=== PATIENT | female | born 1960 | race Caucasian/White ===

== ENCOUNTER 2016-08-09 11:20 | Inpatient (IN) | payer OTHER ==
[~2016-08-09] VITALS: Ht 167.6 cm; Wt 77.0 kg
[2016-08-09] VITALS (7 sets, daily range): BP systolic 137–169; BP diastolic 73–90; PULSE 84–103; RESP 18–20; TEMP 97.8–99.3; O2SAT 91–98
[~2016-08-09 11:20] MED LIST: ASPI1TAB69 PO; CITA40TA4 PO; GABA800T PO; HYDR-3535 PO; HYDR25TA5 PO; LISI40TA PO; MIRA33504 PO; SIMV40TA PO; TRAM50TA PO; WARF-23 PO
--- NOTE | 2016-08-09 11:30 | PD ---
HPI Chief Complaint: Altered Mental Status Time Seen by Provider: 11:30 Travel History International Travel<30 days: No Contact w/Intl Traveler<30days: No Traveled to known affect area: No History of Present Illness HPI 55-year-old female with history of some dependent diabetes and reportedly history of stroke, brought into the emergency department via EMS with change in mental status. Patient appears somewhat delirious, but does respond to questions and commands appropriately. There was some question of neurological symptoms suggestive of stroke. Patient reports several day history of burning urination, and vomiting last evening and today. Patient does not complain of pain or headache. Patient does know her name but cannot remember her date of . Patient is allergic to penicillin. PFSH Past Medical History Arthritis: Yes Asthma: Yes Autoimmune Disease: Yes (LUPUS) Blood Disorders: No Anxiety: Yes Depression: Yes Heart Rhythm Problems: No Cancer: No Cardiovascular Problems: No High Cholesterol: Yes Chest Pain: No Congestive Heart Failure: No COPD: No Cerebrovascular Accident: Yes (CVA November 2012) Diabetes: Yes Diminished Hearing: No Endocrine: Yes (DM II) Glaucoma: No Genitourinary: No Headaches: No Hepatitis: No Hiatal Hernia: Yes Hypertension: Yes Immune Disorder: Yes (LUPUS) Kidney Stones: No Musculoskeletal: Yes Neurologic: Yes (CVA November 2012) Psychiatric: Yes Reproductive: Yes (ovary removed) Respiratory: Yes (SLEEP APNEA) Migraines: No Myocardial Infarction: No Renal Failure: No Seizures: No Sickle Cell Disease: No Sleep Apnea: Yes Thyroid Disease: Yes (hypothyroidism) Ulcer: No Menopausal: Yes : 3 Para: 3 Ovarian Cysts: Yes (R) Tubal Ligation: Yes (R ) Past Surgical History Abdominal Surgery: Yes (Cholecystectomy) Appendectomy: No Cardiac Surgery: No Cholecystectomy: Yes Ear Surgery: No Endocrine Surgery: No Eye Surgery: No Genitourinary Surgery: No Gynecologic Surgery: Yes (ovary removed 15 yrs ago.) Oral Surgery: No Thoracic Surgery: No Other Surgery: Yes Social History Alcohol Use: Yes (OCCASIONALLY) Tobacco Use: No (MARIJUANA) Substance Use: Yes (MARIJUANA) Allergies-Medications (Allergen,Severity, Reaction): Coded Allergies: Penicillin (Verified Allergy, Severe, 06/28/16) Reported Meds & Prescriptions Reported Meds & Active Scripts Active Warfarin 5 Mg Tab 5 Mg PO DAILY Miralax Powder (Polyethylene Glycol 3350 Powder) 17 Gm Powd 17 Gm PO DAILY Mix and dissolve one measuring cap-ful (17 grams) in water or juice. Lisinopril 40 Mg Tab 40 Mg PO DAILY Hydrochlorothiazide 25 Mg Tab 25 Mg PO DAILY Gabapentin 800 Mg Tab 800 Mg PO TID Citalopram (Citalopram Hydrobromide) 40 Mg Tab 40 Mg PO DAILY Aspirin 81 Mg Tabdr 81 Mg PO DAILY Simvastatin 40 Mg Tab 40 Mg PO HS Lortab (Hydrocodone-Acetaminophen) 10-325 Mg Tab 1 Tab PO Q4H PRN Tramadol (Tramadol HCl) 50 Mg Tab 50 Mg PO Q4H PRN Review of Systems ROS Limitations: Clinical Condition, Altered Mental Status General / Constitutional: No: Fever Eyes: No: Visual changes HENT: No: Headaches Cardiovascular: No: Chest Pain or Discomfort Respiratory: No: Shortness of Breath Gastrointestinal: No: Abdominal Pain Genitourinary: No: Dysuria Musculoskeletal: No: Pain Skin: No Rash Neurologic: No: Weakness Psychiatric: No: Depression Endocrine: No: Polydipsia Hematologic/Lymphatic: No: Easy Bruising Physical Exam Exam Limitations: Clinical Condition, Altered Mental Status Narrative GENERAL: Patient appears somewhat delirious, but no acute distress. Patient smells of urine. SKIN: Warm and dry. Mild pallor. Mildly poor turgor. HEAD: Atraumatic. Normocephalic. EYES: Pupils equal and round. No scleral icterus. No injection or drainage. ENT: No nasal bleeding or discharge. Mucous membranes pink and somewhat dry. TMs are clear. Pharynx is normal. Airway is patent. NECK: Trachea midline. No JVD. Supple nontender. CARDIOVASCULAR: Regular rate and rhythm. No murmurs gallops or rubs. RESPIRATORY: No accessory muscle use. Clear to auscultation. Breath sounds equal bilaterally. GASTROINTESTINAL: Abdomen soft, non-tender, nondistended. Hepatic and splenic margins not palpable. No CVA tenderness. MUSCULOSKELETAL: Extremities without clubbing, cyanosis, or edema. No obvious deformities. NEUROLOGICAL: Awake and alert. No obvious cranial nerve deficits. Motor grossly within normal limits. Five out of 5 muscle strength in the arms and legs. Patient appears delirious but does respond appropriately to questions, but has memory issues regarding her date of . PSYCHIATRIC: Appropriate mood and affect; insight and judgment normal. Data Data Last Documented VS Vital Signs Date Time Temp Pulse Resp B/P Pulse Ox O2 Delivery O2 Flow Rate FiO2 08/09/16 13:52 84 18 137/84 98 Room Air 08/09/16 11:38 3 08/09/16 11:33 99.3 Orders Electrocardiogram (08/09/16 11:31) Alcohol (Ethanol) (08/09/16 11:31) Ammonia (08/09/16 11:31) Complete Blood Count With Diff (08/09/16 11:31) Comprehensive Metabolic Panel (08/09/16 11:31) Creatine Kinase (Cpk) (08/09/16 11:31) Drug Screen, Random Urine (08/09/16 11:31) Prothrombin Time / Inr (Pt) (08/09/16 11:31) Act Partial Throm Time (Ptt) (08/09/16 11:31) Thyroid Stimulating Hormone (08/09/16 11:31) Lactic Acid Sepsis Protocol (08/09/16 11:31) Urinalysis - C+S If Indicated (08/09/16 11:31) Blood Culture (08/09/16 11:31) Chest, Single Ap (08/09/16 11:31) Ct Brain W/O Iv Contrast(Rout) (08/09/16 11:31) Blood Glucose (08/09/16 11:31) Ecg Monitoring (08/09/16 11:31) Iv Access Insert/Monitor (08/09/16 11:31) Oximetry (08/09/16 11:31) Sodium Chloride 0.9% Flush (Ns Flush) (08/09/16 11:45) Sodium Chlor 0.9% 1000 Ml Inj (Ns 1000 M (08/09/16 11:31) Urinary Catheter Insert/Apply (08/09/16 11:41) Aztreonam Inj (Azactam Inj) (08/09/16 11:54) Gentamicin Inj (Gentamicin Inj) (08/09/16 11:54) Sodium Chlor 0.9% 1000 Ml Inj (Ns 1000 M (08/09/16 11:54) Sodium Chlor 0.9% 1000 Ml Inj (Ns 1000 M (08/09/16 11:54) Sodium Chlor 0.9% 1000 Ml Inj (Ns 1000 M (08/09/16 11:54) Urine Culture (08/09/16 12:01) Type And Screen (08/09/16 12:35) Ct Abd/Pel W/O Iv Contrast (08/09/16 ) Ondansetron Inj (Zofran Inj) (08/09/16 13:15) Pantoprazole Inj (Protonix Inj) (08/09/16 13:15) Phytonadione (Mephyton) (08/09/16 13:30) Admit To Inpatient (08/09/16 ) Code Status (08/09/16 13:33) Vital Signs (Adult) Q4H (08/09/16 13:33) Activity Oob With Assistance (08/09/16 13:33) Sodium Chloride 0.9% Flush (Ns Flush) (08/09/16 13:45) Sodium Chloride 0.9% Flush (Ns Flush) (08/09/16 21:00) Acetaminophen (Tylenol) (08/09/16 13:45) Ondansetron Inj (Zofran Inj) (08/09/16 13:45) Magnesium Hydroxide Liq (Milk Of Magnesi (08/09/16 13:45) Pt Request For Service (08/09/16 13:33) Scd Bilateral/Knee High JOE.BID (08/09/16 13:33) Naloxone Inj (Narcan Inj) (08/09/16 13:45) Inpatient Certification (08/09/16 ) Free Thyroxine (T4) (08/09/16 13:33) Rapid Plasma Regin (Rpr) W Ttr (08/09/16 13:33) Vitamin B12 (08/09/16 13:33) Folate, Serum (08/09/16 13:33) Phytonadione Inj (Vitamin K Inj) (08/09/16 14:00) Aspirin Ec (Ecotrin Ec) (08/10/16 09:00) Citalopram (Celexa) (08/10/16 09:00) Gabapentin (Neurontin) (08/09/16 18:00) Hydrochlorothiazide (Hydrodiuril) (08/10/16 09:00) Acetamin-Hydrocod 325-10 Mg ([place] 10-32 (08/09/16 14:00) Lisinopril (Prinivil) (08/10/16 09:00) Polyethylene Glycol (Miralax) (08/10/16 09:00) Warfarin (Coumadin) (08/10/16 09:00) (Nf) Simvastatin (08/09/16 21:00) Prothrombin Time / Inr (Pt) (08/10/16 06:00) Medium Novolog Scale (08/09/16 16:00) Diet Diabetic (08/09/16 Lunch) Nursing Bedside Swallow Assess .ONCE (08/09/16 13:52) Labs Laboratory Tests Test 08/09/16 08/09/16 08/09/16 11:40 11:46 12:01 Sodium Level 134 MEQ/L Potassium Level 4.7 MEQ/L Chloride Level 92 MEQ/L Carbon Dioxide Level 20.6 MEQ/L Anion Gap 21 MEQ/L Blood Urea Nitrogen 104 MG/DL Creatinine 8.37 MG/DL Estimat Glomerular Filtration 5 ML/MIN Rate Random Glucose 138 MG/DL Lactic Acid Level 2.1 mmol/L Calcium Level 8.4 MG/DL Total Bilirubin 0.4 MG/DL Aspartate Amino Transf 53 U/L (AST/SGOT) Alanine Aminotransferase 54 U/L (ALT/SGPT) Alkaline Phosphatase 105 U/L Ammonia 27 MCMOL/L Total Creatine Kinase 113 U/L Total Protein 7.0 GM/DL Albumin 3.6 GM/DL Thyroid Stimulating Hormone 0.192 uIU/ML 3rd Gen Ethyl Alcohol Level LESS THAN 3 MG/DL White Blood Count 21.2 TH/MM3 Red Blood Count 4.53 MIL/MM3 Hemoglobin 12.5 GM/DL Hematocrit 37.0 % Mean Corpuscular Volume 81.7 FL Mean Corpuscular Hemoglobin 27.5 PG Mean Corpuscular Hemoglobin 33.7 % Concent Red Cell Distribution Width 15.2 % Platelet Count 321 TH/MM3 Mean Platelet Volume 9.5 FL Neutrophils (%) (Auto) 84.3 % Lymphocytes (%) (Auto) 7.4 % Monocytes (%) (Auto) 7.8 % Eosinophils (%) (Auto) 0.0 % Basophils (%) (Auto) 0.5 % Neutrophils # (Auto) 17.9 TH/MM3 Lymphocytes # (Auto) 1.6 TH/MM3 Monocytes # (Auto) 1.7 TH/MM3 Eosinophils # (Auto) 0.0 TH/MM3 Basophils # (Auto) 0.1 TH/MM3 CBC Comment AUTO DIFF Differential Comment AUTO DIFF CONFIRMED Platelet Estimate NORMAL Platelet Morphology Comment NORMAL Ovalocytes 1+ Prothrombin Time 127.2 SEC Prothromb Time International 10.4 RATIO Ratio Activated Partial 50.4 SEC Thromboplast Time Urine Color YELLOW Urine Turbidity HAZY Urine pH 5.5 Urine Specific [place] 1.013 Urine Protein 30 mg/dL Urine Glucose (UA) NEG mg/dL Urine Ketones TRACE mg/dL Urine Occult Blood SMALL Urine Nitrite NEG Urine Bilirubin NEG Urine Urobilinogen LESS THAN 2.0 MG/DL Urine Leukocyte Esterase SMALL Urine RBC 4 /hpf Urine WBC 4 /hpf Urine Squamous Epithelial <1 /hpf Cells Urine Bacteria MOD /hpf Urine Hyaline Casts 4 /lpf Microscopic Urinalysis Comment CATH-CULTURE IND Urine Opiates Screen NEG Urine Barbiturates Screen NEG Urine Amphetamines Screen NEG Urine Benzodiazepines Screen NEG Urine Cocaine Screen NEG Urine Cannabinoids Screen NEG MDM Medical Decision Making Medical Screen Exam Complete: Yes Emergency Medical Condition: Yes Differential Diagnosis Altered mental status. Urosepsis. Sepsis. Dehydration. Electrolyte imbalance. Possible intracranial process. Narrative Course Patient is medically stable at time of exam. Labs ordered including CBC, CMP, creatinine kinase, drug screen, lactic acid protocol, PT PTT and INR, alcohol level, urinalysis, and TSH. Blood cultures ordered 2. EKG and chest x-ray are ordered. Head CT is ordered. IV access is obtained and urinary catheter is applied. Patient is started on normal saline bolus of 1000 mL 3. Patient is started on Aztreonam 1000 mg IV as well as gentamicin 380 mg IV. Chest x-ray is unremarkable per radiologist. Head CT is unremarkable for acute process per radiologist. EKG shows sinus rhythm with somewhat shortened AR interval otherwise unremarkable. This is reviewed with Dr. Pearson. CBC shows leukocytosis of 21.2. Lactic acid is 2.1. Urinalysis shows obvious UTI and urine culture is pending. PT is 127.2 with an INR of 10.4. Type and screen is ordered due to the patient's high INR. Rectal Guaiac is slightly positive. Patient is discussed with Dr. Pearson, and the patient is assessed by her as well. CT of the abdomen is added as the patient's urine is questionable as a source for her sepsis. Patient is given 40 mg pantoprazole IV as well as 5 mg IV vitamin K. Call was placed to the hospitalist for admission. 1355 [address] patient discussed with Dr. Orellana who is admitting the patient. CT of the abdomen is still pending. Diagnosis Primary Impression: Sepsis due to urinary tract infection Additional Impressions: Elevated INR (international normalized ratio) due to prior anticoagulant medication ingestion Renal insufficiency Admitting Information Admitting Physician Requests: Admit Condition: Stable Arpan Gill Aug 09, 2016 11:30
[2016-08-09] MEDS ORDERED: SODIUM CHLOR 0.9% 1000 ML INJ 1,000 ML IV SCH (11:31)
[2016-08-09] MEDS ORDERED: SODIUM CHLORIDE 0.9% FLUSH 5 ML FLUSH IVF PRN (11:45)
[2016-08-09] MEDS ORDERED: SODIUM CHLORIDE 0.9% IV STA (11:54)
[2016-08-09] MEDS ORDERED: SODIUM CHLOR 0.9% 1000 ML INJ 1,000 ML IV ONE ×2 (11:54)
[2016-08-09] MEDS ORDERED: SODIUM CHLOR 0.9% 1000 ML INJ 400 ML IV ONE (11:54)
[2016-08-09] MEDS ORDERED: GENTAMICIN IV STA (11:54)
[2016-08-09] MEDS ORDERED: AZTREONAM INJ 1,000 MG in SODIUM CHLORIDE 0.9% INJ 100 ML IV STA (11:54)
--- NOTE | 2016-08-09 12:03 | RADRPT ---
EXAM DATE/TIME: 08/09/2016 11:39 [facility] COMPARISON: CHEST SINGLE AP, July 13, 2014, 11:14. INDICATIONS : Fever, short of breath MEDICAL HISTORY : Diabetes mellitus type II. SURGICAL HISTORY : None. ENCOUNTER: Initial ACUITY: 1 day PAIN SCORE: Non-responsive. LOCATION: Bilateral chest FINDINGS: The cardiac silhouette is normal in transverse diameter. The lungs are hypoinflated but clear. No eff usions are identified. CONCLUSION: 1. No acute cardiopulmonary disease. Thomas López MD on August 09, 2016 at 12:01 Board Certified Radiologist. This report was verified electronically.
[2016-08-09 12:05] LABS: AUTOMATED NEUTROPHIL # 17.9 TH/MM3 (1.8-7.7); BASOPHIL # 0.1 TH/MM3 (0-0.2); BASOPHIL % 0.5 % (0.0-2.0); LYMPH % 7.4 % (9.0-44.0); LYMPHOCYTE # 1.6 TH/MM3 (1.0-4.8); MEAN CELL VOLUME 81.7 FL (80.0-100.0); MEAN CORPUSCULAR HEMOGLOBIN 27.5 PG (27.0-34.0); MEAN CORPUSCULAR HGB CONC 33.7 % (32.0-36.0); MONO % 7.8 % (0.0-8.0); NEUT % 84.3 % (16.0-70.0); PLATELET COUNT 321 TH/MM3 (150-450); RED BLOOD COUNT 4.53 MIL/MM3 (4.00-5.30); RED CELL DISTRIBUTION WIDTH 15.2 % (11.6-17.2); WHITE BLOOD COUNT 21.2 TH/MM3 (4.0-11.0)
[2016-08-09 12:07] LABS: HEMO FLAGS AUTO DIFF
[2016-08-09 12:19] LABS: ALT (GPT) 54 U/L (10-53); ANION GAP 21 MEQ/L (5-15); AST (GOT) 53 U/L (15-37); BICARBONATE 20.6 MEQ/L (21.0-32.0); BLOOD UREA NITROGEN 104 MG/DL (7-18); CHLORIDE 92 MEQ/L (98-107); GLOMERULAR FILTRATION RATE 5 ML/MIN (>89); POTASSIUM 4.7 MEQ/L (3.5-5.1); SODIUM (NA) 134 MEQ/L (136-145)
[2016-08-09 12:29] LABS: ALKALINE PHOSPHATASE 105 U/L (45-117); CREATINE KINASE 113 U/L (26-192); TOTAL BILIRUBIN ADULT 0.4 MG/DL (0.2-1.0)
--- NOTE | 2016-08-09 12:30 | RADRPT ---
EXAM DATE/TIME: 08/09/2016 12:15 [facility] COMPARISON: MRI BRAIN W & W/O CONTRAST, July 24, 2014, 16:07. CT BRAIN W/O CONTRAST, July 18, 2014, 23: 24. INDICATIONS : Altered mental status today. RADIATION DOSE: 56.35 CTDIvol (mGy) MEDICAL HISTORY : Stroke. Hypertension. diabetes SURGICAL HISTORY : None. ENCOUNTER: Initial ACUITY: 1 day PAIN SCALE: 0/10 LOCATION: Bilateral head TECHNIQUE: Multiple contiguous axial images were obtained of the head. Using automated exposure control and adj ustment of the mA and/or kV according to patient size, radiation dose was kept as low as reasonably a chievable to obtain optimal diagnostic quality images. FINDINGS: Old lacunar infarcts are evident in the left basalganglia. Ventricular size is appropriate. There i s no parenchymal hemorrhage, acute infarction or extra-axial fluid. There is an 1 cm calcification h igh on the right stable in the interval, probably associated with the skull. Posterior fossa is unre markable. CONCLUSION: Negative for an acute process. Rasheed Zhou MD FACR on August 09, 2016 at 12:26 Board Certified Radiologist. This report was verified electronically.
[2016-08-09 12:32] LABS: APTT (PATIENT) 50.4 SEC (24.3-30.1); PROTHROMBIN TIME - PATIENT 127.2 SEC (9.8-11.6)
[2016-08-09 12:32] LABS: BACTERIA, URINE MOD /hpf; BLOOD, URINE SMALL (NEG); COMMENT (UR) CATH-CULTURE IND; CULTURE IF INDICATED CATH CULTURE IND; GLUCOSE,URINE NEG (NEG); HYALINE CAST, URINE 4 /lpf (RARE); KETONE, URINE TRACE mg/dL (NEG); NITRITE,URINE NEG (NEG); PH, URINE 5.5 (5.0-8.5); SQUAMOUS EPITHELIAL CELL URINE <1 /hpf (0-5); URINE COLOR YELLOW (YELLW/STRAW)
[2016-08-09 12:35] LABS: INTERNATIONAL NORMALIZED RATIO 10.4 RATIO
[2016-08-09 12:35] LABS: AMPHETAMINE, URINE NEG (NEG); BARBITURATES, URINE NEG (NEG); COCAINE, URINE NEG (NEG)
[2016-08-09 12:39] LABS: OVALOCYTES 1+ (NORMAL); PLATELET ESTIMATE SMEAR NORMAL (NORMAL); PLATELET MORPHOLOGY NORMAL (NORMAL); SCAN/DIFF AUTO DIFF CONFIRMED
[2016-08-09] MEDS ORDERED: ONDANSETRON HCL 4 MG/2 ML VIAL IVP ONE (13:15)
[2016-08-09] MEDS ORDERED: PANTOPRAZOLE SODIUM 40 MG VIAL IVP ONE (13:15)
[2016-08-09] MEDS ORDERED: PHYTONADIONE 5 MG TAB PO ONE (13:30)
[2016-08-09] MEDS ORDERED: NALOXONE HCL 0.4 MG/ML AMP IV PRN (13:45)
[2016-08-09] MEDS ORDERED: MAGNESIUM HYDROXIDE SUSP 30 ML CUP PO PRN (13:45)
[2016-08-09] MEDS ORDERED: ACETAMINOPHEN 325 MG TAB PO PRN (13:45)
[2016-08-09] MEDS ORDERED: ONDANSETRON HCL 4 MG/2 ML VIAL IVP PRN (13:45)
[2016-08-09] MEDS ORDERED: SODIUM CHLORIDE 0.9% FLUSH 5 ML FLUSH FLUSH PRN (13:45)
[2016-08-09 13:58] LABS: LACTIC ACID GHOST NOT REPORTABLE
[2016-08-09] MEDS ORDERED: PHYTONADIONE INJ 10 MG in SODIUM CHLORIDE 0.9% INJ 50 ML IV ONE (14:00)
--- NOTE | 2016-08-09 14:23 | RADRPT ---
EXAM DATE/TIME: 08/09/2016 13:28 [facility] COMPARISON: No previous studies available for comparison. INDICATIONS : Burning urination with fever today. ORAL CONTRAST: No oral contrast ingested. RADIATION DOSE: 9.96 CTDIvol (mGy) MEDICAL HISTORY : Lupus. Hernia, hiatal. Diabetes SURGICAL HISTORY : Cholecystectomy. Tubal ligation. Right ovarian cyst ENCOUNTER: Initial ACUITY: 1 day PAIN SCALE: 0/10 LOCATION: Abdomen TECHNIQUE: Volumetric scanning of the abdomen and pelvis was performed. Using automated exposure control and ad justment of the mA and/or kV according to patient size, radiation dose was kept as low as reasonably achievable to obtain optimal diagnostic quality images. FINDINGS: Consolidative changes are seen in the right lung base. The liver is somewhat small and shrunken. Dominguez rgical clips are seen in the gallbladder fossa. Minimal calcifications are seen in the pancreas. The right adrenal is normal. There is a low density mass in the left adrenal measuring 1.4 cm, most likely an adenoma. Right and left kidneys are unremarkable. There are no renal stones identified. In the pelvis, adnexal regions are unremarkable. Bladder is decompressed by a Cardoso. Mild degenerative changes are noted. CONCLUSION: 1. Minimal consolidative changes in the right base, suspicious for an inflammatory process. 2. Left adrenal mass, probably adenoma. Rasheed Zhou MD FACR on August 09, 2016 at 13:58 Board Certified Radiologist. This report was verified electronically.
[2016-08-09 15:11] LABS: FREE T4 1.31 NG/DL (0.76-1.46)
[2016-08-09] MEDS: INSULIN ASPART SUPPLEMENTAL SCALE SQ SCH ×2 (15:57→22:18)
[2016-08-09] MEDS ORDERED: METF1000 PO (16:01)
--- NOTE | 2016-08-09 17:15 | PD ---
Data Data Last Documented VS Vital Signs Date Time Temp Pulse Resp B/P Pulse Ox O2 Delivery O2 Flow Rate FiO2 08/09/16 13:52 98.2 84 18 137/84 98 Room Air 08/09/16 11:38 3 Orders Electrocardiogram (08/09/16 11:31) Alcohol (Ethanol) (08/09/16 11:31) Ammonia (08/09/16 11:31) Complete Blood Count With Diff (08/09/16 11:31) Comprehensive Metabolic Panel (08/09/16 11:31) Creatine Kinase (Cpk) (08/09/16 11:31) Drug Screen, Random Urine (08/09/16 11:31) Prothrombin Time / Inr (Pt) (08/09/16 11:31) Act Partial Throm Time (Ptt) (08/09/16 11:31) Thyroid Stimulating Hormone (08/09/16 11:31) Lactic Acid Sepsis Protocol (08/09/16 11:31) Urinalysis - C+S If Indicated (08/09/16 11:31) Blood Culture (08/09/16 11:31) Chest, Single Ap (08/09/16 11:31) Ct Brain W/O Iv Contrast(Rout) (08/09/16 11:31) Blood Glucose (08/09/16 11:31) Ecg Monitoring (08/09/16 11:31) Iv Access Insert/Monitor (08/09/16 11:31) Oximetry (08/09/16 11:31) Sodium Chloride 0.9% Flush (Ns Flush) (08/09/16 11:45) Sodium Chlor 0.9% 1000 Ml Inj (Ns 1000 M (08/09/16 11:31) Urinary Catheter Insert/Apply (08/09/16 11:41) Aztreonam Inj (Azactam Inj) (08/09/16 11:54) Gentamicin Inj (Gentamicin Inj) (08/09/16 11:54) Sodium Chlor 0.9% 1000 Ml Inj (Ns 1000 M (08/09/16 11:54) Sodium Chlor 0.9% 1000 Ml Inj (Ns 1000 M (08/09/16 11:54) Sodium Chlor 0.9% 1000 Ml Inj (Ns 1000 M (08/09/16 11:54) Urine Culture (08/09/16 12:01) Type And Screen (08/09/16 12:35) Ct Abd/Pel W/O Iv Contrast (08/09/16 ) Ondansetron Inj (Zofran Inj) (08/09/16 13:15) Pantoprazole Inj (Protonix Inj) (08/09/16 13:15) Phytonadione (Mephyton) (08/09/16 13:30) Admit To Inpatient (08/09/16 ) Code Status (08/09/16 13:33) Vital Signs (Adult) Q4H (08/09/16 13:33) Activity Oob With Assistance (08/09/16 13:33) Sodium Chloride 0.9% Flush (Ns Flush) (08/09/16 13:45) Sodium Chloride 0.9% Flush (Ns Flush) (08/09/16 21:00) Acetaminophen (Tylenol) (08/09/16 13:45) Ondansetron Inj (Zofran Inj) (08/09/16 13:45) Magnesium Hydroxide Liq (Milk Of Magnesi (08/09/16 13:45) Pt Request For Service (08/09/16 13:33) Scd Bilateral/Knee High JOE.BID (08/09/16 13:33) Naloxone Inj (Narcan Inj) (08/09/16 13:45) Inpatient Certification (08/09/16 ) Free Thyroxine (T4) (08/09/16 13:33) Rapid Plasma Regin (Rpr) W Ttr (08/09/16 13:33) Vitamin B12 (08/09/16 13:33) Folate, Serum (08/09/16 13:33) Phytonadione Inj (Vitamin K Inj) (08/09/16 14:00) Aspirin Ec (Ecotrin Ec) (08/10/16 09:00) Citalopram (Celexa) (08/10/16 09:00) Gabapentin (Neurontin) (08/09/16 18:00) Hydrochlorothiazide (Hydrodiuril) (08/10/16 09:00) Acetamin-Hydrocod 325-10 Mg ([place] 10-32 (08/09/16 14:00) Lisinopril (Prinivil) (08/10/16 09:00) Polyethylene Glycol (Miralax) (08/10/16 09:00) Warfarin (Coumadin) (08/10/16 09:00) Pravastatin (Pravachol) (08/09/16 21:00) Prothrombin Time / Inr (Pt) (08/10/16 06:00) Insulin Aspart Supplemtl Scale (Novolog (08/09/16 16:00) Diet Diabetic (08/09/16 Lunch) Nursing Bedside Swallow Assess .ONCE (08/09/16 13:52) Admit Order (Ed Use Only) (08/09/16 13:57) Labs Laboratory Tests Test 08/09/16 08/09/16 08/09/16 08/09/16 11:40 11:46 12:01 13:21 Sodium Level 134 MEQ/L Potassium Level 4.7 MEQ/L Chloride Level 92 MEQ/L Carbon Dioxide Level 20.6 MEQ/L Anion Gap 21 MEQ/L Blood Urea Nitrogen 104 MG/DL Creatinine 8.37 MG/DL Estimat Glomerular Filtration 5 ML/MIN Rate Random Glucose 138 MG/DL Lactic Acid Level 2.1 mmol/L Calcium Level 8.4 MG/DL Total Bilirubin 0.4 MG/DL Aspartate Amino Transf 53 U/L (AST/SGOT) Alanine Aminotransferase 54 U/L (ALT/SGPT) Alkaline Phosphatase 105 U/L Ammonia 27 MCMOL/L Total Creatine Kinase 113 U/L Total Protein 7.0 GM/DL Albumin 3.6 GM/DL Vitamin B12 Level 1343 PG/ML Folate 5.0 NG/ML Free Thyroxine 1.31 NG/DL Thyroid Stimulating Hormone 0.192 uIU/ML 3rd Gen Ethyl Alcohol Level LESS THAN 3 MG/DL White Blood Count 21.2 TH/MM3 Red Blood Count 4.53 MIL/MM3 Hemoglobin 12.5 GM/DL Hematocrit 37.0 % Mean Corpuscular Volume 81.7 FL Mean Corpuscular Hemoglobin 27.5 PG Mean Corpuscular Hemoglobin 33.7 % Concent Red Cell Distribution Width 15.2 % Platelet Count 321 TH/MM3 Mean Platelet Volume 9.5 FL Neutrophils (%) (Auto) 84.3 % Lymphocytes (%) (Auto) 7.4 % Monocytes (%) (Auto) 7.8 % Eosinophils (%) (Auto) 0.0 % Basophils (%) (Auto) 0.5 % Neutrophils # (Auto) 17.9 TH/MM3 Lymphocytes # (Auto) 1.6 TH/MM3 Monocytes # (Auto) 1.7 TH/MM3 Eosinophils # (Auto) 0.0 TH/MM3 Basophils # (Auto) 0.1 TH/MM3 CBC Comment AUTO DIFF Differential Comment AUTO DIFF CONFIRMED Platelet Estimate NORMAL Platelet Morphology Comment NORMAL Ovalocytes 1+ Prothrombin Time 127.2 SEC Prothromb Time International 10.4 RATIO Ratio Activated Partial 50.4 SEC Thromboplast Time Urine Color YELLOW Urine Turbidity HAZY Urine pH 5.5 Urine Specific [place] 1.013 Urine Protein 30 mg/dL Urine Glucose (UA) NEG mg/dL Urine Ketones TRACE mg/dL Urine Occult Blood SMALL Urine Nitrite NEG Urine Bilirubin NEG Urine Urobilinogen LESS THAN 2.0 MG/DL Urine Leukocyte Esterase SMALL Urine RBC 4 /hpf Urine WBC 4 /hpf Urine Squamous Epithelial <1 /hpf Cells Urine Bacteria MOD /hpf Urine Hyaline Casts 4 /lpf Microscopic Urinalysis Comment CATH-CULTURE IND Urine Opiates Screen NEG Urine Barbiturates Screen NEG Urine Amphetamines Screen NEG Urine Benzodiazepines Screen NEG Urine Cocaine Screen NEG Urine Cannabinoids Screen NEG Blood Type A POSITIVE Antibody Screen NEGATIVE MDM Supervised Visit with [facility]: Yes Narrative Course The history, exam, and medical decision-making in the associated midlevel provider note were completed with my assistance. I reviewed and agree with the findings presented. I attest that I had a [id number] encounter with the patient on the same day, and personally performed and documented my assessment and findings in the medical record. *My assessment and Findings: This is a 55-year-old female who has a history of stroke in the past who presents to the emergency department with persistent vomiting and poor oral intake over the past week. She is very ill-appearing on exam, dry, with sunken eyes and a depressed mental status but she does awaken and per her has a baseline mental status. She was placed on a monitor and an IV was established. Labs were obtained which demonstrate a leukocytosis and acute renal failure. Her potassium is normal. Her INR is 10. She was Hemoccult positive and her BUN is quite high, concerning for possible GI bleed. I'm not certain what her source of infection is. She does may have an early pneumonia visualized on CT scan of the abdomen. She also has some whites in her urinalysis. Patient was covered with broad-spectrum antibiotics and given IV hydration. She will be admitted for continued renal and infectious disease management. Diagnosis Primary Impression: Sepsis due to urinary tract infection Additional Impressions: Elevated INR (international normalized ratio) due to prior anticoagulant medication ingestion Renal insufficiency Condition: Stable Lili,Denise Jade MD Aug 09, 2016 17:14
[2016-08-09] MEDS: GABAPENTIN 400 MG CAP PO SCH (18:23)
--- NOTE | 2016-08-09 18:28 | HHI.HP ---
HPI Service [facility] Hospitalists Primary Care Physician Shan Quick MD Admission Diagnosis Sepsis/Renal Insufficientcy/Elevated INR/Guiac Pos. Chief Complaint: AMS Travel History International Travel<30 Days: No Contact w/Intl Traveler <30 Da: No Traveled to Known Affected Are: No History of Present Illness Mrs. Velasquez is a 55 y/o WF with diabetes, reportedly history of stroke, HTN , and hyperlipidemia who was brought into the ED on 08/09/16 via EMS with change in mental status. Per the ER notes the pt appeared somewhat delirious at initial presentation, but was responding to questions and commands appropriately. There was some question of neurological symptoms suggestive of stroke. Patients reported that for the last week the pt has had vomiting 2-3 times per day and very little po intake. He states that the emesis was dark colored but no red blood. Pt had some loose stools but denies any diarrhea. In the ED pt was noted to have an elevated WBC count of 21.2 and acute renal failure with Cr 8.37. Her INR was significantly elevated at 10.4. She was given a dose of Vitamin K po and IV in the ER. Pt was given 3L of IVF in the ER at well. Pts states that while she was in the ER the pt was responding to questions although somewhat inappropriately. Since arriving to the medical floor she has stopped responding to questions and just stares blankly when you speak to her. She will turn when you say her name but does not follow commands. Pts also noted that she had been having some coughing recently but no reported fevers or chills at home. Review of Systems ROS Limitations: Altered Mental Status Gastrointestinal: COMPLAINS OF: Vomiting Past Family Social History Past Medical History Diabetes mellitus on OHA Hypothyroidism Hyperlipidemia Hypertension Osteoarthritis Restless leg syndrome Anxiety/Depression CVA X 3, felt to be secondary to patent foramen ovale is present with R to L shunting noted on KAMERON in 2013 Lupus Rotator cuff tear: Fall 2014 Past Surgical History Loop recorder implantation in 2015, MRI compatible KAMERON in 2014 Cholecystectomy, 1996 Right oophorosalpingectomy, 1996 Reported Medications Warfarin 5 Mg Tab 5 Mg PO DAILY Lisinopril 40 Mg Tab 40 Mg PO DAILY Hydrochlorothiazide 25 Mg Tab 25 Mg PO DAILY Gabapentin 800 Mg Tab 800 Mg PO TID Citalopram (Citalopram Hydrobromide) 40 Mg Tab 40 Mg PO DAILY Aspirin 81 Mg Tabdr 81 Mg PO DAILY Simvastatin 40 Mg Tab 40 Mg PO HS Lortab (Hydrocodone-Acetaminophen) 10-325 Mg Tab 1 Tab PO Q4H PRN Metformin (Metformin HCl) 1,000 Mg Tab 1,000 Mg PO BIDPC With meals Allergies: Coded Allergies: Penicillin (Verified Allergy, Severe, 08/18/16) Family History Father's at 63 of throat and tongue cancer Mother is at 55 cardiac complications One sister has cardiac disease and hypertension Social History Denies any tobacco, alcohol, or illicit drug use 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 Does not respond to questioning. HEENT: Atraumatic. Normocephalic. No temporal or scalp tenderness. No scleral icterus. Airway patent. NECK: Trachea midline, supple, nontender. CARDIO: Regular RESP: CTA bilaterally. No wheezes, rales, or rhonchi. ABD: +BS, soft, non-tender, nondistended. EXT: Extremities without clubbing, cyanosis, or edema. NEURO: Awake, does not respond to questioning, does not follow commands. Laboratory Laboratory Tests Test 08/09/16 08/09/16 08/09/16 08/09/16 11:40 11:46 12:01 13:21 Sodium Level 134 Potassium Level 4.7 Chloride Level 92 Carbon Dioxide Level 20.6 Anion Gap 21 Blood Urea Nitrogen 104 Creatinine 8.37 Estimat Glomerular Filtration 5 Rate Random Glucose 138 Lactic Acid Level 2.1 Calcium Level 8.4 Total Bilirubin 0.4 Aspartate Amino Transf 53 (AST/SGOT) Alanine Aminotransferase 54 (ALT/SGPT) Alkaline Phosphatase 105 Ammonia 27 Total Creatine Kinase 113 Total Protein 7.0 Albumin 3.6 Vitamin B12 Level 1343 Folate 5.0 Free Thyroxine 1.31 Thyroid Stimulating Hormone 0.192 3rd Gen Ethyl Alcohol Level LESS THAN 3 White Blood Count 21.2 Red Blood Count 4.53 Hemoglobin 12.5 Hematocrit 37.0 Mean Corpuscular Volume 81.7 Mean Corpuscular Hemoglobin 27.5 Mean Corpuscular Hemoglobin 33.7 Concent Red Cell Distribution Width 15.2 Platelet Count 321 Mean Platelet Volume 9.5 Neutrophils (%) (Auto) 84.3 Lymphocytes (%) (Auto) 7.4 Monocytes (%) (Auto) 7.8 Eosinophils (%) (Auto) 0.0 Basophils (%) (Auto) 0.5 Neutrophils # (Auto) 17.9 Lymphocytes # (Auto) 1.6 Monocytes # (Auto) 1.7 Eosinophils # (Auto) 0.0 Basophils # (Auto) 0.1 CBC Comment AUTO DIFF Differential Comment AUTO DIFF CONFIRMED Platelet Estimate NORMAL Platelet Morphology Comment NORMAL Ovalocytes 1+ Prothrombin Time 127.2 Prothromb Time International 10.4 Ratio Activated Partial 50.4 Thromboplast Time Urine Color YELLOW Urine Turbidity HAZY Urine pH 5.5 Urine Specific [place] 1.013 Urine Protein 30 Urine Glucose (UA) NEG Urine Ketones TRACE Urine Occult Blood SMALL Urine Nitrite NEG Urine Bilirubin NEG Urine Urobilinogen LESS THAN 2.0 Urine Leukocyte Esterase SMALL Urine RBC 4 Urine WBC 4 Urine Squamous Epithelial <1 Cells Urine Bacteria MOD Urine Hyaline Casts 4 Microscopic Urinalysis Comment CATH-CULTURE IND Urine Opiates Screen NEG Urine Barbiturates Screen NEG Urine Amphetamines Screen NEG Urine Benzodiazepines Screen NEG Urine Cocaine Screen NEG Urine Cannabinoids Screen NEG Blood Type A POSITIVE Antibody Screen NEGATIVE Test 08/09/16 15:25 Lactic Acid Level 2.1 Date/Time Procedure Status Source Growth 08/09/16 12:01 Urine Culture Received Urine Catheterized Urine Pending 08/09/16 11:46 Aerobic Blood Culture Received Blood Peripheral Pending 08/09/16 11:46 Anaerobic Blood Culture Received Blood Peripheral Pending Result Diagram: 08/09/16 1146 08/09/16 1140 Imaging Last Impressions Head CT 08/09/16 1131 Signed Impressions: Service Date/Time: Tuesday, August 09, 2016 12:15 - CONCLUSION: Negative for an acute process. Rasheed Zhou MD FACR Chest X-Ray 08/09/16 1131 Signed Impressions: Service Date/Time: Tuesday, August 09, 2016 11:39 - CONCLUSION: 1. No acute cardiopulmonary disease. Thomas López MD Abdomen/Pelvis CT 08/09/16 0000 Signed Impressions: Service Date/Time: Tuesday, August 09, 2016 13:28 - CONCLUSION: 1. Minimal consolidative changes in the right base, suspicious for an inflammatory process. 2. Left adrenal mass, probably adenoma. Rasheed Zhou MD FACR Septic Shock Reassessment Heart: Regular rate and rhythm Lungs: Clear Skin: Warm Assessment and Plan Problem List: (1) Altered mental status Status: Acute Plan: - Pt admitted with altered mental status with elevated WBC count of 21,000, acute renal failure with creatinine greater than 8, and Coumadin toxicity with INR of 10 at admission. - Head CT in the ED was negative - CT Abd/pelvis (08/09/16) --> Minimal consolidative changes in the right base, suspicious for an inflammatory process. Left adrenal mass, probably adenoma. - US was abnormal and Urine culture is pending. - Blood cultures drawn and are pending. - Pt was given 3L of IVF in the ED - She was given a doze of Azactam and Gentamicin in the ER - She was given Vitamin K po and IV in the ER - Pt had a change in mentation from the ER to the floor with becoming less responsive to questioning and not following commands - Check MRI brain STAT - Repeat INR now and in AM - Case was discussed between Dr. Orellana and Dr. Nicolas and renal US has been ordered - Cont. IVF with NS @ 100mL/hr - Consult infectious disease for Abx recommendations. - Supportive care - DVT prophylaxis (2) Acute renal failure Status: Acute Plan: - Pt has acute on chronic renal failure - See above. (3) Coumadin toxicity Status: Acute Plan: - Pt is on Coumadin for hx of embolic CVA thought to possible be secondary to PFO - INR was 10 at admission - See above. (4) Hypertension Status: Chronic Plan: - Home meds held - Clonidine PRN (5) Diabetes mellitus Status: Chronic Plan: - NovoLog SSI - Accu checks (6) Hyperlipidemia Status: Chronic Assessment and Plan Patient examined. Assessment and plan formulated with Louise BOWSER I agree with the above. Physician Certification 2 Midnight Certification Type: Admission for Inpatient Services Order for Inpatient Services The services are ordered in accordance with Medicare regulations or non- Medicare payer requirements, as applicable. In the case of services not specified as inpatient-only, they are appropriately provided as inpatient services in accordance with the 2-midnight benchmark. Estimated LOS (days): 3 3 days is the estimated time the patient will need to remain in the hospital, assuming treatment plan goals are met and no additional complications. Post-Hospital Plan: Not yet determined Problem Qualifiers (1) Hypertension: Qualified Code: I10 - Essential hypertension Louise Mccallum Aug 09, 2016 18:28 John Orellana DO Aug 19, 2016 22:35
[2016-08-09] MEDS: SODIUM CHLOR 0.9% 1000 ML INJ 1,000 ML IV SCH (19:07)
[2016-08-09 19:26] LABS: INTERNATIONAL NORMALIZED RATIO 1.7 RATIO
[2016-08-09] MEDS ORDERED: cloNIDine HCL 0.1 MG TAB PO PRN (20:00)
--- NOTE | 2016-08-09 20:24 | RADRPT ---
EXAM DATE/TIME: 08/09/2016 19:55 [facility] COMPARISON: No previous studies available for comparison. INDICATIONS : Dizziness. MEDICAL HISTORY : Hypertension. Diabetes mellitus type 2. CVA, Hyperlipidema SURGICAL HISTORY : Cholecystectomy. Rotator cuff, left. [employer] Reveal Loop Monitor, Oophorosalpingectomy ENCOUNTER: Initial ACUITY: 1 day PAIN SCORE: 2/10 LOCATION: Bilateral cranial TECHNIQUE: Multiplanar, multisequence MRI of the brain was performed without contrast. FINDINGS: CEREBRUM: The ventricles are normal for age. No evidence of midline shift, mass lesion, hemorrhage or acute in farction. No extraaxial fluid collections are seen. The pituitary gland and suprasellar cistern are normal in configuration. There is an old cortical and white matter infarct of the left frontal lobe. Old areas of hemorrhage are seen of the left greater than right basal ganglia and the right posterio r frontal lobe near the vertex. WHITE MATTER: Mild to moderate, chronic flair signal abnormality seen in the bilateral periventricular white matter . POSTERIOR FOSSA: The cerebellum and brainstem are intact. The 4th ventricle is midline. The cerebellopontine angle is unremarkable. The cerebellar tonsils are normal in position. DIFFUSION IMAGING: No focal areas of restricted diffusion are seen. No evidence of acute infarction. EXTRACRANIAL: There is mucoperiosteal thickening essentially throughout the paranasal sinuses, most severe of the e thmoid and left maxillary. CONCLUSION: 1. No acute intracranial abnormality demonstrated. 2. Old ischemic/infarct changes and evidence of old parenchymal hemorrhage. Please see above. 3. Pansinusitis. Bal Watkins MD on August 09, 2016 at 20:18 Board Certified Radiologist. This report was verified electronically.
[2016-08-09] MEDS: SODIUM CHLORIDE 0.9% FLUSH 5 ML FLUSH FLUSH SCH (21:00)
[2016-08-09] MEDS: PRAVASTATIN SOD 80 MG TAB PO SCH (22:18)
[2016-08-10] VITALS (7 sets, daily range): BP systolic 100–137; BP diastolic 59–83; PULSE 76–86; RESP 18–20; TEMP 97.9–98.7; O2SAT 92–97
--- NOTE | 2016-08-10 00:07 | RADRPT ---
EXAM DATE/TIME: 08/09/2016 23:02 [facility] COMPARISON: No previous studies available for comparison. INDICATIONS : Cerebrovascular accident. MEDICAL HISTORY : Hypothyroidism. Hypercholesterolemia. Hernia, hiatal. CVA. Hyperlipidemia. HTN. Sleep apnea. Asthma. GERD. Ovarian cysts. Restless leg syndrome. Osteoarthritis. Type II Diabetes. Fatty liver. LUPUS. Sub stance use. Depression. Anxiety. SURGICAL HISTORY : Cholecystectomy. Tubal ligation. Right oophorectomy. ENCOUNTER: Subsequent ACUITY: 1 day PAIN SCORE: 0/10 LOCATION: Bilateral neck PEAK SYSTOLIC VELOCITIES (cm/sec): ICA/CCA RATIO: Right: 1.0 Left: 0.8 ICA: Right: 64 Left: 57 CCA: Right: 67 Left: 73 ECA: Right: 69 Left: 84 VERTEBRAL: Right: 40 antegrade Left: 42 antegrade Elevated flow velocities and ICA/CCA ratios have been found to correlate with increased degrees of vessel stenosis, calculated as percentage of diameter relative to a normal segment of distal ICA/CCA FINDINGS: RIGHT CAROTID: No significant stenosis is visualized. The waveforms are within normal limits. LEFT CAROTID: Mild eccentric plaquing in the bulb. Waveforms are satisfactory. No significant spectral broadening VERTEBRAL ARTERIES: Antegrade flow is seen in both vertebral arteries. MISCELLANEOUS: None. CONCLUSION: No evidence of flow-limiting carotid stenosis. Bal Bass MD on August 10, 2016 at 0:05 Board Certified Radiologist. This report was verified electronically.
--- NOTE | 2016-08-10 00:09 | RADRPT ---
EXAM DATE/TIME: 08/09/2016 23:19 [facility] COMPARISON: CT ABDOMEN & PELVIS W/O CONTRAST, August 09, 2016, 13:28. INDICATIONS : Increased BUN/creatinine. MEDICAL HISTORY : Hypothyroidism. Hypercholesterolemia. Hernia, hiatal. CVA. Hyperlipidemia. HTN. Sleep apnea. Asthma. GERD. Ovarian cysts. Restless leg syndrome. Osteoarthritis. Type II Diabetes. Fatty liver. LUPUS. Sub stance use. Depression. Anxiety. SURGICAL HISTORY : Cholecystectomy. Tubal ligation. Right oophorectomy. ENCOUNTER: Subsequent ACUITY: 1 day PAIN SCORE: 0/10 LOCATION: Bilateral flank MEASUREMENTS: RIGHT KIDNEY: 11.9 x 4.8 x 4.7 cm LEFT KIDNEY: 11.3 x 4.5 x 5.9 cm FINDINGS: RIGHT KIDNEY: Renal cortex is normal in thickness and echotexture. No hydronephrosis, stone, or mass. LEFT KIDNEY: Renal cortex is normal in thickness and echotexture. No hydronephrosis, stone, or mass. BLADDER: Decompressed with Cardoso catheter CONCLUSION: Normal examination. Bal Bass MD on August 10, 2016 at 0:06 Board Certified Radiologist. This report was verified electronically.
[2016-08-10] MEDS: SODIUM CHLOR 0.9% 1000 ML INJ 1,000 ML IV SCH ×2 (05:00→15:00)
[2016-08-10] MEDS: INSULIN ASPART SUPPLEMENTAL SCALE SQ SCH ×4 (05:27→20:19)
[2016-08-10 06:14] LABS: AUTOMATED NEUTROPHIL # 9.8 TH/MM3 (1.8-7.7); BASOPHIL % 0.2 % (0.0-2.0); HEMATOCRIT 34.1 % (35.0-46.0); HEMO FLAGS DIFF FINAL; LYMPH % 7.8 % (9.0-44.0); LYMPHOCYTE # 0.9 TH/MM3 (1.0-4.8); MEAN CELL VOLUME 83.5 FL (80.0-100.0); MEAN CORPUSCULAR HEMOGLOBIN 27.6 PG (27.0-34.0); MEAN CORPUSCULAR HGB CONC 33.1 % (32.0-36.0); MONO % 9.2 % (0.0-8.0); NEUT % 82.8 % (16.0-70.0); PLATELET COUNT 199 TH/MM3 (150-450); RED BLOOD COUNT 4.08 MIL/MM3 (4.00-5.30); RED CELL DISTRIBUTION WIDTH 15.1 % (11.6-17.2); WHITE BLOOD COUNT 11.9 TH/MM3 (4.0-11.0)
[2016-08-10 06:21] LABS: INTERNATIONAL NORMALIZED RATIO 1.1 RATIO; PROTHROMBIN TIME - PATIENT 12.5 SEC (9.8-11.6)
[2016-08-10 06:38] LABS: BICARBONATE 23.3 MEQ/L (21.0-32.0); MAGNESIUM 1.4 MG/DL (1.5-2.5); POTASSIUM 3.8 MEQ/L (3.5-5.1)
[2016-08-10 07:10] LABS: CALCIUM-PROTEIN CORRECTED 7.9 MG/DL (8.5-10.1)
[2016-08-10] MEDS ORDERED: HYDROCHLOROTHIAZIDE 25 MG TAB PO SCH (09:00)
[2016-08-10] MEDS: SODIUM CHLORIDE 0.9% FLUSH 5 ML FLUSH FLUSH SCH ×2 (09:00→20:19)
[2016-08-10] MEDS ORDERED: LISINOPRIL 20 MG TAB PO SCH (09:00)
[2016-08-10] MEDS ORDERED: WARFARIN SOD 5 MG TAB PO SCH (09:00)
[2016-08-10] MEDS ORDERED: CITALOPRAM HYDROBROMIDE 40 MG TAB PO SCH (09:00)
[2016-08-10] MEDS: GABAPENTIN 400 MG CAP PO SCH ×3 (09:00→18:00)
[2016-08-10] MEDS: ASPIRIN EC 81 MG TABEC PO SCH (09:00)
[2016-08-10] MEDS: POLYETHYLENE GLYCOL 17 GM PKG PO SCH (09:00)
[2016-08-10] MEDS ORDERED: MAGNESIUM SULFATE 1 GM PREMIX 100 ML IV ONE (09:45)
--- NOTE | 2016-08-10 10:18 | EKG ---
Date Performed: 08/09/2016 Time Performed: 11:54:07 PTAGE: 55 years EKG: Sinus rhythm WITH SHORT UT INTERVAL BORDERLINE LEFT AXIS DEVIATION BORDERLINE ECG Nonspecific ST-T wave changes C ompared to prior tracing no significant change PREVIOUS TRACING : 07/14/2014 04.55 DOCTOR: Carlin Becerra Interpretating Date/Time 08/10/2016 10:18:22
[2016-08-10 10:35] LABS: RAPID PLASMA REAGIN SCREEN NON-REACTIVE (NON-REACTVE)
--- NOTE | 2016-08-10 13:19 | MB ---
cc: PRATEEK WILSON MD DATE OF CONSULTATION 08/10/2016 REASON FOR CONSULTATION Elevated BUN and creatinine for evaluation. HISTORY OF PRESENT ILLNESS This is a 55-year-old female with a past medical history of hypertension, history of diabetes mellitus, hyperlipidemia, history of a stroke, who came to the emergency department yesterday because of altered mental status. I was called to see the patient because of a very high BUN and creatinine. She has a BUN of 104 yesterday and creatinine of 8.37. The patient has possible underlying chronic kidney disease. Her creatinine was 1.9 in February of last year, but she has never seen a calculating machine operator. The is there to give more history. The patient is more awake now as compared to when she was yesterday. She has been vomiting for the last three to four days at home before she came to the hospital, but since she came in here, her vomiting has stopped. Her confusion is better. The patient denies any abdominal pain. There is no history of diarrhea. No dysuria or hematuria, but she did have decreased urine output for the last two to three days. The patient has not been eating well at home and she started eating some now. She was also found to have a very high INR. She denies any history of fevers. PAST MEDICAL HISTORY 1. Hypertension 2. Diabetes mellitus 3. Hyperlipidemia 4. Hypothyroidism 5. Chronic kidney disease 5. Osteoarthritis 6. Restless leg syndrome 7. Anxiety depression 8. History of cerebrovascular accident. 9. History of lupus. PAST SURGICAL HISTORY 1. Loop recorder implantation 2. KAMERON 3. Cholecystectomy 4. Right oophorosalpingectomy 1996. REVIEW OF SYSTEMS The patient denies weakness, feeling tired. She has no history of fever. She is feeling weak and tired. She has nausea and vomiting which started three to four days ago associated with decreased appetite and also has decreased urine output. There is no history of dysuria or hematuria. She has been taking tramadol and Lortab at home and occasionally she takes Ibuprofen, but she has not taken it over the last three to four days according to the . She was also not taking warfarin in the last three days before coming to the hospital. SOCIAL HISTORY The patient is . There is no history of smoking or alcoholism. FAMILY HISTORY Father at 63 because of throat cancer. Mother at 55 because of cardiac complications. One sister had heart disease and hypertension. ALLERGIES She is allergic to PENICILLIN. MEDICATIONS Currently she is on the following medications: 1. IV fluid normal saline 100 an hour 2. Celexa 40 mg once a day 3. Aspirin 81 mg daily 4. MiraLax 17 grams daily 5. Pravachol 80 mg q.h.s. 6. Insulin aspart sliding scale 7. Gabapentin 800 mg t.i.d. 8. Zofran as needed 9. Narcan as needed 10. Clonidine as needed EXAMINATION On examination, the patient is awake and alert. She is not in acute distress. She is oriented to time, place and person. VITAL SIGNS: Her last blood pressure is 123/74, temperature 98.4. There is no documented hypotension. HEAD, EYES, EARS, NOSE, AND THROAT: Pupils equally reacting to light. Nonicteric sclera, conjunctiva pale. NECK: Supple. JVD is not elevated. LUNGS: The patient has bilateral decreased air entry with occasional wheezing. HEART: S1, S2 regular rhythm. ABDOMEN: Soft lax. There is no tenderness. Bowel sounds positive. EXTREMITIES: She has mild edema in the legs. INVESTIGATIONS WBC count is 11.9, hemoglobin 11.3, platelet count 199, neutrophils 82.8%, eosinophil 0%. Sodium 138, potassium 3.8, chloride 101, bicarb 23.3, BUN 88, creatinine 5.6, glucose 129, calcium 7.3, phosphorus is not done. Magnesium is 1.4, total protein is 5.9, lactic acid is 2.1, AST 53, ALT 54, alkaline phosphatase 105, total protein is 7.0, INR now is 1.1, it was 10.4 yesterday. Urinalysis showing protein of 30, leukocyte esterase small. Toxicology screen was negative. Urinalysis showing that she has protein of 30. IMAGING STUDIES The patient has CT scan of the brain done which shows that she has no acute process. Abdominal and pelvis CT was done yesterday which shows minimal consolidative changes in the right base suspicious of inflammatory process, left adrenal mass, probably adenoma. Both kidneys mentioned as unremarkable. Chest x-ray was done which shows no acute lung lesion. Ultrasound of the kidney was done which shows right kidney 11.9 and left is 11.3, decompressed bladder with Cardoso catheter. MRI of the brain was done. The results showing that there is no acute intracranial abnormality, old ischemic infarct changes and pansinusitis. ASSESSMENT 1. Acute kidney injury 2. Dehydration 3. Vomiting 4. Coumadin toxicity 5. Diabetes mellitus 6. Confusion and encephalopathy The patient has significant improvement in the creatinine. Her baseline creatinine seems to be at 1.9 and this was in February, so she possibly has some underlying chronic kidney disease possibly because of her diabetic or hypertensive renal disease and now there is an acute worsening most likely this is dehydration. I agree with continuing IV fluid and there is a significant improvement in the creatinine. There is no urgent need for dialysis. Once her creatinine is stable, she can start back on NICOLE inhibitor and I told the to avoid any nonsteroidal anti-inflammatory drugs. I will replace magnesium and check the phosphorus level. Thank you for the consultation. MD HARRISON Banda/DOROTHY /9:32 AM /1:05 PM
[2016-08-10] MEDS: LINEZOLID 600 MG PREMIX 300 ML IV SCH (13:30)
--- NOTE | 2016-08-10 13:46 | HHI.PR ---
Subjective Remarks Pt much more alert and oriented today and conversive. Pt has been afebrile BP is stable, home BP meds are on hold Renal function is improving with IVF. Objective Vitals Vital Signs Date Time Temp Pulse Resp B/P Pulse Ox O2 Delivery O2 Flow Rate FiO2 08/10/16 12:00 98.4 76 18 100/64 96 08/10/16 08:00 98.4 81 18 123/74 94 08/10/16 04:00 98.3 84 18 133/81 92 08/10/16 00:40 93 Nasal Cannula 2.00 08/10/16 00:00 98.2 86 18 130/80 92 08/09/16 20:00 97.8 92 18 152/73 93 08/09/16 20:00 88 08/09/16 18:22 99.1 85 20 169/90 96 08/09/16 16:00 98.3 90 18 148/79 98 Nasal Cannula 2 08/09/16 13:52 98.2 84 18 137/84 98 Room Air 08/09/16 08/09/16 08/10/16 15:00 23:00 07:00 Intake Total 240 ml 1023 ml Output Total 450 ml 650 ml Balance -210 ml 373 ml Intake Oral 240 ml 120 ml IV Total 903 ml Output Urine Total 450 ml 650 ml # Bowel Movements 0 0 Result Diagram: 08/10/16 0542 08/10/16 0542 Other Results Laboratory Tests Test 08/09/16 08/09/16 08/09/16 08/09/16 11:40 11:46 12:01 13:21 Sodium Level 134 MEQ/L Potassium Level 4.7 MEQ/L Chloride Level 92 MEQ/L Carbon Dioxide Level 20.6 MEQ/L Anion Gap 21 MEQ/L Blood Urea Nitrogen 104 MG/DL Creatinine 8.37 MG/DL Estimat Glomerular Filtration 5 ML/MIN Rate Random Glucose 138 MG/DL Lactic Acid Level 2.1 mmol/L Calcium Level 8.4 MG/DL Total Bilirubin 0.4 MG/DL Aspartate Amino Transf 53 U/L (AST/SGOT) Alanine Aminotransferase 54 U/L (ALT/SGPT) Alkaline Phosphatase 105 U/L Ammonia 27 MCMOL/L Total Creatine Kinase 113 U/L Total Protein 7.0 GM/DL Albumin 3.6 GM/DL Vitamin B12 Level 1343 PG/ML Folate 5.0 NG/ML Free Thyroxine 1.31 NG/DL Thyroid Stimulating Hormone 0.192 uIU/ML 3rd Gen Ethyl Alcohol Level LESS THAN 3 MG/DL White Blood Count 21.2 TH/MM3 Red Blood Count 4.53 MIL/MM3 Hemoglobin 12.5 GM/DL Hematocrit 37.0 % Mean Corpuscular Volume 81.7 FL Mean Corpuscular Hemoglobin 27.5 PG Mean Corpuscular Hemoglobin 33.7 % Concent Red Cell Distribution Width 15.2 % Platelet Count 321 TH/MM3 Mean Platelet Volume 9.5 FL Neutrophils (%) (Auto) 84.3 % Lymphocytes (%) (Auto) 7.4 % Monocytes (%) (Auto) 7.8 % Eosinophils (%) (Auto) 0.0 % Basophils (%) (Auto) 0.5 % Neutrophils # (Auto) 17.9 TH/MM3 Lymphocytes # (Auto) 1.6 TH/MM3 Monocytes # (Auto) 1.7 TH/MM3 Eosinophils # (Auto) 0.0 TH/MM3 Basophils # (Auto) 0.1 TH/MM3 CBC Comment AUTO DIFF Differential Comment AUTO DIFF CONFIRMED Platelet Estimate NORMAL Platelet Morphology Comment NORMAL Ovalocytes 1+ Prothrombin Time 127.2 SEC Prothromb Time International 10.4 RATIO Ratio Activated Partial 50.4 SEC Thromboplast Time Urine Color YELLOW Urine Turbidity HAZY Urine pH 5.5 Urine Specific Lapel 1.013 Urine Protein 30 mg/dL Urine Glucose (UA) NEG mg/dL Urine Ketones TRACE mg/dL Urine Occult Blood SMALL Urine Nitrite NEG Urine Bilirubin NEG Urine Urobilinogen LESS THAN 2.0 MG/DL Urine Leukocyte Esterase SMALL Urine RBC 4 /hpf Urine WBC 4 /hpf Urine Squamous Epithelial <1 /hpf Cells Urine Bacteria MOD /hpf Urine Hyaline Casts 4 /lpf Microscopic Urinalysis Comment CATH-CULTURE IND Urine Opiates Screen NEG Urine Barbiturates Screen NEG Urine Amphetamines Screen NEG Urine Benzodiazepines Screen NEG Urine Cocaine Screen NEG Urine Cannabinoids Screen NEG Blood Type A POSITIVE Antibody Screen NEGATIVE Test 08/09/16 08/09/16 08/10/16 15:25 18:47 05:42 Lactic Acid Level 2.1 mmol/L Prothrombin Time 19.0 SEC 12.5 SEC Prothromb Time International 1.7 RATIO 1.1 RATIO Ratio Lipase 49 U/L Rapid Plasma Reagin NON-REACTIVE White Blood Count 11.9 TH/MM3 Red Blood Count 4.08 MIL/MM3 Hemoglobin 11.3 GM/DL Hematocrit 34.1 % Mean Corpuscular Volume 83.5 FL Mean Corpuscular Hemoglobin 27.6 PG Mean Corpuscular Hemoglobin 33.1 % Concent Red Cell Distribution Width 15.1 % Platelet Count 199 TH/MM3 Mean Platelet Volume 8.5 FL Neutrophils (%) (Auto) 82.8 % Lymphocytes (%) (Auto) 7.8 % Monocytes (%) (Auto) 9.2 % Eosinophils (%) (Auto) 0.0 % Basophils (%) (Auto) 0.2 % Neutrophils # (Auto) 9.8 TH/MM3 Lymphocytes # (Auto) 0.9 TH/MM3 Monocytes # (Auto) 1.1 TH/MM3 Eosinophils # (Auto) 0.0 TH/MM3 Basophils # (Auto) 0.0 TH/MM3 CBC Comment DIFF FINAL Differential Comment Sodium Level 138 MEQ/L Potassium Level 3.8 MEQ/L Chloride Level 101 MEQ/L Carbon Dioxide Level 23.3 MEQ/L Anion Gap 14 MEQ/L Blood Urea Nitrogen 88 MG/DL Creatinine 5.62 MG/DL Estimat Glomerular Filtration 8 ML/MIN Rate Random Glucose 129 MG/DL Calcium Level 7.3 MG/DL Protein Corrected Calcium 7.9 MG/DL Magnesium Level 1.4 MG/DL Total Protein 5.9 GM/DL Imaging Last Impressions Head CT 08/09/16 1131 Signed Impressions: Service Date/Time: Tuesday, August 09, 2016 12:15 - CONCLUSION: Negative for an acute process. Rasheed Zhou MD FACR Chest X-Ray 08/09/16 1131 Signed Impressions: Service Date/Time: Tuesday, August 09, 2016 11:39 - CONCLUSION: 1. No acute cardiopulmonary disease. Thomsa López MD Renal Ultrasound 08/09/16 0000 Signed Impressions: Service Date/Time: Tuesday, August 09, 2016 23:19 - CONCLUSION: Normal examination. Bal Bass MD Carotid Artery Ultrasound 08/09/16 0000 Signed Impressions: Service Date/Time: Tuesday, August 09, 2016 23:02 - CONCLUSION: No evidence of flow-limiting carotid stenosis. Bal Bass MD Brain MRI 08/09/16 0000 Signed Impressions: Service Date/Time: Tuesday, August 09, 2016 19:55 - CONCLUSION: 1. No acute intracranial abnormality demonstrated. 2. Old ischemic/infarct changes and evidence of old parenchymal hemorrhage. Please see above. 3. Pansinusitis. Bal Watkins MD Abdomen/Pelvis CT 08/09/16 0000 Signed Impressions: Service Date/Time: Tuesday, August 09, 2016 13:28 - CONCLUSION: 1. Minimal consolidative changes in the right base, suspicious for an inflammatory process. 2. Left adrenal mass, probably adenoma. Rasheed Zhou MD FACR Objective Remarks General: NAD, AAOx3 Chest: CTA bilaterally Cardiac: Regular Abd: +BS, soft ND/NT : Cardoso cath in place Ext: No edema A/P Problem List: (1) Altered mental status Status: Acute Plan: - Pt admitted with altered mental status with elevated WBC count of 21,000, acute renal failure with creatinine greater than 8, and Coumadin toxicity with INR of 10 at admission. - Her AMS is likely secondary to acute renal failure. - Head CT in the ED was negative - CT Abd/pelvis (08/09/16) --> Minimal consolidative changes in the right base, suspicious for an inflammatory process. Left adrenal mass, probably adenoma. - Pt was given 3L of IVF in the ED - She was given a doze of Azactam and Gentamicin in the ER - She was given Vitamin K po and IV in the ER - MRI brain negative for any acute changes - UA was abnormal and Urine culture is pending. - Blood cultures drawn (08/09) with one out of four growing gram positive cocci. - Renal US was normal - Pt is on IVF with NS @ 100mL/hr - Her renal function has improved from Cr 8.37 --> 5.62 and the pts mentation has improved significantly. - Nephrology is following, no need for HD at this time. - Cont. IVF, encourage oral intake. - Pt has been started on Zyvox by ID and will follow her pending cultures. - Supportive care - DVT prophylaxis (2) Acute renal failure Status: Acute Plan: - Pt has acute on chronic renal failure, improving with IVF - See above. 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 - Monitor INR (4) Hypertension Status: Chronic Plan: - Home meds held - Clonidine PRN (5) Diabetes mellitus Status: Chronic Plan: - NovoLog SSI - Accu checks (6) Hyperlipidemia Status: Chronic Assessment and Plan Patient examined. Assessment and plan formulated with Louise Mccallum PA-C. I agree with the above. Problem Qualifiers (1) Hypertension: Qualified Code: I10 - Essential hypertension Louise Mccallum Aug 10, 2016 13:46 John Orellana DO Aug 19, 2016 22:36
[2016-08-10] MEDS: WARFARIN SOD 5 MG TAB PO SCH (16:15)
--- NOTE | 2016-08-10 16:17 | MB ---
cc: OLIVER CHAIREZ MD DATE OF CONSULTATION: 08/10/[address] Orellana. REASON FOR CONSULTATION: 1. Sepsis 2. UTI. 3. Pneumonia 4. Acute renal failure. HISTORY OF PRESENT ILLNESS This is a 55-year-old white female who has history of CVA and other multiple medical problems. The patient was brought to the hospital by noted that she was unresponsive at home. The patients reports that she was sick for about a week and had decreased p.o. intake for 3 days before admission, and she developed projectile vomiting 2 days prior to admission with pink to brown secretions but no blood. The patient was evaluated emergency department and was noted to be responding to questions inappropriately. She then was reportedly stopped responding to questions and stared blankly when attempts were made to get to verbally respond. Currently the patient is sitting up in the chair and the is at the bedside, she states that she feels tired. She is very forgetful and unable to remember details and I cannot really get much in the way of chronological information from her regarding this illness. The states that she would get around with a walker and then when she would travel long distances, he would put her in a wheelchair to get her around. He states that she did not appear to have any chills and she felt warm but is not noted to have fever. Since admission the patient has been afebrile. Her white blood cell count was elevated at 22.1 and she was noted to have acute renal failure with creatinine of 8.37. Blood cultures were taken on admission and one bottle has gram-positive cocci out of four. The urinalysis was significant for 4 white cells and small amount of leukocyte esterase. Urine culture is pending. The patient underwent CT scanning of the head which was negative. No acute process. CT scan of the abdomen and pelvis reveals minimal consolidative changes at the right base suspicious for inflammatory process. Left renal mass was noted. Chest x-ray Shows no acute cardiopulmonary disease. MRI of the brain revealed landon sinusitis. The patient notes some soreness in her throat. She was able to drink liquids today. She is very awake and alert. The patient's denies any recent treatment for infection lately. PAST MEDICAL HISTORY 1. Diabetes mellitus. 2. Hypothyroidism 3. Hypertension 4. Hyperlipidemia 5. Restless leg syndrome. 6. Osteoarthritis. 7. Anxiety/Depression. 8. Cerebrovascular accident secondary to patent foramen ovale. 9. Lupus. 10. Rotator cuff tear. 11. Cholecystectomy 12. Right oophorosalpingectomy 13. Loop recorder implantation. ALLERGIES PENICILLIN MEDICATIONS 1. Aspirin. 2. Celexa. 3. MiraLax. 4. Neurontin. 5. Zofran. 6. The patient received Gentamicin one dose on 08/09/2016. 7. The patient received one dose of aztreonam on 08/09/2016. SOCIAL HISTORY The patient is . No tobacco use. Occasional alcohol. Positive marijuana. FAMILY HISTORY Noncontributory. The patient's father of the throat and tongue cancer. The patient mother of cardiac complications. REVIEW OF SYSTEMS Pertinent mentioned in history of present illness. PHYSICAL EXAMINATION IN GENERAL: This is a slender female who is in no acute distress. She is awake and she appears alert. VITAL SIGNS: Temperature 98.4, Blood pressure 100/64, respirations 18, heart rate 76. HEAD, EYES, EARS, NOSE, AND THROAT: Head atraumatic. Extraocular movements grossly intact. Pupils reactive to light without icterus. Oropharynx no thrush. Dry mucosa. NECK: Supple without adenopathy or swelling. LUNGS: Clear breath sounds bilateral. HEART: Regular S1-S2. I did not hear any murmur. ABDOMEN: Bowel sounds present, soft, no tenderness. No masses palpable. RECTUM: Not performed. EXTREMITIES: No clubbing or cyanosis or edema. SKIN: No rash. NEUROLOGIC: The patient is awake and alert. PSYCHIATRIC: The patient is calm and cooperative. The patient has a Cardoso catheter in place with white sediment. LABORATORY DATA WBC 11.9, platelets 199, 82% neutrophils, 7% lymphocytes, hemoglobin 11.3, creatinine 5.62, BUN 88, sodium 138, AST 53, ALT 54, alk phos 105. IMPRESSION 1. Sepsis in patient with leukocytosis and acute renal failure and altered mental status on presentation. 2. Altered mental status improved. 3. Urinary tract infection suggested by urinalysis. 4. Acute renal failure 5. Pansinusitis on MRI review. RECOMMENDATIONS 1. Begin Zyvox 2. Monitor blood cultures 3. Monitor urine culture 4. Avoid nephrotoxic medication. 5. Monitor clinical status and adjust antibiotics depending on results of urine and blood cultures and continued clinical status. The patient clearly appears to have improved and hopefully she will continue on that course with improvement of her renal function which may also have contributed to her significant decline. Thank you this consultation. I will follow her progress with you and make further recommendations if necessary. Oliver Chairez MD FD/di /12:29 PM /3:59 PM JANE
[2016-08-10] MEDS: PRAVASTATIN SOD 80 MG TAB PO SCH (20:18)
[2016-08-11] VITALS (9 sets, daily range): BP systolic 118–140; BP diastolic 63–85; PULSE 74–84; RESP 18–20; TEMP 76–98.4; O2SAT 91–94
[2016-08-11] MEDS: SODIUM CHLOR 0.9% 1000 ML INJ 1,000 ML IV SCH ×2 (01:00→08:22)
[2016-08-11] MEDS: LINEZOLID 600 MG PREMIX 300 ML IV SCH ×2 (01:34→12:24)
[2016-08-11] MEDS: INSULIN ASPART SUPPLEMENTAL SCALE SQ SCH ×4 (05:52→21:00)
[2016-08-11] MEDS: ASPIRIN EC 81 MG TABEC PO SCH (08:19)
[2016-08-11] MEDS: GABAPENTIN 400 MG CAP PO SCH ×2 (08:19→12:23)
[2016-08-11] MEDS: SODIUM CHLORIDE 0.9% FLUSH 5 ML FLUSH FLUSH SCH ×2 (08:19→21:02)
[2016-08-11] MEDS: POLYETHYLENE GLYCOL 17 GM PKG PO SCH (08:19)
--- NOTE | 2016-08-11 08:54 | HHI.NPPN ---
Subjective History of Present Illness 55-year-old female with a past medical history of hypertension, history of diabetes mellitus, hyperlipidemia, history of a stroke, who came to the emergency department yesterday because of altered mental status. I was called to see the patient because of a very high BUN and creatinine. She has a BUN of 104 yesterday and creatinine of 8.37. The patient has possible underlying chronic kidney disease. Her creatinine was 1.9 in February of last year, but she has never seen a business system manager. Additional Remarks Patient is alert, her mental status is much better, not in distress. Review of Systems General Constitutional: Fatigue Cardiovascular Cardiac: MOLINA Objective Data Data 08/10/16 08/11/16 19:00 07:00 Intake Total 480 ml 480 ml Output Total 1800 ml 1425 ml Balance -1320 ml -945 ml Intake Oral 480 ml 480 ml Output Urine Total 1800 ml 1425 ml # Bowel Movements 0 0 Vital Signs Date Time Temp Pulse Resp B/P Pulse Ox O2 Delivery O2 Flow Rate FiO2 08/11/16 04:00 76.0 76 18 125/71 93 08/11/16 00:00 98.2 74 20 118/63 93 08/10/16 20:00 85 08/10/16 20:00 98.7 80 20 118/59 92 08/10/16 16:00 97.9 76 18 137/83 97 08/10/16 12:00 98.4 76 18 100/64 96 -: 08/10/16 0542 08/10/16 0542 Physical Exam General Appearance: No Acute Distress, Comfortable Eyes Eye Exam: Pupils Equal Throat Throat Exam: Oral Mucosa [place] & Moist Neck Neck Exam: Neck Supple Pulmonary Resp Exam: Breath Sounds Equal, No Distress, Decreased Bases, Diminished Breath Sounds Cardiology CV Exam: Regular, Normal Sinus Rhythm Gastrointestinal/Abdomen GI Exam: Soft, Non-Tender Genitourinary Exam: Clear Urine Extremeties Extremities Exam: No Edema Neurologic Neuro Exam: Alert, Awake, Oriented Psychiatric Psych Exam: Appropriate Responses Assessment/Plan Assessment Summary: JAMAL/Acute Renal Failure, Hypertension, CKD Stage III Electrolyte Assessment: Hypokalemia Problem List: (1) Anemia (2) Elevated INR (international normalized ratio) due to prior anticoagulant medication ingestion (3) Altered mental status (4) Hyperlipidemia (5) Diabetes mellitus (6) Hypertension (7) Coumadin toxicity (8) Acute renal failure Plan Patient has chronic kidney disease and develop JAMAL. Now Creatinine gradually improving. Has an element of JAMAL due to pre renal azotemia. Develop SOB, given one dose of Lasix. K was low and replaced. Her mental status improved. Continue same. If better possible D/C in AM. Edu Nicolas MD Aug 11, 2016 08:54
[2016-08-11 08:55] LABS: AUTOMATED NEUTROPHIL # 8.6 TH/MM3 (1.8-7.7); BASOPHIL % 0.1 % (0.0-2.0); EOSINOPHIL % 0.2 % (0.0-4.0); HEMATOCRIT 29.9 % (35.0-46.0); HEMO FLAGS DIFF FINAL; LYMPH % 11.9 % (9.0-44.0); LYMPHOCYTE # 1.3 TH/MM3 (1.0-4.8); MEAN CELL VOLUME 82.1 FL (80.0-100.0); MEAN CORPUSCULAR HEMOGLOBIN 27.8 PG (27.0-34.0); MEAN CORPUSCULAR HGB CONC 33.9 % (32.0-36.0); MONO % 6.3 % (0.0-8.0); NEUT % 81.5 % (16.0-70.0); PLATELET COUNT 162 TH/MM3 (150-450); RED BLOOD COUNT 3.64 MIL/MM3 (4.00-5.30); RED CELL DISTRIBUTION WIDTH 14.5 % (11.6-17.2); WHITE BLOOD COUNT 10.5 TH/MM3 (4.0-11.0)
[2016-08-11 09:02] LABS: PROTHROMBIN TIME - PATIENT 10.8 SEC (9.8-11.6)
[2016-08-11 09:28] LABS: BICARBONATE 25.3 MEQ/L (21.0-32.0); MAGNESIUM 1.4 MG/DL (1.5-2.5)
[2016-08-11] MEDS ORDERED: POTASSIUM CHLORIDE 20 MEQ CONTROLLED RELEASE TAB PO ONE (10:15)
[2016-08-11] MEDS ORDERED: RESP: ALBUTEROL 2.5 MG/IPRATROPIUM 0.5 MG NEB (PRN) NEB (10:45)
--- NOTE | 2016-08-11 10:57 | RADRPT ---
EXAM DATE/TIME: 08/11/2016 10:40 [facility] COMPARISON: CHEST SINGLE AP, August 09, 2016, 11:39. INDICATIONS : Congestion. MEDICAL HISTORY : Hypothyroidism. Hypercholesterolemia. Hernia, hiatal. CVA. Hyperlipidemia. HTN. Sleep apnea. Asthma. GERD. Ovarian cysts. Restless leg syndrome. Osteoarthritis. Type II Diabetes. Fatty liver. LUPUS. Sub stance use. Depression. Anxiety. SURGICAL HISTORY : Cholecystectomy. Tubal ligation. Right oophorectomy. ENCOUNTER: Subsequent ACUITY: 2 days PAIN SCORE: 2/10 LOCATION: Bilateral chest FINDINGS: Minimal bibasilar parenchymal changes are noted, increased in the interval. This is probably underae ration. The heart remains enlarged with normal primary vascularity. Cardiac event monitor is noted. CONCLUSION: Interval increase in bibasilar parenchymal changes. Rasheed Zhou MD FACR on August 11, 2016 at 10:54 Board Certified Radiologist. This report was verified electronically.
[2016-08-11] MEDS: MAGNESIUM SULFATE 1 GM PREMIX 100 ML IV SCH ×2 (12:00→12:24)
--- NOTE | 2016-08-11 13:50 | HHI.PR ---
Subjective Remarks Pt complains of increased cough last night and today Afebrile Pts reports that the pt got upset around 0300AM this morning and pulled out her IV and wanted to go home. Pt is anxious to go home. Objective Vitals Vital Signs Date Time Temp Pulse Resp B/P Pulse Ox O2 Delivery O2 Flow Rate FiO2 08/11/16 12:08 94 Nasal Cannula 2.00 08/11/16 08:00 97.9 84 20 134/85 91 08/11/16 04:00 76.0 76 18 125/71 93 08/11/16 00:00 98.2 74 20 118/63 93 08/10/16 20:00 85 08/10/16 20:00 98.7 80 20 118/59 92 08/10/16 16:00 97.9 76 18 137/83 97 08/10/16 08/10/16 08/11/16 15:00 23:00 07:00 Intake Total 480 ml 240 ml 240 ml Output Total 1800 ml 425 ml 1000 ml Balance -1320 ml -185 ml -760 ml Intake Oral 480 ml 240 ml 240 ml Output Urine Total 1800 ml 425 ml 1000 ml # Bowel Movements 0 0 0 Result Diagram: 08/11/16 0745 08/11/16 0745 Other Results Laboratory Tests Test 08/09/16 08/09/16 08/10/16 08/11/16 15:25 18:47 05:42 07:45 Lactic Acid Level 2.1 mmol/L Prothrombin Time 19.0 SEC 12.5 SEC 10.8 SEC Prothromb Time International 1.7 RATIO 1.1 RATIO 1.0 RATIO Ratio Lipase 49 U/L Rapid Plasma Reagin NON-REACTIVE White Blood Count 11.9 TH/MM3 10.5 TH/MM3 Red Blood Count 4.08 MIL/MM3 3.64 MIL/MM3 Hemoglobin 11.3 GM/DL 10.1 GM/DL Hematocrit 34.1 % 29.9 % Mean Corpuscular Volume 83.5 FL 82.1 FL Mean Corpuscular Hemoglobin 27.6 PG 27.8 PG Mean Corpuscular Hemoglobin 33.1 % 33.9 % Concent Red Cell Distribution Width 15.1 % 14.5 % Platelet Count 199 TH/MM3 162 TH/MM3 Mean Platelet Volume 8.5 FL 8.6 FL Neutrophils (%) (Auto) 82.8 % 81.5 % Lymphocytes (%) (Auto) 7.8 % 11.9 % Monocytes (%) (Auto) 9.2 % 6.3 % Eosinophils (%) (Auto) 0.0 % 0.2 % Basophils (%) (Auto) 0.2 % 0.1 % Neutrophils # (Auto) 9.8 TH/MM3 8.6 TH/MM3 Lymphocytes # (Auto) 0.9 TH/MM3 1.3 TH/MM3 Monocytes # (Auto) 1.1 TH/MM3 0.7 TH/MM3 Eosinophils # (Auto) 0.0 TH/MM3 0.0 TH/MM3 Basophils # (Auto) 0.0 TH/MM3 0.0 TH/MM3 CBC Comment DIFF FINAL DIFF FINAL Differential Comment Sodium Level 138 MEQ/L 135 MEQ/L Potassium Level 3.8 MEQ/L 3.0 MEQ/L Chloride Level 101 MEQ/L 100 MEQ/L Carbon Dioxide Level 23.3 MEQ/L 25.3 MEQ/L Anion Gap 14 MEQ/L 10 MEQ/L Blood Urea Nitrogen 88 MG/DL 55 MG/DL Creatinine 5.62 MG/DL 2.93 MG/DL Estimat Glomerular Filtration 8 ML/MIN 17 ML/MIN Rate Random Glucose 129 MG/DL 149 MG/DL Calcium Level 7.3 MG/DL 7.5 MG/DL Protein Corrected Calcium 7.9 MG/DL Magnesium Level 1.4 MG/DL 1.4 MG/DL Total Protein 5.9 GM/DL Phosphorus Level 1.8 MG/DL Imaging Last Impressions Chest X-Ray 08/11/16 0000 Signed Impressions: Service Date/Time: Thursday, August 11, 2016 10:40 - CONCLUSION: Interval increase in bibasilar parenchymal changes. Rasheed Zhou MD FACR Head CT 08/09/16 1131 Signed Impressions: Service Date/Time: Tuesday, August 09, 2016 12:15 - CONCLUSION: Negative for an acute process. Rasheed Zhou MD FACR Renal Ultrasound 08/09/16 0000 Signed Impressions: Service Date/Time: Tuesday, August 09, 2016 23:19 - CONCLUSION: Normal examination. Bal Bass MD Carotid Artery Ultrasound 08/09/16 0000 Signed Impressions: Service Date/Time: Tuesday, August 09, 2016 23:02 - CONCLUSION: No evidence of flow-limiting carotid stenosis. Bal Bass MD Brain MRI 08/09/16 0000 Signed Impressions: Service Date/Time: Tuesday, August 09, 2016 19:55 - CONCLUSION: 1. No acute intracranial abnormality demonstrated. 2. Old ischemic/infarct changes and evidence of old parenchymal hemorrhage. Please see above. 3. Pansinusitis. Bal Watkins MD Abdomen/Pelvis CT 08/09/16 0000 Signed Impressions: Service Date/Time: Tuesday, August 09, 2016 13:28 - CONCLUSION: 1. Minimal consolidative changes in the right base, suspicious for an inflammatory process. 2. Left adrenal mass, probably adenoma. Rasheed Zhou MD FACR Objective Remarks General: NAD, AAOx3 Chest: Coarse breath sounds bilaterally Cardiac: Regular Abd: +BS, soft ND/NT : Cardoso cath in place Ext: No edema A/P Problem List: (1) Altered mental status Status: Acute Plan: - Pt admitted with altered mental status with elevated WBC count of 21,000, acute renal failure with creatinine greater than 8, and Coumadin toxicity with INR of 10 at admission. - Her AMS is likely secondary to acute renal failure. - Head CT in the ED was negative - CT Abd/pelvis (08/09/16) --> Minimal consolidative changes in the right base, suspicious for an inflammatory process. Left adrenal mass, probably adenoma. - Pt was given 3L of IVF in the ED - She was given a doze of Azactam and Gentamicin in the ER - She was given Vitamin K po and IV in the ER - MRI brain negative for any acute changes - UA was abnormal and Urine culture is growing E. coli - Blood cultures drawn (08/09) with one out of four growing Staph aureus, sensitivities to follow - Renal US was normal - Pt had been on IVF with NS @ 100mL/hr - Her renal function has improved from Cr 8.37 (08/09) --> 5.62 (08/10) --> 2.93 ( 08/11) and the pts mentation has improved significantly. - Nephrology is following, no need for HD at this time. - Pt with increased cough and congestion today and CXR with findings of some possible volume overload. - Stop IVF, encourage oral intake - Case discussed with Nephrology and ok for one time dose of IV Lasix and repeat labs and CXR in AM. - Replace electrolytes - Pt has been started on Zyvox by ID and will follow her cultures. - Supportive care - DVT prophylaxis (2) Acute renal failure Status: Acute Plan: - Pt has acute on chronic renal failure, improving with IVF - See above. 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 Coumadin. - Monitor INR (4) Hypertension Status: Chronic Plan: - Home meds held - Clonidine PRN (5) Diabetes mellitus Status: Chronic Plan: - NovoLog SSI - Accu checks (6) Hyperlipidemia Status: Chronic Assessment and Plan Patient examined. Assessment and plan formulated with Louise Mccallum PA-C. I agree with the above. Problem Qualifiers (1) Hypertension: Qualified Code: I10 - Essential hypertension Louise Mccallum Aug 11, 2016 13:50 John Orellana DO Aug 19, 2016 22:36
[2016-08-11] MEDS ORDERED: FUROSEMIDE 40 MG/4 ML VIAL IV PUSH ONE (14:30)
[2016-08-11] MEDS: WARFARIN SOD 5 MG TAB PO SCH (16:00)
[2016-08-11] MEDS: LEVOFLOXACIN 250 MG TAB PO SCH (17:00)
--- NOTE | 2016-08-11 17:05 | HHI.IDPN ---
Note Infectious Disease Note Patient having coughing spells. Sounds congested but is not bringing up sputum. No distress. Awake and alert. Denies chest pain. Afebrile. Blood culture has Staph aureus. Urine culture has E. coli. The patient was brought to the hospital by who noted that she was unresponsive at home. PAST MEDICAL HISTORY 1. Diabetes mellitus. 2. Hypothyroidism 3. Hypertension 4. Hyperlipidemia 5. Restless leg syndrome. 6. Osteoarthritis. 7. Anxiety/Depression. 8. Cerebrovascular accident secondary to patent foramen ovale. 9. Lupus. 10. Rotator cuff tear. 11. Cholecystectomy 12. Right oophorosalpingectomy 13. Loop recorder implantation. ALLERGIES PENICILLIN MEDICATIONS Current Medications Medications (Trade) Dose Ordered Sig/Anabela Route PRN Reason Start Time Stop Time Status Last Admin Dose Admin IV Flush (NS Flush) 2 ml UNSCH PRN FLUSH FLUSH AFTER USING IV ACCESS 08/09/16 13:45 IV Flush (NS Flush) 2 ml BID FLUSH 08/09/16 21:00 08/11/16 08:19 Acetaminophen (Tylenol) 650 mg Q4H PRN PO TEMP > 100.4 08/09/16 13:45 Ondansetron HCl (Zofran Inj) 4 mg Q6H PRN IVP NAUSEA OR VOMITING 08/09/16 13:45 Magnesium Hydroxide (Milk Of Magnisai Liq) 30 ml Q12H PRN PO CONSTIPATION 08/09/16 13:45 Naloxone HCl (Narcan Inj) 0.4 mg UNSCH PRN IV SEE LABEL COMMENTS 08/09/16 13:45 Aspirin (Ecotrin Ec) 81 mg DAILY PO 08/10/16 09:00 08/11/16 08:19 Acetaminophen/ Hydrocodone Bitart ([place] 10-325 Mg) 1 tab Q4H PRN PO PAIN 1-10 08/09/16 14:00 Polyethylene Glycol (Miralax) 17 gm DAILY PO 08/10/16 09:00 08/11/16 08:19 Pravastatin Sodium (Pravachol) 80 mg HS PO 08/09/16 21:00 08/10/16 20:18 Clonidine 0.1 mg 0.1 mg Q6H PRN PO SBP> OR = 180, DBP> OR = 100 08/09/16 20:00 Linezolid (Zyvox 600 Mg Premix) 300 ml @ 300 mls/hr Q12H IV 08/10/16 13:30 08/11/16 12:24 Warfarin Sodium (Coumadin) 5 mg DAILY@1600 PO 08/10/16 16:15 08/10/16 16:15 Gabapentin (Neurontin) 600 mg DAILY PO 08/12/16 09:00 SOCIAL HISTORY The patient is . No tobacco use. Occasional alcohol. Positive marijuana. FAMILY HISTORY Noncontributory. The patient's father of the throat and tongue cancer. The patient mother of cardiac complications. OBJECTIVE: Vital Signs Date Time Temp Pulse Resp B/P Pulse Ox O2 Delivery O2 Flow Rate FiO2 08/11/16 16:20 94 Nasal Cannula 2.00 08/11/16 12:08 94 Nasal Cannula 2.00 08/11/16 08:00 97.9 84 20 134/85 91 08/11/16 04:00 76.0 76 18 125/71 93 08/11/16 00:00 98.2 74 20 118/63 93 08/10/16 20:00 85 08/10/16 20:00 98.7 80 20 118/59 92 08/10/16 08/10/16 08/11/16 15:00 23:00 07:00 Intake Total 480 ml 240 ml 240 ml Output Total 1800 ml 425 ml 1000 ml Balance -1320 ml -185 ml -760 ml Intake Oral 480 ml 240 ml 240 ml Output Urine Total 1800 ml 425 ml 1000 ml # Bowel Movements 0 0 0 Laboratory Tests Test 08/10/16 08/11/16 05:42 07:45 White Blood Count 11.9 TH/MM3 10.5 TH/MM3 Red Blood Count 4.08 MIL/MM3 3.64 MIL/MM3 Hemoglobin 11.3 GM/DL 10.1 GM/DL Hematocrit 34.1 % 29.9 % Mean Corpuscular Volume 83.5 FL 82.1 FL Mean Corpuscular Hemoglobin 27.6 PG 27.8 PG Mean Corpuscular Hemoglobin 33.1 % 33.9 % Concent Red Cell Distribution Width 15.1 % 14.5 % Platelet Count 199 TH/MM3 162 TH/MM3 Mean Platelet Volume 8.5 FL 8.6 FL Neutrophils (%) (Auto) 82.8 % 81.5 % Lymphocytes (%) (Auto) 7.8 % 11.9 % Monocytes (%) (Auto) 9.2 % 6.3 % Eosinophils (%) (Auto) 0.0 % 0.2 % Basophils (%) (Auto) 0.2 % 0.1 % Neutrophils # (Auto) 9.8 TH/MM3 8.6 TH/MM3 Lymphocytes # (Auto) 0.9 TH/MM3 1.3 TH/MM3 Monocytes # (Auto) 1.1 TH/MM3 0.7 TH/MM3 Eosinophils # (Auto) 0.0 TH/MM3 0.0 TH/MM3 Basophils # (Auto) 0.0 TH/MM3 0.0 TH/MM3 CBC Comment DIFF FINAL DIFF FINAL Differential Comment Laboratory Tests Test 08/09/16 08/10/16 08/11/16 18:47 05:42 07:45 Lipase 49 U/L Sodium Level 138 MEQ/L 135 MEQ/L Potassium Level 3.8 MEQ/L 3.0 MEQ/L Chloride Level 101 MEQ/L 100 MEQ/L Carbon Dioxide Level 23.3 MEQ/L 25.3 MEQ/L Anion Gap 14 MEQ/L 10 MEQ/L Blood Urea Nitrogen 88 MG/DL 55 MG/DL Creatinine 5.62 MG/DL 2.93 MG/DL Estimat Glomerular Filtration 8 ML/MIN 17 ML/MIN Rate Random Glucose 129 MG/DL 149 MG/DL Calcium Level 7.3 MG/DL 7.5 MG/DL Protein Corrected Calcium 7.9 MG/DL Magnesium Level 1.4 MG/DL 1.4 MG/DL Total Protein 5.9 GM/DL Phosphorus Level 1.8 MG/DL Microbiology Date/Time Procedure Status Source Growth 08/09/16 11:41 Aerobic Blood Culture - Preliminary Resulted Blood Peripheral NO GROWTH IN 2 DAYS 08/09/16 11:41 Anaerobic Blood Culture - Preliminary Resulted Blood Peripheral NO GROWTH IN 2 DAYS 08/09/16 11:46 Aerobic Blood Culture - Preliminary Resulted Blood Peripheral NO GROWTH IN 2 DAYS 08/09/16 11:46 Anaerobic Blood Culture - Preliminary Resulted Staphylococcus Aureus 08/09/16 12:01 Urine Culture - Final Complete Urine Catheterized Urine Escherichia Coli IMAGING: Chest X-Ray 08/11/16 0000 Signed Impressions: Service Date/Time: Thursday, August 11, 2016 10:40 - CONCLUSION: Interval increase in bibasilar parenchymal changes. Rasheed Zhou MD FACR Head CT 08/09/16 1131 Signed Impressions: Service Date/Time: Tuesday, August 09, 2016 12:15 - CONCLUSION: Negative for an acute process. Rasheed Zhou MD FACR Renal Ultrasound 08/09/16 0000 Signed Impressions: Service Date/Time: Tuesday, August 09, 2016 23:19 - CONCLUSION: Normal examination. Bal Bass MD Carotid Artery Ultrasound 08/09/16 0000 Signed Impressions: Service Date/Time: Tuesday, August 09, 2016 23:02 - CONCLUSION: No evidence of flow-limiting carotid stenosis. Bal Bass MD Brain MRI 08/09/16 0000 Signed Impressions: Service Date/Time: Tuesday, August 09, 2016 19:55 - CONCLUSION: 1. No acute intracranial abnormality demonstrated. 2. Old ischemic/infarct changes and evidence of old parenchymal hemorrhage. Please see above. 3. Pansinusitis. Bal Watkins MD Abdomen/Pelvis CT 08/09/16 0000 Signed Impressions: Service Date/Time: Tuesday, August 09, 2016 13:28 - CONCLUSION: 1. Minimal consolidative changes in the right base, suspicious for an inflammatory process. 2. Left adrenal mass, probably adenoma. Rasheed Zhou MD FACR PHYSICAL EXAMINATION GENERAL: No acute distress. She is awake and she appears alert. Coughing. HEAD, EYES, EARS, NOSE, AND THROAT: Head atraumatic. Extraocular movements grossly intact. Pupils reactive to light without icterus. Oropharynx no thrush. Dry mucosa. NECK: Supple without adenopathy or swelling. LUNGS: Basilar rhonchi. HEART: Regular S1-S2. No audible murmur. ABDOMEN: Bowel sounds present, soft, no tenderness. No masses palpable. EXTREMITIES: No clubbing or cyanosis or edema. SKIN: No rash. NEUROLOGIC: The patient is awake and alert. PSYCHIATRIC: The patient is calm and cooperative. The patient has a Cardoso catheter in place with white sediment. IMPRESSION 1. Sepsis in patient with leukocytosis and acute renal failure and altered mental status on presentation. MSSA. 2. Altered mental status improved. 3. Urinary tract infection. E. coli. 4. Acute renal failure improving. 5. Pansinusitis on MRI review. 6. Cough and congestion. ? early CHF vs PNA. RECOMMENDATIONS 1. Continue Zyvox 2. Add Levaquin for UTI. 3. Repeat Blood culture. 4. Avoid nephrotoxic medication. 5. Monitor clinical status. Graeme Vega MD Aug 11, 2016 17:05
[2016-08-11] MEDS: ACETAMINOPHEN/HYDROcodone 325 MG/10 MG TAB PO PRN (18:35)
[2016-08-11] MEDS: PRAVASTATIN SOD 80 MG TAB PO SCH (21:02)
[2016-08-12] VITALS (10 sets, daily range): BP systolic 115–148; BP diastolic 60–87; PULSE 75–85; RESP 17–20; TEMP 97.8–98.2; O2SAT 90–98
[2016-08-12] MEDS: LINEZOLID 600 MG PREMIX 300 ML IV SCH ×2 (02:10→13:33)
[2016-08-12] MEDS: INSULIN ASPART SUPPLEMENTAL SCALE SQ SCH ×4 (05:40→20:28)
[2016-08-12 06:16] LABS: AUTOMATED NEUTROPHIL # 9.8 TH/MM3 (1.8-7.7); BASOPHIL % 0.1 % (0.0-2.0); EOSINOPHIL # 0.1 TH/MM3 (0-0.4); EOSINOPHIL % 0.9 % (0.0-4.0); HEMATOCRIT 30.8 % (35.0-46.0); HEMO FLAGS DIFF FINAL; LYMPH % 14.3 % (9.0-44.0); LYMPHOCYTE # 1.8 TH/MM3 (1.0-4.8); MEAN CELL VOLUME 82.7 FL (80.0-100.0); MEAN CORPUSCULAR HEMOGLOBIN 27.6 PG (27.0-34.0); MEAN CORPUSCULAR HGB CONC 33.4 % (32.0-36.0); MONO % 6.1 % (0.0-8.0); NEUT % 78.6 % (16.0-70.0); PLATELET COUNT 184 TH/MM3 (150-450); RED BLOOD COUNT 3.72 MIL/MM3 (4.00-5.30); RED CELL DISTRIBUTION WIDTH 14.5 % (11.6-17.2); WHITE BLOOD COUNT 12.5 TH/MM3 (4.0-11.0)
[2016-08-12 06:48] LABS: BICARBONATE 28.1 MEQ/L (21.0-32.0); MAGNESIUM 1.6 MG/DL (1.5-2.5); POTASSIUM 3.2 MEQ/L (3.5-5.1)
--- NOTE | 2016-08-12 08:42 | RADRPT ---
EXAM DATE/TIME: 08/12/2016 08:18 [facility] COMPARISON: CHEST SINGLE AP, August 09, 2016, 11:39. CHEST SINGLE AP, August 11, 2016, 10:40. INDICATIONS : CHF. MEDICAL HISTORY : Hypothyroidism. Hypercholesterolemia. Hernia, hiatal. CVA. Hyperlipidemia. HTN. Sleep apnea. Asthma. GERD. Ovarian cysts. Restless leg syndrome. Osteoarthritis. Type II Diabetes. Fatty liver. LUPUS. Sub stance use. Depression. Anxiety. SURGICAL HISTORY : Cholecystectomy. Tubal ligation. Right oophorectomy. ENCOUNTER: Subsequent ACUITY: 4 - 6 days PAIN SCORE: 0/10 LOCATION: chest FINDINGS: PA and lateral views of the chest demonstrate bibasilar infiltrates, right greater than left. The inf iltrates are stable compared to the prior exam. No new infiltrates are seen. The heart size is stable . No pleural effusions. The bony structures are stable. CONCLUSION: Bibasilar infiltrates, right greater than left. No significant change. Julius Garcia MD on August 12, 2016 at 8:37 Board Certified Radiologist. This report was verified electronically.
[2016-08-12] MEDS: GABAPENTIN 300 MG CAP PO SCH (08:43)
[2016-08-12] MEDS: POLYETHYLENE GLYCOL 17 GM PKG PO SCH (08:43)
[2016-08-12] MEDS: ASPIRIN EC 81 MG TABEC PO SCH (08:43)
[2016-08-12] MEDS: SODIUM CHLORIDE 0.9% FLUSH 5 ML FLUSH FLUSH SCH ×2 (08:43→20:29)
[2016-08-12] MEDS: ACETAMINOPHEN/HYDROcodone 325 MG/10 MG TAB PO PRN (11:40)
[2016-08-12] MEDS ORDERED: POTASSIUM CHLORIDE 20 MEQ CONTROLLED RELEASE TAB PO ONE (12:00)
[2016-08-12] MEDS ORDERED: RESP: ALBUTEROL 2.5 MG/IPRATROPIUM 0.5 MG NEB (PRN) NEB (12:15)
[2016-08-12] MEDS ORDERED: POTASSIUM CHLORIDE 10 MEQ CONTROLLED RELEASE TAB PO ONE (12:15)
--- NOTE | 2016-08-12 12:29 | HHI.PR ---
Subjective Remarks Pt complains of continued cough and congestion which kept her up last night. Afebrile Pt had good UOP last night. Pt has Cardoso cath in place. Objective Vitals Vital Signs Date Time Temp Pulse Resp B/P Pulse Ox O2 Delivery O2 Flow Rate FiO2 08/12/16 10:11 98 21 08/12/16 10:11 93 21 08/12/16 08:00 98.2 83 20 148/87 90 08/12/16 04:00 98.0 82 17 134/86 92 08/12/16 00:09 75 08/12/16 00:00 98.1 77 18 115/60 92 08/11/16 20:00 97.5 80 18 133/84 94 08/11/16 16:20 94 Nasal Cannula 2.00 08/11/16 16:00 98.4 80 20 133/75 93 08/11/16 08/11/16 08/12/16 15:00 23:00 07:00 Intake Total 600 ml 480 ml 240 ml Output Total 1300 ml 900 ml 1400 ml Balance -700 ml -420 ml -1160 ml Intake Oral 600 ml 480 ml 240 ml Output Urine Total 1300 ml 900 ml 1400 ml # Voids 2 # Bowel Movements 0 0 0 Result Diagram: 08/12/16 0520 08/12/16 0520 Other Results Laboratory Tests Test 08/11/16 08/12/16 07:45 05:20 White Blood Count 10.5 TH/MM3 12.5 TH/MM3 Red Blood Count 3.64 MIL/MM3 3.72 MIL/MM3 Hemoglobin 10.1 GM/DL 10.3 GM/DL Hematocrit 29.9 % 30.8 % Mean Corpuscular Volume 82.1 FL 82.7 FL Mean Corpuscular Hemoglobin 27.8 PG 27.6 PG Mean Corpuscular Hemoglobin 33.9 % 33.4 % Concent Red Cell Distribution Width 14.5 % 14.5 % Platelet Count 162 TH/MM3 184 TH/MM3 Mean Platelet Volume 8.6 FL 8.4 FL Neutrophils (%) (Auto) 81.5 % 78.6 % Lymphocytes (%) (Auto) 11.9 % 14.3 % Monocytes (%) (Auto) 6.3 % 6.1 % Eosinophils (%) (Auto) 0.2 % 0.9 % Basophils (%) (Auto) 0.1 % 0.1 % Neutrophils # (Auto) 8.6 TH/MM3 9.8 TH/MM3 Lymphocytes # (Auto) 1.3 TH/MM3 1.8 TH/MM3 Monocytes # (Auto) 0.7 TH/MM3 0.8 TH/MM3 Eosinophils # (Auto) 0.0 TH/MM3 0.1 TH/MM3 Basophils # (Auto) 0.0 TH/MM3 0.0 TH/MM3 CBC Comment DIFF FINAL DIFF FINAL Differential Comment Prothrombin Time 10.8 SEC 11.0 SEC Prothromb Time International 1.0 RATIO 1.0 RATIO Ratio Sodium Level 135 MEQ/L 132 MEQ/L Potassium Level 3.0 MEQ/L 3.2 MEQ/L Chloride Level 100 MEQ/L 94 MEQ/L Carbon Dioxide Level 25.3 MEQ/L 28.1 MEQ/L Anion Gap 10 MEQ/L 10 MEQ/L Blood Urea Nitrogen 55 MG/DL 40 MG/DL Creatinine 2.93 MG/DL 2.09 MG/DL Estimat Glomerular Filtration 17 ML/MIN 24 ML/MIN Rate Random Glucose 149 MG/DL 91 MG/DL Calcium Level 7.5 MG/DL 8.0 MG/DL Phosphorus Level 1.8 MG/DL Magnesium Level 1.4 MG/DL 1.6 MG/DL Imaging Last Impressions Chest X-Ray 08/12/16 0800 Signed Impressions: Service Date/Time: July 08:18 - CONCLUSION: Bibasilar infiltrates, right greater than left. No significant change. Julius Garcia MD Head CT 08/09/16 1131 Signed Impressions: Service Date/Time: Tuesday, August 09, 2016 12:15 - CONCLUSION: Negative for an acute process. Rasheed Zhou MD FACR Renal Ultrasound 08/09/16 0000 Signed Impressions: Service Date/Time: Tuesday, August 09, 2016 23:19 - CONCLUSION: Normal examination. Bal Bass MD Carotid Artery Ultrasound 08/09/16 0000 Signed Impressions: Service Date/Time: Tuesday, August 09, 2016 23:02 - CONCLUSION: No evidence of flow-limiting carotid stenosis. Bal Bass MD Brain MRI 08/09/16 0000 Signed Impressions: Service Date/Time: Tuesday, August 09, 2016 19:55 - CONCLUSION: 1. No acute intracranial abnormality demonstrated. 2. Old ischemic/infarct changes and evidence of old parenchymal hemorrhage. Please see above. 3. Pansinusitis. Bal Watkins MD Abdomen/Pelvis CT 08/09/16 0000 Signed Impressions: Service Date/Time: Tuesday, August 09, 2016 13:28 - CONCLUSION: 1. Minimal consolidative changes in the right base, suspicious for an inflammatory process. 2. Left adrenal mass, probably adenoma. Rasheed Zhou MD FACR Last Impressions Chest X-Ray 08/11/16 0000 Signed Impressions: Service Date/Time: Thursday, August 11, 2016 10:40 - CONCLUSION: Interval increase in bibasilar parenchymal changes. Rasheed Zhou MD FACR Head CT 08/09/16 1131 Signed Impressions: Service Date/Time: Tuesday, August 09, 2016 12:15 - CONCLUSION: Negative for an acute process. Rasheed Zhou MD FACR Renal Ultrasound 08/09/16 0000 Signed Impressions: Service Date/Time: Tuesday, August 09, 2016 23:19 - CONCLUSION: Normal examination. Bal Bass MD Carotid Artery Ultrasound 08/09/16 0000 Signed Impressions: Service Date/Time: Tuesday, August 09, 2016 23:02 - CONCLUSION: No evidence of flow-limiting carotid stenosis. Bal Bass MD Brain MRI 08/09/16 0000 Signed Impressions: Service Date/Time: Tuesday, August 09, 2016 19:55 - CONCLUSION: 1. No acute intracranial abnormality demonstrated. 2. Old ischemic/infarct changes and evidence of old parenchymal hemorrhage. Please see above. 3. Pansinusitis. Bal Watkins MD Abdomen/Pelvis CT 08/09/16 0000 Signed Impressions: Service Date/Time: Tuesday, August 09, 2016 13:28 - CONCLUSION: 1. Minimal consolidative changes in the right base, suspicious for an inflammatory process. 2. Left adrenal mass, probably adenoma. Rasheed Zhou MD FACR Objective Remarks General: NAD, AAOx3 Chest: Coarse breath sounds bilaterally Cardiac: Regular Abd: +BS, soft ND/NT : Cardoso cath in place Ext: No edema A/P Problem List: (1) Altered mental status Status: Acute Plan: - Pt admitted with altered mental status with elevated WBC count of 21,000, acute renal failure with creatinine greater than 8, and Coumadin toxicity with INR of 10 at admission. - Her AMS is likely secondary to acute renal failure. - Head CT in the ED was negative - CT Abd/pelvis (08/09/16) --> Minimal consolidative changes in the right base, suspicious for an inflammatory process. Left adrenal mass, probably adenoma. - Pt was given 3L of IVF in the ED - She was given a doze of Azactam and Gentamicin in the ER - She was given Vitamin K po and IV in the ER - MRI brain negative for any acute changes - UA was abnormal and Urine culture is growing E. coli - Blood cultures drawn (08/09) with one out of four growing MSSA - Pt is on Zyvox by ID (started 08/10) and Levaquin (started 08/11). - Renal US was normal - Pt had been on IVF with NS @ 100mL/hr - Her renal function has improved from Cr 8.37 (08/09) --> 5.62 (08/10) --> 2.93 ( 08/11) --> 2.09 (08/12) and the pts mentation has improved significantly. - Nephrology is following, no need for HD at this time. - Pt with increased cough and congestion on 08/11 and CXR with findings of some possible volume overload. - IVF stopped on 08/11 encourage oral intake - Pt given one time dose of Lasix 40mg IV with good UOP and is off supplemental O2 but still with a significant cough and congestion. Pt with similar symptoms. - CXR (08/12) --> Bibasilar infiltrates, right greater than left. No significant change. - Start Duonebs/Mucinex/Robitussin - Replace electrolytes - Supportive care - DVT prophylaxis (2) Acute renal failure Status: Acute Plan: - Pt has acute on chronic renal failure, improving, almost to baseline - See above. 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 Coumadin. - Monitor INR (4) Hypertension Status: Chronic Plan: - Home meds held - Clonidine PRN (5) Diabetes mellitus Status: Chronic Plan: - NovoLog SSI - Accu checks - Pts wants her to be changed back to her home dose of Metformin but renal function/GRF is still too impaired to resume this per pharmacy. (6) Hyperlipidemia Status: Chronic Assessment and Plan Patient examined. Assessment and plan formulated with Louise Mccallum PA-C. I agree with the above. Problem Qualifiers (1) Hypertension: Qualified Code: I10 - Essential hypertension Louise Mccallum Aug 12, 2016 12:29 John Orellana DO Aug 19, 2016 22:37
--- NOTE | 2016-08-12 12:47 | HHI.NPPN ---
Subjective History of Present Illness 55-year-old female with a past medical history of hypertension, history of diabetes mellitus, hyperlipidemia, history of a stroke, who came to the emergency department yesterday because of altered mental status. I was called to see the patient because of a very high BUN and creatinine. She has a BUN of 104 yesterday and creatinine of 8.37. The patient has possible underlying chronic kidney disease. Her creatinine was 1.9 in February of last year, but she has never seen a tearoom hostess. Additional Remarks Patient is alert, now eating better, has mild abd. discomfort, no nausea. Review of Systems General Constitutional: Fatigue Cardiovascular Cardiac: MOLINA Objective Data Data 08/11/16 08/12/16 19:00 07:00 Intake Total 600 ml 720 ml Output Total 1300 ml 2300 ml Balance -700 ml -1580 ml Intake Oral 600 ml 720 ml Output Urine Total 1300 ml 2300 ml # Voids 2 # Bowel Movements 0 0 Vital Signs Date Time Temp Pulse Resp B/P Pulse Ox O2 Delivery O2 Flow Rate FiO2 08/12/16 10:11 98 21 08/12/16 10:11 93 21 08/12/16 08:00 98.2 83 20 148/87 90 08/12/16 04:00 98.0 82 17 134/86 92 08/12/16 00:09 75 08/12/16 00:00 98.1 77 18 115/60 92 08/11/16 20:00 97.5 80 18 133/84 94 08/11/16 16:20 94 Nasal Cannula 2.00 08/11/16 16:00 98.4 80 20 133/75 93 -: 08/12/16 0520 08/12/16 0520 Microbiology 08/11/16 Aerobic Blood Culture - Preliminary, Resulted NO GROWTH IN 1 DAY 08/11/16 Anaerobic Blood Culture - Preliminary, Resulted NO GROWTH IN 1 DAY 08/11/16 Aerobic Blood Culture - Preliminary, Resulted NO GROWTH IN 1 DAY 08/11/16 Anaerobic Blood Culture - Preliminary, Resulted NO GROWTH IN 1 DAY Physical Exam General Appearance: No Acute Distress, Comfortable Eyes Eye Exam: Pupils Equal Throat Throat Exam: Oral Mucosa [place] & Moist Neck Neck Exam: Neck Supple Pulmonary Resp Exam: Breath Sounds Equal, No Distress, Decreased Bases, Diminished Breath Sounds Cardiology CV Exam: Regular, Normal Sinus Rhythm Gastrointestinal/Abdomen GI Exam: Soft, Non-Tender Genitourinary Exam: Clear Urine Extremeties Extremities Exam: No Edema Neurologic Neuro Exam: Alert, Awake, Oriented Psychiatric Psych Exam: Appropriate Responses Assessment/Plan Assessment Summary: JAMAL/Acute Renal Failure, Hypertension, CKD Stage III Electrolyte Assessment: Hypokalemia Problem List: (1) Anemia (2) Elevated INR (international normalized ratio) due to prior anticoagulant medication ingestion (3) Altered mental status (4) Hyperlipidemia (5) Diabetes mellitus (6) Hypertension (7) Coumadin toxicity (8) Acute renal failure Plan Patient has chronic kidney disease and develop JAMAL. Now Creatinine gradually improving. Has an element of JAMAL due to pre renal azotemia. Develop SOB, given one dose of Lasix. K was low and replaced. Creatinine is getting close to her baseline. Encourage oral intake. Breathing is better. Problem Qualifiers (1) Hypertension: Qualified Code: I10 - Essential hypertension Edu Nicolas MD Aug 12, 2016 12:47
[2016-08-12] MEDS ORDERED: guaiFENesin SOLUTION 200 MG/10 ML CUP PO PRN (13:00)
[2016-08-12] MEDS: guaiFENesin E.R. 600 MG TAB PO SCH ×2 (13:33→20:28)
--- NOTE | 2016-08-12 13:33 | HHI.FF ---
Face to Face Verification Diagnosis: (1) Altered mental status (2) Acute renal failure (3) Elevated INR (international normalized ratio) due to prior anticoagulant medication ingestion (4) Hypertension (5) Diabetes mellitus (6) Hyperlipidemia (7) Hypothyroid (8) Anxiety Physical Therapy Order: Evaluate and Treat, Strength and gait training Home Health Nursing Order: Medical education Nursing assessment with vital signs Instructions: Pt to received lovenox 30mg SubQ daily until INR is above 2 Pt to have daily INR & fax results to pt's PCP, Dr. Leonardo Lee. Stop daily INR once pt has completed 5 day course of antibiotics I have seen patient Jennie Velasquez on 08/12/16. My clinical findings support the need for the requested home health care services because: Ltd mobility - disease progression Deconditioned w/ increased weakness Med compliance is questionable Need for psychosocial assistance I certify that my clinical findings support that this patient is homebound because: Impaired cognitive ability/safety Unsafe to leave home unassisted Need for psychosocial assistance Unable to use public transportation Louise Mccallum Aug 12, 2016 13:33 John Orellana DO Aug 14, 2016 21:28
[2016-08-12] MEDS: RESP: ALBUTEROL 2.5 MG/IPRATROPIUM 0.5 MG NEB (SCH) NEB ×2 (15:33→20:54)
[2016-08-12] MEDS: WARFARIN SOD 5 MG TAB PO SCH (16:03)
--- NOTE | 2016-08-12 16:50 | HHI.IDPN ---
Note Infectious Disease Note Patient feels better. No complaints. No distress. Awake and alert. Denies chest pain. Afebrile. Repeat blood culture pending. Urine culture has E. coli. The patient was brought to the hospital by who noted that she was unresponsive at home. PAST MEDICAL HISTORY 1. Diabetes mellitus. 2. Hypothyroidism 3. Hypertension 4. Hyperlipidemia 5. Restless leg syndrome. 6. Osteoarthritis. 7. Anxiety/Depression. 8. Cerebrovascular accident secondary to patent foramen ovale. 9. Lupus. 10. Rotator cuff tear. 11. Cholecystectomy 12. Right oophorosalpingectomy 13. Loop recorder implantation. ALLERGIES PENICILLIN MEDICATIONS Current Medications Medications (Trade) Dose Ordered Sig/Anabela Route PRN Reason Start Time Stop Time Status Last Admin Dose Admin IV Flush (NS Flush) 2 ml UNSCH PRN FLUSH FLUSH AFTER USING IV ACCESS 08/09/16 13:45 IV Flush (NS Flush) 2 ml BID FLUSH 08/09/16 21:00 08/12/16 08:43 Acetaminophen (Tylenol) 650 mg Q4H PRN PO TEMP > 100.4 08/09/16 13:45 Ondansetron HCl (Zofran Inj) 4 mg Q6H PRN IVP NAUSEA OR VOMITING 08/09/16 13:45 Magnesium Hydroxide (Milk Of Magnesia Liq) 30 ml Q12H PRN PO CONSTIPATION 08/09/16 13:45 Naloxone HCl (Narcan Inj) 0.4 mg UNSCH PRN IV SEE LABEL COMMENTS 08/09/16 13:45 Aspirin (Ecotrin Ec) 81 mg DAILY PO 08/10/16 09:00 08/12/16 08:43 Acetaminophen/ Hydrocodone Bitart ([place] 10-325 Mg) 1 tab Q4H PRN PO PAIN 1-10 08/09/16 14:00 08/12/16 11:40 Polyethylene Glycol (Miralax) 17 gm DAILY PO 08/10/16 09:00 08/12/16 08:43 Pravastatin Sodium (Pravachol) 80 mg HS PO 08/09/16 21:00 08/11/16 21:02 Clonidine 0.1 mg 0.1 mg Q6H PRN PO SBP> OR = 180, DBP> OR = 100 08/09/16 20:00 Linezolid (Zyvox 600 Mg Premix) 300 ml @ 300 mls/hr Q12H IV 08/10/16 13:30 08/12/16 13:33 Warfarin Sodium (Coumadin) 5 mg DAILY@1600 PO 08/10/16 16:15 08/12/16 16:03 Gabapentin (Neurontin) 600 mg DAILY PO 08/12/16 09:00 08/12/16 08:43 Levofloxacin (Levaquin) 250 mg Q48H PO 08/11/16 17:00 08/11/16 17:00 Guaifenesin (Mucinex Er) 600 mg BID PO 08/12/16 13:00 08/12/16 13:33 Guaifenesin (Robitussin Liq) 200 mg Q4H PRN PO cough 08/12/16 13:00 SOCIAL HISTORY The patient is . No tobacco use. Occasional alcohol. Positive marijuana. FAMILY HISTORY Noncontributory. The patient's father of the throat and tongue cancer. The patient mother of cardiac complications. OBJECTIVE: Vital Signs Date Time Temp Pulse Resp B/P Pulse Ox O2 Delivery O2 Flow Rate FiO2 08/12/16 10:11 98 21 08/12/16 10:11 93 21 08/12/16 08:00 98.2 83 20 148/87 90 08/12/16 04:00 98.0 82 17 134/86 92 08/12/16 00:09 75 08/12/16 00:00 98.1 77 18 115/60 92 08/11/16 20:00 97.5 80 18 133/84 94 08/11/16 08/11/16 08/12/16 15:00 23:00 07:00 Intake Total 600 ml 480 ml 240 ml Output Total 1300 ml 900 ml 1400 ml Balance -700 ml -420 ml -1160 ml Intake Oral 600 ml 480 ml 240 ml Output Urine Total 1300 ml 900 ml 1400 ml # Voids 2 # Bowel Movements 0 0 0 Laboratory Tests Test 08/11/16 08/12/16 07:45 05:20 White Blood Count 10.5 TH/MM3 12.5 TH/MM3 Red Blood Count 3.64 MIL/MM3 3.72 MIL/MM3 Hemoglobin 10.1 GM/DL 10.3 GM/DL Hematocrit 29.9 % 30.8 % Mean Corpuscular Volume 82.1 FL 82.7 FL Mean Corpuscular Hemoglobin 27.8 PG 27.6 PG Mean Corpuscular Hemoglobin 33.9 % 33.4 % Concent Red Cell Distribution Width 14.5 % 14.5 % Platelet Count 162 TH/MM3 184 TH/MM3 Mean Platelet Volume 8.6 FL 8.4 FL Neutrophils (%) (Auto) 81.5 % 78.6 % Lymphocytes (%) (Auto) 11.9 % 14.3 % Monocytes (%) (Auto) 6.3 % 6.1 % Eosinophils (%) (Auto) 0.2 % 0.9 % Basophils (%) (Auto) 0.1 % 0.1 % Neutrophils # (Auto) 8.6 TH/MM3 9.8 TH/MM3 Lymphocytes # (Auto) 1.3 TH/MM3 1.8 TH/MM3 Monocytes # (Auto) 0.7 TH/MM3 0.8 TH/MM3 Eosinophils # (Auto) 0.0 TH/MM3 0.1 TH/MM3 Basophils # (Auto) 0.0 TH/MM3 0.0 TH/MM3 CBC Comment DIFF FINAL DIFF FINAL Differential Comment Laboratory Tests Test 08/11/16 08/12/16 07:45 05:20 Sodium Level 135 MEQ/L 132 MEQ/L Potassium Level 3.0 MEQ/L 3.2 MEQ/L Chloride Level 100 MEQ/L 94 MEQ/L Carbon Dioxide Level 25.3 MEQ/L 28.1 MEQ/L Anion Gap 10 MEQ/L 10 MEQ/L Blood Urea Nitrogen 55 MG/DL 40 MG/DL Creatinine 2.93 MG/DL 2.09 MG/DL Estimat Glomerular Filtration 17 ML/MIN 24 ML/MIN Rate Random Glucose 149 MG/DL 91 MG/DL Calcium Level 7.5 MG/DL 8.0 MG/DL Phosphorus Level 1.8 MG/DL Magnesium Level 1.4 MG/DL 1.6 MG/DL Microbiology Date/Time Procedure Status Source Growth 08/11/16 19:18 Aerobic Blood Culture - Preliminary Resulted Blood Peripheral NO GROWTH IN 1 DAY 08/11/16 19:18 Anaerobic Blood Culture - Preliminary Resulted Blood Peripheral NO GROWTH IN 1 DAY 08/11/16 19:25 Aerobic Blood Culture - Preliminary Resulted Blood Peripheral NO GROWTH IN 1 DAY 08/11/16 19:25 Anaerobic Blood Culture - Preliminary Resulted Blood Peripheral NO GROWTH IN 1 DAY Microbiology Date/Time Procedure Status Source Growth 08/09/16 11:41 Aerobic Blood Culture - Preliminary Resulted Blood Peripheral NO GROWTH IN 2 DAYS 08/09/16 11:41 Anaerobic Blood Culture - Preliminary Resulted Blood Peripheral NO GROWTH IN 2 DAYS 08/09/16 11:46 Aerobic Blood Culture - Preliminary Resulted Blood Peripheral NO GROWTH IN 2 DAYS 08/09/16 11:46 Anaerobic Blood Culture - Preliminary Resulted Staphylococcus Aureus 08/09/16 12:01 Urine Culture - Final Complete Urine Catheterized Urine Escherichia Coli IMAGING: Chest X-Ray 08/12/16 0800 Signed Impressions: Service Date/Time: July 08:18 - CONCLUSION: Bibasilar infiltrates, right greater than left. No significant change. Julius Garcia MD Chest X-Ray 08/11/16 0000 Signed Impressions: Service Date/Time: Thursday, August 11, 2016 10:40 - CONCLUSION: Interval increase in bibasilar parenchymal changes. Rasheed Zhou MD FACR Chest X-Ray 08/11/16 0000 Signed Impressions: Service Date/Time: Thursday, August 11, 2016 10:40 - CONCLUSION: Interval increase in bibasilar parenchymal changes. Rasheed Zhou MD FACR Head CT 08/09/16 1131 Signed Impressions: Service Date/Time: Tuesday, August 09, 2016 12:15 - CONCLUSION: Negative for an acute process. Rasheed Zhou MD FACR Renal Ultrasound 08/09/16 0000 Signed Impressions: Service Date/Time: Tuesday, August 09, 2016 23:19 - CONCLUSION: Normal examination. Bal Bass MD Carotid Artery Ultrasound 08/09/16 0000 Signed Impressions: Service Date/Time: Tuesday, August 09, 2016 23:02 - CONCLUSION: No evidence of flow-limiting carotid stenosis. Bal Bass MD Brain MRI 08/09/16 0000 Signed Impressions: Service Date/Time: Tuesday, August 09, 2016 19:55 - CONCLUSION: 1. No acute intracranial abnormality demonstrated. 2. Old ischemic/infarct changes and evidence of old parenchymal hemorrhage. Please see above. 3. Pansinusitis. Bal Watkins MD Abdomen/Pelvis CT 08/09/16 0000 Signed Impressions: Service Date/Time: Tuesday, August 09, 2016 13:28 - CONCLUSION: 1. Minimal consolidative changes in the right base, suspicious for an inflammatory process. 2. Left adrenal mass, probably adenoma. Rasheed Zhou MD FACR PHYSICAL EXAMINATION GENERAL: No acute distress. She is awake and alert. HEAD, EYES, EARS, NOSE, AND THROAT: Head atraumatic. Extraocular movements grossly intact. Pupils reactive to light without icterus. Oropharynx no thrush. Dry mucosa. NECK: Supple without adenopathy or swelling. LUNGS: Basilar rhonchi. HEART: Regular S1-S2. No audible murmur. ABDOMEN: Bowel sounds present, soft, no tenderness. No masses palpable. EXTREMITIES: No clubbing or cyanosis or edema. SKIN: No rash. NEUROLOGIC: The patient is awake and alert. PSYCHIATRIC: Calm and cooperative. The patient has a Cardoso catheter in place with white sediment. IMPRESSION 1. Sepsis in patient with leukocytosis and acute renal failure and altered mental status on presentation. MSSA. 2. Altered mental status improved. 3. Urinary tract infection. E. coli. 4. Acute renal failure improving. 5. Pansinusitis on MRI review. 6. Cough and congestion. ? early CHF vs PNA. RECOMMENDATIONS 1. Continue Zyvox 2. Continue Levaquin for UTI. 3. Monitor repeat Blood culture. 4. Avoid nephrotoxic medication. 5. Monitor clinical status. I explained to her in the presence of her that she needs to stay in the hospital until the blood culture is back in 2 days on Tuesday. She is agreeable. If the blood culture is negative the zyvox can be switched to PO for another 5 days. The Levaquin can be continued also for 5 days also since she has lung infiltrates in addition to UTI and sinusitis on MRI. Can give lactinex while on these antibiotics if there is concern for development of c. diff. Graeme Vega MD Aug 12, 2016 16:50
[2016-08-12] MEDS ORDERED: metFORMIN HCL 500 MG TAB PO SCH (18:00)
[2016-08-12] MEDS: PRAVASTATIN SOD 80 MG TAB PO SCH (20:28)
[2016-08-12] MEDS ORDERED: LORazepam 2 MG/ML VIAL IV SCH (22:30)
[2016-08-13] VITALS (7 sets, daily range): BP systolic 130–149; BP diastolic 75–87; PULSE 84–94; RESP 17–20; TEMP 98.3–98.6; O2SAT 91–97
[2016-08-13] MEDS: LINEZOLID 600 MG PREMIX 300 ML IV SCH ×2 (01:30→12:47)
[2016-08-13] MEDS: INSULIN ASPART SUPPLEMENTAL SCALE SQ SCH ×4 (06:43→21:00)
[2016-08-13 06:56] LABS: PROTHROMBIN TIME - PATIENT 11.6 SEC (9.8-11.6)
[2016-08-13 07:03] LABS: AUTOMATED NEUTROPHIL # 9.6 TH/MM3 (1.8-7.7); BASOPHIL % 0.1 % (0.0-2.0); EOSINOPHIL # 0.2 TH/MM3 (0-0.4); EOSINOPHIL % 1.4 % (0.0-4.0); HEMATOCRIT 30.3 % (35.0-46.0); HEMO FLAGS DIFF FINAL; LYMPH % 16.5 % (9.0-44.0); LYMPHOCYTE # 2.1 TH/MM3 (1.0-4.8); MEAN CELL VOLUME 82.9 FL (80.0-100.0); MEAN CORPUSCULAR HEMOGLOBIN 27.9 PG (27.0-34.0); MEAN CORPUSCULAR HGB CONC 33.6 % (32.0-36.0); MONO % 7.5 % (0.0-8.0); NEUT % 74.5 % (16.0-70.0); PLATELET COUNT 193 TH/MM3 (150-450); RED BLOOD COUNT 3.66 MIL/MM3 (4.00-5.30); RED CELL DISTRIBUTION WIDTH 14.4 % (11.6-17.2); WHITE BLOOD COUNT 12.9 TH/MM3 (4.0-11.0)
[2016-08-13 07:16] LABS: BICARBONATE 27.3 MEQ/L (21.0-32.0); MAGNESIUM 1.5 MG/DL (1.5-2.5); POTASSIUM 4.1 MEQ/L (3.5-5.1)
[2016-08-13] MEDS: RESP: ALBUTEROL 2.5 MG/IPRATROPIUM 0.5 MG NEB (SCH) NEB ×4 (07:56→20:00)
[2016-08-13] MEDS: POLYETHYLENE GLYCOL 17 GM PKG PO SCH (08:50)
[2016-08-13] MEDS: GABAPENTIN 300 MG CAP PO SCH (08:51)
[2016-08-13] MEDS: guaiFENesin E.R. 600 MG TAB PO SCH ×2 (08:51→20:21)
[2016-08-13] MEDS: ASPIRIN EC 81 MG TABEC PO SCH (08:52)
[2016-08-13] MEDS: SODIUM CHLORIDE 0.9% FLUSH 5 ML FLUSH FLUSH SCH ×2 (08:52→20:26)
[2016-08-13] MEDS: ACETAMINOPHEN/HYDROcodone 325 MG/10 MG TAB PO PRN ×2 (08:52→20:24)
--- NOTE | 2016-08-13 12:41 | HHI.NPPN ---
Subjective History of Present Illness 55-year-old female with a past medical history of hypertension, history of diabetes mellitus, hyperlipidemia, history of a stroke, who came to the emergency department yesterday because of altered mental status. I was called to see the patient because of a very high BUN and creatinine. She has a BUN of 104 yesterday and creatinine of 8.37. The patient has possible underlying chronic kidney disease. Her creatinine was 1.9 in February of last year, but she has never seen a sand cutter. Additional Remarks Patient is alert, now eating better, no SOB, no abd. pain. Review of Systems General Constitutional: Fatigue Cardiovascular Cardiac: MOLINA Objective Data Data 08/12/16 08/13/16 19:00 07:00 Intake Total 360 ml 340 ml Output Total 900 ml 600 ml Balance -540 ml -260 ml Intake Oral 360 ml 340 ml Output Urine Total 900 ml 600 ml # Bowel Movements 0 0 Vital Signs Date Time Temp Pulse Resp B/P Pulse Ox O2 Delivery O2 Flow Rate FiO2 08/13/16 12:00 98.4 94 18 136/75 93 08/13/16 08:19 98.5 85 18 149/87 91 08/13/16 04:00 98.3 84 18 144/86 91 08/12/16 20:55 94 21 08/12/16 20:10 Nasal Cannula 2.00 08/12/16 20:00 97.8 85 17 123/71 93 08/12/16 20:00 79 08/12/16 16:00 97.9 81 20 136/85 92 -: 08/13/16 0604 08/13/16 0604 Physical Exam General Appearance: No Acute Distress, Comfortable Eyes Eye Exam: Pupils Equal Throat Throat Exam: Oral Mucosa Lemay & Moist Neck Neck Exam: Neck Supple Pulmonary Resp Exam: Breath Sounds Equal, No Distress, Decreased Bases, Diminished Breath Sounds Cardiology CV Exam: Regular, Normal Sinus Rhythm Gastrointestinal/Abdomen GI Exam: Soft, Non-Tender Genitourinary Exam: Clear Urine Extremeties Extremities Exam: No Edema Neurologic Neuro Exam: Alert, Awake, Oriented Psychiatric Psych Exam: Appropriate Responses Assessment/Plan Assessment Summary: JAMAL/Acute Renal Failure, Hypertension, CKD Stage III Electrolyte Assessment: Hypokalemia Problem List: (1) Anemia (2) Elevated INR (international normalized ratio) due to prior anticoagulant medication ingestion (3) Altered mental status (4) Hyperlipidemia (5) Diabetes mellitus (6) Hypertension (7) Coumadin toxicity (8) Acute renal failure Plan Patient has chronic kidney disease and develop JAMAL. Now Creatinine gradually improving. Has an element of JAMAL due to pre renal azotemia. Develop SOB, given one dose of Lasix. K was low and replaced. Creatinine is now 1.8. Can be discharged from Nephrology. Follow up with me in 4 weeks. Problem Qualifiers (1) Hypertension: Qualified Code: I10 - Essential hypertension Edu Nicoals MD Aug 13, 2016 12:41
[2016-08-13] MEDS: LEVOFLOXACIN 250 MG TAB PO SCH (15:42)
[2016-08-13] MEDS: WARFARIN SOD 5 MG TAB PO SCH (15:42)
--- NOTE | 2016-08-13 19:01 | HHI.PR ---
Subjective Remarks No new complaints. Objective Vitals Vital Signs Date Time Temp Pulse Resp B/P Pulse Ox O2 Delivery O2 Flow Rate FiO2 08/13/16 16:02 98.5 85 17 130/77 94 08/13/16 12:00 98.4 94 18 136/75 93 08/13/16 08:29 91 08/13/16 08:19 98.5 85 18 149/87 91 08/13/16 04:00 98.3 84 18 144/86 91 08/12/16 20:55 94 21 08/12/16 20:10 Nasal Cannula 2.00 08/12/16 20:00 97.8 85 17 123/71 93 08/12/16 20:00 79 08/12/16 08/12/16 08/13/16 15:00 23:00 07:00 Intake Total 360 ml 240 ml 100 ml Output Total 900 ml 0 ml 600 ml Balance -540 ml 240 ml -500 ml Intake Oral 360 ml 240 ml 100 ml Output Urine Total 900 ml 0 ml 600 ml # Bowel Movements 0 0 0 Result Diagram: 08/13/16 0604 08/13/16 0604 Other Results Laboratory Tests Test 08/12/16 08/13/16 05:20 06:04 White Blood Count 12.5 TH/MM3 12.9 TH/MM3 Red Blood Count 3.72 MIL/MM3 3.66 MIL/MM3 Hemoglobin 10.3 GM/DL 10.2 GM/DL Hematocrit 30.8 % 30.3 % Mean Corpuscular Volume 82.7 FL 82.9 FL Mean Corpuscular Hemoglobin 27.6 PG 27.9 PG Mean Corpuscular Hemoglobin 33.4 % 33.6 % Concent Red Cell Distribution Width 14.5 % 14.4 % Platelet Count 184 TH/MM3 193 TH/MM3 Mean Platelet Volume 8.4 FL 8.5 FL Neutrophils (%) (Auto) 78.6 % 74.5 % Lymphocytes (%) (Auto) 14.3 % 16.5 % Monocytes (%) (Auto) 6.1 % 7.5 % Eosinophils (%) (Auto) 0.9 % 1.4 % Basophils (%) (Auto) 0.1 % 0.1 % Neutrophils # (Auto) 9.8 TH/MM3 9.6 TH/MM3 Lymphocytes # (Auto) 1.8 TH/MM3 2.1 TH/MM3 Monocytes # (Auto) 0.8 TH/MM3 1.0 TH/MM3 Eosinophils # (Auto) 0.1 TH/MM3 0.2 TH/MM3 Basophils # (Auto) 0.0 TH/MM3 0.0 TH/MM3 CBC Comment DIFF FINAL DIFF FINAL Differential Comment Prothrombin Time 11.0 SEC 11.6 SEC Prothromb Time International 1.0 RATIO 1.0 RATIO Ratio Sodium Level 132 MEQ/L 134 MEQ/L Potassium Level 3.2 MEQ/L 4.1 MEQ/L Chloride Level 94 MEQ/L 99 MEQ/L Carbon Dioxide Level 28.1 MEQ/L 27.3 MEQ/L Anion Gap 10 MEQ/L 8 MEQ/L Blood Urea Nitrogen 40 MG/DL 32 MG/DL Creatinine 2.09 MG/DL 1.80 MG/DL Estimat Glomerular Filtration 24 ML/MIN 29 ML/MIN Rate Random Glucose 91 MG/DL 78 MG/DL Calcium Level 8.0 MG/DL 8.0 MG/DL Magnesium Level 1.6 MG/DL 1.5 MG/DL Imaging Last Impressions Chest X-Ray 08/12/16 0800 Signed Impressions: Service Date/Time: July 08:18 - CONCLUSION: Bibasilar infiltrates, right greater than left. No significant change. Julius Garcia MD Head CT 08/09/16 1131 Signed Impressions: Service Date/Time: Tuesday, August 09, 2016 12:15 - CONCLUSION: Negative for an acute process. Rasheed Zhou MD FACR Renal Ultrasound 08/09/16 0000 Signed Impressions: Service Date/Time: Tuesday, August 09, 2016 23:19 - CONCLUSION: Normal examination. Bal Bass MD Carotid Artery Ultrasound 08/09/16 0000 Signed Impressions: Service Date/Time: Tuesday, August 09, 2016 23:02 - CONCLUSION: No evidence of flow-limiting carotid stenosis. Bal Bass MD Brain MRI 08/09/16 0000 Signed Impressions: Service Date/Time: Tuesday, August 09, 2016 19:55 - CONCLUSION: 1. No acute intracranial abnormality demonstrated. 2. Old ischemic/infarct changes and evidence of old parenchymal hemorrhage. Please see above. 3. Pansinusitis. Bal Watkins MD Abdomen/Pelvis CT 08/09/16 0000 Signed Impressions: Service Date/Time: Tuesday, August 09, 2016 13:28 - CONCLUSION: 1. Minimal consolidative changes in the right base, suspicious for an inflammatory process. 2. Left adrenal mass, probably adenoma. Rasheed Zhou MD FACR Last Impressions Chest X-Ray 08/11/16 0000 Signed Impressions: Service Date/Time: Thursday, August 11, 2016 10:40 - CONCLUSION: Interval increase in bibasilar parenchymal changes. Rasheed Zhou MD FACR Head CT 08/09/16 1131 Signed Impressions: Service Date/Time: Tuesday, August 09, 2016 12:15 - CONCLUSION: Negative for an acute process. Rasheed Zhou MD FACR Renal Ultrasound 08/09/16 0000 Signed Impressions: Service Date/Time: Tuesday, August 09, 2016 23:19 - CONCLUSION: Normal examination. Bal Bass MD Carotid Artery Ultrasound 08/09/16 0000 Signed Impressions: Service Date/Time: Tuesday, August 09, 2016 23:02 - CONCLUSION: No evidence of flow-limiting carotid stenosis. Bal Bass MD Brain MRI 08/09/16 0000 Signed Impressions: Service Date/Time: Tuesday, August 09, 2016 19:55 - CONCLUSION: 1. No acute intracranial abnormality demonstrated. 2. Old ischemic/infarct changes and evidence of old parenchymal hemorrhage. Please see above. 3. Pansinusitis. Bal Watkins MD Abdomen/Pelvis CT 08/09/16 0000 Signed Impressions: Service Date/Time: Tuesday, August 09, 2016 13:28 - CONCLUSION: 1. Minimal consolidative changes in the right base, suspicious for an inflammatory process. 2. Left adrenal mass, probably adenoma. Rasheed Zhou MD FACR Objective Remarks General: NAD, AAOx3 Chest: Coarse breath sounds bilaterally Cardiac: Regular Abd: +BS, soft ND/NT : Cardoso cath in place Ext: No edema A/P Problem List: (1) Altered mental status Status: Acute Plan: - Pt admitted with altered mental status with elevated WBC count of 21,000, acute renal failure with creatinine greater than 8, and Coumadin toxicity with INR of 10 at admission. - Her AMS is likely secondary to acute renal failure. - Head CT in the ED was negative - CT Abd/pelvis (08/09/16) --> Minimal consolidative changes in the right base, suspicious for an inflammatory process. Left adrenal mass, probably adenoma. - Pt was given 3L of IVF in the ED - She was given a doze of Azactam and Gentamicin in the ER - She was given Vitamin K po and IV in the ER - MRI brain negative for any acute changes - UA was abnormal and Urine culture is growing E. coli - Blood cultures drawn (08/09) with one out of four growing MSSA - Pt is on Zyvox by ID (started 08/10) and Levaquin (started 08/11). - Renal US was normal - Pt had been on IVF with NS @ 100mL/hr - Her renal function has improved from Cr 8.37 (08/09) --> 5.62 (08/10) --> 2.93 ( 08/11) --> 2.09 (08/12) --> 1.80 (08/13) and the pts mentation has improved significantly. - Nephrology is following, no need for HD at this time. - Pt with increased cough and congestion on 08/11 and CXR with findings of some possible volume overload. - IVF stopped on 08/11 encourage oral intake - Pt given one time dose of Lasix 40mg IV with good UOP and is off supplemental O2 but still with a significant cough and congestion. Pt with similar symptoms. - CXR (08/12) --> Bibasilar infiltrates, right greater than left. No significant change. - Duonebs/Mucinex/Robitussin started on 08/13 - ID has recommended that the pt stay in the hospital until the blood culture is back in 2 days on Tuesday. She is agreeable. - If the blood culture is negative ID recommending the Zyvox can be switched to PO for another 5 days. - The Levaquin can be continued also for 5 days also since she has lung infiltrates in addition to UTI and sinusitis on MRI. - Supportive care - DVT prophylaxis (2) Acute renal failure Status: Acute Plan: - Pt has acute on chronic renal failure, improving, almost to baseline - See above. (3) Coumadin toxicity Status: Acute Plan: - Pt is on Coumadin for hx of embolic CVA thought to possible be secondary to PFO - INR was 10 at admission - Pt was given po and IV Vitamin K and INR still subtherapeutic at 1.0 today - Cont. Coumadin. - Lovenox 30mg daily - Monitor INR (4) Hypertension Status: Chronic Plan: - Home meds held - Clonidine PRN (5) Diabetes mellitus Status: Chronic Plan: - NovoLog SSI - Accu checks - Resume Metformin in AM (6) Hyperlipidemia Status: Chronic Assessment and Plan Patient examined. Assessment and plan formulated with Louise Mccallum PA-C. I agree with the above. Problem Qualifiers (1) Hypertension: Qualified Code: I10 - Essential hypertension Louise Mccallum Aug 13, 2016 19:01 John Orellana DO Aug 19, 2016 22:37
[2016-08-13] MEDS: PRAVASTATIN SOD 80 MG TAB PO SCH (20:21)
[2016-08-13] MEDS: ENOXAPARIN SODIUM 30 MG/0.3 ML SYRINGE SQ SCH (20:24)
[2016-08-14] VITALS (7 sets, daily range): BP systolic 102–190; BP diastolic 66–92; PULSE 75–93; RESP 12–18; TEMP 98.2–98.7; O2SAT 93–99
[2016-08-14] MEDS: LINEZOLID 600 MG PREMIX 300 ML IV SCH ×2 (01:30→13:38)
[2016-08-14] MEDS: INSULIN ASPART SUPPLEMENTAL SCALE SQ SCH ×4 (05:52→20:24)
[2016-08-14 07:25] LABS: AUTOMATED NEUTROPHIL # 6.1 TH/MM3 (1.8-7.7); BASOPHIL % 0.2 % (0.0-2.0); EOSINOPHIL # 0.3 TH/MM3 (0-0.4); EOSINOPHIL % 2.8 % (0.0-4.0); HEMATOCRIT 27.8 % (35.0-46.0); HEMO FLAGS DIFF FINAL; LYMPH % 22.6 % (9.0-44.0); LYMPHOCYTE # 2.1 TH/MM3 (1.0-4.8); MEAN CELL VOLUME 83.1 FL (80.0-100.0); MEAN CORPUSCULAR HEMOGLOBIN 28.3 PG (27.0-34.0); MEAN CORPUSCULAR HGB CONC 34.1 % (32.0-36.0); MONO % 9.7 % (0.0-8.0); NEUT % 64.7 % (16.0-70.0); PLATELET COUNT 208 TH/MM3 (150-450); RED BLOOD COUNT 3.35 MIL/MM3 (4.00-5.30); RED CELL DISTRIBUTION WIDTH 14.3 % (11.6-17.2); WHITE BLOOD COUNT 9.4 TH/MM3 (4.0-11.0)
[2016-08-14 07:28] LABS: INTERNATIONAL NORMALIZED RATIO 1.2 RATIO; PROTHROMBIN TIME - PATIENT 13.5 SEC (9.8-11.6)
[2016-08-14 07:47] LABS: BICARBONATE 28.8 MEQ/L (21.0-32.0); MAGNESIUM 1.5 MG/DL (1.5-2.5); POTASSIUM 4.4 MEQ/L (3.5-5.1)
[2016-08-14] MEDS: ASPIRIN EC 81 MG TABEC PO SCH (08:14)
[2016-08-14] MEDS: GABAPENTIN 300 MG CAP PO SCH (08:14)
[2016-08-14] MEDS: guaiFENesin E.R. 600 MG TAB PO SCH ×2 (08:15→20:22)
[2016-08-14] MEDS: POLYETHYLENE GLYCOL 17 GM PKG PO SCH (08:16)
[2016-08-14] MEDS: SODIUM CHLORIDE 0.9% FLUSH 5 ML FLUSH FLUSH SCH ×2 (08:17→20:23)
[2016-08-14] MEDS ORDERED: metFORMIN HCL 500 MG TAB PO SCH (09:00)
[2016-08-14] MEDS: RESP: ALBUTEROL 2.5 MG/IPRATROPIUM 0.5 MG NEB (SCH) NEB ×4 (09:14→19:57)
[2016-08-14] MEDS: WARFARIN SOD 5 MG TAB PO SCH (15:54)
[2016-08-14] MEDS: ENOXAPARIN SODIUM 30 MG/0.3 ML SYRINGE SQ SCH (20:22)
[2016-08-14] MEDS: PRAVASTATIN SOD 80 MG TAB PO SCH (20:24)
[2016-08-14] MEDS: ACETAMINOPHEN/HYDROcodone 325 MG/10 MG TAB PO PRN (20:34)
[2016-08-14] MEDS ORDERED: CITA40TA4 PO (21:08)
[2016-08-14] MEDS ORDERED: ALBU0.08 NEB (21:08)
[2016-08-14] MEDS ORDERED: ZYVO600T PO (21:08)
[2016-08-14] MEDS ORDERED: ENOX30P SQ (21:08)
[2016-08-14] MEDS ORDERED: LEVA250T PO (21:08)
[2016-08-14] MEDS ORDERED: IPRA0.02 NEB (21:08)
--- NOTE | 2016-08-14 21:10 | HHI.DCPOC ---
Discharge Care Plan Diagnosis: (1) Sepsis due to urinary tract infection (2) Acute renal failure (3) DM type 2 (diabetes mellitus, type 2) (4) Depression (5) History of CVA (cerebrovascular accident) Goals to Promote Your Health * To prevent worsening of your condition and complications * To maintain your health at the optimal level Directions to Meet Your Goals Take your medications as prescribed Follow your dietary instruction Follow activity as directed Keep your appointments as scheduled Take your immunizations and boosters as scheduled If your symptoms worsen call your PCP, if no PCP go to Urgent Care Center or Emergency Room Smoking is Dangerous to Your Health. Avoid second hand smoke Call the 24-hour hour crisis hotline for domestic abuse at John Orellana DO Aug 14, 2016 21:10
--- NOTE | 2016-08-14 21:27 | HHI.DS ---
Discharge Summary Admission Date Aug 09, 2016 at 13:59 Discharge Date: Aug 15, 2016 Admitting Diagnosis Sepsis/Renal Insufficientcy/Elevated INR/Guiac Pos. (1) Altered mental status Diagnosis: Principal (2) Acute renal failure Diagnosis: Principal (3) Coumadin toxicity Diagnosis: Principal (4) Hypertension Diagnosis: Secondary (5) Diabetes mellitus Diagnosis: Secondary (6) Hyperlipidemia Diagnosis: Secondary Consultants Dr. Americo Nicolas, Nephrology Dr. Rene Zheng, Infectious Disease Brief History Mrs. Velasquez is a 55 y/o WF with diabetes, reportedly history of stroke, HTN , and hyperlipidemia who was brought into the ED on 08/09/16 via EMS with change in mental status. Per the ER notes the pt appeared somewhat delirious at initial presentation, but was responding to questions and commands appropriately. There was some question of neurological symptoms suggestive of stroke. Patients reported that for the last week the pt has had vomiting 2-3 times per day and very little po intake. He states that the emesis was dark colored but no red blood. Pt had some loose stools but denies any diarrhea. In the ED pt was noted to have an elevated WBC count of 21.2 and acute renal failure with Cr 8.37. Her INR was significantly elevated at 10.4. She was given a dose of Vitamin K po and IV in the ER. Pt was given 3L of IVF in the ER at well. Pts states that while she was in the ER the pt was responding to questions although somewhat inappropriately. Since arriving to the medical floor she has stopped responding to questions and just stares blankly when you speak to her. She will turn when you say her name but does not follow commands. Pts also noted that she had been having some coughing recently but no reported fevers or chills at home. CBC/BMP: 08/14/16 0611 08/14/16 0611 Significant Findings Laboratory Tests Test 08/12/16 08/13/16 08/14/16 05:20 06:04 06:11 White Blood Count 12.5 TH/MM3 12.9 TH/MM3 (4.0-11.0) (4.0-11.0) Red Blood Count 3.72 MIL/MM3 3.66 MIL/MM3 3.35 MIL/MM3 (4.00-5.30) (4.00-5.30) (4.00-5.30) Hemoglobin 10.3 GM/DL 10.2 GM/DL 9.5 GM/DL (11.6-15.3) (11.6-15.3) (11.6-15.3) Hematocrit 30.8 % 30.3 % 27.8 % (35.0-46.0) (35.0-46.0) (35.0-46.0) Neutrophils (%) (Auto) 78.6 % 74.5 % (16.0-70.0) (16.0-70.0) Neutrophils # (Auto) 9.8 TH/MM3 9.6 TH/MM3 (1.8-7.7) (1.8-7.7) Sodium Level 132 MEQ/L 134 MEQ/L (136-145) (136-145) Potassium Level 3.2 MEQ/L (3.5-5.1) Chloride Level 94 MEQ/L (98-107) Blood Urea Nitrogen 40 MG/DL (7-18) 32 MG/DL (7-18) 26 MG/DL (7-18) Creatinine 2.09 MG/DL 1.80 MG/DL 1.63 MG/DL (0.50-1.00) (0.50-1.00) (0.50-1.00) Estimat Glomerular Filtration 24 ML/MIN (>89) 29 ML/MIN (>89) 33 ML/MIN (>89) Rate Calcium Level 8.0 MG/DL 8.0 MG/DL 8.4 MG/DL (8.5-10.1) (8.5-10.1) (8.5-10.1) Monocytes # (Auto) 1.0 TH/MM3 (0-0.9) Monocytes (%) (Auto) 9.7 % (0.0-8.0) Prothrombin Time 13.5 SEC (9.8-11.6) PE at Discharge General: NAD, AAOx3 Chest: Coarse breath sounds bilaterally Cardiac: Regular Abd: +BS, soft ND/NT : Cardoso cath in place Ext: No edema Hospital Course (1) Altered mental status Status: Acute Plan: - Pt admitted with altered mental status with elevated WBC count of 21,000, acute renal failure with creatinine greater than 8, and Coumadin toxicity with INR of 10 at admission. - Her AMS is likely secondary to acute renal failure. - Head CT in the ED was negative - CT Abd/pelvis (08/09/16) --> Minimal consolidative changes in the right base, suspicious for an inflammatory process. Left adrenal mass, probably adenoma. - Pt was given 3L of IVF in the ED - She was given a doze of Azactam and Gentamicin in the ER - She was given Vitamin K po and IV in the ER - MRI brain negative for any acute changes - UA was abnormal and Urine culture is growing E. coli - Blood cultures drawn (08/09) with one out of four growing MSSA - Pt is on Zyvox by ID (started 08/10) and Levaquin (started 08/11). - Renal US was normal - Pt had been on IVF with NS @ 100mL/hr - Her renal function has improved from Cr 8.37 (08/09) --> 5.62 (08/10) --> 2.93 ( 08/11) --> 2.09 (08/12) --> 1.80 (08/13) --> 1.63 (08/14) and the pts mentation has improved significantly. - Pt with increased cough and congestion on 08/11 and CXR with findings of some possible volume overload. - IVF stopped on 08/11 encourage oral intake - Pt given one time dose of Lasix 40mg IV with good UOP and is off supplemental O2 but still with a significant cough and congestion. Pt with similar symptoms. - CXR (08/12) --> Bibasilar infiltrates, right greater than left. No significant change. - Duonebs/Mucinex/Robitussin started on 08/13 - ID has recommended that the pt stay in the hospital until the blood culture is back in 2 days on Tuesday. She is agreeable. - If the blood culture is negative ID recommending the Zyvox can be switched to PO for another 5 days. - The Levaquin can be continued also for 5 days also since she has lung infiltrates in addition to UTI and sinusitis on MRI. 08/14/16 - blood cx negative at 3d - pt clinically stable - will discharge to home in PM after PM dose of zyvox - orders for discharge placed in [facility] - see discharge orders - pt to f/u with PCP, Dr. Lee in 3-5 days (2) Acute renal failure Status: Acute Plan: - Pt has acute on chronic renal failure, improving, almost to baseline - See above. (3) Coumadin toxicity Status: Acute Plan: - Pt is on Coumadin for hx of embolic CVA thought to possible be secondary to PFO - INR was 10 at admission - Pt was given po and IV Vitamin K and INR still subtherapeutic - Cont. Coumadin. - Lovenox 30mg daily - Monitor INR - will arrange [facility] - pt have daily INR, stop lovenox when coumadin again above 2 (4) Hypertension Status: Chronic Plan: - Home meds held - Clonidine PRN (5) Diabetes mellitus Status: Chronic Plan: - NovoLog SSI - Accu checks - Metformin (6) Hyperlipidemia Status: Chronic Pt Condition on Discharge: Stable Discharge Disposition: Disch w/ Home Health Serv Discharge Instructions DIET: Follow Instructions for: Heart Healthy Diet, Diabetic Diet Activities you can perform: Weight Bearing as Lakshmi Follow up Referrals: PCP Follow-up - 3-[address] Leonardo Lee New Medications: Albuterol Neb (Albuterol Neb) 2.5 Mg/3 Ml Neb 2.5 MG NEB QID NEB give together with atrovent PRN SOB/WHEEZING #60 Ref 0 NEBULE Ipratropium Neb (Ipratropium Neb) 0.5 Mg/2.5 Ml Amp 0.5 MG NEB Q6HR NEB give together with albuterol neb PRN SOB/WHEEZING #60 Ref 0 NEBULE Linezolid (Zyvox) 600 Mg Tab 600 MG PO Q12H Infection #10 Ref 0 TAB Enoxaparin Inj (Lovenox Inj) 30 Mg/0.3 Ml Syr 30 MG SQ Q24H stop when INR is above 2 pfo #7 Ref 0 INJECTION Levofloxacin (Levaquin) 250 Mg Tab 250 MG PO DAILY uti #5 Ref 0 TAB Changed Medications: Citalopram (Citalopram) 40 Mg Tab 40 MG PO DAILY hold this medication until course of antibiotics has been completed Control Depression #90 Ref 0 TAB (Medication details modified) Continued Medications: Aspirin (Aspirin) 81 Mg Tabdr 81 MG PO DAILY #90 TAB Gabapentin (Gabapentin) 800 Mg Tab 800 MG PO TID #270 Ref 0 TAB Hydrochlorothiazide (Hydrochlorothiazide) 25 Mg Tab 25 MG PO DAILY #90 Ref 0 TAB Hydrocodone-Acetaminophen (Lortab) 10-325 Mg Tab 1 TAB PO Q4H PRN PAIN #100 Ref 0 TAB Metformin (Metformin) 1,000 Mg Tab 1000 MG PO BIDPC With meals Blood Sugar Management #60 Ref 0 TAB Simvastatin (Simvastatin) 40 Mg Tab 40 MG PO HS Cholesterol Management #90 Ref 0 TAB Warfarin (Warfarin) 5 Mg Tab 5 MG PO DAILY Blood Clot Prevention #90 Ref 0 TAB Discontinued Medications: Lisinopril (Lisinopril) 40 Mg Tab 40 MG PO DAILY Blood Pressure Management #90 Ref 0 TAB John Orellana DO Aug 14, 2016 21:27
[2016-08-15] MEDS: LINEZOLID 600 MG PREMIX 300 ML IV SCH ×2 (01:16→12:26)
[2016-08-15] MEDS: INSULIN ASPART SUPPLEMENTAL SCALE SQ SCH ×2 (06:03→11:17)
[2016-08-15 08:00] VITALS: BP 124/82; PULSE 80; RESP 16; TEMP 98.3; O2SAT 94
[2016-08-15] MEDS: SODIUM CHLORIDE 0.9% FLUSH 5 ML FLUSH FLUSH SCH (09:35)
[2016-08-15] MEDS: ASPIRIN EC 81 MG TABEC PO SCH (09:35)
[2016-08-15] MEDS: GABAPENTIN 300 MG CAP PO SCH (09:35)
[2016-08-15] MEDS: guaiFENesin E.R. 600 MG TAB PO SCH (09:35)
[2016-08-15] MEDS: POLYETHYLENE GLYCOL 17 GM PKG PO SCH (09:36)
[2016-08-15] MEDS: RESP: ALBUTEROL 2.5 MG/IPRATROPIUM 0.5 MG NEB (SCH) NEB ×2 (09:41→13:18)
[2016-08-15 09:42] VITALS: O2SAT 95
[2016-08-15 12:00] VITALS: BP 107/61; PULSE 88; RESP 16; TEMP 97.7; O2SAT 93
[2016-08-18] MEDS ORDERED: LINE1TAB PO (16:01)
[2016-08-18] MEDS ORDERED: TRAM50TA PO (16:22)
[2016-08-18] MEDS ORDERED: HYDR-3535 PO (16:22)
[2016-09-15] MEDS ORDERED: TRAM50TA PO (15:30)
[2016-09-15] MEDS ORDERED: HYDR-2374 PO (15:30)
[2016-09-20] MEDS ORDERED: HYDR-3583 PO ×2 (15:15→15:17)
--- NOTE | 2016-10-04 09:10 | PQ ---
Physician Query Response Document PATIENT: BRITTANY TILLEY : 1960 ADMIT DATE: 08/09/2016 1:59 PM DISCH DATE: 08/15/2016 2:09 PM RESPONDING PROVIDER #: Eschwarselena QUERY TEXT: Clinical Validity Additional clinical indicators are required to support your documented diagnosis of Please respond and also state in your next progress note whether: -- Condition exists and also please provide clinical indicators to support the diagnosis -- Condition does not exist and also please provide amended documentation in the medical record to cl claritza -- Unable to provide additional clarity regarding the diagnosis -- Other, please specify The patient's Clinical Indicators include: Infectious Disease Progress Note 08/11/[address] Vega IMPRESSION 1. Sepsis in patient with leukocytosis and acute renal failure and altered mental status on presentation. MSSA. 2. Altered mental status improved. 3. Urinary tract infection. E. coli. Query created by: Mireille Brooke on 08/30/2016 2:45 PM RESPONSE TEXT: I agree pt's Altered Mental Status could have been attributable to sepsis in view of pt's presentatio n with Leukocytosis, acute renal failure, UTI. Electronically signed by: John Orellana DO 10/04/2016 9:05 AM
[2016-10-13] MEDS ORDERED: LISI40TA PO (09:31)
[2016-10-13] MEDS ORDERED: SIMV40TA PO (09:31)
[2016-10-13] MEDS ORDERED: METF1000 PO (09:31)
[2016-10-13] MEDS ORDERED: SYNT25TA PO (09:32)
[2016-10-13] MEDS ORDERED: FLUD.1 PO (09:32)
[2016-10-14] MEDS ORDERED: LEVO100T5 PO (14:32)
[2016-10-19] MEDS ORDERED: HYDR-3583 PO (13:51)
[2016-10-20] MEDS ORDERED: TRAM50TA PO (13:38)
[2016-11-18] MEDS ORDERED: COUM3TAB PO (12:26)
[2016-12-23] MEDS ORDERED: TRAM50TA PO (09:38)
[2016-12-23] MEDS ORDERED: HYDR-3583 PO (09:38)
[2016-12-24] MEDS ORDERED: WARF-20 PO (10:36)
[2016-12-29] MEDS ORDERED: LEVO88TA2 PO (19:31)
[2017-01-18] MEDS ORDERED: COUM4TAB PO (17:55)
== END 2016-08-15 14:09 | disposition home health service (06) | DRG 872 ==
LOC: NEPE 11:20 → NEDA 13:59 → N04B 17:38
PROVIDERS: ADMIT Hospitalist; ATTEND Hospitalist
DX: A41.9 Sepsis, unspecified organism (principal); E11.22 Type 2 diabetes mellitus with diabetic chronic kidney disease; M32.9 Systemic lupus erythematosus, unspecified; N17.9 Acute kidney failure, unspecified; N18.3 Chronic kidney disease, stage 3 (moderate); Q21.1 Atrial septal defect; N39.0 Urinary tract infection, site not specified; E86.0 Dehydration; B96.20 Unspecified Escherichia coli [E. coli] as the cause of diseases classified elsewhere; T45.511A Poisoning by anticoagulants, accidental (unintentional), initial encounter; D35.02 Benign neoplasm of left adrenal gland; I12.9 Hypertensive chronic kidney disease with stage 1 through stage 4 chronic kidney disease, or unspecified chronic kidney disease; Z79.01 Long term (current) use of anticoagulants; Z86.73 Personal history of transient ischemic attack (TIA), and cerebral infarction without residual deficits; J32.4 Chronic pansinusitis; G47.30 Sleep apnea, unspecified; E87.6 Hypokalemia; D64.9 Anemia, unspecified; E03.9 Hypothyroidism, unspecified; J45.909 Unspecified asthma, uncomplicated; E78.5 Hyperlipidemia, unspecified; E78.00 Pure hypercholesterolemia, unspecified; G25.81 Restless legs syndrome; M19.90 Unspecified osteoarthritis, unspecified site; J32.9 Chronic sinusitis, unspecified
CPT/HCPCS: 51702; 70450; 70551; 71010; 71020; 74176; 76775; 80048; 80053; 80307; 80320; 81001; 82140; 82550; 82607; 82746; 82948; 83605; 83690; 83735; 84100; 84155; 84439; 84443; 85025; 85610; 85730; 86592; 86850; 86900; 86901; 87040; 87077; 87086; 87186; 87205; 93005; 93880; 94150; 94640; 94664; 96374; C9113; J1580; J1650; J1815; J1940; J2020; J2060; J2405; J3430; J3475; J7030

== ENCOUNTER 2016-08-20 08:58 | Inpatient (IN) | payer OTHER ==
[~2016-08-20] VITALS: Ht 170.2 cm; Wt 88.7 kg
[2016-08-20] VITALS (9 sets, daily range): BP systolic 150–170; BP diastolic 81–91; PULSE 69–82; RESP 16–18; TEMP 97.7–98; O2SAT 96–98
[~2016-08-20 08:58] MED LIST changes: +ALBU0.08 NEB; +ENOX30P SQ; +IPRA0.02 NEB; +LEVA250T PO; +LINE1TAB PO; -LISI40TA PO; +METF1000 PO; -MIRA33504 PO; +ZYVO600T PO
[2016-08-20] MEDS ORDERED: SODIUM CHLOR 0.9% 1000 ML INJ 1,000 ML IV SCH (09:02)
[2016-08-20] MEDS ORDERED: ONDANSETRON HCL 4 MG/2 ML VIAL IVP ONE (09:15)
[2016-08-20] MEDS ORDERED: LISI40TA PO (09:28)
[2016-08-20] MEDS ORDERED: RISP2TAB37 PO (09:29)
--- NOTE | 2016-08-20 09:43 | PD ---
HPI Chief Complaint: GI Complaint Time Seen by Provider: 09:35 Travel History International Travel<30 days: No Contact w/Intl Traveler<30days: No Traveled to known affect area: No History of Present Illness HPI 55-year-old female with history of previous stroke, diabetes, seen in the hospital last week for altered mental status and sepsis, was found to be in renal failure, presents back to the ER today because patient's states that for the past 2 days she has been complaining of nausea, vomiting several times, diffuse abdominal pains, and feeling warm. She apparently had some similar episodes last time as well. They deny any diarrhea, chest pains, shortness of breath, or other issues. Modifying Factors: None Associated Signs & Symptoms: Nausea, vomiting, abdominal discomfort Risk Factors: None PFSH Past Medical History Hx Anticoagulant Therapy: Yes Arthritis: Yes Asthma: Yes Autoimmune Disease: Yes (LUPUS) Blood Disorders: No Anxiety: Yes Depression: Yes Heart Rhythm Problems: No Cancer: No Cardiovascular Problems: Yes High Cholesterol: Yes Chest Pain: No Congestive Heart Failure: No COPD: No Cerebrovascular Accident: Yes (CVA November 2012) Diabetes: Yes Patient Takes Glucophage: Yes (METFORMIN 1,000 MG PO 08/20/16 0800AM LAST DOSE) Diminished Hearing: No Endocrine: Yes (DM II) Gastrointestinal Disorders: Yes Glaucoma: No Genitourinary: No Headaches: Yes Hepatitis: No Hiatal Hernia: Yes Heparin Induced Thrombocytopen: No Hypertension: Yes Immune Disorder: Yes (LUPUS) Implanted Vascular Access Dvce: No Kidney Stones: No Musculoskeletal: Yes Neurologic: Yes (CVA November 2012) Psychiatric: Yes Reproductive: Yes (ovary removed) Respiratory: Yes (SLEEP APNEA) Migraines: No Myocardial Infarction: No Renal Failure: No Seizures: No Sickle Cell Disease: No Sleep Apnea: Yes Thyroid Disease: Yes (hypothyroidism) Ulcer: No Tetanus Vaccination: < 5 Years Influenza Vaccination: Yes ?: Not Menopausal: Yes : 3 Para: 3 Ovarian Cysts: Yes (R) Tubal Ligation: Yes (R ) Past Surgical History Abdominal Surgery: Yes (Cholecystectomy) Appendectomy: No Cardiac Surgery: No Cholecystectomy: Yes Ear Surgery: No Endocrine Surgery: No Eye Surgery: No Genitourinary Surgery: No Gynecologic Surgery: Yes (ovary removed) Neurologic Surgery: No Oral Surgery: No Thoracic Surgery: No Other Surgery: Yes Social History Alcohol Use: Yes (OCCASIONALLY) Tobacco Use: No Substance Use: Yes (MARIJUANA) Allergies-Medications (Allergen,Severity, Reaction): Coded Allergies: Penicillin (Verified Allergy, Severe, Rash, 08/20/16) Reported Meds & Prescriptions Reported Meds & Active Scripts Active Tramadol (Tramadol HCl) 50 Mg Tab 50 Mg PO Q8H PRN Lortab (Hydrocodone-Acetaminophen) 10-325 Mg Tab 1 Tab PO Q4H PRN Zyvox (Linezolid) 600 Mg Tab 600 Mg PO Q12H Levaquin (Levofloxacin) 250 Mg Tab 250 Mg PO DAILY Citalopram (Citalopram Hydrobromide) 40 Mg Tab 40 Mg PO DAILY hold this medication until course of antibiotics has been completed Warfarin 5 Mg Tab 5 Mg PO DAILY Gabapentin 800 Mg Tab 800 Mg PO TID Aspirin 81 Mg Tabdr 81 Mg PO DAILY Simvastatin 40 Mg Tab 40 Mg PO HS Reported Risperdal (Risperidone) 2 Mg Tab 2 Mg PO DAILY Lisinopril 40 Mg Tab 40 Mg PO DAILY Metformin (Metformin HCl) 1,000 Mg Tab 1,000 Mg PO BIDPC With meals Review of Systems Except as stated in HPI: all other systems reviewed are Neg (answers mostly from ) Physical Exam Narrative GENERAL: Well-nourished, well-developed middle age white female patient in no acute distress, awake, alert, does most of question answering for her. SKIN: Warm and dry. HEAD: Normocephalic. EYES: No scleral icterus. No injection or drainage. NECK: Supple, trachea midline. CARDIOVASCULAR: Regular rate and rhythm without murmurs, gallops, or rubs. RESPIRATORY: Breath sounds equal bilaterally. No accessory muscle use. GASTROINTESTINAL: Abdomen soft, non-tender, nondistended. MUSCULOSKELETAL: No cyanosis, or edema. BACK: Nontender without obvious deformity. No CVA tenderness. Data Data Last Documented VS Vital Signs Date Time Temp Pulse Resp B/P Pulse Ox O2 Delivery O2 Flow Rate FiO2 08/20/16 12:50 98.0 69 17 153/85 98 Room Air Orders Complete Blood Count With Diff (08/20/16 09:02) Comprehensive Metabolic Panel (08/20/16 09:02) Lipase (08/20/16 09:02) Urinalysis - C+S If Indicated (08/20/16 09:02) Iv Access Insert/Monitor (08/20/16 09:02) Ecg Monitoring (08/20/16 09:02) Oximetry (08/20/16 09:02) Ondansetron Inj (Zofran Inj) (08/20/16 09:15) Sodium Chlor 0.9% 1000 Ml Inj (Ns 1000 M (08/20/16 09:02) Sodium Chloride 0.9% Flush (Ns Flush) (08/20/16 09:15) Prothrombin Time / Inr (Pt) (08/20/16 09:36) Act Partial Throm Time (Ptt) (08/20/16 09:36) Ct Abd/Pel W/O Iv Contrast (08/20/16 10:49) Lactic Acid Sepsis Protocol (08/20/16 12:44) Blood Culture (08/20/16 12:44) Chest, Single Ap (08/20/16 12:44) Cefepime Inj (Maxipime Inj) (08/20/16 12:44) Azithromycin Inj (Zithromax Inj) (08/20/16 12:44) Labs Laboratory Tests Test 08/20/16 08/20/16 08/20/16 09:05 09:21 10:15 White Blood Count 12.1 TH/MM3 Red Blood Count 3.60 MIL/MM3 Hemoglobin 10.3 GM/DL Hematocrit 30.1 % Mean Corpuscular Volume 83.8 FL Mean Corpuscular Hemoglobin 28.5 PG Mean Corpuscular Hemoglobin 34.1 % Concent Red Cell Distribution Width 14.2 % Platelet Count 297 TH/MM3 Mean Platelet Volume 7.6 FL Neutrophils (%) (Auto) 69.4 % Lymphocytes (%) (Auto) 23.6 % Monocytes (%) (Auto) 4.7 % Eosinophils (%) (Auto) 1.5 % Basophils (%) (Auto) 0.8 % Neutrophils # (Auto) 8.4 TH/MM3 Lymphocytes # (Auto) 2.9 TH/MM3 Monocytes # (Auto) 0.6 TH/MM3 Eosinophils # (Auto) 0.2 TH/MM3 Basophils # (Auto) 0.1 TH/MM3 CBC Comment DIFF FINAL Differential Comment Sodium Level 136 MEQ/L Potassium Level 5.1 MEQ/L Chloride Level 103 MEQ/L Carbon Dioxide Level 25.9 MEQ/L Anion Gap 7 MEQ/L Blood Urea Nitrogen 28 MG/DL Creatinine 2.22 MG/DL Estimat Glomerular Filtration 23 ML/MIN Rate Random Glucose 63 MG/DL Calcium Level 8.9 MG/DL Total Bilirubin 0.2 MG/DL Aspartate Amino Transf 21 U/L (AST/SGOT) Alanine Aminotransferase 22 U/L (ALT/SGPT) Alkaline Phosphatase 111 U/L Total Protein 7.1 GM/DL Albumin 2.9 GM/DL Lipase 105 U/L Prothrombin Time 49.8 SEC Prothromb Time International 4.2 RATIO Ratio Activated Partial 44.9 SEC Thromboplast Time Urine Color YELLOW Urine Turbidity CLEAR Urine pH 5.5 Urine Specific [place] 1.019 Urine Protein TRACE mg/dL Urine Glucose (UA) NEG mg/dL Urine Ketones NEG mg/dL Urine Occult Blood NEG Urine Nitrite NEG Urine Bilirubin NEG Urine Urobilinogen LESS THAN 2.0 MG/DL Urine Leukocyte Esterase NEG Urine RBC LESS THAN 1 /hpf Urine WBC 1 /hpf Urine Squamous Epithelial 1 /hpf Cells Urine Hyaline Casts 8 /lpf Urine Mucus FEW /lpf Microscopic Urinalysis Comment CULT NOT INDICATED MDM Medical Decision Making Medical Screen Exam Complete: Yes Emergency Medical Condition: Yes Medical Record Reviewed: Yes Interpretation(s) Laboratory Tests Test 08/20/16 08/20/16 08/20/16 09:05 09:21 10:15 White Blood Count 12.1 TH/MM3 (4.0-11.0) Red Blood Count 3.60 MIL/MM3 (4.00-5.30) Hemoglobin 10.3 GM/DL (11.6-15.3) Hematocrit 30.1 % (35.0-46.0) Neutrophils # (Auto) 8.4 TH/MM3 (1.8-7.7) Blood Urea Nitrogen 28 MG/DL (7-18) Creatinine 2.22 MG/DL (0.50-1.00) Estimat Glomerular Filtration 23 ML/MIN (>89) Rate Random Glucose 63 MG/DL (74-106) Albumin 2.9 GM/DL (3.4-5.0) Prothrombin Time 49.8 SEC (9.8-11.6) Activated Partial 44.9 SEC Thromboplast Time (24.3-30.1) Urine Mucus FEW /lpf (OCC) Last 24 hours Impressions Abdomen/Pelvis CT 08/20/16 1049 Signed Impressions: Service Date/Time: Saturday, August 20, 2016 11:28 - CONCLUSION: Essentially stable scan of the abdomen and pelvis other than apparent removal of a Cardoso catheter with a small amount residual air anteriorly in the urinary bladder. No acute intra-abdominal or pelvic process. The right lower lobe parenchymal infiltrate has progressed to a more rounded appearance and cicatrization Long Garber MD Differential Diagnosis Nausea, vomiting, diffuse abdominal painsdehydration versus metabolic issues versus acute on chronic renal failure versus gastroenteritis versus acute intra- abdominal processes Narrative Course Lab work shows elevated white blood cell count. CT of the abdomen did not reveal any signs of acute intra-abdominal processes but there is a notable right lower lobe infiltrate questionable for underlying pneumonia. IV antibiotics were initiated in the ER. IV fluids given especially considering that her renal functions are worsening. I have talked to the patient initially regarding the findings and patient wanted to go home and consideration was made to release the patient, however after extensively talking to them, she is agreeable to staying. Case was discussed with PA for Dr. Akers for admission. Sepsis Criteria SIRS Criteria (2 or more): WBC > 78921, < 4000 or > 10% bands Sepsis Criteria (SIRS+source): Infect source susp/known Severe Sepsis (+one): Acute Oliguria/Renal Failure Diagnosis Primary Impression: Elevated INR (international normalized ratio) due to prior anticoagulant medication ingestion Additional Impression: UNSPECIFIED BACTERIAL PNEUMONIA Admitting Information Admitting Physician Requests: Admit Candie Blackburn MD Aug 20, 2016 09:43
[2016-08-20 09:51] LABS: AUTOMATED NEUTROPHIL # 8.4 TH/MM3 (1.8-7.7); BASOPHIL # 0.1 TH/MM3 (0-0.2); BASOPHIL % 0.8 % (0.0-2.0); EOSINOPHIL # 0.2 TH/MM3 (0-0.4); EOSINOPHIL % 1.5 % (0.0-4.0); HEMATOCRIT 30.1 % (35.0-46.0); HEMO FLAGS DIFF FINAL; LYMPH % 23.6 % (9.0-44.0); LYMPHOCYTE # 2.9 TH/MM3 (1.0-4.8); MEAN CELL VOLUME 83.8 FL (80.0-100.0); MEAN CORPUSCULAR HEMOGLOBIN 28.5 PG (27.0-34.0); MEAN CORPUSCULAR HGB CONC 34.1 % (32.0-36.0); MONO % 4.7 % (0.0-8.0); NEUT % 69.4 % (16.0-70.0); PLATELET COUNT 297 TH/MM3 (150-450); RED CELL DISTRIBUTION WIDTH 14.2 % (11.6-17.2); WHITE BLOOD COUNT 12.1 TH/MM3 (4.0-11.0)
[2016-08-20 10:13] LABS: ANION GAP 7 MEQ/L (5-15); AST (GOT) 21 U/L (15-37); BICARBONATE 25.9 MEQ/L (21.0-32.0); BLOOD UREA NITROGEN 28 MG/DL (7-18); CHLORIDE 103 MEQ/L (98-107); GLOMERULAR FILTRATION RATE 23 ML/MIN (>89); POTASSIUM 5.1 MEQ/L (3.5-5.1); SODIUM (NA) 136 MEQ/L (136-145)
[2016-08-20] MEDS: SODIUM CHLORIDE 0.9% FLUSH 5 ML FLUSH IVF PRN ×2 (10:14→14:02)
[2016-08-20 10:18] LABS: ALKALINE PHOSPHATASE 111 U/L (45-117); ALT (GPT) 22 U/L (10-53); TOTAL BILIRUBIN ADULT 0.2 MG/DL (0.2-1.0)
[2016-08-20 10:34] LABS: BLOOD, URINE NEG (NEG); COMMENT (UR) CULT NOT INDICATED; CULTURE IF INDICATED CULT NOT INDICATED; GLUCOSE,URINE NEG (NEG); HYALINE CAST, URINE 8 /lpf (RARE); KETONE, URINE NEG (NEG); MUCUS URINE FEW /lpf (OCC); NITRITE,URINE NEG (NEG); PH, URINE 5.5 (5.0-8.5); SQUAMOUS EPITHELIAL CELL URINE 1 /hpf (0-5); URINE COLOR YELLOW (YELLW/STRAW)
[2016-08-20 10:53] LABS: APTT (PATIENT) 44.9 SEC (24.3-30.1); INTERNATIONAL NORMALIZED RATIO 4.2 RATIO; PROTHROMBIN TIME - PATIENT 49.8 SEC (9.8-11.6)
--- NOTE | 2016-08-20 12:15 | RADRPT ---
EXAM DATE/TIME: 08/20/2016 11:28 [facility] COMPARISON: CT ABDOMEN & PELVIS W/O CONTRAST, August 09, 2016, 13:28. INDICATIONS : Vomiting, nausea, and diffuse abdominal pain for two days. ORAL CONTRAST: No oral contrast ingested. RADIATION DOSE: 10.14 CTDIvol (mGy) MEDICAL HISTORY : Hypertension. Hernia, hiatal. Diabetes mellitus type 2.Lupus. SURGICAL HISTORY : Cholecystectomy. Right oopharectomy. ENCOUNTER: Initial ACUITY: 1 day PAIN SCALE: 6/10 LOCATION: Bilateral abdomen TECHNIQUE: Volumetric scanning of the abdomen and pelvis was performed. Using automated exposure control and ad justment of the mA and/or kV according to patient size, radiation dose was kept as low as reasonably achievable to obtain optimal diagnostic quality images. FINDINGS: The infiltrative changes in the right lower lobe posterior basilar segment reveal persistent microgra ms and a rounded appearance consistent with pseudotumor cicatrizing infiltrate. Bony structures demonstrate degenerative c hanges of the lumbar spine and there is a 2.3 cm persistent adenoma of the left adrenal gland. Surgic al clips are in place prior cholecystectomy with some retraction of the margin of the right lobe live r which is stable. No evidence of dilated ducts with normal aqueous kidneys and spleen as well as daniel ar mesentery. Bowel distribution is benign no evidence of reproductive abnormality , Cardoso catheter i s absent however there is small amount of air residual in the anterior aspect of the urinary bladder CONCLUSION: Essentially stable scan of the abdomen and pelvis other than apparent removal of a Cardoso catheter wit h a small amount residual air anteriorly in the urinary bladder. No acute intra-abdominal or pelvic p rocess. The right lower lobe parenchymal infiltrate has progressed to a more rounded appearance and c icatrization Long Garber MD on August 20, 2016 at 12:08 Board Certified Radiologist. This report was verified electronically.
[2016-08-20] MEDS ORDERED: CEFEPIME INJ 2,000 MG in SODIUM CHLORIDE 0.9% INJ 100 ML IV STA (12:44)
[2016-08-20] MEDS ORDERED: AZITHROMYCIN INJ 500 MG in SODIUM CHLOR 0.9% 250 ML INJ 250 ML IV STA (12:44)
--- NOTE | 2016-08-20 13:38 | HHI.HP ---
[facility] Service Family Medicine Primary Care Physician Shan Quick MD Admission Diagnosis right lower lobe pneumonia/elevated INR Diagnoses: International Travel<30 Days: No Contact w/Intl Traveler<30days: No Known Affected Area: No History of Present Illness 55-year-old female with history of previous stroke, diabetes, seen in the hospital last week for altered mental status and sepsis, was found to be in renal failure, presents back to the ER today because patient's states that for the past 2 days she has been complaining of nausea, vomiting several times, diffuse abdominal pains, and feeling warm. She apparently had some similar episodes last time as well. They deny any diarrhea, chest pains, shortness of breath, or other issues. Lab work shows elevated white blood cell count. CT of the abdomen did not reveal any signs of acute intra-abdominal processes but there is a notable right lower lobe infiltrate questionable for underlying pneumonia. IV antibiotics were initiated in the ER. IV fluids given especially considering that her renal functions are worsening. I have talked to the patient initially regarding the findings and patient wanted to go home and consideration was made to release the patient, however after extensively talking to them, she is agreeable to staying. Case was discussed with PA for Dr. Akers for admission. 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 Powell: neurologist Past Surgical History Cholecystectomy 1996 Right oophero salpingectomy 1996 Reported Medications Reported Meds & Active Scripts Active Tramadol (Tramadol HCl) 50 Mg Tab 50 Mg PO Q8H PRN Lortab (Hydrocodone-Acetaminophen) 10-325 Mg Tab 1 Tab PO Q4H PRN Citalopram (Citalopram Hydrobromide) 40 Mg Tab 40 Mg PO DAILY hold this medication until course of antibiotics has been completed Warfarin 5 Mg Tab 5 Mg PO DAILY Gabapentin 800 Mg Tab 800 Mg PO TID Aspirin 81 Mg Tabdr 81 Mg PO DAILY Simvastatin 40 Mg Tab 40 Mg PO HS Reported Risperdal (Risperidone) 2 Mg Tab 2 Mg PO DAILY Lisinopril 40 Mg Tab 40 Mg PO DAILY Metformin (Metformin HCl) 1,000 Mg Tab 1,000 Mg PO BIDPC With meals Allergies: Coded Allergies: Penicillin (Verified Allergy, Severe, Rash, 08/20/16) Family History Father's at 63 of throat and tongue cancer Mother is at 55 cardiac complications One sister has cardiac disease and hypertension Social History Tobacco: Denies Alcohol: Denies Drugs: Denies 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 Preventative: Cervical cancer screening: Jun 2016, normal Mammogram: 2012, need to repeat, ordered 05/19/16 but not done yet Immunizations: Influenza: Received for Zoster: Age 59 Pneumovax: believes she had it in 2013 Colonoscopy 2012: Polyps Physical Exam Vital Signs Vital Signs Date Time Temp Pulse Resp B/P Pulse Ox O2 Delivery O2 Flow Rate FiO2 08/20/16 12:50 98.0 69 17 153/85 98 Room Air 08/20/16 10:35 97.8 78 17 150/84 98 Room Air 08/20/16 09:10 17 08/20/16 09:05 18 98 Room Air 08/20/16 09:00 97.7 82 16 165/82 96 Physical Exam GENERAL: This is a well-nourished, well-developed patient, in no apparent distress. SKIN: No rashes, ecchymoses or lesions. Cool and dry. HEAD: Atraumatic. Normocephalic. No temporal or scalp tenderness. EYES: Pupils equal round and reactive. Extraocular motions intact. No scleral icterus. No injection or drainage. ENT: Nose without bleeding, purulent drainage or septal hematoma. Throat without erythema, tonsillar hypertrophy or exudate. Uvula midline. Airway patent. NECK: Trachea midline. No JVD or lymphadenopathy. Supple, nontender, no meningeal signs. CARDIOVASCULAR: Regular rate and rhythm without murmurs, gallops, or rubs. RESPIRATORY: Clear to auscultation. Breath sounds equal bilaterally. No wheezes , rales, or rhonchi. GASTROINTESTINAL: Abdomen soft, non-tender, nondistended. No hepato-splenomegaly , or palpable masses. No guarding. MUSCULOSKELETAL: Extremities without clubbing, cyanosis, or edema. No joint tenderness, effusion, or edema noted. No calf tenderness. Negative Homans sign bilaterally. NEUROLOGICAL: Awake and alert. Cranial nerves II through XII intact. Motor and sensory grossly within normal limits. Five out of 5 muscle strength in all muscle groups. Normal speech. Laboratory Laboratory Tests Test 08/20/16 08/20/16 08/20/16 08/20/16 09:05 09:21 10:15 12:50 White Blood Count 12.1 Red Blood Count 3.60 Hemoglobin 10.3 Hematocrit 30.1 Mean Corpuscular Volume 83.8 Mean Corpuscular Hemoglobin 28.5 Mean Corpuscular Hemoglobin 34.1 Concent Red Cell Distribution Width 14.2 Platelet Count 297 Mean Platelet Volume 7.6 Neutrophils (%) (Auto) 69.4 Lymphocytes (%) (Auto) 23.6 Monocytes (%) (Auto) 4.7 Eosinophils (%) (Auto) 1.5 Basophils (%) (Auto) 0.8 Neutrophils # (Auto) 8.4 Lymphocytes # (Auto) 2.9 Monocytes # (Auto) 0.6 Eosinophils # (Auto) 0.2 Basophils # (Auto) 0.1 CBC Comment DIFF FINAL Differential Comment Sodium Level 136 Potassium Level 5.1 Chloride Level 103 Carbon Dioxide Level 25.9 Anion Gap 7 Blood Urea Nitrogen 28 Creatinine 2.22 Estimat Glomerular Filtration 23 Rate Random Glucose 63 Calcium Level 8.9 Total Bilirubin 0.2 Aspartate Amino Transf 21 (AST/SGOT) Alanine Aminotransferase 22 (ALT/SGPT) Alkaline Phosphatase 111 Total Protein 7.1 Albumin 2.9 Lipase 105 Prothrombin Time 49.8 Prothromb Time International 4.2 Ratio Activated Partial 44.9 Thromboplast Time Urine Color YELLOW Urine Turbidity CLEAR Urine pH 5.5 Urine Specific [place] 1.019 Urine Protein TRACE Urine Glucose (UA) NEG Urine Ketones NEG Urine Occult Blood NEG Urine Nitrite NEG Urine Bilirubin NEG Urine Urobilinogen LESS THAN 2.0 Urine Leukocyte Esterase NEG Urine RBC LESS THAN 1 Urine WBC 1 Urine Squamous Epithelial 1 Cells Urine Hyaline Casts 8 Urine Mucus FEW Microscopic Urinalysis Comment CULT NOT INDICATED Lactic Acid Level 0.6 Date/Time Procedure Status Source Growth 08/20/16 12:50 Aerobic Blood Culture Received Blood Peripheral Pending 08/20/16 12:50 Anaerobic Blood Culture Received Blood Peripheral Pending Result Diagram: 08/20/1690408/20/16 09 Physician Certification Order for Inpatient Services The services are ordered in accordance with Medicare regulations or non- Medicare payer requirements, as applicable. In the case of services not specified as inpatient-only, they are appropriately provided as inpatient services in accordance with the 2-midnight benchmark. days is the estimated time the patient will need to remain in the hospital, assuming treatment plan goals are met and no additional complications. Peter Ng MD R3 Aug 20, 2016 13:38
--- NOTE | 2016-08-20 13:50 | RADRPT ---
EXAM DATE/TIME: 08/20/2016 12:56 [facility] COMPARISON: CHEST PA & LAT, August 12, 2016, 8:18. CHEST SINGLE AP, August 11, 2016, 10:40. INDICATIONS : Nausea with vomiting x 3 weeks. MEDICAL HISTORY : None. SURGICAL HISTORY : None. ENCOUNTER: Initial ACUITY: 1 month PAIN SCORE: 0/10 LOCATION: Abdomen FINDINGS: A single portable frontal view of the chest shows improvement in the right basilar consolidation rela tively prior study. Linear atelectasis versus scarring is seen within the medial left lung base. Janine ining lungs are clear. No effusions. Heart is normal in size. Bony structures are unremarkable. Elect ronic device overlies the left anterior chest. CONCLUSION: Improvement in the right lower lobe infiltrate. Residual scar/atelectasis within the left lung base. Jordan Borges Jr., MD on August 20, 2016 at 13:47 Board Certified Radiologist. This report was verified electronically.
[2016-08-20] MEDS ORDERED: SODIUM CHLORIDE 0.9% FLUSH 5 ML FLUSH FLUSH PRN (14:00)
[2016-08-20] MEDS ORDERED: NALOXONE HCL 0.4 MG/ML AMP IV PRN (14:00)
--- NOTE | 2016-08-20 14:21 | HHI.HP ---
[facility] Service Family Medicine Primary Care Physician Shan Quick MD Admission Diagnosis right lower lobe pneumonia/elevated INR Diagnoses: International Travel<30 Days: No Contact w/Intl Traveler<30days: No Known Affected Area: No History of Present Illness 55-year old female with history of CVA and DM here with complaint of worsening nausea and vomiting. In summary, patient seen in ED 08/09 for AMS. Discovered to have ARF. Initial blood culture was positive for MSSA in 07/28 tubes and urine culture grew E. coli. ID was consulted and recommended Zyvox for positive blood culture. Was also started on levaquin for UTI. Patient was discharged home on 5 day course of zyvox and levaquin on 08/14 after repeat blood cultures negative x2 days. Patient now c/o worsening nausea and vomiting since discharge. Has been afraid to eat since discharge. Nausea does not appear to be related to meals. No reports of bloating. No blood in emesis. No diarrhea. No blood in stool. Has not used anything for nausea. Denies any chest pain or SOB. No new numbness/weakness in extremities or changes in speech. On admission to the ER today, CT ab showed no acute process. CT did show persistent RLL infiltrate, which was unchanged from CT ab 08/09. CXR confirmed RLL infiltrate, which appeared improved compared to CXR 08/12. Patient was started on Cefepime and Azithromycin. Given Zofran for nausea. Also given 1 L bolus for JAMAL. Review of Systems Constitutional: DENIES: Fever, Chills Endocrine: DENIES: Polydipsia, Polyuria Eyes: DENIES: Blurred vision, Diplopia Ears, nose, mouth, throat: DENIES: Throat pain, Ear Pain, Epistaxis Respiratory: DENIES: Apneas, Cough, Snoring, Wheezing, Sputum production, Shortness of breath Cardiovascular: DENIES: Chest pain, Palpitations Gastrointestinal: COMPLAINS OF: Nausea, Vomiting, Anorexia, DENIES: Abdominal pain, Black stools, Bloody stools, Constipation, Diarrhea, Difficulty Swallowing Genitourinary: DENIES: Abnormal vaginal bleeding, Dysmenorrhea, Dyspareunia, Urgency Musculoskeletal: COMPLAINS OF: Back pain, DENIES: Joint pain, Muscle aches, Stiffness, Joint Swelling, Neck pain Integumentary: DENIES: Abnormal pigmentation, Pruritus, Rash, Nail changes, Breast masses Hematologic/lymphatic: COMPLAINS OF: Bruising, DENIES: Lymphadenopathy Immunologic/allergic: DENIES: Urticaria Neurologic: COMPLAINS OF: Localized weakness (Right-sided, chronic), DENIES: Abnormal gait, Headache, Paresthesias, Seizures, Speech Problems, Tremor, Poor Balance Psychiatric: DENIES: Anxiety, Confusion, Mood changes, Depression Past Family Social History Past Medical History CVA X3 lupus diabetes mellitus II, on metformin hypothyroidism, hypertension, arthritis, hyperlipidemia, depression/anxiety, restless leg syndrome, 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 Appears older than stated age. In NAD. SKIN: No rashes, ecchymoses or lesions. Cool and dry. HEAD: Atraumatic. Normocephalic. No temporal or scalp tenderness. EYES: Pupils equal round and reactive. Extraocular motions intact. No scleral icterus. No injection or drainage. ENT: Nose without bleeding, purulent drainage or septal hematoma. Throat without erythema, tonsillar hypertrophy or exudate. Uvula midline. Airway patent. Mucus membranes are dry. NECK: Trachea midline. No JVD or lymphadenopathy. Supple, nontender, no meningeal signs. CARDIOVASCULAR: Regular rate and rhythm without murmurs, gallops, or rubs. +2 peripheral pulses. 2-3s cap refill. RESPIRATORY: Non-labored. Faint rales at the bases. No other adventitious sounds. GASTROINTESTINAL: Abdomen soft, non-tender, nondistended. No hepato-splenomegaly , or palpable masses. No guarding. MUSCULOSKELETAL: Extremities without clubbing, cyanosis, or edema. No joint tenderness, effusion, or edema noted. No calf tenderness. Negative Homans sign bilaterally. NEUROLOGICAL: Awake and alert. Cranial nerves II through XII intact. 4/5 strength in right upper and lower extremities, otherwise sensation and motor grossly WNL. Intact JENNY and FNF. Negative Rhomberg. Negative Baninski. Normal speech. Laboratory Laboratory Tests Test 08/20/16 08/20/16 08/20/16 08/20/16 09:05 09:21 10:15 12:50 White Blood Count 12.1 Red Blood Count 3.60 Hemoglobin 10.3 Hematocrit 30.1 Mean Corpuscular Volume 83.8 Mean Corpuscular Hemoglobin 28.5 Mean Corpuscular Hemoglobin 34.1 Concent Red Cell Distribution Width 14.2 Platelet Count 297 Mean Platelet Volume 7.6 Neutrophils (%) (Auto) 69.4 Lymphocytes (%) (Auto) 23.6 Monocytes (%) (Auto) 4.7 Eosinophils (%) (Auto) 1.5 Basophils (%) (Auto) 0.8 Neutrophils # (Auto) 8.4 Lymphocytes # (Auto) 2.9 Monocytes # (Auto) 0.6 Eosinophils # (Auto) 0.2 Basophils # (Auto) 0.1 CBC Comment DIFF FINAL Differential Comment Sodium Level 136 Potassium Level 5.1 Chloride Level 103 Carbon Dioxide Level 25.9 Anion Gap 7 Blood Urea Nitrogen 28 Creatinine 2.22 Estimat Glomerular Filtration 23 Rate Random Glucose 63 Calcium Level 8.9 Total Bilirubin 0.2 Aspartate Amino Transf 21 (AST/SGOT) Alanine Aminotransferase 22 (ALT/SGPT) Alkaline Phosphatase 111 Total Protein 7.1 Albumin 2.9 Lipase 105 Prothrombin Time 49.8 Prothromb Time International 4.2 Ratio Activated Partial 44.9 Thromboplast Time Urine Color YELLOW Urine Turbidity CLEAR Urine pH 5.5 Urine Specific [place] 1.019 Urine Protein TRACE Urine Glucose (UA) NEG Urine Ketones NEG Urine Occult Blood NEG Urine Nitrite NEG Urine Bilirubin NEG Urine Urobilinogen LESS THAN 2.0 Urine Leukocyte Esterase NEG Urine RBC LESS THAN 1 Urine WBC 1 Urine Squamous Epithelial 1 Cells Urine Hyaline Casts 8 Urine Mucus FEW Microscopic Urinalysis Comment CULT NOT INDICATED Lactic Acid Level 0.6 Date/Time Procedure Status Source Growth 08/20/16 12:50 Aerobic Blood Culture Received Blood Peripheral Pending 08/20/16 12:50 Anaerobic Blood Culture Received Blood Peripheral Pending Result Diagram: 08/20/1690408/20/16904 Septic Shock Reassessment Heart: Regular rate and rhythm Lungs: Crackles Skin: Warm Capillary Refill: >2 seconds Assessment and Plan Assessment and Plan 55 year old female present with complaint of worsening nausea/vomiting. Code Status Full Code Discussed Condition With Will discuss with Dr. Hemphill Problem List: (1) Nausea & vomiting Status: Acute Plan: Appears to be a chronic issue. Per patient, has not responded well to zofran. -admit to inpatient -monitor vitals, per protocol -will keep on tele overnight, given concern for sepsis with ?RLL PNA and recent positive blood culture -monitor intake and output -will give decadron 8mg IV x1 today, then move to 4mg PO daily. -PO reglan with meals -IV zofran PRN -check repeat blood cx -interestingly her HbA1c was 5 this year on metformin monotherapy, but was as high as 13 in 2013 and she has h/o diabetic neuropathy. I will check gastric emptying study to see if sxs related to gastroparesis. -CT ab shows no acute process. Has adrenal mass that should be worked up as an outpatient. -We will plan to consult GI if patient does not respond to above therapy (2) JAMAL (acute kidney injury) Status: Acute Plan: Likely related to above. Uncertain baseline Cr. Lowest level this year was 1.6. WNL in 2014. ?h/o CKD related to DM. -s/p 1 L bolus in the ED -start on NS at 125 mls/hr -Encourage PO intake -Check chemistry in the morning -UA looks clear, cx pending (3) Right pulmonary infiltrate on CXR Status: Acute Plan: Likely atelectasis v resolving PNA. Doubt acute infection. -s/p cefepime and azithromycin x1 in the ED -hold off on further antibiotic therapy at this time as patient adequately treated for recent ?PNA and UTI. Restart cefepime and azithromycin if clinical deterioration. (4) Anemia Status: Acute Plan: Uncertain cause. Hb was 12.5 as early as 08/09. Hemoccult negative in the ED. -check occult blood with next stool -check iron studies -trend daily CBC -needs GI consult if reports of hematemesis, diarrhea, or uncontrolled N/V (5) Diabetes Status: Acute Plan: Recent A1c of 5. On metformin monotherapy. -hold metformin in hospital -ss insulin -cont home gabapentin (6) HTN (hypertension) Status: Acute Plan: On lisinopril at home. SBP up to the 160s in the ED. -hold lisinopril given JAMAL -PRN clonidine and hydralazine (7) Hyperlipidemia Status: Chronic Plan: Cont home statin (8) Hypothyroid Status: Acute Plan: History of hypothyroidism. Most recent TSH low at 0.08. Not currently on thyroid medication at home. -check TSH (9) Depression with anxiety Status: Acute Plan: cont home citalopram. Will add PRN ativan. (10) History of CVA (cerebrovascular accident) Status: Resolved Plan: On warfarin therapy. 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 INR 4.2 today, likely from recent antibiotics. -hold warfarin today. May consider restarting at lower dose tomorrow if within therapeutic range, to account for recent abx. (11) DEN (obstructive sleep apnea) Status: Acute Plan: Has home CPAP. Will provide PRN Bipap if unable to bring this. (12) Dietary counseling and surveillance Status: Acute Plan: Diet: NPO for gastric emptying study, then 1800 cons carb. Glucerna supp for low protein. Fluids: as above DVT ppx: on warfarin AM labs: CBC, CMP, iron studies GI ppx: zantac Physician Certification 2 Midnight Certification Type: Admission for Inpatient Services Order for Inpatient Services The services are ordered in accordance with Medicare regulations or non- Medicare payer requirements, as applicable. In the case of services not specified as inpatient-only, they are appropriately provided as inpatient services in accordance with the 2-midnight benchmark. Estimated LOS (days): 2 days is the estimated time the patient will need to remain in the hospital, assuming treatment plan goals are met and no additional complications. Post-Hospital Plan: Not yet determined Problem Qualifiers (1) Nausea & vomiting: Qualified Code: R11.2 - Intractable vomiting with nausea, unspecified vomiting type (2) Anemia: Qualified Code: D64.89 - Anemia due to other cause, not classified (3) Diabetes: Qualified Code: E11.42 - Type 2 diabetes mellitus with diabetic polyneuropathy , without long-term current use of insulin Peter Ng MD R3 Aug 20, 2016 14:21
[2016-08-20] MEDS ORDERED: cloNIDine HCL 0.1 MG TAB PO PRN (14:45)
[2016-08-20] MEDS ORDERED: ZOLPIDEM TARTRATE 5 MG TAB PO PRN (15:00)
[2016-08-20] MEDS: SODIUM CHLOR 0.9% 1000 ML INJ 1,000 ML IV SCH ×2 (15:00→21:50)
[2016-08-20] MEDS ORDERED: ONDANSETRON HCL 4 MG/2 ML VIAL IVP PRN (15:00)
[2016-08-20] MEDS ORDERED: ACETAMINOPHEN 325 MG TAB PO PRN (15:15)
[2016-08-20] MEDS ORDERED: DOCUSATE SODIUM 50 MG/SENNA 8.6 MG TAB PO PRN (15:15)
[2016-08-20] MEDS ORDERED: ACETAMINOPHEN/HYDROcodone 325 MG/5 MG TAB PO PRN (15:15)
[2016-08-20] MEDS: METOCLOPRAMIDE HCL 10 MG TAB PO SCH (15:28)
[2016-08-20] MEDS ORDERED: DEXTROSE 50% IN WATER 50 ML SYRINGE ONE (15:36)
[2016-08-20] MEDS: INSULIN ASPART SUPPLEMENTAL SCALE SQ SCH ×2 (15:40→21:00)
[2016-08-20] MEDS ORDERED: DEXAMETHASONE SOD PHOS 4 MG/ML VIAL IV PUSH ONE (16:00)
[2016-08-20] MEDS ORDERED: METOCLOPRAMIDE HCL 10 MG/2 ML VIAL ONE (16:50)
[2016-08-20] MEDS ORDERED: GABAPENTIN 400 MG CAP PO SCH (18:00)
--- NOTE | 2016-08-20 18:35 | RADRPT ---
EXAM DATE/TIME: 08/20/2016 15:55 [facility] COMPARISON: No previous studies available for comparison. INDICATIONS : Abdominal pain, nausea and vomiting for 2 days. DOSE: 1.1 mCi Tc99m Sulfur Colloid Labeled Whole egg PO MEDICATONS: 1.) 5 mg Reglan IV at minutes IMAGIN hrs MEDICAL HISTORY : Hypothyroidism. Lupus. SURGICAL HISTORY : Inguinal hernia repair. Tubal ligation. Cholecystectomy. Right ovary removed. ENCOUNTER: Initial ACUITY: 2 days PAIN SCALE: 3/10 LOCATION: Bilateral Abdomen. TECHNIQUE: Following the oral ingestion of radiotracer-labeled meal, dynamic sequential images in the CHARO projec tion were acquired with simultaneous computer acquisition. The data set was decay-corrected. FINDINGS: LAG PHASE: There is 45 minutes before onset of gastric emptying. EMPTYING: Gastric emptying kinetics are linear. The decay-corrected, back-extrapolated half-time of emptying i s 60 minutes. (Normal for this lab is 45- 90 minutes.) INTERVENTION: There is no change a post Reglan. CONCLUSION: Unremarkable study. Tiesha Quinteros MD on August 20, 2016 at 18:33 Board Certified Radiologist. This report was verified electronically.
[2016-08-20] MEDS: SODIUM CHLORIDE 0.9% FLUSH 5 ML FLUSH FLUSH SCH (21:00)
[2016-08-20] MEDS: GABAPENTIN 400 MG CAP PO SCH (21:37)
[2016-08-20] MEDS: GABAPENTIN 300 MG CAP PO SCH (21:37)
[2016-08-20] MEDS: PRAVASTATIN SOD 80 MG TAB PO SCH (21:37)
[2016-08-21] VITALS (10 sets, daily range): BP systolic 80–189; BP diastolic 50–98; PULSE 60–84; RESP 14–20; TEMP 97.3–97.9; O2SAT 95–99
[2016-08-21] MEDS: SODIUM CHLOR 0.9% 1000 ML INJ 1,000 ML IV SCH (05:27)
[2016-08-21] MEDS: INSULIN ASPART SUPPLEMENTAL SCALE SQ SCH ×3 (05:27→17:40)
[2016-08-21] MEDS: hydrALAZINE HCL 10 MG TAB PO PRN (05:34)
[2016-08-21 07:25] LABS: AUTOMATED NEUTROPHIL # 6.4 TH/MM3 (1.8-7.7); BASOPHIL % 0.2 % (0.0-2.0); HEMATOCRIT 30.3 % (35.0-46.0); HEMO FLAGS DIFF FINAL; LYMPH % 20.1 % (9.0-44.0); LYMPHOCYTE # 1.7 TH/MM3 (1.0-4.8); MEAN CELL VOLUME 83.1 FL (80.0-100.0); MEAN CORPUSCULAR HEMOGLOBIN 28.8 PG (27.0-34.0); MEAN CORPUSCULAR HGB CONC 34.7 % (32.0-36.0); MONO % 3.4 % (0.0-8.0); NEUT % 76.3 % (16.0-70.0); PLATELET COUNT 279 TH/MM3 (150-450); RED BLOOD COUNT 3.65 MIL/MM3 (4.00-5.30); RED CELL DISTRIBUTION WIDTH 14.5 % (11.6-17.2); WHITE BLOOD COUNT 8.4 TH/MM3 (4.0-11.0)
[2016-08-21 07:34] LABS: ALKALINE PHOSPHATASE 103 U/L (45-117); ALT (GPT) 19 U/L (10-53); ANION GAP 8 MEQ/L (5-15); AST (GOT) 15 U/L (15-37); BICARBONATE 25.2 MEQ/L (21.0-32.0); BLOOD UREA NITROGEN 22 MG/DL (7-18); CHLORIDE 104 MEQ/L (98-107); GLOMERULAR FILTRATION RATE 33 ML/MIN (>89); POTASSIUM 4.7 MEQ/L (3.5-5.1); SODIUM (NA) 137 MEQ/L (136-145); TOTAL BILIRUBIN ADULT 0.3 MG/DL (0.2-1.0)
[2016-08-21] MEDS: GABAPENTIN 300 MG CAP PO SCH ×2 (08:02→21:00)
[2016-08-21] MEDS: GABAPENTIN 400 MG CAP PO SCH ×2 (08:03→21:00)
[2016-08-21] MEDS: METOCLOPRAMIDE HCL 10 MG TAB PO SCH ×3 (08:04→17:39)
[2016-08-21] MEDS: ASPIRIN EC 81 MG TABEC PO SCH (08:04)
[2016-08-21] MEDS: risperiDONE 1 MG TAB PO SCH (08:05)
[2016-08-21] MEDS: SODIUM CHLORIDE 0.9% FLUSH 5 ML FLUSH FLUSH SCH ×2 (08:06→21:34)
[2016-08-21] MEDS ORDERED: DEXAMETHASONE 4 MG TAB PO SCH (09:00)
[2016-08-21] MEDS ORDERED: CITALOPRAM HYDROBROMIDE 40 MG TAB PO SCH (09:00)
[2016-08-21] MEDS ORDERED: WARFARIN SOD 5 MG TAB PO SCH (09:00)
[2016-08-21 10:34] LABS: PROTHROMBIN TIME - PATIENT 46.8 SEC (9.8-11.6)
--- NOTE | 2016-08-21 12:28 | PD.CONS ---
HPI History of Present Illness This is a 55 year old female with history of CVA and DM here with complaint of worsening nausea and vomiting that started yesterday. Patient had recent admission to the facility on 08/09- 08/14 for AMS, and was found to have ARF, Initial blood culture was positive for MSSA and urine culture grew E. coli. Patient was discharged home on 5 day course of Zyvox and Levaquin after repeat blood cultures negative x2 days. Patient is very bad historian, not able to answer any questions, hardly was able to keep eyes open during the exam. Daughter in the room who states her hasn't been eating much, no reported hematemesis, diarrhea, abdominal pain or blood in stools. CT of abd/plevis, no acute findings, GE negative. According to medical reports, she had colonoscopy in 2013 and that showed polyps. (Nery Forman) PFSH Past Medical History CVA X3 lupus diabetes mellitus II, on metformin hypothyroidism, hypertension, arthritis, hyperlipidemia, depression/anxiety, restless leg syndrome, DEN Rotator cuff tear: Fall 2014 Past Surgical History Cholecystectomy 1996 Right oophero salpingectomy 1996 (Nery Forman) Coded Allergies: Penicillin (Verified Allergy, Severe, Rash, 08/20/16) Medications Current Medications Medications (Trade) Dose Ordered Sig/Anabela Route Start Time Stop Time Status Last Admin (NS Flush) 2 ml UNSCH PRN FLUSH 08/20/16 14:00 (NS Flush) 2 ml BID FLUSH 08/20/16 21:00 (Zofran Inj) 4 mg Q6H PRN IVP 08/20/16 15:00 (Ambien) 5 mg HS PRN PO 08/20/16 15:00 (Narcan Inj) 0.4 mg UNSCH PRN IV 08/20/16 14:00 Metoclopramide HCl 10 mg 10 mg TIDAC PO 08/20/16 17:00 08/21/16 11:17 (NS 1000 ml Inj) 1,000 ml @ 125 mls/hr Q8H IV 08/20/16 15:00 08/21/16 05:27 (Ecotrin Ec) 81 mg DAILY PO 08/21/16 09:00 08/21/16 08:04 (CeleXA) 40 mg DAILY PO 08/21/16 09:00 08/21/16 08:04 (risperDAL) 2 mg DAILY PO 08/21/16 09:00 08/21/16 08:05 (Coumadin) 5 mg DAILY PO 08/21/16 09:00 UNV (Pravachol) 80 mg HS PO 08/20/16 21:00 08/20/16 21:37 (Catapres) 0.1 mg Q6H PRN PO 08/20/16 14:45 (Apresoline) 10 mg Q6HR PRN PO 08/20/16 14:45 08/21/16 05:34 (Ativan) 1 mg Q8H PRN PO 08/20/16 15:00 (Neurontin) 300 mg BID PO 08/20/16 21:00 08/21/16 08:02 (Neurontin) 400 mg BID PO 08/20/16 21:00 08/21/16 08:03 (Skye-Colace) 1 tab DAILY PRN PO 08/20/16 15:15 (Tylenol) 325 mg Q4H PRN PO 08/20/16 15:15 (Neodesha 5-325 Mg) 1 tab Q4H PRN PO 08/20/16 15:15 (Neodesha 5-325 Mg) 2 tab Q4H PRN PO 08/20/16 15:15 Family History Non contributory Social History Tobacco: Denies Alcohol: Denies Drugs: Denies (Nery Forman) Review of Systems Constitutional: DENIES: Fever, Chills Endocrine: DENIES: Polyuria Eyes: DENIES: Double Vision Ears, nose, mouth, throat: DENIES: Hoarseness Respiratory: DENIES: Shortness of breath Cardiovascular: DENIES: Lower Extremity Edema Gastrointestinal: COMPLAINS OF: Nausea, Vomiting, DENIES: Abdominal pain, Black stools, Bloody stools, Constipation, Diarrhea, Difficulty Swallowing, Anorexia, Odynophagia, Swelling of Abdomen, Heartburn, Hematemesis Genitourinary: DENIES: Hematuria Musculoskeletal: DENIES: Neck pain Integumentary: DENIES: Jaundice Hematologic/lymphatic: DENIES: Bruising Immunologic/allergic: DENIES: Eczema Neurologic: DENIES: Abnormal gait Psychiatric: DENIES: Anxiety (Nery Forman) GI Exam Vitals I&O Vital Signs Date Time Temp Pulse Resp B/P Pulse Ox O2 Delivery O2 Flow Rate FiO2 08/21/16 08:05 97.8 84 18 162/98 97 08/21/16 08:01 81 08/21/16 04:00 97.9 78 18 189/73 98 08/20/16 22:25 98 08/20/16 21:43 79 08/20/16 20:30 97.7 72 18 170/91 96 08/20/16 18:25 97.8 92 18 167/84 99 08/20/16 15:30 98.0 76 17 150/81 98 Room Air 08/20/16 12:50 98.0 69 17 153/85 98 Room Air I/O 08/20/16 08/20/16 08/20/16 08/21/16 08/21/16 08/21/16 07:00 15:00 23:00 07:00 15:00 23:00 Intake Total 1160 ml 1178 ml Balance 1160 ml 1178 ml Intake Oral 240 ml 180 ml IV Total 920 ml 998 ml # Voids 1 1 Imaging Last Impressions Chest X-Ray 08/20/16 1244 Signed Impressions: Service Date/Time: Saturday, August 20, 2016 12:56 - CONCLUSION: Improvement in the right lower lobe infiltrate. Residual scar/atelectasis within the left lung base. Jordan Borges Jr., MD Abdomen/Pelvis CT 08/20/16 1049 Signed Impressions: Service Date/Time: Saturday, August 20, 2016 11:28 - CONCLUSION: Essentially stable scan of the abdomen and pelvis other than apparent removal of a Cardoso catheter with a small amount residual air anteriorly in the urinary bladder. No acute intra-abdominal or pelvic process. The right lower lobe parenchymal infiltrate has progressed to a more rounded appearance and cicatrization Long Garber MD Gastric Emptying Nuclear Medicine 08/20/16 0000 Signed Impressions: Service Date/Time: Saturday, August 20, 2016 15:55 - CONCLUSION: Unremarkable study. Tiesha Quinteros MD Laboratory Test 08/20/16 08/21/16 08/21/16 12:50 06:19 09:30 Lactic Acid Level 0.6 mmol/L White Blood Count 8.4 TH/MM3 Red Blood Count 3.65 MIL/MM3 Hemoglobin 10.5 GM/DL Hematocrit 30.3 % Mean Corpuscular Volume 83.1 FL Mean Corpuscular Hemoglobin 28.8 PG Mean Corpuscular Hemoglobin 34.7 % Concent Red Cell Distribution Width 14.5 % Platelet Count 279 TH/MM3 Mean Platelet Volume 7.1 FL Neutrophils (%) (Auto) 76.3 % Lymphocytes (%) (Auto) 20.1 % Monocytes (%) (Auto) 3.4 % Eosinophils (%) (Auto) 0.0 % Basophils (%) (Auto) 0.2 % Neutrophils # (Auto) 6.4 TH/MM3 Lymphocytes # (Auto) 1.7 TH/MM3 Monocytes # (Auto) 0.3 TH/MM3 Eosinophils # (Auto) 0.0 TH/MM3 Basophils # (Auto) 0.0 TH/MM3 CBC Comment DIFF FINAL Differential Comment Sodium Level 137 MEQ/L Potassium Level 4.7 MEQ/L Chloride Level 104 MEQ/L Carbon Dioxide Level 25.2 MEQ/L Anion Gap 8 MEQ/L Blood Urea Nitrogen 22 MG/DL Creatinine 1.61 MG/DL Estimat Glomerular Filtration 33 ML/MIN Rate Random Glucose 69 MG/DL Calcium Level 8.4 MG/DL Total Bilirubin 0.3 MG/DL Aspartate Amino Transf 15 U/L (AST/SGOT) Alanine Aminotransferase 19 U/L (ALT/SGPT) Alkaline Phosphatase 103 U/L Total Protein 6.8 GM/DL Albumin 2.8 GM/DL Prothrombin Time 46.8 SEC Prothromb Time International 4.0 RATIO Ratio Date/Time Procedure Status Source Growth 08/21/16 10:00 Stool Occult Blood (JANAE) Received Stool Stool Pending 08/20/16 12:50 Aerobic Blood Culture - Preliminary Resulted Blood Peripheral NO GROWTH IN 1 DAY 08/20/16 12:50 Anaerobic Blood Culture - Preliminary Resulted Blood Peripheral NO GROWTH IN 1 DAY Physical Examination HEENT: normocephalic; atraumatic; no jaundice. Throat is clear. NECK: Neck is supple, no JVD, no lymphadenopathy. CHEST: Rale at the bases CARDIAC: Regular rate and rhythm with no murmur gallop or rubs. ABDOMEN: Soft, nondistended, nontender; no hepatosplenomegaly; bowel sounds are present in all four quadrants. EXTREMITIES: No clubbing, cyanosis, or edema. SKIN: Normal; no rash; no jaundice. MICROWAVE SUPERVISOR: Lethargic, hard to arouse (Amawi,Khawla DEHYDRATOR TENDER) Assessment and Plan Plan - recurrent N/V- Patient had recent admission to the facility on 08/09- 08/14 for AMS, and was found to have ARF, Initial blood culture was positive for MSSA and urine culture grew E. coli. Patient was discharged home on 5 day course of Zyvox and Levaquin after repeat blood cultures negative x2 days. Patient is very bad historian, not able to answer any questions, hardly was able to keep eyes open during the exam. Daughter in the room who states her hasn't been eating much, no reported hematemesis, diarrhea, abdominal pain or blood in stools. CT of abd/plevis, no acute findings, GE negative. According to medical reports, she had colonoscopy in 2013 and that showed polyps. Lipase, LFTs normal - Anemia- no active bleeding reported, hgb is 10.5 was 12.5 at previous admission, stools Hemoccult (-) - ARF- could be secondary to above - Right pulmonary infiltrate on CXR- with hx of recent PNA, this is improving - DM, HTN, hx of CVA ( on Coumadin), per attending Plan: - Heart healthy diet - Will need EGD/colonoscopy evaluation, however, will need Coumadin to be on hold - Cont. supportive care - Monitor hh - cont. Reglan - Patient seen and examined by Dr. Connell and myself and this note is written on her behalf. (Nery Forman) Physician Comments seen, examined at this time being transferred to ICU for decreased level of conciseness, apparently gave her a pain pill -unclear at this time, she was able to answer my questions no melena, hematemesis , vomiting at this point abnormal ekg as per medical team we will recheck hb insert ngt if further n,v (Lynette Connell MD) Nery Forman Aug 21, 2016 12:28 Lynette Connell MD Aug 21, 2016 14:09
--- NOTE | 2016-08-21 13:28 | HHI.HP ---
[facility] Service Family Medicine Primary Care Physician Shan Quick MD Admission Diagnosis right lower lobe pneumonia/elevated INR Diagnoses: (1) Nausea & vomiting Diagnosis: Principal (2) JAMAL (acute kidney injury) Diagnosis: Principal (3) Right pulmonary infiltrate on CXR Diagnosis: Principal (4) Anemia Diagnosis: Principal (5) Diabetes Diagnosis: Principal (6) HTN (hypertension) Diagnosis: Principal (7) Hyperlipidemia Diagnosis: Principal (8) Hypothyroid Diagnosis: Principal (9) Depression with anxiety Diagnosis: Principal (10) History of CVA (cerebrovascular accident) Diagnosis: Principal (11) DEN (obstructive sleep apnea) Diagnosis: Principal (12) Dietary counseling and surveillance Diagnosis: Principal International Travel<30 Days: No Contact w/Intl Traveler<30days: No Known Affected Area: No History of Present Illness Ms Velasquez is a 55-year old female with a history of CVA and DM who presented with complaint of worsening nausea and vomiting. In summary, patient seen in ED 08/09 for AMS. Discovered to have ARF. Initial blood culture was positive for MSSA in 07/28 tubes and urine culture grew E. coli. ID was consulted and recommended Zyvox for positive blood culture. Was also started on levaquin for UTI. Patient was discharged home on 5 day course of zyvox and levaquin on after repeat blood cultures negative x2 days. Patient now c/o worsening nausea and vomiting since discharge. Has been afraid to eat since discharge. Nausea does not appear to be related to meals. No reports of bloating. No blood in emesis. No diarrhea. No blood in stool. Has not used anything for nausea. Denies any chest pain or SOB. No new numbness/weakness in extremities or changes in speech. On admission to the ER, CT ab showed no acute process. CT did show persistent RLL infiltrate, which was unchanged from CT ab 08/09. CXR confirmed RLL infiltrate, which appeared improved compared to CXR 08/12. Patient was started on Cefepime and Azithromycin. Given Zofran for nausea. Also given 1 L bolus for JAMAL. Unfortunately, Ms Velasquez is a very poor historian with an impaired memory ever since she had her CVA about 2 years ago. According to her daughter, who was in the room with her, she has had problems with her eating for years. She has lost a significant amount of weight. She has nausea and vomiting that is difficult to predict or know what causes it as the pt cannot explain well what is happening secondary to her poor memory and cognitive function. Her family is able to give the only history. It is unclear if she has some diarrhea as her daughter states she believes her stools are always loose. There also was a complaint by her daughter that she vomited up "dark brown stuff that looked like it could be old blood" however it was never heme tested. Evidently, she is very weak and gets around mainly with a wheelchair but sometimes with a walker. According to her daughter, rehab is not the choice of her family or the pt as Ms Velasquez is afraid and prefers to be at home. This am, pt denies any recent vomiting, pain or diarrhea. Review of Systems ROS Limitations: Poor Historian, Other (CVA) Constitutional: COMPLAINS OF: Weight loss, Change in appetite Endocrine: DENIES: Polydipsia, Polyphagia Eyes: DENIES: Vision loss Ears, nose, mouth, throat: DENIES: Throat pain, Sinus Pain Respiratory: DENIES: Cough, Hemoptysis, Sputum production Cardiovascular: DENIES: Chest pain, Lower Extremity Edema Gastrointestinal: COMPLAINS OF: Diarrhea, Nausea, Vomiting, Anorexia, DENIES: Abdominal pain, Black stools, Bloody stools, Difficulty Swallowing Musculoskeletal: DENIES: Joint pain Hematologic/lymphatic: DENIES: Bruising Neurologic: COMPLAINS OF: Abnormal gait, Localized weakness, Poor Balance Psychiatric: DENIES: Delusions Other Constitutional: DENIES: Fever, Chills Endocrine: DENIES: Polydipsia, Polyuria Eyes: DENIES: Blurred vision, Diplopia Ears, nose, mouth, throat: DENIES: Throat pain, Ear Pain, Epistaxis Respiratory: DENIES: Apneas, Cough, Snoring, Wheezing, Sputum production, Shortness of breath Cardiovascular: DENIES: Chest pain, Palpitations Gastrointestinal: COMPLAINS OF: Nausea, Vomiting, Anorexia, DENIES: Abdominal pain, Black stools, Bloody stools, Constipation, Diarrhea, Difficulty Swallowing Genitourinary: DENIES: Abnormal vaginal bleeding, Dysmenorrhea, Dyspareunia, Urgency Musculoskeletal: COMPLAINS OF: Back pain, DENIES: Joint pain, Muscle aches, Stiffness, Joint Swelling, Neck pain Integumentary: DENIES: Abnormal pigmentation, Pruritus, Rash, Nail changes, Breast masses Hematologic/lymphatic: COMPLAINS OF: Bruising, DENIES: Lymphadenopathy Immunologic/allergic: DENIES: Urticaria Neurologic: COMPLAINS OF: Localized weakness (Right-sided, chronic), DENIES: Abnormal gait, Headache, Paresthesias, Seizures, Speech Problems, Tremor, Poor Balance Psychiatric: DENIES: Anxiety, Confusion, Mood changes, Depression Past Family Social History Past Medical History CVA X3 lupus diabetes mellitus II, on metformin hypothyroidism, hypertension, arthritis, hyperlipidemia, depression/anxiety, restless leg syndrome, DEN Rotator cuff tear: Fall 2014 biometrics head: 3 pregnancies 1.) term delivery, no complications 2.) term, no complications 3.) term, no complications All vaginal deliveries Menopause age 51 No history of breast cancer Does not feel breast lumps No family history of breast, ovarian, uterine cancer No vaginal discharge or bleeding currently Dr. 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 Preventative: Cervical cancer screening: Jun 2016, normal Mammogram: 2012, need to repeat, ordered 05/19/16 but not done yet Immunizations: Influenza: Received for Zoster: Age 59 Pneumovax: believes she had it in 2013 Colonoscopy 2013: Polyps Physical Exam Vital Signs Vital Signs Date Time Temp Pulse Resp B/P Pulse Ox O2 Delivery O2 Flow Rate FiO2 08/21/16 12:05 97.6 76 18 97/58 95 08/21/16 10:20 98 21 08/21/16 08:05 97.8 84 18 162/98 97 08/21/16 08:01 81 08/21/16 04:00 97.9 78 18 189/73 98 08/20/16 22:25 98 08/20/16 21:43 79 08/20/16 20:30 97.7 72 18 170/91 96 08/20/16 18:25 97.8 92 18 167/84 99 08/20/16 15:30 98.0 76 17 150/81 98 Room Air Physical Exam GENERAL: pale, Ill-appearing, middle aged female. Appears older than stated age. In NAD. SKIN: No rashes, ecchymoses or lesions. Cool and dry. HEAD: Atraumatic. Normocephalic. EYES: Pupils equal round and reactive. Extraocular motions intact. No scleral icterus. No injection or drainage. reports no change in vision ENT: Nose without bleeding, purulent drainage or septal hematoma. Throat without erythema, tonsillar hypertrophy or exudate. Uvula midline. Airway patent. Mucus membranes are dry. NECK: Trachea midline. No JVD or lymphadenopathy. Supple, nontender, no meningeal signs. CARDIOVASCULAR: Regular rate and rhythm without murmurs, gallops, or rubs. +2 peripheral pulses. 2-3s cap refill. RESPIRATORY: Non-labored. Faint rales at the bases. No other adventitious sounds. moving air well GASTROINTESTINAL: Abdomen soft, non-tender, nondistended. No hepato-splenomegaly , or palpable masses. No guarding. MUSCULOSKELETAL: Extremities without clubbing, cyanosis, or edema. No joint tenderness, effusion, or edema noted. No calf tenderness. Negative Homans sign bilaterally. NEUROLOGICAL: Awake and alert. Cranial nerves II through XII intact. 4/5 strength in right upper and lower extremities, otherwise sensation and motor grossly WNL. Intact JENNY and FNF. Negative Rhomberg. Negative Baninski. Normal speech. follows commands Laboratory Laboratory Tests Test 08/21/16 08/21/16 06:19 09:30 White Blood Count 8.4 Red Blood Count 3.65 Hemoglobin 10.5 Hematocrit 30.3 Mean Corpuscular Volume 83.1 Mean Corpuscular Hemoglobin 28.8 Mean Corpuscular Hemoglobin 34.7 Concent Red Cell Distribution Width 14.5 Platelet Count 279 Mean Platelet Volume 7.1 Neutrophils (%) (Auto) 76.3 Lymphocytes (%) (Auto) 20.1 Monocytes (%) (Auto) 3.4 Eosinophils (%) (Auto) 0.0 Basophils (%) (Auto) 0.2 Neutrophils # (Auto) 6.4 Lymphocytes # (Auto) 1.7 Monocytes # (Auto) 0.3 Eosinophils # (Auto) 0.0 Basophils # (Auto) 0.0 CBC Comment DIFF FINAL Differential Comment Sodium Level 137 Potassium Level 4.7 Chloride Level 104 Carbon Dioxide Level 25.2 Anion Gap 8 Blood Urea Nitrogen 22 Creatinine 1.61 Estimat Glomerular Filtration 33 Rate Random Glucose 69 Calcium Level 8.4 Total Bilirubin 0.3 Aspartate Amino Transf 15 (AST/SGOT) Alanine Aminotransferase 19 (ALT/SGPT) Alkaline Phosphatase 103 Total Protein 6.8 Albumin 2.8 Prothrombin Time 46.8 Prothromb Time International 4.0 Ratio Date/Time Procedure Status Source Growth 08/21/16 10:00 Stool Occult Blood (JANAE) Received Stool Stool Pending 08/20/16 12:50 Aerobic Blood Culture - Preliminary Resulted Blood Peripheral NO GROWTH IN 1 DAY 08/20/16 12:50 Anaerobic Blood Culture - Preliminary Resulted Blood Peripheral NO GROWTH IN 1 DAY Result Diagram: 08/21/1661808/21/16618 Assessment and Plan Assessment and Plan 55 year old female present with complaint of worsening nausea/vomiting. Problem List: (1) Nausea & vomiting Status: Acute Plan: Appears to be a chronic issue. Per patient, has not responded well to zofran. -admitted to inpatient -monitor vitals, per protocol -will keep on tele , given concern for sepsis with ?RLL PNA and recent positive blood culture -monitor intake and output -will give decadron 8mg IV x1 today, then move to 4mg PO daily. -PO reglan with meals -IV zofran PRN -check repeat blood cx -interestingly her HbA1c was 5 this year on metformin monotherapy, but was as high as 13 in 2013 and she has h/o diabetic neuropathy. I will check gastric emptying study to see if sxs related to gastroparesis. she3 is not eating very well per her daughter and has lost weight so that probably helped her DM -CT ab shows no acute process. Has adrenal mass that should be worked up as an outpatient. -consulted GI as patient has been back to the hospital twice for similar issues and has poor po intake and dehydration from this. Her INR is high and her coumadin is being held. GI wants her INR to be lower prior to any endoscopy. Can clarify with them at what level they will scope. Do not want to give Vitamin K unless it's an emergency. (2) JAMAL (acute kidney injury) Status: Acute Plan: Likely related to above. Uncertain baseline Cr. Lowest level this year was 1.6. WNL in 2014. ?h/o CKD related to DM. -s/p 1 L bolus in the ED -start on NS at 125 mls/hr -Encourage PO intake -Check chemistry in the morning -UA looks clear, cx pending -concerned that she has poor po intake per her daughter (3) Right pulmonary infiltrate on CXR Status: Acute Plan: Likely atelectasis v resolving PNA. Doubt acute infection. -s/p cefepime and azithromycin x1 in the ED -hold off on further antibiotic therapy at this time as patient adequately treated for recent ?PNA and UTI. Restart cefepime and azithromycin if clinical deterioration. (4) Anemia Status: Acute Plan: Uncertain cause. Hb was 12.5 as early as 08/09. Hemoccult negative in the ED. -check occult blood with next stool -check iron studies -trend daily CBC (5) Diabetes Status: Acute Plan: Recent A1c of 5. On metformin monotherapy. -hold metformin in hospital -ss insulin -cont home gabapentin (6) HTN (hypertension) Status: Acute Plan: On lisinopril at home. SBP up to the 160s in the ED. -hold lisinopril given JAMAL -PRN clonidine and hydralazine (7) Hyperlipidemia Status: Chronic Plan: Cont home statin (8) Hypothyroid Status: Acute Plan: History of hypothyroidism. Most recent TSH low at 0.08. Not currently on thyroid medication at home. -check TSH (9) Depression with anxiety Status: Acute Plan: cont home citalopram. Will add PRN ativan. (10) History of CVA (cerebrovascular accident) Status: Resolved Plan: On warfarin therapy. 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 INR 4.2 today, likely from recent antibiotics. -hold warfarin today.was held yesterday as well. can hold for now as she needs a lower level to get endoscopy can consider bridging with lovenox for procedure as she is higher risk for clots with her prior history of CVAs. Bridging is not needed for the average pt with a fib but may be warranted in her case (11) DEN (obstructive sleep apnea) Status: Acute Plan: Has home CPAP. Will provide PRN Bipap if unable to bring this. (12) Dietary counseling and surveillance Status: Acute Plan: Diet: NPO for gastric emptying study, then 1800 cons carb. Glucerna supp for low protein. Fluids: as above DVT ppx: on warfarin AM labs: CBC, CMP, iron studies GI ppx: zantac Physician Certification 2 Midnight Certification Type: Admission for Inpatient Services Order for Inpatient Services The services are ordered in accordance with Medicare regulations or non- Medicare payer requirements, as applicable. In the case of services not specified as inpatient-only, they are appropriately provided as inpatient services in accordance with the 2-midnight benchmark. Estimated LOS (days): 3 3 days is the estimated time the patient will need to remain in the hospital, assuming treatment plan goals are met and no additional complications. Post-Hospital Plan: Not yet determined Problem Qualifiers (1) Nausea & vomiting: Qualified Code: R11.2 - Intractable vomiting with nausea, unspecified vomiting type (2) Anemia: Qualified Code: D64.89 - Anemia due to other cause, not classified (3) Diabetes: Qualified Code: E11.42 - Type 2 diabetes mellitus with diabetic polyneuropathy , without long-term current use of insulin (4) HTN (hypertension): Qualified Code: I10 - Essential hypertension Pauly Hemphill MD Aug 21, 2016 13:28
[2016-08-21] MEDS ORDERED: FLUMAZENIL 0.5 MG/5 ML VIAL ONE (13:52)
[2016-08-21 13:58] LABS: BLOOD GAS BASE EXCESS -0.9 mmol/L (-2-2); BLOOD GAS HCO3 24 mmol/L (22-26); BLOOD GAS METHEMOGLOBIN 1.1 % (0-2); BLOOD GAS O2 HGB SATURATION 94 % (90-100); BLOOD GAS OXYGEN CONTENT 10.8 Vol % (12.0-20.0); BLOOD GAS PCO2 40 mmHg (38-42); BLOOD GAS PO2 82 mmHg (61-120); BLOOD GAS TOTAL HGB 8.1 G/DL (12.0-16.0); CRITICAL VALUE NO; DRAW SITE LT RADIAL; FIO2 21 %; NUMBER OF ARTERIAL PUNCTURES 1; STAT YES; TEMP CORR TO 98.6; ULNAR PULSE PRESENT
--- NOTE | 2016-08-21 14:30 | HHI.PR ---
Addendum to Inpatient Note Addendum Reason: Additional Documentation Additional Information Subjective: Received call from nurse as patient was hypotensive and had altered mental status. Halicat was called at the time of onset. Nurse reports that patient was asymptomatic and was ordering lunch and when she came back to check on her she was nonresponsive except to sternal rub. There is concern for possible medication given by the but denies this claim. Initial bedside glucose at that time was 101. There was also reported 14 beats of V. tach on cardiac telemetry. Once I arrived at bedside, patient's BP was 80s/50s and she was in sinus rhythm. Patient continued to be altered. Objective: VS: BP 80/50s. Rate 70s. Sinus rhythm. Quick review of bedside EKG showed prolonged QT but no episodes of V. tach. Gen.: Patient appears pale and altered. Is able to follow commands intermittently. Responsive to firm sternal rub. Respiratory: Anterior lung pandya clear to auscultation Cardiac: Regular rate and rhythm without obvious murmurs, rubs. Assessment and plan 55-year-old female with a PMH significant for CVA and DM. Admitted for nausea & vomiting. Prior to this hospitalization, patient was recently treated for pneumonia. Etiology unclear but suspected to be due to stroke. Pt is already subtherapeutic on Coumadin -Bolus 1 L -CBC, CMP, ammonia, magnesium, blood cultures -CXR unremarkable did show some atelectasis -ABG unremarkable with a pH of 7.39/CO2 40/O2 82 -Critical care consulted who recommended the following * Head CT * Cardiology consult with echo * Neurology consult * Troponin, CPK, phosphorus, uds dw Dr. Beltre, Dr. Ng, and Alexandra Mendoza MD R2 Aug 21, 2016 14:30
--- NOTE | 2016-08-21 14:50 | RADRPT ---
EXAM DATE/TIME: 08/21/2016 14:28 [facility] COMPARISON: CHEST SINGLE AP, August 20, 2016, 12:56. INDICATIONS : Respiratory failure. Post halicat. MEDICAL HISTORY : Hypertension. Diabetes mellitus type II. Hypothyroidism. Lupus. SURGICAL HISTORY : Cholecystectomy. Loop recorder. ENCOUNTER: Subsequent ACUITY: 3 days PAIN SCORE: Non-responsive. LOCATION: Bilateral chest FINDINGS: A single view of the chest demonstrates the lungs to be symmetrically aerated without evidence of mas s, infiltrate or effusion. There is mild right lower lung atelectasis. The cardiomediastinal contours are unremarkable. Osseous structures are intact. CONCLUSION: Mild right lower lung atelectasis. Otherwise lungs are grossly clear. Julius Garcia MD on August 21, 2016 at 14:48 Board Certified Radiologist. This report was verified electronically.
[2016-08-21] MEDS ORDERED: RESP: ALBUTEROL 2.5 MG/IPRATROPIUM 0.5 MG NEB (PRN) NEB (15:30)
[2016-08-21] MEDS ORDERED: SODIUM CHLOR 0.9% 1000 ML INJ 1,000 ML IV ONE (15:30)
--- NOTE | 2016-08-21 15:58 | MB ---
cc: ANIBAL FARMER M.D. DATE OF CONSULTATION: 08/21/2016. HISTORY OF PRESENT ILLNESS: The patient is a 55-year-old female with past medical history of CVA x3, PFO with [id number]-jk-mizy shunt on anticoagulation, history of hypertension, hypothyroidism, diabetes mellitus, hyperlipidemia and arthritis. She was admitted to [facility] on August 20 with intractable nausea and vomiting. On arrival to the emergency department, the patient was in renal failure with a BUN of 28 and creatinine 2.2. In addition, she had mild leukocytosis with a WBC of 12.1. She was recently discharged from [facility] after she was admitted back on August 09 for altered mental status and was found to have renal failure as well in addition to MSSA bacteremia and E-coli and a urinary tract infection with a urine culture growing E-coli. She was discharged home on a five day course of Zyvox and Levaquin after repeat blood cultures were negative. The patient is a poor historian. Most of the history was obtained from reviewing the medical records. She had a CT abdomen and pelvis on arrival, which showed no acute intra-abdominal or pelvic process. She was initially admitted to the medical floor and a HaliCAT was called as the patient was found hypotensive with a systolic blood pressure in the 80s and was only responsive to sternal rub. ABG was performed at 1352, which showed a pH of 7.39, CO2 40, pAO2 82, bicarb 24, saturation of 94%. Chest x-ray from this afternoon showed mild right lower lung atelectasis, otherwise lungs are grossly clear. She was given a one liter bolus of normal saline en route and was transferred to [facility] for close observation. When seen in the ICU, the patient appears a little bit more responsive and more awake. A stat CT scan of the brain has been ordered. Her laboratory data from today showed improvement of her renal function with a creatinine of 1.61 from 2.2 and her hemoglobin is stable at 10.5. The patient is coagulopathic with an INR of 4.0 from this morning. Critical care medicine was consulted for critical care management. PAST MEDICAL HISTORY: The past medical history significant for: 1. CVA x3. 2. A patent foramen ovale with bbfwg-ld-pfox shunt. 3. Diabetes mellitus. 4. History of lupus. 5. Hypothyroidism. 6. Hypertension. 7. Arthritis. 8. Hyperlipidemia. 9. Anxiety / depression. 10. Restless leg syndrome. 11. Obstructive sleep apnea. PAST SURGICAL HISTORY: 1. Previous cholecystectomy in 1996. 2. Previous salpingo-oophorectomy in 1996. ALLERGIES: PENICILLIN. CURRENT MEDICATIONS: Include: 1. Aspirin. 2. Coumadin. 3. Risperdal. 4. Pravachol. 5. Neurontin. 6. Reglan. FAMILY HISTORY: Noncontributory . SOCIAL HISTORY: Nonsmoker and non-drinker. REVIEW OF SYSTEMS: The review of systems is as per the history of present illness, and the rest of the review of systems is limited as the patient is a poor historian. PHYSICAL EXAMINATION: GENERAL: A 55-year-old female lying in bed in no acute respiratory distress. VITAL SIGNS: Temperature 97.6, pulse of 68, blood pressure initially 88/54 and currently 111/67. Saturation 100% on two liters oxygen. HEAD, EYES, EARS, NOSE, THROAT: Normocephalic and atraumatic. Pupils equal, round and reactive to light and accommodation. Extraocular muscles intact. Conjunctivae are pink. Nonicteric sclerae. Oral mucosa within normal limits. NECK: The neck is supple. No jugular venous distention, adenopathy or thyromegaly. Trachea in the midline. CARDIOVASCULAR: Regular rate and rhythm. Normal S1 and S2. No murmurs, rubs or gallops noted. PULMONARY: Bilateral equal air entry. No rales or wheezing. ABDOMEN: The abdomen is soft, nontender and no distention. Positive bowel sounds. EXTREMITIES: No cyanosis, clubbing or edema. NEUROLOGIC: No focal sensory deficits. LABORATORY DATA: Sodium 137, potassium 4.7, chloride 104, carbon dioxide 25, BUN 22, creatinine 1.61, glucose 69. TSH 5.3. WBCs 8.4, hemoglobin 10.5, hematocrit 30, platelet count of 279,000. INR 4.0. PT 46.8. RADIOGRAPHIC STUDIES: A chest x-ray from this afternoon showed mild right lower lung atelectasis, otherwise clear lungs. CT abdomen and pelvis showed no acute intraabdominal or pelvic process. IMPRESSION: 1. Altered mental status. 2. Hypotension responding to IV fluids. 3. History of CVA. 4. Patent foramen ovale with rcfeh-wz-kitx shunt. 5. Coagulopathy on Coumadin. 6. Acute kidney injury improving. 7. History of diabetes mellitus. 8. Hypothyroidism. 9. History of hypertension. 10. Recent admission for Staph bacteremia and urinary tract infection. 11. History of lupus. 12. History of obstructive sleep apnea. RECOMMENDATIONS: 1. Monitor neuro status closely and avoid any sedatives. 2. CT scan of the brain has been ordered. Will followup. In addition, will consult neurology service given underlying history of multiple strokes in the past. 3. Continue oxygen and maintain saturations above 92%. 4. Bronchodilators on a PRN basis. 5. Aspiration precautions. 6. Monitor heart rate and blood pressure closely and maintain MAP greater than 65 mmHg. 7. Lactic acid level measured at 0.6 yesterday. 8. Will obtain a 2-D echocardiogram to evaluate left ventricular function and to follow up on the patent foramen ovale (PFO). The cardiology service has been consulted by the primary team. 9. Continue with aspirin 81 milligrams p.o. daily. 10. Monitor renal function, intakes and outputs and avoid nephrotoxins. 11. Electrolyte replacement as needed. 12. Continue with IV fluids. The patient was given a one liter bolus of normal saline en route. Current blood pressure 111/67. Will continue with maintenance fluids of D5 normal saline at 75 mL/hour. 13. Keep NPO for now until mental status improves. 14. Monitor for signs of infection, which include fever and WBCs. Her blood cultures from yesterday showed no growth to-date and urinalysis from yesterday was negative for leukocyte esterase, nitrite and only 1 WBC. 15. Monitor CBC and coagulations as the patient is on coumadin. Her INR was 4.0 this morning. Stool occult blood is negative. 16. Sliding scale insulin with Accu-Chek q. 6 hours for glycemic control. 17. GI prophylaxis with Protonix 40 milligrams daily. 18. DVT prophylaxis with SCDs. The patient is on Coumadin and there is no need for any further anticoagulation. 19. Follow up on labs. CRITICAL CARE TIME: Fifty (50) minutes excluding procedures. Case discussed with Dr. Feliciano from the family medicine team. MD JENNIFER Hemphill/JADIEL /3:14 PM /3:38 PM
--- NOTE | 2016-08-21 16:04 | RADRPT ---
EXAM DATE/TIME: 08/21/2016 15:29 [facility] COMPARISON: MRI BRAIN W/O CONTRAST, August 09, 2016, 19:55. CT BRAIN W/O CONTRAST, August 09, 2016, 12:15. INDICATIONS : Altered mental status. RADIATION DOSE: 37.26 CTDIvol (mGy) MEDICAL HISTORY : Stroke. Hypertension. Lupus. SURGICAL HISTORY : None. ENCOUNTER: Initial ACUITY: 1 day PAIN SCALE: 0/10 LOCATION: cranial TECHNIQUE: Multiple contiguous axial images were obtained of the head. Using automated exposure control and adj ustment of the mA and/or kV according to patient size, radiation dose was kept as low as reasonably a chievable to obtain optimal diagnostic quality images. FINDINGS: CEREBRUM: Stable appearance of encephalomalacia in the left frontal mid and high convexity and extra-axial enla rgement of the left frontal horn. Old infarction in the external capsule on the left side. The appe arance of the infarction is similar to recent CT and MR. No evidence of acute blood products. No ev idence of mass effect or midline shift. At the right high convexity parietal region, there is a oval spontaneously high density lesion measuring 11 mm which has been present on prior imaging studies da ting back to 2013, probably represents meningioma, stable. POSTERIOR FOSSA: The cerebellum and brainstem are intact. The 4th ventricle is midline. The cerebellopontine angle i s unremarkable. EXTRACRANIAL: The visualized portion of the orbits is intact. SKULL: The calvaria is intact. No evidence of skull fracture. CONCLUSION: No acute findings. Stable appearance to the left old frontoparietal infarction and infarction in the left anterior external capsule. Jordan Hensley MD on August 21, 2016 at 15:58 Board Certified Radiologist. This report was verified electronically.
[2016-08-21 16:57] LABS: ALT (GPT) 18 U/L (10-53); ANION GAP 8 MEQ/L (5-15); AST (GOT) 12 U/L (15-37); BICARBONATE 26.5 MEQ/L (21.0-32.0); BLOOD UREA NITROGEN 22 MG/DL (7-18); CHLORIDE 107 MEQ/L (98-107); GLOMERULAR FILTRATION RATE 34 ML/MIN (>89); MAGNESIUM 1.3 MG/DL (1.5-2.5); SODIUM (NA) 141 MEQ/L (136-145)
[2016-08-21 16:59] LABS: ALKALINE PHOSPHATASE 89 U/L (45-117); TOTAL BILIRUBIN ADULT 0.2 MG/DL (0.2-1.0)
[2016-08-21 17:02] LABS: CREATINE KINASE 29 U/L (26-192)
--- NOTE | 2016-08-21 17:28 | MB ---
cc: YOLA BOWIE M.D. DATE OF CONSULTATION: 08/21/2016 HISTORY OF PRESENT ILLNESS She is a 55-year-old woman seen in neurological consultation. Today she was on a regular floor and was unresponsive on a couple of occasions with blood pressure dropping to 80s. She was given IV fluids and transferred to the unit. CT brain was obtained showing old left frontoparietal area of a vascular event. The patient has a history of a stroke two and three years ago with right with right hemiparesis, speech and balance disorder. History of PFO on anticoagulation. History of diabetes, hypertension. History of recent infectious processes. This time she was admitted with abdominal complaints and some renal failure. MEDICATIONS The current medications were reviewed and includes - 1. Aspirin. 2. Citalopram. 3. Risperdal 2 mg a day. 4. Warfarin. 5. Pravastatin 80 mg a day. 6. Gabapentin 300 mg twice a day, 400 mg twice a day as well. 7. Reglan. 8. Zofran. 9. Ambien. NEUROLOGIC EXAMINATION On exam the patient was actually awake, somewhat pale but grossly oriented. She knows the place, knew the month, knew her age, and the family was at bedside and was describing that the patient often could not respond to questions like these in an appropriate manner like she did today. She does have a mild right facial weakness. Ocular movements and visual pandya full. She raises her arms and legs. There appears to be some very mild right hemiparesis. There is some generalized weakness. Reflexes diminished versus absent throughout. Plantar responses flexor. IMAGING CT brain as discussed above. LABORATORY DATA WBC 8.4 today, 12.1 yesterday. Hemoglobin is stable at 10.5, platelets 279. Sodium today 137, potassium 4.7, BUN 22, creatinine 1.6, glucose 69. Pending repeat labs today. INR 4.0. ASSESSMENT Transient unresponsiveness likely related to hypotensive syndrome. She is significantly improved. Status post left frontoparietal stroke, history of PFO and she is on Coumadin with INR actually above the expected range. She will be followed in the unit. Depending upon clinical course we will consider further evaluation. Continue the aggressive medical management. Thank you for asking us to assist in her care. MD ALLYSSA Zaidi/BJMu /4:50 PM /5:06 PM
[2016-08-21] MEDS: DEXT 5%-NACL 0.9% 1000 ML INJ 1,000 ML IV SCH (17:40)
[2016-08-21] MEDS: MAGNESIUM SULFATE 1 GM PREMIX 100 ML IV SCH ×2 (18:34→21:33)
[2016-08-21] MEDS: PRAVASTATIN SOD 80 MG TAB PO SCH (21:00)
[2016-08-21 22:53] LABS: AUTOMATED NEUTROPHIL # 4.7 TH/MM3 (1.8-7.7); BASOPHIL % 0.2 % (0.0-2.0); EOSINOPHIL # 0.1 TH/MM3 (0-0.4); HEMATOCRIT 23.6 % (35.0-46.0); HEMO FLAGS DIFF FINAL; LYMPH % 39.3 % (9.0-44.0); LYMPHOCYTE # 3.4 TH/MM3 (1.0-4.8); MEAN CELL VOLUME 83.9 FL (80.0-100.0); MEAN CORPUSCULAR HEMOGLOBIN 28.6 PG (27.0-34.0); MEAN CORPUSCULAR HGB CONC 34.2 % (32.0-36.0); MONO % 5.2 % (0.0-8.0); NEUT % 54.3 % (16.0-70.0); PLATELET COUNT 220 TH/MM3 (150-450); RED BLOOD COUNT 2.82 MIL/MM3 (4.00-5.30); RED CELL DISTRIBUTION WIDTH 14.6 % (11.6-17.2); WHITE BLOOD COUNT 8.6 TH/MM3 (4.0-11.0)
[2016-08-22] VITALS (16 sets, daily range): BP systolic 90–165; BP diastolic 54–89; PULSE 58–80; RESP 11–21; TEMP 96–98.7; O2SAT 93–99
[2016-08-22] MEDS: INSULIN ASPART SUPPLEMENTAL SCALE SQ SCH ×4 (04:58→18:00)
[2016-08-22] MEDS: DEXT 5%-NACL 0.9% 1000 ML INJ 1,000 ML IV SCH ×2 (04:59→18:10)
[2016-08-22 07:19] LABS: AUTOMATED NEUTROPHIL # 5.9 TH/MM3 (1.8-7.7); BASOPHIL % 0.5 % (0.0-2.0); EOSINOPHIL # 0.1 TH/MM3 (0-0.4); EOSINOPHIL % 1.2 % (0.0-4.0); HEMATOCRIT 26.6 % (35.0-46.0); HEMO FLAGS DIFF FINAL; LYMPH % 32.5 % (9.0-44.0); LYMPHOCYTE # 3.1 TH/MM3 (1.0-4.8); MEAN CELL VOLUME 85.8 FL (80.0-100.0); MEAN CORPUSCULAR HEMOGLOBIN 28.5 PG (27.0-34.0); MEAN CORPUSCULAR HGB CONC 33.2 % (32.0-36.0); MONO % 3.8 % (0.0-8.0); PLATELET COUNT 247 TH/MM3 (150-450); RED CELL DISTRIBUTION WIDTH 14.9 % (11.6-17.2); WHITE BLOOD COUNT 9.6 TH/MM3 (4.0-11.0)
[2016-08-22 07:22] LABS: INTERNATIONAL NORMALIZED RATIO 2.6 RATIO; PROTHROMBIN TIME - PATIENT 30.2 SEC (9.8-11.6)
[2016-08-22 07:30] LABS: ALKALINE PHOSPHATASE 80 U/L (45-117); ALT (GPT) 16 U/L (10-53); ANION GAP 8 MEQ/L (5-15); AST (GOT) 16 U/L (15-37); BICARBONATE 23.1 MEQ/L (21.0-32.0); BLOOD UREA NITROGEN 19 MG/DL (7-18); CHLORIDE 111 MEQ/L (98-107); GLOMERULAR FILTRATION RATE 34 ML/MIN (>89); MAGNESIUM 1.8 MG/DL (1.5-2.5); POTASSIUM 4.3 MEQ/L (3.5-5.1); SODIUM (NA) 142 MEQ/L (136-145); TOTAL BILIRUBIN ADULT 0.2 MG/DL (0.2-1.0)
--- NOTE | 2016-08-22 07:37 | HHI.CCPN ---
Subjective Remarks/Hospital Course The patient is a 55-year-old female with past medical history of CVA x3, PFO with [id number] shunt on anticoagulation, history of hypertension, hypothyroidism, diabetes mellitus, hyperlipidemia and arthritis. She was admitted to [facility] on August 20 with intractable nausea and vomiting. On arrival to the emergency department, the patient was in renal failure with a BUN of 28 and creatinine 2.2. In addition, she had mild leukocytosis with a WBC of 12.1. She was recently discharged from [facility] after she was admitted back on August 09 for altered mental status and was found to have renal failure as well in addition to MSSA bacteremia and E-coli and a urinary tract infection with a urine culture growing E-coli. She was discharged home on a five day course of Zyvox and Levaquin after repeat blood cultures were negative. The patient is a poor historian. Most of the history was obtained from reviewing the medical records. She had a CT abdomen and pelvis on arrival, which showed no acute intra- abdominal or pelvic process. She was initially admitted to the medical floor and a HaliCAT was called as the patient was found hypotensive with a systolic blood pressure in the 80s and was only responsive to sternal rub. ABG was performed at 1352, which showed a pH of 7.39, CO2 40, pAO2 82, bicarb 24 , saturation of 94%. Chest x-ray from this afternoon showed mild right lower lung atelectasis, otherwise lungs are grossly clear. She was given a one liter bolus of normal saline en route and was transferred to [facility] for close observation. When seen in the ICU, the patient appears a little bit more responsive and more awake. A stat CT scan of the brain has been ordered. Her laboratory data from today showed improvement of her renal function with a creatinine of 1.61 from 2.2 and her hemoglobin is stable at 10.5. The patient is coagulopathic with an INR of 4.0 from this morning. Critical care medicine was consulted for critical care management. Subjective 08/22: Respiratory: Overnight. Awake and alert and following commands. A.m. laboratories still pending. BM 1 noted. Objective Vital Signs Date Time Temp Pulse Resp B/P Pulse Ox O2 Delivery O2 Flow Rate FiO2 08/22/16 06:00 61 08/22/16 04:00 98.7 11 97/63 99 08/21/16 21:12 Nasal Cannula 2.00 08/21/16 10:20 21 Intake and Output 08/21/16 08/21/16 08/22/16 08:00 16:00 00:00 Intake Total 1178 ml 598 ml Balance 1178 ml 598 ml Result Diagram: 08/22/16 0617 08/21/16 1626 Other Results Microbiology Date/Time Procedure Status Source Growth 08/21/16 16:26 Aerobic Blood Culture Received Blood Peripheral Pending 08/21/16 16:26 Anaerobic Blood Culture Received Blood Peripheral Pending 08/21/16 10:00 Stool Occult Blood (JANAE) - Final Complete Stool Stool HEMOCCULT NEGATIVE 08/20/16 12:50 Aerobic Blood Culture - Preliminary Resulted Blood Peripheral NO GROWTH IN 1 DAY 08/20/16 12:50 Anaerobic Blood Culture - Preliminary Resulted Blood Peripheral NO GROWTH IN 1 DAY Imaging Last Impressions Head CT 08/21/16 0000 Signed Impressions: Service Date/Time: Sunday, August 21, 2016 15:29 - CONCLUSION: No acute findings. Stable appearance to the left old frontoparietal infarction and infarction in the left anterior external capsule. Jordan Hensley MD Chest X-Ray 08/21/16 0000 Signed Impressions: Service Date/Time: Sunday, August 21, 2016 14:28 - CONCLUSION: Mild right lower lung atelectasis. Otherwise lungs are grossly clear. Julius Garcia MD Abdomen/Pelvis CT 08/20/16 1049 Signed Impressions: Service Date/Time: Saturday, August 20, 2016 11:28 - CONCLUSION: Essentially stable scan of the abdomen and pelvis other than apparent removal of a Cardoso catheter with a small amount residual air anteriorly in the urinary bladder. No acute intra-abdominal or pelvic process. The right lower lobe parenchymal infiltrate has progressed to a more rounded appearance and cicatrization Long Garber MD Gastric Emptying Nuclear Medicine 08/20/16 0000 Signed Impressions: Service Date/Time: Saturday, August 20, 2016 15:55 - CONCLUSION: Unremarkable study. Tiesha Quinteros MD Objective Remarks GENERAL: 55 year old male, critically ill currently resting in bed in no acute distress SKIN: Warm and dry. No rash HEAD: Atraumatic. Normocephalic. EYES: Pupils equal and round around 3 mm bilaterally and reactive. No scleral icterus. No injection or drainage. ENT: No nasal bleeding or discharge. Mucous membranes pink and moist. NECK: Trachea midline. No JVD. CARDIOVASCULAR: Regular rate and rhythm. S1, S2. No S4. RESPIRATORY: Clear to auscultation. Breath sounds equal bilaterally. GASTROINTESTINAL: Abdomen soft, non-tender, nondistended. Hypoactive bowel sounds MUSCULOSKELETAL: Extremities with trace nonpitting lower extremity edema. No obvious deformities. NEUROLOGICAL: Awake and alert. No obvious cranial nerve deficits. Motor grossly within normal limits. Five out of 5 muscle strength in the arms and legs. Normal speech. A/P Assessment and Plan Neuro/Psych: Acute delirium - medication? History of left frontal CVA Claustrophobia Depression/anxiety Peripheral neuropathy Restless leg syndrome CT head revealed closed frontoparietal CVA from 2012. Prior MRA brain revealed old hemorrhage left greater than right basal ganglia and left frontal lobe. Home medications include Celexa 40 mg by mouth daily for depression. This is been resumed Home medications Risperdal 2 mg by mouth daily for depression/anxiety. This is been resumed Patient is on Neurontin 400 mg by mouth twice a day. On 800 mg by mouth 3 times a day at home for neuropathy Patient is on [place]/as needed Ultram at home. [place] has been resumed. CV: Hypertension Dyslipidemia PFO with kmdnp-vn-weil shunt Home medications lisinopril 40 mEq by mouth daily for hypertension. This is been held in light of hypotension. Home medications is simvastatin 40 mg by mouth daily for dyslipidemia. Hospital substitution is Pravachol 80 mg by mouth daily. Currently on D5 normal saline at 75 cc an hour. Continue aspirin 81 mg by mouth daily Echo 2013 revealed EF 55%. No regional wall motion abnormality. Mild MR/TR Resp: Right-sided pneumonia? - Treated Obstructive sleep apnea Nasal cannula to maintain saturations greater than equal to 92% Incentive spirometry while awake As needed bronchodilator therapy. GI: Intractable nausea/vomiting [facility] On 1800 ADA diet. Evaluated by GI. Plan for EGD/colonoscopy once INR normalizes Nuclear medicine gastric emptying study normal findings. CT added/pelvis revealed no signs of structural obstruction or colonic inflammation. Enlarged liver. Status post cholecystectomy. Left adrenal adenoma. On Reglan 10 mg 3 times a day for gastric motility. : Cardoso for accurate I's and O's in a critically ill patient Endo: Diabetes mellitus Left adrenal adenoma History of hypothyroidism Patient is on metformin 1000 g by mouth twice a day at home for diabetes. This has been held in light of acute kidney injury. Sliding scale insulin with Accu checks to maintain euglycemia. Check TSH Renal: Acute kidney injury Creatinine declining. Received 1 L normal saline bolus upstairs. Monitor urine output. Follow-up a.m. laboratories Heme: Normocytic anemia Chronic warfarin use secondary to PFO Coumadin currently on hold pending EGD/colonoscopy per GI Follow daily INRs. Monitor CBCs ID: History of MSSA bacteremia Currently off Zyvox 600 mg by mouth twice a day. Blood cultures 2 08/20 and 08/21 pending. MSK: Chronic low back pain Osteoarthritis PT evaluate and treat FEN: Replace electrolytes as clinically indicated Access - Utilize peripheral IV. Central line if indicated Prophylaxis - GI - Protonix - DVT - SCD/on Coumadin Critical Care: The total critical care time was 35 minutes. Time to perform other separately billable procedures was not included in the critical care time. Eamon Zavala MD Aug 22, 2016 07:37
[2016-08-22] MEDS: ASPIRIN EC 81 MG TABEC PO SCH (08:44)
[2016-08-22] MEDS: PANTOPRAZOLE SODIUM 40 MG VIAL IV PUSH SCH (08:44)
[2016-08-22] MEDS: risperiDONE 1 MG TAB PO SCH (08:45)
[2016-08-22] MEDS: GABAPENTIN 400 MG CAP PO SCH ×2 (08:45→21:00)
[2016-08-22] MEDS: GABAPENTIN 300 MG CAP PO SCH ×2 (08:45→21:00)
[2016-08-22] MEDS: SODIUM CHLORIDE 0.9% FLUSH 5 ML FLUSH FLUSH SCH ×2 (08:47→21:00)
[2016-08-22] MEDS ORDERED: DEXAMETHASONE SOD PHOS 4 MG/ML VIAL IV PUSH SCH (09:00)
--- NOTE | 2016-08-22 09:12 | HHI.FPPN ---
Subjective Remarks Patient seen this morning. Did have non-sustained run of Vtach overnight (14 beats). Patient also had decreased responsiveness around the same time. Resident team was paged. There was some concern for possible stroke. Neuro was consulted and CT head ordered. CT showed no acute findings. Vitals this morning are WNL. Did have low pressures (MAP 60s) yesterday around the time she had decreased responsiveness. Today both she and her state her level of alertness is back at baseline. She has no complaints at this time. Denies any nausea. No CP or SOB. No Ab pain. On further interview, states she had episode of red emesis x2 approximately 4 days ago. Other episodes have been "bile". (Peter Ng MD R3) Objective Vitals Vital Signs Date Time Temp Pulse Resp B/P Pulse Ox O2 Delivery O2 Flow Rate FiO2 08/22/16 08:15 97 21 08/22/16 06:00 61 08/22/16 04:00 59 08/22/16 04:00 98.7 59 11 97/63 99 08/22/16 02:00 58 08/22/16 00:00 69 08/22/16 00:00 97.6 69 12 90/54 97 08/21/16 22:00 60 08/21/16 21:12 99 Nasal Cannula 2.00 08/21/16 20:00 97.9 62 14 88/54 99 08/21/16 20:00 62 08/21/16 13:45 95 2.00 08/21/16 13:45 95 Nasal Cannula 2.00 08/21/16 13:20 97.3 71 20 80/50 95 08/21/16 12:05 97.6 76 18 97/58 95 08/21/16 10:20 98 21 I/O 08/21/16 08/21/16 08/21/16 08/22/16 08/22/16 08/22/16 07:00 15:00 23:00 07:00 15:00 23:00 Intake Total 1178 ml 598 ml 486 ml Balance 1178 ml 598 ml 486 ml Intake Oral 180 ml 120 ml 0 ml IV Total 998 ml 478 ml 486 ml # Voids 1 1 1 # Bowel Movements 1 0 (Peter Ng MD R3) Result Diagram: 08/22/1661608/22/16616 Objective Remarks GENERAL: pale, Ill-appearing, middle aged female. Appears older than stated age. In NAD. SKIN: No rashes, ecchymoses or lesions. Cool and dry. EYES: Pupils equal round and reactive. Extraocular motions intact. No scleral icterus. No injection or drainage. ENT: Nose without bleeding, purulent drainage or septal hematoma. Throat without erythema, tonsillar hypertrophy or exudate. Uvula midline. Airway patent. MMM. CARDIOVASCULAR: Regular rate and rhythm without murmurs, gallops, or rubs. +2 peripheral pulses. <2s capillary refill. RESPIRATORY: Non-labored. CTAB. No adventitious sounds. GASTROINTESTINAL: Abdomen soft, non-tender, nondistended. No hepato-splenomegaly , or palpable masses. No guarding. MUSCULOSKELETAL: Extremities without clubbing, cyanosis, or edema. No joint tenderness, effusion, or edema noted. No calf tenderness. Negative Homans sign bilaterally. NEUROLOGICAL: Awake and alert. Cranial nerves II through XII intact. 4/5 strength in right upper and lower extremities, otherwise sensation and motor grossly WNL. Intact JENNY and FNF. Negative Rhomberg. Negative Baninski. Normal speech. (Peter Ng MD R3) A/P Assessment and Plan 55 year old female present with complaint of worsening nausea/vomiting. Now with episode of decreased responsiveness and hypotension overnight. Discharge Planning Likely DC in next 1-2 days. PT will eval, recs for discharge pending. Will discuss with Dr. Hemphill (Peter Ng MD R3) Attending Attestation Patient seen and examined. Case reviewed and discussed with the resident team. Agree with plan of care as discussed with me and documented in the resident note. agree with working up for adrenal insufficiency. She received 8 mg of dexamethasone on the and had high BPs. when the dexamethasone "wore off" on the her BPs were 80-90s over 50-60s. Only today after she received more dexamethasone did her BPs jump right up. She may have had adrenal insufficiency gradually coming on for months as she has no appetite, weakness, fatigue, low glucoses and some orthostatic sxs, etc. Today after dexamethasone she has high BPs, is eating well and feels great. She will have urine and blood tests to evaluate for this. She also has a 2 plus cm mass on her adrenal gland. (Pauly Hemphill MD) Problem List: (1) Nausea & vomiting Status: Acute Plan: Improved with Reglan. Appears to be a chronic issue. Likely has gastritis /ulcer based on ?h/o hematemesis at home. Also concern for GI malignancy v hormone-secreting adrenal adenoma. -QTc prolonged. Need to keep on tele, especially given non-sustained run of Vtach overnight. -q3 vs with BP -restart decadron 2 mg IV daily for control of nausea -hold reglan and citalopram at this time, given concern for QT prolongation. Keep PRN zofran. -INR down to 2.6 today. Hold coumadin in anticipation of possible EGD/ Colonoscopy in AM. -blood cx 08/20 NGTD; repeat blood cx 08/21 pending -gastric emptying study negative -CT ab shows no acute process. Has adrenal mass that, given her hypotension, should be worked up with AM cortisol level. Will check tomorrow morning. Will also get 24 hour urine cortisol. -GI consulted. Awaiting recs. Likely needs EGD/Colonoscopy. (2) JAMAL (acute kidney injury) Status: Acute Plan: Improving. Cr 1.56 today. Uncertain baseline Cr. Lowest level this year was 1.6. WNL in 2015. ?h/o CKD related to DM. -s/p 1 L bolus in the ED -cont D5 NS at 75 MLS/hr -Encourage PO intake -Check chemistry in the morning -UA looks clear, no cx indicated -concerned that she has poor po intake per her daughter (3) Right pulmonary infiltrate on CXR Status: Acute Plan: Likely atelectasis v resolving PNA. Doubt acute infection. -s/p cefepime and azithromycin x1 in the ED -hold off on further antibiotic therapy at this time as patient adequately treated for recent ?PNA and UTI. Restart cefepime and azithromycin if clinical deterioration. (4) Anemia Status: Acute Plan: Uncertain cause. Hb down to the 8s compared to 10.3 on admission. Was as high as 12.5 earlier this month. -occult blood stool neg x1. Hemoccult negative in the ED on admission. -check iron studies -trend daily CBC (5) Diabetes Status: Acute Plan: Recent A1c of 5. On metformin monotherapy. -hold metformin in hospital -ss insulin -cont home gabapentin (6) HTN (hypertension) Status: Acute Plan: On lisinopril at home. Blood pressures low overnight, as above. -hold lisinopril given JAMAL and low blood pressures -PRN clonidine and hydralazine (7) Hyperlipidemia Status: Chronic Plan: Cont home statin (8) Hypothyroid Status: Acute Plan: History of hypothyroidism. Most recent TSH low at 0.08. Not currently on thyroid medication at home. -TSH 5 on admission, within range for stress RXN (9) Depression with anxiety Status: Acute Plan: cont home citalopram. Will add PRN ativan. (10) History of CVA (cerebrovascular accident) Status: Resolved Plan: On warfarin therapy. 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 Concern for unresponsiveness, now alert and at baseline this morning. INR in therapeutic range today. -hold warfarin today in anticipation of likely EGD/Colonoscopy. -lovenox today if patient not scheduled for EGD/Colonoscopy tomorrow (11) DEN (obstructive sleep apnea) Status: Acute Plan: Has home CPAP. Will provide PRN Bipap if unable to bring this. (12) Dietary counseling and surveillance Status: Acute Plan: Diet: 1800 cons carb. Glucerna supp for low protein. Fluids: as above DVT ppx: on warfarin AM labs: CBC, CMP, iron studies, AM cortisol GI ppx: zantac (Peter Ng MD R3) Problem Qualifiers (1) Nausea & vomiting: Qualified Code: R11.2 - Intractable vomiting with nausea, unspecified vomiting type (2) Anemia: Qualified Code: D64.89 - Anemia due to other cause, not classified (3) Diabetes: Qualified Code: E11.42 - Type 2 diabetes mellitus with diabetic polyneuropathy , without long-term current use of insulin (4) HTN (hypertension): Qualified Code: I10 - Essential hypertension Peter Ng MD R3 Aug 22, 2016 09:12 Pauly Hemphill MD Aug 22, 2016 14:09
[2016-08-22 11:05] LABS: TRANSFERRIN IRON PROFILE 143 MG/DL (200-360)
--- NOTE | 2016-08-22 11:28 | PD.CONS ---
HPI Service Cardiology Consult Requested By Primary Care Physician Shan Quick MD History of Present Illness 55 year old female admitted with JAMAL in the setting worsening nausea, abn pain, vomiting and hematemesis. Recently [place] [facility] [place] for AMS, treated for ARF and bacteremia. very poor historian hx taken from chart. Yesterday she was transferred to ICU after [facility] was called due hypotensive with a systolic blood pressure in the 80s and unresponsiveness. ABG was performed at 1352, which showed a pH of 7.39, CO2 40, pAO2 82, bicarb 24, saturation of 94% Head CT negative for CVA. She had an episode of Nonsustained VT. She denies chest pain, palpitations, SOB, syncope, lightheadedness, leg edema. Cardiology has been consulted for evaluation of Non-Sustained Ventricular. Review of Systems ROS Limitations: Poor Historian Consitutional: DENIES: Fatigue, Fever, Chills, Weight gain, Weight loss Eyes: DENIES: Amaurosis Fugax, Change in vision HEENT: DENIES: Lightheadedness, Change in hearing Respiratory: DENIES: See HPI, Cough, Snoring, Shortness of breath, Wheezing, Sputum production Gastrointestinal: DENIES: Nausea, Vomiting, Change in bowel habits, Reflux, Bloody stools, Melena Genitourinary: DENIES: Urinary incontinence, Difficulty voiding Integumentary: DENIES: Rash Neurologic: DENIES: Tingling or numbness, Memory problems, Poor Balance, Stroke symptoms Musculoskeletal: DENIES: Joint pain, Muscle pain, Limited range of motion, Back pain Psychiatric: DENIES: Anxiety, Depression, Sleep disturbances Hematologic: DENIES: Bruising tendencies, Bleeding tendencies Endocrine: DENIES: Weight gain, Weight loss, Thyroid disease Past Family Social History Allergies: Coded Allergies: Penicillin (Verified Allergy, Severe, Rash, 08/20/16) Past Medical History CVA X3 lupus diabetes mellitus II, on metformin hypothyroidism, hypertension, arthritis, hyperlipidemia, depression/anxiety, restless leg syndrome, DEN Past Surgical History Cholecystectomy 1996 Right oophero salpingectomy 1996 Reported Medications Reported Meds & Active Scripts Active Tramadol (Tramadol HCl) 50 Mg Tab 50 Mg PO Q8H PRN Lortab (Hydrocodone-Acetaminophen) 10-325 Mg Tab 1 Tab PO Q4H PRN Zyvox (Linezolid) 600 Mg Tab 600 Mg PO Q12H Levaquin (Levofloxacin) 250 Mg Tab 250 Mg PO DAILY Citalopram (Citalopram Hydrobromide) 40 Mg Tab 40 Mg PO DAILY hold this medication until course of antibiotics has been completed Warfarin 5 Mg Tab 5 Mg PO DAILY Gabapentin 800 Mg Tab 800 Mg PO TID Aspirin 81 Mg Tabdr 81 Mg PO DAILY Simvastatin 40 Mg Tab 40 Mg PO HS Reported Risperdal (Risperidone) 2 Mg Tab 2 Mg PO DAILY Lisinopril 40 Mg Tab 40 Mg PO DAILY Metformin (Metformin HCl) 1,000 Mg Tab 1,000 Mg PO BIDPC With meals Active Ordered Medications Current Medications Medications (Trade) Dose Ordered Sig/Anabela Route Start Time Stop Time Status Last Admin (NS Flush) 2 ml UNSCH PRN FLUSH 08/20/16 14:00 (NS Flush) 2 ml BID FLUSH 08/20/16 21:00 08/22/16 08:47 (Zofran Inj) 4 mg Q6H PRN IVP 08/20/16 15:00 (Ambien) 5 mg HS PRN PO 08/20/16 15:00 (Narcan Inj) 0.4 mg UNSCH PRN IV 08/20/16 14:00 (Reglan) 10 mg TIDAC PO 08/20/16 17:00 Hold 08/21/16 17:39 (Ecotrin Ec) 81 mg DAILY PO 08/21/16 09:00 08/22/16 08:44 (CeleXA) 40 mg DAILY PO 08/21/16 09:00 Hold 08/21/16 08:04 (risperDAL) 2 mg DAILY PO 08/21/16 09:00 08/22/16 08:45 (Coumadin) 5 mg DAILY PO 08/21/16 09:00 UNV (Pravachol) 80 mg HS PO 08/20/16 21:00 08/20/16 21:37 (Catapres) 0.1 mg Q6H PRN PO 08/20/16 14:45 (Apresoline) 10 mg Q6HR PRN PO 08/20/16 14:45 08/21/16 05:34 (Ativan) 1 mg Q8H PRN PO 08/20/16 15:00 (Neurontin) 300 mg BID PO 08/20/16 21:00 08/22/16 08:45 (Neurontin) 400 mg BID PO 08/20/16 21:00 08/22/16 08:45 (Skye-Colace) 1 tab DAILY PRN PO 08/20/16 15:15 (Tylenol) 325 mg Q4H PRN PO 08/20/16 15:15 ([place] 5-325 Mg) 1 tab Q4H PRN PO 08/20/16 15:15 Acetaminophen/ Hydrocodone Bitart 2 tab 2 tab Q4H PRN PO 08/20/16 15:15 (D5W-NS 1000 ml Inj) 1,000 ml @ 75 mls/hr [id number] IV 08/21/16 17:00 08/22/16 04:59 (NovoLOG SUPPLEMENTAL SCALE) 1 Q6H SQ 08/21/16 18:00 (Protonix Inj) 40 mg Q24H IV PUSH 08/22/16 08:00 08/22/16 08:44 (Decadron Inj) 2 mg DAILY IV PUSH 08/22/16 21:00 UNV Physical Exam Vital Signs Vital Signs Date Time Temp Pulse Resp B/P Pulse Ox O2 Delivery O2 Flow Rate FiO2 08/22/16 08:15 97 21 08/22/16 06:00 61 08/22/16 04:00 59 08/22/16 04:00 98.7 59 11 97/63 99 08/22/16 02:00 58 08/22/16 00:00 69 08/22/16 00:00 97.6 69 12 90/54 97 08/21/16 22:00 60 08/21/16 21:12 99 Nasal Cannula 2.00 08/21/16 20:00 97.9 62 14 88/54 99 08/21/16 20:00 62 08/21/16 13:45 95 2.00 08/21/16 13:45 95 Nasal Cannula 2.00 08/21/16 13:20 97.3 71 20 80/50 95 08/21/16 12:05 97.6 76 18 97/58 95 Physical Exam GENERAL: Well-nourished, well-developed patient. SKIN: Warm and dry. HEAD: Normocephalic. EYES: No scleral icterus. No injection or drainage. NECK: Supple, trachea midline. No JVD or lymphadenopathy. CARDIOVASCULAR: Regular rate and rhythm without murmurs, gallops, or rubs. RESPIRATORY: Breath sounds equal bilaterally. No accessory muscle use. GASTROINTESTINAL: Abdomen soft, non-tender, nondistended. EXTREMITIES: No cyanosis, or edema. Laboratory Laboratory Tests Test 08/21/16 08/21/16 08/21/16 08/22/16 13:52 16:26 21:59 06:17 Blood Gas Puncture Site LT RADIAL Blood Gas Patient Temperature 98.6 Blood Gas HCO3 24 Blood Gas Base Excess -0.9 Blood Gas Oxygen Saturation 94 Arterial Blood pH 7.39 Arterial Blood Partial 40 Pressure CO2 Arterial Blood Partial 82 Pressure O2 Arterial Blood Oxygen Content 10.8 Arterial Blood 1.0 Carboxyhemoglobin Arterial Blood Methemoglobin 1.1 Blood Gas Hemoglobin 8.1 Blood Gas Inspired Oxygen 21 Sodium Level 141 142 Potassium Level 4.0 4.3 Chloride Level 107 111 Carbon Dioxide Level 26.5 23.1 Anion Gap 8 8 Blood Urea Nitrogen 22 19 Creatinine 1.59 1.56 Estimat Glomerular Filtration 34 34 Rate Random Glucose 95 87 Calcium Level 7.9 7.9 Phosphorus Level 3.0 Magnesium Level 1.3 1.8 Total Bilirubin 0.2 0.2 Aspartate Amino Transf 12 16 (AST/SGOT) Alanine Aminotransferase 18 16 (ALT/SGPT) Alkaline Phosphatase 89 80 Ammonia 22 Total Creatine Kinase 29 Troponin I LESS THAN 0.02 Total Protein 6.1 5.5 Albumin 2.7 2.3 White Blood Count 8.6 9.6 Red Blood Count 2.82 3.10 Hemoglobin 8.1 8.8 Hematocrit 23.6 26.6 Mean Corpuscular Volume 83.9 85.8 Mean Corpuscular Hemoglobin 28.6 28.5 Mean Corpuscular Hemoglobin 34.2 33.2 Concent Red Cell Distribution Width 14.6 14.9 Platelet Count 220 247 Mean Platelet Volume 7.3 7.6 Neutrophils (%) (Auto) 54.3 62.0 Lymphocytes (%) (Auto) 39.3 32.5 Monocytes (%) (Auto) 5.2 3.8 Eosinophils (%) (Auto) 1.0 1.2 Basophils (%) (Auto) 0.2 0.5 Neutrophils # (Auto) 4.7 5.9 Lymphocytes # (Auto) 3.4 3.1 Monocytes # (Auto) 0.4 0.4 Eosinophils # (Auto) 0.1 0.1 Basophils # (Auto) 0.0 0.0 CBC Comment DIFF FINAL DIFF FINAL Differential Comment Blood Type A POSITIVE Antibody Screen NEGATIVE Prothrombin Time 30.2 Prothromb Time International 2.6 Ratio Test 08/22/16 09:44 Iron Level 38 Total Iron Binding Capacity 200 Percent Iron Saturation 19.0 Date/Time Procedure Status Source Growth 08/21/16 16:26 Aerobic Blood Culture - Preliminary Resulted Blood Peripheral NO GROWTH IN 1 DAY 08/21/16 16:26 Anaerobic Blood Culture - Preliminary Resulted Blood Peripheral NO GROWTH IN 1 DAY 08/21/16 10:00 Stool Occult Blood (JANAE) - Final Complete Stool Stool HEMOCCULT NEGATIVE Result Diagram: 08/22/16 0617 08/22/16 0617 Imaging Last Impressions Head CT 08/21/16 0000 Signed Impressions: Service Date/Time: Sunday, August 21, 2016 15:29 - CONCLUSION: No acute findings. Stable appearance to the left old frontoparietal infarction and infarction in the left anterior external capsule. Jordan Hensley MD Chest X-Ray 08/21/16 0000 Signed Impressions: Service Date/Time: Sunday, August 21, 2016 14:28 - CONCLUSION: Mild right lower lung atelectasis. Otherwise lungs are grossly clear. Julius Garcia MD Abdomen/Pelvis CT 08/20/16 1049 Signed Impressions: Service Date/Time: Saturday, August 20, 2016 11:28 - CONCLUSION: Essentially stable scan of the abdomen and pelvis other than apparent removal of a Cardoso catheter with a small amount residual air anteriorly in the urinary bladder. No acute intra-abdominal or pelvic process. The right lower lobe parenchymal infiltrate has progressed to a more rounded appearance and cicatrization Long Garber MD Gastric Emptying Nuclear Medicine 08/20/16 0000 Signed Impressions: Service Date/Time: Saturday, August 20, 2016 15:55 - CONCLUSION: Unremarkable study. KLiv Quinteros MD Assessment and Plan Problem List: (1) Non-sustained ventricular tachycardia Assessment and Plan: Afebrile, hemodynamically stable. No complaints. Telemetry NSR. Several cardiac risk factors HTN, DM, CVA, hyperlipidemia. Asymptomatic NSVT. Continue telemetry monitoring. Follow 2Decho results. Avoid electrolytes abnormalities and treat underlying condition (JAMAL and severe anemia ). Thank you for the opportunity to take part on the care of this patient. Will be available PRN basis for an questions or concerns Sign off (2) CVA (cerebral infarction) (3) DM type 2 (diabetes mellitus, type 2) (4) Hypertension (5) Diabetes mellitus (6) Hyperlipidemia (7) JAMAL (acute kidney injury) Sharan Gunter MD Aug 22, 2016 11:28
[2016-08-22] MEDS ORDERED: DEXAMETHASONE SOD PHOS 4 MG/ML VIAL IM ONE (11:45)
--- NOTE | 2016-08-22 12:28 | EKG ---
Date Performed: 08/21/2016 Time Performed: 14:00:16 PTAGE: 55 years EKG: Sinus rhythm . Prolonged QT interval rSr'(V1) - probable normal variant Poor R wave progression - probable normal variant Lateral T wave changes may be due to myocardial ischemia Abnormal ECG PREVIOUS TRACING 08/09/2016 11.54.07 Poor quality study. Suggest repeat tracing. DOCTOR: Thomas Motta Interpretating Date/Time 08/22/2016 12:28:52
[2016-08-22 13:20] LABS: AMPHETAMINE, URINE NEG (NEG); BARBITURATES, URINE NEG (NEG); COCAINE, URINE NEG (NEG)
--- NOTE | 2016-08-22 16:07 | HHI.PR ---
Review/Management Daily Summary this early am she was stable eating breakfast and describing stability spoke to medicine team likely hypotensive syndrome monitor neuro ok neuro ac for gi endoscopic procedure Subjective Subjective Comments No acute events reported No headache Active Medications Current Medications Medications (Trade) Dose Ordered Sig/Anabela Route Start Time Stop Time Status Last Admin (NS Flush) 2 ml UNSCH PRN FLUSH 08/20/16 14:00 (NS Flush) 2 ml BID FLUSH 08/20/16 21:00 08/22/16 08:47 (Zofran Inj) 4 mg Q6H PRN IVP 08/20/16 15:00 (Ambien) 5 mg HS PRN PO 08/20/16 15:00 (Narcan Inj) 0.4 mg UNSCH PRN IV 08/20/16 14:00 (Reglan) 10 mg TIDAC PO 08/20/16 17:00 Hold 08/21/16 17:39 (Ecotrin Ec) 81 mg DAILY PO 08/21/16 09:00 08/22/16 08:44 (CeleXA) 40 mg DAILY PO 08/21/16 09:00 Hold 08/21/16 08:04 (risperDAL) 2 mg DAILY PO 08/21/16 09:00 08/22/16 08:45 (Coumadin) 5 mg DAILY PO 08/21/16 09:00 UNV (Pravachol) 80 mg HS PO 08/20/16 21:00 08/20/16 21:37 (Catapres) 0.1 mg Q6H PRN PO 08/20/16 14:45 (Apresoline) 10 mg Q6HR PRN PO 08/20/16 14:45 08/21/16 05:34 (Ativan) 1 mg Q8H PRN PO 08/20/16 15:00 (Neurontin) 300 mg BID PO 08/20/16 21:00 08/22/16 08:45 (Neurontin) 400 mg BID PO 08/20/16 21:00 08/22/16 08:45 (Skye-Colace) 1 tab DAILY PRN PO 08/20/16 15:15 (Tylenol) 325 mg Q4H PRN PO 08/20/16 15:15 ([place] 5-325 Mg) 1 tab Q4H PRN PO 08/20/16 15:15 Acetaminophen/ Hydrocodone Bitart 2 tab 2 tab Q4H PRN PO 08/20/16 15:15 (D5W-NS 1000 ml Inj) 1,000 ml @ 75 mls/hr [id number] IV 08/21/16 17:00 08/22/16 04:59 (NovoLOG SUPPLEMENTAL SCALE) 1 Q6H SQ 08/21/16 18:00 (Protonix Inj) 40 mg Q24H IV PUSH 08/22/16 08:00 08/22/16 08:44 (Decadron Inj) 2 mg DAILY IV PUSH 08/22/16 21:00 Allergies Allergies Coded Allergies Penicillin (Verified Allergy, Severe, Rash, 08/20/16) Review of Systems Constitutional: Negative Eye: Negative ENMT: Negative Respiratory: Negative Cardiovascular: Negative Gastrointestinal: Negative Psychiatric: Negative All other ROS: ROS reviewed as documented in chart Exam I&O / VS 08/21/16 08/21/16 08/22/16 15:00 23:00 07:00 Intake Total 598 ml 486 ml Balance 598 ml 486 ml Intake Oral 120 ml 0 ml IV Total 478 ml 486 ml # Voids 1 1 # Bowel Movements 1 0 Vital Signs Date Time Temp Pulse Resp B/P Pulse Ox O2 Delivery O2 Flow Rate FiO2 08/22/16 13:01 97.2 80 18 145/76 97 08/22/16 12:00 74 08/22/16 12:00 98.6 74 21 147/84 95 08/22/16 11:28 98.7 64 19 150/75 99 08/22/16 10:00 79 08/22/16 08:15 97 21 08/22/16 08:00 67 08/22/16 06:00 61 08/22/16 04:00 59 08/22/16 04:00 98.7 59 11 97/63 99 08/22/16 02:00 58 08/22/16 00:00 69 08/22/16 00:00 97.6 69 12 90/54 97 08/21/16 22:00 60 08/21/16 21:12 99 Nasal Cannula 2.00 08/21/16 20:00 97.9 62 14 88/54 99 08/21/16 20:00 62 General: Alert and Oriented, No acute distress Eye: PERRL Respiratory: Lungs CTA Cardiology: Normal rate Musculoskeletal: ROM Neurologic: Alert, Oriented, Normal sensory, Normal motor, No focal defects, CN II-XII intact, Gag reflex normal, Normal DTR's Psychiatric: Cooperative, Appropriate mood & affect Objective Radiology Results Last [address] 08/21/16 0000 Signed Impressions: Service Date/Time: Sunday, August 21, 2016 15:29 - CONCLUSION: No acute findings. Stable appearance to the left old frontoparietal infarction and infarction in the left anterior external capsule. Jordan Hensley MD Chest X-Ray 08/21/16 0000 Signed Impressions: Service Date/Time: Sunday, August 21, 2016 14:28 - CONCLUSION: Mild right lower lung atelectasis. Otherwise lungs are grossly clear. Julius Garcia MD Micro and Labs Laboratory Tests Test 08/21/16 08/21/16 08/22/16 08/22/16 16:26 21:59 06:17 09:44 Sodium Level 141 142 Potassium Level 4.0 4.3 Chloride Level 107 111 Carbon Dioxide Level 26.5 23.1 Anion Gap 8 8 Blood Urea Nitrogen 22 19 Creatinine 1.59 1.56 Estimat Glomerular Filtration 34 34 Rate Random Glucose 95 87 Calcium Level 7.9 7.9 Phosphorus Level 3.0 Magnesium Level 1.3 1.8 Total Bilirubin 0.2 0.2 Aspartate Amino Transf 12 16 (AST/SGOT) Alanine Aminotransferase 18 16 (ALT/SGPT) Alkaline Phosphatase 89 80 Ammonia 22 Total Creatine Kinase 29 Troponin I LESS THAN 0.02 Total Protein 6.1 5.5 Albumin 2.7 2.3 White Blood Count 8.6 9.6 Red Blood Count 2.82 3.10 Hemoglobin 8.1 8.8 Hematocrit 23.6 26.6 Mean Corpuscular Volume 83.9 85.8 Mean Corpuscular Hemoglobin 28.6 28.5 Mean Corpuscular Hemoglobin 34.2 33.2 Concent Red Cell Distribution Width 14.6 14.9 Platelet Count 220 247 Mean Platelet Volume 7.3 7.6 Neutrophils (%) (Auto) 54.3 62.0 Lymphocytes (%) (Auto) 39.3 32.5 Monocytes (%) (Auto) 5.2 3.8 Eosinophils (%) (Auto) 1.0 1.2 Basophils (%) (Auto) 0.2 0.5 Neutrophils # (Auto) 4.7 5.9 Lymphocytes # (Auto) 3.4 3.1 Monocytes # (Auto) 0.4 0.4 Eosinophils # (Auto) 0.1 0.1 Basophils # (Auto) 0.0 0.0 CBC Comment DIFF FINAL DIFF FINAL Differential Comment Blood Type A POSITIVE Antibody Screen NEGATIVE Prothrombin Time 30.2 Prothromb Time International 2.6 Ratio Iron Level 38 Total Iron Binding Capacity 200 Percent Iron Saturation 19.0 Random Cortisol 11.1 Test 08/22/16 12:46 Urine Opiates Screen NEG Urine Barbiturates Screen NEG Urine Amphetamines Screen NEG Urine Benzodiazepines Screen NEG Urine Cocaine Screen NEG Urine Cannabinoids Screen POS Date/Time Procedure Status Source Growth 08/21/16 16:26 Aerobic Blood Culture - Preliminary Resulted Blood Peripheral NO GROWTH IN 1 DAY 08/21/16 16:26 Anaerobic Blood Culture - Preliminary Resulted Blood Peripheral NO GROWTH IN 1 DAY 08/21/16 10:00 Stool Occult Blood (JANAE) - Final Complete Stool Stool HEMOCCULT NEGATIVE Demetria Oquendo MD Aug 22, 2016 16:07
--- NOTE | 2016-08-22 17:46 | EC ---
Study Study Date:08/22/2016 STUDY CONCLUSIONS SUMMARY - Left ventricle: The cavity size was normal. Wall thickness was increased in a pattern of moderate LVH. Systolic function was normal. The estimated ejection fraction was 65%. Wall motion was normal; there were no regional wall motion abnormalities. - Mitral valve: Mild regurgitation. - Left atrium: The atrium was mildly dilated. - Tricuspid valve: Mild regurgitation. - Pulmonary arteries: Systolic pressure was mildly increased. PA peak pressure: 45mm Hg (S). If LV function is below 40, please consider prescribing an ACEI or ARB or document rationale for non-use. PROCEDURE DATA STUDY STATUS: Elective. Procedure: Transthoracic echocardiography. Image quality was good. Scanning was performed from the parasternal, apical, and subcostal acoustic windows. Study completion: The patient tolerated the procedure well. Transthoracic echocardiography. M-mode, complete 2D, complete spectral Doppler, and color Doppler. Patient status: Inpatient. CARDIAC ANATOMY LEFT VENTRICLE: The cavity size was normal. Wall thickness was increased in a pattern of moderate LVH. Systolic function was normal. The estimated ejection fraction was 65%. Wall motion was normal; there were no regional wall motion abnormalities. AORTIC VALVE: Trileaflet; mildly thickened leaflets. Doppler: Transvalvular velocity was within the normal range. There was no stenosis. No regurgitation. AORTA: Aortic root: The aortic root was normal in size. MITRAL VALVE: Structurally normal valve. Doppler: Transvalvular velocity was within the normal range. There was no evidence for stenosis. Mild regurgitation. LEFT ATRIUM: The atrium was mildly dilated. RIGHT VENTRICLE: The cavity size was normal. Wall thickness was normal. PULMONIC VALVE: Doppler: Transvalvular velocity was within the normal range. There was no evidence for stenosis. No regurgitation. TRICUSPID VALVE: Structurally normal valve. Doppler: Transvalvular velocity was within the normal range. Mild regurgitation. PULMONARY ARTERY: The main pulmonary artery was normal-sized. Systolic pressure was mildly increased. RIGHT ATRIUM: The atrium was normal in size. PERICARDIUM: There was no pericardial effusion. SYSTEMIC VEINS: Inferior vena cava: The vessel was normal in size. BASIC MEASUREMENTS ADULT Normal Left ventricle LV internal dimension, ED, chordal level, *40 mm 43-52 PLAX LV internal dimension, ES, chordal level, 27.3 mm 23-38 PLAX Fractional shortening, chordal level, PLAX 32 % >29 LV posterior wall thickness, ED 12.2 mm IVS/LVPW ratio, ED *1.47 <1.3 Ventricular septum Septal thickness, ED 17.9 mm Aortic valve Leaflet separation 22 mm 15-26 Right ventricle RV internal dimension, ED, PLAX 31.1 mm 19-38 BASIC MEASUREMENTS ADULT Normal Aortic valve Leaflet separation 22 mm 15-26 Aorta Root diameter, ED 36 mm 20-37 Left atrium Anterior-posterior dimension, ES *43 mm 19-40 LA/aortic root ratio 1.19 DOPPLER MEASUREMENTS ADULT Normal Main pulmonary artery Pressure, S *45 mm Hg =30 Tricuspid valve Regurgitant peak velocity 296 cm/s Peak RV-RA gradient, S 35 mm Hg Maximal regurgitant velocity 296 cm/s Systemic veins Estimated CVP 10 mm Hg Right ventricle RV pressure, S *45 mm Hg <30 LEGEND: Mean values are shown as u=mean value. Asterisk (*) tirado values outside specified normal range. Prepared and signed by Angelica Sotomayor [id number]
[2016-08-22] MEDS: ACETAMINOPHEN/HYDROcodone 325 MG/5 MG TAB PO PRN (18:34)
[2016-08-22] MEDS: hydrALAZINE HCL 10 MG TAB PO PRN (18:41)
[2016-08-22] MEDS: PRAVASTATIN SOD 80 MG TAB PO SCH (21:00)
[2016-08-22] MEDS: DEXAMETHASONE SOD PHOS 4 MG/ML VIAL IV PUSH SCH (22:08)
--- NOTE | 2016-08-22 22:15 | HHI.PR ---
Addendum to Inpatient Note Addendum Reason: Additional Documentation Additional Information Subjective Paged regarding decreased level of consciousness. Around 1800 patient had received 10 mg Berry (her usual dose) as well as her hydralazine. The staff was called by patient's a couple hours later due to concern about drowsiness and decreased level of responsiveness. Nursing staff had difficulty waking patient from sleep after several attempts, so called for evaluation. Objective VS: T 98.7, HR 73, BP approx 120/80, RR 18, SPO2 95% on room air Gen: WDWN pale adult white female sleeping in bed EYE: Pupils equal, round, reactive to light (no miosis). CV: NRRR, normal S1/S2, no MRG. Telemetry reviewed, patient had short (< 4 beat ) run of VT at 1800, otherwise unremarkable. LUNG: CTAB NEURO: Drowsy, awakens to touch. After some effort to awaken, follows commands, states she is fine. Easily drifts back to sleep. 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 Moves all extremities well. Assessment and Plan 55 year old female admitted for N/V Had been evaluated by neurology this hospital stay due to similar episode of decreased level of consciousness. At that time CT head performed and unremarkable. Currently being worked up by admitting team for AI given prior hypotension responding to Decadron and adrenal mass on CT. Workup ordered for AM. Neurologic exam grossly non-focal. * Monitor more closely for next sets of vitals (Q1-2 hours for 4 sets, if vital stable and patient same or better on evaluation, can be discontinued). * Due to receive Decadron at 2100; will check back and see if that helps (may support AI diagnosis) * Telemetry review and exam benign, unlikely to be cardiac or pulmonary etiology * Afebrile, infectious etiology unlikely Update: On 1 hour re-check, patient awoke to name alone without physical stimulation. Still responded to commands, still drifting back to sleep easily. Another set of vitals reviewed and wnl. dw Dr. Ugo Norman,Maurisio Lorenzana MD R1 Aug 22, 2016 22:15
[2016-08-23] VITALS (12 sets, daily range): BP systolic 116–202; BP diastolic 71–101; PULSE 61–79; RESP 16–20; TEMP 97.4–99.1; O2SAT 93–99
[2016-08-23] MEDS: INSULIN ASPART SUPPLEMENTAL SCALE SQ SCH ×5 (00:30→23:24)
[2016-08-23] MEDS: hydrALAZINE HCL 10 MG TAB PO PRN ×2 (04:11→21:42)
[2016-08-23] MEDS: DEXT 5%-NACL 0.9% 1000 ML INJ 1,000 ML IV SCH ×2 (06:13→22:20)
[2016-08-23 07:43] LABS: AUTOMATED NEUTROPHIL # 6.6 TH/MM3 (1.8-7.7); BASOPHIL % 0.4 % (0.0-2.0); EOSINOPHIL % 0.1 % (0.0-4.0); HEMO FLAGS DIFF FINAL; LYMPH % 18.6 % (9.0-44.0); LYMPHOCYTE # 1.6 TH/MM3 (1.0-4.8); MEAN CELL VOLUME 83.8 FL (80.0-100.0); MEAN CORPUSCULAR HEMOGLOBIN 29.7 PG (27.0-34.0); MEAN CORPUSCULAR HGB CONC 35.5 % (32.0-36.0); MONO % 3.9 % (0.0-8.0); PLATELET COUNT 248 TH/MM3 (150-450); RED BLOOD COUNT 2.99 MIL/MM3 (4.00-5.30); RED CELL DISTRIBUTION WIDTH 14.7 % (11.6-17.2); WHITE BLOOD COUNT 8.6 TH/MM3 (4.0-11.0)
[2016-08-23 07:52] LABS: APTT (PATIENT) 33.8 SEC (24.3-30.1); INTERNATIONAL NORMALIZED RATIO 1.8 RATIO; PROTHROMBIN TIME - PATIENT 20.5 SEC (9.8-11.6)
[2016-08-23] MEDS: GABAPENTIN 400 MG CAP PO SCH ×2 (08:09→21:06)
[2016-08-23] MEDS: DEXAMETHASONE SOD PHOS 4 MG/ML VIAL IV PUSH SCH (08:09)
[2016-08-23] MEDS: GABAPENTIN 300 MG CAP PO SCH ×2 (08:10→21:07)
[2016-08-23] MEDS: risperiDONE 1 MG TAB PO SCH (08:10)
[2016-08-23] MEDS: ASPIRIN EC 81 MG TABEC PO SCH (08:10)
[2016-08-23] MEDS: SODIUM CHLORIDE 0.9% FLUSH 5 ML FLUSH FLUSH SCH ×2 (08:10→21:00)
[2016-08-23] MEDS: PANTOPRAZOLE SODIUM 40 MG VIAL IV PUSH SCH (08:10)
[2016-08-23 08:13] LABS: ALKALINE PHOSPHATASE 81 U/L (45-117); ALT (GPT) 14 U/L (10-53); ANION GAP 7 MEQ/L (5-15); AST (GOT) 13 U/L (15-37); BICARBONATE 23.6 MEQ/L (21.0-32.0); BLOOD UREA NITROGEN 15 MG/DL (7-18); CHLORIDE 112 MEQ/L (98-107); GLOMERULAR FILTRATION RATE 43 ML/MIN (>89); MAGNESIUM 1.5 MG/DL (1.5-2.5); POTASSIUM 4.4 MEQ/L (3.5-5.1); SODIUM (NA) 143 MEQ/L (136-145); TOTAL BILIRUBIN ADULT 0.2 MG/DL (0.2-1.0)
[2016-08-23 08:16] LABS: CREATINE KINASE 22 U/L (26-192)
--- NOTE | 2016-08-23 08:17 | HHI.FPPN ---
Subjective Remarks Patient seen and examined with Dr. Hemphill this morning. Patient received Decadron around 2100. Had episode of drowsiness and decreased level of responsiveness last night around 2200. Night resident responded. Neuro exam was unremarkable. She was re-evaluated an hour later and drowsiness had resolved. She was awake, alert, and oriented. No other acute events overnight. BP has been running high this morning. BP around 730 was 202/101. This morning, she is awake, alert, oriented, and more talkative. States that she feels better. No specific complaints. (Arcelia Venegas MD R3) Objective Vitals Vital Signs Date Time Temp Pulse Resp B/P Pulse Ox O2 Delivery O2 Flow Rate FiO2 08/23/16 07:53 97.4 78 20 202/101 95 08/23/16 04:00 98.7 66 16 165/93 93 08/23/16 02:00 98.9 62 18 163/91 93 08/23/16 01:00 98.7 61 16 122/71 95 08/23/16 00:00 97.8 61 16 148/80 93 08/22/16 23:00 96.8 62 20 139/71 93 08/22/16 22:00 96.0 71 18 115/61 95 08/22/16 21:20 73 18 134/72 96 08/22/16 21:15 73 18 125/68 94 08/22/16 20:00 98.7 70 16 117/70 98 08/22/16 20:00 77 08/22/16 16:32 98.4 75 18 165/89 96 08/22/16 13:01 97.2 80 18 145/76 97 08/22/16 12:00 74 08/22/16 12:00 98.6 74 21 147/84 95 08/22/16 11:28 98.7 64 19 150/75 99 08/22/16 10:00 79 08/22/16 08:15 97 21 I/O 08/22/16 08/22/16 08/22/16 08/23/16 08/23/16 08/23/16 07:00 15:00 23:00 07:00 15:00 23:00 Intake Total 486 ml 240 ml 900 ml Output Total 450 ml 450 ml 300 ml Balance 486 ml -210 ml -450 ml 600 ml Intake Oral 0 ml 240 ml 60 ml IV Total 486 ml 840 ml Output Urine Total 450 ml 450 ml 300 ml # Voids 1 # Bowel Movements 0 (Arcelia Venegas MD R3) Result Diagram: 08/23/16 0719 08/22/[address] 08/21/16 0000 Signed Impressions: Service Date/Time: Sunday, August 21, 2016 15:29 - CONCLUSION: No acute findings. Stable appearance to the left old frontoparietal infarction and infarction in the left anterior external capsule. Jordan Hensley MD Chest X-Ray 08/21/16 0000 Signed Impressions: Service Date/Time: Sunday, August 21, 2016 14:28 - CONCLUSION: Mild right lower lung atelectasis. Otherwise lungs are grossly clear. Julius Garcia MD Abdomen/Pelvis CT 08/20/16 1049 Signed Impressions: Service Date/Time: Saturday, August 20, 2016 11:28 - CONCLUSION: Essentially stable scan of the abdomen and pelvis other than apparent removal of a Cardoso catheter with a small amount residual air anteriorly in the urinary bladder. No acute intra-abdominal or pelvic process. The right lower lobe parenchymal infiltrate has progressed to a more rounded appearance and cicatrization Long Garber MD Gastric Emptying Nuclear Medicine 08/20/16 0000 Signed Impressions: Service Date/Time: Saturday, August 20, 2016 15:55 - CONCLUSION: Unremarkable study. Tiesha Quinteros MD Objective Remarks GENERAL: Pale middle aged female. Appears older than stated age. In NAD. SKIN: No rashes, ecchymoses or lesions. Cool and dry. EYES: Extraocular motions intact. No scleral icterus. No injection or drainage. ENT: Nose without bleeding, purulent drainage or septal hematoma. Throat without erythema, tonsillar hypertrophy or exudate. Uvula midline. Airway patent. MMM. CARDIOVASCULAR: Regular rate and rhythm without murmurs, gallops, or rubs. +2 peripheral pulses. RESPIRATORY: Non-labored. CTAB. No adventitious sounds. GASTROINTESTINAL: Abdomen soft, non-tender, nondistended. Active bowel sounds. No hepato-splenomegaly, or palpable masses. No guarding. MUSCULOSKELETAL: Extremities without clubbing, cyanosis, or edema. No joint tenderness, effusion, or edema noted. No calf tenderness. NEUROLOGICAL: Awake and alert. Sensation and motor grossly WNL. Speech is slow but appears to be at baseline. (Arcelia Venegas MD R3) A/P Assessment and Plan 55 year old female admitted for worsening nausea/vomiting and JAMAL. Had several episodes of hypotension and is now being worked up for adrenal insufficiency and possible GIB. Discharge Planning Timeframe for discharge is unclear at this point. Scheduled for scope by GI tomorrow. Discussed with Dr. Hemphill (Arcelia Venegas MD R3) Attending Attestation Patient seen and examined. Case reviewed and discussed with the resident team. Agree with plan of care as discussed with me and documented in the resident note. her am cortisol level was low. this supports having adrenal insufficiency. unfortunately, Endocrine does not come to the hospital so we will start meds for adrenal insufficiency and can refer to Endocrine as an outpt. She had classic s/s of hypoglycemia and hypotension when not on steroids and is back to her usual HTN when on steroids. She also had weight loss and no appetite, fatigue and weakness and orthostatic sxs off steroids which supports that diagnosis as well. her ACTH level is pending and urine tests. (Pauly Hemphill MD) Problem List: (1) Nausea & vomiting Status: Acute Plan: Improved with Reglan. Appears to be a chronic issue. Likely has gastritis /ulcer based on ?h/o hematemesis at home. Also concern for GI malignancy v hormone-secreting adrenal adenoma. -VS Q3H -Was gettng decadron 2 mg IV daily for control of nausea; however will switch to po Hydrocortisone and Flucortisone for suspected AI. -Continue Zofran prn. Hold reglan and citalopram at this time, given concern for QT prolongation. Continue telemetry. -INR down to 1.8 today. Anticipate EGD/Colonoscopy in AM per GI. Coumadin currently on hold. -blood cx 08/20 NGTD; repeat blood cx 08/21 pending -gastric emptying study negative (2) Adrenal adenoma Status: Acute Plan: CT on 08/21/16 significant for 2.3 cm persistent adenoma of left adrenal gland. In addition, she has had labile BPs with episodes of hypotension on 08/21 that improved s/p Decadron. -Cortisol level on 08/22 11.1 and repeat today 1.8. Suspect possible adrenal insufficiency -Will transition to po Hydrocortisone 25mg po BID and Flucortisone 0.1mg daily. -Likely further workup as outpatient and referral to endocrinology -Urine cortisol pending (3) JAMAL (acute kidney injury) Status: Acute Plan: Improving. Cr 1.28 today. Uncertain baseline Cr. Lowest level this year was 1.6. WNL in 2015. ?h/o CKD related to DM. -s/p 1 L bolus in the ED -cont D5 NS at 75 MLS/hr -Encourage PO intake -UA looks clear, no cx indicated (4) Right pulmonary infiltrate on CXR Status: Acute Plan: Likely atelectasis v resolving PNA. Doubt acute infection. -s/p cefepime and azithromycin x1 in the ED -hold off on further antibiotic therapy at this time as patient adequately treated for recent ?PNA and UTI. Restart cefepime and azithromycin if clinical deterioration. (5) Anemia Status: Acute Plan: Uncertain cause, questionable GIB, Hb currently stable however is low compared to 10.3 on admission. Was as high as 12.5 earlier this month. -occult blood stool neg x1. Hemoccult negative in the ED on admission. -Iron studies low,will consider iron supplements. -GI consulted and plan for endoscopy tomorrow (08/24) -trend daily CBC (6) Diabetes Status: Acute Plan: Recent A1c of 5. On metformin monotherapy. -hold metformin in hospital -ss insulin -cont home gabapentin (7) HTN (hypertension) Status: Acute Plan: On lisinopril at home. Had episodes of hypotension on 08/21; however BP elevated at this time. -Lisinopril currently on hold given JAMAL -PRN hydralazine -Patient on steroids for suspected adrenal insufficiency as well as n/v. (8) Hyperlipidemia Status: Chronic Plan: Cont home statin (9) Hypothyroid Status: Acute Plan: History of hypothyroidism. Most recent TSH low at 0.08. Not currently on thyroid medication at home. -TSH 5 on admission, within range for stress RXN (10) Depression with anxiety Status: Acute Plan: cont home citalopram. PRN ativan. (11) History of CVA (cerebrovascular accident) Status: Resolved Plan: On warfarin therapy at home. 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 -Warfarin on hold in anticipation of EGD/Colonoscopy. -However given her history of multiple CVA, will keep on ppx dose of Heparin for today and stop this evening in anticipation for scope tomorrow. (12) DEN (obstructive sleep apnea) Status: Acute Plan: Has home CPAP however cannot bring machine to the hospital. Will consult RT to see if she can use BIPAP/CPAP machine here (13) Dietary counseling and surveillance Status: Acute Plan: Diet: 1800 cons carb. Glucerna supp for low protein. NPO after midnight. Fluids: as above DVT ppx: Currently on Heparin in anticipation for scope tomorrow. Will transition to Coumadin after procedure. GI ppx: zantac (Arcelia Venegas MD R3) Problem Qualifiers (1) Nausea & vomiting: Qualified Code: R11.2 - Intractable vomiting with nausea, unspecified vomiting type (2) Anemia: Qualified Code: D64.89 - Anemia due to other cause, not classified (3) Diabetes: Qualified Code: E11.42 - Type 2 diabetes mellitus with diabetic polyneuropathy , without long-term current use of insulin (4) HTN (hypertension): Qualified Code: I10 - Essential hypertension Arcelia Venegas MD R3 Aug 23, 2016 08:17 Pauly Hemphill MD Aug 23, 2016 12:28
[2016-08-23] MEDS: HEPARIN SODIUM - SQ 10,000 UNITS/ML VIAL SQ SCH ×2 (09:30→16:56)
[2016-08-23] MEDS ORDERED: PILL SPLITTER OTHER PRN (09:30)
--- NOTE | 2016-08-23 09:38 | HHI.GIFU ---
Subjective Remarks Resting in bed. No n/v. Generalized weakness. D/W patient egd/colonoscopy and she is agreeable. (Noreen Au) Objective Vitals I&O Vital Signs Date Time Temp Pulse Resp B/P Pulse Ox O2 Delivery O2 Flow Rate FiO2 08/23/16 07:53 97.4 78 20 202/101 95 08/23/16 04:00 98.7 66 16 165/93 93 08/23/16 02:00 98.9 62 18 163/91 93 08/23/16 01:00 98.7 61 16 122/71 95 08/23/16 00:00 97.8 61 16 148/80 93 08/22/16 23:00 96.8 62 20 139/71 93 08/22/16 22:00 96.0 71 18 115/61 95 08/22/16 21:20 73 18 134/72 96 08/22/16 21:15 73 18 125/68 94 08/22/16 20:00 98.7 70 16 117/70 98 08/22/16 20:00 77 08/22/16 16:32 98.4 75 18 165/89 96 08/22/16 13:01 97.2 80 18 145/76 97 08/22/16 12:00 74 08/22/16 12:00 98.6 74 21 147/84 95 08/22/16 11:28 98.7 64 19 150/75 99 08/22/16 10:00 79 I/O 08/22/16 08/22/16 08/22/16 08/23/16 08/23/16 08/23/16 07:00 15:00 23:00 07:00 15:00 23:00 Intake Total 486 ml 240 ml 900 ml Output Total 450 ml 450 ml 300 ml Balance 486 ml -210 ml -450 ml 600 ml Intake Oral 0 ml 240 ml 60 ml IV Total 486 ml 840 ml Output Urine Total 450 ml 450 ml 300 ml # Voids 1 # Bowel Movements 0 Laboratory Laboratory Tests Test 08/22/16 08/22/16 08/23/16 09:44 12:46 07:19 Iron Level 38 Total Iron Binding Capacity 200 Percent Iron Saturation 19.0 Random Cortisol 11.1 1.8 Urine Opiates Screen NEG Urine Barbiturates Screen NEG Urine Amphetamines Screen NEG Urine Benzodiazepines Screen NEG Urine Cocaine Screen NEG Urine Cannabinoids Screen POS White Blood Count 8.6 Red Blood Count 2.99 Hemoglobin 8.9 Hematocrit 25.0 Mean Corpuscular Volume 83.8 Mean Corpuscular Hemoglobin 29.7 Mean Corpuscular Hemoglobin 35.5 Concent Red Cell Distribution Width 14.7 Platelet Count 248 Mean Platelet Volume 7.2 Neutrophils (%) (Auto) 77.0 Lymphocytes (%) (Auto) 18.6 Monocytes (%) (Auto) 3.9 Eosinophils (%) (Auto) 0.1 Basophils (%) (Auto) 0.4 Neutrophils # (Auto) 6.6 Lymphocytes # (Auto) 1.6 Monocytes # (Auto) 0.3 Eosinophils # (Auto) 0.0 Basophils # (Auto) 0.0 CBC Comment DIFF FINAL Differential Comment Prothrombin Time 20.5 Prothromb Time International 1.8 Ratio Activated Partial 33.8 Thromboplast Time Sodium Level 143 Potassium Level 4.4 Chloride Level 112 Carbon Dioxide Level 23.6 Anion Gap 7 Blood Urea Nitrogen 15 Creatinine 1.28 Estimat Glomerular Filtration 43 Rate Random Glucose 118 Lactic Acid Level 1.2 Calcium Level 8.0 Phosphorus Level 2.5 Magnesium Level 1.5 Total Bilirubin 0.2 Aspartate Amino Transf 13 (AST/SGOT) Alanine Aminotransferase 14 (ALT/SGPT) Alkaline Phosphatase 81 Total Creatine Kinase 22 Total Protein 5.8 Albumin 2.5 Date/Time Procedure Status Source Growth 08/21/16 16:26 Aerobic Blood Culture - Preliminary Resulted Blood Peripheral NO GROWTH IN 1 DAY 08/21/16 16:26 Anaerobic Blood Culture - Preliminary Resulted Blood Peripheral NO GROWTH IN 1 DAY 08/21/16 10:00 Stool Occult Blood (JANAE) - Final Complete Stool Stool HEMOCCULT NEGATIVE Imaging Last Impressions Head CT 08/21/16 0000 Signed Impressions: Service Date/Time: Sunday, August 21, 2016 15:29 - CONCLUSION: No acute findings. Stable appearance to the left old frontoparietal infarction and infarction in the left anterior external capsule. Jordan Hensley MD Chest X-Ray 08/21/16 0000 Signed Impressions: Service Date/Time: Sunday, August 21, 2016 14:28 - CONCLUSION: Mild right lower lung atelectasis. Otherwise lungs are grossly clear. Julius Garcia MD Abdomen/Pelvis CT 08/20/16 1049 Signed Impressions: Service Date/Time: Saturday, August 20, 2016 11:28 - CONCLUSION: Essentially stable scan of the abdomen and pelvis other than apparent removal of a Cardoso catheter with a small amount residual air anteriorly in the urinary bladder. No acute intra-abdominal or pelvic process. The right lower lobe parenchymal infiltrate has progressed to a more rounded appearance and cicatrization Long Graber MD Gastric Emptying Nuclear Medicine 08/20/16 0000 Signed Impressions: Service Date/Time: Saturday, August 20, 2016 15:55 - CONCLUSION: Unremarkable study. Tiesha Quinteros MD Physical Exam HEENT: Normocephalic; atraumatic; no jaundice. Throat is clear. NECK: Neck is supple, no JVD, no lymphadenopathy. CHEST: CTA CARDIAC: RRR ABDOMEN: Soft, nondistended, nontender; no hepatosplenomegaly; bowel sounds are present in all four quadrants. EXTREMITIES: No clubbing, cyanosis, or edema. SKIN: Generalized pallor TEAM PHYSICIAN: Lethargic and oriented times three. Generalized weakness (Noreen Au FLAT BED KNITTER) Assessment and Plan Plan ASSESSMENT: - Recurrent Nausea/Vomiting. Abdomen/Pelvis CT (08/20/16)-------> Essentially stable scan of the abdomen and pelvis other than apparent removal of a Cardoso catheter with a small amount residual air anteriorly in the urinary bladder. No acute intra-abdominal or pelvic process. The right lower lobe parenchymal infiltrate has progressed to a more rounded appearance and cicatrization. GES (08/20/16)-----> Unremarkable study. According to medical reports, she had colonoscopy in 2013 and that showed polyps. Lipase, LFTs normal. Currently not having n/v. PPI. - Anemia. H/H 8.9/25.0. Pt is normally on Coumadin but this is being held in anticipation of EGD/Colonoscopy. - CVA, Coumadin on hold in anticipation of EGD/Colonoscopy. Has been cleared for endoscopic procedures by neurology - JAMAL. Creat 1.28. - Right pulmonary infiltrate on CXR- with hx of recent PNA, this is improving - DM, HTN, hx of CVA ( on Coumadin), per attending Plan: - Plan for EGD/colonoscopy in am (Cleared by Neurology, INR < 2.0) - Obtain consents - Clear liquids - NPO after MN - Golytely prep - PPI - Reglan - Monitor HH - Transfuse as necessary - Getting heparin today, but to be held after tonight's dose - Supportive care - Further recommendations to follow based on results of above - Patient seen and examined by Dr. aTylor and myself and this note is written on his behalf. (Noreen Au) Physician Comments Patient seen and examined Agree with above Continue with current supportive care Monitor labs (Freedom Taylor MD) Noreen Au Aug 23, 2016 09:38 Freedom Taylor MD Aug 23, 2016 23:08
[2016-08-23] MEDS: HYDROCORTISONE 10 MG TAB PO SCH ×2 (11:14→21:07)
[2016-08-23] MEDS: FLUDROCORTISONE ACETATE 0.1 MG TAB PO SCH (11:14)
[2016-08-23] MEDS ORDERED: PEG (High)/E-LYTE SOLN 4000 ML BTL PO ONE (16:00)
[2016-08-23] MEDS: PRAVASTATIN SOD 80 MG TAB PO SCH (21:07)
[2016-08-23] MEDS: LORazepam 1 MG TAB PO PRN (21:07)
[2016-08-24] VITALS (11 sets, daily range): BP systolic 141–192; BP diastolic 76–102; PULSE 70–84; RESP 14–20; TEMP 96.1–98.3; O2SAT 93–98
[2016-08-24] MEDS: hydrALAZINE HCL 10 MG TAB PO PRN (04:35)
[2016-08-24] MEDS ORDERED: DEXAMETHASONE SOD PHOS 4 MG/ML VIAL IV PUSH ONE (06:00)
[2016-08-24] MEDS: INSULIN ASPART SUPPLEMENTAL SCALE SQ SCH ×3 (06:00→18:00)
[2016-08-24] MEDS: LORazepam 1 MG TAB PO PRN (06:56)
[2016-08-24] MEDS: PANTOPRAZOLE SODIUM 40 MG VIAL IV PUSH SCH (06:56)
[2016-08-24 07:37] LABS: AUTOMATED NEUTROPHIL # 6.5 TH/MM3 (1.8-7.7); BASOPHIL % 0.3 % (0.0-2.0); EOSINOPHIL % 0.3 % (0.0-4.0); HEMATOCRIT 25.7 % (35.0-46.0); HEMO FLAGS DIFF FINAL; LYMPH % 26.9 % (9.0-44.0); LYMPHOCYTE # 2.6 TH/MM3 (1.0-4.8); MEAN CELL VOLUME 84.2 FL (80.0-100.0); MEAN CORPUSCULAR HEMOGLOBIN 28.1 PG (27.0-34.0); MEAN CORPUSCULAR HGB CONC 33.4 % (32.0-36.0); MONO % 4.4 % (0.0-8.0); NEUT % 68.1 % (16.0-70.0); PLATELET COUNT 226 TH/MM3 (150-450); RED BLOOD COUNT 3.05 MIL/MM3 (4.00-5.30); RED CELL DISTRIBUTION WIDTH 14.8 % (11.6-17.2); WHITE BLOOD COUNT 9.5 TH/MM3 (4.0-11.0)
[2016-08-24 07:55] LABS: INTERNATIONAL NORMALIZED RATIO 2.5 RATIO; PROTHROMBIN TIME - PATIENT 28.8 SEC (9.8-11.6)
[2016-08-24] MEDS ORDERED: ENALAPRILAT 1.25 MG/ML VIAL IV PUSH PRN (08:45)
--- NOTE | 2016-08-24 08:50 | HHI.FPPN ---
Subjective Remarks Patient seen and examined. No acute events overnight; however BP has been elevated throughout the night. BP this morning 184/89. States that she feels lousy this morning because she could not sleep last night. Was up all night going to the bathroom secondary to the GI prep for her endoscopy this morning. No other complaints. (Arcelia Venegas MD R3) Objective Vitals Vital Signs Date Time Temp Pulse Resp B/P Pulse Ox O2 Delivery O2 Flow Rate FiO2 08/24/16 06:58 18 08/24/16 06:48 20 184/89 98 08/24/16 03:14 81 08/24/16 00:00 96.1 75 18 192/92 97 08/23/16 21:45 98 Bi-Pap 10.00 08/23/16 21:33 71 20 169/99 97 08/23/16 21:30 Full Face Mask 21.0 08/23/16 20:00 97.4 68 18 171/82 96 08/23/16 15:53 99.1 74 18 149/86 95 08/23/16 13:23 75 08/23/16 12:22 97.6 79 18 116/87 95 08/23/16 08:50 94 21 I/O 08/23/16 08/23/16 08/23/16 08/24/16 08/24/16 08/24/16 06:59 14:59 22:59 06:59 14:59 22:59 Intake Total 900 ml 420 ml 0 ml Output Total 300 ml 1000 ml 1550 ml Balance 600 ml 420 ml -1000 ml -1550 ml Intake Oral 60 ml 420 ml 0 ml IV Total 840 ml Output Urine Total 300 ml 1000 ml 1550 ml # Bowel Movements 3 (Arcelia Venegas MD R3) Result Diagram: 08/24/16 0656 08/23/16 0719 Imaging Last Impressions Head CT 08/21/16 0000 Signed Impressions: Service Date/Time: Sunday, August 21, 2016 15:29 - CONCLUSION: No acute findings. Stable appearance to the left old frontoparietal infarction and infarction in the left anterior external capsule. Jordan Hensley MD Chest X-Ray 08/21/16 0000 Signed Impressions: Service Date/Time: Sunday, August 21, 2016 14:28 - CONCLUSION: Mild right lower lung atelectasis. Otherwise lungs are grossly clear. Julius Garcia MD Abdomen/Pelvis CT 08/20/16 1049 Signed Impressions: Service Date/Time: Saturday, August 20, 2016 11:28 - CONCLUSION: Essentially stable scan of the abdomen and pelvis other than apparent removal of a Cardoso catheter with a small amount residual air anteriorly in the urinary bladder. No acute intra-abdominal or pelvic process. The right lower lobe parenchymal infiltrate has progressed to a more rounded appearance and cicatrization Long Garber MD Gastric Emptying Nuclear Medicine 08/20/16 0000 Signed Impressions: Service Date/Time: Saturday, August 20, 2016 15:55 - CONCLUSION: Unremarkable study. KLiv Quinteros MD Objective Remarks GENERAL: Pale middle aged female. Appears older than stated age. In NAD. SKIN: No rashes, ecchymoses or lesions. Cool and dry. EYES: Extraocular motions intact. No scleral icterus. No injection or drainage. ENT: Nose without bleeding, purulent drainage or septal hematoma. Throat without erythema, tonsillar hypertrophy or exudate. Uvula midline. Airway patent. MMM. CARDIOVASCULAR: Regular rate and rhythm without murmurs, gallops, or rubs. +2 peripheral pulses. RESPIRATORY: Non-labored. CTAB. No adventitious sounds. GASTROINTESTINAL: Abdomen soft, non-tender, nondistended. Active bowel sounds. No hepato-splenomegaly, or palpable masses. No guarding. MUSCULOSKELETAL: Extremities without clubbing, cyanosis, or edema. No joint tenderness, effusion, or edema noted. No calf tenderness. NEUROLOGICAL: Awake and more alert compared to yesterday. Answers questions appropriately. Sensation and motor grossly WNL. Speech is slow but appears to be at baseline. (Arcelia Venegas MD R3) A/P Assessment and Plan 55 year old female admitted for worsening nausea/vomiting and JAMAL. Had several episodes of hypotension on 08/21 but now BPs are elevated. Work up for adrenal insufficiency and possible GIB pending. Discharge Planning Timeframe for discharge is unclear at this point. Scheduled for scope by GI today Discussed with Dr. Hemphill (Arcelia Venegas MD R3) Attending Attestation Patient seen and examined. Case reviewed and discussed with the resident team. Agree with plan of care as discussed with me and documented in the resident note. she is feeling better overall despite having to do GI prep. She is more energetic and has a better appetite. Her maximum weight was 107K and now is 85K so she lost quite a bit of weight without trying due to poor appetite (Pauly Hemphill MD) Problem List: (1) Nausea & vomiting Status: Acute Plan: Improved. Appears to be a chronic issue. Likely has gastritis/ulcer based on ?h/o hematemesis at home. Also concern for GI malignancy vs. ulcer. -Continue Zofran prn. Hold reglan and citalopram at this time, given concern for QT prolongation. Continue telemetry. -Anticipate EGD/Colonoscopy in AM per GI. Coumadin currently on hold; however INR 2.5 this morning. Will give 4 units of FFP per GI. -blood cx 08/20 NGTD; repeat blood cx 08/21 NGTD -gastric emptying study negative (2) Adrenal adenoma Status: Acute Plan: CT on 08/21/16 significant for 2.3 cm persistent adenoma of left adrenal gland. In addition, she has had labile BPs with episodes of hypotension on 08/21 that improved s/p Decadron. Cortisol level on 08/22 11.1 and repeat was1.8. -Per discussion with radiologist, mass on L. adrenal gland is benign/ nonfunctional and likely a lipoma. Patient's symptoms fit diagnosis of adrenal insufficiency clinically. Appears to be doing better after receiving steroids. Will continue Hydrocortisone 25mg BID and Flucortisone 0.1mg daily. Did get a dose of Decadron 2mg IV x 1 this morning since she will be undergoing endoscopy -Consider further workup as outpatient and referral to endocrinology -Urine cortisol and ACTH pending. (3) JAMAL (acute kidney injury) Status: Acute Plan: Improving. Uncertain baseline Cr. Lowest level this year was 1.6. WNL in 2015. ?h/o CKD related to DM. -s/p 1 L bolus in the ED -cont D5 NS at 75 MLS/hr -Encourage PO intake -UA looks clear, no cx indicated (4) Right pulmonary infiltrate on CXR Status: Acute Plan: Likely atelectasis v resolving PNA. -s/p cefepime and azithromycin x1 in the ED -hold off on further antibiotic therapy at this time as patient adequately treated for recent ?PNA and UTI. Restart cefepime and azithromycin if clinical deterioration. (5) Anemia Status: Acute Plan: Uncertain cause, questionable GIB, Hb currently stable however is low compared to 10.3 on admission. Was as high as 12.5 earlier this month. -occult blood stool neg x1. Hemoccult negative in the ED on admission. -Iron studies low, will consider iron supplements. -GI consulted and plan for endoscopy today (08/24) (6) Diabetes Status: Acute Plan: Recent A1c of 5. On metformin monotherapy. -hold metformin in hospital -ss insulin -cont home gabapentin (7) HTN (hypertension) Status: Acute Plan: On lisinopril at home. Had episodes of hypotension on 08/21; however BP elevated now. -Add Vasotec 1.25mg prn since patient is now NPO for procedure -PRN hydralazine and clonidine -Will resume Lisinopril and will likley need additional oral antihypertensives prior to discharge. Of note, patient does have a history of hypertension with BP as high as 200/100s. States that she was on at least 4-5 antihypertensives at one point in the past. (8) Hyperlipidemia Status: Chronic Plan: Cont home statin (9) Hypothyroid Status: Acute Plan: History of hypothyroidism. Most recent TSH low at 0.08. Not currently on thyroid medication at home. -TSH 5 on admission, within range for stress RXN (10) Depression with anxiety Status: Acute Plan: cont home citalopram. PRN ativan. (11) History of CVA (cerebrovascular accident) Status: Resolved Plan: On warfarin therapy at home. 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 -Warfarin on hold in anticipation of EGD/Colonoscopy. Resume and bridge with Lovenox after procedure. (12) DEN (obstructive sleep apnea) Status: Acute Plan: CPAP at night (13) Dietary counseling and surveillance Status: Acute Plan: Diet: NPO for endoscopy this morning. Advance to 1800 cons carb and Glucerna supp for low protein after procedure Fluids: as above DVT ppx: Chemical anticoagulation on hold for procedure this morning. Will transition to Coumadin after procedure. GI ppx: zantac (Arcelia Venegas MD R3) Problem Qualifiers (1) Nausea & vomiting: Qualified Code: R11.2 - Intractable vomiting with nausea, unspecified vomiting type (2) Anemia: Qualified Code: D64.89 - Anemia due to other cause, not classified (3) Diabetes: Qualified Code: E11.42 - Type 2 diabetes mellitus with diabetic polyneuropathy , without long-term current use of insulin (4) HTN (hypertension): Qualified Code: I10 - Essential hypertension Arcelia Venegas MD R3 Aug 24, 2016 08:50 Pauly Hemphill MD Aug 28, 2016 10:52
[2016-08-24] MEDS: GABAPENTIN 300 MG CAP PO SCH ×2 (08:52→20:36)
[2016-08-24] MEDS: GABAPENTIN 400 MG CAP PO SCH ×2 (08:52→20:36)
[2016-08-24] MEDS: risperiDONE 1 MG TAB PO SCH (08:53)
[2016-08-24] MEDS: ASPIRIN EC 81 MG TABEC PO SCH (08:53)
[2016-08-24] MEDS: FLUDROCORTISONE ACETATE 0.1 MG TAB PO SCH (08:53)
[2016-08-24] MEDS: HYDROCORTISONE 10 MG TAB PO SCH ×2 (08:53→20:36)
[2016-08-24] MEDS: SODIUM CHLORIDE 0.9% FLUSH 5 ML FLUSH FLUSH SCH ×2 (08:54→20:37)
--- NOTE | 2016-08-24 08:57 | HHI.FF ---
Face to Face Verification Diagnosis: (1) HTN (hypertension) (2) History of CVA (cerebrovascular accident) (3) Physical deconditioning Physical Therapy Order: Evaluate and Treat, Improve ambulation, Strength and gait training Home Health Nursing Order: Nursing assessment with vital signs I have seen patient Jennie Velasquez on 08/24/16. My clinical findings support the need for the requested home health care services because: Ltd mobility - disease progression Deconditioned w/ increased weakness High risk of falls I certify that my clinical findings support that this patient is homebound because: Unsteady gait/balance Arcelia Venegas MD R3 Aug 24, 2016 08:57
[2016-08-24 09:24] LABS: BICARBONATE 26.9 MEQ/L (21.0-32.0); POTASSIUM 3.2 MEQ/L (3.5-5.1)
[2016-08-24] MEDS: DEXT 5%-NACL 0.9% 1000 ML INJ 1,000 ML IV SCH (09:54)
[2016-08-24] MEDS: ACETAMINOPHEN/HYDROcodone 325 MG/5 MG TAB PO PRN ×2 (11:21→20:37)
[2016-08-24] MEDS ORDERED: POTASSIUM CHLOR 20 MEQ PREMIX 100 ML IV ONE (12:00)
[2016-08-24] MEDS ORDERED: PROPOFOL 200 MG/20 ML AMP IV ONE (13:46)
[2016-08-24] MEDS ORDERED: SIMETHICONE SUSP DROPS 40 MG/0.6 ML 30 ML BTL ONE (14:03)
--- NOTE | 2016-08-24 14:39 | PD.PROCEDR ---
GI Procedure REFERRING PHYSICIAN Dr. Hemphill PROCEDURE PERFORMED EGD with biopsy and clipping followed by a colonoscopy INDICATION FOR PROCEDURE Nausea vomiting and anemia PROCEDURE: The procedure, risks and benefits were discussed with Ms. Velasquez and informed consent was obtained. Anesthesia sedated her with Diprivan. She was placed in the left lateral decubitus position. EGD: The Pentax videoscope was introduced through the oropharynx and advanced to the second portion of the duodenum under direct visualization. Retroflexion was performed in the stomach. FINDINGS: The esophagus this appeared to be unremarkable and within normal limits The stomach there was a small polyp in the gastric body this was excised using cold biopsy forceps some bleeding was noted and so a clip was placed otherwise gastric mucosa was unremarkable The duodenum this is normal Colonoscopy: The Pentax videoscope was introduced through the rectum and advanced to cecum where the ileocecal valve and appendiceal orifice were identified. Retroflexion was performed in the rectum. Colonic prep was fair FINDINGS: Colonic withdrawal time greater than 6 minutes as the scope was slowly withdrawn colonic mucosa was carefully inspected this was unremarkable and within normal limits all the way through so as retroflexion and rectal examination ESTIMATED BLOOD LOSS: None SPECIMENS REMOVED: Gastric polyp COMPLICATIONS: None IMPRESSION: Gastric polyp Normal colonoscopy PLAN: Await biopsy Advanced diet Monitor labs Colonoscopy in 5 years Freedom Taylor MD Aug 24, 2016 14:39
[2016-08-24] MEDS ORDERED: DO NOT ADM ANY ANTICOAGULANT DRUGS XX PRN (15:30)
[2016-08-24] MEDS: PRAVASTATIN SOD 80 MG TAB PO SCH (20:37)
[2016-08-25] VITALS (7 sets, daily range): BP systolic 150–180; BP diastolic 80–97; PULSE 68–102; RESP 18–20; TEMP 97.2–98.1; O2SAT 90–97
[2016-08-25] MEDS: DEXT 5%-NACL 0.9% 1000 ML INJ 1,000 ML IV SCH ×2 (01:00→14:20)
[2016-08-25] MEDS: hydrALAZINE HCL 10 MG TAB PO PRN (03:58)
[2016-08-25] MEDS: INSULIN ASPART SUPPLEMENTAL SCALE SQ SCH ×3 (05:51→12:23)
[2016-08-25] MEDS: MAGNESIUM SULFATE 1 GM PREMIX 100 ML IV SCH ×2 (08:20→10:17)
[2016-08-25] MEDS: FLUDROCORTISONE ACETATE 0.1 MG TAB PO SCH (08:21)
[2016-08-25] MEDS: ASPIRIN EC 81 MG TABEC PO SCH (08:21)
[2016-08-25] MEDS: GABAPENTIN 300 MG CAP PO SCH (08:21)
[2016-08-25] MEDS: GABAPENTIN 400 MG CAP PO SCH (08:21)
[2016-08-25] MEDS: PANTOPRAZOLE SODIUM 40 MG VIAL IV PUSH SCH (08:21)
[2016-08-25] MEDS: SODIUM CHLORIDE 0.9% FLUSH 5 ML FLUSH FLUSH SCH (08:21)
[2016-08-25] MEDS: HYDROCORTISONE 10 MG TAB PO SCH (08:21)
[2016-08-25] MEDS: risperiDONE 1 MG TAB PO SCH (08:22)
[2016-08-25] MEDS ORDERED: HYDRO10 PO (08:35)
[2016-08-25] MEDS ORDERED: LISI40TA PO (08:35)
[2016-08-25] MEDS ORDERED: FLUD.1 PO (08:35)
[2016-08-25 08:38] LABS: HEMATOCRIT 23.4 % (35.0-46.0); MEAN CELL VOLUME 82.9 FL (80.0-100.0); MEAN CORPUSCULAR HEMOGLOBIN 28.2 PG (27.0-34.0); PLATELET COUNT 199 TH/MM3 (150-450); RED BLOOD COUNT 2.83 MIL/MM3 (4.00-5.30); RED CELL DISTRIBUTION WIDTH 14.9 % (11.6-17.2); REVIEW FLAG FINAL; WHITE BLOOD COUNT 6.5 TH/MM3 (4.0-11.0)
[2016-08-25 08:56] LABS: BICARBONATE 28.2 MEQ/L (21.0-32.0); POTASSIUM 3.6 MEQ/L (3.5-5.1)
[2016-08-25] MEDS ORDERED: LISINOPRIL 20 MG TAB PO SCH (09:00)
--- NOTE | 2016-08-25 10:20 | HHI.FPPN ---
Subjective Remarks Patient seen and examined. She did well after EGD/colonoscopy yesterday. No nausea, vomiting, hematemesis, melena, hematochezia, or diarrhea. BP still elevated. Has been getting prn antihypertensives. Other vital signs stable. is in room with her this morning. Denies any specific complaints. States that she feels better and would like to go home as soon as she can. ( Arcelia Venegas MD R3) Objective Vitals Vital Signs Date Time Temp Pulse Resp B/P Pulse Ox O2 Delivery O2 Flow Rate FiO2 08/25/16 07:56 98.1 80 18 180/85 90 08/25/16 04:16 97.7 72 20 178/97 94 08/25/16 02:30 97.6 98 18 152/80 95 08/25/16 00:20 97.2 102 20 150/84 94 08/25/16 00:04 97.8 68 20 150/84 94 08/24/16 23:00 98.2 70 20 155/87 98 08/24/16 20:25 97.6 80 18 141/76 95 08/24/16 20:00 Room Air 08/24/16 20:00 84 08/24/16 19:45 98.3 72 14 165/86 97 08/24/16 16:00 98.0 77 14 145/90 95 08/24/16 16:00 96.4 76 20 182/102 94 08/24/16 14:41 84 18 167/94 94 08/24/16 14:36 85 18 155/93 94 08/24/16 14:31 98.4 85 18 146/93 94 08/24/16 12:30 97.8 73 14 155/90 97 I/O 08/24/16 08/24/16 08/24/16 08/25/16 08/25/16 08/25/16 07:00 15:00 23:00 07:00 15:00 23:00 Intake Total 0 ml 480 ml 300 ml Output Total 1550 ml 2000 ml 750 ml Balance -1550 ml -2000 ml 480 ml -450 ml Intake Oral 0 ml 480 ml FFP 300 ml Output Urine Total 1550 ml 2000 ml 750 ml # Bowel Movements 3 1 (Arcelia Venegas MD R3) Result Diagram: 08/25/16 0808/25/[address] 08/21/16 0000 Signed Impressions: Service Date/Time: Sunday, August 21, 2016 15:29 - CONCLUSION: No acute findings. Stable appearance to the left old frontoparietal infarction and infarction in the left anterior external capsule. Jordan Hensley MD Chest X-Ray 08/21/16 0000 Signed Impressions: Service Date/Time: Sunday, August 21, 2016 14:28 - CONCLUSION: Mild right lower lung atelectasis. Otherwise lungs are grossly clear. Julius Garcia MD Abdomen/Pelvis CT 08/20/16 1049 Signed Impressions: Service Date/Time: Saturday, August 20, 2016 11:28 - CONCLUSION: Essentially stable scan of the abdomen and pelvis other than apparent removal of a Cardoso catheter with a small amount residual air anteriorly in the urinary bladder. No acute intra-abdominal or pelvic process. The right lower lobe parenchymal infiltrate has progressed to a more rounded appearance and cicatrization Long Garber MD Gastric Emptying Nuclear Medicine 08/20/16 0000 Signed Impressions: Service Date/Time: Saturday, August 20, 2016 15:55 - CONCLUSION: Unremarkable study. Tiesha Quinteros MD Objective Remarks GENERAL: Pale middle aged female. Appears older than stated age. In NAD. SKIN: No rashes, ecchymoses or lesions. Cool and dry. EYES: Extraocular motions intact. No scleral icterus. No injection or drainage. ENT: Nose without bleeding, purulent drainage or septal hematoma. Throat without erythema, tonsillar hypertrophy or exudate. Uvula midline. Airway patent. MMM. CARDIOVASCULAR: Regular rate and rhythm without murmurs, gallops, or rubs. +2 peripheral pulses. RESPIRATORY: Non-labored. CTAB. No adventitious sounds. GASTROINTESTINAL: Abdomen soft, non-tender, nondistended. Active bowel sounds. No hepato-splenomegaly, or palpable masses. No guarding. MUSCULOSKELETAL: Extremities without clubbing, cyanosis, or edema. No joint tenderness, effusion, or edema noted. NEUROLOGICAL: Awake, alert, and oriented to person, place, and time. Answers questions appropriately. Sensation and motor grossly WNL. Speech is slow but appears to be at baseline. (Arcelia Venegas MD R3) A/P Assessment and Plan 55 year old female admitted for worsening nausea/vomiting and JAMAL. Had several episodes of hypotension on 08/21 but now BPs are elevated. Concern for adrenal insufficiency. Clinically improving on oral steroids. Discharge Planning Clinically stable. Anticipate discharge home today with home health PT. Follow up with PCP within one week. WIll need outpatient referral to follow up with endocrinology for further evaluation of possible adrenal insufficiency. Discussed with Dr. Hemphill (Arcelia Venegas MD R3) Attending Attestation Patient seen and examined. Case reviewed and discussed with the resident team. Agree with plan of care as discussed with me and documented in the resident note. Unfortunately, she is returning back to her normal hypertensive and will return to her hyperglycemic state. Discussed with her that her norm is to have these problems and her Hb A1C was more than 14 in the past and she required 4 or 5 antihypertensives. She will follow up with her outpt Dr as these problems willn get worse now that she is not adrenally insufficient. She knows she will need follow up with endocrine as an outpt (Pauly Hemphill MD) Problem List: (1) Nausea & vomiting Status: Acute Plan: Resolved. Etiology unclear. EGD/Colonoscopy negative except for small gastric polyp. Bx pending. F/U with GI as outpatient. -Continue Zofran prn. -blood cx 08/20 NGTD; repeat blood cx 08/21 NGTD -gastric emptying study negative (2) Adrenal adenoma Status: Acute Plan: CT on 08/21/16 significant for 2.3 cm persistent adenoma of left adrenal gland. In addition, she has had labile BPs with episodes of hypotension on 08/21 that improved s/p Decadron. Cortisol level on 08/22 11.1 and repeat was1.8. -Per discussion with radiologist, mass on L. adrenal gland is benign/ nonfunctional and likely a lipoma. Patient's symptoms fit diagnosis of adrenal insufficiency clinically. Appears to be doing better after receiving steroids. Will continue Hydrocortisone 25mg BID and Flucortisone 0.1mg daily. -Consider further workup as outpatient and referral to endocrinology -Urine cortisol and ACTH pending. (3) JAMAL (acute kidney injury) Status: Acute Plan: Improving. Uncertain baseline Cr. Lowest level this year was 1.6. WNL in 2015. ?h/o CKD related to DM. -s/p 1 L bolus in the ED -cont D5 NS at 75 MLS/hr -Encourage PO intake -UA looks clear, no cx indicated (4) Right pulmonary infiltrate on CXR Status: Acute Plan: Likely atelectasis v resolving PNA. -s/p cefepime and azithromycin x1 in the ED -hold off on further antibiotic therapy at this time as patient adequately treated for recent ?PNA and UTI. Restart cefepime and azithromycin if clinical deterioration. (5) Anemia Status: Acute Plan: Likely iron deficiency anema. Hb currently stable however is low compared to 10.3 on admission. Was as high as 12.5 earlier this month. -occult blood stool neg x1. Hemoccult negative in the ED on admission. -Iron studies low, will start ferrous sulfate 325mg po daily. F/U with pcp. -EGD/colonoscopy per GI: Negative. -Repeat outpatient CBC in 1 week. (6) Diabetes Status: Acute Plan: Recent A1c of 5. On metformin monotherapy. -hold metformin in hospital. Resume upon discharge -ss insulin -cont home gabapentin (7) HTN (hypertension) Status: Acute Plan: On lisinopril at home. Had episodes of hypotension on 08/21; however BP elevated now. -Resume home dose of Lisinopril 40mg po daily. Of note, patient does have a history of hypertension with BP as high as 200/100s. States that she was on at least 4-5 antihypertensives at one point in the past. May need additional antihypertensives as an outpatient. -PRN hydralazine and clonidine (8) Hyperlipidemia Status: Chronic Plan: Cont home statin (9) Hypothyroid Status: Acute Plan: History of hypothyroidism. Most recent TSH low at 0.08. Not currently on thyroid medication at home. -TSH 5 on admission, within range for stress RXN (10) Depression with anxiety Status: Acute Plan: cont home citalopram. PRN ativan. (11) History of CVA (cerebrovascular accident) Status: Resolved Plan: On warfarin therapy at home. 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 -Resume Warfarin 5mg po daily. Repeat INR in one week. (12) DEN (obstructive sleep apnea) Status: Acute Plan: CPAP at night (13) Dietary counseling and surveillance Status: Acute Plan: Diet: ADA 1800 cons carb and Glucerna supp for low protein Fluids: as above DVT ppx: Resume Coumadin GI ppx: zantac (Arcelia Venegas MD R3) Problem Qualifiers (1) Nausea & vomiting: Qualified Code: R11.2 - Intractable vomiting with nausea, unspecified vomiting type (2) Anemia: Qualified Code: D64.89 - Anemia due to other cause, not classified (3) Diabetes: Qualified Code: E11.42 - Type 2 diabetes mellitus with diabetic polyneuropathy , without long-term current use of insulin (4) HTN (hypertension): Qualified Code: I10 - Essential hypertension Arcelia Venegas MD R3 Aug 25, 2016 10:20 Pauly Hemphill MD Aug 28, 2016 10:56
[2016-08-25] MEDS ORDERED: ZOFR4TAB PO (10:40)
[2016-08-25] MEDS ORDERED: FERR1TAB36 PO (10:55)
[2016-08-25] MEDS ORDERED: FERROUS SULFATE 325 MG (65 MG ELEMENTAL IRON) TAB PO SCH (11:00)
[2016-08-25 11:23] LABS: INTERNATIONAL NORMALIZED RATIO 1.1 RATIO; PROTHROMBIN TIME - PATIENT 12.1 SEC (9.8-11.6)
[2016-08-25 13:24] LABS: BICARBONATE 27.8 MEQ/L (21.0-32.0); MAGNESIUM 1.8 MG/DL (1.5-2.5); POTASSIUM 3.6 MEQ/L (3.5-5.1)
--- NOTE | 2016-08-25 16:01 | HHI.DS ---
Discharge Summary Admission Date Aug 20, 2016 at 13:59 Discharge Date: Aug 25, 2016 Admitting Diagnosis right lower lobe pneumonia/elevated INR (1) Nausea & vomiting Diagnosis: Principal Plan: Resolved. Etiology unclear. EGD/Colonoscopy negative except for small gastric polyp. Bx pending. F/U with GI as outpatient. -Continue Zofran prn. -blood cx 08/20 NGTD; repeat blood cx 08/21 NGTD -gastric emptying study negative (2) Adrenal adenoma Diagnosis: Principal Plan: CT on 08/21/16 significant for 2.3 cm persistent adenoma of left adrenal gland. In addition, she has had labile BPs with episodes of hypotension on 08/21 that improved s/p Decadron. Cortisol level on 08/22 11.1 and repeat was1.8. -Per discussion with radiologist, mass on L. adrenal gland is benign/ nonfunctional and likely a lipoma. Patient's symptoms fit diagnosis of adrenal insufficiency clinically. Appears to be doing better after receiving steroids. Will continue Hydrocortisone 25mg BID and Flucortisone 0.1mg daily. -Consider further workup as outpatient and referral to endocrinology -Urine cortisol and ACTH pending. (3) JAMAL (acute kidney injury) Diagnosis: Principal Plan: Improving. Uncertain baseline Cr. Lowest level this year was 1.6. WNL in 2014. ?h/o CKD related to DM. -s/p 1 L bolus in the ED -cont D5 NS at 75 MLS/hr -Encourage PO intake -UA looks clear, no cx indicated (4) Right pulmonary infiltrate on CXR Plan: Likely atelectasis v resolving PNA. -s/p cefepime and azithromycin x1 in the ED -hold off on further antibiotic therapy at this time as patient adequately treated for recent ?PNA and UTI. Restart cefepime and azithromycin if clinical deterioration. (5) Anemia Plan: Likely iron deficiency anema. Hb currently stable however is low compared to 10.3 on admission. Was as high as 12.5 earlier this month. -occult blood stool neg x1. Hemoccult negative in the ED on admission. -Iron studies low, will start ferrous sulfate 325mg po daily. F/U with pcp. -EGD/colonoscopy per GI: Negative. -Repeat outpatient CBC in 1 week. (6) Diabetes Plan: Recent A1c of 5. On metformin monotherapy. -hold metformin in hospital. Resume upon discharge -ss insulin -cont home gabapentin (7) HTN (hypertension) Plan: On lisinopril at home. Had episodes of hypotension on 08/21; however BP elevated now. -Resume home dose of Lisinopril 40mg po daily. Of note, patient does have a history of hypertension with BP as high as 200/100s. States that she was on at least 4-5 antihypertensives at one point in the past. May need additional antihypertensives as an outpatient. -PRN hydralazine and clonidine (8) Hyperlipidemia Plan: Cont home statin (9) Hypothyroid Plan: History of hypothyroidism. Most recent TSH low at 0.08. Not currently on thyroid medication at home. -TSH 5 on admission, within range for stress RXN (10) Depression with anxiety Plan: cont home citalopram. PRN ativan. (11) History of CVA (cerebrovascular accident) Plan: On warfarin therapy at home. 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 -Resume Warfarin 5mg po daily. Repeat INR in one week. (12) DEN (obstructive sleep apnea) Plan: CPAP at night (13) Dietary counseling and surveillance Plan: Diet: ADA 1800 cons carb and Glucerna supp for low protein Fluids: as above DVT ppx: Resume Coumadin GI ppx: zantac Consultants GI: Dr. Taylor Critical care: Dr. Jenkins Neurology: Dr. Oquendo Cardiology: Dr. Villalobos Procedures EGD/colonoscopy: 08/24: small gastric polyp otherwise unremarkable. Brief History Ms Velasquez is a 55-year old female with a history of CVA and DM who presented with complaint of worsening nausea and vomiting. In summary, patient seen in ED 08/09 for AMS. Discovered to have ARF. Initial blood culture was positive for MSSA in 07/28 tubes and urine culture grew E. coli. ID was consulted and recommended Zyvox for positive blood culture. Was also started on levaquin for UTI. Patient was discharged home on 5 day course of zyvox and levaquin on after repeat blood cultures negative x2 days. Patient now c/o worsening nausea and vomiting since discharge. Has been afraid to eat since discharge. Nausea does not appear to be related to meals. No reports of bloating. No blood in emesis. No diarrhea. No blood in stool. Has not used anything for nausea. Denies any chest pain or SOB. No new numbness/weakness in extremities or changes in speech. On admission to the ER, CT ab showed no acute process. CT did show persistent RLL infiltrate, which was unchanged from CT ab 08/09. CXR confirmed RLL infiltrate, which appeared improved compared to CXR 08/12. Patient was started on Cefepime and Azithromycin. Given Zofran for nausea. Also given 1 L bolus for JAMAL. Unfortunately, Ms Velasquez is a very poor historian with an impaired memory ever since she had her CVA about 2 years ago. According to her daughter, who was in the room with her, she has had problems with her eating for years. She has lost a significant amount of weight. She has nausea and vomiting that is difficult to predict or know what causes it as the pt cannot explain well what is happening secondary to her poor memory and cognitive function. Her family is able to give the only history. It is unclear if she has some diarrhea as her daughter states she believes her stools are always loose. There also was a complaint by her daughter that she vomited up "dark brown stuff that looked like it could be old blood" however it was never heme tested. Evidently, she is very weak and gets around mainly with a wheelchair but sometimes with a walker. According to her daughter, rehab is not the choice of her family or the pt as Ms Velasquez is afraid and prefers to be at home. This am, pt denies any recent vomiting, pain or diarrhea. CBC/BMP: 08/25/16 0803 08/25/16 1222 Significant Findings Laboratory Tests Test 08/23/16 08/24/16 08/24/16 08/25/16 07:19 06:56 08:30 08:03 Red Blood Count 2.99 MIL/MM3 3.05 MIL/MM3 2.83 MIL/MM3 (4.00-5.30) (4.00-5.30) (4.00-5.30) Hemoglobin 8.9 GM/DL 8.6 GM/DL 8.0 GM/DL (11.6-15.3) (11.6-15.3) (11.6-15.3) Hematocrit 25.0 % 25.7 % 23.4 % (35.0-46.0) (35.0-46.0) (35.0-46.0) Neutrophils (%) (Auto) 77.0 % (16.0-70.0) Prothrombin Time 20.5 SEC 28.8 SEC (9.8-11.6) (9.8-11.6) Activated Partial 33.8 SEC Thromboplast Time (24.3-30.1) Chloride Level 112 MEQ/L (98-107) Creatinine 1.28 MG/DL 1.05 MG/DL (0.50-1.00) (0.50-1.00) Estimat Glomerular Filtration 43 ML/MIN (>89) 62 ML/MIN (>89) 54 ML/MIN (>89) Rate Random Glucose 118 MG/DL (74-106) Calcium Level 8.0 MG/DL 7.8 MG/DL 8.1 MG/DL (8.5-10.1) (8.5-10.1) (8.5-10.1) Aspartate Amino Transf 13 U/L (15-37) (AST/SGOT) Total Creatine Kinase 22 U/L (26-192) Total Protein 5.8 GM/DL (6.4-8.2) Albumin 2.5 GM/DL (3.4-5.0) Potassium Level 3.2 MEQ/L (3.5-5.1) Magnesium Level 1.1 MG/DL (1.5-2.5) Test 08/25/16 08/25/16 11:00 12:22 Prothrombin Time 12.1 SEC (9.8-11.6) Creatinine 1.06 MG/DL (0.50-1.00) Estimat Glomerular Filtration 54 ML/MIN (>89) Rate Random Glucose 196 MG/DL (74-106) Calcium Level 8.3 MG/DL (8.5-10.1) Imaging Head CT 08/21/16 0000 Signed Impressions: Service Date/Time: Sunday, August 21, 2016 15:29 - CONCLUSION: No acute findings. Stable appearance to the left old frontoparietal infarction and infarction in the left anterior external capsule. Jordan Hensley MD Chest X-Ray 08/21/16 0000 Signed Impressions: Service Date/Time: Sunday, August 21, 2016 14:28 - CONCLUSION: Mild right lower lung atelectasis. Otherwise lungs are grossly clear. Julius Garcia MD Abdomen/Pelvis CT 08/20/16 1049 Signed Impressions: Service Date/Time: Saturday, August 20, 2016 11:28 - CONCLUSION: Essentially stable scan of the abdomen and pelvis other than apparent removal of a Cardoso catheter with a small amount residual air anteriorly in the urinary bladder. No acute intra-abdominal or pelvic process. The right lower lobe parenchymal infiltrate has progressed to a more rounded appearance and cicatrization Long Garber MD Gastric Emptying Nuclear Medicine 08/20/16 0000 Signed Impressions: Service Date/Time: Saturday, August 20, 2016 15:55 - CONCLUSION: Unremarkable study. Tiesha Quinteros MD PE at Discharge GENERAL: Pale middle aged female. Appears older than stated age. In NAD. SKIN: No rashes, ecchymoses or lesions. Cool and dry. EYES: Extraocular motions intact. No scleral icterus. No injection or drainage. ENT: Nose without bleeding, purulent drainage or septal hematoma. Throat without erythema, tonsillar hypertrophy or exudate. Uvula midline. Airway patent. MMM. CARDIOVASCULAR: Regular rate and rhythm without murmurs, gallops, or rubs. +2 peripheral pulses. RESPIRATORY: Non-labored. CTAB. No adventitious sounds. GASTROINTESTINAL: Abdomen soft, non-tender, nondistended. Active bowel sounds. No hepato-splenomegaly, or palpable masses. No guarding. MUSCULOSKELETAL: Extremities without clubbing, cyanosis, or edema. No joint tenderness, effusion, or edema noted. NEUROLOGICAL: Awake, alert, and oriented to person, place, and time. Answers questions appropriately. Sensation and motor grossly WNL. Speech is slow but appears to be at baseline. Hospital Course Ms. Velasquez is a 55 year old female who was admitted on 08/20/16 for intractable nausea and vomiting since her discharge from previous hospital admission on 08/09. CT abdomen was negative except for incidental finding of 2.3cm left adrenal adenoma. She received Zofran, Reglan, as well as Decadron during hospitalization for nausea/vomiting. Hospital course is complicated by admission to ICU on 08/21 for altered mental status and hypotension. Critical care consulted. Work up including ABG, head CT, EKG, blood cultures and cardiac enzymes were unremarkable. Mental status improved shortly after ICU transfer. Neurology was consulted and believed that AMS was related to hypotensive syndrome. Recommended continue Coumadin given her history of CVA and PFO. Hypotension,overall clinical picture (including nausea/vomiting) improved with Decadron (in addition she has history of gradual unexplained weight loss, decreased appetite, weakness, fatigue, low glucoses, and some orthostatic sxs, etc.) so we suspect she may have some underlying adrenal insufficiency. Cortisol level on 08/22 was 11.1 and 1.8 the next morning. ACTH and urine cortisol pending. Given clinical picture, we decided to continue patient on oral steroids with Hydrocortisone 25mg BID and Fludrocortisone 0.1mg daily. She will need further evaluation as an outpatient and endocrinology referral. In addition, GI also performed EGD and colonoscopy on 08/24. Scope was unremarkable except for small gastric polyp. Biopsy pending. Iron supplementals were started for iron deficiency anemia. Repeat labs as outpatient. On 08/25/16, patient deemed stable for discharge home with home health PT. Follow up with pcp and GI within one week after hospital discharge. Pt Condition on Discharge: Stable Discharge Disposition: Disch w/ Home Health Serv Discharge Instructions DIET: Follow Instructions for: Diabetic Diet Activities you can perform: Regular-No Restrictions Follow up Referrals: PCP Follow-up - 1 Week with Shan Quick MD R2 New Orders: BASIC METABOLIC PROF - 1 Week CBC NO DIFF - 1 Week PT/INR - 1 Week New Medications: Ferrous Sulfate (Iron) 325 Mg Tab 325 MG PO DAILY Take Nutritional Supplement #30 Ref 0 TAB Ondansetron (Zofran) 4 Mg Tab 4 MG PO Q6HR PRN NAUSEA OR VOMITING #30 Ref 0 TAB Fludrocortisone (Fludrocortisone) 0.1 Mg Tab 0.1 MG PO DAILY #30 Ref 0 TAB Hydrocortisone (Cortef) 10 Mg Tab 25 MG PO Q12HR #30 TAB Continued Medications: Aspirin (Aspirin) 81 Mg Tabdr 81 MG PO DAILY #90 TAB Citalopram (Citalopram) 40 Mg Tab 40 MG PO DAILY hold this medication until course of antibiotics has been completed Control Depression #90 Ref 0 TAB Gabapentin (Gabapentin) 800 Mg Tab 800 MG PO TID #270 Ref 0 TAB Lisinopril (Lisinopril) 40 Mg Tab 40 MG PO DAILY Blood Pressure Management #30 Ref 0 TAB (This prescription has been renewed) Metformin (Metformin) 1,000 Mg Tab 1000 MG PO BIDPC With meals Blood Sugar Management #60 Ref 0 TAB Risperidone (Risperdal) 2 Mg Tab 2 MG PO DAILY #30 Ref 0 TAB Simvastatin (Simvastatin) 40 Mg Tab 40 MG PO HS Cholesterol Management #90 Ref 0 TAB Tramadol (Tramadol) 50 Mg Tab 50 MG PO Q8H PRN PAIN #120 Ref 0 TAB Warfarin (Warfarin) 5 Mg Tab 5 MG PO DAILY Blood Clot Prevention #90 Ref 0 TAB Discontinued Medications: Levofloxacin (Levaquin) 250 Mg Tab 250 MG PO DAILY uti #5 Ref 0 TAB Linezolid (Zyvox) 600 Mg Tab 600 MG PO Q12H Infection #10 Ref 0 TAB Arcelia Venegas MD R3 Aug 25, 2016 16:01
[2016-09-15] MEDS ORDERED: HYDR-2374 PO (15:30)
[2016-09-15] MEDS ORDERED: TRAM50TA PO (15:30)
[2016-09-20] MEDS ORDERED: HYDR-3583 PO ×2 (15:15→15:17)
[2016-10-13] MEDS ORDERED: LISI40TA PO (09:31)
[2016-10-13] MEDS ORDERED: SIMV40TA PO (09:31)
[2016-10-13] MEDS ORDERED: METF1000 PO (09:31)
[2016-10-13] MEDS ORDERED: SYNT25TA PO (09:32)
[2016-10-13] MEDS ORDERED: FLUD.1 PO (09:32)
[2016-10-14] MEDS ORDERED: LEVO100T5 PO (14:32)
[2016-10-19] MEDS ORDERED: HYDR-3583 PO (13:51)
[2016-10-20] MEDS ORDERED: TRAM50TA PO (13:38)
[2016-11-18] MEDS ORDERED: COUM3TAB PO (12:26)
[2016-12-23] MEDS ORDERED: TRAM50TA PO (09:38)
[2016-12-23] MEDS ORDERED: HYDR-3583 PO (09:38)
[2016-12-24] MEDS ORDERED: WARF-20 PO (10:36)
[2016-12-29] MEDS ORDERED: LEVO88TA2 PO (19:31)
[2017-01-18] MEDS ORDERED: COUM4TAB PO (17:55)
== END 2016-08-25 15:36 | disposition home health service (06) | DRG 682 ==
LOC: NEPC 08:58 → NEDA 13:04 → OBSVTOIN 13:59 → N04B 19:07 → HIMN 08-21 14:15 → N05B 08-22 12:45
PROVIDERS: ADMIT Family Medicine; ATTEND Family Medicine
PROC: 0DJD8ZZ Inspection of Lower Intestinal Tract, Via Natural or Artificial Opening Endoscopic (ICD-10-PCS; 2016-08-24)
PROC: 0DB68ZX Excision of Stomach, Via Natural or Artificial Opening Endoscopic, Diagnostic (ICD-10-PCS; principal; 2016-08-24 13:30)
PROC: 0W3P8ZZ Control Bleeding in Gastrointestinal Tract, Via Natural or Artificial Opening Endoscopic (ICD-10-PCS; 2016-08-24 13:30)
DX: N17.9 Acute kidney failure, unspecified (principal); J15.9 Unspecified bacterial pneumonia; I47.2 Ventricular tachycardia; D68.9 Coagulation defect, unspecified; E11.22 Type 2 diabetes mellitus with diabetic chronic kidney disease; E11.42 Type 2 diabetes mellitus with diabetic polyneuropathy; I69.351 Hemiplegia and hemiparesis following cerebral infarction affecting right dominant side; N39.0 Urinary tract infection, site not specified; E27.40 Unspecified adrenocortical insufficiency; J98.11 Atelectasis; I12.9 Hypertensive chronic kidney disease with stage 1 through stage 4 chronic kidney disease, or unspecified chronic kidney disease; E03.9 Hypothyroidism, unspecified; E78.5 Hyperlipidemia, unspecified; N18.9 Chronic kidney disease, unspecified; G25.81 Restless legs syndrome; M19.90 Unspecified osteoarthritis, unspecified site; B95.61 Methicillin susceptible Staphylococcus aureus infection as the cause of diseases classified elsewhere; D35.02 Benign neoplasm of left adrenal gland; D50.9 Iron deficiency anemia, unspecified; Z79.01 Long term (current) use of anticoagulants; E86.0 Dehydration; F40.240 Claustrophobia; G47.33 Obstructive sleep apnea (adult) (pediatric); G89.29 Other chronic pain; I45.81 Long QT syndrome; J45.909 Unspecified asthma, uncomplicated; Z79.82 Long term (current) use of aspirin; K31.7 Polyp of stomach and duodenum
CPT/HCPCS: 36430; 36600; 70450; 71010; 74176; 76937; 78264; 80048; 80053; 80307; 81001; 82024; 82140; 82272; 82533; 82550; 82805; 82948; 83540; 83550; 83605; 83690; 83735; 84100; 84443; 84484; 85025; 85027; 85610; 85730; 86850; 86900; 86901; 86927; 87040; 88305; 88312; 93005; 93306; 94002; 94150; 96361; 96365; 96375; A9541; C9113; J0456; J0692; J1100; J1644; J1815; J2405; J2765; J3475; J7030; J7042; J7050; P9017

== ENCOUNTER 2016-09-06 15:47 | Inpatient (IN) | payer OTHER ==
[~2016-09-06] VITALS: Ht 170.2 cm; Wt 79.8 kg
[~2016-09-06 15:47] MED LIST changes: -ALBU0.08 NEB; -ENOX30P SQ; +FERR1TAB36 PO; +FLUD.1 PO; -HYDR25TA5 PO; +HYDRO10 PO; -IPRA0.02 NEB; -LEVA250T PO; -LINE1TAB PO; +LISI40TA PO; +RISP2TAB37 PO; +ZOFR4TAB PO; -ZYVO600T PO
[2016-09-06 15:49] VITALS: BP 136/85; PULSE 90; RESP 14; TEMP 98; O2SAT 91
--- NOTE | 2016-09-06 19:11 | PD ---
HPI Chief Complaint: Hip Injury Time Seen by Provider: 19:11 Travel History International Travel<30 days: No Contact w/Intl Traveler<30days: No Traveled to known affect area: No History of Present Illness HPI Patient is a 55-year-old female who presented to the emergency department with her for evaluation of left hip pain. states patient fell on Tuesday. She has been ambulating with her walker however her gait is shuffling and patient cannot completely bear weight on her left leg. Patient has a history of CVA 2 with right sided residual weakness. Per 's report patient has difficulty speaking as well. Patient's is doing most of the talking for her, since Tuesday he states the pain has been constant. Since the pain is not alleviated or changed he called the primary doctor who advised him to bring her to the emergency department. Patient states when she is ambulating her pain is a 10 out of 10, it is improved with rest. states she has been taking Lortab 10 mg tablets or tramadol 50 mg tablets for the pain. Patient denies any headache, head injury or loss of consciousness. Patient's found her about 20 minutes after she fell on the floor at home. PFSH Past Medical History Hx Anticoagulant Therapy: Yes Arthritis: Yes Asthma: Yes Autoimmune Disease: Yes (LUPUS) Blood Disorders: No Anxiety: Yes Depression: Yes Heart Rhythm Problems: No Cancer: No Cardiovascular Problems: Yes High Cholesterol: Yes Chest Pain: No Congestive Heart Failure: No COPD: No Cerebrovascular Accident: Yes (CVA November 2012) Diabetes: Yes Diminished Hearing: No Endocrine: Yes (DM II) Gastrointestinal Disorders: Yes Glaucoma: No Genitourinary: No Headaches: Yes Hepatitis: No Hiatal Hernia: Yes Heparin Induced Thrombocytopen: No Hypertension: Yes Immune Disorder: Yes (LUPUS) Implanted Vascular Access Dvce: No Kidney Stones: No Musculoskeletal: Yes Neurologic: Yes (CVA November 2012) Psychiatric: Yes Reproductive: Yes (ovary removed) Respiratory: Yes (SLEEP APNEA) Migraines: No Myocardial Infarction: No Renal Failure: No Seizures: No Sickle Cell Disease: No Sleep Apnea: Yes Thyroid Disease: Yes (hypothyroidism) Ulcer: No Menopausal: Yes : 3 Para: 3 Ovarian Cysts: Yes (R) Tubal Ligation: Yes (R ) Past Surgical History Abdominal Surgery: Yes (Cholecystectomy) Appendectomy: No Cardiac Surgery: No Cholecystectomy: Yes Ear Surgery: No Endocrine Surgery: No Eye Surgery: No Genitourinary Surgery: No Gynecologic Surgery: Yes (ovary removed) Neurologic Surgery: No Oral Surgery: No Thoracic Surgery: No Other Surgery: Yes Social History Alcohol Use: Yes (OCCASIONALLY) Tobacco Use: No Substance Use: Yes (MARIJUANA) Allergies-Medications (Allergen,Severity, Reaction): Coded Allergies: Penicillin (Verified Allergy, Severe, Rash, 09/06/16) Reported Meds & Prescriptions Reported Meds & Active Scripts Active Iron (Ferrous Sulfate) 325 Mg Tab 325 Mg PO DAILY Take Fludrocortisone (Fludrocortisone Acetate) 0.1 Mg Tab 0.1 Mg PO DAILY Lisinopril 40 Mg Tab 40 Mg PO DAILY Tramadol (Tramadol HCl) 50 Mg Tab 50 Mg PO Q8H PRN Lortab (Hydrocodone-Acetaminophen) 10-325 Mg Tab 1 Tab PO Q4H PRN Citalopram (Citalopram Hydrobromide) 40 Mg Tab 40 Mg PO DAILY hold this medication until course of antibiotics has been completed Warfarin 5 Mg Tab 5 Mg PO DAILY Gabapentin 800 Mg Tab 800 Mg PO TID Aspirin 81 Mg Tabdr 81 Mg PO DAILY Simvastatin 40 Mg Tab 40 Mg PO HS Reported Synthroid (Levothyroxine Sodium) 25 Mcg Tab 25 Mcg PO DAILY Risperdal (Risperidone) 2 Mg Tab 2 Mg PO DAILY Metformin (Metformin HCl) 1,000 Mg Tab 1,000 Mg PO BIDPC With meals Review of Systems Except as stated in HPI: all other systems reviewed are Neg Musculoskeletal: Positive: Myalgias, Arthralgias, Pain Physical Exam Narrative GENERAL: Well-developed, well-nourished, alert female. Resting comfortably in no acute distress. Appears older than stated age. SKIN: Warm and dry. HEAD: Atraumatic. Normocephalic. EYES: Pupils equal and round. No scleral icterus. No injection or drainage. ENT: No nasal bleeding or discharge. Mucous membranes pink and moist. NECK: Trachea midline. No JVD. CARDIOVASCULAR: Regular rate and rhythm. No murmur appreciated. RESPIRATORY: No accessory muscle use. Clear to auscultation. Breath sounds equal bilaterally. GASTROINTESTINAL: Abdomen soft, non-tender, nondistended. Hepatic and splenic margins not palpable. MUSCULOSKELETAL: No obvious deformities. No clubbing. No cyanosis. No edema. Left leg appears slightly longer than the right. 4-5 muscle strength in left lower extremity. NEUROLOGICAL: Awake and alert. No obvious cranial nerve deficits. Motor grossly within normal limits. Speech is slow. Residual right-sided weakness. PSYCHIATRIC: Appropriate mood and affect; insight and judgment normal. Data Data Last Documented VS Vital Signs Date Time Temp Pulse Resp B/P Pulse Ox O2 Delivery O2 Flow Rate FiO2 09/06/16 15:49 98.0 90 14 136/85 91 Room Air Orders Hip, Uni(Ap&Lat) W Ap Pelvis (09/06/16 ) Femur (Ap & Lat/2vws) (09/06/16 ) Urinalysis - C+S If Indicated (09/06/16 19:10) Cath For Specimen (09/06/16 19:10) Ct Brain W/O Iv Contrast(Rout) (09/06/16 ) Complete Blood Count With Diff (09/06/16 20:33) Basic Metabolic Panel (Bmp) (09/06/16 20:33) Act Partial Throm Time (Ptt) (09/06/16 20:33) Prothrombin Time / Inr (Pt) (09/06/16 20:33) Urine Culture (09/06/16 20:30) Diet As Tolerated (09/06/16 21:29) Admit Order (Ed Use Only) (09/06/16 21:37) Labs Laboratory Tests Test 09/06/16 09/06/16 20:30 20:50 Urine Color YELLOW Urine Turbidity CLEAR Urine pH 5.5 Urine Specific Sage 1.017 Urine Protein TRACE mg/dL Urine Glucose (UA) NEG mg/dL Urine Ketones TRACE mg/dL Urine Occult Blood TRACE Urine Nitrite NEG Urine Bilirubin NEG Urine Urobilinogen LESS THAN 2.0 MG/DL Urine Leukocyte Esterase LARGE Urine RBC 3 /hpf Urine WBC 13 /hpf Urine Squamous Epithelial 1 /hpf Cells Urine Bacteria RARE /hpf Microscopic Urinalysis Comment CATH-CULTURE IND White Blood Count 7.3 TH/MM3 Red Blood Count 3.58 MIL/MM3 Hemoglobin 10.2 GM/DL Hematocrit 30.3 % Mean Corpuscular Volume 84.8 FL Mean Corpuscular Hemoglobin 28.5 PG Mean Corpuscular Hemoglobin 33.6 % Concent Red Cell Distribution Width 16.6 % Platelet Count 233 TH/MM3 Mean Platelet Volume 8.7 FL Neutrophils (%) (Auto) 60.4 % Lymphocytes (%) (Auto) 28.8 % Monocytes (%) (Auto) 7.4 % Eosinophils (%) (Auto) 2.3 % Basophils (%) (Auto) 1.1 % Neutrophils # (Auto) 4.4 TH/MM3 Lymphocytes # (Auto) 2.1 TH/MM3 Monocytes # (Auto) 0.5 TH/MM3 Eosinophils # (Auto) 0.2 TH/MM3 Basophils # (Auto) 0.1 TH/MM3 CBC Comment DIFF FINAL Differential Comment Prothrombin Time 76.2 SEC Prothromb Time International 6.4 RATIO Ratio Activated Partial 55.1 SEC Thromboplast Time Sodium Level 136 MEQ/L Potassium Level 4.7 MEQ/L Chloride Level 103 MEQ/L Carbon Dioxide Level 26.1 MEQ/L Anion Gap 7 MEQ/L Blood Urea Nitrogen 34 MG/DL Creatinine 2.32 MG/DL Estimat Glomerular Filtration 22 ML/MIN Rate Random Glucose 47 MG/DL Calcium Level 8.4 MG/DL Total Creatine Kinase 132 U/L MDM Medical Decision Making Medical Screen Exam Complete: Yes Emergency Medical Condition: Yes Medical Record Reviewed: Yes Interpretation(s) Vital Signs Date Time Temp Pulse Resp B/P Pulse Ox O2 Delivery O2 Flow Rate FiO2 09/06/16 15:49 98.0 90 14 136/85 91 Room Air Differential Diagnosis Fracture versus sprain versus strain versus dislocation versus hemorrhage versus other Narrative Course Patient is a 55-year-old female presenting to the emergency department with her for evaluation of left hip pain. Patient had an unwitnessed fall on Tuesday afternoon, she was found on the floor by her and proximally 20 minutes after the fall. Patient has been having difficulty and pain with ambulation. She has been using a shuffling gait, this is new for her. Patient has a strong smell of urine on her. Labs and imaging ordered and pending. CT of the brain shows no acute changes. Imaging of the left hip shows a proximal left femoral neck fracture at the junction of the femoral head and neck. Slight compression noted. IV access ordered, CBC, BMP, coags ordered and pending. Discussed imaging results with and patient. Care patient will be transferred to provider in a medical pod when bed is available. Patient is currently resting comfortably. Farideh Lanza Sep 06, 2016 19:11 Farideh Lanza Sep 06, 2016 19:11
--- NOTE | 2016-09-06 20:17 | RADRPT ---
EXAM DATE/TIME: 09/06/2016 19:41 [facility] COMPARISON: MRI BRAIN W/O CONTRAST, August 09, 2016, 19:55. CT BRAIN W/O CONTRAST, August 21, 2016, 15:29. INDICATIONS : Fall three days ago. RADIATION DOSE: 39.24 CTDIvol (mGy) MEDICAL HISTORY : Stroke. hypertension, diabetes SURGICAL HISTORY : Tubal ligation. ENCOUNTER: Initial ACUITY: 3 days PAIN SCALE: 0/10 LOCATION: Bilateral head TECHNIQUE: Multiple contiguous axial images were obtained of the head. Using automated exposure control and adj ustment of the mA and/or kV according to patient size, radiation dose was kept as low as reasonably a chievable to obtain optimal diagnostic quality images. FINDINGS: There is encephalomalacia at the left frontal lobe and at the left basal ganglia. There is expansion of the frontal horn and anterior body of the left lateral ventricle in response to this. There is al so some lacunar infarction seen at the anterior right thalamus. The ventricles and cortical sulci ar e mildly widened for the patient's age. No acute areas of hemorrhage or mass effect are seen. No ac false pass infarction is seen. The patient does have a 1.4 cm calcification seen at the superior right fron deena parietal region likely related to a meningioma. Underlying edema is not seen. This was present previously. There is a minimal amount of increased density seen at the posterior left maxillary sinu s likely related to mucosal disease. CONCLUSION: 1. Areas of encephalomalacia in the left frontal lobe and left basal ganglia. 2. Old lacunar infarct at the right thalamus. 3. Mild atrophy. 4. Suspected incidental 1 cm calcified meningioma at the right superior frontal parietal region which was present previously and does not appear to cause an significant mass effect. Bal Bianchi MD on September 06, 2016 at 20:05 Board Certified Radiologist. This report was verified electronically.
--- NOTE | 2016-09-06 20:29 | RADRPT ---
EXAM DATE/TIME: 09/06/2016 19:51 [facility] COMPARISON: No previous studies available for comparison. INDICATIONS : Fall. Left hip pain. MEDICAL HISTORY : Stroke. Hypertension Lupus. SURGICAL HISTORY : None. ENCOUNTER: Initial ACUITY: 3 days PAIN SCORE: 9/10 LOCATION: Left hip, greater trochanter FINDINGS: There is fracturing at the base of the femoral head. There appears to be some compression. The left hip joint is normally aligned. Vascular calcifications are seen. CONCLUSION: Compressed proximal left femoral neck fracture at the junction of the femoral head an d neck. Bal Bianchi MD on September 06, 2016 at 20:21 Board Certified Radiologist. This report was verified electronically.
[2016-09-06 20:42] LABS: BACTERIA, URINE RARE /hpf; BLOOD, URINE TRACE (NEG); COMMENT (UR) CATH-CULTURE IND; CULTURE IF INDICATED CATH CULTURE IND; GLUCOSE,URINE NEG (NEG); KETONE, URINE TRACE mg/dL (NEG); NITRITE,URINE NEG (NEG); PH, URINE 5.5 (5.0-8.5); SQUAMOUS EPITHELIAL CELL URINE 1 /hpf (0-5); URINE COLOR YELLOW (YELLW/STRAW)
[2016-09-06 21:11] LABS: AUTOMATED NEUTROPHIL # 4.4 TH/MM3 (1.8-7.7); BASOPHIL # 0.1 TH/MM3 (0-0.2); BASOPHIL % 1.1 % (0.0-2.0); EOSINOPHIL # 0.2 TH/MM3 (0-0.4); EOSINOPHIL % 2.3 % (0.0-4.0); HEMATOCRIT 30.3 % (35.0-46.0); HEMO FLAGS DIFF FINAL; LYMPH % 28.8 % (9.0-44.0); LYMPHOCYTE # 2.1 TH/MM3 (1.0-4.8); MEAN CELL VOLUME 84.8 FL (80.0-100.0); MEAN CORPUSCULAR HEMOGLOBIN 28.5 PG (27.0-34.0); MEAN CORPUSCULAR HGB CONC 33.6 % (32.0-36.0); MONO % 7.4 % (0.0-8.0); NEUT % 60.4 % (16.0-70.0); PLATELET COUNT 233 TH/MM3 (150-450); RED BLOOD COUNT 3.58 MIL/MM3 (4.00-5.30); RED CELL DISTRIBUTION WIDTH 16.6 % (11.6-17.2); WHITE BLOOD COUNT 7.3 TH/MM3 (4.0-11.0)
[2016-09-06 21:35] LABS: APTT (PATIENT) 55.1 SEC (24.3-30.1); PROTHROMBIN TIME - PATIENT 76.2 SEC (9.8-11.6)
[2016-09-06 21:38] LABS: INTERNATIONAL NORMALIZED RATIO 6.4 RATIO
--- NOTE | 2016-09-06 21:43 | PD ---
Physical Exam Date Seen by Provider: Sep 06, 2016 Time Seen by Provider: 21:38 Narrative 55-year-old female that presents to the ED for evaluation of fall. Please refer to Farideh PEREZ's note who evaluated the patient initially and sign out the patient to me pending disposition. Data Data Last Documented VS Vital Signs Date Time Temp Pulse Resp B/P Pulse Ox O2 Delivery O2 Flow Rate FiO2 09/06/16 15:49 98.0 90 14 136/85 91 Room Air Orders Hip, Uni(Ap&Lat) W Ap Pelvis (09/06/16 ) Femur (Ap & Lat/2vws) (09/06/16 ) Urinalysis - C+S If Indicated (09/06/16 19:10) Cath For Specimen (09/06/16 19:10) Ct Brain W/O Iv Contrast(Rout) (09/06/16 ) Complete Blood Count With Diff (09/06/16 20:33) Basic Metabolic Panel (Bmp) (09/06/16 20:33) Act Partial Throm Time (Ptt) (09/06/16 20:33) Prothrombin Time / Inr (Pt) (09/06/16 20:33) Urine Culture (09/06/16 20:30) Diet As Tolerated (09/06/16 21:29) Admit Order (Ed Use Only) (09/06/16 21:37) Labs Laboratory Tests Test 09/06/16 09/06/16 20:30 20:50 Urine Color YELLOW Urine Turbidity CLEAR Urine pH 5.5 Urine Specific [place] 1.017 Urine Protein TRACE mg/dL Urine Glucose (UA) NEG mg/dL Urine Ketones TRACE mg/dL Urine Occult Blood TRACE Urine Nitrite NEG Urine Bilirubin NEG Urine Urobilinogen LESS THAN 2.0 MG/DL Urine Leukocyte Esterase LARGE Urine RBC 3 /hpf Urine WBC 13 /hpf Urine Squamous Epithelial 1 /hpf Cells Urine Bacteria RARE /hpf Microscopic Urinalysis Comment CATH-CULTURE IND White Blood Count 7.3 TH/MM3 Red Blood Count 3.58 MIL/MM3 Hemoglobin 10.2 GM/DL Hematocrit 30.3 % Mean Corpuscular Volume 84.8 FL Mean Corpuscular Hemoglobin 28.5 PG Mean Corpuscular Hemoglobin 33.6 % Concent Red Cell Distribution Width 16.6 % Platelet Count 233 TH/MM3 Mean Platelet Volume 8.7 FL Neutrophils (%) (Auto) 60.4 % Lymphocytes (%) (Auto) 28.8 % Monocytes (%) (Auto) 7.4 % Eosinophils (%) (Auto) 2.3 % Basophils (%) (Auto) 1.1 % Neutrophils # (Auto) 4.4 TH/MM3 Lymphocytes # (Auto) 2.1 TH/MM3 Monocytes # (Auto) 0.5 TH/MM3 Eosinophils # (Auto) 0.2 TH/MM3 Basophils # (Auto) 0.1 TH/MM3 CBC Comment DIFF FINAL Differential Comment MDM Medical Record Reviewed: Yes Supervised Visit with TRUONG: No Interpretation(s) CBC & BMP Diagram 09/06/16 20:50 INR of 6.4 Last Impressions Hip and Pelvis X-Ray 09/06/16 0000 Signed Impressions: Service Date/Time: Tuesday, September 06, 2016 19:51 - CONCLUSION: Compressed proximal left femoral neck fracture at the junction of the femoral head and neck. Bal Bianchi MD Head CT 09/06/16 0000 Signed Impressions: Service Date/Time: Tuesday, September 06, 2016 19:41 - CONCLUSION: 1. Areas of encephalomalacia in the left frontal lobe and left basal ganglia. 2. Old lacunar infarct at the right thalamus. 3. Mild atrophy. 4. Suspected incidental 1 cm calcified meningioma at the right superior frontal parietal region which was present previously and does not appear to cause an significant mass effect. Bal Bianchi MD UA shows signs of UTI Differential Diagnosis Hip fracture versus fall versus injury Narrative Course 55-year-old female that presents to the ED for evaluation of fall. Patient was properly examined by previous provider. Per his report to her note. Patient had imaging that show fracture of the left femoral neck. Patient also was found to have an elevated INR and possible UTI. No sign of anemia or sign of bleeding at this time. Case was discussed with Dr. Kaba of orthopedic surgery who agrees to admission and consult to him. Case was discussed with the residents who agreed to admission. Patient was admitted to the residents. This was discussed with the family who agreed to admission. HemaPrompt Test Point of Care Fecal Specimen Occult Blood: Negative Diagnosis Primary Impression: Femoral neck fracture Qualified Code: S72.002A - Closed fracture of neck of left femur, initial encounter Additional Impression: Coagulopathy Admitting Information Admitting Physician Requests: Admit Hermes Kaba Sep 06, 2016 21:43
[2016-09-06 21:45] LABS: BICARBONATE 26.1 MEQ/L (21.0-32.0); POTASSIUM 4.7 MEQ/L (3.5-5.1)
[2016-09-06] MEDS ORDERED: SODIUM CHLOR 0.9% 1000 ML INJ 1,000 ML IV SCH (21:46)
[2016-09-06] MEDS ORDERED: PHYTONADIONE 5 MG TAB PO ONE (22:15)
[2016-09-06] MEDS ORDERED: NON-FORMULARY DRUG (Ondansetron (Zofran) 4 MG) PO PRN (22:15)
[2016-09-06] MEDS ORDERED: DEXTROSE 50% IN WATER 50 ML SYRINGE ONE (22:22)
[2016-09-06] MEDS ORDERED: DEXTROSE 50% IN WATER 50 ML VIAL(D50) IV PUSH PRN (22:30)
[2016-09-06] MEDS ORDERED: DEXTROSE 50% IN WATER 50 ML VIAL(D50) IV PUSH ONE (22:30)
[2016-09-06] MEDS ORDERED: ACETAMINOPHEN/HYDROcodone 325 MG/5 MG TAB PO PRN (22:30)
[2016-09-06] MEDS ORDERED: ACETAMINOPHEN/HYDROcodone 325 MG/10 MG TAB PO PRN (22:30)
[2016-09-06] MEDS ORDERED: MORPHINE SULFATE 4 MG/ML INJ IV PRN (22:30)
[2016-09-06] MEDS ORDERED: NALOXONE HCL 0.4 MG/ML AMP IV PRN ×2 (22:30)
[2016-09-06] MEDS ORDERED: ONDANSETRON ODT 4 MG TAB PO PRN (22:30)
[2016-09-06] MEDS ORDERED: ACETAMINOPHEN 325 MG TAB PO PRN (22:30)
[2016-09-06] MEDS ORDERED: GLUCAGON 1 MG/ML VIAL OTHER PRN (22:30)
[2016-09-06] MEDS ORDERED: DOCUSATE SODIUM 50 MG/SENNA 8.6 MG TAB PO PRN (22:30)
[2016-09-06] MEDS ORDERED: SODIUM CHLORIDE 0.9% FLUSH 5 ML FLUSH FLUSH PRN (22:30)
[2016-09-06] MEDS ORDERED: SYNT25TA PO (22:31)
--- NOTE | 2016-09-06 22:42 | HHI.HP ---
[facility] Service Family Medicine Primary Care Physician Shan Quick MD Admission Diagnosis left hip femoral fracture, elevated INR, fall Diagnoses: International Travel<30 Days: No Contact w/Intl Traveler<30days: No Known Affected Area: No History of Present Illness 55-year-old female with past medical history of hypertension, diabetes, hyperlipidemia, multiple CVAs presenting after a mechanical fall occurring on Tuesday. Additional history is obtained from patient's who is at bedside. According to , she had fallen on Tuesday after slipping on surface of the tile floor. She has a history of several such falls in the past, and usually they do not result in any issues. However, after this fall has been noted that she had been having some increased pain with bearing weight which was relieved with laying down. Also not associated with any prodromal symptoms including lightheadedness, dizziness, visual disturbances, although patient does have poor balance related to prior strokes. Review of systems otherwise negative. There've been no changes to her medications recently since her last visit. Of note, she was recently discharged from the hospital after a bout of pneumonia during which time a diagnosis of adrenal insufficiency was suspected and the patient was started on oral steroids. She has been taking all her medications as prescribed. (Maurisio Norman MD R1) Review of Systems ROS Limitations: Clinical Condition, Poor Historian Constitutional: DENIES: Fever Endocrine: DENIES: Polyuria Eyes: DENIES: Blurred vision Respiratory: DENIES: Shortness of breath Cardiovascular: DENIES: Chest pain Gastrointestinal: DENIES: Abdominal pain Genitourinary: DENIES: Abnormal vaginal bleeding Musculoskeletal: COMPLAINS OF: Muscle aches Integumentary: DENIES: Rash Hematologic/lymphatic: DENIES: Bruising Neurologic: COMPLAINS OF: Poor Balance, DENIES: Localized weakness (Maurisio Norman MD R1) Past Family Social History Past Medical History CVA X3 lupus diabetes mellitus II, on metformin hypothyroidism, hypertension, arthritis, hyperlipidemia, depression/anxiety, restless leg syndrome, Rotator cuff tear: Fall 2015 Past Surgical History Cholecystectomy 1996 Right oophero salpingectomy 1996 Reported Medications Reported Meds & Active Scripts Active Iron (Ferrous Sulfate) 325 Mg Tab 325 Mg PO DAILY Take Zofran (Ondansetron HCl) 4 Mg Tab 4 Mg PO Q6HR PRN Cortef (Hydrocortisone) 10 Mg Tab 25 Mg PO Q12HR Fludrocortisone (Fludrocortisone Acetate) 0.1 Mg Tab 0.1 Mg PO DAILY Lisinopril 40 Mg Tab 40 Mg PO DAILY Tramadol (Tramadol HCl) 50 Mg Tab 50 Mg PO Q8H PRN Lortab (Hydrocodone-Acetaminophen) 10-325 Mg Tab 1 Tab PO Q4H PRN Citalopram (Citalopram Hydrobromide) 40 Mg Tab 40 Mg PO DAILY hold this medication until course of antibiotics has been completed Warfarin 5 Mg Tab 5 Mg PO DAILY Gabapentin 800 Mg Tab 800 Mg PO TID Aspirin 81 Mg Tabdr 81 Mg PO DAILY Simvastatin 40 Mg Tab 40 Mg PO HS Reported Risperdal (Risperidone) 2 Mg Tab 2 Mg PO DAILY Metformin (Metformin HCl) 1,000 Mg Tab 1,000 Mg PO BIDPC With meals (Maurisio Norman MD R1) Allergies: Coded Allergies: Penicillin (Verified Allergy, Severe, Rash, 09/06/16) Active Ordered Medications Current Medications Medications (Trade) Dose Ordered Sig/Anabela Route Start Time Stop Time Status Last Admin (NS 1000 ml Inj) 1,000 ml @ 1,000 mls/hr Q1H IV 09/06/16 21:46 09/06/16 22:45 Family History Father's at 63 of throat and tongue cancer Mother is at 55 cardiac complications One sister has cardiac disease and hypertension Social History Tobacco: Denies Alcohol: Denies Drugs: Denies Occupation: working on [employer] (Maurisio Norman MD R1) Physical Exam Vital Signs Vital Signs Date Time Temp Pulse Resp B/P Pulse Ox O2 Delivery O2 Flow Rate FiO2 09/06/16 15:49 98.0 90 14 136/85 91 Room Air Physical Exam GENERAL: Well-developed well-nourished pale adult white female lying in bed in no acute distress SKIN: No rashes, ecchymoses or lesions. Cool and dry. HEAD: NC/AT EYES: PERRL. EOMI. No conjunctival injection or drainage. ENT: MMM, OP without erythema, tonsillar swelling, or exudate. NECK: Supple, no lymphadenopathy. No JVD. CARDIOVASCULAR: NRRR. Normal S1/S2. No MRG RESPIRATORY: CTAB. No crackles or wheezes. GASTROINTESTINAL: Abdomen soft, non-distended, non-tender. No hepato- splenomegaly or palpable masses. MUSCULOSKELETAL: Extremities without clubbing, cyanosis, or edema. NEUROLOGICAL: Awake and alert. Oriented to person and place, but not time. Cranial nerves II through XII grossly intact. Moves all extremities without difficulty. Normal speech. Laboratory Laboratory Tests Test 09/06/16 09/06/16 20:30 20:50 Urine Color YELLOW Urine Turbidity CLEAR Urine pH 5.5 Urine Specific [place] 1.017 Urine Protein TRACE Urine Glucose (UA) NEG Urine Ketones TRACE Urine Occult Blood TRACE Urine Nitrite NEG Urine Bilirubin NEG Urine Urobilinogen LESS THAN 2.0 Urine Leukocyte Esterase LARGE Urine RBC 3 Urine WBC 13 Urine Squamous Epithelial 1 Cells Urine Bacteria RARE Microscopic Urinalysis Comment CATH-CULTURE IND White Blood Count 7.3 Red Blood Count 3.58 Hemoglobin 10.2 Hematocrit 30.3 Mean Corpuscular Volume 84.8 Mean Corpuscular Hemoglobin 28.5 Mean Corpuscular Hemoglobin 33.6 Concent Red Cell Distribution Width 16.6 Platelet Count 233 Mean Platelet Volume 8.7 Neutrophils (%) (Auto) 60.4 Lymphocytes (%) (Auto) 28.8 Monocytes (%) (Auto) 7.4 Eosinophils (%) (Auto) 2.3 Basophils (%) (Auto) 1.1 Neutrophils # (Auto) 4.4 Lymphocytes # (Auto) 2.1 Monocytes # (Auto) 0.5 Eosinophils # (Auto) 0.2 Basophils # (Auto) 0.1 CBC Comment DIFF FINAL Differential Comment Prothrombin Time 76.2 Prothromb Time International 6.4 Ratio Activated Partial 55.1 Thromboplast Time Sodium Level 136 Potassium Level 4.7 Chloride Level 103 Carbon Dioxide Level 26.1 Anion Gap 7 Blood Urea Nitrogen 34 Creatinine 2.32 Estimat Glomerular Filtration 22 Rate Random Glucose 47 Calcium Level 8.4 Date/Time Procedure Status Source Growth 09/06/16 20:30 Urine Culture Received Urine Catheterized Urine Pending (Maurisio Norman MD R1) Result Diagram: 09/06/16204909/06/[id number] Imaging Last Impressions Hip and Pelvis X-Ray 09/06/16 0000 Signed Impressions: Service Date/Time: Tuesday, September 06, 2016 19:51 - CONCLUSION: Compressed proximal left femoral neck fracture at the junction of the femoral head and neck. Bal Bianchi MD Head CT 09/06/16 0000 Signed Impressions: Service Date/Time: Tuesday, September 06, 2016 19:41 - CONCLUSION: 1. Areas of encephalomalacia in the left frontal lobe and left basal ganglia. 2. Old lacunar infarct at the right thalamus. 3. Mild atrophy. 4. Suspected incidental 1 cm calcified meningioma at the right superior frontal parietal region which was present previously and does not appear to cause an significant mass effect. Bal Bianchi MD (Maurisio Norman MD R1) Assessment and Plan Assessment and Plan 55-year-old female with past medical history of hypertension, diabetes, hyperlipidemia presenting with: 1. Left femoral neck fracture after fall History and exam findings suggestive of mechanical fall, imaging confirming left femoral neck fracture * Orthopedics consulted * Bed rest with precautions * Correct INR as below * Hold warfarin * Nothing by mouth after midnight * Pain control with Lortab 5 mg for pain 3-5, Lortab 10 mg for pain 6-10, morphine PRN for breakthrough * PT eval & treat #2 Fall Likely etiology mechanical, but easily could be supratherapeutic gabapentin, opioid use, dehydration, UTI, hypotension. * Treat fracture as above * Treat UTI as below * Normal saline at 100 mL per hour #2 Acute kidney injury Creatinine 2.32 from baseline of approximately 1, likely etiology dehydration/ prerenal based on when necessary/creatinine ratio * Normal saline at 100 mL/h * Repeat BMP in the morning #3 Hypoglycemia Blood glucose 47, not currently exhibiting signs/symptoms of hypoglycemia * Status post D50 in the emergency department * Hold metformin * Administer food * Nothing by mouth after midnight as above for surgery * Accu-Cheks before meals and at bedtime #4 Supratherapeutic INR Patient on Coumadin for history of prior strokes, INR on admission 6.4, no evidence on clinical exam of hematoma or other overt bleeding * Hold warfarin * Administer vitamin K 5 mg orally * Repeat INR at 0300 and 0800 #5 UTI Urinalysis showing large leukocyte esterase, 13 white blood cells, 1 squamous cell Could be contaminant, possibly early UTI * Rocephin 1 g daily IV * Follow urine culture #6 Suspected adrenal insufficiency Stable, continue home corticosteroids #7 Diabetes Stable, except with hypoglycemia as noted above * Hold metformin * Low-dose sliding scale insulin #8 Hypertension Initial BP 136/85. * Hold home antihypertensive given hypotension has been concern for this patient * Clonidine when necessary for blood pressure greater than 180/100 #9 Hyperlipidemia Continue home statin #10 History of anemia Continue home iron #11 Depression with anxiety Continue home Risperdal and Celexa #12 History of stroke Hold warfarin as above #13 Obstructive sleep apnea Stable at present, will order inpatient CPAP or BiPAP as needed #14 DVT Prophylaxis contraindicated Setting of supratherapeutic INR and hip fracture sdw Dr. Worrell Code Status Full Code (Maurisio Norman MD R1) Attending Attestation The patient has been seen and examined. The chart and all resident notes have been reviewed. I agree that inpatient care is appropriate and that a two midnight stay is expected for the reasons documented in the resident history and physical. I have discussed this with the resident and certify the resident s order for inpatient admission. (Mandy Riggs MD) Problem List: (1) Fracture of femoral neck, left Status: Acute (2) Fall Status: Acute (3) JAMAL (acute kidney injury) Status: Acute (4) UTI (lower urinary tract infection) Status: Acute (5) rule out adrenal insufficiency Status: Acute (6) Labile blood pressure Status: Chronic (7) Hyperlipidemia Status: Chronic (8) Diabetes mellitus Status: Chronic (9) Hypertension Status: Chronic (10) Subtherapeutic international normalized ratio (INR) Status: Acute (11) History of CVA (cerebrovascular accident) Status: Resolved (12) DEN (obstructive sleep apnea) Status: Acute (13) Depression with anxiety Status: Acute (Maurisio Norman MD R1) Physician Certification 2 Midnight Certification Type: Admission for Inpatient Services Order for Inpatient Services The services are ordered in accordance with Medicare regulations or non- Medicare payer requirements, as applicable. In the case of services not specified as inpatient-only, they are appropriately provided as inpatient services in accordance with the 2-midnight benchmark. Estimated LOS (days): 2 days is the estimated time the patient will need to remain in the hospital, assuming treatment plan goals are met and no additional complications. Post-Hospital Plan: Home (Maurisio Norman MD R1) Problem Qualifiers (1) Fracture of femoral neck, left: Qualified Code: S72.002A - Closed fracture of neck of left femur, initial encounter (2) Fall: Qualified Code: W19.XXXA - Fall, initial encounter (3) Diabetes mellitus: Qualified Code: E11.9 - Type 2 diabetes mellitus without complication, without long-term current use of insulin (4) Hypertension: Qualified Code: I10 - Essential hypertension Maurisio Norman MD R1 Sep 06, 2016 22:42 Mandy Riggs MD Sep 07, 2016 14:44
[2016-09-06 22:45] VITALS: BP 184/87; PULSE 78; RESP 18; O2SAT 97
[2016-09-06] MEDS: cefTRIAXone INJ 1,000 MG in SODIUM CHLORIDE 0.9% INJ 100 ML IV SCH (23:13)
[2016-09-06] MEDS: SODIUM CHLOR 0.9% 1000 ML INJ 1,000 ML IV SCH (23:13)
[2016-09-06] MEDS: cloNIDine HCL 0.1 MG TAB PO PRN (23:16)
[2016-09-07] VITALS (15 sets, daily range): BP systolic 114–203; BP diastolic 68–101; PULSE 62–79; RESP 14–20; TEMP 97.3–98.9; O2SAT 92–100
[2016-09-07 03:31] LABS: AUTOMATED NEUTROPHIL # 3.6 TH/MM3 (1.8-7.7); BASOPHIL # 0.1 TH/MM3 (0-0.2); BASOPHIL % 0.8 % (0.0-2.0); EOSINOPHIL # 0.2 TH/MM3 (0-0.4); EOSINOPHIL % 3.1 % (0.0-4.0); HEMATOCRIT 28.4 % (35.0-46.0); HEMO FLAGS DIFF FINAL; LYMPH % 33.6 % (9.0-44.0); LYMPHOCYTE # 2.2 TH/MM3 (1.0-4.8); MEAN CELL VOLUME 84.8 FL (80.0-100.0); MEAN CORPUSCULAR HEMOGLOBIN 28.5 PG (27.0-34.0); MEAN CORPUSCULAR HGB CONC 33.6 % (32.0-36.0); MONO % 8.9 % (0.0-8.0); NEUT % 53.6 % (16.0-70.0); PLATELET COUNT 218 TH/MM3 (150-450); RED BLOOD COUNT 3.35 MIL/MM3 (4.00-5.30); RED CELL DISTRIBUTION WIDTH 16.1 % (11.6-17.2); WHITE BLOOD COUNT 6.6 TH/MM3 (4.0-11.0)
[2016-09-07 03:42] LABS: PROTHROMBIN TIME - PATIENT 78.5 SEC (9.8-11.6)
[2016-09-07 03:49] LABS: BICARBONATE 24.8 MEQ/L (21.0-32.0); INTERNATIONAL NORMALIZED RATIO 6.5 RATIO
[2016-09-07] MEDS: INSULIN ASPART SUPPLEMENTAL SCALE SQ SCH ×2 (05:53→11:00)
[2016-09-07] MEDS ORDERED: PHYTONADIONE 10 MG/ML VIAL SQ ONE (07:00)
[2016-09-07] MEDS ORDERED: SODIUM CHLOR 0.9% 250 ML INJ 250 ML IV ONE (07:00)
--- NOTE | 2016-09-07 07:00 | PD.ORT.PN ---
Subjective Subjective Remarks s/p fall at home left hip pain. on coumadin. unsure of what normal INR is for herself Objective Vitals Vital Signs Date Time Temp Pulse Resp B/P Pulse Ox O2 Delivery O2 Flow Rate FiO2 09/07/16 05:49 72 18 168/68 96 Room Air 09/07/16 02:22 68 18 184/90 92 Room Air 09/07/16 01:04 74 18 164/101 96 Room Air 09/07/16 00:25 79 18 203/90 96 Room Air 09/06/16 22:45 78 18 184/87 97 Room Air 09/06/16 15:49 98.0 90 14 136/85 91 Room Air Result Diagram: [id number]/07/[id number] Other Results Laboratory Tests Test 09/06/16 09/07/16 20:50 03:19 Prothrombin Time 76.2 SEC 78.5 SEC (9.8-11.6) (9.8-11.6) Prothromb Time International 6.4 RATIO 6.5 RATIO Ratio Objective Remarks LLE: pain in hip with motion. Assessment & Plan Assessment and Plan 1) Left impacted femoral neck fx -sign consents -INR too high for surgery at this time -10mg of Vit K -2 units of FFP -redraw INR after transfused -will attempt to lower INR to safer level and proceed with surgery tomorrow -resume diet -npo after Oj Mcgee Sep 07, 2016 07:00
[2016-09-07] MEDS: cloNIDine HCL 0.1 MG TAB PO PRN (07:56)
[2016-09-07] MEDS ORDERED: HYDROCORTISONE 10 MG TAB PO SCH (09:00)
[2016-09-07] MEDS ORDERED: LISINOPRIL 20 MG TAB PO SCH (09:00)
[2016-09-07] MEDS: SODIUM CHLOR 0.9% 1000 ML INJ 1,000 ML IV SCH (09:22)
[2016-09-07] MEDS: SODIUM CHLORIDE 0.9% FLUSH 5 ML FLUSH FLUSH SCH ×2 (09:22→22:20)
[2016-09-07] MEDS: CITALOPRAM HYDROBROMIDE 40 MG TAB PO SCH (09:47)
[2016-09-07] MEDS: risperiDONE 1 MG TAB PO SCH (09:48)
[2016-09-07] MEDS: ASPIRIN EC 81 MG TABEC PO SCH (09:48)
[2016-09-07] MEDS: FERROUS SULFATE 325 MG (65 MG ELEMENTAL IRON) TAB PO SCH (09:48)
[2016-09-07] MEDS: FLUDROCORTISONE ACETATE 0.1 MG TAB PO SCH (09:48)
[2016-09-07] MEDS: POLYETHYLENE GLYCOL 17 GM PKG PO SCH (10:00)
[2016-09-07] MEDS ORDERED: hydrALAZINE HCL 25 MG TAB PO PRN (10:00)
[2016-09-07] MEDS ORDERED: DOCUSATE SODIUM 50 MG/SENNA 8.6 MG TAB PO PRN (10:00)
[2016-09-07] MEDS: amLODIPine BESYLATE 5 MG TAB PO SCH (10:29)
--- NOTE | 2016-09-07 11:58 | MB ---
cc: BRADEN RIGGS MD, TODD DATE OF CONSULTATION: 09/07/2016 REASON FOR CONSULTATION Left hip intertrochanteric fracture. CONSULTING PHYSICIAN Dr. Braden Riggs HISTORY OF PRESENT ILLNESS Jennie is a 55-year-old female who has a history of hypertension, diabetes, high cholesterol, history of CVAs. She has a history of several recent falls. She began developing left hip pain. Pain is worse with movement. She is having difficulty standing or ambulating. She presented to the emergency room where x-rays revealed a left hip impacted femoral neck fracture. She is currently awake and alert. Pain is worse with movement and is improved with rest. She denies dizziness, syncope or loss of consciousness. PAST MEDICAL HISTORY ILLNESSES 1. CVA. 2. Lupus. 3. Diabetes. 4. Hypothyroidism. 5. Hypertension. 6. High cholesterol. 7. Anxiety. 8. Depression. SURGERIES 1. Cholecystectomy. 2. Oophorectomy. 3. Salpingectomy. MEDICATIONS 1. Iron. 2. Zofran. 3. Cortef. 4. Fludrocortisone. 5. Lisinopril. 6. Tramadol. 7. Lortab. 8. Citalopram. 9. Coumadin. 10.Gabapentin. 11.Aspirin. 12.Simvastatin. 13.Risperdal. 14.Metformin. ALLERGIES PENICILLIN. FAMILY HISTORY Positive for throat and mouth cancer in her father and coronary artery disease in her mother. SOCIAL HISTORY The patient denies alcohol, tobacco or drug use. REVIEW OF SYSTEMS The patient denies headache, visual changes, neck pain, chest pain, shortness of breath, abdominal pain, nausea, vomiting, recent weight loss, or numbness or tingling of extremities. She complains of left hip pain. Pain is worse with movement. PHYSICAL EXAMINATION GENERAL: The patient is a thin 55-year-old female in no acute distress. She is awake and alert. VITAL SIGNS: Temperature 98.9, pulse 79, respirations 15, blood pressure 158/96. O2 sat is 97% on room air. HEAD: The patient is normocephalic. Pupils are equal. NECK: Soft, nontender. Trachea is midline. CHEST: Lungs are clear. ABDOMEN: Soft, nontender, nondistended. EXTREMITIES: Examination of bilateral upper extremities reveals no pain with shoulder, elbow or wrist motion. She has intact sensation in all fingers. She has good capillary refill in all fingers. Skin is intact. Radial pulses are palpable. Sensation is intact in all fingers. Examination of right leg reveals no significant pain with hip, knee or ankle motion. Skin is intact. Dorsalis pedis pulse is palpable. Examination of the left leg reveals pain with hip motion. She has no tenderness around her knee, tibia or ankle. Skin is intact. Dorsalis pedis pulse is palpable. Sensation is grossly intact in both feet. X-RAYS X-rays of the left hip were reviewed. X-rays reveal an impacted left femoral neck fracture. IMPRESSION Impacted left femoral neck fracture. PLAN The treatment options were discussed with the patient. At this point I would recommend left hip pinning. At this point her INR is 6.5. She will need Coumadin and vitamin-K to help reverse her Coumadin. I will tentatively plan on surgery tomorrow if her INR level is appropriate. The risks of surgery include bleeding, infection, injuries to arteries, nerves and blood vessels, painful hardware, avascular necrosis, nonunion, need for hip replacement, as well as medical complications including blood clot, stroke, heart attack and . All questions were answered. I will plan on surgery tomorrow. A mid-level provider in my office, nurse practitioner or PA, may see this patient on a follow-up basis and continue to implement the objective of this plan including: Starting or adjusting medications, injections of muscle, tendon, bursa or joints, cast application, orthotic or brace application, physical therapy, further radiographic studies including x-ray, MRI, CT, ultrasounds or bone scan, vascular studies, neurologic studies, or other specialist consultations, and proceeding with surgical management as appropriate. MD BELKYS Wood/BASHIR /11:33 AM /11:47 AM
--- NOTE | 2016-09-07 12:47 | RADRPT ---
EXAM DATE/TIME: 09/07/2016 12:00 [facility] COMPARISON: CHEST SINGLE AP, August 21, 2016, 14:28. INDICATIONS : Short of breath. MEDICAL HISTORY : None. SURGICAL HISTORY : None. ENCOUNTER: Initial ACUITY: 1 day PAIN SCORE: 0/10 LOCATION: Bilateral chest FINDINGS: A single view of the chest demonstrates the lungs to be symmetrically aerated without evidence of mas s, infiltrate or effusion. The cardiomediastinal contours are unremarkable. Osseous structures are intact. CONCLUSION: No acute disease. Shan Cardenas MD on September 07, 2016 at 12:45 Board Certified Radiologist. This report was verified electronically.
[2016-09-07] MEDS: DEXT 5%-NACL 0.9% 1000 ML INJ 1,000 ML IV SCH ×2 (14:06→22:23)
--- NOTE | 2016-09-07 15:31 | HHI.FPPN ---
Subjective Subjective Patient seen and examined. Case reviewed and discussed with the resident team. Please refer to resident H&P for further details regarding HPI, ROS, PMH, SurgHx , Fh and SocHx In summary, patient is a 55yoF with a recent hospitalization who presents this time with a reported mechanical fall at home. XR imaging on admission was notable for L femoral neck fracture Upon my arrival into the room, patient is lying in the ER bed, at the bedside. He reports that she is sleepy and that this is not her baseline. She did reportedly get IV morphine earlier this morning for pain control. Additionally, serum glucose this morning was noted to be low, and patient was started on dextrose. Patient is seen resting in bed, sleepy but awakens. Believes that she is in [place] at the [facility]. She is oriented to self and knows her . She denies any pain. [facility] Objective Objective Last Impressions Chest X-Ray 09/07/16 0000 Signed Impressions: Service Date/Time: Wednesday, September 07, 2016 12:00 - CONCLUSION: No acute disease. Shan Cardenas MD Hip and Pelvis X-Ray 09/06/16 0000 Signed Impressions: Service Date/Time: Tuesday, September 06, 2016 19:51 - CONCLUSION: Compressed proximal left femoral neck fracture at the junction of the femoral head and neck. Bal Bianchi MD Head CT 09/06/16 0000 Signed Impressions: Service Date/Time: Tuesday, September 06, 2016 19:41 - CONCLUSION: 1. Areas of encephalomalacia in the left frontal lobe and left basal ganglia. 2. Old lacunar infarct at the right thalamus. 3. Mild atrophy. 4. Suspected incidental 1 cm calcified meningioma at the right superior frontal parietal region which was present previously and does not appear to cause an significant mass effect. Bal Bianchi MD Laboratory Tests - Abnormals Test 09/06/16 09/06/16 09/07/16 09/07/16 20:30 20:50 03:19 12:22 Urine Ketones TRACE mg/dL Urine Occult Blood TRACE Urine Leukocyte Esterase LARGE Urine WBC 13 /hpf Urine Bacteria RARE /hpf Red Blood Count 3.58 MIL/MM3 3.35 MIL/MM3 Hemoglobin 10.2 GM/DL 9.5 GM/DL Hematocrit 30.3 % 28.4 % Prothrombin Time 76.2 SEC 78.5 SEC Prothromb Time International 6.4 RATIO 6.5 RATIO Ratio Activated Partial 55.1 SEC Thromboplast Time Blood Urea Nitrogen 34 MG/DL 30 MG/DL Creatinine 2.32 MG/DL 1.77 MG/DL Estimat Glomerular Filtration 22 ML/MIN 30 ML/MIN Rate Random Glucose 47 MG/DL 65 MG/DL Calcium Level 8.4 MG/DL 8.0 MG/DL Monocytes (%) (Auto) 8.9 % 25-Hydroxy Vitamin D Total 5.5 ng/ML Vital Signs 09/06/16 09/06/16 09/07/16 09/07/16 15:49 22:45 00:25 01:04 Temp 98.0 Pulse 90 78 79 74 Resp 18 B/P 136/85 184/87 203/90 164/101 Pulse Ox 91 97 96 96 O2 Delivery Room Air Room Air Room Air Room Air 09/07/16 09/07/16 09/07/16 09/07/16 02:22 05:49 08:30 08:30 Temp 98.9 Pulse 68 72 79 Resp 15 B/P 184/90 168/68 188/96 Pulse Ox 92 96 97 O2 Delivery Room Air Room Air Room Air Room Air 09/07/16 09/07/16 09/07/16 09/07/16 11:10 11:25 12:00 12:15 Temp 98.2 98.3 98.6 98.6 Pulse 65 65 62 63 Resp 18 15 16 B/P 116/86 122/77 138/85 144/87 Pulse Ox 97 95 96 95 O2 Delivery Room Air Room Air Room Air Room Air 09/07/16 09/07/16 09/07/16 13:59 14:17 14:29 Temp 98.8 98.1 98.1 Pulse 64 69 68 Resp 16 14 B/P 134/68 154/85 141/83 Pulse Ox 100 98 100 O2 Delivery Nasal Cannula Room Air Nasal Cannula O2 Flow Rate 2 Physical exam GENERAL: Sleepy, but awakens. Follows commands. Answers questions. SKIN: Warm and dry. Mild pallor HEAD: Normocephalic. Atraumatic EYES: No scleral icterus. No injection or drainage. ENT: OP clear, MM slightly dry. NECK: Supple, trachea midline. No JVD or lymphadenopathy. CARDIOVASCULAR: Regular rate and rhythm without audible murmurs, gallops, or rubs. RESPIRATORY: Breath sounds equal and clear to auscultation bilaterally. No accessory muscle use. GASTROINTESTINAL: Abdomen soft, non-tender, nondistended. : Cardoso intact to gravity, placed in ER MUSCULOSKELETAL: No cyanosis, or edema. No calf tenderness. There is pain over the left hip with movement. BACK: Nontender without obvious deformity. No CVA tenderness. Neuro: Sleepy, but awakens. Answers questions and follows commands. Patient does have mild residual right sided weakness from prior CVA. No new facial droop, per at baseline. She is oriented to self alone. Assessment Assessment 55-year-old female admitted with: Left femoral neck fracture status post mechanical fall at home Frequent falling Hypoglycemia,? Adrenal insufficiency on chronic steroids UTI Uncontrolled blood pressure History of CVA 3 Anticoagulated on Coumadin, now with supratherapeutic INR Acute on chronic renal failure Hypovitaminosis D lupus Report of diabetes mellitus II, previously on on metformin hypothyroidism arthritis hyperlipidemia depression/anxiety restless leg syndrome Rotator cuff tear: Fall 2014 [employer] PL[employer] Status post vitamin K and FFP, trend PT/INR Blood cultures, UA and urine culture Empiric antibiotics with Rocephin Serial Accu-Cheks Dextrose IV fluid Abdominal ultrasound, check proinsulin, insulin, C-peptide; though suspect hypoglycemia secondary to UTI Orthopedic consultation, plan for operative intervention tomorrow Blood pressure control Resume home meds as appropriate Avoid nephrotoxic medications Patient seen and examined. Case reviewed and discussed. Agree with plan of care as discussed with me and documented in the resident note. Mandy Riggs MD Sep 07, 2016 15:31
[2016-09-07] MEDS ORDERED: MORPHINE SULFATE 4 MG/ML INJ IV PRN (16:30)
[2016-09-07 16:49] LABS: INTERNATIONAL NORMALIZED RATIO 1.6 RATIO; PROTHROMBIN TIME - PATIENT 18.5 SEC (9.8-11.6)
--- NOTE | 2016-09-07 20:55 | RADRPT ---
EXAM DATE/TIME: 09/07/2016 19:40 [facility] COMPARISON: CT ABDOMEN & PELVIS W/O CONTRAST, August 20, 2016, 11:28. INDICATIONS : Abdominal pain. MEDICAL HISTORY : Hypercholesterolemia. Hypertension. Diabetes mellitus type 2. Hypothyroidism. CVA. Anticoagulant ther apy. Hiatal hernia. Arthritis. Fatty liver. Lupus. SURGICAL HISTORY : Cholecystectomy. Tubal ligation. Right oophorectomy. ENCOUNTER: Initial ACUITY: 1 day PAIN SCORE: 0/10 LOCATION: Abdomen. MEASUREMENTS: LIVER: 17.8 cm length COMMON DUCT: 6 mm RIGHT KIDNEY: 11.7 x 4.6 x 4.6 cm LEFT KIDNEY: 11.6 x 4.7 x 4.3 cm SPLEEN: 12.6 cm length AORTA: 2.1cm maximal FINDINGS: LIVER: There are some areas of increased echogenicity seen within liver which may represent some areas of fa tty deposition. The liver is upper limits of normal for size. COMMON DUCT: No intraluminal mass or stone visualized. GALLBLADDER: The patient is status post cholecystectomy. PANCREAS: The pancreas is not well-visualized. RIGHT KIDNEY: No hydronephrosis, stone or mass. LEFT KIDNEY: No hydronephrosis, stone or mass. SPLEEN: Spleen is upper limits of normal for size. AORTA: Non aneurysmal. IVC: Within normal limits. CONCLUSION: 1. The liver and spleen are upper limits of normal for size. 2. Areas of increased echogenicity with the liver which may represent areas of fatty deposition. 3. Status post cholecystectomy. Bal Bianchi MD on September 07, 2016 at 20:49 Board Certified Radiologist. This report was verified electronically.
[2016-09-07] MEDS ORDERED: NON-FORMULARY DRUG (Simvastatin 40 MG) PO SCH (21:00)
[2016-09-07] MEDS: cefTRIAXone INJ 1,000 MG in SODIUM CHLORIDE 0.9% INJ 100 ML IV SCH (22:20)
[2016-09-07] MEDS: PRAVASTATIN SOD 80 MG TAB PO SCH (22:20)
[2016-09-07] MEDS: HYDROCORTISONE 10 MG TAB PO SCH (22:20)
--- NOTE | 2016-09-07 22:44 | RADRPT ---
EXAM DATE/TIME: 09/06/2016 19:51 [facility] COMPARISON: No previous studies available for comparison. INDICATIONS : Fall. Left hip pain. MEDICAL HISTORY : Hypertension. Stroke. Lupus. SURGICAL HISTORY : None. ENCOUNTER: Initial ACUITY: 3 days PAIN SCORE: 9/10 LOCATION: Left hip FINDINGS: Again noted is a fracture at the base of the femoral head and proxima femoral neck region with some c ompression. The hip joint and knee joints are normally aligned. The femur is otherwise intact. Vasc ular calcifications are seen. CONCLUSION: Proximal left femoral neck fracture. Bal Bianchi MD on September 06, 2016 at 20:21 Board Certified Radiologist. This report was verified electronically.
[2016-09-07 23:34] LABS: INTERNATIONAL NORMALIZED RATIO 1.4 RATIO; PROTHROMBIN TIME - PATIENT 15.6 SEC (9.8-11.6)
[2016-09-08] VITALS (8 sets, daily range): BP systolic 100–183; BP diastolic 52–95; PULSE 64–80; RESP 16–18; TEMP 97.4–98.9; O2SAT 93–99
--- NOTE | 2016-09-08 06:43 | PD.ORT.PN ---
Subjective Subjective Remarks Resting comfortably. Pain controlled Objective Vitals Vital Signs Date Time Temp Pulse Resp B/P Pulse Ox O2 Delivery O2 Flow Rate FiO2 09/08/16 00:00 98.0 64 18 173/91 97 09/07/16 20:00 97.5 67 20 138/79 99 09/07/16 16:55 97.3 69 16 114/71 98 09/07/16 16:00 98.4 72 17 120/70 99 Nasal Cannula 2 09/07/16 14:29 98.1 68 14 141/83 100 Nasal Cannula 2 09/07/16 14:17 98.1 69 16 154/85 98 Room Air 09/07/16 13:59 98.8 64 15 134/68 100 Nasal Cannula 09/07/16 12:15 98.6 63 16 144/87 95 Room Air 09/07/16 12:00 98.6 62 15 138/85 96 Room Air 09/07/16 11:25 98.3 65 18 122/77 95 Room Air 09/07/16 11:10 98.2 65 17 116/86 97 Room Air 09/07/16 08:30 Room Air 09/07/16 08:30 98.9 79 15 188/96 97 Room Air I/O 09/07/16 09/07/16 09/07/16 09/08/16 09/08/16 09/08/16 07:00 15:00 23:00 07:00 15:00 23:00 Intake Total 392 ml 0 ml Output Total 400 ml Balance 392 ml -400 ml Intake Oral 0 ml FFP 392 ml Output Urine Total 400 ml # Voids 0 # Bowel Movements 0 Result Diagram: 09/07/169 09/07/169 Other Results Laboratory Tests Test 09/07/16 09/07/16 16:24 23:00 Prothrombin Time 18.5 SEC 15.6 SEC (9.8-11.6) (9.8-11.6) Prothromb Time International 1.6 RATIO 1.4 RATIO Ratio Imaging Last 24 hours Impressions Abdomen Ultrasound 09/07/16 1210 Signed Impressions: Service Date/Time: Wednesday, September 07, 2016 19:40 - CONCLUSION: 1. The liver and spleen are upper limits of normal for size. 2. Areas of increased echogenicity with the liver which may represent areas of fatty deposition. 3. Status post cholecystectomy. Bal Bianchi MD Objective Remarks LLE: pain in hip with motion. Distally neurovascularly intact. Assessment & Plan Assessment and Plan 1) Left impacted femoral neck fx -sign consents -INR 1.4 Nothing by mouth Surgery this morning with Dr. Felix GALINDO,NEGRO Junior PA-C Sep 08, 2016 06:43
[2016-09-08] MEDS: HYDROCORTISONE 10 MG TAB PO SCH ×2 (09:00→21:23)
[2016-09-08] MEDS: SODIUM CHLORIDE 0.9% FLUSH 5 ML FLUSH FLUSH SCH ×2 (09:00→21:20)
[2016-09-08] MEDS: POLYETHYLENE GLYCOL 17 GM PKG PO SCH (09:00)
[2016-09-08] MEDS: CITALOPRAM HYDROBROMIDE 40 MG TAB PO SCH (09:00)
[2016-09-08] MEDS: FLUDROCORTISONE ACETATE 0.1 MG TAB PO SCH (09:00)
[2016-09-08] MEDS: risperiDONE 1 MG TAB PO SCH (09:00)
[2016-09-08] MEDS: FERROUS SULFATE 325 MG (65 MG ELEMENTAL IRON) TAB PO SCH (09:00)
[2016-09-08] MEDS: ASPIRIN EC 81 MG TABEC PO SCH (09:00)
[2016-09-08] MEDS: amLODIPine BESYLATE 5 MG TAB PO SCH (09:00)
[2016-09-08] MEDS: DEXT 5%-NACL 0.9% 1000 ML INJ 1,000 ML IV SCH (10:14)
[2016-09-08] MEDS: LACTATED RINGER'S 1000 ML IV SCH (10:45)
[2016-09-08] MEDS: SODIUM CHLORID 0.9% 500 ML IV SCH (10:45)
[2016-09-08] MEDS ORDERED: VANCOMYCIN HCL 1000 MG VIAL ONE (10:51)
[2016-09-08] MEDS ORDERED: SODIUM CHLOR 0.9% 250 ML INJ 250 ML ONE (10:51)
[2016-09-08] MEDS ORDERED: ceFAZolin 2 GM PREMIX 50 ML ONE (10:51)
[2016-09-08] MEDS ORDERED: BUPIVACAINE/EPINEPHRINE 0.25% PF 10 ML VIAL ONE (10:52)
[2016-09-08] MEDS ORDERED: MIDAZOLAM HCL 2 MG/2 ML VIAL ONE (10:58)
[2016-09-08] MEDS ORDERED: ACETAMINOPHEN 1000 MG/100 ML VIAL IV ONE (10:58)
[2016-09-08] MEDS ORDERED: fentaNYL CITRATE 250 MCG/5 ML AMP ONE (10:58)
[2016-09-08] MEDS ORDERED: DEXAMETHASONE SOD PHOS 4 MG/ML VIAL ONE (10:58)
--- NOTE | 2016-09-08 10:58 | HHI.FPPN ---
Subjective Remarks Patient seen and examined. No acute events overnight. BP labile ranging from 114 -183/80-90s. Other vital signs stable. Afebrile. Her states that patient seems more confused this morning. Does not know where she's at. She knows that she fell and broke her hip and she is scheduled for surgery this morning but thinks she is still at home. Her pain is controlled. (Arcelia Venegas MD R3) Objective Vitals Vital Signs Date Time Temp Pulse Resp B/P Pulse Ox O2 Delivery O2 Flow Rate FiO2 09/08/16 09:55 98.9 74 18 183/88 94 09/08/16 08:00 98.3 73 16 163/95 99 09/08/16 04:00 97.9 66 18 177/91 96 09/08/16 00:00 98.0 64 18 173/91 97 09/07/16 20:00 97.5 67 20 138/79 99 09/07/16 16:55 97.3 69 16 114/71 98 09/07/16 16:00 98.4 72 17 120/70 99 Nasal Cannula 2 09/07/16 14:29 98.1 68 14 141/83 100 Nasal Cannula 2 09/07/16 14:17 98.1 69 16 154/85 98 Room Air 09/07/16 13:59 98.8 64 15 134/68 100 Nasal Cannula 09/07/16 12:15 98.6 63 16 144/87 95 Room Air 09/07/16 12:00 98.6 62 15 138/85 96 Room Air 09/07/16 11:25 98.3 65 18 122/77 95 Room Air 09/07/16 11:10 98.2 65 17 116/86 97 Room Air I/O 09/07/16 09/07/16 09/07/16 09/08/16 09/08/16 09/08/16 07:00 15:00 23:00 07:00 15:00 23:00 Intake Total 392 ml 0 ml Output Total 400 ml 750 ml 500 ml Balance 392 ml -400 ml -750 ml -500 ml Intake Oral 0 ml FFP 392 ml Output Urine Total 400 ml 750 ml 500 ml # Voids 0 # Bowel Movements 0 0 (Arcelia Venegas MD R3) Result Diagram: 09/07/1631809/07/16318 Imaging Abdomen Ultrasound 09/07/16 1210 Signed Impressions: Service Date/Time: Wednesday, September 07, 2016 19:40 - CONCLUSION: 1. The liver and spleen are upper limits of normal for size. 2. Areas of increased echogenicity with the liver which may represent areas of fatty deposition. 3. Status post cholecystectomy. Bal Bianchi MD Chest X-Ray 09/07/16 0000 Signed Impressions: Service Date/Time: Wednesday, September 07, 2016 12:00 - CONCLUSION: No acute disease. Shan Cardenas MD Hip and Pelvis X-Ray 09/06/16 0000 Signed Impressions: Service Date/Time: Tuesday, September 06, 2016 19:51 - CONCLUSION: Compressed proximal left femoral neck fracture at the junction of the femoral head and neck. Bal Bianchi MD Head CT 09/06/16 0000 Signed Impressions: Service Date/Time: Tuesday, September 06, 2016 19:41 - CONCLUSION: 1. Areas of encephalomalacia in the left frontal lobe and left basal ganglia. 2. Old lacunar infarct at the right thalamus. 3. Mild atrophy. 4. Suspected incidental 1 cm calcified meningioma at the right superior frontal parietal region which was present previously and does not appear to cause an significant mass effect. Bal Bianchi MD Objective Remarks GENERAL: WNWD female in NAD. Awake and alert. Appears older than stated age. SKIN: Warm and dry. Mild pallor HEAD: Normocephalic. Atraumatic EYES: PERRLA. No scleral icterus. No injection or drainage. ENT: OP clear, Dry mucous membranes NECK: Supple, trachea midline. CARDIOVASCULAR: Regular rate and rhythm without audible murmurs, gallops, or rubs. RESPIRATORY: Breath sounds equal and clear to auscultation bilaterally. No accessory muscle use. GASTROINTESTINAL: Abdomen soft, non-tender, nondistended. Active bowel sounds. : Cardoso intact to gravity; clear/yellow urine, placed in ER MUSCULOSKELETAL: No cyanosis, or edema. No calf tenderness. Pain over left hip. BACK: Nontender without obvious deformity. NEURO/PSYCH: Awake, alert but only oriented to self and situation. Does not recall time, date, or place. Otherwise, able to answers questions and follow commands appropriately. Flat affect. (Arcelia Venegas MD R3) A/P Assessment and Plan 55-year-old female with past medical history of hypertension, diabetes, hyperlipidemia admitted for left femoral neck fracture, UTI, and supratherapeutic INR. d/w Dr. Riggs Discharge Planning Discharge pending clinical improvement. Will likely need inpatient rehab. ( Arcelia Venegas MD R3) Attending Attestation Patient seen and examined. Case reviewed and discussed with the resident team Agree with plan of care as discussed with me and documented in the resident note. Patient doing well post-operative. Glucose elevated, spoke with RN and will change D5 fluids to LR post-op. Monitor accuchecks q2h x 2, then q4h after that Discussed with patient and at the bedside. (Mandy Riggs MD) Problem List: (1) Fracture of femoral neck, left Status: Acute Plan: s/p mechanical fall. Hip/pelvic and femur x-ray significant for compressed proximal left femoral neck fracture at junction of femoral head and neck. -Orthopedics consulted: * OR today -Pain control: * [place] 5mg po Q4hrs prn pain * [place] 10mg po Q4h prn severe pain * Morphine 2mg Q3hrs prn breakthrough pain * Bed rest with precautions -PT eval & treat. Patient will likely need inpatient rehab (2) Fall Status: Acute Plan: Likely etiology mechanical, but easily could be supratherapeutic gabapentin, opioid use, dehydration, UTI, hypotension, hypoglycemia. Head CT unchanged from previous scans. -Treat fracture as above -Treat UTI as below -Continue IVFs with D5 1/2 NS at 90cc/hr -Patient is very deconditioned. PT consulted. Will likely need rehab (3) UTI (lower urinary tract infection) Status: Acute Plan: Cath UA significant for pyuria and leuk esterase. Lactic acid 0.7. No leukocytosis. VSSAF. Ucx positive for Group D enterococcus. Sensitivity pending -Continue Rocephin 1 g daily IV (09/06-) -Blood culture pending (4) JAMAL (acute kidney injury) Status: Resolved Plan: Creatinine 2.32 on admission but trending down. Her baseline creatinine ~ 1. JAMAL likely secondary to dehydration/infection -Continue IVFs -Treat UTI per above -Monitor renal function (5) rule out adrenal insufficiency Status: Resolved Plan: Patient with history of hypoglycemia, hypotension, AMS, weight loss. Cortisol level has been low on previous admission. There has been question of poss. adrenal insufficiency in the past. She was started on Florinef and Hydrocortisone during previous hospitalization. BG and BP remained stable; however she was found to have hypoglycemia on this admission (BG 47). Glucose stable on IVFs with dextrose. -Continue D5 1/2 NS -Continue Florinef 0.1 mg daily and Hydrocortisone 10mg BID. Will consider tapering off hydrocortisone. -Accucheck -C-peptide and insulin levels pending -Will need further workup with outpatient endocrinology Imaging: Ab u/s: Area of increased echogenicity in the liver that may represent areas of fatty deposit. Liver and spleen are upper limits of normal for size. Pancreas is not well-visualized. (6) Subtherapeutic international normalized ratio (INR) Status: Acute Plan: Patient on Coumadin for history of prior strokes, INR on admission 6.4 but is 1.4 today s/p Vitamin K po and IV as well as 2 units of FFP -Coumadin on hold for surgery this morning -Resume anticoagulation postoperatively per ortho -Monitor coag profile (7) Vitamin D deficiency Status: Acute Plan: Vitamin D 5.5 -Start D2 50,000 units Q7days (8) Diabetes mellitus Status: Chronic Plan: History of T2DM and was on Metformin. Recently has had several episodes of hypoglycemia -Monitor glucose closely (9) History of CVA (cerebrovascular accident) Status: Resolved Plan: Patient on Coumadin but currently on hold secondary to surgical repair of left hip fracture. -Continue ASA 81mg, statin -BP control with current antihypertensive (10) Labile blood pressure Status: Chronic Plan: BP remains labile. -Monitor closely -Currently on Amlodipine 5mg. -Home dose of Lisinopril on hold secondary to JAMAL -Hydralazine prn BP>160/90 (11) Hyperlipidemia Status: Chronic Plan: Continue home dose of Pravachol (12) DEN (obstructive sleep apnea) Status: Acute Plan: CPAP at night (13) Depression with anxiety Status: Acute Plan: Continue home dose of Celexa and Risperidone (14) Nutrition, metabolism, and development symptoms Status: Acute Plan: Diet: Fluid: D5 1/2 NS at 90cc/hr Electrolytes: BMP pending DVT ppx: Chemical anticoagulation on hold for surgery today. Resume anticoagulation postoperatively. (Venegas,Arcelia MD R3) Problem Qualifiers (1) Fracture of femoral neck, left: Qualified Code: S72.002A - Closed fracture of neck of left femur, initial encounter (2) Fall: Qualified Code: W19.XXXA - Fall, initial encounter (3) Diabetes mellitus: Qualified Code: E11.9 - Type 2 diabetes mellitus without complication, without long-term current use of insulin Arcelia Venegas MD R3 Sep 08, 2016 10:58 Mandy Riggs MD Sep 09, 2016 15:26
[2016-09-08] MEDS ORDERED: DEXAMETHASONE SOD PHOS 4 MG/ML VIAL IV PUSH ONE (11:15)
[2016-09-08] MEDS ORDERED: PROPOFOL 200 MG/20 ML AMP IV ONE (12:00)
[2016-09-08] MEDS ORDERED: ONDANSETRON HCL 4 MG/2 ML VIAL IV PUSH ONE (12:00)
[2016-09-08] MEDS ORDERED: LACTATED RINGER'S 1000 ML INJ 1,000 ML IV ONE (12:00)
[2016-09-08] MEDS ORDERED: ACETAMINOPHEN/HYDROcodone 325 MG/5 MG TAB PO PRN (12:00)
[2016-09-08] MEDS ORDERED: SODIUM CHLORIDE 0.9% FLUSH 5 ML FLUSH IVF PRN (12:00)
[2016-09-08] MEDS ORDERED: Post-op Orders (for Pharmacy) MISC XX ONE (12:00)
[2016-09-08] MEDS ORDERED: MORPHINE SULFATE 4 MG/ML INJ IV PUSH PRN (12:00)
--- NOTE | 2016-09-08 12:02 | PD.OP ---
cc: Gilbert Tripp MD Operative Report Date of Surgery: Sep 08, 2016 Preoperative Diagnosis: Impacted left femoral neck fracture Postoperative Diagnosis: Procedure: Left hip pinning Anesthesia: Gen. Surgeon: Gilbert Tripp Gantry Rigger(s): EMILY Suero PA-C The surgical procedure was assisted by my physician family law legal assistant. My P.A. presence was necessary throughout this case for the manipulation and positioning of the surgical extremity. My P.A. was assisting me throughout the duration of this procedure. The skill set of a physician family law legal assistant was medically necessary to complete this procedure. During the surgical case the surgical appliances salesperson was working at the back table and the physician family law legal assistant was directly assisting me. Operation and Findings: Plan of activity: TTWB Patient was seen and evaluated preoperatively. The patient has significant left hip pain from impacted femoral neck fracture. The risk and benefits of surgery were discussed in depth with the patient to include bleeding infection nonunion malunion, avascular necrosis and need for hip replacement painful hardware as well as medical competitions including but not stroke heart attack and . Informed consent was obtained. Operative site was marked. Patient was brought to the operating room and placed on fracture table. IV sedation was administered by anesthesiologist. Timeout procedure was performed. Hip and leg were prepped with alcohol followed by Hibiclens and draped in the usual sterile fashion. IV antibiotics were given prior to incision. Procedure began with evaluation of fracture under fluoroscopy. Leg was gently manipulated to improve alignment. Excellent reduction was achieved. Fluoroscopy was used to confirm reduction. A three cm incision was along the lateral aspect of the proximal femur . Subcutaneous tissue was dissected bluntly. Three guidepins were placed through the lateral cortex of the proximal femur. Guide pins were placed in an inverted triangle position. Guide pins were advanced across the fracture site into the femoral head. Fluoroscopy confirmed appropriate guidepin placement. The screw lengths were measured. A cannulated drill was placed over each of the guide pins. Appropriate length Synthes 7.3 cannulated screws were placed over the guidepins. Good compression was applied across the fracture. Final fluoroscopy revealed well aligned fracture with well-placed hardware. Incision was closed with 3-0 Vicryl and wale. Sterile dressings were applied. Patient was awakened and transferred to recovery room. Gilbert Tripp MD Sep 08, 2016 12:02
--- NOTE | 2016-09-08 12:30 | RADRPT ---
EXAM DATE/TIME: 09/08/2016 11:53 [facility] COMPARISON: No previous studies available for comparison. INDICATIONS : ORIF left hip pinning. MEDICAL HISTORY : None. SURGICAL HISTORY : None. ENCOUNTER: Subsequent ACUITY: 3 days PAIN SCORE: Non-responsive. LOCATION: Left hip. CONCLUSION: Fluoroscopic images during placement of 3 pins in the left hip. Ti Wheeler MD on September 08, 2016 at 12:28 Board Certified Radiologist. This report was verified electronically.
[2016-09-08] MEDS ORDERED: *LABETALOL HCL 100 MG/20 ML VIAL PERIprocedural Use ONLY ONE (12:35)
[2016-09-08] MEDS ORDERED: *morphine SULFATE 8 MG/ML PERIprocedure ONLY ONE ×2 (12:42→12:52)
[2016-09-08] MEDS ORDERED: *ENALAPRILAT 1.25 MG/ML VIAL PERIprocedural Use ONLY ONE (12:44)
[2016-09-08] MEDS ORDERED: ERGOCALCIFEROL (VIT D2) 50,000 UNIT CAP PO ONE (13:00)
[2016-09-08 15:11] LABS: AUTOMATED NEUTROPHIL # 6.5 TH/MM3 (1.8-7.7); BASOPHIL % 0.3 % (0.0-2.0); EOSINOPHIL % 0.4 % (0.0-4.0); HEMATOCRIT 26.2 % (35.0-46.0); HEMO FLAGS DIFF FINAL; LYMPH % 7.7 % (9.0-44.0); LYMPHOCYTE # 0.6 TH/MM3 (1.0-4.8); MEAN CELL VOLUME 85.2 FL (80.0-100.0); MEAN CORPUSCULAR HEMOGLOBIN 28.2 PG (27.0-34.0); MEAN CORPUSCULAR HGB CONC 33.2 % (32.0-36.0); MONO % 2.1 % (0.0-8.0); NEUT % 89.5 % (16.0-70.0); PLATELET COUNT 207 TH/MM3 (150-450); RED BLOOD COUNT 3.07 MIL/MM3 (4.00-5.30); RED CELL DISTRIBUTION WIDTH 15.9 % (11.6-17.2); WHITE BLOOD COUNT 7.3 TH/MM3 (4.0-11.0)
[2016-09-08 15:35] LABS: BICARBONATE 26.6 MEQ/L (21.0-32.0); POTASSIUM 3.5 MEQ/L (3.5-5.1)
[2016-09-08] MEDS: LACTATED RINGER'S 1000 ML INJ 1,000 ML IV SCH (17:30)
[2016-09-08] MEDS: SODIUM CHLORIDE 0.9% FLUSH 5 ML FLUSH IVF SCH (21:00)
[2016-09-08] MEDS: PRAVASTATIN SOD 80 MG TAB PO SCH (21:19)
[2016-09-08] MEDS: ACETAMINOPHEN/HYDROcodone 325 MG/5 MG TAB PO PRN (21:20)
--- NOTE | 2016-09-08 22:56 | EKG ---
Date Performed: 09/07/2016 Time Performed: 22:20:36 PTAGE: 55 years EKG: Sinus rhythm NONSPECIFIC T-WAVE ABNORMALITY PROLONGED QT INTERVAL ABNORMAL ECG PREVIOUS TRACING : 08/21/2016 14.00 DOCTOR: Jamal Ayers Interpretating Date/Time 09/08/2016 22:53:55
[2016-09-08] MEDS ORDERED: INSULIN HUMAN REGULAR 1,000 UNITS/10 ML VIAL SQ PRN (23:45)
[2016-09-08] MEDS: cefTRIAXone INJ 1,000 MG in SODIUM CHLORIDE 0.9% INJ 100 ML IV SCH (23:54)
[2016-09-09] VITALS (8 sets, daily range): BP systolic 108–179; BP diastolic 72–96; PULSE 70–90; RESP 18; TEMP 97.6–99.4; O2SAT 92–98
[2016-09-09] MEDS ORDERED: ENOXAPARIN SODIUM 30 MG/0.3 ML SYRINGE SQ SCH
[2016-09-09] MEDS: SODIUM CHLORID 0.9% 500 ML IV SCH (03:25)
[2016-09-09] MEDS: LACTATED RINGER'S 1000 ML INJ 1,000 ML IV SCH ×3 (04:37→23:15)
[2016-09-09 05:14] LABS: BASOPHIL % 0.4 % (0.0-2.0); HEMATOCRIT 25.1 % (35.0-46.0); HEMO FLAGS DIFF FINAL; LYMPH % 11.1 % (9.0-44.0); LYMPHOCYTE # 0.8 TH/MM3 (1.0-4.8); MEAN CELL VOLUME 84.2 FL (80.0-100.0); MEAN CORPUSCULAR HEMOGLOBIN 28.4 PG (27.0-34.0); MEAN CORPUSCULAR HGB CONC 33.7 % (32.0-36.0); MONO % 7.2 % (0.0-8.0); NEUT % 81.3 % (16.0-70.0); PLATELET COUNT 218 TH/MM3 (150-450); RED BLOOD COUNT 2.98 MIL/MM3 (4.00-5.30); RED CELL DISTRIBUTION WIDTH 16.1 % (11.6-17.2); WHITE BLOOD COUNT 7.4 TH/MM3 (4.0-11.0)
[2016-09-09 05:24] LABS: APTT (PATIENT) 29.9 SEC (24.3-30.1); INTERNATIONAL NORMALIZED RATIO 1.1 RATIO; PROTHROMBIN TIME - PATIENT 12.7 SEC (9.8-11.6)
[2016-09-09 05:37] LABS: BICARBONATE 26.8 MEQ/L (21.0-32.0); POTASSIUM 3.9 MEQ/L (3.5-5.1)
[2016-09-09] MEDS ORDERED: ERGOCALCIFEROL (VIT D2) 50,000 UNIT CAP PO SCH (06:00)
[2016-09-09] MEDS ORDERED: NORC5TAB PO (06:30)
--- NOTE | 2016-09-09 07:44 | PD.ORT.PN ---
Subjective Subjective Remarks Resting comfortably. Pain controlled Objective Vitals Vital Signs Date Time Temp Pulse Resp B/P Pulse Ox O2 Delivery O2 Flow Rate FiO2 09/09/16 04:09 97.8 71 18 130/74 98 09/09/16 00:15 97.7 70 18 132/73 96 09/08/16 22:14 96 Nasal Cannula 2.00 09/08/16 20:11 97.4 80 16 142/89 96 09/08/16 19:57 Nasal Cannula 2.00 09/08/16 16:08 98.1 77 16 121/75 93 09/08/16 14:00 98.4 69 15 145/94 96 Nasal Cannula 3 09/08/16 13:30 70 17 159/95 97 Nasal Cannula 3 09/08/16 13:15 69 15 171/95 99 Nasal Cannula 3 09/08/16 13:00 68 15 172/97 99 Nasal Cannula 3 09/08/16 12:50 69 16 177/97 100 Nasal Cannula 3 09/08/16 12:45 70 15 204/107 99 Nasal Cannula 3 09/08/16 12:30 86 15 195/114 99 Nasal Cannula 3 09/08/16 12:20 86 16 173/106 99 Nasal Cannula 3 09/08/16 12:14 98.3 89 14 166/101 95 Nasal Cannula 3 09/08/16 10:00 94 Nasal Cannula 2.00 09/08/16 09:55 98.9 74 18 183/88 94 09/08/16 08:00 98.3 73 16 163/95 99 I/O 09/08/16 09/08/16 09/08/16 09/09/16 09/09/16 09/09/16 07:00 15:00 23:00 07:00 15:00 23:00 Intake Total 1320 ml 3743 ml 1076 ml Output Total 750 ml 900 ml 400 ml 1050 ml Balance -750 ml 420 ml 3343 ml 26 ml Intake Oral 720 ml 520 ml 550 ml IV Total 200 ml 3223 ml 526 ml Other 400 ml Output Urine Total 750 ml 850 ml 400 ml 1050 ml Estimated Blood Loss 50 ml # Bowel Movements 0 0 0 Result Diagram: 09/09/16 0421 09/09/16 0421 Other Results Laboratory Tests Test 09/09/16 04:21 Prothrombin Time 12.7 SEC (9.8-11.6) Prothromb Time International 1.1 RATIO Ratio Imaging Last 24 hours Impressions Abdomen Ultrasound 09/07/16 1210 Signed Impressions: Service Date/Time: Wednesday, September 07, 2016 19:40 - CONCLUSION: 1. The liver and spleen are upper limits of normal for size. 2. Areas of increased echogenicity with the liver which may represent areas of fatty deposition. 3. Status post cholecystectomy. Bal Bianchi MD Objective Remarks LLE: Clean dry dressings intact. Intact sensation distally with strong dorsiflexion plantar flexion of foot Assessment & Plan Assessment and Plan 1) Left impacted femoral neck fx POD 1 percutaneous pinning of hip Physical therapy for toe-touch weightbearing left lower extremity, no active leglifts Resume Coumadin, with bridging Lovenox Case management for rehabilitation placement Incentive spirometry NEGRO GALINDO PA-C Sep 09, 2016 07:44
--- NOTE | 2016-09-09 09:18 | HHI.FPPN ---
Subjective Remarks POD # s/p percutaneous pinning of left hip. No acute events overnight. Vital signs stable. Afebrile. States that her pain is controlled. Denies any specific complaints this morning. Has not had a BM yet but feels like she needs to this morning. Denies nausea, vomiting, or abdominal pain. (Arcelia Venegas MD R3) Objective Vitals Vital Signs Date Time Temp Pulse Resp B/P Pulse Ox O2 Delivery O2 Flow Rate FiO2 09/09/16 04:09 97.8 71 18 130/74 98 09/09/16 00:15 97.7 70 18 132/73 96 09/08/16 22:14 96 Nasal Cannula 2.00 09/08/16 20:11 97.4 80 16 142/89 96 09/08/16 19:57 Nasal Cannula 2.00 09/08/16 16:08 98.1 77 16 121/75 93 09/08/16 14:00 98.4 69 15 145/94 96 Nasal Cannula 3 09/08/16 13:30 70 17 159/95 97 Nasal Cannula 3 09/08/16 13:15 69 15 171/95 99 Nasal Cannula 3 09/08/16 13:00 68 15 172/97 99 Nasal Cannula 3 09/08/16 12:50 69 16 177/97 100 Nasal Cannula 3 09/08/16 12:45 70 15 204/107 99 Nasal Cannula 3 09/08/16 12:30 86 15 195/114 99 Nasal Cannula 3 09/08/16 12:20 86 16 173/106 99 Nasal Cannula 3 09/08/16 12:14 98.3 89 14 166/101 95 Nasal Cannula 3 09/08/16 10:00 94 Nasal Cannula 2.00 09/08/16 09:55 98.9 74 18 183/88 94 I/O 09/08/16 09/08/16 09/08/16 09/09/16 09/09/16 09/09/16 07:00 15:00 23:00 07:00 15:00 23:00 Intake Total 1320 ml 3743 ml 1076 ml Output Total 750 ml 900 ml 400 ml 1050 ml Balance -750 ml 420 ml 3343 ml 26 ml Intake Oral 720 ml 520 ml 550 ml IV Total 200 ml 3223 ml 526 ml Other 400 ml Output Urine Total 750 ml 850 ml 400 ml 1050 ml Estimated Blood Loss 50 ml # Bowel Movements 0 0 0 (Arcelia Venegas MD R3) Result Diagram: 09/09/1642009/09/161 Imaging Last Impressions Hip X-Ray 09/08/16 0000 Signed Impressions: Service Date/Time: Thursday, September 08, 2016 11:53 - CONCLUSION: Fluoroscopic images during placement of 3 pins in the left hip. Ti Wheeler MD Abdomen Ultrasound 09/07/16 1210 Signed Impressions: Service Date/Time: Wednesday, September 07, 2016 19:40 - CONCLUSION: 1. The liver and spleen are upper limits of normal for size. 2. Areas of increased echogenicity with the liver which may represent areas of fatty deposition. 3. Status post cholecystectomy. Bal Bianchi MD Chest X-Ray 09/07/16 0000 Signed Impressions: Service Date/Time: Wednesday, September 07, 2016 12:00 - CONCLUSION: No acute disease. Shan Cardenas MD Hip and Pelvis X-Ray 09/06/16 0000 Signed Impressions: Service Date/Time: Tuesday, September 06, 2016 19:51 - CONCLUSION: Compressed proximal left femoral neck fracture at the junction of the femoral head and neck. Bal Bianchi MD Head CT 09/06/16 0000 Signed Impressions: Service Date/Time: Tuesday, September 06, 2016 19:41 - CONCLUSION: 1. Areas of encephalomalacia in the left frontal lobe and left basal ganglia. 2. Old lacunar infarct at the right thalamus. 3. Mild atrophy. 4. Suspected incidental 1 cm calcified meningioma at the right superior frontal parietal region which was present previously and does not appear to cause an significant mass effect. Bal Bianchi MD Femur X-Ray 09/06/16 0000 Signed Impressions: Service Date/Time: Tuesday, September 06, 2016 19:51 - CONCLUSION: Proximal left femoral neck fracture. Bal Bianchi MD Objective Remarks GENERAL: WNWD female in NAD. Awake and alert. Appears older than stated age. SKIN: Warm and dry. Mild pallor HEAD: Normocephalic. Atraumatic EYES: PERRLA. No scleral icterus. No injection or drainage. ENT: OP clear NECK: Supple, trachea midline. CARDIOVASCULAR: Regular rate and rhythm without audible murmurs, gallops, or rubs. RESPIRATORY: Breath sounds equal and clear to auscultation bilaterally. No accessory muscle use. GASTROINTESTINAL: Abdomen soft, non-tender, nondistended. Active bowel sounds. MUSCULOSKELETAL: No cyanosis, or edema. No calf tenderness. FROM in both feet. Sensation intact in bilateral LE. Dressing c/d/i BACK: Nontender without obvious deformity. NEURO/PSYCH: Awake, alert but only oriented to self and situation. Does not recall time, date, or place. Otherwise, able to answers questions and follow commands appropriately. Flat affect. (Arcelia Venegas MD R3) A/P Assessment and Plan 55-year-old female with past medical history of hypertension, diabetes, hyperlipidemia admitted for left femoral neck fracture, UTI, and supratherapeutic INR. She is POD #1 and doing well clinically. d/w Dr. Riggs Discharge Planning Discharge pending clinical improvement. Will likely need inpatient rehab. ( Arcelia Venegas MD R3) Attending Attestation Patient seen and examined. Case reviewed and discussed Agree with plan of care as discussed with me and documented in the resident note. (Mandy Riggs MD) Problem List: (1) Fracture of femoral neck, left Status: Acute Plan: Postop day #1 status post percutaneous pinning of left hip -Orthopedics consulted: * Start PT: Toe weightbearing of left lower extremity. No active leg limits. * Resume Coumadin 5mg po with Lovenox bridging. 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 Head CT unchanged from previous scans. -Treat fracture as above -Treat UTI as below -Continue IVFs with LR. Discontinue once patient can tolerate oral fluid hydration. -Continue PT (3) UTI (lower urinary tract infection) Status: Acute Plan: Cath UA significant for pyuria and leuk esterase. Lactic acid 0.7. No leukocytosis. VSSAF. Ucx: Enterococcus faecalis;sensitivity pending -Continue Rocephin 1 g daily IV (09/06-) -Blood culture NGTD (4) JAMAL (acute kidney injury) Status: Resolved Plan: Creatinine 2.32 on admission JAMAL resolved s/p IVFs. -Continue IVFs -Treat UTI per above -Monitor renal function -Hold ACEI -Avoid nephrotoxic agents (5) rule out adrenal insufficiency Status: Resolved Plan: Patient with history of hypoglycemia, hypotension, AMS, weight loss. Cortisol level has been low on previous admission. There has been question of poss. adrenal insufficiency in the past. She was started on Florinef and Hydrocortisone during previous hospitalization. BG and BP remain stable. -Continue IVF -Continue Florinef 0.1 mg daily and Hydrocortisone 10mg BID. Will consider tapering off hydrocortisone. -Accucheck -C-peptide and insulin levels pending -Will need further workup with outpatient endocrinology Imaging: Ab u/s: Area of increased echogenicity in the liver that may represent areas of fatty deposit. Liver and spleen are upper limits of normal for size. Pancreas is not well-visualized. (6) Subtherapeutic international normalized ratio (INR) Status: Resolved Plan: Patient on Coumadin for history of prior strokes, INR on admission 6.4 but now subtherapeutic s/p Vitamin K po and IV as well as 2 units of FFP -Resume Coumadin 5mg po daily and bridge with Lovenox until therapeutic -Monitor coag profile (7) Vitamin D deficiency Status: Acute Plan: Vitamin D 5.5 -Vitamin D2 50,000 units Q7days -F/U as outpatient (8) Diabetes mellitus Status: Chronic Plan: History of T2DM and was on Metformin. Recently has had several episodes of hypoglycemia -Monitor glucose closely (9) History of CVA (cerebrovascular accident) Status: Resolved Plan: -Resume Coumadin -Continue ASA 81mg, statin -BP control with current antihypertensive (10) Labile blood pressure Status: Chronic Plan: BP remains labile. -Monitor closely -Currently on Amlodipine 5mg. -Home dose of Lisinopril on hold secondary to JAMAL -Hydralazine prn BP>160/90 (11) Anemia Status: Chronic Plan: Patient with history of iron deficiency anemia. Baseline Hb~10; Trending down to 8.5. -Continue to monitor -Ferrous sulfate 325mg po daily -Transfuse if Hb<7 (12) Hyperlipidemia Status: Chronic Plan: Continue home dose of Pravachol (13) DEN (obstructive sleep apnea) Status: Acute Plan: CPAP at night (14) Depression with anxiety Status: Acute Plan: Continue home dose of Celexa and Risperidone (15) Nutrition, metabolism, and development symptoms Status: Acute Plan: Diet: Regular diet as tolerated Fluid: LR at 90cc/hr. Discontinue once patient can fully tolerate po Electrolytes: WNL DVT ppx: Coumadin 5mg po daily and Lovenox (Arcelia Venegas MD R3) Problem Qualifiers (1) Fracture of femoral neck, left: Qualified Code: S72.002A - Closed fracture of neck of left femur, initial encounter (2) Fall: Qualified Code: W19.XXXA - Fall, initial encounter (3) Diabetes mellitus: Qualified Code: E11.9 - Type 2 diabetes mellitus without complication, without long-term current use of insulin Arcelia Venegas MD R3 Sep 09, 2016 09:17 Mandy Riggs MD Sep 13, 2016 09:11
[2016-09-09] MEDS: CHOLECALCIFEROL (VIT D3) 5000 UNIT CAP PO SCH (10:34)
[2016-09-09] MEDS: amLODIPine BESYLATE 5 MG TAB PO SCH (10:34)
[2016-09-09] MEDS: CITALOPRAM HYDROBROMIDE 40 MG TAB PO SCH (10:35)
[2016-09-09] MEDS: risperiDONE 1 MG TAB PO SCH (10:36)
[2016-09-09] MEDS: HYDROCORTISONE 10 MG TAB PO SCH ×2 (10:36→22:19)
[2016-09-09] MEDS: ASPIRIN EC 81 MG TABEC PO SCH (10:38)
[2016-09-09] MEDS: FLUDROCORTISONE ACETATE 0.1 MG TAB PO SCH (10:38)
[2016-09-09] MEDS: FERROUS SULFATE 325 MG (65 MG ELEMENTAL IRON) TAB PO SCH (10:38)
[2016-09-09] MEDS: POLYETHYLENE GLYCOL 17 GM PKG PO SCH (10:38)
[2016-09-09] MEDS: SODIUM CHLORIDE 0.9% FLUSH 5 ML FLUSH IVF SCH ×2 (10:39→21:00)
[2016-09-09] MEDS: SODIUM CHLORIDE 0.9% FLUSH 5 ML FLUSH FLUSH SCH ×2 (10:39→22:19)
[2016-09-09] MEDS: LACTATED RINGER'S 1000 ML IV SCH (10:40)
[2016-09-09] MEDS: ACETAMINOPHEN/HYDROcodone 325 MG/5 MG TAB PO PRN (10:47)
[2016-09-09] MEDS ORDERED: WARFARIN SOD 5 MG TAB PO SCH (16:00)
[2016-09-09] MEDS: ENOXAPARIN SODIUM 80 MG/0.8 ML SYRINGE SQ SCH (22:19)
[2016-09-09] MEDS: cefTRIAXone INJ 1,000 MG in SODIUM CHLORIDE 0.9% INJ 100 ML IV SCH (22:19)
[2016-09-09] MEDS: PRAVASTATIN SOD 80 MG TAB PO SCH (22:20)
[2016-09-09] MEDS: DOCUSATE SODIUM 100 MG CAP PO SCH (22:20)
[2016-09-10 01:30] VITALS: BP 180/105; PULSE 87; RESP 18; TEMP 96; O2SAT 100
[2016-09-10] MEDS: cloNIDine HCL 0.1 MG TAB PO PRN (01:44)
[2016-09-10 03:02] VITALS: BP 146/85
[2016-09-10 04:00] VITALS: BP 146/80; PULSE 75; RESP 18; TEMP 96.6; O2SAT 98
[2016-09-10] MEDS ORDERED: WHEEMIS3 (06:34)
[2016-09-10] MEDS ORDERED: WALKER/ADULT/FO1 MIS (06:34)
--- NOTE | 2016-09-10 06:36 | PD.ORT.PN ---
Subjective Subjective Remarks Resting comfortably. Pain controlled Objective Vitals Vital Signs Date Time Temp Pulse Resp B/P Pulse Ox O2 Delivery O2 Flow Rate FiO2 09/10/16 03:02 146/85 09/10/16 01:30 96.0 87 18 180/105 100 09/09/16 20:00 97.7 85 18 146/87 92 09/09/16 19:30 Room Air 09/09/16 16:08 99.4 83 18 149/96 95 09/09/16 16:00 98.3 82 18 171/83 96 09/09/16 12:00 Room Air 09/09/16 12:00 98.3 90 18 108/72 94 09/09/16 11:46 97 Nasal Cannula 21 09/09/16 08:00 97.6 81 18 179/94 97 I/O 09/09/16 09/09/16 09/09/16 09/10/16 09/10/16 09/10/16 07:00 15:00 23:00 07:00 15:00 23:00 Intake Total 1076 ml 720 ml Output Total 1050 ml Balance 26 ml 720 ml Intake Oral 550 ml 720 ml IV Total 526 ml Output Urine Total 1050 ml # Voids 2 # Bowel Movements 0 1 Result Diagram: 09/09/16 0421 09/09/16 0421 Imaging Last 24 hours Impressions Abdomen Ultrasound 09/07/16 1210 Signed Impressions: Service Date/Time: Wednesday, September 07, 2016 19:40 - CONCLUSION: 1. The liver and spleen are upper limits of normal for size. 2. Areas of increased echogenicity with the liver which may represent areas of fatty deposition. 3. Status post cholecystectomy. Bal Bianchi MD Objective Remarks LLE: Clean dry dressings intact. Intact sensation distally with strong dorsiflexion plantar flexion of foot Assessment & Plan Assessment and Plan 1) Left impacted femoral neck fx POD 2 percutaneous pinning of hip Physical therapy for toe-touch weightbearing left lower extremity, no active leglifts Resume Coumadin, with bridging Lovenox - managed by medical Case management for rehabilitation placement - orthopedic cleared Incentive spirometry Follow-up with Dr. Tripp or PA in 2 weeks NEGRO GALINDO PA-C Sep 10, 2016 06:36
[2016-09-10 08:00] VITALS: BP 152/92; PULSE 71; RESP 16; TEMP 96.7; O2SAT 95
[2016-09-10] MEDS: SODIUM CHLORIDE 0.9% FLUSH 5 ML FLUSH FLUSH SCH (08:49)
[2016-09-10] MEDS: SODIUM CHLORIDE 0.9% FLUSH 5 ML FLUSH IVF SCH (08:50)
[2016-09-10] MEDS: FLUDROCORTISONE ACETATE 0.1 MG TAB PO SCH (08:50)
[2016-09-10] MEDS: FERROUS SULFATE 325 MG (65 MG ELEMENTAL IRON) TAB PO SCH (08:50)
[2016-09-10] MEDS: POLYETHYLENE GLYCOL 17 GM PKG PO SCH (08:50)
[2016-09-10] MEDS: DOCUSATE SODIUM 100 MG CAP PO SCH (08:51)
[2016-09-10] MEDS: ASPIRIN EC 81 MG TABEC PO SCH (08:51)
[2016-09-10] MEDS: risperiDONE 1 MG TAB PO SCH (08:51)
[2016-09-10] MEDS: amLODIPine BESYLATE 5 MG TAB PO SCH (08:52)
[2016-09-10] MEDS: CHOLECALCIFEROL (VIT D3) 5000 UNIT CAP PO SCH (08:53)
[2016-09-10] MEDS: CITALOPRAM HYDROBROMIDE 40 MG TAB PO SCH (08:53)
[2016-09-10] MEDS: ENOXAPARIN SODIUM 80 MG/0.8 ML SYRINGE SQ SCH (08:56)
[2016-09-10] MEDS ORDERED: HYDROCORTISONE 10 MG TAB PO SCH (09:00)
[2016-09-10] MEDS ORDERED: DRIS50002 PO (09:13)
[2016-09-10] MEDS ORDERED: WARF-23 PO (09:13)
[2016-09-10] MEDS ORDERED: AMLO5 PO (09:13)
[2016-09-10] MEDS ORDERED: FLUD.1 PO (09:13)
[2016-09-10] MEDS ORDERED: ENOX80P SQ (09:13)
[2016-09-10] MEDS ORDERED: SENN1TAB PO (09:13)
[2016-09-10] MEDS ORDERED: MACR100C2 PO (09:14)
--- NOTE | 2016-09-10 09:20 | HHI.DCPOC ---
Discharge Care Plan Diagnosis: (1) HTN (hypertension) (2) rule out adrenal insufficiency (3) JAMAL (acute kidney injury) (4) Fracture of femoral neck, left Goals to Promote Your Health * To prevent worsening of your condition and complications * To maintain your health at the optimal level Directions to Meet Your Goals Take your medications as prescribed Follow your dietary instruction Follow activity as directed Keep your appointments as scheduled Take your immunizations and boosters as scheduled If your symptoms worsen call your PCP, if no PCP go to Urgent Care Center or Emergency Room Smoking is Dangerous to Your Health. Avoid second hand smoke Call the 24-hour hour crisis hotline for domestic abuse at Arcelia Venegas MD R3 Sep 10, 2016 09:20
--- NOTE | 2016-09-10 09:21 | HHI.FPPN ---
Subjective Remarks POD #2 s/p pinning of left hip. Patient seen and examined. No acute events overnight. BP labile, ranging from 140-180/80-105 overnight. Other vital signs stable. Patient denies any complaints this morning. States that her pain is controlled. Denies chest pain, shortness of breath, dizziness, nausea, vomiting, abdominal pain, or changes in bowel habits. Had normal BM yesterday. Per conversation with her and her , they feel comfortable with her going to SNF given ortho and medical clearance. He just wants to make sure she does not leave until he comes back to the hospital around 2PM. (Arcelia Venegas MD R3) Objective Vitals Vital Signs Date Time Temp Pulse Resp B/P Pulse Ox O2 Delivery O2 Flow Rate FiO2 09/10/16 08:00 96.7 71 16 152/92 95 09/10/16 04:00 96.6 75 18 146/80 98 09/10/16 03:02 146/85 09/10/16 01:30 96.0 87 18 180/105 100 09/09/16 20:00 97.7 85 18 146/87 92 09/09/16 19:30 Room Air 09/09/16 16:08 99.4 83 18 149/96 95 09/09/16 16:00 98.3 82 18 171/83 96 09/09/16 12:00 Room Air 09/09/16 12:00 98.3 90 18 108/72 94 09/09/16 11:46 97 Nasal Cannula 21 I/O 09/09/16 09/09/16 09/09/16 09/10/16 09/10/16 09/10/16 07:00 15:00 23:00 07:00 15:00 23:00 Intake Total 1076 ml 720 ml 240 ml 240 ml Output Total 1050 ml Balance 26 ml 720 ml 240 ml 240 ml Intake Oral 550 ml 720 ml 240 ml 240 ml IV Total 526 ml Output Urine Total 1050 ml # Voids 2 2 2 # Bowel Movements 0 1 0 0 (Arcelia Venegas MD R3) Result Diagram: 09/09/16 0421 09/09/16 0421 Imaging Hip X-Ray 09/08/16 0000 Signed Impressions: Service Date/Time: Thursday, September 08, 2016 11:53 - CONCLUSION: Fluoroscopic images during placement of 3 pins in the left hip. Ti Wheeler MD Abdomen Ultrasound 09/07/16 1210 Signed Impressions: Service Date/Time: Wednesday, September 07, 2016 19:40 - CONCLUSION: 1. The liver and spleen are upper limits of normal for size. 2. Areas of increased echogenicity with the liver which may represent areas of fatty deposition. 3. Status post cholecystectomy. Bal Bianchi MD Chest X-Ray 09/07/16 0000 Signed Impressions: Service Date/Time: Wednesday, September 07, 2016 12:00 - CONCLUSION: No acute disease. Shan Cardenas MD Hip and Pelvis X-Ray 09/06/16 0000 Signed Impressions: Service Date/Time: Tuesday, September 06, 2016 19:51 - CONCLUSION: Compressed proximal left femoral neck fracture at the junction of the femoral head and neck. Bal Bianchi MD Head CT 09/06/16 0000 Signed Impressions: Service Date/Time: Tuesday, September 06, 2016 19:41 - CONCLUSION: 1. Areas of encephalomalacia in the left frontal lobe and left basal ganglia. 2. Old lacunar infarct at the right thalamus. 3. Mild atrophy. 4. Suspected incidental 1 cm calcified meningioma at the right superior frontal parietal region which was present previously and does not appear to cause an significant mass effect. Bal Bianchi MD Femur X-Ray 09/06/16 0000 Signed Impressions: Service Date/Time: Tuesday, September 06, 2016 19:51 - CONCLUSION: Proximal left femoral neck fracture. Bal Bianchi MD Objective Remarks GENERAL: WNWD female in NAD. Awake and alert. Appears older than stated age. SKIN: Warm and dry. Mild pallor HEAD: Normocephalic. Atraumatic EYES: No scleral icterus. No injection or drainage. ENT: OP clear NECK: Supple, trachea midline. CARDIOVASCULAR: Regular rate and rhythm without audible murmurs, gallops, or rubs. RESPIRATORY: Breath sounds equal and clear to auscultation bilaterally. No accessory muscle use. GASTROINTESTINAL: Abdomen soft, non-tender, nondistended. Active bowel sounds. MUSCULOSKELETAL: No cyanosis, or edema. No calf tenderness. FROM in both feet. Sensation intact in bilateral LE. Dressing c/d/i NEURO/PSYCH: Awake, alert. Answers questions and follow commands appropriately. (Arcelia Venegas MD R3) A/P Assessment and Plan 55-year-old female with past medical history of hypertension, diabetes, hyperlipidemia admitted for left femoral neck fracture, UTI, and supratherapeutic INR. She is POD #2 and doing well clinically. d/w Dr. Riggs Discharge Planning Discharge to SNF ([facility]) today given ortho clearance and clinical improvement. (Arcelia Venegas MD R3) Attending Attestation Patient seen and examined. Case reviewed and discussed Agree with plan of care as discussed with me and documented in the resident note. (Mandy Riggs MD) Problem List: (1) Fracture of femoral neck, left Status: Acute Plan: Postop day #2 status post percutaneous pinning of left hip -Orthopedics consulted: * Continue PT at rehab ([facility]) * Toe weightbearing of left lower extremity. No active leg limits. * Continue Coumadin 5mg po with Lovenox bridging. Monitor PT/INR * F/U with Dr. [place] in 2 weeks -Pain control: * [place] 5mg po Q4hrs prn pain * [place] 10mg po Q4h prn severe pain * Morphine 2mg Q3hrs prn breakthrough pain (2) Fall Status: Acute Plan: Likely etiology mechanical, but easily could be supratherapeutic gabapentin, opioid use, dehydration, UTI, hypotension, hypoglycemia. Head CT unchanged from previous scans. -Treat fracture as above -Treat UTI as below -Continue PT (3) UTI (lower urinary tract infection) Status: Acute Plan: Cath UA significant for pyuria and leuk esterase. Lactic acid 0.7. No leukocytosis. VSSAF. Ucx: Enterococcus faecalis. Blood cx negative. -Transition to Macrobid 100mg po BID to complete 7-day course of antibiotics. History: Rocephin 1 g daily IV (09/06-09/10) (4) JAMAL (acute kidney injury) Status: Resolved Plan: Creatinine 2.32 on admission JAMAL resolved s/p IVFs. -Continue IVFs -Treat UTI per above -Monitor renal function. Repeat labs as outpatient -Hold ACEI -Avoid nephrotoxic agents (5) rule out adrenal insufficiency Status: Resolved Plan: Patient with history of hypoglycemia, hypotension, AMS, weight loss. Cortisol level has been low on previous admission. There has been question of poss. adrenal insufficiency in the past. She was started on Florinef and Hydrocortisone during previous hospitalization. BG and BP remain stable. -Continue Florinef 0.1 mg daily. Discontinue Hydrocortisone. -Accucheck -C-peptide and insulin levels pending -Will need further workup with outpatient endocrinology. F/U with PCP. Imaging: Ab u/s: Area of increased echogenicity in the liver that may represent areas of fatty deposit. Liver and spleen are upper limits of normal for size. Pancreas is not well-visualized. (6) Subtherapeutic international normalized ratio (INR) Status: Resolved Plan: Patient on Coumadin for history of prior strokes, INR on admission 6.4 but now subtherapeutic s/p Vitamin K po and IV as well as 2 units of FFP. Pt is post-op and Coumadin has been resumed given history and high risk -Continue Coumadin 5mg po daily and bridge with Lovenox until therapeutic -Monitor coag profile. PT/INR pending this morning (7) Vitamin D deficiency Status: Acute Plan: Vitamin D 5.5 -Vitamin D2 50,000 units Q7days -F/U as outpatient (8) Diabetes mellitus Status: Chronic Plan: History of T2DM and was on Metformin. Recently has had several episodes of hypoglycemia -Monitor glucose closely (9) History of CVA (cerebrovascular accident) Status: Resolved Plan: -Continue Coumadin/Lovenox bridge. Discontinue Lovenox once Coumadin is therapeutic (goal INR 2-3) -Continue ASA 81mg, statin -BP control with current antihypertensive (10) Labile blood pressure Status: Chronic Plan: BP remains labile. -Monitor closely -Currently on Amlodipine 5mg. -Home dose of Lisinopril on hold secondary to JAMAL -Hydralazine prn BP>160/90 (11) Anemia Status: Chronic Plan: Patient with history of iron deficiency anemia. Baseline Hb~10; Trending down to 8.5. -Continue to monitor. Repeat CBC as outpatient -Ferrous sulfate 325mg po daily -Transfuse if Hb<7 (12) Hyperlipidemia Status: Chronic Plan: Continue home dose of Pravachol (13) DEN (obstructive sleep apnea) Status: Acute Plan: CPAP at night (14) Depression with anxiety Status: Acute Plan: Continue home dose of Celexa and Risperidone (15) Candidal dermatitis Status: Acute Plan: -Nystatin cream -Keep area clean and dry (16) Nutrition, metabolism, and development symptoms Status: Acute Plan: Diet: Regular diet as tolerated Fluid: HLIV. Encourage oral fluid hydration Electrolytes: WNL DVT ppx: Coumadin 5mg po daily and Lovenox (Arcelia Venegas MD R3) Problem Qualifiers (1) Fracture of femoral neck, left: Qualified Code: S72.002A - Closed fracture of neck of left femur, initial encounter (2) Fall: Qualified Code: W19.XXXA - Fall, initial encounter (3) Diabetes mellitus: Qualified Code: E11.9 - Type 2 diabetes mellitus without complication, without long-term current use of insulin Arcelia Venegas MD R3 Sep 10, 2016 09:21 Mandy Riggs MD Sep 10, 2016 13:44
[2016-09-10] MEDS: LACTATED RINGER'S 1000 ML IV SCH (10:45)
[2016-09-10] MEDS ORDERED: NYSTATIN 100,000 U/GM OINT 15 GM TUBE TOPICAL SCH (11:00)
--- NOTE | 2016-09-10 14:41 | HHI.DS ---
Discharge Summary Admission Date Sep 06, 2016 at 21:39 Discharge Date: Sep 10, 2016 Admitting Diagnosis left hip femoral fracture, elevated INR, fall (1) Fracture of femoral neck, left Diagnosis: Principal Plan: Postop day #2 status post percutaneous pinning of left hip -Orthopedics consulted: * Continue PT at rehab () * Toe weightbearing of left lower extremity. No active leg limits. * Continue Coumadin 5mg po with Lovenox bridging. Monitor PT/INR * F/U with Dr. Washington in 2 weeks -Pain control: * [place] 5mg po Q4hrs prn pain * [place] 10mg po Q4h prn severe pain * Morphine 2mg Q3hrs prn breakthrough pain (2) Fall Diagnosis: Principal Plan: Likely etiology mechanical, but easily could be supratherapeutic gabapentin, opioid use, dehydration, UTI, hypotension, hypoglycemia. Head CT unchanged from previous scans. -Treat fracture as above -Treat UTI as below -Continue PT (3) UTI (lower urinary tract infection) Diagnosis: Principal Plan: Cath UA significant for pyuria and leuk esterase. Lactic acid 0.7. No leukocytosis. VSSAF. Ucx: Enterococcus faecalis. Blood cx negative. -Transition to Macrobid 100mg po BID to complete 7-day course of antibiotics. History: Rocephin 1 g daily IV (09/06-09/10) (4) JAMAL (acute kidney injury) Diagnosis: Principal Plan: Creatinine 2.32 on admission JAMAL resolved s/p IVFs. -Continue IVFs -Treat UTI per above -Monitor renal function. Repeat labs as outpatient -Hold ACEI -Avoid nephrotoxic agents (5) rule out adrenal insufficiency Plan: Patient with history of hypoglycemia, hypotension, AMS, weight loss. Cortisol level has been low on previous admission. There has been question of poss. adrenal insufficiency in the past. She was started on Florinef and Hydrocortisone during previous hospitalization. BG and BP remain stable. -Continue Florinef 0.1 mg daily. Discontinue Hydrocortisone. -Accucheck -C-peptide and insulin levels pending -Will need further workup with outpatient endocrinology. F/U with PCP. Imaging: Ab u/s: Area of increased echogenicity in the liver that may represent areas of fatty deposit. Liver and spleen are upper limits of normal for size. Pancreas is not well-visualized. (6) Subtherapeutic international normalized ratio (INR) Plan: Patient on Coumadin for history of prior strokes, INR on admission 6.4 but now subtherapeutic s/p Vitamin K po and IV as well as 2 units of FFP. Pt is post-op and Coumadin has been resumed given history and high risk -Continue Coumadin 5mg po daily and bridge with Lovenox until therapeutic -Monitor coag profile. PT/INR pending this morning (7) Vitamin D deficiency Plan: Vitamin D 5.5 -Vitamin D2 50,000 units Q7days -F/U as outpatient (8) Diabetes mellitus Plan: History of T2DM and was on Metformin. Recently has had several episodes of hypoglycemia -Monitor glucose closely (9) History of CVA (cerebrovascular accident) Plan: -Continue Coumadin/Lovenox bridge. Discontinue Lovenox once Coumadin is therapeutic (goal INR 2-3) -Continue ASA 81mg, statin -BP control with current antihypertensive (10) Labile blood pressure Plan: BP remains labile. -Monitor closely -Currently on Amlodipine 5mg. -Home dose of Lisinopril on hold secondary to JAMAL -Hydralazine prn BP>160/90 (11) Anemia Plan: Patient with history of iron deficiency anemia. Baseline Hb~10; Trending down to 8.5. -Continue to monitor. Repeat CBC as outpatient -Ferrous sulfate 325mg po daily -Transfuse if Hb<7 (12) Hyperlipidemia Plan: Continue home dose of Pravachol (13) DEN (obstructive sleep apnea) Plan: CPAP at night (14) Depression with anxiety Plan: Continue home dose of Celexa and Risperidone (15) Candidal dermatitis Plan: -Nystatin cream -Keep area clean and dry (16) Nutrition, metabolism, and development symptoms Plan: Diet: Regular diet as tolerated Fluid: HLIV. Encourage oral fluid hydration Electrolytes: WNL DVT ppx: Coumadin 5mg po daily and Lovenox [facility] Ortho: Dr. Washington Brief History 55-year-old female with past medical history of hypertension, diabetes, hyperlipidemia, multiple CVAs presenting after a mechanical fall occurring on Tuesday. Additional history is obtained from patient's who is at bedside. According to , she had fallen on Tuesday after slipping on surface of the tile floor. She has a history of several such falls in the past, and usually they do not result in any issues. However, after this fall has been noted that she had been having some increased pain with bearing weight which was relieved with laying down. Also not associated with any prodromal symptoms including lightheadedness, dizziness, visual disturbances, although patient does have poor balance related to prior strokes. Review of systems otherwise negative. There've been no changes to her medications recently since her last visit. Of note, she was recently discharged from the hospital after a bout of pneumonia during which time a diagnosis of adrenal insufficiency was suspected and the patient was started on oral steroids. She has been taking all her medications as prescribed. CBC/BMP: 09/09/16 0421 09/09/16 0421 Significant Findings Laboratory Tests Test 09/07/16 09/07/16 09/08/16 09/08/16 16:24 23:00 14:46 14:50 Prothrombin Time 18.5 SEC 15.6 SEC (9.8-11.6) (9.8-11.6) Estimat Glomerular Filtration 59 ML/MIN (>89) Rate Random Glucose 162 MG/DL (74-106) Calcium Level 7.7 MG/DL (8.5-10.1) 25-Hydroxy Vitamin D Total 5.1 ng/ML (30-100) Red Blood Count 3.07 MIL/MM3 (4.00-5.30) Hemoglobin 8.7 GM/DL (11.6-15.3) Hematocrit 26.2 % (35.0-46.0) Neutrophils (%) (Auto) 89.5 % (16.0-70.0) Lymphocytes (%) (Auto) 7.7 % (9.0-44.0) Lymphocytes # (Auto) 0.6 TH/MM3 (1.0-4.8) Test 09/09/16 04:21 Red Blood Count 2.98 MIL/MM3 (4.00-5.30) Hemoglobin 8.5 GM/DL (11.6-15.3) Hematocrit 25.1 % (35.0-46.0) Neutrophils (%) (Auto) 81.3 % (16.0-70.0) Lymphocytes # (Auto) 0.8 TH/MM3 (1.0-4.8) Prothrombin Time 12.7 SEC (9.8-11.6) Creatinine 1.09 MG/DL (0.50-1.00) Estimat Glomerular Filtration 52 ML/MIN (>89) Rate Random Glucose 168 MG/DL (74-106) Calcium Level 7.5 MG/DL (8.5-10.1) PE at Discharge GENERAL: WNWD female in NAD. Awake and alert. Appears older than stated age. SKIN: Warm and dry. Mild pallor HEAD: Normocephalic. Atraumatic EYES: No scleral icterus. No injection or drainage. ENT: OP clear NECK: Supple, trachea midline. CARDIOVASCULAR: Regular rate and rhythm without audible murmurs, gallops, or rubs. RESPIRATORY: Breath sounds equal and clear to auscultation bilaterally. No accessory muscle use. GASTROINTESTINAL: Abdomen soft, non-tender, nondistended. Active bowel sounds. MUSCULOSKELETAL: No cyanosis, or edema. No calf tenderness. FROM in both feet. Sensation intact in bilateral LE. Dressing c/d/i NEURO/PSYCH: Awake, alert. Answers questions and follow commands appropriately. Hospital Course Ms. Velasquez is a 55 year old female who was admitted on September 06, 2015 for left femoral neck fracture status post mechanical fall. Also found to have supratherapeutic INR (6.3), which resolved with Vitamin K and 2 units of FFP. She underwent surgical pinning of left hip on 09/08. Patient tolerated procedure well. Coumadin was resumed but will need bridging with Lovenox until INR is therapeutic (goal 2-3). During hospitalization, she was also found to have Enteroccocus faecalis UTI. She received Rocephin while inpatient and transitioned to Macrobid upon discharge to complete 7-days of antibiotics. On , patient is deemed stable for discharge to SNF. She will need outpatient labs, CBC, PT/INR, and BMP within one week. Follow up with Dr. Washington in [address] Afsaneh Quick within one week. In addition, she will need outpatient referral for endocrinology for further workup of suspected adrenal insufficiency. Pt Condition on Discharge: Stable Discharge Disposition: Discharge to SNF Discharge Instructions DIET: Follow Instructions for: Coumadin (Warfarin) Diet Activities you can perform: Toe Touch Weight Bearing Follow up Referrals: Orthopedics - 2 Weeks @ [facility] with Gilbert Washington MD Physician - 1 Week with Shan Quick MD R2 New Orders: BASIC METABOLIC PROF - 2-3 Days CBC NO DIFF - 2-3 Days PT/INR - 2-3 Days New Medications: Hydrocodone-Acetaminophen ([place]) 5-325 mg Tab 1 TAB PO Q4H PRN PAIN #60 Ref 0 TAB Nitrofurantoin Monohydrate Macrocrystals (Macrobid) 100 Mg Cap 100 MG PO BID Infection #6 Ref 0 CAP Walker/Adult/Folding (Walker/Adult/Folding) 1 Mis Mis 1 EA .ROUTE DIRECTED #1 Ref 0 EA Wheelchair Elevated Leg (Wheelchair Elevated Leg) 1 Mis Mis 1 EA .ROUTE DIRECTED #1 Ref 0 EA Amlodipine (Norvasc) 5 Mg Tab 5 MG PO DAILY #30 TAB Enoxaparin Inj (Lovenox Inj) 80 mg/0.8 ML Syr 80 MG SQ Q12H Days 7 INJECTION Ergocalciferol (Drisdol) 50,000 Unit Cap 79087 UNITS PO Q7D #6 CAP Sennosides-Docusate Sodium (Senna Plus 8.6-50 mg) 1 Tab Tab 2 TAB PO BID PRN CONSTIPATION #60 TAB Continued Medications: Aspirin (Aspirin) 81 Mg Tabdr 81 MG PO DAILY #90 TAB Citalopram (Citalopram) 40 Mg Tab 40 MG PO DAILY hold this medication until course of antibiotics has been completed Control Depression #90 Ref 0 TAB Ferrous Sulfate (Iron) 325 Mg Tab 325 MG PO DAILY Take Nutritional Supplement #30 Ref 0 TAB Fludrocortisone (Fludrocortisone) 0.1 Mg Tab 0.1 MG PO DAILY #30 Ref 0 TAB (This prescription has been renewed) Gabapentin (Gabapentin) 800 Mg Tab 800 MG PO TID #270 Ref 0 TAB Levothyroxine (Synthroid) 25 Mcg Tab 25 MCG PO DAILY Thyroid #30 Ref 0 TAB Lisinopril (Lisinopril) 40 Mg Tab 40 MG PO DAILY Blood Pressure Management #30 Ref 0 TAB Metformin (Metformin) 1,000 Mg Tab 1000 MG PO BIDPC With meals Blood Sugar Management #60 Ref 0 TAB Risperidone (Risperdal) 2 Mg Tab 2 MG PO DAILY #30 Ref 0 TAB Simvastatin (Simvastatin) 40 Mg Tab 40 MG PO HS Cholesterol Management #90 Ref 0 TAB Warfarin (Warfarin) 5 Mg Tab 5 MG PO DAILY Blood Clot Prevention #30 Ref 0 TAB (This prescription has been renewed) Discontinued Medications: Hydrocodone-Acetaminophen (Lortab) 10-325 Mg Tab 1 TAB PO Q4H PRN PAIN #120 Ref 0 TAB Tramadol (Tramadol) 50 Mg Tab 50 MG PO Q8H PRN PAIN #120 Ref 0 TAB Arcelia Venegas MD R3 Sep 10, 2016 14:41
[2016-09-15] MEDS ORDERED: HYDR-2374 PO (15:30)
[2016-09-15] MEDS ORDERED: TRAM50TA PO (15:30)
[2016-09-20] MEDS ORDERED: HYDR-3583 PO ×2 (15:15→15:17)
[2016-10-13] MEDS ORDERED: LISI40TA PO (09:31)
[2016-10-13] MEDS ORDERED: METF1000 PO (09:31)
[2016-10-13] MEDS ORDERED: SIMV40TA PO (09:31)
[2016-10-13] MEDS ORDERED: SYNT25TA PO (09:32)
[2016-10-13] MEDS ORDERED: FLUD.1 PO (09:32)
[2016-10-14] MEDS ORDERED: LEVO100T5 PO (14:32)
[2016-10-19] MEDS ORDERED: HYDR-3583 PO (13:51)
[2016-10-20] MEDS ORDERED: TRAM50TA PO (13:38)
[2016-11-18] MEDS ORDERED: COUM3TAB PO (12:26)
[2016-12-23] MEDS ORDERED: HYDR-3583 PO (09:38)
[2016-12-23] MEDS ORDERED: TRAM50TA PO (09:38)
[2016-12-24] MEDS ORDERED: WARF-20 PO (10:36)
[2016-12-29] MEDS ORDERED: LEVO88TA2 PO (19:31)
[2017-01-18] MEDS ORDERED: COUM4TAB PO (17:55)
== END 2016-09-10 11:52 | DRG 481 ==
LOC: NEPE 15:47 → NEDA 21:39 → NEDH 09-07 01:43 → N06B 09-07 16:40
PROVIDERS: ADMIT Family Medicine; ATTEND Family Medicine
PROC: 30233K1 Transfusion of Nonautologous Frozen Plasma into Peripheral Vein, Percutaneous Approach (ICD-10-PCS; 2016-09-07)
PROC: 0QS734Z Reposition Left Upper Femur with Internal Fixation Device, Percutaneous Approach (ICD-10-PCS; principal; 2016-09-08 11:11)
DX: S72.142A Displaced intertrochanteric fracture of left femur, initial encounter for closed fracture (principal); N39.0 Urinary tract infection, site not specified; N17.9 Acute kidney failure, unspecified; E11.22 Type 2 diabetes mellitus with diabetic chronic kidney disease; E11.649 Type 2 diabetes mellitus with hypoglycemia without coma; E27.40 Unspecified adrenocortical insufficiency; I69.351 Hemiplegia and hemiparesis following cerebral infarction affecting right dominant side; I12.9 Hypertensive chronic kidney disease with stage 1 through stage 4 chronic kidney disease, or unspecified chronic kidney disease; N18.9 Chronic kidney disease, unspecified; E78.00 Pure hypercholesterolemia, unspecified; E03.9 Hypothyroidism, unspecified; Y92.019 Unspecified place in single-family (private) house as the place of occurrence of the external cause; E55.9 Vitamin D deficiency, unspecified; D50.9 Iron deficiency anemia, unspecified; E86.0 Dehydration; E78.5 Hyperlipidemia, unspecified; Z79.01 Long term (current) use of anticoagulants; G47.33 Obstructive sleep apnea (adult) (pediatric); L30.9 Dermatitis, unspecified; R79.1 Abnormal coagulation profile; Z79.84 Long term (current) use of oral hypoglycemic drugs; F41.8 Other specified anxiety disorders; W01.0XXA Fall on same level from slipping, tripping and stumbling without subsequent striking against object, initial encounter
CPT/HCPCS: 36430; 70450; 71010; 73502; 73552; 76000; 76700; 80048; 81001; 82306; 82550; 82948; 83525; 83605; 84681; 85025; 85610; 85730; 86927; 87040; 87077; 87086; 87186; 93005; C1713; C1769; J0131; J0690; J0696; J1100; J1650; J2250; J2270; J2405; J3010; J3370; J3430; J7030; J7042; J7050; J7120; P9017; P9612

== ENCOUNTER 2016-10-23 10:46 | Observation (INO) | payer OTHER ==
[2016-10-23] VITALS (7 sets, daily range): BP systolic 115–174; BP diastolic 73–98; PULSE 77–81; RESP 16–20; TEMP 98.3–98.4; O2SAT 96–97
[~2016-10-23 10:46] MED LIST changes: +AMLO5 PO; +DRIS50002 PO; +ENOX80P SQ; -HYDR-3535 PO; +HYDR-3583 PO; -HYDRO10 PO; +LEVO100T5 PO; +MACR100C2 PO; +SENN1TAB PO; +WALKER/ADULT/FO1 MIS; +WHEEMIS3; -ZOFR4TAB PO
[2016-10-23] MEDS ORDERED: SODIUM CHLORIDE 0.9% FLUSH 10 ML FLUSH IV FLUSH PRN ×2 (11:30→15:00)
--- NOTE | 2016-10-23 11:47 | PD ---
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 Patient's last INR was 2 days ago and was 2.5. She is denying any abdominal pain. She is denying any rectal bleeding. Patient is also having some right- sided chest pain that started about 24 hours ago after her lifted her up. Patient's states that he felt a pop in her chest after lifting her. Since that time she has been having sharp right-sided chest pain that is worse with movement, palpation, and inspiration. PFSH Past Medical History Hx Anticoagulant Therapy: Yes Arthritis: Yes Asthma: Yes Autoimmune Disease: Yes (LUPUS) Blood Disorders: No Anxiety: Yes Depression: Yes Heart Rhythm Problems: No Cancer: No Cardiovascular Problems: Yes High Cholesterol: Yes Chest Pain: No Congestive Heart Failure: No COPD: No Cerebrovascular Accident: Yes (CVA) Diabetes: Yes Diminished Hearing: No Endocrine: Yes (DM II) Gastrointestinal Disorders: Yes Glaucoma: No Genitourinary: No Headaches: Yes Hepatitis: No Hiatal Hernia: Yes Heparin Induced Thrombocytopen: No Hypertension: Yes Immune Disorder: Yes (LUPUS) Implanted Vascular Access Dvce: No Kidney Stones: No Musculoskeletal: Yes Neurologic: Yes (CVA November 2012) Psychiatric: Yes Reproductive: Yes (ovary removed) Respiratory: Yes (SLEEP APNEA) Immunizations Current: Yes Migraines: No Myocardial Infarction: No Renal Failure: No Seizures: No Sickle Cell Disease: No Sleep Apnea: Yes Thyroid Disease: Yes (hypothyroidism) Ulcer: No Tetanus Vaccination: < 5 Years Influenza Vaccination: No ?: Not Menopausal: Yes : 3 Para: 3 Ovarian Cysts: Yes (R) Tubal Ligation: Yes (R ) Past Surgical History Abdominal Surgery: Yes (cholycystectomy) Appendectomy: No Cardiac Surgery: No Cholecystectomy: Yes Ear Surgery: No Endocrine Surgery: No Eye Surgery: No Genitourinary Surgery: No Gynecologic Surgery: Yes Neurologic Surgery: No Oral Surgery: No Thoracic Surgery: No Other Surgery: Yes (GALL BLADDER AND OVARY OUT (15 years ago)) Social History Alcohol Use: No Tobacco Use: No Substance Use: No Allergies-Medications (Allergen,Severity, Reaction): Coded Allergies: Penicillin (Verified Allergy, Severe, Rash, 10/23/16) Reported Meds & Prescriptions Reported Meds & Active Scripts Active Tramadol (Tramadol HCl) 50 Mg Tab 50 Mg PO Q6H PRN Hydrocodone-Acetaminophen 10-325 mg Tab 1 Tab PO Q6H PRN Levothyroxine (Levothyroxine Sodium) 100 Mcg Tab 100 Mcg PO DAILY Fludrocortisone (Fludrocortisone Acetate) 0.1 Mg Tab 0.1 Mg PO DAILY Lisinopril 40 Mg Tab 40 Mg PO DAILY Metformin (Metformin HCl) 1,000 Mg Tab 1,000 Mg PO BIDPC With meals Simvastatin 40 Mg Tab 40 Mg PO HS Macrobid (Nitrofurantoin Monoh/Nitrofur Macro) 100 Mg Cap 100 Mg PO BID Senna Plus 8.6-50 mg (Sennosides-Docusate Sodium) 1 Tab Tab 2 Tab PO BID PRN Drisdol (Ergocalciferol) 50,000 Unit Cap 50,000 Units PO Q7D Lovenox Inj (Enoxaparin Sodium) 80 mg/0.8 ML Syr 80 Mg SQ Q12H 7 Days Norvasc (Amlodipine Besylate) 5 Mg Tab 5 Mg PO DAILY Warfarin 5 Mg Tab 5 Mg PO DAILY Wheelchair Elevated Leg (Device) 1 Mis Mis 1 Ea .ROUTE DIRECTED Walker/Adult/Folding (Device) 1 Mis Mis 1 Ea .ROUTE DIRECTED Iron (Ferrous Sulfate) 325 Mg Tab 325 Mg PO DAILY Take Citalopram (Citalopram Hydrobromide) 40 Mg Tab 40 Mg PO DAILY hold this medication until course of antibiotics has been completed Gabapentin 800 Mg Tab 800 Mg PO TID Aspirin 81 Mg Tabdr 81 Mg PO DAILY Reported Risperdal (Risperidone) 2 Mg Tab 2 Mg PO DAILY Review of Systems Except as stated in HPI: all other systems reviewed are Neg Physical Exam Narrative GENERAL: Well-developed, well-nourished, awake, alert, no acute distress. SKIN: Warm and dry. HEAD: Atraumatic. Normocephalic. EYES: Pupils equal and round. No scleral icterus. No injection or drainage. ENT: Mucous membranes pink and moist. NECK: Trachea midline. No JVD. CARDIOVASCULAR: Regular rate and rhythm. No murmur appreciated. RESPIRATORY: No accessory muscle use. Clear to auscultation. Breath sounds equal bilaterally. GASTROINTESTINAL: Abdomen soft, non-tender, nondistended. MARITIME OFFICER: Exam performed in the presence of a female nurse. Normal external genitalia. Moderate amount of blood in vaginal vault coming from cervical os. No vaginal lacerations. MUSCULOSKELETAL: No obvious deformities. No clubbing. No cyanosis. No edema. Mild right lateral chest wall tenderness without step-off, without crepitus, without paradoxical chest wall movement. NEUROLOGICAL: Awake and alert. No obvious cranial nerve deficits. Normal speech. PSYCHIATRIC: Appropriate mood and affect; insight and judgment normal. Data Data Last Documented VS Vital Signs Date Time Temp Pulse Resp B/P Pulse Ox O2 Delivery O2 Flow Rate FiO2 10/23/16 13:16 77 16 158/87 97 10/23/16 11:29 98.4 Orders Complete Blood Count With Diff (10/23/16 11:16) Comprehensive Metabolic Panel (10/23/16 11:16) Prothrombin Time / Inr (Pt) (10/23/16 11:16) Act Partial Throm Time (Ptt) (10/23/16 11:16) Iv Access Insert/Monitor (10/23/16 11:16) Ecg Monitoring (10/23/16 11:16) Oximetry (10/23/16 11:16) Sodium Chloride 0.9% Flush (Ns Flush) (10/23/16 11:30) Electrocardiogram (10/23/16 11:16) Ckmb (Isoenzyme) Profile (10/23/16 11:16) Troponin I (10/23/16 11:16) Chest, Single Ap (10/23/16 11:16) Type And Screen (10/23/16 11:16) Us Pelvis Comp W Dop Transvag (10/23/16 ) CKMB (10/23/16 11:25) CKMB% (10/23/16 11:25) Urinalysis - C+S If Indicated (10/23/16 13:05) Cath For Specimen (10/23/16 13:05) Labs Laboratory Tests Test 10/23/16 11:25 White Blood Count 8.9 TH/MM3 Red Blood Count 3.85 MIL/MM3 Hemoglobin 10.5 GM/DL Hematocrit 32.4 % Mean Corpuscular Volume 84.1 FL Mean Corpuscular Hemoglobin 27.4 PG Mean Corpuscular Hemoglobin 32.5 % Concent Red Cell Distribution Width 15.8 % Platelet Count 224 TH/MM3 Mean Platelet Volume 9.5 FL Neutrophils (%) (Auto) 60.1 % Lymphocytes (%) (Auto) 32.1 % Monocytes (%) (Auto) 6.0 % Eosinophils (%) (Auto) 1.2 % Basophils (%) (Auto) 0.6 % Neutrophils # (Auto) 5.3 TH/MM3 Lymphocytes # (Auto) 2.9 TH/MM3 Monocytes # (Auto) 0.5 TH/MM3 Eosinophils # (Auto) 0.1 TH/MM3 Basophils # (Auto) 0.1 TH/MM3 CBC Comment DIFF FINAL Differential Comment Prothrombin Time 42.2 SEC Prothromb Time International 3.6 RATIO Ratio Activated Partial 39.2 SEC Thromboplast Time Sodium Level 138 MEQ/L Potassium Level 4.1 MEQ/L Chloride Level 103 MEQ/L Carbon Dioxide Level 24.1 MEQ/L Anion Gap 11 MEQ/L Blood Urea Nitrogen 25 MG/DL Creatinine 1.24 MG/DL Estimat Glomerular Filtration 45 ML/MIN Rate Random Glucose 77 MG/DL Calcium Level 9.3 MG/DL Total Bilirubin 0.4 MG/DL Aspartate Amino Transf 21 U/L (AST/SGOT) Alanine Aminotransferase 15 U/L (ALT/SGPT) Alkaline Phosphatase 92 U/L Total Creatine Kinase 123 U/L Creatine Kinase MB 1.2 NG/ML Troponin I LESS THAN 0.02 NG/ML Total Protein 7.5 GM/DL Albumin 3.8 GM/DL Blood Type A POSITIVE Antibody Screen NEGATIVE MDM Medical Decision Making Medical Screen Exam Complete: Yes Emergency Medical Condition: Yes Interpretation(s) EKG: Sinus, rate 82, left axis deviation, normal intervals, no acute ischemic abnormality. Differential Diagnosis Vaginal bleed, coagulopathy, uterine fibroid, uterine cancer, anemia, chest wall contusion, rib fracture, pneumothorax, PE, ACS Narrative Course Vital signs reviewed. CBC shows WBC 8.9, hemoglobin 10.5, hematocrit 32.4, platelets 224. CMP is remarkable for BUN 25, creatinine 1.4, GFR 45, otherwise unremarkable. Cardiac enzymes are negative. INR is 3.6. Chest x-ray: No acute disease. Pelvic ultrasound: Limited exam because of body habitus. No etiology for the bleeding other than fibroids. Further evaluation is suggested. The patient and the patient's were made aware of all findings. She is resting comfortably. I do not believe her chest pain is cardiac in nature. It is most likely musculoskeletal in nature. She does have a moderate amount of blood in her vaginal vault coming from her cervical os. There are no masses on my exam. No vaginal lacerations. Her INR is 3.6. Her vital signs are within normal limits, however given bleeding and coagulopathy, the patient be admitted for overnight observation. Case discussed with medical residents. The patient will be admitted to their service under Dr. Hemphill Diagnosis Primary Impression: Vaginal bleeding Additional Impressions: Elevated INR Uterine fibroid Qualified Code: D25.9 - Uterine leiomyoma, unspecified location Chemo Landon MD Oct 23, 2016 11:46
[2016-10-23 11:49] LABS: AUTOMATED NEUTROPHIL # 5.3 TH/MM3 (1.8-7.7); BASOPHIL # 0.1 TH/MM3 (0-0.2); BASOPHIL % 0.6 % (0.0-2.0); EOSINOPHIL # 0.1 TH/MM3 (0-0.4); EOSINOPHIL % 1.2 % (0.0-4.0); HEMATOCRIT 32.4 % (35.0-46.0); HEMO FLAGS DIFF FINAL; LYMPH % 32.1 % (9.0-44.0); LYMPHOCYTE # 2.9 TH/MM3 (1.0-4.8); MEAN CELL VOLUME 84.1 FL (80.0-100.0); MEAN CORPUSCULAR HEMOGLOBIN 27.4 PG (27.0-34.0); MEAN CORPUSCULAR HGB CONC 32.5 % (32.0-36.0); NEUT % 60.1 % (16.0-70.0); PLATELET COUNT 224 TH/MM3 (150-450); RED BLOOD COUNT 3.85 MIL/MM3 (4.00-5.30); RED CELL DISTRIBUTION WIDTH 15.8 % (11.6-17.2); WHITE BLOOD COUNT 8.9 TH/MM3 (4.0-11.0)
[2016-10-23 12:01] LABS: APTT (PATIENT) 39.2 SEC (24.3-30.1); INTERNATIONAL NORMALIZED RATIO 3.6 RATIO; PROTHROMBIN TIME - PATIENT 42.2 SEC (9.8-11.6)
[2016-10-23 12:34] LABS: ALKALINE PHOSPHATASE 92 U/L (45-117); ALT (GPT) 15 U/L (10-53); ANION GAP 11 MEQ/L (5-15); AST (GOT) 21 U/L (15-37); BICARBONATE 24.1 MEQ/L (21.0-32.0); BLOOD UREA NITROGEN 25 MG/DL (7-18); CHLORIDE 103 MEQ/L (98-107); CREATINE KINASE 123 U/L (26-192); GLOMERULAR FILTRATION RATE 45 ML/MIN (>89); SODIUM (NA) 138 MEQ/L (136-145); TOTAL BILIRUBIN ADULT 0.4 MG/DL (0.2-1.0)
[2016-10-23 12:47] LABS: POTASSIUM 4.1 MEQ/L (3.5-5.1)
--- NOTE | 2016-10-23 12:52 | RADRPT ---
EXAM DATE/TIME: 10/23/2016 12:19 [facility] COMPARISON: CHEST SINGLE AP, September 07, 2016, 12:00. INDICATIONS : Chest pain. MEDICAL HISTORY : None. SURGICAL HISTORY : None. ENCOUNTER: Initial ACUITY: 1 day PAIN SCORE: 6/10 LOCATION: Bilateral chest FINDINGS: A single view of the chest demonstrates the lungs to be symmetrically aerated without evidence of mas s, infiltrate or effusion. The cardiomediastinal contours are unremarkable. Cardiac event the monit or is noted. Osseous structures are intact. CONCLUSION: No acute disease. Rasheed Zhou MD FACR on October 23, 2016 at 12:50 Board Certified Radiologist. This report was verified electronically.
--- NOTE | 2016-10-23 12:52 | RADRPT ---
EXAM DATE/TIME: 10/23/2016 11:37 [facility] COMPARISON: No previous studies available for comparison. INDICATIONS : Pelvic pain. Bleeding. MEDICAL HISTORY : Hypothyroidism. Hypertension. Hypercholesterolemia. CVA. Hyperlipidemia. Diabet es. Liver disease. SURGICAL HISTORY : Cholecystectomy. Right oophorectomy. Tubal ligation. ENCOUNTER: Initial ACUITY: 1 day PAIN SCORE: 0/10 LOCATION: Bilateral pelvis MEASUREMENTS: UTERUS: 5.0 x 4.3 x 4.5 cm ENDOMETRIAL STRIPE: 3 mm RIGHT OVARY: surgically absent cm LEFT OVARY: 3.1 x 2.0 x 1.3 cm FINDINGS: Examination is limited by the patient's body habitus and uterus position. UTERUS: The uterus appears to have multiple fibroids. RIGHT OVARY: Surgically absent. LEFT OVARY: Not seen. MISCELLANEOUS: No free fluid. CONCLUSION: Limited examination because of body habitus. I don't see an etiology for the bleeding other than fib roids. Further evaluation is suggested. Rasheed Zhou MD FACR on October 23, 2016 at 12:48 Board Certified Radiologist. This report was verified electronically.
[2016-10-23 12:59] LABS: CKMB 1.2 NG/ML (0.5-3.6)
[2016-10-23 13:58] LABS: BLOOD, URINE NEG (NEG); GLUCOSE,URINE NEG (NEG); GRANULAR CAST, URINE 1 /lpf; HYALINE CAST, URINE 1 /lpf (RARE); KETONE, URINE 10 mg/dL (NEG); MUCUS URINE FEW /lpf (OCC); NITRITE,URINE NEG (NEG); PH, URINE 5.5 (5.0-8.5); SQUAMOUS EPITHELIAL CELL URINE 1 /hpf (0-5); URINE COLOR YELLOW (YELLW/STRAW)
[2016-10-23 14:04] LABS: COMMENT (UR) CATH-CULT NOT IND; CULTURE IF INDICATED CATH CULTURE NOT IND
[2016-10-23] MEDS ORDERED: NALOXONE HCL 0.4 MG/ML AMP IV PRN (15:00)
[2016-10-23] MEDS ORDERED: ACETAMINOPHEN 325 MG TAB PO PRN (15:00)
--- NOTE | 2016-10-23 15:16 | HHI.HP ---
HPI Service Family Medicine Primary Care Physician Shan Quick MD Admission Diagnosis vaginal bleeding, elevated INR, anemia Diagnoses: International Travel<30 Days: No Contact w/Intl Traveler<30days: No Known Affected Area: No History of Present Illness Ms. Velasquez is a 55 yo F with PMH of recent L femoral fracture s/p percutaneous pinning, recent concern for endocrinopathy/low cortisol, lupus, prior CVA, T2DM, hypothyroidism, arthritis, depression, and restless leg syndrome who presents with 2 days of vaginal bleeding. Patient accompanied by her who provided majority of history. Patient reportedly had a large clot pass from her vagina this morning [I was shown picture of the clot which was ~3x3x3+ in size]; patient states that her last period was years ago. Patient had small quantity of blood in her underwear yesterday as well which was observed when her underwear was changed. (Patient is incontinent at baseline , and rarely feels the urge to urinate prior to urination occurring.) Patient reports mild bleeding present on underwear yesterday followed by significant blood clotting this morning. Prior to the past 2 days, patient has sporadically had vaginal spotting for the past several months but no prior significant bleeding. denies presence of blood in stool or urine. Patient takes Warfarin chronically [(per for PMH of CVA; I did not find history of arrhythmia in EMR)]. Patient gets INR checked routinely; it was recently supratherapeutic (INR 6.4) in 08/2016 but generally is within therapeutic range or subtherapeutic. Due to blood from vagina, patient's called home health agency who recommended ED evaluation. also reports audible "popping" sound yesterday when moving patient; patient felt has had continued pain since that time. Patient states that pain is worse when she breathes deeply, but that it is not present at rest. Patient does not report recent cough, fever/chills, or sputum production. Patient has chronic right-sided weakness and inability to move left lower extremity following recent hip fracture. No new numbness/tingling/weakness/neurological deficits. Regarding patient's hip fracture, she has been kept in nonweightbearing status per orthopedic surgery; she has follow-up scheduled for 10/28. Patient was getting home physical therapy until recently. Per review of EMR, patient recently was approved for endocrinology referral regarding low cortisol levels and chronic weakness. Patient had reassuring PAP 06/2016. (Laci Arizmendi MD R2) Review of Systems Constitutional: DENIES: Fever, Chills Eyes: DENIES: Blurred vision, Eye pain Ears, nose, mouth, throat: DENIES: Hoarseness, Running Nose Respiratory: DENIES: Cough, Shortness of breath Cardiovascular: COMPLAINS OF: Chest pain (R chest w/ inspiration), DENIES: Syncope, Dyspnea on Exertion Gastrointestinal: DENIES: Abdominal pain, Diarrhea, Nausea Genitourinary: COMPLAINS OF: Urinary incontinence (chronic), DENIES: Urinary frequency Musculoskeletal: COMPLAINS OF: Joint pain (L hip), DENIES: Muscle aches Integumentary: DENIES: Abnormal pigmentation, Rash Neurologic: DENIES: Abnormal gait, Headache Psychiatric: COMPLAINS OF: Depression (chronic), DENIES: Confusion (Laci Arizmendi MD R2) Past Family Social History Past Medical History Per EMR L femur fracture as/B percutaneous pinning 08/2016 CVA X3 lupus diabetes mellitus II, on metformin hypothyroidism, hypertension, arthritis, hyperlipidemia, depression/anxiety, restless leg syndrome, Rotator cuff tear: Fall 2014 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: 3 pregnancies 1.) term delivery, no complications 2.) term, no complications 3.) term, no complications All vaginal deliveries Menopause age 51 No history of breast cancer Does not feel breast lumps No family history of breast, ovarian, uterine cancer No vaginal discharge or bleeding currently Past Surgical History Per EMR percutaneous pinning of L femur fx 08/2016 Cholecystectomy 1996 Right oophero salpingectomy 1996 Reported Medications Reported Meds & Active Scripts Active Tramadol (Tramadol HCl) 50 Mg Tab 50 Mg PO Q6H PRN Hydrocodone-Acetaminophen 10-325 mg Tab 1 Tab PO Q6H PRN Levothyroxine (Levothyroxine Sodium) 100 Mcg Tab 100 Mcg PO DAILY Fludrocortisone (Fludrocortisone Acetate) 0.1 Mg Tab 0.1 Mg PO DAILY Lisinopril 40 Mg Tab 40 Mg PO DAILY Metformin (Metformin HCl) 1,000 Mg Tab 1,000 Mg PO BIDPC With meals Simvastatin 40 Mg Tab 40 Mg PO HS Senna Plus 8.6-50 mg (Sennosides-Docusate Sodium) 1 Tab Tab 2 Tab PO BID PRN Drisdol (Ergocalciferol) 50,000 Unit Cap 50,000 Units PO Q7D Norvasc (Amlodipine Besylate) 5 Mg Tab 5 Mg PO DAILY Warfarin 5 Mg Tab 5 Mg PO DAILY Iron (Ferrous Sulfate) 325 Mg Tab 325 Mg PO DAILY Take Citalopram (Citalopram Hydrobromide) 40 Mg Tab 40 Mg PO DAILY hold this medication until course of antibiotics has been completed Gabapentin 800 Mg Tab 800 Mg PO TID Aspirin 81 Mg Tabdr 81 Mg PO DAILY Reported Risperdal (Risperidone) 2 Mg Tab 2 Mg PO DAILY (Laci Arizmendi MD R2) Allergies: Coded Allergies: Penicillin (Verified Allergy, Severe, Rash, 10/23/16) Family History Per EMR Father's at 63 of throat and tongue cancer Mother is at 55 cardiac complications One sister has cardiac disease and hypertension Social History Per EMR Tobacco: Denies Alcohol: Denies Drugs: Denies 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 No rashes or bruising appreciated EYES: No scleral icterus, injection, or drainage. EOM grossly intact HENT: Head: Normocephalic. Mouth: No lesions appreciated. Pharynx: Benign exam without erythema or exudate. NECK: No appreciated lymphadenopathy or thyromegaly CARDIOVASCULAR: Regular rate and rhythm without murmurs. Normal peripheral perfusion in lower extremities. RESPIRATORY: Normal respiratory rate. Lungs clear to auscultation bilaterally. GASTROINTESTINAL: Abdomen soft, nondistended, nontender. Bowel sounds normal. MUSCULOSKELETAL: No lower extremity swelling. No appreciated calf asymmetry. NEURO/PSYCH: Awake, alert, and oriented. Cranial nerves grossly normal. Grossly normal motor and sensory function. Vaginal: No external lesions. Speculum used to visualize: Small quantity of blood in vaginal vault; I did not see evidence of active bleeding from cervix. Possible small oozing from cervix but doubtful. Vault seemed somewhat atrophic. Bimanual performed; I did not feel any cervical abnormalities. No pain elicited. I could not appreciate fibroids. Ovary not palpated. Laboratory Laboratory Tests Test 10/23/16 10/23/16 11:25 13:41 White Blood Count 8.9 Red Blood Count 3.85 Hemoglobin 10.5 Hematocrit 32.4 Mean Corpuscular Volume 84.1 Mean Corpuscular Hemoglobin 27.4 Mean Corpuscular Hemoglobin 32.5 Concent Red Cell Distribution Width 15.8 Platelet Count 224 Mean Platelet Volume 9.5 Neutrophils (%) (Auto) 60.1 Lymphocytes (%) (Auto) 32.1 Monocytes (%) (Auto) 6.0 Eosinophils (%) (Auto) 1.2 Basophils (%) (Auto) 0.6 Neutrophils # (Auto) 5.3 Lymphocytes # (Auto) 2.9 Monocytes # (Auto) 0.5 Eosinophils # (Auto) 0.1 Basophils # (Auto) 0.1 CBC Comment DIFF FINAL Differential Comment Prothrombin Time 42.2 Prothromb Time International 3.6 Ratio Activated Partial 39.2 Thromboplast Time Sodium Level 138 Potassium Level 4.1 Chloride Level 103 Carbon Dioxide Level 24.1 Anion Gap 11 Blood Urea Nitrogen 25 Creatinine 1.24 Estimat Glomerular Filtration 45 Rate Random Glucose 77 Calcium Level 9.3 Total Bilirubin 0.4 Aspartate Amino Transf 21 (AST/SGOT) Alanine Aminotransferase 15 (ALT/SGPT) Alkaline Phosphatase 92 Total Creatine Kinase 123 Creatine Kinase MB 1.2 Troponin I LESS THAN 0.02 Total Protein 7.5 Albumin 3.8 Blood Type A POSITIVE Antibody Screen NEGATIVE Urine Color YELLOW Urine Turbidity CLEAR Urine pH 5.5 Urine Specific [place] 1.019 Urine Protein TRACE Urine Glucose (UA) NEG Urine Ketones 10 Urine Occult Blood NEG Urine Nitrite NEG Urine Bilirubin NEG Urine Urobilinogen LESS THAN 2.0 Urine Leukocyte Esterase NEG Urine RBC 4 Urine WBC 2 Urine Squamous Epithelial 1 Cells Urine Hyaline Casts 1 Urine Granular Casts 1 Urine Mucus FEW Microscopic Urinalysis Comment CATH-CULT NOT IND (Laci Arizmendi MD R2) Result Diagram: 10/23/16 1125 10/23/16 1125 Imaging Last Impressions Chest X-Ray 10/23/16 1116 Signed Impressions: Service Date/Time: Sunday, October 23, 2016 12:19 - CONCLUSION: No acute disease. Rasheed Zhou MD FACR Abdomen/Pelvis/Transvag US 10/23/16 0000 Signed Impressions: Service Date/Time: Sunday, October 23, 2016 11:37 - CONCLUSION: Limited examination because of body habitus. I don't see an etiology for the bleeding other than fibroids. Further evaluation is suggested. Rasheed Zhou MD FACR (Laci Arizmendi MD R2) Assessment and Plan Assessment and Plan Mrs. Velasquez is a 55 yo F with: Code Status Full code (Laci Arizmendi MD R2) Attending Attestation Patient seen and examined. Case reviewed and discussed with the resident team on 10/24/16. Agree with plan of care as discussed with me and documented in the resident note. (Pauly Hemphill MD) Problem List: (1) Vaginal bleeding Status: Acute Plan: -Continue to monitor H+H q 8hrs -Discussed with MANAGER LINE hospitalist after US imaging and case reviewed: -Reassuring lack of endometrial thickening. Likely secondary to supratherapeutic INR. If another episode of bleeding occurs, patient will require endometrial biopsy. Since lack of abdominal pain and US just demonstrative of fibroids, will defer additional imaging at this time Impression: Recent large clot of vaginal bleeding in association with INR 3.6. Prior history of post-menopausal spotting but no overt bleeding. US pelvis/TV US demonstrative of uterine fibroids. Endometrial stripe 3mm ED vaginal exam with moderate vaginal bleeding; no masses or lacerations. -Subsequent cessation of bleeding Recent PAP 06/2016 negative for premalignancy Hgb 10.5; consistent with chronic anemia in EMR (2) Anemia Status: Chronic Plan: -Due to recent vaginal bleeding, will increase ferrous sulfate to 325mg BID Impression: Patient with chronic anemia. Hgb today 10.5 mg/dl - iron 38, TIBC 200; patient taking 325mg ferrous sulfate daily (3) Chest pain Status: Acute Plan: -Will continue to monitor -Will provide incentive spirometer to encourage deep breathing -Continue chronic opiates and Impression: R sided chest pain following "pop" sensation when patient was lifted 10/22. Pain worse with breathing. Strongly suspect MSK in etiology EKG x1, troponin x1 reassuring -Trop <0.02 -EKG sinus, nonspecific T abnormalities. CXR without acute pathology (4) Hypothyroid Status: Chronic Plan: -Will check TSH and T4 while in hospital to titrate -Continue 100 ug Levothyroxine daily Impression: History of hypothyroidism on 100ug TSH daily (5) History of CVA (cerebrovascular accident) Status: Chronic Plan: -Since vaginal bleeding has stopped as of now, will continue ASA 81mg to continue some anticoagulant protection Impression: Patient with PMH CVA x3; persistent R sided deficits. Patient on Warfarin, 81mg aspirin (6) DM type 2 (diabetes mellitus, type 2) Status: Chronic Plan: -Will hold Metformin while inpatient case of contrast imaging and start low-doseSS NovoLog; we'll plan to restart on discharge Impression: Patient with PMH of T2DM on chronic metformin (7) Hypertension Status: Chronic Plan: -Continue Lisinopril 40mg daily -Amlodipine 5mg given for SBP 177 while in exam room Impression: Patient with chronic HTN; on Lisinopril 40mg daily and Amlodipine 5mg PRN (8) Femoral neck fracture Status: Chronic Plan: -Will provide PT while inpatient Impression: s/p percutaneous pinning 08/2016. Patient has outpatient follow-up with Dr. Washington 10/28/2016 (9) Supratherapeutic INR Status: Acute Plan: Impression: INR 3.6 today; generally well controlled on Warfarin 5mg daily -Will hold Warfarin and recheck INR tomorrow -Since no active bleeding at this time, do not anticipate need for reversal agent (10) DVT prophylaxis Status: Acute Plan: -Hold chemical prophylaxis due to recent vaginal bleeding and supratherapeutic INR -Bilateral SCD's (11) DEN (obstructive sleep apnea) Status: Chronic Plan: -Will provide CPAP at night (12) Depression Status: Chronic Plan: -Continue Citalopram (13) Vitamin D deficiency Status: Chronic Plan: Impression: Vit D level < 10 at last admission; prescribed 50K U weekly -Will repeat Vit D level to determine what additional supplementation is necessary (14) Nutrition, metabolism, and development symptoms Status: Acute Plan: Fluids: Will give maintenance NS Electrolytes: BMP wnl on admission Nutrition: Regular diet (aLci Arizmendi MD R2) Physician Certification 2 Midnight Certification Type: Admission for Inpatient Services Order for Inpatient Services The services are ordered in accordance with Medicare regulations or non- Medicare payer requirements, as applicable. In the case of services not specified as inpatient-only, they are appropriately provided as inpatient services in accordance with the 2-midnight benchmark. Estimated LOS (days): 3 days is the estimated time the patient will need to remain in the hospital, assuming treatment plan goals are met and no additional complications. 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
[2016-10-23] MEDS ORDERED: ACETAMINOPHEN/HYDROcodone 325 MG/10 MG TAB PO PRN (16:15)
[2016-10-23] MEDS ORDERED: traMADol HCL 50 MG TAB PO PRN (16:15)
[2016-10-23] MEDS ORDERED: DOCUSATE SODIUM 50 MG/SENNA 8.6 MG TAB PO PRN (16:15)
[2016-10-23] MEDS ORDERED: amLODIPine BESYLATE 5 MG TAB PO ONE (16:30)
[2016-10-23] MEDS ORDERED: DEXTROSE 50% IN WATER 50 ML VIAL(D50) IV PUSH PRN (16:45)
[2016-10-23] MEDS ORDERED: GLUCAGON 1 MG/ML VIAL OTHER PRN (16:45)
[2016-10-23] MEDS: GABAPENTIN 400 MG CAP PO SCH (16:47)
[2016-10-23] MEDS ORDERED: SODIUM CHLOR 0.9% 1000 ML INJ 1,000 ML IV SCH (19:00)
[2016-10-23 19:10] LABS: HEMATOCRIT 29.6 % (35.0-46.0); REVIEW FLAG FINAL
[2016-10-23 20:50] LABS: FREE T4 1.25 NG/DL (0.76-1.46)
[2016-10-23] MEDS: SODIUM CHLORIDE 0.9% FLUSH 10 ML FLUSH IV FLUSH SCH (20:56)
[2016-10-23] MEDS ORDERED: risperiDONE 1 MG TAB PO SCH (21:00)
[2016-10-23] MEDS ORDERED: PRAVASTATIN SOD 80 MG TAB PO SCH (21:00)
[2016-10-23] MEDS: INSULIN ASPART SUPPLEMENTAL SCALE SQ SCH (21:00)
[2016-10-23 23:23] LABS: BLOOD GAS BASE EXCESS 3.7 mmol/L (-2-2); BLOOD GAS CARBOXYHEMOGLOBIN 1.3 % (0-4); BLOOD GAS HCO3 28 mmol/L (22-26); BLOOD GAS METHEMOGLOBIN 0.3 % (0-2); BLOOD GAS O2 HGB SATURATION 95 % (90-100); BLOOD GAS OXYGEN CONTENT 12.3 Vol % (12.0-20.0); BLOOD GAS PCO2 44 mmHg (38-42); BLOOD GAS PO2 78 mmHG (61-120); BLOOD GAS TOTAL HGB 9.2 G/DL (12.0-16.0); CRITICAL VALUE NO; DRAW SITE LT BRACHIAL; FIO2 21 %; NUMBER OF ARTERIAL PUNCTURES 1; OXYGEN DEVICE ROOM AIR; STAT NO; TEMP CORR TO 98.6
--- NOTE | 2016-10-24 00:07 | EKG ---
Date Performed: 10/23/2016 Time Performed: 11:26:15 PTAGE: 55 years EKG: Sinus rhythm NONSPECIFIC T-WAVE ABNORMALITY BORDERLINE ECG PREVIOUS TRACING : 09/07/2016 22.20 DOCTOR: Jamal Ayers Interpretating Date/Time 10/24/2016 00:05:52
[2016-10-24 00:16] VITALS: BP 119/75; PULSE 74; RESP 20; TEMP 97.6; O2SAT 97
[2016-10-24 03:37] VITALS: BP 101/68; PULSE 70; RESP 20; TEMP 98; O2SAT 95
[2016-10-24 04:08] LABS: INTERNATIONAL NORMALIZED RATIO 4.5 RATIO; PROTHROMBIN TIME - PATIENT 53.3 SEC (9.8-11.6)
[2016-10-24 04:15] LABS: AUTOMATED NEUTROPHIL # 2.4 TH/MM3 (1.8-7.7); BASOPHIL # 0.1 TH/MM3 (0-0.2); BASOPHIL % 0.9 % (0.0-2.0); EOSINOPHIL # 0.2 TH/MM3 (0-0.4); HEMATOCRIT 27.6 % (35.0-46.0); HEMO FLAGS DIFF FINAL; LYMPHOCYTE # 2.8 TH/MM3 (1.0-4.8); MEAN CELL VOLUME 83.5 FL (80.0-100.0); MEAN CORPUSCULAR HEMOGLOBIN 27.7 PG (27.0-34.0); MEAN CORPUSCULAR HGB CONC 33.2 % (32.0-36.0); MONO % 8.7 % (0.0-8.0); NEUT % 40.4 % (16.0-70.0); PLATELET COUNT 170 TH/MM3 (150-450); RED CELL DISTRIBUTION WIDTH 15.4 % (11.6-17.2); WHITE BLOOD COUNT 5.9 TH/MM3 (4.0-11.0)
[2016-10-24 04:35] LABS: BICARBONATE 26.3 MEQ/L (21.0-32.0); POTASSIUM 3.9 MEQ/L (3.5-5.1)
[2016-10-24] MEDS ORDERED: LEVOTHYROXINE SODIUM 100 MCG TAB PO SCH (06:00)
[2016-10-24] MEDS: INSULIN ASPART SUPPLEMENTAL SCALE SQ SCH ×3 (06:19→16:00)
[2016-10-24 06:55] VITALS: BP 153/74; PULSE 67; RESP 18; TEMP 97.8; O2SAT 95
--- NOTE | 2016-10-24 08:28 | HHI.FPPN ---
Subjective Remarks 55 year old female presented with 2 days of vaginal bleeding. She had a large clot pass from her vagina, by report, was about 3 cm x 3 cm. Per report, she is post-menopausal, with her last period several years ago. She also has had vaginal spotting for the past several months. She takes Coumadin but levels have been therapeutic or even subtherapeutic recently. In addition, patient also had a "popping" sound yesterday when her was attempting to move her , and she is experiencing pain since then. She feels the pain when she breathes deeply. She also has a recent hip fracture on the left side and is non-weight bearing. She is followed by orthopedic surgery and was getting physical therapy at home. Her last Pap smear was June 2016 and was normal. This morning, she is lying in bed and appears comfortable. She reports no acute events overnight. She reports minimal pain this morning. She continues to have some right sided chest pain on the upper right side of her chest but only when she inspires deeply. She reports no further episodes of vaginal bleeding or blood clots. She does not feel weak, dizzy, or lightheaded. She has no shortness of breath. She has no abdominal pain, diarrhea, or constipation. (Shan Quick MD R2) Objective Vitals Vital Signs Date Time Temp Pulse Resp B/P Pulse Ox O2 Delivery O2 Flow Rate FiO2 10/24/16 06:55 97.8 67 18 153/74 95 10/24/16 03:37 98.0 70 20 101/68 95 10/24/16 00:16 97.6 74 20 119/75 97 10/23/16 22:00 96 10/23/16 19:12 98.3 81 20 115/73 96 10/23/16 17:50 132/78 10/23/16 15:49 98.4 77 18 174/98 96 10/23/16 15:48 89 15 156/87 96 10/23/16 13:16 77 16 158/87 97 10/23/16 11:29 98.4 80 16 164/96 96 10/23/16 11:06 81 15 I/O 10/23/16 10/23/16 10/23/16 10/24/16 10/24/16 10/24/16 07:00 15:00 23:00 07:00 15:00 23:00 Intake Total 500 ml Balance 500 ml Intake Oral 500 ml # Voids 1 # Bowel Movements 1 (Shan Quick MD R2) Result Diagram: 10/24/16 0325 10/24/16 0325 Imaging Last 72 hours Impressions Chest X-Ray 10/23/16 1116 Signed Impressions: Service Date/Time: Sunday, October 23, 2016 12:19 - CONCLUSION: No acute disease. Rasheed Zhou MD FACR Abdomen/Pelvis/Transvag US 10/23/16 0000 Signed Impressions: Service Date/Time: Sunday, October 23, 2016 11:37 - CONCLUSION: Limited examination because of body habitus. I don't see an etiology for the bleeding other than fibroids. Further evaluation is suggested. Rasheed Zhou MD FACR Objective Remarks GENERAL: Lying in bed, appears comfortable SKIN: Pale appearance at baseline EYES: Pale conjunctiva HENT: Normocephalic, normal pharynx, no nasal discharge NECK: No appreciated lymphadenopathy or thyromegaly CARDIOVASCULAR: Regular rate and rhythm without murmurs. Normal peripheral perfusion in lower extremities. RESPIRATORY: Normal respiratory rate. Lungs clear to auscultation bilaterally. GASTROINTESTINAL: Abdomen soft, nondistended, nontender. Bowel sounds normal. MUSCULOSKELETAL: No lower extremity swelling. Limited movement of left side due to hip fracture, and right side due to prior CVA's. NEURO/PSYCH: Awake, alert, and oriented. Cranial nerves grossly normal. Grossly normal motor and sensory function. Very flat affect at baseline. (Shan Quick MD R2) A/P Assessment and Plan 55 year old female presented with vaginal spotting for the past month and more significant vaginal bleeding over the last few days, with a history of Coumadin use. Discharge Planning Likely today if hemoglobin is stable, will follow up INR closely as an outpatient. Also needs gynecology referral as an outpatient. (Shan Quick MD R2) Attending Attestation Patient seen and examined. Case reviewed and discussed with the resident team. Agree with plan of care as discussed with me and documented in the resident note. pt seen and examined this am. agree with H&P as well as note from today. Pt wishes to go home today as long as her H/H are stable (Pauly Hemphill MD) Problem List: (1) Vaginal bleeding Status: Acute Plan: Vaginal spotting for the last month with more significant bleeding over the last few days. Transvaginal ultrasound showed no endometrial thickening ( endometrial stripe of 3 mm), but does show multiple uterine fibroids. INR in hospital found to be supratherapeutic at 3.6, and today is 4.5. Pelvic exam done on admission showed no masses or lacerations. Pap smear on 06/2016 was normal. Her hemoglobin is low but stable, and is consistent with her chronic anemia. Currently no active bleeding. - Check H&H now, trended down but likely dilutional as platelets and white count also dropped concomitantly. - Monitor for active bleeding. - Monitor INR, continue to hold Coumadin until therapeutic. - Will need outpatient follow up with financial planning adviser (2) Supratherapeutic INR Status: Acute Plan: Slightly supratherapeutic INR with bleeding. - Hold Coumadin and monitor INR. - Monitor for active bleeding, none currently (3) Anemia Status: Chronic Plan: Chronic anemia with iron deficiency, with recent vaginal bleeding. - Increased ferrous sulfate to 325mg BID to improve stores. (4) Chest pain Status: Acute Plan: Pain started after being moved by , with onset accompanied by an audible popping sound. Pain with deep inspiration. EKG and troponin X1 without evidence of acute myocardial infarction. -Will provide incentive spirometer to encourage deep breathing. -Continue pain medication from home. (5) History of CVA (cerebrovascular accident) Status: Chronic Plan: Has history of CVA X3 with persistent right sided deficits. Difficult history, but may have lupus anticoagulant and history of arrhythmia. She is maintained on aspirin and Coumadin. - Continue aspirin 81 mg daily and monitor closely for bleeding. - Holding Coumadin until INR therapeutic. - Continue to follow with neurology as an outpatient. (6) DM type 2 (diabetes mellitus, type 2) Status: Chronic Plan: Well controlled diabetes mellitus type II. Has not needed sliding scale insulin. - Continue low dose sliding scale insulin. - Holding metformin. (7) Hypertension Status: Chronic Plan: Chronic hypertension. - Continue Lisinopril 40mg daily (8) Femoral neck fracture Status: Chronic Plan: Recent history of hip fracture with percutaneous pinning on August 2016. - Follow up appt with Dr. Washington on 10/28/16 - Fall precautions - Physical therapy (9) DEN (obstructive sleep apnea) Status: Chronic Plan: History of sleep apnea - CPAP at night (10) Depression Status: Chronic Plan: - Continue Citalopram (11) Vitamin D deficiency Status: Chronic Plan: Vit D level < 10 at last admission; prescribed 50K U weekly. Now vitamin D level is 36.3. History of falls and hip fracture. - Continue supplementation as an outpatient. (12) Nutrition, metabolism, and development symptoms Status: Acute Plan: Fluids: Transition to PO intake Electrolytes: Normal Nutrition: Regular diet (13) DVT prophylaxis Status: Acute Plan: - Hold chemical prophylaxis due to recent vaginal bleeding and supratherapeutic INR - Bilateral SCD's (Shan Quick MD R2) Problem Qualifiers (1) Anemia: Qualified Code: D50.9 - Iron deficiency anemia, unspecified iron deficiency anemia type (2) DM type 2 (diabetes mellitus, type 2): Qualified Code: E11.8 - Type 2 diabetes mellitus with complication, unspecified site promotion agent insulin use status (3) Femoral neck fracture: Shan Quick MD R2 Oct 24, 2016 08:28 Pauly Hemphill MD Oct 24, 2016 15:03
[2016-10-24] MEDS: GABAPENTIN 400 MG CAP PO SCH ×2 (08:35→14:27)
[2016-10-24] MEDS: SODIUM CHLORIDE 0.9% FLUSH 10 ML FLUSH IV FLUSH SCH (08:37)
[2016-10-24] MEDS ORDERED: CITALOPRAM HYDROBROMIDE 40 MG TAB PO SCH (09:00)
[2016-10-24] MEDS ORDERED: ASPIRIN EC 81 MG TABEC PO SCH (09:00)
[2016-10-24] MEDS ORDERED: LISINOPRIL 20 MG TAB PO SCH (09:00)
[2016-10-24] MEDS ORDERED: FERROUS SULFATE 325 MG (65 MG ELEMENTAL IRON) TAB PO SCH (09:00)
[2016-10-24] MEDS ORDERED: FLUDROCORTISONE ACETATE 0.1 MG TAB PO SCH (09:00)
[2016-10-24 10:45] VITALS: BP 131/76; PULSE 73; RESP 18; TEMP 97.8; O2SAT 97
[2016-10-24] MEDS ORDERED: FERR325T PO (10:51)
--- NOTE | 2016-10-24 10:58 | HHI.DCPOC ---
Discharge Care Plan Diagnosis: (1) Supratherapeutic INR (2) Vaginal bleeding, abnormal (3) Uterine fibroid Goals to Promote Your Health * To prevent worsening of your condition and complications * To maintain your health at the optimal level Directions to Meet Your Goals Take your medications as prescribed Follow your dietary instruction Follow activity as directed Keep your appointments as scheduled Take your immunizations and boosters as scheduled If your symptoms worsen call your PCP, if no PCP go to Urgent Care Center or Emergency Room Smoking is Dangerous to Your Health. Avoid second hand smoke Call the 24-hour hour crisis hotline for domestic abuse at Shan Quick MD R2 Oct 24, 2016 10:58
[2016-10-24 12:55] LABS: HEMATOCRIT 25.9 % (35.0-46.0); REVIEW FLAG FINAL
[2016-10-24 15:04] VITALS: BP 142/78; PULSE 62; RESP 18
--- NOTE | 2016-10-24 15:52 | HHI.FPPN ---
Addendum to progress note ADDENDUM Reason for addendum: Additonal documentation Additional information Re-evaluated patient this afternoon at 3:30 PM. is in room. No reports of any active bleeding since admission. She remains asymptomatic. Discussed the drop in hemoglobin that is likely dilutional given that she was on IV fluids up until late morning. Evaluated patient and determined there is no active vaginal bleeding at this time, and no evidence of bleeding on her diaper. Discussed with patient and who prefer to be discharged, and will follow up with INR and CBC first thing in the morning. I counseled them to return immediately to the ED if there is any further bleeding or if patient becomes symptomatic. Discussed case with Dr. Hemphill. Shan Quick MD R2 Oct 24, 2016 15:51
[2016-11-18] MEDS ORDERED: COUM3TAB PO (12:26)
[2016-12-23] MEDS ORDERED: TRAM50TA PO (09:38)
[2016-12-23] MEDS ORDERED: HYDR-3583 PO (09:38)
[2016-12-24] MEDS ORDERED: WARF-20 PO (10:36)
[2016-12-29] MEDS ORDERED: LEVO88TA2 PO (19:31)
[2017-01-18] MEDS ORDERED: COUM4TAB PO (17:55)
== END 2016-10-24 16:41 | disposition home or self-care (01) ==
LOC: NEPC 10:46 → NEDA 13:21 → NEPHCDU 15:47
PROVIDERS: ADMIT Family Medicine; ATTEND Family Medicine
DX: N93.9 Abnormal uterine and vaginal bleeding, unspecified (principal); R07.9 Chest pain, unspecified; D25.9 Leiomyoma of uterus, unspecified; M19.90 Unspecified osteoarthritis, unspecified site; J45.909 Unspecified asthma, uncomplicated; F41.9 Anxiety disorder, unspecified; F32.9 Major depressive disorder, single episode, unspecified; E78.00 Pure hypercholesterolemia, unspecified; I10 Essential (primary) hypertension; E03.9 Hypothyroidism, unspecified; E11.9 Type 2 diabetes mellitus without complications; E78.5 Hyperlipidemia, unspecified; G25.81 Restless legs syndrome; D64.9 Anemia, unspecified; D68.32 Hemorrhagic disorder due to extrinsic circulating anticoagulants; G47.33 Obstructive sleep apnea (adult) (pediatric); E55.9 Vitamin D deficiency, unspecified; Z86.73 Personal history of transient ischemic attack (TIA), and cerebral infarction without residual deficits; Z88.0 Allergy status to penicillin; Z79.02 Long term (current) use of antithrombotics/antiplatelets; Z79.82 Long term (current) use of aspirin; Z79.84 Long term (current) use of oral hypoglycemic drugs
CPT/HCPCS: 36600; 71010; 76830; 76856; 80048; 80053; 81001; 82272; 82306; 82550; 82552; 82805; 82948; 84439; 84443; 84484; 85014; 85018; 85025; 85610; 85730; 86850; 86900; 86901; 93005; 93975; 97162; 99285; G0378; G8987; G8988; J7030

== ENCOUNTER 2016-11-19 11:43 | Inpatient (IN) | payer OTHER ==
[~2016-11-19] VITALS: Ht 170.2 cm; Wt 76.6 kg
[2016-11-19] VITALS (7 sets, daily range): BP systolic 98–115; BP diastolic 60–74; PULSE 83–106; RESP 12–28; TEMP 97.2–98.9; O2SAT 94–100
[~2016-11-19 11:43] MED LIST changes: +COUM3TAB PO; -ENOX80P SQ; -FERR1TAB36 PO; +FERR325T PO; -MACR100C2 PO; -WALKER/ADULT/FO1 MIS; -WARF-23 PO; -WHEEMIS3
--- NOTE | 2016-11-19 11:50 | PD ---
Physical Exam Date Seen by Provider: Nov 19, 2016 Time Seen by Provider: 11:47 Narrative 56 yo female that presents to the ED for lethargy and altered mental status. Patient has history of CVA x 2 in the past, some loss of talking since, but seems to be worst for the past two days. Complains of pain to the legs. Cannot come up with words. She is sleeping a lot more, altered. Takes coumadin and her INR has been high in the 3s. PCP send her here for evaluation. Passed blood cloths from rectum today. Most of the history obtained from the who provides the information. Vitals sign stable. Patient awaiting bed placement. Data Data Last Documented VS Vital Signs Date Time Temp Pulse Resp B/P Pulse Ox O2 Delivery O2 Flow Rate FiO2 11/19/16 11:45 98.9 106 28 106/63 94 Room Air [facility] Medical Record Reviewed: Yes Supervised Visit with TRUONG: No Hermes Kaba Nov 19, 2016 11:50
[2016-11-19] MEDS ORDERED: SODIUM CHLOR 0.9% 1000 ML INJ 1,000 ML IV ONE (13:00)
--- NOTE | 2016-11-19 13:07 | PD ---
HPI Chief Complaint: Altered Mental Status Time Seen by Provider: 12:49 Travel History International Travel<30 days: No Contact w/Intl Traveler<30days: No Traveled to known affect area: No History of Present Illness HPI The patient is a 56-year-old female who presents emergency department with her for increasing generalized weakness. The states that the patient has a history of previous CVA, has had difficulty ambulating without assistance the last several years, however, over the last month has had progressing symptoms. He also states the patient has had difficulty talking at times, intermittent episodes of confusion, and increasing lethargy. The patient is currently on Coumadin for previous history of 2 CVAs. The patient denies any chest pain, shortness of breath, nausea, vomiting, or abdominal pain. She denies any associated dysuria. However, the states patient has had a dry mostly nonproductive cough over the last several days and complained of shortness of breath this morning. The patient has also been passing clots vaginally, he notes the patient had similar symptoms several weeks ago when she was evaluated in the emergency department. She denies any visible blood in her stool. She also has a history of incontinence. The patient's primary physician is Dr. Quick at the [facility]. PFS Past Medical History Hx Anticoagulant Therapy: Yes (WARFARIN ) Arthritis: Yes Asthma: Yes Autoimmune Disease: Yes (LUPUS) Blood Disorders: No Anxiety: Yes Depression: Yes Heart Rhythm Problems: No Cancer: No Cardiovascular Problems: Yes (HTN) High Cholesterol: Yes Chemotherapy: No Chest Pain: No Congestive Heart Failure: No COPD: No Cerebrovascular Accident: Yes Diabetes: Yes Diminished Hearing: No Endocrine: Yes (DM II) Gastrointestinal Disorders: Yes Glaucoma: No Genitourinary: No Headaches: Yes Hepatitis: No Hiatal Hernia: Yes Heparin Induced Thrombocytopen: No Hypertension: Yes Immune Disorder: Yes (LUPUS) Implanted Vascular Access Dvce: No Kidney Stones: No Musculoskeletal: Yes Neurologic: Yes (CVA November 2012) Psychiatric: Yes Reproductive: Yes (ovary removed) Respiratory: Yes (SLEEP APNEA) Immunizations Current: Yes Migraines: No Myocardial Infarction: No Radiation Therapy: No Renal Failure: No Seizures: No Sickle Cell Disease: No Sleep Apnea: Yes Thyroid Disease: Yes (hypothyroidism) Ulcer: No Menopausal: Yes : 3 Para: 3 Ovarian Cysts: Yes (R) Tubal Ligation: Yes (R ) Past Surgical History Abdominal Surgery: Yes (cholycystectomy) Appendectomy: No Cardiac Surgery: No Cholecystectomy: Yes Ear Surgery: No Endocrine Surgery: No Eye Surgery: No Genitourinary Surgery: No Gynecologic Surgery: Yes Neurologic Surgery: No Oral Surgery: No Thoracic Surgery: No Other Surgery: Yes (GALL BLADDER AND OVARY OUT (15 years ago)) Social History Alcohol Use: No Tobacco Use: No Substance Use: No Allergies-Medications (Allergen,Severity, Reaction): Coded Allergies: Penicillin (Verified Allergy, Severe, Rash, 10/23/16) Reported Meds & Prescriptions Reported Meds & Active Scripts Active Coumadin (Warfarin) 3 Mg Tab 3 Mg PO DAILY Ferrous Sulfate 325 Mg Tab 325 Mg PO BID Tramadol (Tramadol HCl) 50 Mg Tab 50 Mg PO Q6H PRN Hydrocodone-Acetaminophen 10-325 mg Tab 1 Tab PO Q6H PRN Levothyroxine (Levothyroxine Sodium) 100 Mcg Tab 100 Mcg PO DAILY Fludrocortisone (Fludrocortisone Acetate) 0.1 Mg Tab 0.1 Mg PO DAILY Lisinopril 40 Mg Tab 40 Mg PO DAILY Metformin (Metformin HCl) 1,000 Mg Tab 1,000 Mg PO BIDPC With meals Simvastatin 40 Mg Tab 40 Mg PO HS Senna Plus 8.6-50 mg (Sennosides-Docusate Sodium) 1 Tab Tab 2 Tab PO BID PRN Drisdol (Ergocalciferol) 50,000 Unit Cap 50,000 Units PO Q7D Norvasc (Amlodipine Besylate) 5 Mg Tab 5 Mg PO DAILY Citalopram (Citalopram Hydrobromide) 40 Mg Tab 40 Mg PO DAILY hold this medication until course of antibiotics has been completed Gabapentin 800 Mg Tab 800 Mg PO TID Aspirin 81 Mg Tabdr 81 Mg PO DAILY Reported Risperdal (Risperidone) 2 Mg Tab 2 Mg PO DAILY Review of Systems Except as stated in HPI: all other systems reviewed are Neg General / Constitutional: No: Fever HENT: No: Lightheadedness Cardiovascular: No: Chest Pain or Discomfort Respiratory: Positive: Cough, No: Shortness of Breath Gastrointestinal: No: Nausea, Vomiting, Abdominal Pain Genitourinary: Positive: Vaginal Bleeding Musculoskeletal: Positive: Weakness Neurologic: Positive: Weakness, Change in Mentation Physical Exam Narrative GENERAL: Awake, alert, pleasant 56 year-old female who appears her stated age and is in no acute respiratory distress. SKIN: Focused skin assessment warm/dry. Pale complexion. HEAD: Atraumatic. Normocephalic. EYES: Pupils equal and round. No scleral icterus. No injection or drainage. ENT: No nasal bleeding or discharge. Dry mucous membranes. NECK: Trachea midline. No JVD. CARDIOVASCULAR: Regular rate and rhythm. No murmur appreciated. Heart rate in the 90s. RESPIRATORY: No accessory muscle use. Clear to auscultation. Breath sounds equal bilaterally. GASTROINTESTINAL: Abdomen soft, non-tender, nondistended. No rebound tenderness. Pelvic: External examination was performed in the presence of a female nurse. Examination of the external introitus reveals a large blood clot. MUSCULOSKELETAL: A few small bruises noted over the knees bilateral. Plantar flexion is 4+/5. [employer] is 4+/5. NEUROLOGICAL: Awake, slightly lethargic. No obvious cranial nerve deficits. Speech is slow but clear. Moves all 4 extremities. Back: No CVA tenderness. PSYCHIATRIC: Appropriate mood and affect; insight and judgment normal. Data Data Last Documented VS Vital Signs Date Time Temp Pulse Resp B/P Pulse Ox O2 Delivery O2 Flow Rate FiO2 11/19/16 13:56 98.2 94 12 111/67 95 11/19/16 13:10 Room Air Orders Electrocardiogram (11/19/16 11:56) Complete Blood Count With Diff (11/19/16 11:56) Comprehensive Metabolic Panel (11/19/16 11:56) Ckmb (Isoenzyme) Profile (11/19/16 11:56) Troponin I (11/19/16 11:56) Prothrombin Time / Inr (Pt) (11/19/16 11:56) Act Partial Throm Time (Ptt) (11/19/16 11:56) Urinalysis - C+S If Indicated (11/19/16 11:56) Magnesium (Mg) (11/19/16 11:56) Ct Brain W/O Iv Contrast(Rout) (11/19/16 11:56) Chest, Single Ap (11/19/16 ) Type And Screen (11/19/16 12:49) Lactic Acid (11/19/16 12:49) Blood Culture (11/19/16 12:49) Sodium Chlor 0.9% 1000 Ml Inj (Ns 1000 M (11/19/16 13:00) Cath For Specimen (11/19/16 12:49) Red Blood Cells (Rbc) (11/19/16 13:56) Blood Product Administration .UPON TRANSFUSION (11/19/16 13:56) Sodium Chlor 0.9% 250 Ml Inj (Ns 250 Ml (11/19/16 14:00) Diphenhydramine Inj (Benadryl Inj) (11/19/16 14:00) Acetaminophen (Tylenol) (11/19/16 14:00) Urinary Catheter Insert/Apply (11/19/16 14:29) Admit Order (Ed Use Only) (11/19/16 15:17) Labs Laboratory Tests Test 11/19/16 11/19/16 11/19/16 11/19/16 13:00 13:56 14:00 14:10 White Blood Count 9.9 TH/MM3 Red Blood Count 2.58 MIL/MM3 Hemoglobin 7.0 GM/DL Hematocrit 21.6 % Mean Corpuscular Volume 83.8 FL Mean Corpuscular Hemoglobin 27.0 PG Mean Corpuscular Hemoglobin 32.2 % Concent Red Cell Distribution Width 14.9 % Platelet Count 329 TH/MM3 Mean Platelet Volume 9.3 FL Neutrophils (%) (Auto) 58.2 % Lymphocytes (%) (Auto) 33.9 % Monocytes (%) (Auto) 6.3 % Eosinophils (%) (Auto) 0.9 % Basophils (%) (Auto) 0.7 % Neutrophils # (Auto) 5.8 TH/MM3 Lymphocytes # (Auto) 3.3 TH/MM3 Monocytes # (Auto) 0.6 TH/MM3 Eosinophils # (Auto) 0.1 TH/MM3 Basophils # (Auto) 0.1 TH/MM3 CBC Comment DIFF FINAL Differential Comment Sodium Level 140 MEQ/L Potassium Level 4.9 MEQ/L Chloride Level 104 MEQ/L Carbon Dioxide Level 24.7 MEQ/L Anion Gap 11 MEQ/L Blood Urea Nitrogen 52 MG/DL Creatinine 2.97 MG/DL Estimat Glomerular Filtration 16 ML/MIN Rate Random Glucose 75 MG/DL Lactic Acid Level 1.4 mmol/L Calcium Level 9.2 MG/DL Magnesium Level 1.8 MG/DL Total Bilirubin 0.3 MG/DL Aspartate Amino Transf 15 U/L (AST/SGOT) Alanine Aminotransferase 12 U/L (ALT/SGPT) Alkaline Phosphatase 82 U/L Total Creatine Kinase 92 U/L Troponin I LESS THAN 0.02 NG/ML Total Protein 6.9 GM/DL Albumin 3.4 GM/DL Blood Type A POSITIVE Antibody Screen NEGATIVE Crossmatch Leukocyte-Reduced Red Blood Cells Blood Bank Comment Urine Color YELLOW Urine Turbidity HAZY Urine pH 6.0 Urine Specific [place] 1.022 Urine Protein 30 mg/dL Urine Glucose (UA) NEG mg/dL Urine Ketones TRACE mg/dL Urine Occult Blood TRACE Urine Nitrite NEG Urine Bilirubin NEG Urine Urobilinogen 4.0 MG/DL Urine Leukocyte Esterase LARGE Urine RBC LESS THAN 1 /hpf Urine WBC 30 /hpf Urine WBC Clumps OCC Urine Squamous Epithelial <1 /hpf Cells Urine Amorphous Sediment RARE Urine Bacteria MOD /hpf Urine Hyaline Casts 9 /lpf Microscopic Urinalysis Comment CULTURE INDICATED Prothrombin Time 39.5 SEC Prothromb Time International 3.4 RATIO Ratio Activated Partial 43.2 SEC Thromboplast Time MDM Medical Decision Making Medical Screen Exam Complete: Yes Emergency Medical Condition: Yes Medical Record Reviewed: Yes Interpretation(s) CT the head reveals no acute hemorrhage or mass effect. Stable small meningioma again noted along the right parietal convexity's. Atrophy and old lacunar infarcts. Laboratory Tests Test 11/19/16 11/19/16 11/19/16 13:00 13:56 14:10 White Blood Count 9.9 TH/MM3 Red Blood Count 2.58 MIL/MM3 Hemoglobin 7.0 GM/DL Hematocrit 21.6 % Mean Corpuscular Volume 83.8 FL Mean Corpuscular Hemoglobin 27.0 PG Mean Corpuscular Hemoglobin 32.2 % Concent Red Cell Distribution Width 14.9 % Platelet Count 329 TH/MM3 Mean Platelet Volume 9.3 FL Neutrophils (%) (Auto) 58.2 % Lymphocytes (%) (Auto) 33.9 % Monocytes (%) (Auto) 6.3 % Eosinophils (%) (Auto) 0.9 % Basophils (%) (Auto) 0.7 % Neutrophils # (Auto) 5.8 TH/MM3 Lymphocytes # (Auto) 3.3 TH/MM3 Monocytes # (Auto) 0.6 TH/MM3 Eosinophils # (Auto) 0.1 TH/MM3 Basophils # (Auto) 0.1 TH/MM3 CBC Comment DIFF FINAL Differential Comment Sodium Level 140 MEQ/L Potassium Level 4.9 MEQ/L Chloride Level 104 MEQ/L Carbon Dioxide Level 24.7 MEQ/L Anion Gap 11 MEQ/L Blood Urea Nitrogen 52 MG/DL Creatinine 2.97 MG/DL Estimat Glomerular Filtration 16 ML/MIN Rate Random Glucose 75 MG/DL Lactic Acid Level 1.4 mmol/L Calcium Level 9.2 MG/DL Magnesium Level 1.8 MG/DL Total Bilirubin 0.3 MG/DL Aspartate Amino Transf 15 U/L (AST/SGOT) Alanine Aminotransferase 12 U/L (ALT/SGPT) Alkaline Phosphatase 82 U/L Total Creatine Kinase 92 U/L Troponin I LESS THAN 0.02 NG/ML Total Protein 6.9 GM/DL Albumin 3.4 GM/DL Blood Type A POSITIVE Antibody Screen NEGATIVE Crossmatch Leukocyte-Reduced Red Blood Cells Blood Bank Comment Prothrombin Time 39.5 SEC Prothromb Time International 3.4 RATIO Ratio Activated Partial 43.2 SEC Thromboplast Time Differential Diagnosis Differential diagnosis includes subdural hemorrhage, hyponatremia, dehydration, UTI, pneumonia, sepsis, symptomatic anemia, electrolyte abnormality. Narrative Course IV was established, labs are drawn and sent, and the patient was placed on cardiac telemetry monitoring and continuous pulse oximetry monitoring. EKG was ordered and interpreted. CT of the brain was obtained to evaluate for possible subdural hemorrhage. Catheter UA was sent to lab. Chest x-ray was obtained. The patient was administered IV fluids. Patient's hemoglobin was 7.0, patient had labs performed earlier this month, hemoglobin was in the nines at that time. Pelvic examination, external, reveals large blood clot at the introitus. Patient has abnormal vaginal bleeding, postmenopausal, on Coumadin. The patient will need further evaluation for postmenopausal bleeding and symptomatic anemia. The patient was transfused 2 units of PRBCs. The patient will be admitted to the medical team. The patient's creatinine was also elevated at 2.97, patient will be administered IV fluids and PRBCs. CT the brain is stable, reveals chronic meningioma. The patient does have active vaginal bleeding, and visible blood clots at the introitus, EMR reveals she had an ultrasound performed earlier this month for vaginal bleeding. Patient may benefit from evaluation by the on-call in store banker. I discussed the patient admitted the covering physician for Dr. Shan Quick, the patient will be admitted. Critical Care Narrative Aggregate critical care time was 40 minutes. Time to perform other separately billable procedures was not included in the critical care time. My time did not include minutes spent treating any other patients simultaneously or on activities that did not directly contribute to the patient's treatment. The services I provided to this patient were to treat and/or prevent clinically significant deterioration that could result in: Arrhythmia, hemorrhagic shock, hypotension, acute renal failure. I provided critical care services requiring my management, as noted below: Chart data review, documentation time, medication orders and management, vital sign assessments/reviewing monitor data, ordering and reviewing lab tests, ordering and interpreting/reviewing x-rays and diagnostic studies, care of the patient and discussion of the patient with the admitting physicians. Physician Communication Physician Communication The resident physician team, covering for Dr. Shan Quick, were paged for admission. I discussed the patient with Dr. Trinidad who agrees with admission. Diagnosis Primary Impression: Symptomatic anemia Additional Impressions: Vaginal bleeding Acute renal failure Qualified Code: N17.9 - Acute renal failure, unspecified acute renal failure type Coagulopathy Admitting Information Admitting Physician Requests: Admit Condition: Stable Antonio Gunn MD Nov 19, 2016 13:06
--- NOTE | 2016-11-19 13:42 | RADRPT ---
EXAM DATE/TIME: 11/19/2016 13:23 [facility] COMPARISON: CT BRAIN W/O CONTRAST, July 18, 2014, 23:24. CT BRAIN W/O CONTRAST, September 06, 2016, 19:41. INDICATIONS : Weakness and lethargic for one day. Meningioma. RADIATION DOSE: 36.65 CTDIvol (mGy) MEDICAL HISTORY : Hypertension. Diabetes mellitus type 2. Lupus, CVA SURGICAL HISTORY : None. ENCOUNTER: Initial ACUITY: 1 day PAIN SCALE: 2/10 LOCATION: cranial TECHNIQUE: Multiple contiguous axial images were obtained of the head. Using automated exposure control and adj ustment of the mA and/or kV according to patient size, radiation dose was kept as low as reasonably a chievable to obtain optimal diagnostic quality images. FINDINGS: CEREBRUM: The ventricles are normal for age. No evidence of midline shift, hemorrhage or acute infarction. Th ere are old lacunar type infarcts in the left basal ganglia. No extra-axial fluid collections are see n. A stable high density meningioma along the right frontal bone. POSTERIOR FOSSA: The cerebellum and brainstem are intact. The 4th ventricle is midline. The cerebellopontine angle i s unremarkable. EXTRACRANIAL: The visualized portion of the orbits is intact. SKULL: The calvaria is intact. No evidence of skull fracture. CONCLUSION: 1. No acute hemorrhage or mass effect. 2. Stable small meningioma again noted along the right parietal convexities. 3. Atrophy and old lacunar infarcts. Shan Cardenas MD on November 19, 2016 at 13:37 Board Certified Radiologist. This report was verified electronically.
[2016-11-19 13:49] LABS: AUTOMATED NEUTROPHIL # 5.8 TH/MM3 (1.8-7.7); BASOPHIL # 0.1 TH/MM3 (0-0.2); BASOPHIL % 0.7 % (0.0-2.0); EOSINOPHIL # 0.1 TH/MM3 (0-0.4); EOSINOPHIL % 0.9 % (0.0-4.0); HEMATOCRIT 21.6 % (35.0-46.0); HEMO FLAGS DIFF FINAL; LYMPH % 33.9 % (9.0-44.0); LYMPHOCYTE # 3.3 TH/MM3 (1.0-4.8); MEAN CELL VOLUME 83.8 FL (80.0-100.0); MEAN CORPUSCULAR HGB CONC 32.2 % (32.0-36.0); MONO % 6.3 % (0.0-8.0); NEUT % 58.2 % (16.0-70.0); PLATELET COUNT 329 TH/MM3 (150-450); RED BLOOD COUNT 2.58 MIL/MM3 (4.00-5.30); RED CELL DISTRIBUTION WIDTH 14.9 % (11.6-17.2); WHITE BLOOD COUNT 9.9 TH/MM3 (4.0-11.0)
[2016-11-19] MEDS ORDERED: SODIUM CHLOR 0.9% 250 ML INJ 250 ML IV ONE (14:00)
[2016-11-19] MEDS ORDERED: diphenhydrAMINE HCL 50 MG/ML VIAL IV PRN (14:00)
[2016-11-19] MEDS ORDERED: ACETAMINOPHEN 325 MG TAB PO PRN ×2 (14:00→18:00)
[2016-11-19 14:06] LABS: ANION GAP 11 MEQ/L (5-15); AST (GOT) 15 U/L (15-37); BICARBONATE 24.7 MEQ/L (21.0-32.0); BLOOD UREA NITROGEN 52 MG/DL (7-18); CHLORIDE 104 MEQ/L (98-107); GLOMERULAR FILTRATION RATE 16 ML/MIN (>89); MAGNESIUM 1.8 MG/DL (1.5-2.5); POTASSIUM 4.9 MEQ/L (3.5-5.1); SODIUM (NA) 140 MEQ/L (136-145)
[2016-11-19 14:11] LABS: ALKALINE PHOSPHATASE 82 U/L (45-117); ALT (GPT) 12 U/L (10-53); TOTAL BILIRUBIN ADULT 0.3 MG/DL (0.2-1.0)
[2016-11-19 14:16] LABS: CREATINE KINASE 92 U/L (26-192)
--- NOTE | 2016-11-19 14:22 | RADRPT ---
EXAM DATE/TIME: 11/19/2016 13:28 [facility] COMPARISON: CHEST SINGLE AP, October 23, 2016, 12:19. INDICATIONS : Shortness of breath. MEDICAL HISTORY : None. SURGICAL HISTORY : None. ENCOUNTER: Initial ACUITY: 1 day PAIN SCORE: 0/10 LOCATION: Bilateral chest FINDINGS: A single view of the chest demonstrates the lungs to be symmetrically aerated without evidence of mas s, infiltrate or effusion. The cardiomediastinal contours are unremarkable. Osseous structures are intact. CONCLUSION: No acute disease. Shan Cardenas MD on November 19, 2016 at 14:20 Board Certified Radiologist. This report was verified electronically.
[2016-11-19 14:35] LABS: APTT (PATIENT) 43.2 SEC (24.3-30.1); INTERNATIONAL NORMALIZED RATIO 3.4 RATIO; PROTHROMBIN TIME - PATIENT 39.5 SEC (9.8-11.6)
[2016-11-19 15:18] LABS: BACTERIA, URINE MOD /hpf; BLOOD, URINE TRACE (NEG); COMMENT (UR) CULTURE INDICATED; CULTURE IF INDICATED CULTURE INDICATED; GLUCOSE,URINE NEG (NEG); HYALINE CAST, URINE 9 /lpf (RARE); KETONE, URINE TRACE mg/dL (NEG); NITRITE,URINE NEG (NEG); SQUAMOUS EPITHELIAL CELL URINE <1 /hpf (0-5); URINE COLOR YELLOW (YELLW/STRAW)
[2016-11-19] MEDS ORDERED: MORPHINE SULFATE 4 MG/ML INJ IV PUSH ONE (15:30)
--- NOTE | 2016-11-19 16:00 | HHI.HP ---
[facility] Primary Care Physician Shan Quick MD Admission Diagnosis symptomatic anemia, acute renal failure, vaginal bleeding Diagnoses: International Travel<30 Days: No Contact w/Intl Traveler<30days: No Known Affected Area: No History of Present Illness This is a 56-year-old female who presents with her for increasing generalized weakness. The patient has been evaluated for vaginal bleeding earlier this month. In the beginning of October, she had been passing large clots approximately 3 x 3 cm from the vagina. She is postmenopausal with her last period several years ago. She has had vaginal spotting for the past several months. She is on Coumadin and was supratherapeutic on her admission and 10/23, and is currently supratherapeutic during this admission. She has had a recent hip fracture. Her last Pap smear was June 2016 and was normal. Earlier this month, a transvaginal ultrasound showed no endometrial thickening ( endometrial stripe of 3 mm), but it did show multiple uterine fibroids. It was recommended the patient follow with a SECOND OPERATOR. They have not been able to follow with SECOND OPERATOR as an outpatient at this time. is at the bedside and provides much of the history. We'll start take care of her since her strokes, fall with femur fracture. He states the patient had 3 "golf ball sized blood clots" per vagina which she passed earlier this morning. Additionally, she has not been able to eat anything for the past 3 days. He thinks her symptoms may have started around Tuesday when she had an exceptionally vigorous physical therapy session. Since that time, she has been very tired and has not been getting out of bed very much. She has been very weak and fatigued. Both describe generalized weakness and nothing unilateral. He does state in her weakened condition from laying on her bottom, she has developed a small area about the size of the pea of skin breakdown on her sacrum. Additionally, her ankles have been showing signs of pressure sores. ( Ralf Trinidad MD R2) Review of Systems Constitutional: DENIES: Fever, Chills Endocrine: COMPLAINS OF: Abnorml menstrual pattern Eyes: DENIES: Blurred vision, Diplopia Ears, nose, mouth, throat: COMPLAINS OF: Vertigo (worse when sitting up and standing up quickly) Respiratory: COMPLAINS OF: Cough, DENIES: Sputum production, Shortness of breath Cardiovascular: DENIES: Chest pain, Palpitations, Syncope Gastrointestinal: DENIES: Abdominal pain, Black stools, Bloody stools, Constipation, Diarrhea, Nausea, Vomiting Neurologic: COMPLAINS OF: Abnormal gait, DENIES: Headache Psychiatric: COMPLAINS OF: Confusion, DENIES: Anxiety (Ralf Trinidad MD R2) Past Family Social History Past Medical History Per EMR L femur fracture as/B percutaneous pinning 08/2016 CVA X3 lupus diabetes mellitus II, on metformin hypothyroidism, hypertension, arthritis, hyperlipidemia, depression/anxiety, restless leg syndrome, Rotator cuff tear: Fall 2014 Past Surgical History percutaneous pinning of L femur fx 08/2016 Cholecystectomy 1996 Right oophero salpingectomy 1996 Reported Medications Reported Meds & Active Scripts Active Coumadin (Warfarin) 3 Mg Tab 3 Mg PO DAILY Ferrous Sulfate 325 Mg Tab 325 Mg PO BID Tramadol (Tramadol HCl) 50 Mg Tab 50 Mg PO Q6H PRN Hydrocodone-Acetaminophen 10-325 mg Tab 1 Tab PO Q6H PRN Levothyroxine (Levothyroxine Sodium) 100 Mcg Tab 100 Mcg PO DAILY Fludrocortisone (Fludrocortisone Acetate) 0.1 Mg Tab 0.1 Mg PO DAILY Lisinopril 40 Mg Tab 40 Mg PO DAILY Metformin (Metformin HCl) 1,000 Mg Tab 1,000 Mg PO BIDPC With meals Simvastatin 40 Mg Tab 40 Mg PO HS Senna Plus 8.6-50 mg (Sennosides-Docusate Sodium) 1 Tab Tab 2 Tab PO BID PRN Drisdol (Ergocalciferol) 50,000 Unit Cap 50,000 Units PO Q7D Norvasc (Amlodipine Besylate) 5 Mg Tab 5 Mg PO DAILY Citalopram (Citalopram Hydrobromide) 40 Mg Tab 40 Mg PO DAILY hold this medication until course of antibiotics has been completed Gabapentin 800 Mg Tab 800 Mg PO TID Aspirin 81 Mg Tabdr 81 Mg PO DAILY Reported Risperdal (Risperidone) 2 Mg Tab 2 Mg PO DAILY (Ralf Trinidad MD R2) Allergies: Coded Allergies: Penicillin (Verified Allergy, Severe, Rash, 10/23/16) Active Ordered Medications Active Medications Morphine Sulfate (Morphine Inj) 2 mg ONCE ONCE IV PUSH Last administered on t 16:46; Admin Dose 2 MG; Start 11/19/16 at 15:30; Stop 11/19/16 at 15:31 ; Status DC Sodium Chloride 1,000 ml @ 999 mls/hr BOLUS ONCE IV Last administered on 13:09; Admin Dose 999 MLS/HR; Start 11/19/16 at 13:00; Stop 11/19/16 at 14: 00; Status DC Sodium Chloride (NS 250 ml Inj) 250 ml @ 15 mls/hr ONCE ONCE IV Last administered on 11/19/16 15:56; Admin Dose 15 MLS/HR; Start 11/19/16 at 14:00; Stop 11/20/16 at 06:39 Family History Father's at 63 of throat and tongue cancer Mother is at 55 cardiac complications One sister has cardiac disease and hypertension Social History Tobacco: Denies Alcohol: Denies Drugs: Denies 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 SKIN: Stage I to 2 pressure ulcer on the sacrum. Areas of pressure in the ankles bilaterally HEAD: Atraumatic. Normocephalic. No temporal or scalp tenderness. EYES: Pupils equal round and reactive. Extraocular motions intact. No scleral icterus. No injection or drainage. ENT: Nose without bleeding, purulent drainage or septal hematoma. Throat without erythema, tonsillar hypertrophy or exudate. Uvula midline. Airway patent. NECK: Trachea midline. No JVD or lymphadenopathy. Supple, nontender, no meningeal signs. CARDIOVASCULAR: Regular rate and rhythm without murmurs, gallops, or rubs. RESPIRATORY: Clear to auscultation. Breath sounds equal bilaterally. No wheezes , rales, or rhonchi. GASTROINTESTINAL: Abdomen soft, non-tender, nondistended. No hepato-splenomegaly , or palpable masses. No guarding. MUSCULOSKELETAL: Extremities without clubbing, cyanosis, or edema. No joint tenderness, effusion, or edema noted. No calf tenderness. Negative Homans sign bilaterally. NEUROLOGICAL: Awake and alert 3. Cranial nerves II through XII intact. Slow speech. Poor effort, but appears to have 4 or 5 strength on the right side. Right-sided facial droop. This looks to be unchanged from previous exams. Laboratory Laboratory Tests Test 11/19/16 11/19/16 11/19/16 11/19/16 13:00 13:56 14:00 14:10 White Blood Count 9.9 Red Blood Count 2.58 Hemoglobin 7.0 Hematocrit 21.6 Mean Corpuscular Volume 83.8 Mean Corpuscular Hemoglobin 27.0 Mean Corpuscular Hemoglobin 32.2 Concent Red Cell Distribution Width 14.9 Platelet Count 329 Mean Platelet Volume 9.3 Neutrophils (%) (Auto) 58.2 Lymphocytes (%) (Auto) 33.9 Monocytes (%) (Auto) 6.3 Eosinophils (%) (Auto) 0.9 Basophils (%) (Auto) 0.7 Neutrophils # (Auto) 5.8 Lymphocytes # (Auto) 3.3 Monocytes # (Auto) 0.6 Eosinophils # (Auto) 0.1 Basophils # (Auto) 0.1 CBC Comment DIFF FINAL Differential Comment Sodium Level 140 Potassium Level 4.9 Chloride Level 104 Carbon Dioxide Level 24.7 Anion Gap 11 Blood Urea Nitrogen 52 Creatinine 2.97 Estimat Glomerular Filtration 16 Rate Random Glucose 75 Lactic Acid Level 1.4 Calcium Level 9.2 Magnesium Level 1.8 Total Bilirubin 0.3 Aspartate Amino Transf 15 (AST/SGOT) Alanine Aminotransferase 12 (ALT/SGPT) Alkaline Phosphatase 82 Total Creatine Kinase 92 Troponin I LESS THAN 0.02 Total Protein 6.9 Albumin 3.4 Blood Type A POSITIVE Antibody Screen NEGATIVE Crossmatch Leukocyte-Reduced Red Blood Cells Blood Bank Comment Urine Color YELLOW Urine Turbidity HAZY Urine pH 6.0 Urine Specific [place] 1.022 Urine Protein 30 Urine Glucose (UA) NEG Urine Ketones TRACE Urine Occult Blood TRACE Urine Nitrite NEG Urine Bilirubin NEG Urine Urobilinogen 4.0 Urine Leukocyte Esterase LARGE Urine RBC LESS THAN 1 Urine WBC 30 Urine WBC Clumps OCC Urine Squamous Epithelial <1 Cells Urine Amorphous Sediment RARE Urine Bacteria MOD Urine Hyaline Casts 9 Microscopic Urinalysis Comment CULTURE INDICATED Prothrombin Time 39.5 Prothromb Time International 3.4 Ratio Activated Partial 43.2 Thromboplast Time Date/Time Procedure Status Source Growth 11/19/16 14:00 Urine Culture Received Urine Clean Catch Pending 11/19/16 13:05 Aerobic Blood Culture Received Blood Peripheral Pending 11/19/16 13:05 Anaerobic Blood Culture Received Blood Peripheral Pending (Ralf Trinidad MD R2) Result Diagram: 11/19/16 1300 11/19/16 1300 Imaging Last Impressions Head CT 11/19/16 1156 Signed Impressions: Service Date/Time: Saturday, November 19, 2016 13:23 - CONCLUSION: 1. No acute hemorrhage or mass effect. 2. Stable small meningioma again noted along the right parietal convexities. 3. Atrophy and old lacunar infarcts. Shan Cardenas MD Chest X-Ray 11/19/16 0000 Signed Impressions: Service Date/Time: Saturday, November 19, 2016 13:28 - CONCLUSION: No acute disease. Shan Cardenas MD (Ralf Trinidad MD R2) Assessment and Plan Assessment and Plan 56-year-old female with previous history of abnormal vaginal bleeding returns with supratherapeutic INR at 3.4, and continued vaginal bleeding passing large clots. Previous transvaginal ultrasound revealed endometrial stripe less than 3. She will be admitted for red blood cell transfusion, gynecology consult. Code Status DNR Discussed Condition With Dr. Derick Gunn (Ralf Trinidad MD R2) Attending Attestation THIS CASE WAS DISCUSSED WITH THE RESIDENT PHYSICIANS. I HAVE REVIEWED THE RECORD AND AGREE WITH THE ABOVE NOTE AND PLAN OF CARE WAS DISCUSSED. I HAVE AUTHORIZED THE ORDER FOR ADMISSION TO AN IN-PATIENT STATUS. (Julius Mcnamara MD) Problem List: (1) Vaginal bleeding, abnormal Status: Acute Plan: Transvaginal ultrasound on 10/23 showed endometrial stripe less than 3 mm. Also showed fibroids. Bleeding is likely iatrogenic from supratherapeutic INR and not from fibroids. Case discussed with on-call SECOND OPERATOR, Dr. Sepulveda. Consult SECOND OPERATOR Transfuse 2 units Counseled importance of following with a SECOND OPERATOR as an outpatient Patient may benefit from 10 mg Provera until Coumadin in therapeutic range. (2) Anemia Status: Chronic Plan: Transfusion as above. Monitor posttransfusion H&H (3) Supratherapeutic INR Status: Acute Plan: Currently holding Coumadin. Recheck INR in the morning. (4) Pressure ulcer Status: Acute Plan: Physical exam, and history reveals stage I/2 pressure ulcer at the sacrum , and bilateral ankle. Wound care nurse consulted. Offload areas as able. (5) Acute renal failure Status: Acute Plan: Baseline creatinine on 10/24 was 1.13 Currently creatinine 2.97 Likely prerenal from decreased by mouth intake. Normal saline 100 mL's per hour (6) History of CVA (cerebrovascular accident) Status: Chronic Plan: History of CVA 3 with persistent right-sided deficits. Hold Coumadin and aspirin given acute bleeding. Follows with neurology as an outpatient. (7) FEN/PPX Status: Acute Plan: Fluids: Normal saline at 100 mg per hour. Electrolytes: Monitor and replace when necessary Nutrition: Regular diet as tolerated. Prophylaxis: Supratherapeutic INR. Holding Coumadin. Bilateral SCDs Chronic medical problems: History of CVA: See above regarding warfarin management. Type 2 diabetes: Hold home metformin. Sliding scale insulin while inpatient. Recent femoral neck fracture: We'll provide PT while inpatient. Morphine 2 mg every 3 hours when necessary pain 6-10. Depression: Continue home citalopram 40 mg by mouth daily. Vitamin D deficiency: Continue current management as an outpatient. Hyperlipidemia: Continue simvastatin. Hypothyroidism: Continue levothyroxine 100 MCG daily Hypertension: Amlodipine 5 mg by mouth daily; she does have a history of labile blood pressures. Carefully monitor. History of adrenal insufficiency: Further workup with endocrinology was recommended as an outpatient. Continue fludrocortisone 0.1 mg by mouth daily. (Ralf Trinidad MD R2) Physician Certification 2 Midnight Certification Type: Admission for Inpatient Services Order for Inpatient Services The services are ordered in accordance with Medicare regulations or non- Medicare payer requirements, as applicable. In the case of services not specified as inpatient-only, they are appropriately provided as inpatient services in accordance with the 2-midnight benchmark. Estimated LOS (days): 3 days is the estimated time the patient will need to remain in the hospital, assuming treatment plan goals are met and no additional complications. Post-Hospital Plan: Not yet determined (Ralf Trinidad MD R2) Problem Qualifiers (1) Anemia: Qualified Code: D64.9 - Anemia, unspecified type (2) Acute renal failure: Qualified Code: N17.9 - Acute renal failure, unspecified acute renal failure type Ralf Trinidad MD R2 Nov 19, 2016 16:00 Julius Mcnamara MD Nov 20, 2016 10:43
[2016-11-19] MEDS ORDERED: DOCUSATE SODIUM 50 MG/SENNA 8.6 MG TAB PO PRN (18:00)
[2016-11-19] MEDS ORDERED: GABAPENTIN 400 MG CAP PO SCH (18:00)
[2016-11-19] MEDS ORDERED: SODIUM CHLORIDE 0.9% FLUSH 10 ML FLUSH IV FLUSH PRN (18:00)
[2016-11-19] MEDS ORDERED: ONDANSETRON HCL 4 MG/2 ML VIAL IVP PRN (18:00)
[2016-11-19] MEDS ORDERED: NALOXONE HCL 0.4 MG/ML AMP IV PRN ×2 (18:00→18:30)
[2016-11-19] MEDS ORDERED: MAGNESIUM HYDROXIDE SUSP 30 ML CUP PO PRN (18:00)
[2016-11-19] MEDS ORDERED: MORPHINE SULFATE 4 MG/ML INJ IV PRN ×2 (18:30)
[2016-11-19] MEDS: SODIUM CHLOR 0.9% 1000 ML INJ 1,000 ML IV SCH (18:58)
--- NOTE | 2016-11-19 19:02 | PD.CONS ---
HPI Chief Complaint Consultation regarding vaginal bleeding Date Seen: Nov 19, 2016 Time Seen: 18:30 Travel History International Travel<30 Days: No Contact w/Intl Traveler<30Days: No Known Affected Area: No History of Present Illness HPI 56-year-old 3 para 3 who has been menopausal since her early 50s. She was admitted to the hospital today due to anemia secondary to post menopausal bleeding. The patient was interviewed with the assistance of her in answering questions as remembers sometimes limited due to previous cerebrovascular accidents. He reports that her vaginal bleeding usually arises when her Coumadin becomes supratherapeutic. When it is decreased and she is in the therapeutic range she does not have bleeding. The patient had an admission in early October 2016 at which time an ultrasound was performed demonstrating multiple small uterine fibroids. The endometrial echo at that time was uniform and measured 3 mm. There did not appear to be intracavitary components to the fibroids. She had a Pap smear in summer 2015 which was normal. She has no history of estrogen replacement therapy. Para: 3 : 3 History Past Medical History Narrative Medical See admission H&P Past Surgical History Narrative Surgical Cholecystectomy, left hip percutaneous pinning in 2016, prior unilateral salpingo-oophorectomy Family History Family History: daughter from cerebrovascular accident Social History Alcohol Use: No Tobacco Use: No Substance Abuse: No Allergies-Medications (Allergen,Severity, Reaction): Coded Allergies: Penicillin (Verified Allergy, Severe, Rash, 10/23/16) Home Meds Active Scripts Warfarin (Coumadin)3 Mg Tab3 Mg PO DAILY #30 TAB Ref 0 Prov:Shan Quick MD R2 11/18/16 Ferrous Sulfate 325 Mg [id number] Mg PO BID #60 TAB Prov:Shan Quick MD R2 10/24/16 Tramadol 50 Mg Tab50 Mg PO Q6H PRN (PAIN) #120 TAB Ref 0 Prov:Shan Quick MD R2 10/20/16 Hydrocodone-Acetaminophen 10-325 mg Tab1 Tab PO Q6H PRN (PAIN) #120 TAB Ref 0 Prov:Shan Quick MD R2 10/19/16 Levothyroxine 100 Mcg Tvy025 Mcg PO DAILY #90 TAB Ref 4 Prov:Shan Quick MD R2 10/14/16 Fludrocortisone 0.1 Mg Tab0.1 Mg PO DAILY #30 TAB Ref 6 Prov:Shan Quick MD R2 10/13/16 Lisinopril 40 Mg Tab40 Mg PO DAILY #30 TAB Ref 6 Prov:Shan Quick MD R2 10/13/16 Metformin 1,000 Mg Tab1,000 Mg PO BIDPC #60 TAB Ref 6 With meals Prov:Shan Quick MD R2 10/13/16 Simvastatin 40 Mg Tab40 Mg PO HS #90 TAB Ref 6 Prov:Shan Quick MD R2 10/13/16 Sennosides-Docusate Sodium (Senna Plus 8.6-50 mg)1 Tab Tab2 Tab PO BID PRN ( CONSTIPATION) #60 TAB Prov:Arcelia Venegas MD R3 09/10/16 Ergocalciferol (Drisdol)50,000 Unit Cap50,000 Units PO Q7D #6 CAP Prov:Arcelia Venegas MD R3 09/10/16 Amlodipine (Norvasc)5 Mg Tab5 Mg PO DAILY #30 TAB Prov:Arcelia Venegas MD R3 09/10/16 Citalopram 40 Mg Tab40 Mg PO DAILY #90 TAB Ref 0 hold this medication until course of antibiotics has been completed Prov:John Orellana DO 08/14/16 Gabapentin 800 Mg Yti240 Mg PO TID #270 TAB Ref 0 Prov:Shan Quick MD R2 08/03/16 Aspirin 81 Mg Tabdr81 Mg PO DAILY #90 TAB Prov:Shan Quick MD R2 08/03/16 Reported Medications Risperidone (Risperdal)2 Mg Tab2 Mg PO DAILY #30 TAB Ref 0 08/20/16 Physical Exam Exam Limitations: Clinical Condition, Poor Historian Vital Signs Date Time Temp Pulse Resp B/P Pulse Ox O2 Delivery O2 Flow Rate FiO2 11/19/16 16:05 98.2 97 13 105/67 98 Room Air 11/19/16 15:39 98.3 97 17 103/74 97 11/19/16 13:56 98.2 94 12 111/67 95 11/19/16 13:10 14 96 Room Air 11/19/16 11:45 98.9 106 28 106/63 94 Room Air Narrative GENERAL: Well-nourished, well-developed patient. She communicates but clearly has difficulty with long-term memory. She has a very flat affect. SKIN: Warm and dry. HEAD: Normocephalic and atraumatic. EYES: No scleral icterus. No injection or drainage. ENT: No nasal drainage noted. Mucous membranes pink. Airway patent. NECK: Supple, trachea midline. No JVD. CARDIOVASCULAR: Regular rate and rhythm without murmurs, gallops, or rubs. RESPIRATORY: Breath sounds equal bilaterally. No accessory muscle use. Abdomen: Soft nontender no pressured organomegaly or masses EXTREMITIES: No cyanosis or edema. Small ankle ulcerations noted BACK: Nontender without obvious deformity. No CVA tenderness. NEUROLOGICAL: Awake and alert. Motor and sensory grossly within normal limits. Five out of 5 muscle strength in all muscle groups. Normal speech. Data Data Vital Signs Reviewed: Yes Orders Electrocardiogram (11/19/16 11:56) Complete Blood Count With Diff (11/19/16 11:56) Comprehensive Metabolic Panel (11/19/16 11:56) Ckmb (Isoenzyme) Profile (11/19/16 11:56) Troponin I (11/19/16 11:56) Prothrombin Time / Inr (Pt) (11/19/16 11:56) Act Partial Throm Time (Ptt) (11/19/16 11:56) Urinalysis - C+S If Indicated (11/19/16 11:56) Magnesium (Mg) (11/19/16 11:56) Ct Brain W/O Iv Contrast(Rout) (11/19/16 11:56) Chest, Single Ap (11/19/16 ) Type And Screen (11/19/16 12:49) Lactic Acid (11/19/16 12:49) Blood Culture (11/19/16 12:49) Sodium Chlor 0.9% 1000 Ml Inj (Ns 1000 M (11/19/16 13:00) Cath For Specimen (11/19/16 12:49) Red Blood Cells (Rbc) (11/19/16 13:56) Blood Product Administration .UPON TRANSFUSION (11/19/16 13:56) Sodium Chlor 0.9% 250 Ml Inj (Ns 250 Ml (11/19/16 14:00) Diphenhydramine Inj (Benadryl Inj) (11/19/16 14:00) Acetaminophen (Tylenol) (11/19/16 14:00) Urinary Catheter Insert/Apply (11/19/16 14:29) Admit Order (Ed Use Only) (11/19/16 15:17) Morphine Inj (Morphine Inj) (11/19/16 15:30) Urine Culture (11/19/16 14:00) Admit To Inpatient (11/19/16 ) Code Status (11/19/16 17:52) Vital Signs (Adult) Q4H (11/19/16 17:52) Activity Bed Rest (11/19/16 17:52) Intake + Output JOE.QSHIFT (11/19/16 17:52) Diet Regular Basic (11/19/16 Dinner) Sodium Chlor 0.9% 1000 Ml Inj (Ns 1000 M (11/19/16 17:52) Sodium Chloride 0.9% Flush (Ns Flush) (11/19/16 18:00) Sodium Chloride 0.9% Flush (Ns Flush) (11/19/16 21:00) Acetaminophen (Tylenol) (11/19/16 18:00) Ondansetron Inj (Zofran Inj) (11/19/16 18:00) Magnesium Hydroxide Liq (Milk Of Magnesi (11/19/16 18:00) Comprehensive Metabolic Panel (11/20/16 06:00) Complete Blood Count With Diff (11/20/16 06:00) Pt Request For Service (11/19/16 17:52) Case Management Consult (11/19/16 17:52) Consult Wound / Ostomy Nurse (11/19/16 17:52) Scd Bilateral/Knee High JOE.BID (11/19/16 17:52) Naloxone Inj (Narcan Inj) (11/19/16 18:00) Inpatient Certification (11/19/16 ) Amlodipine (Norvasc) (11/20/16 09:00) Citalopram (Celexa) (11/20/16 09:00) Ferrous Sulfate (Ferrous Sulfate) (11/19/16 21:00) Fludrocortisone (Florinef) (11/20/16 09:00) Gabapentin (Neurontin) (11/19/16 18:00) Levothyroxine (Synthroid) (11/20/16 06:00) Lisinopril (Prinivil) (11/20/16 09:00) Risperidone (Risperdal) (11/20/16 09:00) Docusate Sodium-Senna (Skye-Colace) (11/19/16 18:00) Pravastatin (Pravachol) (11/19/16 21:00) Consult Gynecology (11/19/16 ) (Hub Use Only)Inp Phy Cons/Ref (11/19/16 ) Prothrombin Time / Inr (Pt) (11/20/16 06:00) ^ Elevate Heels Off Bed Surfac (11/19/16 ) ^ Skin Protective Barrier (11/19/16 ) ^ Skin Protective Barrier (11/19/16 ) Notify Dr: Other (11/19/16 ) Morphine Inj (Morphine Inj) (11/19/16 18:30) Morphine Inj (Morphine Inj) (11/19/16 18:30) Naloxone Inj (Narcan Inj) (11/19/16 18:30) Labs Laboratory Tests Test 11/19/16 11/19/16 11/19/16 11/19/16 13:00 13:56 14:00 14:10 White Blood Count 9.9 Red Blood Count 2.58 Hemoglobin 7.0 Hematocrit 21.6 Mean Corpuscular Volume 83.8 Mean Corpuscular Hemoglobin 27.0 Mean Corpuscular Hemoglobin 32.2 Concent Red Cell Distribution Width 14.9 Platelet Count 329 Mean Platelet Volume 9.3 Neutrophils (%) (Auto) 58.2 Lymphocytes (%) (Auto) 33.9 Monocytes (%) (Auto) 6.3 Eosinophils (%) (Auto) 0.9 Basophils (%) (Auto) 0.7 Neutrophils # (Auto) 5.8 Lymphocytes # (Auto) 3.3 Monocytes # (Auto) 0.6 Eosinophils # (Auto) 0.1 Basophils # (Auto) 0.1 CBC Comment DIFF FINAL Differential Comment Sodium Level 140 Potassium Level 4.9 Chloride Level 104 Carbon Dioxide Level 24.7 Anion Gap 11 Blood Urea Nitrogen 52 Creatinine 2.97 Estimat Glomerular Filtration 16 Rate Random Glucose 75 Lactic Acid Level 1.4 Calcium Level 9.2 Magnesium Level 1.8 Total Bilirubin 0.3 Aspartate Amino Transf 15 (AST/SGOT) Alanine Aminotransferase 12 (ALT/SGPT) Alkaline Phosphatase 82 Total Creatine Kinase 92 Troponin I LESS THAN 0.02 Total Protein 6.9 Albumin 3.4 Blood Type A POSITIVE Antibody Screen NEGATIVE Crossmatch Leukocyte-Reduced Red Blood Cells Blood Bank Comment Urine Color YELLOW Urine Turbidity HAZY Urine pH 6.0 Urine Specific [place] 1.022 Urine Protein 30 Urine Glucose (UA) NEG Urine Ketones TRACE Urine Occult Blood TRACE Urine Nitrite NEG Urine Bilirubin NEG Urine Urobilinogen 4.0 Urine Leukocyte Esterase LARGE Urine RBC LESS THAN 1 Urine WBC 30 Urine WBC Clumps OCC Urine Squamous Epithelial <1 Cells Urine Amorphous Sediment RARE Urine Bacteria MOD Urine Hyaline Casts 9 Microscopic Urinalysis Comment CULTURE INDICATED Prothrombin Time 39.5 Prothromb Time International 3.4 Ratio Activated Partial 43.2 Thromboplast Time Date/Time Procedure Status Source Growth 11/19/16 14:00 Urine Culture Received Urine Clean Catch Pending 11/19/16 13:05 Aerobic Blood Culture Received Blood Peripheral Pending 11/19/16 13:05 Anaerobic Blood Culture Received Blood Peripheral Pending MDM Medical Record Reviewed: Yes Narrative Course / MDM Assessment: A 56-year-old postmenopausal female with vaginal bleeding and anemia secondary to hypocoagulable state on Coumadin. Fibroid uterus, Multiple other comorbid conditions. Plan: Based on the patient's history it appears that her bleeding becomes an issue when she becomes hypo-coagulable on her Coumadin. Based on the ultrasound from this month the fibroids are noted but it does not appear that these are in a position to obviously be the cause of her bleeding with no subendometrial or intracavitary components noted. I therefore do not feel that this is a surgical problem at this time. I am reassured by the 3 mm depth of her endometrium that she is unlikely to have a hyperplastic or malignant change in the endometrium. I would recommend 10 mg of Provera orally to assist in stabilizing the endometrium while her hypocoagulable state resolves. Once her INR is in the therapeutic window I would recommend discontinuing the Provera in 14 days. Consideration for medications other than Coumadin would seem appropriate to prevent future bleeding episodes. This will of course be managed by the medicine team. Admitting diagnosis: symptomatic anemia, acute renal failure, vaginal bleeding Condition: Critical Ehsan Titus MD Nov 19, 2016 19:02
[2016-11-19] MEDS: PRAVASTATIN SOD 80 MG TAB PO SCH (21:57)
[2016-11-19] MEDS: SODIUM CHLORIDE 0.9% FLUSH 10 ML FLUSH IV FLUSH SCH (21:57)
[2016-11-19] MEDS: FERROUS SULFATE 325 MG (65 MG ELEMENTAL IRON) TAB PO SCH (21:57)
[2016-11-20] MEDS: SODIUM CHLOR 0.9% 1000 ML INJ 1,000 ML IV SCH ×3 (01:41→23:52)
[2016-11-20 02:14] VITALS: BP 136/79; PULSE 82; RESP 18; TEMP 97.4; O2SAT 100
[2016-11-20 05:55] VITALS: BP 116/76; PULSE 74; RESP 16; TEMP 96.8; O2SAT 100
[2016-11-20] MEDS: LEVOTHYROXINE SODIUM 100 MCG TAB PO SCH (06:20)
[2016-11-20 08:00] VITALS: BP 163/86; PULSE 83; RESP 18; TEMP 96; O2SAT 100
[2016-11-20 08:09] LABS: AUTOMATED NEUTROPHIL # 4.1 TH/MM3 (1.8-7.7); BASOPHIL # 0.1 TH/MM3 (0-0.2); BASOPHIL % 0.8 % (0.0-2.0); EOSINOPHIL # 0.1 TH/MM3 (0-0.4); EOSINOPHIL % 1.8 % (0.0-4.0); HEMATOCRIT 26.1 % (35.0-46.0); HEMO FLAGS DIFF FINAL; INTERNATIONAL NORMALIZED RATIO 2.8 RATIO; LYMPH % 32.1 % (9.0-44.0); LYMPHOCYTE # 2.3 TH/MM3 (1.0-4.8); MEAN CELL VOLUME 82.6 FL (80.0-100.0); MEAN CORPUSCULAR HGB CONC 32.7 % (32.0-36.0); MONO % 9.1 % (0.0-8.0); NEUT % 56.2 % (16.0-70.0); PLATELET COUNT 175 TH/MM3 (150-450); PROTHROMBIN TIME - PATIENT 32.6 SEC (9.8-11.6); RED BLOOD COUNT 3.16 MIL/MM3 (4.00-5.30); RED CELL DISTRIBUTION WIDTH 15.4 % (11.6-17.2); WHITE BLOOD COUNT 7.3 TH/MM3 (4.0-11.0)
[2016-11-20 08:39] LABS: ALKALINE PHOSPHATASE 69 U/L (45-117); ALT (GPT) 10 U/L (10-53); ANION GAP 8 MEQ/L (5-15); BICARBONATE 23.3 MEQ/L (21.0-32.0); BLOOD UREA NITROGEN 47 MG/DL (7-18); CHLORIDE 108 MEQ/L (98-107); GLOMERULAR FILTRATION RATE 27 ML/MIN (>89); SODIUM (NA) 139 MEQ/L (136-145); TOTAL BILIRUBIN ADULT 0.5 MG/DL (0.2-1.0)
[2016-11-20 08:40] LABS: AST (GOT) 25 U/L (15-37); POTASSIUM 4.9 MEQ/L (3.5-5.1)
[2016-11-20] MEDS: SODIUM CHLORIDE 0.9% FLUSH 10 ML FLUSH IV FLUSH SCH ×2 (09:00→21:00)
[2016-11-20] MEDS: FLUDROCORTISONE ACETATE 0.1 MG TAB PO SCH (09:20)
[2016-11-20] MEDS: FERROUS SULFATE 325 MG (65 MG ELEMENTAL IRON) TAB PO SCH ×2 (09:22→22:11)
[2016-11-20] MEDS: amLODIPine BESYLATE 5 MG TAB PO SCH (09:22)
[2016-11-20] MEDS: GABAPENTIN 400 MG CAP PO SCH ×2 (09:22→22:11)
[2016-11-20] MEDS: LISINOPRIL 20 MG TAB PO SCH (09:22)
[2016-11-20] MEDS: CITALOPRAM HYDROBROMIDE 40 MG TAB PO SCH (09:23)
[2016-11-20] MEDS: medroxyPROGESTERone ACETATE 10 MG TAB PO SCH (09:23)
[2016-11-20] MEDS: risperiDONE 1 MG TAB PO SCH (09:24)
--- NOTE | 2016-11-20 10:41 | HHI.FPPN ---
Subjective Remarks No acute events overnight patient feels relatively well this morning. She is tolerating breakfast without issues. Per the nursing staff, she did have one "ping-pong sized" clot pass vaginally overnight, otherwise no new evidence of bleeding. She did receive 2 units PRBCs and blood work is pending this morning. She denies any chest pain or palpitations, denies abdominal pain, denies lightheadedness/dizziness, denies nausea or vomiting. She has not been out of bed yet today. In summary this is a 56-year-old female presenting to the emergency department with generalized weakness and blood clots passing vaginally. She states that she began feeling fatigued approximately 4 weeks ago and has progressively been getting worse, she is on anticoagulation with Coumadin and was noted to pass several blood clots vaginally over the course of the last several days and was brought into the emergency department for further evaluation. She was found to be anemic with acute renal failure and supratherapeutic on her anticoagulation in the emergency department and was admitted for further workup of her anemia, vaginal bleeding, and acute renal failure Past Medical History Per EMR L femur fracture as/B percutaneous pinning 08/2016 CVA X3 lupus diabetes mellitus II, on metformin hypothyroidism, hypertension, arthritis, hyperlipidemia, depression/anxiety, restless leg syndrome, Rotator cuff tear: Fall 2014 Past Surgical History percutaneous pinning of L femur fx 08/2016 Cholecystectomy 1996 Right oophero salpingectomy 1996 Family History Father's at 63 of throat and tongue cancer Mother is at 55 cardiac complications One sister has cardiac disease and hypertension Social History Tobacco: Denies Alcohol: Denies Drugs: Denies 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 Objective Vitals Vital Signs Date Time Temp Pulse Resp B/P Pulse Ox O2 Delivery O2 Flow Rate FiO2 11/20/16 08:00 96.0 83 18 163/86 100 11/20/16 06:53 20 11/20/16 05:55 96.8 74 16 116/76 100 11/20/16 02:14 97.4 82 18 136/79 100 11/19/16 22:39 98.0 83 20 115/68 100 11/19/16 22:22 98.0 83 19 101/60 100 11/19/16 20:00 97.2 85 18 98/62 98 11/19/16 16:05 98.2 97 13 105/67 98 Room Air 11/19/16 15:39 98.3 97 17 103/74 97 11/19/16 13:56 98.2 94 12 111/67 95 11/19/16 13:10 14 96 Room Air 11/19/16 11:45 98.9 106 28 106/63 94 Room Air I/O 11/19/16 11/19/16 11/19/16 11/20/16 11/20/16 11/20/16 07:00 15:00 23:00 07:00 15:00 23:00 Intake Total 370 ml Balance 370 ml Intake IV Total 120 ml Packed Cells 250 ml # Sanitary Pads 1 Pads Result Diagram: 11/20/16 0710 11/20/16 0710 Imaging Last [address] 11/19/16 1156 Signed Impressions: Service Date/Time: Saturday, November 19, 2016 13:23 - CONCLUSION: 1. No acute hemorrhage or mass effect. 2. Stable small meningioma again noted along the right parietal convexities. 3. Atrophy and old lacunar infarcts. Shan Cardenas MD Chest X-Ray 11/19/16 0000 Signed Impressions: Service Date/Time: Saturday, November 19, 2016 13:28 - CONCLUSION: No acute disease. Shan Cardenas MD Objective Remarks GENERAL: Pleasant but chronically ill-appearing female, lying in bed in no obvious distress SKIN: Stage 1 pressure ulcer on the sacrum, skin is intact there is some erythema and tenderness HEAD: Atraumatic. Normocephalic. NECK: Trachea midline. No JVD or lymphadenopathy. Supple, nontender, no meningeal signs. CARDIOVASCULAR: Regular rate and rhythm without murmurs, gallops, or rubs. RESPIRATORY: Clear to auscultation. Breath sounds equal bilaterally. No wheezes , rales, or rhonchi. GASTROINTESTINAL: Abdomen soft, non-tender, nondistended. MUSCULOSKELETAL: Extremities without clubbing, cyanosis, or edema. NEUROLOGICAL: Awake and alert 3. Cranial nerves II through XII intact. Slow speech. Poor effort, but appears to have 4 or 5 strength on the right side. Right-sided facial droop. This looks to be unchanged from previous exams. A/P Assessment and Plan 56-year-old female with previous history of abnormal vaginal bleeding returns with supratherapeutic INR at 3.4, and continued vaginal bleeding passing large clots. Previous transvaginal ultrasound revealed endometrial stripe less than 3. She will be admitted for red blood cell transfusion, gynecology consult. Problem List: (1) Vaginal bleeding, abnormal Status: Acute Plan: Likely secondary to supratherapeutic INR of 3.4 on arrival INVESTMENT COUNSELOR consulted, appreciate evaluation and recommendations - INVESTMENT COUNSELOR reviewed previous ultrasound that showed fibroids and 3 mm endometrial stripe, does not feel the fibroids are contributing to vaginal bleeding - Provera 10 mg by mouth daily until Coumadin in therapeutic range, then continue for 14 days Monitor daily CBCs and transfuse as needed Counseled importance of following with a INVESTMENT COUNSELOR as an outpatient INR 2.8 this morning, continue to hold Coumadin until INR is closer to 2 - Consider beginning novel anticoagulant such as Xarelto once INR drops below 2 or continue Coumadin with goal INR closer to 2 with very close monitoring (2) Anemia Status: Chronic Plan: On admission hemoglobin was 7.0, currently it is 8.5 status post 2 units PRBCs Transfuse 2 units PRBCs on 11/19 and treatment as above for vaginal bleeding - Monitor daily CBCs and transfuse as needed (3) Acute renal failure Status: Acute Plan: Improved today, creatinine 1.93 (down from 2.97 on arrival) - Baseline creatinine in the normal range Likely due to hypoperfusion from anemia - Status post 2 units PRBC transfusion - IV fluids with normal saline at 100 mL/hour after 1 L normal saline bolus in the emergency department (4) Supratherapeutic INR Status: Acute Plan: Currently holding Coumadin - Did not receive any reversal agents in the emergency department INR 2.8 this morning 11/20/16 - We'll hold Coumadin again today - Recheck INR in the morning of 11/21 - Consider beginning novel anticoagulant such as Xarelto versus continuing Coumadin with a goal INR of closer to 2.0 with close monitoring (5) Pressure ulcer Status: Acute Plan: Physical exam, and history reveals stage I/2 pressure ulcer at the sacrum , and bilateral ankle. Wound care nurse consulted. Offload areas as able. (6) History of CVA (cerebrovascular accident) Status: Chronic Plan: History of CVA 3 with persistent right-sided deficits. Hold Coumadin and aspirin given acute bleeding. Follows with neurology as an outpatient. (7) FEN/PPX Status: Acute Plan: Fluids: Normal saline at 100 mg per hour. Electrolytes: Monitor and replace when necessary Nutrition: Regular diet as tolerated. Prophylaxis: Supratherapeutic INR. Holding Coumadin. Bilateral SCDs Chronic medical problems: History of CVA: See above regarding warfarin management. Type 2 diabetes: Hold home metformin. Sliding scale insulin while inpatient. Recent femoral neck fracture: We'll provide PT while inpatient. Morphine 2 mg every 3 hours when necessary pain 6-10. Depression: Continue home citalopram 40 mg by mouth daily. Vitamin D deficiency: Continue current management as an outpatient. Hyperlipidemia: Continue simvastatin. Hypothyroidism: Continue levothyroxine 100 MCG daily Hypertension: Amlodipine 5 mg by mouth daily; she does have a history of labile blood pressures. Carefully monitor. History of adrenal insufficiency: Further workup with endocrinology was recommended as an outpatient. Continue fludrocortisone 0.1 mg by mouth daily. Problem Qualifiers (1) Anemia: Qualified Code: D64.9 - Anemia, unspecified type (2) Acute renal failure: Qualified Code: N17.9 - Acute renal failure, unspecified acute renal failure type Julius Mcnamara MD Nov 20, 2016 10:41
[2016-11-20 12:00] VITALS: BP 96/67; PULSE 79; RESP 18; TEMP 96.9; O2SAT 99
[2016-11-20 16:00] VITALS: BP 120/82; PULSE 74; RESP 16; TEMP 96; O2SAT 98
[2016-11-20 18:58] LABS: HEMATOCRIT 24.6 % (35.0-46.0); REVIEW FLAG FINAL
--- NOTE | 2016-11-20 19:21 | HHI.PR ---
Addendum to Inpatient Note Addendum Reason: Additional Documentation Additional Information S: Called to evaluate patient because of concern expressed by regarding patient. According to the patient's , at 7 AM this morning, patient was awake and alert, but she has become progressively lethargic and unarousable. He reports that this is something that happens increasingly often to his . He reports that it is almost impossible to wake her up from sleep and any response from her is mumbled. However, this is been happening with increased frequency ever since her strokes. From the strokes, patient has residual right upper extremity, right lower extremity, right-sided facial droop, slurred speech. Since strokes, she has had increasing short-term and senior living memory loss. She had CT in the emergency department which did not show any significant new changes in her brain. is tearful and curious about his 's prognosis. He asked how long she might have to live given her many impairments in her activities of daily living. O: Vital Signs Date Time Temp Pulse Resp B/P Pulse Ox O2 Delivery O2 Flow Rate FiO2 11/20/16 16:00 96.0 74 16 120/82 98 11/19/16 16:05 Room Air Gen: Patient is asleep and very difficult to arouse. CV: Regular rate and rhythm, 2+ radial pulses Respiratory: No increased work of breathing, no signs of resp distress GI: Soft, nontender, nondistended. : catheter in place Extremities: No significant edema noted Neuro: No eye opening, but PERRL, and she does react to sternal rub with flexion and some withdrawal and will mumble in response to questioning after painful stimulus, but she goes back to sleep quickly and will not open her eyes or follow commands. Patient spontaneously moves her left side, but not her right. A/P: 36-year-old woman with a history of strokes with residual right-sided weakness presented to ED with vaginal bleeding in the context of uterine fibroids and being supratherapeutic on Coumadin now p/w unarousable sleepiness, progressive AMS over the course of the day. ED work up showed normal CXR, dirty UA. Urine culture grew: >100,000 CFU/ML MIXED GRAM NEGATIVE STELLA X3 MORPHOLOGIES In urine culture, pt has h/o: E. faecalis res to Ciprofloxacin, linezolid, TCN, E. coli res to TCN, staph aureus res to Levofloxacin, Staph capitus ureolyticus res to clindamycin and erythromycin. Given that her PCN allergy reaction is rash and low cross-reactivity with third-generation cephalosporins, and all her previous organisms are PCN sensitive, will treat with: --Ceftriaxone 1g IV to be continued per the discretion of the primary team. Fingerstick blood glucose of 90 H&H, BMP Neuro check every 4 hours Consider palliative care consult for end-of-life planning Shan Garcia MD R1 Nov 20, 2016 19:21
[2016-11-20 19:25] LABS: BICARBONATE 22.8 MEQ/L (21.0-32.0); POTASSIUM 4.4 MEQ/L (3.5-5.1)
--- NOTE | 2016-11-20 19:30 | EKG ---
Date Performed: 11/19/2016 Time Performed: 12:11:42 PTAGE: 56 years EKG: SINUS TACHYCARDIA ABNORMAL RHYTHM ECG PREVIOUS TRACING : 10/23/2016 11.26 Compared to prior tracing no significant change DOCTOR: Angelica Sotomayor Interpretating Date/Time 11/20/2016 19:29:37
[2016-11-20 20:00] VITALS: BP 95/57; PULSE 72; RESP 16; TEMP 97.5; O2SAT 100
[2016-11-20] MEDS: PRAVASTATIN SOD 80 MG TAB PO SCH (22:11)
[2016-11-20] MEDS: cefTRIAXone INJ 1,000 MG in SODIUM CHLORIDE 0.9% INJ 100 ML IV SCH (23:54)
[2016-11-21] VITALS (8 sets, daily range): BP systolic 103–156; BP diastolic 64–77; PULSE 64–80; RESP 15–20; TEMP 96.1–98.6; O2SAT 96–100
[2016-11-21] MEDS: LEVOTHYROXINE SODIUM 100 MCG TAB PO SCH (05:58)
[2016-11-21] MEDS: FERROUS SULFATE 325 MG (65 MG ELEMENTAL IRON) TAB PO SCH ×2 (07:55→20:13)
[2016-11-21] MEDS: FLUDROCORTISONE ACETATE 0.1 MG TAB PO SCH (07:55)
[2016-11-21] MEDS: amLODIPine BESYLATE 5 MG TAB PO SCH (07:55)
[2016-11-21] MEDS: medroxyPROGESTERone ACETATE 10 MG TAB PO SCH (07:56)
[2016-11-21] MEDS: GABAPENTIN 400 MG CAP PO SCH ×2 (07:56→20:13)
[2016-11-21] MEDS: CITALOPRAM HYDROBROMIDE 40 MG TAB PO SCH (07:56)
[2016-11-21] MEDS: LISINOPRIL 20 MG TAB PO SCH (07:56)
[2016-11-21] MEDS: risperiDONE 1 MG TAB PO SCH (07:56)
[2016-11-21] MEDS: SODIUM CHLORIDE 0.9% FLUSH 10 ML FLUSH IV FLUSH SCH ×2 (07:56→20:15)
--- NOTE | 2016-11-21 10:39 | HHI.FPPN ---
Subjective Remarks at bedside. Overnight patient was evaluated for increased lethargy. This morning, patient feels better. She still feels tired, but feels she is improving. Denies fever, chills, nausea, vomiting. (Ralf Trinidad MD R2) Objective Vitals Vital Signs Date Time Temp Pulse Resp B/P Pulse Ox O2 Delivery O2 Flow Rate FiO2 11/21/16 07:48 97.9 73 18 156/77 98 11/21/16 04:00 96.1 69 16 112/70 100 11/21/16 00:00 96.8 64 15 103/64 100 11/20/16 20:00 97.5 72 16 95/57 100 11/20/16 16:00 96.0 74 16 120/82 98 11/20/16 12:00 96.9 79 18 96/67 99 I/O 11/20/16 11/20/16 11/20/16 11/21/16 11/21/16 11/21/16 07:00 15:00 23:00 07:00 15:00 23:00 Intake Total 480 ml 2207 ml Output Total 850 ml Balance -370 ml 2207 ml Intake Oral 480 ml IV Total 2207 ml Output Urine Total 850 ml # Bowel Movements 2 # Sanitary Pads 1 Pads 1 Pads 1 Pads (Ralf Trinidad MD R2) Result Diagram: 11/20/16181711/20/161817 Objective Remarks GENERAL: Pleasant but chronically ill-appearing female, lying in bed in no obvious distress SKIN: Stage 1 pressure ulcer on the sacrum, skin is intact there is some erythema and tenderness HEAD: Atraumatic. Normocephalic. NECK: Trachea midline. No JVD or lymphadenopathy. Supple, nontender, no meningeal signs. CARDIOVASCULAR: Regular rate and rhythm without murmurs, gallops, or rubs. RESPIRATORY: Clear to auscultation. Breath sounds equal bilaterally. No wheezes , rales, or rhonchi. GASTROINTESTINAL: Abdomen soft, non-tender, nondistended. MUSCULOSKELETAL: Extremities without clubbing, cyanosis, or edema. NEUROLOGICAL: Awake and alert 3. Cranial nerves II through XII intact. Slow speech. Poor effort, but appears to have 4 or 5 strength on the right side. Right-sided facial droop. This looks to be unchanged from previous exams. ( Ralf Trinidad MD R2) A/P Assessment and Plan 56-year-old female with previous history of abnormal vaginal bleeding returns with supratherapeutic INR at 3.4, and continued vaginal bleeding passing large clots. Previous transvaginal ultrasound revealed endometrial stripe less than 3. She will be admitted for red blood cell transfusion, gynecology consult. Palliative consulted to help with goal clarification and symptom management Discharge Planning Pending clinical improvement. PT recommends PT with home health (however, patient may have more demanding needs). (Ralf Trinidad MD R2) Attending Attestation Pt. examined and case discussed with resident physician I have read the above note and agree with the assessment/plan as discussed with me I was involved in all medical decision making for this patient Julius Mcnamara MD (Julius Mcnamara MD) Problem List: (1) Vaginal bleeding, abnormal Status: Acute Plan: Likely secondary to supratherapeutic INR of 3.4 on arrival MARGIN ANALYST consulted, appreciate evaluation and recommendations - MARGIN ANALYST reviewed previous ultrasound that showed fibroids and 3 mm endometrial stripe, does not feel the fibroids are contributing to vaginal bleeding - Provera 10 mg by mouth daily until Coumadin in therapeutic range, then continue for 14 days Monitor daily CBCs and transfuse as needed Counseled importance of following with a MARGIN ANALYST as an outpatient INR 2.8 on 11/20, continue to hold Coumadin until INR is closer to 2 - INR pending 11/21 - Consider beginning novel anticoagulant such as Xarelto once INR drops below 2 or continue Coumadin with goal INR closer to 2 with very close monitoring (2) Recurrent UTI Status: Acute Plan: Patient has a history of frequent UTIs. 11/19 urine culture showing gram-negative jessy. Continue to follow culture and sensitivities Continue ceftriaxone 1 g every 24 hours (started 11/20) (3) Anemia Status: Chronic Plan: On admission hemoglobin was 7.0, 8.5 after transfusion. H&H pending this a.m. Transfuse 2 units PRBCs on 11/19 and treatment as above for vaginal bleeding - Monitor daily CBCs and transfuse as needed (4) Acute renal failure Status: Acute Plan: Improving. Creatinine 1.39 on 11/20 (5) Supratherapeutic INR Status: Acute Plan: Currently holding Coumadin -INR 11/20 is 2.8 - Recheck INR in the morning of 11/21 pending - Consider beginning novel anticoagulant such as Xarelto versus continuing Coumadin with a goal INR of closer to 2.0 with close monitoring (6) Pressure ulcer Status: Acute Plan: Physical exam, and history reveals stage I/2 pressure ulcer at the sacrum , and bilateral ankle. Wound care nurse consulted. Offload areas as able. (7) History of CVA (cerebrovascular accident) Status: Chronic Plan: History of CVA 3 with persistent right-sided deficits. Holding Coumadin and aspirin given acute bleeding. Follows with neurology as an outpatient. (8) FEN/PPX Status: Acute Plan: Fluids: Normal saline at 100 mg per hour. Electrolytes: Monitor and replace when necessary Nutrition: Regular diet as tolerated. Prophylaxis: Supratherapeutic INR. Holding Coumadin. Bilateral SCDs Chronic medical problems: History of CVA: See above regarding warfarin management. Type 2 diabetes: Hold home metformin. Sliding scale insulin while inpatient. Recent femoral neck fracture: We'll provide PT while inpatient. Morphine 2 mg every 3 hours when necessary pain 6-10. Depression: Continue home citalopram 40 mg by mouth daily. Vitamin D deficiency: Continue current management as an outpatient. Hyperlipidemia: Continue simvastatin. Hypothyroidism: Continue levothyroxine 100 MCG daily Hypertension: Amlodipine 5 mg by mouth daily; she does have a history of labile blood pressures. Carefully monitor. History of adrenal insufficiency: Further workup with endocrinology was recommended as an outpatient. Continue fludrocortisone 0.1 mg by mouth daily. (Ralf Trinidad MD R2) Problem Qualifiers (1) Anemia: Qualified Code: D64.9 - Anemia, unspecified type (2) Acute renal failure: Qualified Code: N17.9 - Acute renal failure, unspecified acute renal failure type Ralf Trinidad MD R2 Nov 21, 2016 10:39 Julius Mcnamara MD Nov 21, 2016 21:32
[2016-11-21] MEDS: SODIUM CHLOR 0.9% 1000 ML INJ 1,000 ML IV SCH ×2 (11:35→20:15)
[2016-11-21 12:19] LABS: INTERNATIONAL NORMALIZED RATIO 2.1 RATIO; PROTHROMBIN TIME - PATIENT 24.1 SEC (9.8-11.6)
[2016-11-21 12:34] LABS: BICARBONATE 24.2 MEQ/L (21.0-32.0); POTASSIUM 3.9 MEQ/L (3.5-5.1)
[2016-11-21 15:16] LABS: AUTOMATED NEUTROPHIL # 3.9 TH/MM3 (1.8-7.7); BASOPHIL # 0.1 TH/MM3 (0-0.2); BASOPHIL % 0.8 % (0.0-2.0); EOSINOPHIL # 0.1 TH/MM3 (0-0.4); HEMATOCRIT 25.6 % (35.0-46.0); HEMO FLAGS DIFF FINAL; LYMPH % 27.5 % (9.0-44.0); LYMPHOCYTE # 1.7 TH/MM3 (1.0-4.8); MEAN CELL VOLUME 83.3 FL (80.0-100.0); MEAN CORPUSCULAR HEMOGLOBIN 27.2 PG (27.0-34.0); MEAN CORPUSCULAR HGB CONC 32.7 % (32.0-36.0); MONO % 7.4 % (0.0-8.0); NEUT % 62.3 % (16.0-70.0); PLATELET COUNT 173 TH/MM3 (150-450); RED BLOOD COUNT 3.07 MIL/MM3 (4.00-5.30); RED CELL DISTRIBUTION WIDTH 15.4 % (11.6-17.2); WHITE BLOOD COUNT 6.3 TH/MM3 (4.0-11.0)
[2016-11-21] MEDS: PRAVASTATIN SOD 80 MG TAB PO SCH (20:13)
[2016-11-21] MEDS: cefTRIAXone INJ 1,000 MG in SODIUM CHLORIDE 0.9% INJ 100 ML IV SCH (23:16)
[2016-11-22] VITALS (7 sets, daily range): BP systolic 115–163; BP diastolic 66–91; PULSE 72–80; RESP 16–18; TEMP 97–99.1; O2SAT 96–98
[2016-11-22] MEDS: SODIUM CHLOR 0.9% 1000 ML INJ 1,000 ML IV SCH ×2 (05:57→15:52)
[2016-11-22] MEDS: LEVOTHYROXINE SODIUM 100 MCG TAB PO SCH (05:58)
[2016-11-22 08:02] LABS: AUTOMATED NEUTROPHIL # 4.3 TH/MM3 (1.8-7.7); BASOPHIL % 0.5 % (0.0-2.0); EOSINOPHIL # 0.1 TH/MM3 (0-0.4); EOSINOPHIL % 1.8 % (0.0-4.0); HEMATOCRIT 23.8 % (35.0-46.0); HEMO FLAGS DIFF FINAL; LYMPH % 25.5 % (9.0-44.0); LYMPHOCYTE # 1.7 TH/MM3 (1.0-4.8); MEAN CELL VOLUME 81.8 FL (80.0-100.0); MEAN CORPUSCULAR HEMOGLOBIN 26.9 PG (27.0-34.0); MEAN CORPUSCULAR HGB CONC 32.8 % (32.0-36.0); MONO % 7.8 % (0.0-8.0); NEUT % 64.4 % (16.0-70.0); PLATELET COUNT 170 TH/MM3 (150-450); RED CELL DISTRIBUTION WIDTH 14.8 % (11.6-17.2); WHITE BLOOD COUNT 6.7 TH/MM3 (4.0-11.0)
--- NOTE | 2016-11-22 08:04 | HHI.FPPN ---
Subjective Remarks Patient seen and examined this morning. Vitals are stable she's afebrile. Hemoglobin stable. Feeling well this am, eating her breakfast and taking morning pills by mouth. Family expresses desire to go home. Feel comfortable with home health. Vaginal bleeding has resolved, started on xarelto this am. Objective Vitals Vital Signs Date Time Temp Pulse Resp B/P Pulse Ox O2 Delivery O2 Flow Rate FiO2 11/22/16 04:00 98.6 72 17 118/66 97 11/21/16 23:39 98.6 69 17 117/67 96 11/21/16 20:03 68 11/21/16 20:00 96.5 80 18 140/72 100 11/21/16 16:00 97.1 73 16 109/65 99 11/21/16 12:00 98.3 73 20 120/66 98 I/O 11/21/16 11/21/16 11/21/16 11/22/16 11/22/16 11/22/16 07:00 15:00 23:00 07:00 15:00 23:00 Intake Total 2207 ml 480 ml 1670 ml 1220 ml Output Total 750 ml 600 ml 450 ml Balance 2207 ml -270 ml 1070 ml 770 ml Intake Oral 480 ml 240 ml 240 ml IV Total 2207 ml 1430 ml 980 ml Output Urine Total 750 ml 600 ml 450 ml # Bowel Movements 2 0 # Sanitary Pads 1 Pads Result Diagram: 11/21/16 1426 11/21/16 1040 Imaging Last Impressions Head CT 11/19/16 1156 Signed Impressions: Service Date/Time: Saturday, November 19, 2016 13:23 - CONCLUSION: 1. No acute hemorrhage or mass effect. 2. Stable small meningioma again noted along the right parietal convexities. 3. Atrophy and old lacunar infarcts. Shan Cardenas MD Chest X-Ray 11/19/16 0000 Signed Impressions: Service Date/Time: Saturday, November 19, 2016 13:28 - CONCLUSION: No acute disease. Shan Cardenas MD Objective Remarks GENERAL: Pleasant but chronically ill-appearing female, lying in bed in no obvious distress SKIN: Stage 1 pressure ulcer on the sacrum, skin is intact there is some erythema and tenderness HEAD: Atraumatic. Normocephalic. NECK: Trachea midline. No JVD or lymphadenopathy. Supple, nontender, no meningeal signs. CARDIOVASCULAR: Regular rate and rhythm without murmurs, gallops, or rubs. RESPIRATORY: Clear to auscultation. Breath sounds equal bilaterally. No wheezes , rales, or rhonchi. GASTROINTESTINAL: Abdomen soft, non-tender, nondistended. MUSCULOSKELETAL: Extremities without clubbing, cyanosis, or edema. NEUROLOGICAL: Awake and alert 3. Slow speech. Poor effort, but appears to have 4 or 5 strength on the right side. Right-sided facial droop. This looks to be unchanged from previous exams. A/P Assessment and Plan 56-year-old female with previous history of abnormal vaginal bleeding returns with supratherapeutic INR at 3.4, and continued vaginal bleeding passing large clots. Previous transvaginal ultrasound revealed endometrial stripe less than 3. She will be admitted for red blood cell transfusion, gynecology consult. Palliative consulted to help with goal clarification and symptom management Discharge Planning Home today with home health. Discussed with Dr. Mcnamara, patient's , and nurse at bedside. Problem List: (1) Vaginal bleeding, abnormal Status: Resolved Plan: Resolved. Likely secondary to supratherapeutic INR of 3.4 on arrival RESIDENCE LIFE DIRECTOR consulted, appreciate evaluation and recommendations - RESIDENCE LIFE DIRECTOR reviewed previous ultrasound that showed fibroids and 3 mm endometrial stripe, does not feel the fibroids are contributing to vaginal bleeding - Provera 10 mg by mouth daily until Coumadin in therapeutic range, then continue for 14 days Monitor daily CBCs and transfuse as needed Counseled importance of following with a RESIDENCE LIFE DIRECTOR as an outpatient INR 2.8 on 11/20, continue to hold Coumadin until INR is closer to 2 - INR 11/21 2.1 - Started on xarelto this am. (2) Recurrent UTI Status: Acute Plan: Patient has a history of frequent UTIs. 11/19 urine culture showing gram-negative jessy. Continue ceftriaxone 1 g every 24 hours (started 11/20-11/22) Will d/c on keflex (3) Anemia Status: Chronic Plan: Resolved. On admission hemoglobin was 7.0, 8.5 after transfusion. History: Transfuse 2 units PRBCs on 11/19 and treatment as above for vaginal bleeding - Monitor daily CBCs and transfuse as needed (4) Acute renal failure Status: Resolved Plan: Improving. (5) Supratherapeutic INR Status: Acute Plan: Currently holding Coumadin - INR 4/30 is 2.1 - \Started on xarelto today (6) Pressure ulcer Status: Acute Plan: Physical exam, and history reveals stage I/2 pressure ulcer at the sacrum , and bilateral ankle. Wound care nurse consulted. Offload areas as able. (7) History of CVA (cerebrovascular accident) Status: Chronic Plan: History of CVA 3 with persistent right-sided deficits. Holding Coumadin and aspirin given acute bleeding. Follows with neurology as an outpatient. (8) FEN/PPX Status: Acute Plan: Fluids: HLIV Electrolytes: Monitor and replace when necessary Nutrition: Regular diet as tolerated. Prophylaxis: Xarelto Chronic medical problems: History of CVA: See above regarding warfarin management. Type 2 diabetes: Hold home metformin. Sliding scale insulin while inpatient. Recent femoral neck fracture: We'll provide PT while inpatient. Morphine 2 mg every 3 hours when necessary pain 6-10. Depression: Continue home citalopram 40 mg by mouth daily. Vitamin D deficiency: Continue current management as an outpatient. Hyperlipidemia: Continue simvastatin. Hypothyroidism: Continue levothyroxine 100 MCG daily Hypertension: Amlodipine 5 mg by mouth daily; she does have a history of labile blood pressures. Carefully monitor. History of adrenal insufficiency: Further workup with endocrinology was recommended as an outpatient. Continue fludrocortisone 0.1 mg by mouth daily. Problem Qualifiers (1) Anemia: Qualified Code: D64.9 - Anemia, unspecified type (2) Acute renal failure: Qualified Code: N17.9 - Acute renal failure, unspecified acute renal failure type Jerrica Golden MD R3 November 22, 2016 08:04
[2016-11-22] MEDS: LISINOPRIL 20 MG TAB PO SCH (08:16)
[2016-11-22] MEDS: FERROUS SULFATE 325 MG (65 MG ELEMENTAL IRON) TAB PO SCH ×2 (08:16→20:08)
[2016-11-22] MEDS: FLUDROCORTISONE ACETATE 0.1 MG TAB PO SCH (08:17)
[2016-11-22] MEDS: amLODIPine BESYLATE 5 MG TAB PO SCH (08:17)
[2016-11-22] MEDS: medroxyPROGESTERone ACETATE 10 MG TAB PO SCH (08:17)
[2016-11-22] MEDS: GABAPENTIN 400 MG CAP PO SCH ×2 (08:17→20:08)
[2016-11-22] MEDS: risperiDONE 1 MG TAB PO SCH (08:17)
[2016-11-22] MEDS: CITALOPRAM HYDROBROMIDE 40 MG TAB PO SCH (08:17)
[2016-11-22] MEDS: SODIUM CHLORIDE 0.9% FLUSH 10 ML FLUSH IV FLUSH SCH ×2 (08:19→20:08)
[2016-11-22 08:28] LABS: ALT (GPT) 7 U/L (10-53); ANION GAP 8 MEQ/L (5-15); AST (GOT) 9 U/L (15-37); BLOOD UREA NITROGEN 25 MG/DL (7-18); CHLORIDE 111 MEQ/L (98-107); GLOMERULAR FILTRATION RATE 61 ML/MIN (>89); POTASSIUM 3.6 MEQ/L (3.5-5.1); SODIUM (NA) 143 MEQ/L (136-145)
[2016-11-22 08:30] LABS: ALKALINE PHOSPHATASE 70 U/L (45-117); TOTAL BILIRUBIN ADULT 0.2 MG/DL (0.2-1.0)
--- NOTE | 2016-11-22 08:48 | HHI.FF ---
Face to Face Verification Diagnosis: (1) Creatinine elevation (2) Vaginal bleeding Physical Therapy Order: Evaluate and Treat, Improve ambulation, Strength and gait training Occupational Therapy Order: Evaluate and Treat, Improve ADL, Gross motor coordination, Fine motor coordination Home Health Nursing Order: Medical education Signs/symptoms of disease process Diabetic education Oxygen administration education Medication education-adverse effect Nursing assessment with vital signs I have seen patient Jennie Velasquez on 11/22/16. My clinical findings support the need for the requested home health care services because: Ltd mobility - disease progression Deconditioned w/ increased weakness Limited ability to care for self I certify that my clinical findings support that this patient is homebound because: Unsteady gait/balance Unsafe to leave home unassisted Jerrica Golden MD R3 November 22, 2016 08:48
[2016-11-22] MEDS ORDERED: RIVAROXABAN 20 MG TAB PO SCH (09:00)
--- NOTE | 2016-11-22 16:02 | HHI.HCPN ---
Palliative care consult this morning, discharge order pending, spoke with heel caser at 4pm to check status. Patient is no longer up for discharge. Palliative care consult will be completed on 11-23-16. Lizy Borges, APPLIANCE REPAIR TECHNICIAN November 22, 2016 16:02
--- NOTE | 2016-11-22 17:48 | PD.CONS ---
HPI History of Present Illness This is a 56 year old [lady] with hx CVA x 2, dementia, and abnormal vaginal bleeding. She was hospitalized for anemia. She is poor historian and most of hx obtained from her who is her caregiver and decision maker. Per her she has been having vaginal bleeding with clots. She was found to have supratherapeutic INR. She has been having black tarry "pudding" consistency stools for a week. Her RN noticed black stool this morning as well. Hemoccult pos 11/22. She has been on iron supplement for last month. No hx prior GI bleed per . She last had EGD/colonoscopy 08/24/16 for n/v and anemia. EGD 08/24---> gastric polyp, path hyperplastic polyp. Colonoscopy 08/24/16 ---> normal. She had an episode of hematemesis 6 to 9 months ago when she had a stomach bug but none since. No hx GERD. NO recent n/v or diarrhea. No abdominal pain. (Dacia Miranda) PFSH Past Medical History CVA X 2 most recent 2013 HTN DMII Lupus hypothyroid hyperlipidemia DEN Past Surgical History ORIF femur cholecystectomy removal ovary (Dacia Miranda) Coded Allergies: Penicillin (Verified Allergy, Severe, Rash, 10/23/16) Medications Current Medications Medications (Trade) Dose Ordered Sig/Anabela Route PRN Reason Start Time Stop Time Status Last Admin Dose Admin Sodium Chloride (NS 1000 ml Inj) 1,000 ml @ 100 mls/hr Q10H IV 11/19/16 17:52 11/22/16 15:52 Sodium Chloride (NS Flush) 2 ml UNSCH PRN IV FLUSH FLUSH AFTER USING IV ACCESS 11/19/16 18:00 Sodium Chloride (NS Flush) 2 ml BID IV FLUSH 11/19/16 21:00 11/21/16 20:15 Acetaminophen (Tylenol) 650 mg Q4H PRN PO TEMP > 100.4 11/19/16 18:00 Ondansetron HCl (Zofran Inj) 4 mg Q6H PRN IVP NAUSEA OR VOMITING 11/19/16 18:00 Magnesium Hydroxide (Milk Of Magnesia Liq) 30 ml Q12H PRN PO CONSTIPATION 11/19/16 18:00 Naloxone HCl (Narcan Inj) 0.4 mg UNSCH PRN IV SEE LABEL COMMENTS 11/19/16 18:00 Amlodipine Besylate (Norvasc) 5 mg DAILY PO 11/20/16 09:00 11/22/16 08:17 Citalopram Hydrobromide (CeleXA) 40 mg DAILY PO 11/20/16 09:00 11/22/16 08:17 Ferrous Sulfate (Ferrous Sulfate) 325 mg BID PO 11/19/16 21:00 11/22/16 08:16 Fludrocortisone Acetate (Florinef) 0.1 mg DAILY PO 11/20/16 09:00 11/22/16 08:17 Levothyroxine Sodium (Synthroid) 100 mcg DAILY@06 PO 11/20/16 06:00 11/22/16 05:58 Lisinopril (Prinivil) 40 mg DAILY PO BPM 11/20/16 09:00 11/22/16 08:16 Risperidone (risperDAL) 2 mg DAILY PO 11/20/16 09:00 11/22/16 08:17 Senna/Docusate Sodium (Skye-Colace) 2 tab BID PRN PO CONSTIPATION 11/19/16 18:00 Pravastatin Sodium (Pravachol) 80 mg HS PO CM 11/19/16 21:00 11/21/16 20:13 Morphine Sulfate (Morphine Inj) 1 mg Q3H PRN IV Pain 3-5; if unable to take PO 11/19/16 18:30 11/20/16 06:31 Morphine Sulfate (Morphine Inj) 2 mg Q3H PRN IV Pain 6-10;if unable to take PO 11/19/16 18:30 Naloxone HCl (Narcan Inj) 0.4 mg UNSCH PRN IV SEE LABEL COMMENTS 11/19/16 18:30 Medroxyprogesterone Acetate (Provera) 10 mg DAILY PO 11/20/16 09:00 11/22/16 08:17 Gabapentin 400 mg 400 mg BID PO 11/20/16 09:00 11/22/16 08:17 Ceftriaxone Sodium/Sodium Chloride (Rocephin Inj/NS Inj) 100 ml @ 200 mls/hr Q24H IV 11/21/16 00:00 11/21/16 23:16 Rivaroxaban (Xarelto) 20 mg DAILY PO 11/22/16 09:00 Hold 11/22/16 08:17 Family History father - oral ca mother - "bad heart", HTN Social History Occasional ETOH no illicit drug use, no tobacco use (Dacia Miranda) Review of Systems Constitutional: DENIES: Fever Eyes: DENIES: Blurred vision Ears, nose, mouth, throat: DENIES: Hearing loss Respiratory: DENIES: Cough Cardiovascular: DENIES: Chest pain Gastrointestinal: COMPLAINS OF: Black stools, DENIES: Abdominal pain, Bloody stools, Constipation, Diarrhea, Nausea, Vomiting, Swelling of Abdomen, Heartburn , Hematemesis Musculoskeletal: COMPLAINS OF: Joint pain (arthritis) Integumentary: DENIES: Abnormal pigmentation Hematologic/lymphatic: DENIES: Lymphadenopathy Psychiatric: COMPLAINS OF: Confusion (Dacia Miranda) GI Exam Vitals I&O Vital Signs Date Time Temp Pulse Resp B/P Pulse Ox O2 Delivery O2 Flow Rate FiO2 11/22/16 12:00 97.9 79 16 115/71 96 11/22/16 08:12 76 11/22/16 08:03 97.0 77 16 153/91 98 11/22/16 04:00 98.6 72 17 118/66 97 11/21/16 23:39 98.6 69 17 117/67 96 11/21/16 20:03 68 11/21/16 20:00 96.5 80 18 140/72 100 I/O 11/21/16 11/21/16 11/21/16 11/22/16 11/22/16 11/22/16 07:00 15:00 23:00 07:00 15:00 23:00 Intake Total 2207 ml 480 ml 1670 ml 1220 ml 792 ml Output Total 750 ml 600 ml 450 ml Balance 2207 ml -270 ml 1070 ml 770 ml 792 ml Intake Oral 480 ml 240 ml 240 ml IV Total 2207 ml 1430 ml 980 ml 792 ml Output Urine Total 750 ml 600 ml 450 ml # Bowel Movements 2 0 # Sanitary Pads 1 Pads Imaging Last Impressions Head CT 11/19/16 1156 Signed Impressions: Service Date/Time: Saturday, November 19, 2016 13:23 - CONCLUSION: 1. No acute hemorrhage or mass effect. 2. Stable small meningioma again noted along the right parietal convexities. 3. Atrophy and old lacunar infarcts. Shan Cardenas MD Chest X-Ray 11/19/16 0000 Signed Impressions: Service Date/Time: Saturday, November 19, 2016 13:28 - CONCLUSION: No acute disease. Shan Cardenas MD Laboratory Test 11/22/16 07:01 White Blood Count 6.7 TH/MM3 Red Blood Count 2.90 MIL/MM3 Hemoglobin 7.8 GM/DL Hematocrit 23.8 % Mean Corpuscular Volume 81.8 FL Mean Corpuscular Hemoglobin 26.9 PG Mean Corpuscular Hemoglobin 32.8 % Concent Red Cell Distribution Width 14.8 % Platelet Count 170 TH/MM3 Mean Platelet Volume 8.8 FL Neutrophils (%) (Auto) 64.4 % Lymphocytes (%) (Auto) 25.5 % Monocytes (%) (Auto) 7.8 % Eosinophils (%) (Auto) 1.8 % Basophils (%) (Auto) 0.5 % Neutrophils # (Auto) 4.3 TH/MM3 Lymphocytes # (Auto) 1.7 TH/MM3 Monocytes # (Auto) 0.5 TH/MM3 Eosinophils # (Auto) 0.1 TH/MM3 Basophils # (Auto) 0.0 TH/MM3 CBC Comment DIFF FINAL Differential Comment Sodium Level 143 MEQ/L Potassium Level 3.6 MEQ/L Chloride Level 111 MEQ/L Carbon Dioxide Level 24.0 MEQ/L Anion Gap 8 MEQ/L Blood Urea Nitrogen 25 MG/DL Creatinine 0.94 MG/DL Estimat Glomerular Filtration 61 ML/MIN Rate Random Glucose 86 MG/DL Calcium Level 8.5 MG/DL Total Bilirubin 0.2 MG/DL Aspartate Amino Transf 9 U/L (AST/SGOT) Alanine Aminotransferase 7 U/L (ALT/SGPT) Alkaline Phosphatase 70 U/L Total Protein 5.6 GM/DL Albumin 2.4 GM/DL Date/Time Procedure Status Source Growth 11/22/16 12:00 Stool Occult Blood (JANAE) - Final Complete Stool Stool HEMOCCULT POSITIVE 11/19/16 14:00 Urine Culture - Final Complete Urine Clean Catch Klebsiella Pneumoniae 11/19/16 13:05 Aerobic Blood Culture - Preliminary Resulted Blood Peripheral NO GROWTH IN 3 DAYS 11/19/16 13:05 Anaerobic Blood Culture - Preliminary Resulted Blood Peripheral NO GROWTH IN 3 DAYS Physical Examination HEENT: EOMI; normocephalic; atraumatic; no jaundice. CHEST: Chest is clear to auscultation and percussion. CARDIAC: Regular rate and rhythm with no murmur gallop or rubs. ABDOMEN: Soft, nondistended, nontender; no hepatosplenomegaly; bowel sounds are present in all four quadrants. EXTREMITIES: No clubbing, cyanosis, or edema. 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 (Dacia Miranda) Assessment and Plan Plan ASSESSMENT - anemia, tarry stool - 7.8, 23.8. INR 2.1 hemoccult pos 11/22. Hx tarry stools for 1 week. Colonoscopy 08/24/16 normal, EGD 08/24/16 ---> gastric polyp, path hyperplastic polyp. PLAN: - EGD in am - NPO after midnight - hold xarelto - obtain consents - rck INR tomorrow - continue to monitor HH - transfuse as necessary - supportive care - further recommendations based on results of above THis pt seen by myself and Dr Paredes and this note is written on his behalf. (Dacia Miranda) Physician Comments Seen and examined with CHRIS, melena reported, egd tomorrow. Recent egd/ colonoscopy noted. Thank you (Owen Paredes MD) Dacia Miranda November 22, 2016 17:48 Owen Paredes MD November 22, 2016 20:34
[2016-11-22] MEDS: PRAVASTATIN SOD 80 MG TAB PO SCH (20:08)
[2016-11-23] VITALS (7 sets, daily range): BP systolic 112–168; BP diastolic 71–96; PULSE 74–90; RESP 18–20; TEMP 97–98.9; O2SAT 97–98
[2016-11-23] MEDS: cefTRIAXone INJ 1,000 MG in SODIUM CHLORIDE 0.9% INJ 100 ML IV SCH (01:11)
[2016-11-23] MEDS: SODIUM CHLOR 0.9% 1000 ML INJ 1,000 ML IV SCH ×3 (04:30→21:52)
[2016-11-23] MEDS: LEVOTHYROXINE SODIUM 100 MCG TAB PO SCH (05:45)
--- NOTE | 2016-11-23 07:12 | HHI.FPPN ---
Subjective Remarks Patient seen and examined this morning. Her vitals are stable she's afebrile. Discharge yesterday for hemoccult positive stool. She reports dark loose stools. Denies any further vaginal bleeding. Has not eaten since yesterday. No other concerns this am. Objective Vitals Vital Signs Date Time Temp Pulse Resp B/P Pulse Ox O2 Delivery O2 Flow Rate FiO2 11/23/16 05:00 97.7 78 18 157/90 98 11/23/16 00:00 98.9 74 18 163/85 98 11/22/16 20:30 99.1 75 18 163/82 98 11/22/16 20:22 80 11/22/16 16:00 97.4 75 16 144/80 97 11/22/16 12:00 97.9 79 16 115/71 96 11/22/16 08:12 76 11/22/16 08:03 97.0 77 16 153/91 98 I/O 11/22/16 11/22/16 11/22/16 11/23/16 11/23/16 11/23/16 07:00 15:00 23:00 07:00 15:00 23:00 Intake Total 1220 ml 1272 ml 860 ml 455 ml Output Total 450 ml Balance 770 ml 1272 ml 860 ml 455 ml Intake Oral 240 ml 480 ml IV Total 980 ml 792 ml 860 ml 455 ml Output Urine Total 450 ml # Voids 4 3 # Bowel Movements 0 1 2 Result Diagram: 11/22/16 0701 11/22/16 0701 Imaging Last Impressions Head CT 11/19/16 1156 Signed Impressions: Service Date/Time: Saturday, November 19, 2016 13:23 - CONCLUSION: 1. No acute hemorrhage or mass effect. 2. Stable small meningioma again noted along the right parietal convexities. 3. Atrophy and old lacunar infarcts. Shan Cardenas MD Chest X-Ray 11/19/16 0000 Signed Impressions: Service Date/Time: Saturday, November 19, 2016 13:28 - CONCLUSION: No acute disease. Shan Cardenas MD Objective Remarks GENERAL: Pleasant but chronically ill-appearing female, lying in bed in no obvious distress SKIN: Stage 1 pressure ulcer on the sacrum, skin is intact there is some erythema and tenderness HEAD: Atraumatic. Normocephalic. NECK: Trachea midline. No JVD or lymphadenopathy. Supple, nontender, no meningeal signs. CARDIOVASCULAR: Regular rate and rhythm without murmurs, gallops, or rubs. RESPIRATORY: Clear to auscultation. Breath sounds equal bilaterally. No wheezes , rales, or rhonchi. GASTROINTESTINAL: Abdomen soft, non-tender, nondistended. MUSCULOSKELETAL: Extremities without clubbing, cyanosis, or edema. NEUROLOGICAL: Awake and alert 3. Slow speech. Poor effort, but appears to have 4 or 5 strength on the right side. Right-sided facial droop. This looks to be unchanged from previous exams. A/P Assessment and Plan 56-year-old female with previous history of abnormal vaginal bleeding returns with supratherapeutic INR at 3.4, and continued vaginal bleeding passing large clots. Previous transvaginal ultrasound revealed endometrial stripe less than 3. She will be admitted for red blood cell transfusion, gynecology consult. Palliative consulted to help with goal clarification and symptom management Discharge Planning DC pending further workup for GI bleed. Discussed with Al and Amos, patient's , and nurse at bedside. Problem List: (1) GI bleed Status: Acute Plan: Hemoccult-positive. Evaluated by GI: Cold Xarelto, recheck INR, transfuse as necessary, EGD for today History: GD 08/24/16---> gastric polyp, path hyperplastic polyp. Colonoscopy ---> normal. (2) Vaginal bleeding, abnormal Status: Resolved Plan: Resolved. Likely secondary to supratherapeutic INR of 3.4 on arrival SWEATBAND SEPARATOR consulted, appreciate evaluation and recommendations - SWEATBAND SEPARATOR reviewed previous ultrasound that showed fibroids and 3 mm endometrial stripe, does not feel the fibroids are contributing to vaginal bleeding - Provera 10 mg by mouth daily until Coumadin in therapeutic range, then continue for 14 days Monitor daily CBCs and transfuse as needed Counseled importance of following with a SWEATBAND SEPARATOR as an outpatient INR 2.8 on 11/20, continue to hold Coumadin until INR is closer to 2 - INR 11/21 2.1 - Started on xarelto this am. (3) Recurrent UTI Status: Acute Plan: Patient has a history of frequent UTIs. 11/19 urine culture showing gram-negative jessy. Continue ceftriaxone 1 g every 24 hours (started 11/20-11/22) Will d/c on keflex (4) Anemia Status: Chronic Plan: Resolved. On admission hemoglobin was 7.0, 8.5 after transfusion. History: Transfuse 2 units PRBCs on 11/19 and treatment as above for vaginal bleeding - Monitor daily CBCs and transfuse as needed (5) Acute renal failure Status: Resolved Plan: Improving. (6) Supratherapeutic INR Status: Acute Plan: Currently holding Coumadin - INR 11/21 is 2.1 - Started on xarelto 11/22, hemoccult positive. May have to place patient back on coumadin given her recurrent bleeds where reversal agent could be potentially needed. (7) Pressure ulcer Status: Acute Plan: Physical exam, and history reveals stage I/2 pressure ulcer at the sacrum , and bilateral ankle. Wound care nurse consulted. Offload areas as able. (8) History of CVA (cerebrovascular accident) Status: Chronic Plan: History of CVA 3 with persistent right-sided deficits. Holding Coumadin and aspirin given acute bleeding. Follows with neurology as an outpatient. (9) FEN/PPX Status: Acute Plan: Fluids: HLIV Electrolytes: Monitor and replace when necessary Nutrition: Regular diet as tolerated. Prophylaxis: Xarelto--HOLD for active bleed. Bilat SCDs Chronic medical problems: History of CVA: See above regarding warfarin management. Type 2 diabetes: Hold home metformin. Sliding scale insulin while inpatient. Recent femoral neck fracture: We'll provide PT while inpatient. Morphine 2 mg every 3 hours when necessary pain 6-10. Depression: Continue home citalopram 40 mg by mouth daily. Vitamin D deficiency: Continue current management as an outpatient. Hyperlipidemia: Continue simvastatin. Hypothyroidism: Continue levothyroxine 100 MCG daily Hypertension: Amlodipine 5 mg by mouth daily; she does have a history of labile blood pressures. Carefully monitor. History of adrenal insufficiency: Further workup with endocrinology was recommended as an outpatient. Continue fludrocortisone 0.1 mg by mouth daily. Problem Qualifiers (1) Anemia: Qualified Code: D64.9 - Anemia, unspecified type (2) Acute renal failure: Qualified Code: N17.9 - Acute renal failure, unspecified acute renal failure type Jerrica Golden MD R3 November 23, 2016 07:12
[2016-11-23 08:27] LABS: AUTOMATED NEUTROPHIL # 3.7 TH/MM3 (1.8-7.7); BASOPHIL % 0.5 % (0.0-2.0); EOSINOPHIL # 0.1 TH/MM3 (0-0.4); EOSINOPHIL % 2.3 % (0.0-4.0); HEMATOCRIT 27.9 % (35.0-46.0); HEMO FLAGS DIFF FINAL; LYMPH % 27.8 % (9.0-44.0); LYMPHOCYTE # 1.7 TH/MM3 (1.0-4.8); MEAN CORPUSCULAR HEMOGLOBIN 27.4 PG (27.0-34.0); MEAN CORPUSCULAR HGB CONC 33.4 % (32.0-36.0); MONO % 7.9 % (0.0-8.0); NEUT % 61.5 % (16.0-70.0); PLATELET COUNT 177 TH/MM3 (150-450); RED CELL DISTRIBUTION WIDTH 15.1 % (11.6-17.2)
[2016-11-23 08:29] LABS: INTERNATIONAL NORMALIZED RATIO 1.2 RATIO; PROTHROMBIN TIME - PATIENT 12.8 SEC (9.8-11.6)
[2016-11-23 08:46] LABS: POTASSIUM 3.5 MEQ/L (3.5-5.1)
[2016-11-23] MEDS: SODIUM CHLORIDE 0.9% FLUSH 10 ML FLUSH IV FLUSH SCH ×2 (09:00→22:22)
--- NOTE | 2016-11-23 11:18 | GIPROC ---
[facility] [address] [facility]. [facility] [place], [id number] EGD PROCEDURE REPORT EXAM DATE: 11/23/2016 PATIENT NAME: Jennie Velasquez MR #: [id number] BIRTHDATE: 1960 ATTENDING: Owen Paredes MD ORDER #: [id number] DATA PROCESSING MANAGER: Jasmeet Galvan McLane, Michelle, and Audra Carroll STATUS: inpatient INDICATIONS: The patient is a 56 yr old female here for an EGD due to iron deficiency anemia and acute post hemorrhagic anemia PROCEDURE PERFORMED: EGD w/ biopsy MEDICATIONS: None and Per Anesthesia. TOPICAL ANESTHETIC: CONSENT: The patient understands the risks and benefits of the procedure and understands that these risks include, but are not limited to: sedation, allergic reaction, infection, perforation and/or bleeding. Alternative means of evaluation and treatment include, among others: physical exam, x-rays, and/or surgical intervention. The patient elects to proceed with this endoscopic procedure. medical equipment was checked for proper function. Hand hygiene and appropriate measures for infection prevention was taken. After the risks, benefits and alternatives of the procedure were thoroughly explained, Informed consent was verified, confirmed and timeout was successfully executed by the treatment team. The patient was anesthetized with topical anesthesia and the Pentax EG-[id number] endoscope was introduced through the mouth and advanced to the second portion of the duodenum. Retroflexed views revealed no abnormalities The gastroscope was then slowly withdrawn and removed. ESOPHAGUS: There was LA Class A esophagitis noted. STOMACH: There was erythematous moderate gastritis in the gastric antrum. A biopsy was performed using cold forceps. DUODENUM: The duodenal mucosa appeared normal. ADVERSE EVENTS: There were no complications. IMPRESSIONS: 1. There was LA Class A esophagitis noted 2. There was erythematous gastritis in the gastric antrum; biopsy was performed 3. Normal duodenal mucosa 4. Retroflexed views revealed no abnormalities RECOMMENDATIONS: 1. Await biopsy results. Biopsy results will not be ready for 7-10 days. If you don't hear from us in two weeks, call our office for biopsy results. 2. Continue PPI 3. Avoid NSAIDS PATIENT CONDITION: stable DISPOSITION: Inpatient REPEAT EXAM: Return 3 years EGD pending biopsy results Owen Paredes MD eSigned: Owen Paredes MD 11/23/2016 11:18 AM cc: PATIENT NAME: Jennie Velasquez MR#: [id number]
[2016-11-23] MEDS ORDERED: PROPOFOL 200 MG/20 ML AMP IV ONE (12:19)
--- NOTE | 2016-11-23 12:28 | PD.CONS ---
Consult Service Palliative Care . Consult Requested By Dr. Irina Trinidad . Primary Care Physician Shan Quick MD Reason for Consultation a. To assist with evaluation and management of symptoms including: lethargy , weakness. b. To assist medical decision maker(s) with: better understanding of current medical conditions; weighing benefits/burdens of medical treatment options; making medical treatment decisions. . HPI History of Present Illness Mrs. Ron (Tanya) is a 56 year old female with past medical history of lupus, hypertension, CVA, type II diabetes, hyperlipidemia, asthma, arthritis, sleep apnea, recent hip fracture and hypothyroidism. History of 2 prior strokes on Coumadin. At baseline difficulty ambulating without assistance over several years, progressive worsening recently. She is a patient of the family practice residency program, Dr. Quick. The postmenopausal (for the past few years) patient was previously evaluated for vaginal bleeding that started a few months prior. In the beginning of October, she had been passing large clots approximately 3 x 3 cm from the vagina. INR was supratherapeutic during prior evaluation. Her last Pap smear was June 2016 was normal. Recent transvaginal ultrasound showed no endometrial thickening (endometrial stripe of 3 mm), but it did show multiple uterine fibroids. It was recommended the patient follow with a ROTATIONAL MOULDING OPERATOR, patient was unable to follow up as outpatient. Patient presented to [facility] emergency department on 11/19/16 for increased generalized weakness, lethargy, non-productive dry cough, difficulty talking at times and confusion. Notes also indicate she reported vaginal bleeding. She had not been eating for the 3 days prior to presentation. Patient has sacral and bilateral ankle pressure sores. Initial evaluation revealed: * WBC 9.9, hemoglobin 7.0, hematocrit 21.6, platelet count 329, neutrophil 58.2% * sodium 140, potassium 4.1, chloride 104, carbon dioxide 24.7, BUN 52, creatinine 2.97, GFR 16, glucose 75 * Lactic acid 1.4 * Total bilirubin 0.3, AST 15, ALT 12, alkaline phosphatase 82 * total protein 6.9, albumin 3.4 * PT 39.5, INR 3.4, PTT 43.2 * urinalysis positive for leukocyte esterase, WBC, RBC, bacteria. * CT the head - no acute hemorrhage or mass effect, stable small meningioma again noted along the right parietal convexity's, atrophy and old lacunar infarcts. Patient is admitted with symptomatic anemia, vaginal bleeding, acute renal failure and coagulopathy. Patient has been transfused 2 units packed red blood cells since admission. Coumadin was initially discontinued. Hemoglobin stabilized, patient was eating better and was being planned for discharge. Patient had recurrent vaginal bleeding, therefore discharge was held. Patient had developed black stool, Hemoccult positive. Patient was started on Xarelto on 11/22/16. Patient was on iron supplementation prior to admission for 1 month. Gastroenterology, Dr. Paredes was consulted. Patient had prior gastroenterology workup: EGD 08/24/16---> gastric polyp, path hyperplastic polyp. Colonoscopy 08/24/16 ---> normal. Plan for repeat EGD on 11/23/16. Physical therapy notes indicate the patient has difficulty with mobility, poor standing balance, unable to walk secondary to weakness. NO CODE. Palliative care is consulted to assist with symptom management and further clarification of treatment goals. . Function/Cognitive Trajectory At baseline difficulty ambulating without assistance over the past several years due to prior strokes. Eating bites and sips of most meals. Residual right-sided weakness secondary to prior strokes. Speech is impaired, indicates she has trouble saying words and difficulty putting sentences together. Significantly reduce short-term memory and diminishing long-term memory. Sleeps all of the time. Dependent for all care. . Review of Systems ROS Limitations: Altered Mental Status (lethargic post EGD and dose of Morphine per spouse. ) Constitutional: COMPLAINS OF: Fatigue (sleeps all pf the time. ), Weight loss, Change in appetite (bites and sips of most meals ), Generalized weakness Respiratory: COMPLAINS OF: Cough Gastrointestinal: COMPLAINS OF: Black stools, Bloody stools Genitourinary: COMPLAINS OF: Abnormal vaginal bleeding Musculoskeletal: COMPLAINS OF: Back pain Hematologic/Lymphatics: COMPLAINS OF: Bruising Neurologic: COMPLAINS OF: Speech Problems, Poor Balance (has been unabel to ambulate without max assist for the past few years. ) Psychiatric: COMPLAINS OF: Confusion (underlying dementia (post strokes)) Past Family Social History Coded Allergies: Penicillin (Verified Allergy, Severe, Rash, 10/23/16) Past Medical History CVA X 2 most recent 2013 on Coumadin Hypertension Type II diabetes Lupus Hypothyroidism Hyperlipidemia Arthritis Asthma Sleep apnea Depression Restless leg syndrome Rotator cuff tear 2014 . Past Surgical History Left femur fracture - percutaneous pinning 08/2016 Cholecystectomy Right salpingo oophorectomy 1997 Tubal ligation . Reported Medications Reported Meds & Active Scripts Active Coumadin (Warfarin) 3 Mg Tab 3 Mg PO DAILY Ferrous Sulfate 325 Mg Tab 325 Mg PO BID Tramadol (Tramadol HCl) 50 Mg Tab 50 Mg PO Q6H PRN Hydrocodone-Acetaminophen 10-325 mg Tab 1 Tab PO Q6H PRN Levothyroxine (Levothyroxine Sodium) 100 Mcg Tab 100 Mcg PO DAILY Fludrocortisone (Fludrocortisone Acetate) 0.1 Mg Tab 0.1 Mg PO DAILY Lisinopril 40 Mg Tab 40 Mg PO DAILY Metformin (Metformin HCl) 1,000 Mg Tab 1,000 Mg PO BIDPC With meals Simvastatin 40 Mg Tab 40 Mg PO HS Senna Plus 8.6-50 mg (Sennosides-Docusate Sodium) 1 Tab Tab 2 Tab PO BID PRN Drisdol (Ergocalciferol) 50,000 Unit Cap 50,000 Units PO Q7D Norvasc (Amlodipine Besylate) 5 Mg Tab 5 Mg PO DAILY Citalopram (Citalopram Hydrobromide) 40 Mg Tab 40 Mg PO DAILY hold this medication until course of antibiotics has been completed Gabapentin 800 Mg Tab 800 Mg PO TID Aspirin 81 Mg Tabdr 81 Mg PO DAILY Reported Risperdal (Risperidone) 2 Mg Tab 2 Mg PO DAILY . Current Medications Medications (Trade) Dose Ordered Sig/Anabela Route Start Time Stop Time Status Last Admin (NS 1000 ml Inj) 1,000 ml @ 100 mls/hr Q10H IV 11/19/16 17:52 11/23/16 04:30 (NS Flush) 2 ml UNSCH PRN IV FLUSH 11/19/16 18:00 (NS Flush) 2 ml BID IV FLUSH 11/19/16 21:00 11/21/16 20:15 (Tylenol) 650 mg Q4H PRN PO 11/19/16 18:00 (Zofran Inj) 4 mg Q6H PRN IVP 11/19/16 18:00 (Milk Of Magnesia Liq) 30 ml Q12H PRN PO 11/19/16 18:00 (Narcan Inj) 0.4 mg UNSCH PRN IV 11/19/16 18:00 (Norvasc) 5 mg DAILY PO 11/20/16 09:00 11/22/16 08:17 (CeleXA) 40 mg DAILY PO 11/20/16 09:00 11/22/16 08:17 (Ferrous Sulfate) 325 mg BID PO 11/19/16 21:00 11/22/16 20:08 (Florinef) 0.1 mg DAILY PO 11/20/16 09:00 11/22/16 08:17 (Synthroid) 100 mcg DAILY@06 PO 11/20/16 06:00 11/23/16 05:45 (Prinivil) 40 mg DAILY PO 11/20/16 09:00 11/22/16 08:16 (risperDAL) 2 mg DAILY PO 11/20/16 09:00 11/22/16 08:17 (Skye-Colace) 2 tab BID PRN PO 11/19/16 18:00 (Pravachol) 80 mg HS PO 11/19/16 21:00 11/22/16 20:08 (Morphine Inj) 1 mg Q3H PRN IV 11/19/16 18:30 11/20/16 06:31 (Morphine Inj) 2 mg Q3H PRN IV 11/19/16 18:30 (Narcan Inj) 0.4 mg UNSCH PRN IV 11/19/16 18:30 (Provera) 10 mg DAILY PO 11/20/16 09:00 11/22/16 08:17 Gabapentin 400 mg 400 mg BID PO 11/20/16 09:00 11/22/16 20:08 (Rocephin Inj/NS Inj) 100 ml @ 200 mls/hr Q24H IV 11/21/16 00:00 11/23/16 01:11 (Xarelto) 20 mg DAILY PO 11/22/16 09:00 Hold 11/22/16 08:17 . Family History Daughter at age 35 of strokes, HTN and "many of the problems patient has" after prolonged ICU stay on vent. Father's at 63 of throat and tongue cancer Mother is at 55 cardiac complications One sister has cardiac disease and hypertension . Substance Use Tobacco: denies Alcohol: denies Prescription med abuse: denies Illicits: denies . Psychosocial History From [place]. Moved to [place] in 2001. Has been to her Nissa for 30 years. They had 3 children, one daughter at age 35. Has 1 son , Shan and 1 daughter, Tangela who live local. 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 She and her has been used to enjoy walking on the beach and [place] together. . Spiritual/Cultural Factors Restorationism teresa. . Living Will: Never completed Health Care Surrogate: Never completed Durable Power of Cafeteria Or Lunchroom Checker: Never completed Health Care Surrogate(s): No written advance directives. If patient is incapacitated, according to [place] statutes, health care proxy decision-making falls to the patient's spouse. Spouse requests 5 wishes document, will bring to next visit. . Today's verbally stated goals: Patient is lethargic today post EGD/pain medication, unable to participate in goals of care at this time. Family/friends goals: Goals remain aggressive at this time short of NO CODE in speaking with spouse, he hopes for patient to return to [facility] for rehabilitation. He verbalizes understanding of her decline and that she will likely not survive the year. He is appropriately tearful. . Ethical and Legal Issues No known written advance directives. If patient is incapacitated, according to [place] statutes, health care proxy decision-making falls to the patient's spouse. . Physical Exam Vital Signs Date Time Temp Pulse Resp B/P Pulse Ox O2 Delivery O2 Flow Rate FiO2 11/23/16 08:00 97.8 77 20 168/96 97 11/23/16 05:00 97.7 78 18 157/90 98 11/23/16 00:00 98.9 74 18 163/85 98 11/22/16 20:30 99.1 75 18 163/82 98 11/22/16 20:22 80 11/22/16 16:00 97.4 75 16 144/80 97 11/22/16 12:00 97.9 79 16 115/71 96 11/22/16 11/23/16 19:00 07:00 Intake Total 1272 ml 1315 ml Balance 1272 ml 1315 ml Intake Oral 480 ml IV Total 792 ml 1315 ml # Voids 2 5 # Bowel Movements 3 Exam CONSTITUTIONAL/GENERAL: This is an thin, frail female, in no apparent distress. TUBES/LINES/DRAINS: PIV, Cardoso. SKIN: No jaundice, rashes, or lesions. Ecchymoses on upper extremities. Stage 1 ulcer on sacrum not visualized. Skin temperature appropriate. Not diaphoretic. HEAD: Atraumatic. Normocephalic. EYES: Pupils equal and round and reactive. Extraocular motions intact. No scleral icterus. No injection or drainage. Fundi not examined. ENT: Hearing grossly normal. Nose without bleeding or purulent drainage. Throat clear. NECK: Trachea midline. CARDIOVASCULAR: Regular rate and rhythm without murmurs, gallops, or rubs. No JVD. Peripheral pulses symmetric. RESPIRATORY/CHEST: Symmetric, unlabored respirations. Clear to auscultation. Diminished breath sounds bilaterally. GASTROINTESTINAL: Abdomen soft, non-tender, nondistended. No guarding. Bowel sounds present. GENITOURINARY: Without palpable bladder distension. Cardoso catheter in place. MUSCULOSKELETAL: Extremities without clubbing, cyanosis, or edema. No mottling or clubbing. LYMPHATICS: No palpable cervical or supraclavicular adenopathy. NEUROLOGICAL: Awakens, lethargic. Nods yes/no to questions. PSYCHIATRIC: No obvious anxiety/depression. no apparent hallucinations or other psychotic thought process. . Diagnostic Tests Laboratory Laboratory Tests Test 11/20/16 11/21/16 11/21/16 11/22/16 18:18 10:40 14:26 07:01 Hemoglobin 8.0 GM/DL 8.4 GM/DL 7.8 GM/DL (11.6-15.3) (11.6-15.3) (11.6-15.3) Hematocrit 24.6 % 25.6 % 23.8 % (35.0-46.0) (35.0-46.0) (35.0-46.0) Sodium Level 140 MEQ/L 142 MEQ/L 143 MEQ/L (136-145) (136-145) (136-145) Potassium Level 4.4 MEQ/L 3.9 MEQ/L 3.6 MEQ/L (3.5-5.1) (3.5-5.1) (3.5-5.1) Chloride Level 108 MEQ/L 110 MEQ/L 111 MEQ/L (98-107) (98-107) (98-107) Carbon Dioxide Level 22.8 MEQ/L 24.2 MEQ/L 24.0 MEQ/L (21.0-32.0) (21.0-32.0) (21.0-32.0) Anion Gap 9 MEQ/L (5-15) 8 MEQ/L (5-15) 8 MEQ/L (5-15) Blood Urea Nitrogen 42 MG/DL (7-18) 32 MG/DL (7-18) 25 MG/DL (7-18) Creatinine 1.39 MG/DL 1.07 MG/DL 0.94 MG/DL (0.50-1.00) (0.50-1.00) (0.50-1.00) Estimat Glomerular Filtration 39 ML/MIN (>89) 53 ML/MIN (>89) 61 ML/MIN (>89) Rate Random Glucose 86 MG/DL 151 MG/DL 86 MG/DL (74-106) (74-106) (74-106) Calcium Level 8.6 MG/DL 8.4 MG/DL 8.5 MG/DL (8.5-10.1) (8.5-10.1) (8.5-10.1) Prothrombin Time 24.1 SEC (9.8-11.6) Prothromb Time International 2.1 RATIO Ratio White Blood Count 6.3 TH/MM3 6.7 TH/MM3 (4.0-11.0) (4.0-11.0) Red Blood Count 3.07 MIL/MM3 2.90 MIL/MM3 (4.00-5.30) (4.00-5.30) Mean Corpuscular Volume 83.3 FL 81.8 FL (80.0-100.0) (80.0-100.0) Mean Corpuscular Hemoglobin 27.2 PG 26.9 PG (27.0-34.0) (27.0-34.0) Mean Corpuscular Hemoglobin 32.7 % 32.8 % Concent (32.0-36.0) (32.0-36.0) Red Cell Distribution Width 15.4 % 14.8 % (11.6-17.2) (11.6-17.2) Platelet Count 173 TH/MM3 170 TH/MM3 (150-450) (150-450) Mean Platelet Volume 9.0 FL 8.8 FL (7.0-11.0) (7.0-11.0) Neutrophils (%) (Auto) 62.3 % 64.4 % (16.0-70.0) (16.0-70.0) Lymphocytes (%) (Auto) 27.5 % 25.5 % (9.0-44.0) (9.0-44.0) Monocytes (%) (Auto) 7.4 % (0.0-8.0) 7.8 % (0.0-8.0) Eosinophils (%) (Auto) 2.0 % (0.0-4.0) 1.8 % (0.0-4.0) Basophils (%) (Auto) 0.8 % (0.0-2.0) 0.5 % (0.0-2.0) Neutrophils # (Auto) 3.9 TH/MM3 4.3 TH/MM3 (1.8-7.7) (1.8-7.7) Lymphocytes # (Auto) 1.7 TH/MM3 1.7 TH/MM3 (1.0-4.8) (1.0-4.8) Monocytes # (Auto) 0.5 TH/MM3 0.5 TH/MM3 (0-0.9) (0-0.9) Eosinophils # (Auto) 0.1 TH/MM3 0.1 TH/MM3 (0-0.4) (0-0.4) Basophils # (Auto) 0.1 TH/MM3 0.0 TH/MM3 (0-0.2) (0-0.2) CBC Comment DIFF FINAL DIFF FINAL Differential Comment Total Bilirubin 0.2 MG/DL (0.2-1.0) Aspartate Amino Transf 9 U/L (15-37) (AST/SGOT) Alanine Aminotransferase 7 U/L (10-53) (ALT/SGPT) Alkaline Phosphatase 70 U/L (45-117) Total Protein 5.6 GM/DL (6.4-8.2) Albumin 2.4 GM/DL (3.4-5.0) Test 11/23/16 07:10 White Blood Count 6.0 TH/MM3 (4.0-11.0) Red Blood Count 3.40 MIL/MM3 (4.00-5.30) Hemoglobin 9.3 GM/DL (11.6-15.3) Hematocrit 27.9 % (35.0-46.0) Mean Corpuscular Volume 82.0 FL (80.0-100.0) Mean Corpuscular Hemoglobin 27.4 PG (27.0-34.0) Mean Corpuscular Hemoglobin 33.4 % Concent (32.0-36.0) Red Cell Distribution Width 15.1 % (11.6-17.2) Platelet Count 177 TH/MM3 (150-450) Mean Platelet Volume 8.9 FL (7.0-11.0) Neutrophils (%) (Auto) 61.5 % (16.0-70.0) Lymphocytes (%) (Auto) 27.8 % (9.0-44.0) Monocytes (%) (Auto) 7.9 % (0.0-8.0) Eosinophils (%) (Auto) 2.3 % (0.0-4.0) Basophils (%) (Auto) 0.5 % (0.0-2.0) Neutrophils # (Auto) 3.7 TH/MM3 (1.8-7.7) Lymphocytes # (Auto) 1.7 TH/MM3 (1.0-4.8) Monocytes # (Auto) 0.5 TH/MM3 (0-0.9) Eosinophils # (Auto) 0.1 TH/MM3 (0-0.4) Basophils # (Auto) 0.0 TH/MM3 (0-0.2) CBC Comment DIFF FINAL Differential Comment Prothrombin Time 12.8 SEC (9.8-11.6) Prothromb Time International 1.2 RATIO Ratio Sodium Level 143 MEQ/L (136-145) Potassium Level 3.5 MEQ/L (3.5-5.1) Chloride Level 111 MEQ/L (98-107) Carbon Dioxide Level 24.0 MEQ/L (21.0-32.0) Anion Gap 8 MEQ/L (5-15) Blood Urea Nitrogen 18 MG/DL (7-18) Creatinine 0.75 MG/DL (0.50-1.00) Estimat Glomerular Filtration 80 ML/MIN (>89) Rate Random Glucose 92 MG/DL (74-106) Calcium Level 8.3 MG/DL (8.5-10.1) Result Diagram: 11/23/16 0710 11/23/16 0710 Microbiology Microbiology Date/Time Procedure Status Source Growth 11/22/16 12:00 Stool Occult Blood (JANAE) - Final Complete Stool Stool HEMOCCULT POSITIVE Imaging Last Impressions Head CT 11/19/16 1156 Signed Impressions: Service Date/Time: Saturday, November 19, 2016 13:23 - CONCLUSION: 1. No acute hemorrhage or mass effect. 2. Stable small meningioma again noted along the right parietal convexities. 3. Atrophy and old lacunar infarcts. Shan Cardenas MD Chest X-Ray 11/19/16 0000 Signed Impressions: Service Date/Time: Saturday, November 19, 2016 13:28 - CONCLUSION: No acute disease. Shan Cardenas MD Procedures * 11/23/16 - EGD - esophagitis and gastritis, gastric biopsy done. Recommend PPI and No NSAIDS. . Patient/Family Conference Present at Family Conference: met with patient (she did not participate due to lethargy) and spouse, Nissa. Family Conference Time (mins): 60 Family Conference Location: Bedside Issues Discussed: * Palliative care role, purpose, approach * Additional medical, psychosocial, and spiritual history * Patients general health, functional status, and cognitive changes in the months leading up to the current hospitalization * Patient/family understanding of the current medical problems * Patient/family understanding of prognosis * Patients goals of care as best understood from advance directives and/or conversations and/or values * Current medical treatment options and benefits/burdens of those options * Likely scenarios comparing ongoing aggressive care with a transition to comfort measures only * Questions answered to the best of my ability * Palliative care contact information provided Goals aggressive short of NO CODE for now. Hopeful pt will return to [facility] for rehab. Assessment and Plan Disease Oriented Problem List: (1) Supratherapeutic INR (2) GI bleed (3) Vaginal bleeding (4) Anemia (5) Recurrent UTI (6) Acute renal failure (7) Uterine fibroid (8) Pressure ulcer Symptom Scale: (1) Weakness (2) Decreased appetite Pertinent Non-Medical Issues Psychosocial: . 2 children (son ad daughter) Spiritual: Restorationism teresa. Legal: No known written advance directives. If patient is incapacitated, according to [place] statutes, health care proxy decision-making falls to the patient's spouse. Ethical issues impacting care: No known concerns at this time. . Important Contacts * Eamon Velasquez, spouse/HCP: [phone] . Prognosis Patient with ongoing delcine since stroke in 2014, she is dependent for all care , she has multiple medical comorbidities and overall poor prognosis. PPS 20. Eating bites and sips. Hospice appropriate if goals are comfort oriented. . Code Status: No Code Plan * No written advance directives. If patient is incapacitated, according to [place] statutes, health care proxy decision-making falls to the patient's spouse, "Nissa". Requests 5 wishes document for completion at a later date, will bring to next visit. * NO CODE - will bring [place] DNR to next visit for completion for DC. Spouse agrees. * Palliative care met with spouse at bedside. Patient is lethargic postprocedure/pain medication and unable to participate in conversation. Met with spouse for 60 minutes, his goals remain aggressive at this time short of NO CODE. He hopes for patient to return to [facility] for rehabilitation. He verbalizes understanding of her decline and that she will likely not survive the year. He is appropriately tearful. He conversation regarding likely continue to decline overall poor prognosis and limited life expectancy. He seems to understanding all of this, grieving and hopeful for continued recovery. He is thankful for time spent, appreciates me listening to his stories about the patient and their life together. He does not seem to have a good support system here locally. Not yet ready to consider transition to comfort focused care. * SYMPTOMS: Weakness: patient appears to be declining post strokes, limited life expectancy. Plan for DC to rehab. Lethargy: secondary to procedure EGD/ pain medication and overall decline. Pain: nice pain during my visit, was previously medicated with morphine. Spouse feels medications are currently effective. No change at this time. Will monitor effect. * Palliative care number provided. * Palliative care will continue to follow throughout hospital course to assist with symptom management and clarification of goals as needed. . Thank you for the opportunity to participate in the care of Ms. Velasquez. Attestation To help prompt me to consider important information that might be impacting today's encounter and assessment, information from prior notes written by myself or my colleagues may have been "brought forward" into today's note. My signature on this note, however, is an attestation that I personally performed the exam, history, and/or decision-making noted today, and, unless otherwise indicated, the interactions with patient, family, and staff as well as the review of records all occurred today. I also attest that the listed assessment and stated plan reflect my best clinical judgment today based on the combination of historical information, prior notes, and today's exam/ interactions. When time spent is documented, it refers only to time spent today by the signer, or if indicated, combined time spent today by collaborating physician/nurse practitioner. RICARDO BEYER November 23, 2016 12:28
[2016-11-23] MEDS: LISINOPRIL 20 MG TAB PO SCH (12:35)
[2016-11-23] MEDS: FLUDROCORTISONE ACETATE 0.1 MG TAB PO SCH (12:35)
[2016-11-23] MEDS: CITALOPRAM HYDROBROMIDE 40 MG TAB PO SCH (12:36)
[2016-11-23] MEDS: GABAPENTIN 400 MG CAP PO SCH ×2 (12:36→22:22)
[2016-11-23] MEDS: risperiDONE 1 MG TAB PO SCH (12:36)
[2016-11-23] MEDS: amLODIPine BESYLATE 5 MG TAB PO SCH (12:36)
[2016-11-23] MEDS: medroxyPROGESTERone ACETATE 10 MG TAB PO SCH (12:36)
[2016-11-23] MEDS: FERROUS SULFATE 325 MG (65 MG ELEMENTAL IRON) TAB PO SCH ×2 (12:36→22:22)
[2016-11-23] MEDS: PRAVASTATIN SOD 80 MG TAB PO SCH (22:22)
[2016-11-24] VITALS (8 sets, daily range): BP systolic 106–164; BP diastolic 52–92; PULSE 64–90; RESP 15–20; TEMP 96.1–98.9; O2SAT 96–100
[2016-11-24] MEDS: cefTRIAXone INJ 1,000 MG in SODIUM CHLORIDE 0.9% INJ 100 ML IV SCH ×2 (00:15→23:12)
[2016-11-24] MEDS: LEVOTHYROXINE SODIUM 100 MCG TAB PO SCH (05:19)
[2016-11-24 06:54] LABS: AUTOMATED NEUTROPHIL # 4.5 TH/MM3 (1.8-7.7); BASOPHIL % 0.5 % (0.0-2.0); EOSINOPHIL # 0.2 TH/MM3 (0-0.4); EOSINOPHIL % 2.1 % (0.0-4.0); HEMATOCRIT 24.8 % (35.0-46.0); HEMO FLAGS DIFF FINAL; LYMPH % 29.7 % (9.0-44.0); LYMPHOCYTE # 2.2 TH/MM3 (1.0-4.8); MEAN CELL VOLUME 82.7 FL (80.0-100.0); MEAN CORPUSCULAR HEMOGLOBIN 27.5 PG (27.0-34.0); MEAN CORPUSCULAR HGB CONC 33.3 % (32.0-36.0); MONO % 6.7 % (0.0-8.0); PLATELET COUNT 178 TH/MM3 (150-450); WHITE BLOOD COUNT 7.4 TH/MM3 (4.0-11.0)
[2016-11-24 07:14] LABS: BICARBONATE 22.3 MEQ/L (21.0-32.0)
[2016-11-24 07:24] LABS: POTASSIUM 3.7 MEQ/L (3.5-5.1)
[2016-11-24] MEDS: amLODIPine BESYLATE 5 MG TAB PO SCH (08:09)
[2016-11-24] MEDS: GABAPENTIN 400 MG CAP PO SCH ×2 (08:09→21:00)
[2016-11-24] MEDS: CITALOPRAM HYDROBROMIDE 40 MG TAB PO SCH (08:09)
[2016-11-24] MEDS: risperiDONE 1 MG TAB PO SCH (08:09)
[2016-11-24] MEDS: FERROUS SULFATE 325 MG (65 MG ELEMENTAL IRON) TAB PO SCH ×2 (08:09→21:00)
[2016-11-24] MEDS: medroxyPROGESTERone ACETATE 10 MG TAB PO SCH (08:09)
[2016-11-24] MEDS: LISINOPRIL 20 MG TAB PO SCH (08:09)
[2016-11-24] MEDS: FLUDROCORTISONE ACETATE 0.1 MG TAB PO SCH (08:09)
[2016-11-24] MEDS: SODIUM CHLORIDE 0.9% FLUSH 10 ML FLUSH IV FLUSH SCH ×2 (08:16→21:01)
--- NOTE | 2016-11-24 09:05 | HHI.FPPN ---
Subjective Remarks Patient seen and examined this am. S/P EGD. States she feels well this am. Her vitals are stable. Reports dark stools this morning. Denies bright red blood per rectum. Denies vaginal bleeding. Plan is for patient to go to SNF. Objective Vitals Vital Signs Date Time Temp Pulse Resp B/P Pulse Ox O2 Delivery O2 Flow Rate FiO2 11/24/16 08:00 97.6 76 15 159/87 98 11/24/16 04:18 97.5 72 20 147/84 97 11/24/16 00:00 98.4 64 18 111/52 98 11/23/16 20:23 98.2 78 19 112/71 97 11/23/16 20:22 74 11/23/16 16:00 97.0 90 18 142/85 97 11/23/16 12:00 97.7 80 18 155/84 98 11/23/16 11:38 79 18 171/98 100 11/23/16 11:28 85 18 159/98 100 11/23/16 11:18 98.4 74 18 138/89 100 I/O 11/23/16 11/23/16 11/23/16 11/24/16 11/24/16 11/24/16 07:00 15:00 23:00 07:00 15:00 23:00 Intake Total 455 ml 440 ml 560 ml 900 ml Output Total 400 ml Balance 455 ml 440 ml 160 ml 900 ml Intake Oral 240 ml 360 ml 240 ml IV Total 455 ml 200 ml 660 ml Other 200 ml Output Urine Total 400 ml # Voids 3 6 4 # Bowel Movements 0 3 Result Diagram: 11/24/16 0609 11/24/16 0600 Imaging Last Impressions Head CT 11/19/16 1156 Signed Impressions: Service Date/Time: Saturday, November 19, 2016 13:23 - CONCLUSION: 1. No acute hemorrhage or mass effect. 2. Stable small meningioma again noted along the right parietal convexities. 3. Atrophy and old lacunar infarcts. Shan Cardenas MD Chest X-Ray 11/19/16 0000 Signed Impressions: Service Date/Time: Saturday, November 19, 2016 13:28 - CONCLUSION: No acute disease. Shan Cardenas MD Objective Remarks GENERAL: Pleasant but chronically ill-appearing female, sitting up in bed eating breakfast SKIN: Stage 1 pressure ulcer on the sacrum, skin is intact there is some erythema and tenderness HEAD: Atraumatic. Normocephalic. NECK: Trachea midline. No JVD or lymphadenopathy. Supple, nontender, no meningeal signs. CARDIOVASCULAR: Regular rate and rhythm without murmurs, gallops, or rubs. RESPIRATORY: Clear to auscultation. Breath sounds equal bilaterally. No wheezes , rales, or rhonchi. GASTROINTESTINAL: Abdomen soft, non-tender, nondistended. MUSCULOSKELETAL: Extremities without clubbing, cyanosis, or edema. NEUROLOGICAL: Awake and alert 3. Slow speech. A/P Assessment and Plan 56-year-old female with previous history of abnormal vaginal bleeding returns with supratherapeutic INR at 3.4, and continued vaginal bleeding passing large clots. Previous transvaginal ultrasound revealed endometrial stripe less than 3. She will be admitted for red blood cell transfusion, gynecology consult. Palliative consulted to help with goal clarification and symptom management Discharge Planning DC to SNF this afternoon or tomorrow am. Discussed with Al and Amos Problem List: (1) GI bleed Status: Acute Plan: Hemoccult-positive. Previously on Coumadin, then switched to xarelto. EGD 11/23: esophagitis erythematous gastritis. F/U with GI regarding biopsies. Cont PPI, avoid NSAIDs. History: GD 08/24/16---> gastric polyp, path hyperplastic polyp. Colonoscopy ---> normal. (2) Vaginal bleeding, abnormal Status: Resolved Plan: Resolved. Likely secondary to supratherapeutic INR of 3.4 on arrival PHERESIS SPECIALIST consulted, appreciate evaluation and recommendations - PHERESIS SPECIALIST reviewed previous ultrasound that showed fibroids and 3 mm endometrial stripe, does not feel the fibroids are contributing to vaginal bleeding - Provera 10 mg by mouth daily until Coumadin in therapeutic range, then continue for 14 days Monitor daily CBCs and transfuse as needed Counseled importance of following with a PHERESIS SPECIALIST as an outpatient (3) Recurrent UTI Status: Acute Plan: Patient has a history of frequent UTIs. 11/19 urine culture klebsiella, pansensitive Continue ceftriaxone 1 g every 24 hours (started 11/20- ) (4) Anemia Status: Chronic Plan: Resolved. On admission hemoglobin was 7.0, currently stable at 8.5. History: Transfuse 2 units PRBCs on 11/19 and treatment as above for vaginal bleeding - Monitor daily CBCs and transfuse as needed (5) Acute renal failure Status: Resolved Plan: Improving. (6) Supratherapeutic INR Status: Acute Plan: Presented with supertherapeutic INR on admission. Was switched to xarelto. Due to GI bleed, lengthy discussion with patient, will place patient back on Coumadin at lower dose 2.5 mg with goal INR of close to 2 - INR 5/2 is 1.2 (7) Pressure ulcer Status: Acute Plan: Physical exam, and history reveals stage I/2 pressure ulcer at the sacrum , and bilateral ankle. Wound care nurse consulted. Offload areas as able. (8) History of CVA (cerebrovascular accident) Status: Chronic Plan: History of CVA 3 with persistent right-sided deficits. Resumed coumadin today 11/25 at 2.5 mg daily Follows with neurology as an outpatient. (9) FEN/PPX Status: Acute Plan: Fluids: HLIV Electrolytes: Monitor and replace when necessary Nutrition: Regular diet as tolerated. Prophylaxis: Coumadin 2.5 mg daily Bilat SCDs Chronic medical problems: History of CVA: See above regarding warfarin management. Type 2 diabetes: Hold home metformin. Sliding scale insulin while inpatient. Recent femoral neck fracture: We'll provide PT while inpatient. Morphine 2 mg every 3 hours when necessary pain 6-10. Depression: Continue home citalopram 40 mg by mouth daily. Vitamin D deficiency: Continue current management as an outpatient. Hyperlipidemia: Continue simvastatin. Hypothyroidism: Continue levothyroxine 100 MCG daily Hypertension: Amlodipine 5 mg by mouth daily; she does have a history of labile blood pressures. Carefully monitor. History of adrenal insufficiency: Further workup with endocrinology was recommended as an outpatient. Continue fludrocortisone 0.1 mg by mouth daily. Problem Qualifiers (1) Anemia: Qualified Code: D64.9 - Anemia, unspecified type (2) Acute renal failure: Qualified Code: N17.9 - Acute renal failure, unspecified acute renal failure type Jerrica Golden MD R3 November 24, 2016 09:05
[2016-11-24] MEDS: PANTOPRAZOLE SOD 40 MG DELAYED RELEASE TAB PO SCH (11:37)
[2016-11-24] MEDS ORDERED: MAGNESIUM CITRATE SOLN 300 ML BTL PO ONE ×2 (12:00→18:00)
--- NOTE | 2016-11-24 14:16 | HHI.GIFU ---
Subjective Remarks Pt being fed lunch. Denies abd pain, n/v, diarrhea. (Dacia Miranda) Objective Vitals I&O Vital Signs Date Time Temp Pulse Resp B/P Pulse Ox O2 Delivery O2 Flow Rate FiO2 11/24/16 12:00 98.9 77 16 120/74 100 11/24/16 08:56 86 11/24/16 08:00 97.6 76 15 159/87 98 11/24/16 04:18 97.5 72 20 147/84 97 11/24/16 00:00 98.4 64 18 111/52 98 11/23/16 20:23 98.2 78 19 112/71 97 11/23/16 20:22 74 11/23/16 16:00 97.0 90 18 142/85 97 I/O 11/23/16 11/23/16 11/23/16 11/24/16 11/24/16 11/24/16 07:00 15:00 23:00 07:00 15:00 23:00 Intake Total 455 ml 440 ml 560 ml 900 ml Output Total 400 ml Balance 455 ml 440 ml 160 ml 900 ml Intake Oral 240 ml 360 ml 240 ml IV Total 455 ml 200 ml 660 ml Other 200 ml Output Urine Total 400 ml # Voids 3 6 4 # Bowel Movements 0 3 Laboratory Laboratory Tests Test 11/24/16 11/24/16 06:00 06:09 Sodium Level 142 Potassium Level 3.7 Chloride Level 110 Carbon Dioxide Level 22.3 Anion Gap 10 Blood Urea Nitrogen 19 Creatinine 0.87 Estimat Glomerular Filtration 67 Rate Random Glucose 87 Calcium Level 8.2 White Blood Count 7.4 Red Blood Count 3.00 Hemoglobin 8.3 Hematocrit 24.8 Mean Corpuscular Volume 82.7 Mean Corpuscular Hemoglobin 27.5 Mean Corpuscular Hemoglobin 33.3 Concent Red Cell Distribution Width 15.0 Platelet Count 178 Mean Platelet Volume 8.8 Neutrophils (%) (Auto) 61.0 Lymphocytes (%) (Auto) 29.7 Monocytes (%) (Auto) 6.7 Eosinophils (%) (Auto) 2.1 Basophils (%) (Auto) 0.5 Neutrophils # (Auto) 4.5 Lymphocytes # (Auto) 2.2 Monocytes # (Auto) 0.5 Eosinophils # (Auto) 0.2 Basophils # (Auto) 0.0 CBC Comment DIFF FINAL Differential Comment Date/Time Procedure Status Source Growth 11/22/16 12:00 Stool Occult Blood (JANAE) - Final Complete Stool Stool HEMOCCULT POSITIVE Imaging Last Impressions Head CT 11/19/16 1156 Signed Impressions: Service Date/Time: Saturday, November 19, 2016 13:23 - CONCLUSION: 1. No acute hemorrhage or mass effect. 2. Stable small meningioma again noted along the right parietal convexities. 3. Atrophy and old lacunar infarcts. Shan Cardenas MD Chest X-Ray 11/19/16 0000 Signed Impressions: Service Date/Time: Saturday, November 19, 2016 13:28 - CONCLUSION: No acute disease. Shan Cardenas MD Physical Exam HEENT: EOMI; normocephalic; atraumatic; no jaundice. CHEST: Chest is clear to auscultation and percussion. CARDIAC: Regular rate and rhythm with no murmur gallop or rubs. ABDOMEN: Soft, nondistended, nontender; no hepatosplenomegaly; bowel sounds are present in all four quadrants. EXTREMITIES: No clubbing, cyanosis, or edema. SKIN: Normal; no rash; no jaundice. 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 (Dacia Miranda) Assessment and Plan Plan ASSESSMENT - anemia, tarry stool - 8.3, 24.8. INR 1.2 hemoccult pos 11/22. Hx tarry stools for 1 week, had dark stool today as well. s/p EGD 11-23-16 ---> [place] class A esophagitis, mdoerate erythematous gastritis. Colonoscopy 08/24/16 normal, EGD 08/24/16 ---> gastric polyp, path hyperplastic polyp. Per RN vaginal bleeding has ceased. PLAN: - will do UGI with SBFT - continue to monitor HH - transfuse as necessary - supportive care - further recommendations based on results of above THis pt seen by myself and Dr Paredes and this note is written on his behalf. (Dacia Miranda) Physician Comments Seen and examined, recent egd. SBFT -p. Previous colonoscopy 08/10 noted. Monitor labs. Diet as tolerated. Repeat colonoscopy if further bleeding. ( Owen Paredes MD) Dacia Miranda November 24, 2016 14:16 Owen Paredes MD November 24, 2016 16:00
[2016-11-24] MEDS ORDERED: WARFARIN SOD 2.5 MG TAB PO SCH (16:00)
[2016-11-24] MEDS: BISACODYL EC 5 MG TABEC PO SCH ×2 (18:01→21:00)
[2016-11-24] MEDS: SODIUM CHLOR 0.9% 1000 ML INJ 1,000 ML IV SCH (21:00)
[2016-11-24] MEDS: PRAVASTATIN SOD 80 MG TAB PO SCH (21:01)
--- NOTE | 2016-11-24 22:53 | HHI.HCPN ---
Reason for visit a. To assist with evaluation and management of symptoms including: lethargy , weakness. b. To assist medical decision maker(s) with: better understanding of current medical conditions; weighing benefits/burdens of medical treatment options; making medical treatment decisions. . Subjective/Interval History LATE ENTRY: Patient seen and examined in room with at bedside around 4pm. Patient is more alert today. Slow to find her words secondary to old stroke. Answers questions appropriately. She denies pain, dyspnea or nausea. No PRN pain meds in 24 hours. She is unsure if she has had any bleeding today. SPoke with nurse who indicates black stools this morning. Hemoglobin dropped from 9.3 to 8.3 in the past 24 hours. No vaginal bleeding. Coumadin held today. On Ferrous sulfate. Vital signs stable. Eating bites and sips of most measl per spouse. She does not remember what she had for lunch today. DC held today per nurse. GI notes indicate repeat colonoscopy if further bleeding (last colonoscopy 07/2016). . Family/friend interactions Spoke with patient snd spouse at bedside. She verbalizes desire for DNR/DNI. [place] Do Not Resuscitate order signed and copy to spouse. Original on chart - sent to HIM to be scanned into EMR. Also left a copy of the 5 Wishes (Living Will/HCS) per spouse request. He wants to speak with her privately about this. Medical update provided. He has no questions from our difficult/ emotional conversation on 11/23/16. He is appreciative of tie spent. . Advance Directives Living Will: Never completed Health Care Surrogate: Never completed Durable Power of Hide Mill Worker: Never completed Advance Directive Specifics Health Care Surrogate(s): No written advance directives. If patient is incapacitated, according to [place] statutes, health care proxy decision-making falls to the patient's spouse. Spouse requests 5 wishes document, will bring to next visit. . Significant change in goals: NO CODE. [place] DNR completed. Left Living Will at bedside for pt/spouse to review. Goals for rehab at this time. . Objective Vital Signs Date Time Temp Pulse Resp B/P Pulse Ox O2 Delivery O2 Flow Rate FiO2 11/24/16 20:00 97.4 79 18 164/92 98 11/24/16 16:00 96.1 78 20 106/69 96 11/24/16 12:00 98.9 77 16 120/74 100 11/24/16 08:56 86 11/24/16 08:00 97.6 76 15 159/87 98 11/24/16 04:18 97.5 72 20 147/84 97 11/24/16 00:00 98.4 64 18 111/52 98 Intake & Output 11/24/16 11/24/16 07:00 19:00 Intake Total 1460 ml 1432 ml Output Total 400 ml Balance 1060 ml 1432 ml Intake Oral 600 ml 600 ml IV Total 860 ml 832 ml Output Urine Total 400 ml # Voids 4 2 # Bowel Movements 3 1 Physical Exam CONSTITUTIONAL/GENERAL: This is an thin, frail female, in no apparent distress. TUBES/LINES/DRAINS: PIV, Cardoso. SKIN: No jaundice, rashes, or lesions. Ecchymoses on upper extremities. Stage 1 ulcer on sacrum not visualized. Skin temperature appropriate. Not diaphoretic. ENT: Hearing grossly normal. Nose without bleeding or purulent drainage. Throat clear. CARDIOVASCULAR: Regular rate and rhythm without murmurs, gallops, or rubs. RESPIRATORY/CHEST: Symmetric, unlabored respirations. Clear to auscultation. Diminished breath sounds bilaterally. GASTROINTESTINAL: Abdomen soft, non-tender, nondistended. No guarding. Bowel sounds present. GENITOURINARY: Without palpable bladder distension. Cardoso catheter in place. MUSCULOSKELETAL: Extremities without clubbing, cyanosis, or edema. No mottling or clubbing. NEUROLOGICAL: Awake and alert. Answers questions, slow to find words, sentences don't always make sense. PSYCHIATRIC: No obvious anxiety/depression. no apparent hallucinations or other psychotic thought process. . Diagnostic Tests Laboratory Laboratory Tests Test 11/22/16 11/23/16 11/24/16 11/24/16 07:01 07:10 06:00 06:09 White Blood Count 6.7 TH/MM3 6.0 TH/MM3 7.4 TH/MM3 (4.0-11.0) (4.0-11.0) (4.0-11.0) Red Blood Count 2.90 MIL/MM3 3.40 MIL/MM3 3.00 MIL/MM3 (4.00-5.30) (4.00-5.30) (4.00-5.30) Hemoglobin 7.8 GM/DL 9.3 GM/DL 8.3 GM/DL (11.6-15.3) (11.6-15.3) (11.6-15.3) Hematocrit 23.8 % 27.9 % 24.8 % (35.0-46.0) (35.0-46.0) (35.0-46.0) Mean Corpuscular Volume 81.8 FL 82.0 FL 82.7 FL (80.0-100.0) (80.0-100.0) (80.0-100.0) Mean Corpuscular Hemoglobin 26.9 PG 27.4 PG 27.5 PG (27.0-34.0) (27.0-34.0) (27.0-34.0) Mean Corpuscular Hemoglobin 32.8 % 33.4 % 33.3 % Concent (32.0-36.0) (32.0-36.0) (32.0-36.0) Red Cell Distribution Width 14.8 % 15.1 % 15.0 % (11.6-17.2) (11.6-17.2) (11.6-17.2) Platelet Count 170 TH/MM3 177 TH/MM3 178 TH/MM3 (150-450) (150-450) (150-450) Mean Platelet Volume 8.8 FL 8.9 FL 8.8 FL (7.0-11.0) (7.0-11.0) (7.0-11.0) Neutrophils (%) (Auto) 64.4 % 61.5 % 61.0 % (16.0-70.0) (16.0-70.0) (16.0-70.0) Lymphocytes (%) (Auto) 25.5 % 27.8 % 29.7 % (9.0-44.0) (9.0-44.0) (9.0-44.0) Monocytes (%) (Auto) 7.8 % (0.0-8.0) 7.9 % (0.0-8.0) 6.7 % (0.0-8.0) Eosinophils (%) (Auto) 1.8 % (0.0-4.0) 2.3 % (0.0-4.0) 2.1 % (0.0-4.0) Basophils (%) (Auto) 0.5 % (0.0-2.0) 0.5 % (0.0-2.0) 0.5 % (0.0-2.0) Neutrophils # (Auto) 4.3 TH/MM3 3.7 TH/MM3 4.5 TH/MM3 (1.8-7.7) (1.8-7.7) (1.8-7.7) Lymphocytes # (Auto) 1.7 TH/MM3 1.7 TH/MM3 2.2 TH/MM3 (1.0-4.8) (1.0-4.8) (1.0-4.8) Monocytes # (Auto) 0.5 TH/MM3 0.5 TH/MM3 0.5 TH/MM3 (0-0.9) (0-0.9) (0-0.9) Eosinophils # (Auto) 0.1 TH/MM3 0.1 TH/MM3 0.2 TH/MM3 (0-0.4) (0-0.4) (0-0.4) Basophils # (Auto) 0.0 TH/MM3 0.0 TH/MM3 0.0 TH/MM3 (0-0.2) (0-0.2) (0-0.2) CBC Comment DIFF FINAL DIFF FINAL DIFF FINAL Differential Comment Sodium Level 143 MEQ/L 143 MEQ/L 142 MEQ/L (136-145) (136-145) (136-145) Potassium Level 3.6 MEQ/L 3.5 MEQ/L 3.7 MEQ/L (3.5-5.1) (3.5-5.1) (3.5-5.1) Chloride Level 111 MEQ/L 111 MEQ/L 110 MEQ/L (98-107) (98-107) (98-107) Carbon Dioxide Level 24.0 MEQ/L 24.0 MEQ/L 22.3 MEQ/L (21.0-32.0) (21.0-32.0) (21.0-32.0) Anion Gap 8 MEQ/L (5-15) 8 MEQ/L (5-15) 10 MEQ/L (5-15) Blood Urea Nitrogen 25 MG/DL (7-18) 18 MG/DL (7-18) 19 MG/DL (7-18) Creatinine 0.94 MG/DL 0.75 MG/DL 0.87 MG/DL (0.50-1.00) (0.50-1.00) (0.50-1.00) Estimat Glomerular Filtration 61 ML/MIN (>89) 80 ML/MIN (>89) 67 ML/MIN (>89) Rate Random Glucose 86 MG/DL 92 MG/DL 87 MG/DL (74-106) (74-106) (74-106) Calcium Level 8.5 MG/DL 8.3 MG/DL 8.2 MG/DL (8.5-10.1) (8.5-10.1) (8.5-10.1) Total Bilirubin 0.2 MG/DL (0.2-1.0) Aspartate Amino Transf 9 U/L (15-37) (AST/SGOT) Alanine Aminotransferase 7 U/L (10-53) (ALT/SGPT) Alkaline Phosphatase 70 U/L (45-117) Total Protein 5.6 GM/DL (6.4-8.2) Albumin 2.4 GM/DL (3.4-5.0) Prothrombin Time 12.8 SEC (9.8-11.6) Prothromb Time International 1.2 RATIO Ratio Result Diagram: 11/24/16 0609 11/24/16 0600 Microbiology Microbiology Date/Time Procedure Status Source Growth 11/22/16 12:00 Stool Occult Blood (JANAE) - Final Complete Stool Stool HEMOCCULT POSITIVE Imaging Last Impressions Head CT 11/19/16 1156 Signed Impressions: Service Date/Time: Saturday, November 19, 2016 13:23 - CONCLUSION: 1. No acute hemorrhage or mass effect. 2. Stable small meningioma again noted along the right parietal convexities. 3. Atrophy and old lacunar infarcts. Shan Cardenas MD Chest X-Ray 11/19/16 0000 Signed Impressions: Service Date/Time: Saturday, November 19, 2016 13:28 - CONCLUSION: No acute disease. Shan Cardenas MD . Procedures * 11/23/16 - EGD - esophagitis and gastritis, gastric biopsy done. Recommend PPI and No NSAIDS. . Assessment and Plan Disease Oriented Problem List: (1) Supratherapeutic INR (2) GI bleed (3) Vaginal bleeding (4) Anemia (5) Recurrent UTI (6) Acute renal failure (7) Uterine fibroid (8) Pressure ulcer Symptom Scale: (1) Weakness 0-10 Scale: Unable to quantify (2) Decreased appetite 0-10 Scale: Unable to quantify Pertinent Non-Medical Issues Psychosocial: . Spiritual: Taoist teresa. Legal: No known written advance directives. If patient is incapacitated, according to [place] statutes, health care proxy decision-making falls to the patient's spouse. Ethical issues impacting care: No known concerns at this time. . Important Contacts * Eamon Velasquez, spouse: [phone] . Prognosis Patient with ongoing delcine since stroke in 2013, she is dependent for all care , she has multiple medical comorbidities and overall poor prognosis. PPS 20. Eating bites and sips. Hospice appropriate if goals are comfort oriented. . Code Status: No Code Plan * No written advance directives. Patient appears capacitated to make her decisions at this time, supported by her . According to [place] statutes , health care proxy decision-making falls to the patient's spouse, "Nissa". Left 5 wishes document for completion, they would like to speak privately about this. * NO CODE - [place] DNR completed, patient confirms and asks her spouse to sign as HCP. * Palliative care met with pt/spouse at bedside. NO CODE. [place] DNR completed. Left Living Will at bedside for pt/spouse to review. Goals for rehab at this time. * SYMPTOMS: Weakness: patient appears to be declining post strokes, limited life expectancy. Plan for DC to rehab. Lethargy: secondary to procedure EGD/ pain medication and overall decline. Pain: nice pain during my visit, was previously medicated with morphine. Spouse feels medications are currently effective. No change at this time. Will monitor effect. * Palliative care will continue to follow throughout hospital course to assist with symptom management and clarification of goals as needed. . Time Spent Total Floor Time (mins): 45 Face to Face Time (mins): 30 >50% Counseling/Coord of Care: Yes RICARDO BEYER November 24, 2016 22:53
[2016-11-25] VITALS (8 sets, daily range): BP systolic 135–168; BP diastolic 72–98; PULSE 74–94; RESP 16–20; TEMP 96.8–99.9; O2SAT 96–99
[2016-11-25] MEDS: SODIUM CHLOR 0.9% 1000 ML INJ 1,000 ML IV SCH ×3 (03:52→23:52)
[2016-11-25] MEDS: LEVOTHYROXINE SODIUM 100 MCG TAB PO SCH (05:35)
--- NOTE | 2016-11-25 07:34 | HHI.FPPN ---
Subjective Remarks Patient seen and examined this am. Plan for EGD this am, continues to have dark stools. NO further vaginal bleeding. at bedside, would like to personally updated and plan not given to patient as he states she does not remember the plan and it upsets her. Objective Vitals Vital Signs Date Time Temp Pulse Resp B/P Pulse Ox O2 Delivery O2 Flow Rate FiO2 11/25/16 05:00 99.9 84 18 168/84 98 11/25/16 00:00 99.5 80 18 164/90 98 11/24/16 20:42 90 11/24/16 20:00 97.4 79 18 164/92 98 11/24/16 16:00 96.1 78 20 106/69 96 11/24/16 12:00 98.9 77 16 120/74 100 11/24/16 08:56 86 11/24/16 08:00 97.6 76 15 159/87 98 I/O 11/24/16 11/24/16 11/24/16 11/25/16 11/25/16 11/25/16 07:00 15:00 23:00 07:00 15:00 23:00 Intake Total 900 ml 1432 ml Balance 900 ml 1432 ml Intake Oral 240 ml 600 ml IV Total 660 ml 832 ml # Voids 4 2 2 2 # Bowel Movements 3 1 2 2 Result Diagram: 11/24/16 0609 11/24/16 0600 Imaging Last Impressions Head CT 11/19/16 1156 Signed Impressions: Service Date/Time: Saturday, November 19, 2016 13:23 - CONCLUSION: 1. No acute hemorrhage or mass effect. 2. Stable small meningioma again noted along the right parietal convexities. 3. Atrophy and old lacunar infarcts. Shan Cardenas MD Chest X-Ray 11/19/16 0000 Signed Impressions: Service Date/Time: Saturday, November 19, 2016 13:28 - CONCLUSION: No acute disease. Shan Cardenas MD Objective Remarks GENERAL: Pleasant but chronically ill-appearing female, sitting up in bed eating breakfast SKIN: Stage 1 pressure ulcer on the sacrum, skin is intact there is some erythema and tenderness HEAD: Atraumatic. Normocephalic. NECK: Trachea midline. No JVD or lymphadenopathy. Supple, nontender, no meningeal signs. CARDIOVASCULAR: Regular rate and rhythm without murmurs, gallops, or rubs. RESPIRATORY: Clear to auscultation. Breath sounds equal bilaterally. No wheezes , rales, or rhonchi. GASTROINTESTINAL: Abdomen soft, non-tender, nondistended. MUSCULOSKELETAL: Extremities without clubbing, cyanosis, or edema. NEUROLOGICAL: Awake and alert 3. Slow speech. A/P Assessment and Plan 56-year-old female with previous history of abnormal vaginal bleeding returns with supratherapeutic INR at 3.4, and continued vaginal bleeding passing large clots. Previous transvaginal ultrasound revealed endometrial stripe less than 3. She will be admitted for red blood cell transfusion, gynecology consult. Palliative consulted to help with goal clarification and symptom management Discharge Planning DC to SNF pending results of further workup by GI. Discussed with , patients nurse, and patients Problem List: (1) GI bleed Status: Acute Plan: Hemoccult-positive. Previously on Coumadin, then switched to xarelto, currently on Coumadin. 11/25: plan for upper GI for small bowel follow through. If continues to have bleeding will consider colonoscopy. EGD 11/23: esophagitis erythematous gastritis.Gastric mucosa on biopsy shows mild chronic inflammation, negative helicobacter Cont PPI, avoid NSAIDs. History: GD 08/24/16---> gastric polyp, path hyperplastic polyp. Colonoscopy ---> normal. (2) Vaginal bleeding, abnormal Status: Resolved Plan: Resolved. Likely secondary to supratherapeutic INR of 3.4 on arrival INSPECTOR GOLF BALL consulted, appreciate evaluation and recommendations - INSPECTOR GOLF BALL reviewed previous ultrasound that showed fibroids and 3 mm endometrial stripe, does not feel the fibroids are contributing to vaginal bleeding - Provera 10 mg by mouth daily until Coumadin in therapeutic range, then continue for 14 days Monitor daily CBCs and transfuse as needed Counseled importance of following with a INSPECTOR GOLF BALL as an outpatient (3) Recurrent UTI Status: Acute Plan: Patient has a history of frequent UTIs. 11/19 urine culture klebsiella, pansensitive Continue ceftriaxone 1 g every 24 hours (started 11/20- ) (4) Anemia Status: Chronic Plan: Resolved. On admission hemoglobin was 7.0, currently stable at 8.5. History: Transfuse 2 units PRBCs on 11/19 and treatment as above for vaginal bleeding - Monitor daily CBCs and transfuse as needed (5) Acute renal failure Status: Resolved Plan: Improving. (6) Supratherapeutic INR Status: Acute Plan: Presented with supertherapeutic INR on admission. Was switched to xarelto. Due to GI bleed, lengthy discussion with patient, will place patient back on Coumadin at lower dose 2.5 mg with goal INR of close to 2 - INR 5/2 is 1.2 (7) Pressure ulcer Status: Acute Plan: Physical exam, and history reveals stage I/2 pressure ulcer at the sacrum , and bilateral ankle. Wound care nurse consulted. Offload areas as able. (8) History of CVA (cerebrovascular accident) Status: Chronic Plan: History of CVA 3 with persistent right-sided deficits. Resumed coumadin today 11/25 at 2.5 mg daily Follows with neurology as an outpatient. (9) FEN/PPX Status: Acute Plan: Fluids: HLIV Electrolytes: Monitor and replace when necessary Nutrition: Regular diet as tolerated. Prophylaxis: Coumadin 2.5 mg daily Bilat SCDs Chronic medical problems: History of CVA: See above regarding warfarin management. Type 2 diabetes: Hold home metformin. Sliding scale insulin while inpatient. Recent femoral neck fracture: We'll provide PT while inpatient. Morphine 2 mg every 3 hours when necessary pain 6-10. Depression: Continue home citalopram 40 mg by mouth daily. Vitamin D deficiency: Continue current management as an outpatient. Hyperlipidemia: Continue simvastatin. Hypothyroidism: Continue levothyroxine 100 MCG daily Hypertension: Amlodipine 5 mg by mouth daily; she does have a history of labile blood pressures. Carefully monitor. History of adrenal insufficiency: Further workup with endocrinology was recommended as an outpatient. Continue fludrocortisone 0.1 mg by mouth daily. Problem Qualifiers (1) Anemia: Qualified Code: D64.9 - Anemia, unspecified type (2) Acute renal failure: Qualified Code: N17.9 - Acute renal failure, unspecified acute renal failure type Jerrica Golden MD R3 November 25, 2016 07:34
[2016-11-25 08:53] LABS: HEMATOCRIT 24.6 % (35.0-46.0); MEAN CORPUSCULAR HEMOGLOBIN 27.9 PG (27.0-34.0); PLATELET COUNT 192 TH/MM3 (150-450); RED CELL DISTRIBUTION WIDTH 14.9 % (11.6-17.2); REVIEW FLAG FINAL; WHITE BLOOD COUNT 8.9 TH/MM3 (4.0-11.0)
[2016-11-25] MEDS: GABAPENTIN 400 MG CAP PO SCH ×2 (09:00→21:42)
[2016-11-25 09:02] LABS: PROTHROMBIN TIME - PATIENT 11.6 SEC (9.8-11.6)
--- NOTE | 2016-11-25 13:20 | HHI.GIFU ---
Subjective Remarks Pt resting in bed, in no acute distress. SBFT is in progress. Denies belly pain. Says she is not feeling well but cannot qualify further. Per RN she is still having very dark loose stools. (Dacia Miranda) Objective Vitals I&O Vital Signs Date Time Temp Pulse Resp B/P Pulse Ox O2 Delivery O2 Flow Rate FiO2 11/25/16 12:00 97.8 74 20 146/75 98 11/25/16 08:00 96.8 81 18 135/78 96 11/25/16 05:00 99.9 84 18 168/84 98 11/25/16 00:00 99.5 80 18 164/90 98 11/24/16 20:42 90 11/24/16 20:00 97.4 79 18 164/92 98 11/24/16 16:00 96.1 78 20 106/69 96 I/O 11/24/16 11/24/16 11/24/16 11/25/16 11/25/16 11/25/16 07:00 15:00 23:00 07:00 15:00 23:00 Intake Total 900 ml 1432 ml Balance 900 ml 1432 ml Intake Oral 240 ml 600 ml IV Total 660 ml 832 ml # Voids 4 2 2 2 # Bowel Movements 3 1 2 2 Laboratory Laboratory Tests Test 11/25/16 08:36 White Blood Count 8.9 Red Blood Count 3.00 Hemoglobin 8.4 Hematocrit 24.6 Mean Corpuscular Volume 82.0 Mean Corpuscular Hemoglobin 27.9 Mean Corpuscular Hemoglobin 34.0 Concent Red Cell Distribution Width 14.9 Platelet Count 192 Mean Platelet Volume 8.5 Prothrombin Time 11.6 Prothromb Time International 1.0 Ratio Date/Time Procedure Status Source Growth 11/22/16 12:00 Stool Occult Blood (JANAE) - Final Complete Stool Stool HEMOCCULT POSITIVE Imaging Last Impressions Head CT 11/19/16 1156 Signed Impressions: Service Date/Time: Saturday, November 19, 2016 13:23 - CONCLUSION: 1. No acute hemorrhage or mass effect. 2. Stable small meningioma again noted along the right parietal convexities. 3. Atrophy and old lacunar infarcts. Shan Cardenas MD Chest X-Ray 11/19/16 0000 Signed Impressions: Service Date/Time: Saturday, November 19, 2016 13:28 - CONCLUSION: No acute disease. Shan Cardenas MD Physical Exam HEENT: EOMI; normocephalic; atraumatic; no jaundice. CHEST: Chest is clear to auscultation and percussion. CARDIAC: Regular rate and rhythm with no murmur gallop or rubs. ABDOMEN: Soft, nondistended, nontender; no hepatosplenomegaly; bowel sounds are present in all four quadrants. EXTREMITIES: No clubbing, cyanosis, or edema. SKIN: pale; no rash; no jaundice. FIELD STAFF: Lethargic. (Dacia Miranda) Assessment and Plan Plan ASSESSMENT - anemia, tarry stool - 8.4, 24.6. stable. SBFT in progress. Still with tarry stools. hemoccult pos 11/22. s/p EGD 11-23-16 ---> LA class A esophagitis, mdoerate erythematous gastritis. Colonoscopy 08/24/16 normal, EGD 08/24/16 ---> gastric polyp, path hyperplastic polyp. Per RN vaginal bleeding has ceased. PLAN: - await SBFT - continue to monitor HH - transfuse as necessary - supportive care - further recommendations based on results of above THis pt seen by myself and Dr Paredes and this note is written on his behalf. (Dacia Miranda) Physician Comments Seen and examined, discussed with . UGI/SBFT -p. Outpt. pill cam recommended. If active bleeding can repeat colonoscopy. (Owen Paredes MD) Dacia Miranda November 25, 2016 13:19 Owen Paredes MD November 25, 2016 13:32
--- NOTE | 2016-11-25 16:56 | RADRPT ---
EXAM DATE/TIME: 11/25/2016 09:56 [facility] COMPARISON: No previous studies available for comparison. INDICATIONS : Anemia, blood in stool, weakness FLUORO TIME: 0.7 minutes IMAGE COUNT: 6 CONTRAST: Liquid E-Z Paque Barium Sulfate (60% w/v, 41% w/w) IMAGING TIME(S): 30 min, 1 hr MEDICAL HISTORY : Hypertension. Diabetes mellitus type II. Lupus. CVA. Anemia, fatty liver SURGICAL HISTORY : Cholecystectomy. Tubal ligation. Oophorectomy ENCOUNTER: Initial ACUITY: 2 days PAIN SCORE: 0/10 LOCATION: Bilateral abdomen FINDINGS: The initial pressure vessel inspector radiograph shows distended cecum, measures approximately 12.1 cm. Cecum is flipped anteromedially but this appears to be similar to the prior CT. There is moderate distention of the re st of the right side of the colon and appears to gradually taper near and distal to the splenic flexu re. I don't see any abrupt caliber changes. Small bowel caliber is upper limits of normal throughout. Cholecystectomy clips are noted. Episodic spasm seen of the distal esophagus. GE junction within normal limits. The stomach is within normal limits. Duodenal bulb and duodenal sweep are normal. Delayed small bowel transit time, takes approximately 4 hours and 15 minutes. A short segment moderat e grade narrowing is seen of the distal ileum, estimated 20 cm proximal to the terminal ileum. No oth er caliber changes are demonstrated. This does not appear to be obstructing.. CONCLUSION: 1. Findings are most typical of small and large bowel ileus. 2. Short segment narrowing of the distal ileum, estimated 20 cm proximal to the ileocecal valve. The etiology of this is uncertain. I don't see a mass or correlative inflammatory changes on the CT back in July. An up-to-date CT of the abdomen and pelvis is recommended. Bal Watkins MD on November 25, 2016 at 16:42 Board Certified Radiologist. This report was verified electronically.
[2016-11-25] MEDS: LISINOPRIL 20 MG TAB PO SCH (17:37)
[2016-11-25] MEDS: amLODIPine BESYLATE 5 MG TAB PO SCH (17:38)
[2016-11-25] MEDS: SODIUM CHLORIDE 0.9% FLUSH 10 ML FLUSH IV FLUSH SCH ×2 (17:38→21:42)
[2016-11-25] MEDS: CITALOPRAM HYDROBROMIDE 40 MG TAB PO SCH (17:38)
[2016-11-25] MEDS: PANTOPRAZOLE SOD 40 MG DELAYED RELEASE TAB PO SCH (17:38)
[2016-11-25] MEDS: risperiDONE 1 MG TAB PO SCH (17:38)
[2016-11-25] MEDS: medroxyPROGESTERone ACETATE 10 MG TAB PO SCH (17:38)
[2016-11-25] MEDS: FERROUS SULFATE 325 MG (65 MG ELEMENTAL IRON) TAB PO SCH ×2 (17:38→21:42)
[2016-11-25] MEDS: FLUDROCORTISONE ACETATE 0.1 MG TAB PO SCH (17:43)
[2016-11-25] MEDS: PRAVASTATIN SOD 80 MG TAB PO SCH (21:42)
[2016-11-25] MEDS: cefTRIAXone INJ 1,000 MG in SODIUM CHLORIDE 0.9% INJ 100 ML IV SCH (23:24)
[2016-11-26] VITALS (7 sets, daily range): BP systolic 125–152; BP diastolic 65–88; PULSE 79–93; RESP 16–20; TEMP 96.4–99.8; O2SAT 95–97
[2016-11-26 06:07] LABS: BASOPHIL % 0.4 % (0.0-2.0); EOSINOPHIL # 0.1 TH/MM3 (0-0.4); EOSINOPHIL % 1.7 % (0.0-4.0); HEMATOCRIT 23.5 % (35.0-46.0); HEMO FLAGS DIFF FINAL; LYMPH % 25.2 % (9.0-44.0); MEAN CELL VOLUME 81.3 FL (80.0-100.0); MEAN CORPUSCULAR HEMOGLOBIN 27.2 PG (27.0-34.0); MEAN CORPUSCULAR HGB CONC 33.4 % (32.0-36.0); MONO % 8.4 % (0.0-8.0); NEUT % 64.3 % (16.0-70.0); PLATELET COUNT 173 TH/MM3 (150-450); RED BLOOD COUNT 2.89 MIL/MM3 (4.00-5.30); WHITE BLOOD COUNT 7.7 TH/MM3 (4.0-11.0)
[2016-11-26 06:13] LABS: PROTHROMBIN TIME - PATIENT 11.5 SEC (9.8-11.6)
[2016-11-26] MEDS: LEVOTHYROXINE SODIUM 100 MCG TAB PO SCH (06:29)
[2016-11-26 06:33] LABS: BICARBONATE 26.2 MEQ/L (21.0-32.0); POTASSIUM 3.3 MEQ/L (3.5-5.1)
[2016-11-26] MEDS ORDERED: POTASSIUM CHLORIDE 25 MEQ EFFERVESCENT TAB PO ONE (08:45)
[2016-11-26] MEDS: risperiDONE 1 MG TAB PO SCH (09:48)
[2016-11-26] MEDS: PANTOPRAZOLE SOD 40 MG DELAYED RELEASE TAB PO SCH (09:48)
[2016-11-26] MEDS: medroxyPROGESTERone ACETATE 10 MG TAB PO SCH (09:48)
[2016-11-26] MEDS: FERROUS SULFATE 325 MG (65 MG ELEMENTAL IRON) TAB PO SCH ×2 (09:48→21:00)
[2016-11-26] MEDS: amLODIPine BESYLATE 5 MG TAB PO SCH (09:48)
[2016-11-26] MEDS: LISINOPRIL 20 MG TAB PO SCH (09:48)
[2016-11-26] MEDS: GABAPENTIN 400 MG CAP PO SCH ×2 (09:48→21:00)
[2016-11-26] MEDS: FLUDROCORTISONE ACETATE 0.1 MG TAB PO SCH (09:48)
[2016-11-26] MEDS: CITALOPRAM HYDROBROMIDE 40 MG TAB PO SCH (09:49)
[2016-11-26] MEDS: SODIUM CHLORIDE 0.9% FLUSH 10 ML FLUSH IV FLUSH SCH ×2 (09:49→21:00)
--- NOTE | 2016-11-26 11:57 | HHI.FPPN ---
Subjective Remarks Discussed with nurse, , patient. Has had 3 dark bowel movements since yesterday. understands GI is planning on performing a pill camera outpatient test. Patient feels better this morning than yesterday. Denies fever, chills, nausea, vomiting. Objective Vitals Vital Signs Date Time Temp Pulse Resp B/P Pulse Ox O2 Delivery O2 Flow Rate FiO2 11/26/16 08:00 97.7 82 16 152/88 95 11/26/16 08:00 82 11/26/16 04:32 99.8 93 16 140/80 96 11/26/16 00:09 97.3 83 16 125/70 96 11/25/16 20:38 98.3 93 16 135/72 96 11/25/16 20:01 94 11/25/16 16:00 98.3 84 18 150/98 99 11/25/16 12:00 97.8 74 20 146/75 98 I/O 11/25/16 11/25/16 11/25/16 11/26/16 11/26/16 11/26/16 07:00 15:00 23:00 07:00 15:00 23:00 Intake Total 404 ml 250 ml 1736 ml Balance 404 ml 250 ml 1736 ml Intake Oral 250 ml 150 ml IV Total 404 ml 1586 ml # Voids 2 2 1 2 # Bowel Movements 2 3 1 2 Result Diagram: 11/26/16 0359 11/26/16 0359 Objective Remarks GENERAL: Pleasant but chronically ill-appearing female, sitting up in bed eating breakfast SKIN: Stage 1 pressure ulcer on the sacrum, skin is intact there is some erythema and tenderness HEAD: Atraumatic. Normocephalic. NECK: Trachea midline. No JVD or lymphadenopathy. Supple, nontender, no meningeal signs. CARDIOVASCULAR: Regular rate and rhythm without murmurs, gallops, or rubs. RESPIRATORY: Clear to auscultation. Breath sounds equal bilaterally. No wheezes , rales, or rhonchi. GASTROINTESTINAL: Abdomen soft, non-tender, nondistended. MUSCULOSKELETAL: Extremities without clubbing, cyanosis, or edema. NEUROLOGICAL: Awake and alert 3. Slow speech. A/P Assessment and Plan 56-year-old female with previous history of abnormal vaginal bleeding returns with supratherapeutic INR at 3.4, and continued vaginal bleeding passing large clots. Previous transvaginal ultrasound revealed endometrial stripe less than 3. She will be admitted for red blood cell transfusion, gynecology consult. Palliative consulted to help with goal clarification and symptom management. GI consulted for anemia and black stools. Discharge Planning DC to [facility] facility pending stable hemoglobin and continued improvement. Problem List: (1) GI bleed Status: Acute Plan: Hemoccult-positive. Previously on Coumadin, then switched to xarelto, currently on Coumadin 3 mg daily at 1600 Repeat H&H at 1800. Transfuse 1-2 units if downtrending. GI following. Recommends outpatient pill camera - If continues to have bleeding will consider colonoscopy. EGD 11/23: esophagitis erythematous gastritis.Gastric mucosa on biopsy shows mild chronic inflammation, negative helicobacter Cont PPI, avoid NSAIDs. History: GD 08/24/16---> gastric polyp, path hyperplastic polyp. Colonoscopy ---> normal. (2) Vaginal bleeding, abnormal Status: Acute Plan: Resolved. Likely secondary to supratherapeutic INR of 3.4 on arrival EGG SORTER consulted, appreciate evaluation and recommendations - EGG SORTER reviewed previous ultrasound that showed fibroids and 3 mm endometrial stripe, does not feel the fibroids are contributing to vaginal bleeding - Provera 10 mg by mouth daily (day #6 of 14) Monitor daily CBCs and transfuse as needed Counseled importance of following with a EGG SORTER as an outpatient (3) Recurrent UTI Status: Acute Plan: Patient has a history of frequent UTIs. 11/19 urine culture klebsiella, pansensitive Continue ceftriaxone 1 g every 24 hours (started 11/20- ) (4) Anemia Status: Acute Plan: On admission hemoglobin was 7.0, currently downtrending at 7.8. H&H pending at 1800. If downtrending transfuse 1-2 units. History: Transfuse 2 units PRBCs on 11/19 and treatment as above for vaginal bleeding - Monitor daily CBCs and transfuse as needed (5) Acute renal failure Status: Resolved Plan: Improving. (6) Supratherapeutic INR Status: Acute Plan: Presented with supertherapeutic INR on admission. Was switched to xarelto. Due to GI bleed, lengthy discussion with patient, will place patient back on Coumadin at lower dose 2.5 mg with goal INR of close to 2 - INR 5/2 is 1.2 (7) Pressure ulcer Status: Acute Plan: Physical exam, and history reveals stage I/2 pressure ulcer at the sacrum , and bilateral ankle. Wound care nurse consulted. Offload areas as able. (8) History of CVA (cerebrovascular accident) Status: Chronic Plan: History of CVA 3 with persistent right-sided deficits. Resumed coumadin 5/4 at 3 mg daily Follow INR. Recheck INR as outpatient. Follows with neurology as an outpatient. (9) FEN/PPX Status: Acute Plan: Fluids: HLIV Electrolytes: Monitor and replace when necessary Nutrition: Regular diet as tolerated. Prophylaxis: Coumadin 2.5 mg daily Bilat SCDs Chronic medical problems: History of CVA: See above regarding warfarin management. Type 2 diabetes: Hold home metformin. Sliding scale insulin while inpatient. Recent femoral neck fracture: We'll provide PT while inpatient. Morphine 2 mg every 3 hours when necessary pain 6-10. Depression: Continue home citalopram 40 mg by mouth daily. Vitamin D deficiency: Continue current management as an outpatient. Hyperlipidemia: Continue simvastatin. Hypothyroidism: Continue levothyroxine 100 MCG daily Hypertension: Amlodipine 5 mg by mouth daily; she does have a history of labile blood pressures. Carefully monitor. History of adrenal insufficiency: Further workup with endocrinology was recommended as an outpatient. Continue fludrocortisone 0.1 mg by mouth daily. Problem Qualifiers (1) Anemia: Qualified Code: D64.9 - Anemia, unspecified type (2) Acute renal failure: Qualified Code: N17.9 - Acute renal failure, unspecified acute renal failure type Ralf Trinidad MD R2 November 26, 2016 11:57
--- NOTE | 2016-11-26 12:02 | HHI.GIFU ---
Subjective Remarks Pt in bed, in no apparent distress. Denies n/v, abd pain. Per RN she is still having black stools, had some last night. (Dacia Miranda) Objective Vitals I&O Vital Signs Date Time Temp Pulse Resp B/P Pulse Ox O2 Delivery O2 Flow Rate FiO2 11/26/16 08:00 97.7 82 16 152/88 95 11/26/16 08:00 82 11/26/16 04:32 99.8 93 16 140/80 96 11/26/16 00:09 97.3 83 16 125/70 96 11/25/16 20:38 98.3 93 16 135/72 96 11/25/16 20:01 94 11/25/16 16:00 98.3 84 18 150/98 99 11/25/16 12:00 97.8 74 20 146/75 98 I/O 11/25/16 11/25/16 11/25/16 11/26/16 11/26/16 11/26/16 07:00 15:00 23:00 07:00 15:00 23:00 Intake Total 404 ml 250 ml 1736 ml Balance 404 ml 250 ml 1736 ml Intake Oral 250 ml 150 ml IV Total 404 ml 1586 ml # Voids 2 2 1 2 # Bowel Movements 2 3 1 2 Laboratory Laboratory Tests Test 11/26/16 03:59 White Blood Count 7.7 Red Blood Count 2.89 Hemoglobin 7.8 Hematocrit 23.5 Mean Corpuscular Volume 81.3 Mean Corpuscular Hemoglobin 27.2 Mean Corpuscular Hemoglobin 33.4 Concent Red Cell Distribution Width 15.0 Platelet Count 173 Mean Platelet Volume 8.9 Neutrophils (%) (Auto) 64.3 Lymphocytes (%) (Auto) 25.2 Monocytes (%) (Auto) 8.4 Eosinophils (%) (Auto) 1.7 Basophils (%) (Auto) 0.4 Neutrophils # (Auto) 5.0 Lymphocytes # (Auto) 2.0 Monocytes # (Auto) 0.7 Eosinophils # (Auto) 0.1 Basophils # (Auto) 0.0 CBC Comment DIFF FINAL Differential Comment Prothrombin Time 11.5 Prothromb Time International 1.0 Ratio Sodium Level 144 Potassium Level 3.3 Chloride Level 110 Carbon Dioxide Level 26.2 Anion Gap 8 Blood Urea Nitrogen 13 Creatinine 0.79 Estimat Glomerular Filtration 75 Rate Random Glucose 90 Calcium Level 8.4 Date/Time Procedure Status Source Growth 11/22/16 12:00 Stool Occult Blood (JANAE) - Final Complete Stool Stool HEMOCCULT POSITIVE Imaging Last Impressions Upper GI and Small Bowel X-Ray 11/25/16 0000 Signed Impressions: Service Date/Time: November 09:56 - CONCLUSION: 1. Findings are most typical of small and large bowel ileus. 2. Short segment narrowing of the distal ileum, estimated 20 cm proximal to the ileocecal valve. The etiology of this is uncertain. I don't see a mass or correlative inflammatory changes on the CT back in July. An up-to-date CT of the abdomen and pelvis is recommended. Bal Watkins MD Head CT 11/19/16 1156 Signed Impressions: Service Date/Time: Saturday, November 19, 2016 13:23 - CONCLUSION: 1. No acute hemorrhage or mass effect. 2. Stable small meningioma again noted along the right parietal convexities. 3. Atrophy and old lacunar infarcts. Shan Cardenas MD Chest X-Ray 11/19/16 0000 Signed Impressions: Service Date/Time: Saturday, November 19, 2016 13:28 - CONCLUSION: No acute disease. Shan Cardenas MD Physical Exam HEENT: EOMI; normocephalic; atraumatic; no jaundice. CHEST: Chest is clear to auscultation and percussion. CARDIAC: Regular rate and rhythm with no murmur gallop or rubs. ABDOMEN: Soft, nondistended, nontender; no hepatosplenomegaly; bowel sounds are present in all four quadrants. EXTREMITIES: No clubbing, cyanosis, or edema. SKIN: pale; no rash; no jaundice. DIRECTOR OF SUSTAINABILITY PROGRAMS: Lethargic. (Dacia Miranda) Assessment and Plan Plan ASSESSMENT - anemia, tarry stool - 7.8, 23.5 decreasing. Still with tarry stools, RN said she had BM last night and was black. Of note pt is on iron supplements but she had hemoccult pos 11/22. SBFT 11/25/16 -->1. Findings are most typical of small and large bowel ileus. 2. Short segment narrowing of the distal ileum, estimated 20 cm proximal to the ileocecal valve. The etiology of this is uncertain. I don't see a mass or correlative inflammatory changes on the CT back in July. An up-to-date CT of the abdomen and pelvis is recommended. Pt does not appear to be having symptoms of ileus at this time and she says she is feeling better today than before. Will do f/u CT to r/o ileus. s/p EGD ---> LA class A esophagitis, mdoerate erythematous gastritis. Colonoscopy 08/24/16 normal, EGD 08/24/16 ---> gastric polyp, path hyperplastic polyp. Per RN vaginal bleeding has ceased. PLAN: - consider f/u CT abd - Colonoscopy tuesday - Mg Citrate prep - clears tuesday - NPO after midnight tuesday night - obtain consents - continue to monitor HH - transfuse as necessary - supportive care - further recommendations based on results of above THis pt seen by myself and Dr Paredes and this note is written on his behalf. (Dacia Miranda) Physician Comments Seen and examined with CHRIS, sbft noted. Repeat ct scan ordered. Colonoscopy on tuesday. (Owen Paredes MD) Dacia Miranda November 26, 2016 12:02 Owen Paredes MD November 26, 2016 15:30
[2016-11-26] MEDS: SODIUM CHLOR 0.9% 1000 ML INJ 1,000 ML IV SCH ×2 (12:22→19:52)
[2016-11-26] MEDS ORDERED: DIATRIZOATE MEGLUM/DIATRIZOATE SOD 9 ML CUP PO ONE (16:45)
[2016-11-26] MEDS: WARFARIN SOD 3 MG TAB PO SCH (17:15)
[2016-11-26 19:04] LABS: HEMATOCRIT 23.9 % (35.0-46.0); REVIEW FLAG FINAL
[2016-11-26] MEDS: PRAVASTATIN SOD 80 MG TAB PO SCH (21:00)
[2016-11-27] VITALS (9 sets, daily range): BP systolic 126–191; BP diastolic 72–86; PULSE 70–85; RESP 16–20; TEMP 96.7–98.4; O2SAT 96–97
[2016-11-27] MEDS: cefTRIAXone INJ 1,000 MG in SODIUM CHLORIDE 0.9% INJ 100 ML IV SCH (02:04)
[2016-11-27] MEDS: SODIUM CHLOR 0.9% 1000 ML INJ 1,000 ML IV SCH ×2 (05:52→17:34)
[2016-11-27] MEDS: LEVOTHYROXINE SODIUM 100 MCG TAB PO SCH (06:31)
[2016-11-27 07:35] LABS: AUTOMATED NEUTROPHIL # 5.1 TH/MM3 (1.8-7.7); BASOPHIL % 0.7 % (0.0-2.0); EOSINOPHIL # 0.1 TH/MM3 (0-0.4); EOSINOPHIL % 1.9 % (0.0-4.0); HEMATOCRIT 24.2 % (35.0-46.0); HEMO FLAGS DIFF FINAL; LYMPH % 20.7 % (9.0-44.0); LYMPHOCYTE # 1.5 TH/MM3 (1.0-4.8); MEAN CELL VOLUME 81.4 FL (80.0-100.0); MEAN CORPUSCULAR HEMOGLOBIN 27.4 PG (27.0-34.0); MEAN CORPUSCULAR HGB CONC 33.7 % (32.0-36.0); MONO % 6.9 % (0.0-8.0); NEUT % 69.8 % (16.0-70.0); PLATELET COUNT 175 TH/MM3 (150-450); RED BLOOD COUNT 2.97 MIL/MM3 (4.00-5.30); RED CELL DISTRIBUTION WIDTH 15.1 % (11.6-17.2); WHITE BLOOD COUNT 7.2 TH/MM3 (4.0-11.0)
[2016-11-27 07:40] LABS: PROTHROMBIN TIME - PATIENT 11.3 SEC (9.8-11.6)
[2016-11-27] MEDS ORDERED: METFORMIN HOLD POST IV CONTRAST SCH (07:57)
[2016-11-27 08:05] LABS: ALKALINE PHOSPHATASE 68 U/L (45-117); ALT (GPT) 9 U/L (10-53); ANION GAP 9 MEQ/L (5-15); AST (GOT) 10 U/L (15-37); BICARBONATE 25.9 MEQ/L (21.0-32.0); BLOOD UREA NITROGEN 14 MG/DL (7-18); CHLORIDE 106 MEQ/L (98-107); GLOMERULAR FILTRATION RATE 80 ML/MIN (>89); POTASSIUM 3.5 MEQ/L (3.5-5.1); SODIUM (NA) 141 MEQ/L (136-145); TOTAL BILIRUBIN ADULT 0.3 MG/DL (0.2-1.0)
[2016-11-27] MEDS ORDERED: IOHEXOL 350 MG/ML 10 ML VIAL (for RAD DIAG) IV ONE (08:08)
--- NOTE | 2016-11-27 08:27 | RADRPT ---
EXAM DATE/TIME: 11/27/2016 07:51 [facility] COMPARISON: UGI WITH SMALL BOWEL SERIES, November 25, 2016, 9:56. CT ABDOMEN & PELVIS W/O CONTRAST, August 20, 2016, 11:28. INDICATIONS : Evaluate distal ileum abnormality on prior CAT scan. IV CONTRAST: 90 cc Omnipaque 350 (iohexol) IV ORAL CONTRAST: Prescribed oral contrast ingested. RADIATION DOSE: 16.09 CTDIvol (mGy) MEDICAL HISTORY : Cardiovascular disease. Hypertension. Diabetes mellitus type 2.Lupus. SURGICAL HISTORY : Cholecystectomy. Right oophorectomy. ENCOUNTER: Initial ACUITY: 1 day PAIN SCALE: 0/10 LOCATION: lower quadrant TECHNIQUE: Volumetric scanning of the abdomen and pelvis was performed. Using automated exposure control and ad justment of the mA and/or kV according to patient size, radiation dose was kept as low as reasonably achievable to obtain optimal diagnostic quality images. FINDINGS: LOWER LUNGS: The visualized lower lungs are clear. LIVER: Homogeneous density without lesion. There is apparent postoperative change involving the lateral live r. There is no dilation of the biliary tree. Status post cholecystectomy. SPLEEN: Normal size without lesion. PANCREAS: Within normal limits. KIDNEYS: Normal in size and shape. There is no mass, stone or hydronephrosis. ADRENAL GLANDS: The right adrenal gland remain unremarkable. There is a stable fat density 1.8 cm lesion in the left adrenal gland. VASCULAR: There is no aortic aneurysm. BOWEL/MESENTERY: A large amount of dense barium in the colon with significant streak artifact limiting visualization. The distal ileum is not well evaluated due to the streak artifact. There is no gross abnormality. The re are multiple loops of nondilated air-containing small bowel with small air-fluid levels. There is no free intraperitoneal air or fluid. ABDOMINAL WALL: Within normal limits. RETROPERITONEUM: There is no lymphadenopathy. BLADDER: No wall thickening or mass. REPRODUCTIVE: Within normal limits. INGUINAL: There is no lymphadenopathy or hernia. MUSCULOSKELETAL: Within normal limits for patient age. CONCLUSION: 1. The distal ileum is not well-visualized secondary to streak artifact from dense barium in the cecu m. Nonspecific, nonobstructive bowel gas pattern most consistent with an ileus or gastroenteritis. Th ere is dense barium with streak artifact leading to suboptimal visualization. 2. Stable appearing left adrenal lipoma. 3. Status post cholecystectomy. 4. Stable appearance of the liver with apparent postoperative change. Shan Cardenas MD on November 27, 2016 at 8:20 Board Certified Radiologist. This report was verified electronically.
[2016-11-27] MEDS: FLUDROCORTISONE ACETATE 0.1 MG TAB PO SCH (08:56)
[2016-11-27] MEDS: LISINOPRIL 20 MG TAB PO SCH (08:56)
[2016-11-27] MEDS: GABAPENTIN 400 MG CAP PO SCH ×3 (08:56→18:00)
[2016-11-27] MEDS: CITALOPRAM HYDROBROMIDE 40 MG TAB PO SCH (08:56)
[2016-11-27] MEDS: FERROUS SULFATE 325 MG (65 MG ELEMENTAL IRON) TAB PO SCH ×2 (08:57→21:38)
[2016-11-27] MEDS: PANTOPRAZOLE SOD 40 MG DELAYED RELEASE TAB PO SCH (08:57)
[2016-11-27] MEDS: risperiDONE 1 MG TAB PO SCH (08:57)
[2016-11-27] MEDS: amLODIPine BESYLATE 5 MG TAB PO SCH (08:57)
[2016-11-27] MEDS: SODIUM CHLORIDE 0.9% FLUSH 10 ML FLUSH IV FLUSH SCH ×2 (09:00→21:00)
[2016-11-27] MEDS: medroxyPROGESTERone ACETATE 10 MG TAB PO SCH (09:00)
[2016-11-27] MEDS ORDERED: COUM3TAB PO (09:11)
--- NOTE | 2016-11-27 10:31 | HHI.FPPN ---
Subjective Remarks Patient doing a little better this morning. Has been at bedside. would like physical therapy to get her out of bed and work with her as they did as an outpatient. They understand she is going for colonoscopy on Tuesday. They would like further knowledge on the possibility of what a pill camera entails. No fever, chills, nausea, vomiting. Objective Vitals Vital Signs Date Time Temp Pulse Resp B/P Pulse Ox O2 Delivery O2 Flow Rate FiO2 11/27/16 07:50 96.7 79 20 175/83 96 11/27/16 04:32 98.4 80 16 138/78 96 11/27/16 00:51 146/86 11/27/16 00:00 97.4 76 18 191/86 97 11/26/16 20:25 98.5 79 16 148/82 95 11/26/16 20:00 85 11/26/16 16:00 96.4 80 20 136/82 97 11/26/16 12:00 98.0 82 20 145/65 97 I/O 11/26/16 11/26/16 11/26/16 11/27/16 11/27/16 11/27/16 07:00 15:00 23:00 07:00 15:00 23:00 Intake Total 1736 ml 420 ml 1064 ml 0 ml Balance 1736 ml 420 ml 1064 ml 0 ml Intake Oral 150 ml 420 ml 200 ml 0 ml IV Total 1586 ml 864 ml # Voids 2 2 1 2 # Bowel Movements 2 1 1 Result Diagram: 11/27/16 0719 11/27/16 0719 Imaging Last Impressions Abdomen/Pelvis CT 11/27/16 0000 Signed Impressions: Service Date/Time: Sunday, November 27, 2016 07:51 - CONCLUSION: 1. The distal ileum is not well-visualized secondary to streak artifact from dense barium in the cecum. Nonspecific, nonobstructive bowel gas pattern most consistent with an ileus or gastroenteritis. There is dense barium with streak artifact leading to suboptimal visualization. 2. Stable appearing left adrenal lipoma. 3. Status post cholecystectomy. 4. Stable appearance of the liver with apparent postoperative change. Shan Cardenas MD Upper GI and Small Bowel X-Ray 11/25/16 0000 Signed Impressions: Service Date/Time: November 09:56 - CONCLUSION: 1. Findings are most typical of small and large bowel ileus. 2. Short segment narrowing of the distal ileum, estimated 20 cm proximal to the ileocecal valve. The etiology of this is uncertain. I don't see a mass or correlative inflammatory changes on the CT back in July. An up-to-date CT of the abdomen and pelvis is recommended. Bal Watkins MD Head CT 11/19/16 1156 Signed Impressions: Service Date/Time: Saturday, November 19, 2016 13:23 - CONCLUSION: 1. No acute hemorrhage or mass effect. 2. Stable small meningioma again noted along the right parietal convexities. 3. Atrophy and old lacunar infarcts. Shan Cardenas MD Chest X-Ray 11/19/16 0000 Signed Impressions: Service Date/Time: Saturday, November 19, 2016 13:28 - CONCLUSION: No acute disease. Shan Cardenas MD Objective Remarks GENERAL: Pleasant but chronically ill-appearing female sitting upright. In no acute distress. SKIN: Stage 1 pressure ulcer on the sacrum, skin is intact there is some erythema and tenderness HEAD: Atraumatic. Normocephalic. NECK: Trachea midline. No JVD or lymphadenopathy. Supple, nontender, no meningeal signs. CARDIOVASCULAR: Regular rate and rhythm without murmurs, gallops, or rubs. RESPIRATORY: Clear to auscultation. Breath sounds equal bilaterally. No wheezes , rales, or rhonchi. GASTROINTESTINAL: Abdomen soft, non-tender, nondistended. MUSCULOSKELETAL: Extremities without clubbing, cyanosis, or edema. NEUROLOGICAL: Awake and alert 3. Slow speech. A/P Assessment and Plan 56-year-old female with previous history of abnormal vaginal bleeding returns with supratherapeutic INR at 3.4, and continued vaginal bleeding passing large clots. Previous transvaginal ultrasound revealed endometrial stripe less than 3. She will be admitted for red blood cell transfusion, gynecology consult. Palliative consulted to help with goal clarification and symptom management. GI consulted for anemia and black stools. Discharge Planning DC to longterm facility pending stable hemoglobin and continued improvement. Problem List: (1) GI bleed Status: Acute Plan: Hemoccult-positive. Previously on Coumadin, then switched to xarelto, currently on Coumadin 3 mg daily at 1600 GI following. Colonoscopy for Tuesday. Recommends outpatient pill camera pending colonoscopy results. EGD 11/23: esophagitis erythematous gastritis.Gastric mucosa on biopsy shows mild chronic inflammation, negative helicobacter Cont PPI, avoid NSAIDs. History: GD 08/24/16---> gastric polyp, path hyperplastic polyp. Colonoscopy ---> normal. (2) Vaginal bleeding, abnormal Status: Acute Plan: Resolved. Likely secondary to supratherapeutic INR of 3.4 on arrival MOLD TECHNICIAN consulted, appreciate evaluation and recommendations - MOLD TECHNICIAN reviewed previous ultrasound that showed fibroids and 3 mm endometrial stripe, does not feel the fibroids are contributing to vaginal bleeding - Provera 10 mg by mouth daily (day #7 of 14) Monitor daily CBCs and transfuse as needed Counseled importance of following with a MOLD TECHNICIAN as an outpatient (3) Anemia Status: Acute Plan: On admission hemoglobin was 7.0, currently stable. History: Transfuse 2 units PRBCs on 11/19 and treatment as above for vaginal bleeding - Monitor daily CBCs and transfuse as needed (4) Acute renal failure Status: Resolved Plan: Improving. (5) Supratherapeutic INR Status: Acute Plan: Presented with supertherapeutic INR on admission. Was switched to xarelto. Due to GI bleed, lengthy discussion with patient, will place patient back on Coumadin at lower dose 3 mg with goal INR of close to 2 -Patient will need INR ordered when discharged to longterm facility (6) Pressure ulcer Status: Acute Plan: Physical exam, and history reveals stage I/2 pressure ulcer at the sacrum , and bilateral ankle. Wound care nurse consulted. Offload areas as able. (7) History of CVA (cerebrovascular accident) Status: Chronic Plan: History of CVA 3 with persistent right-sided deficits. Resumed coumadin 5/4 at 3 mg daily Follow INR. Recheck INR as outpatient. Follows with neurology as an outpatient. (8) FEN/PPX Status: Acute Plan: Fluids: HLIV Electrolytes: Monitor and replace when necessary Nutrition: Regular diet as tolerated. Prophylaxis: Coumadin 2.5 mg daily Bilat SCDs Chronic medical problems: History of CVA: See above regarding warfarin management. Type 2 diabetes: Hold home metformin. Sliding scale insulin while inpatient. Recent femoral neck fracture: We'll provide PT while inpatient. Morphine 2 mg every 3 hours when necessary pain 6-10. Depression: Continue home citalopram 40 mg by mouth daily. Vitamin D deficiency: Continue current management as an outpatient. Hyperlipidemia: Continue simvastatin. Hypothyroidism: Continue levothyroxine 100 MCG daily Hypertension: Amlodipine 5 mg by mouth daily; she does have a history of labile blood pressures. Carefully monitor. History of adrenal insufficiency: Further workup with endocrinology was recommended as an outpatient. Continue fludrocortisone 0.1 mg by mouth daily. Problem Qualifiers (1) Anemia: Qualified Code: D64.9 - Anemia, unspecified type (2) Acute renal failure: Qualified Code: N17.9 - Acute renal failure, unspecified acute renal failure type Ralf Trinidad MD R2 November 27, 2016 10:31 Problem Qualifiers (1) Anemia: Qualified Code: D64.9 - Anemia, unspecified type (2) Acute renal failure: Qualified Code: N17.9 - Acute renal failure, unspecified acute renal failure type Ralf Trinidad MD R2 November 27, 2016 10:31
[2016-11-27] MEDS ORDERED: GLUCAGON 1 MG/ML VIAL OTHER PRN (13:00)
[2016-11-27] MEDS ORDERED: DEXTROSE 50% IN WATER 50 ML VIAL(D50) IV PUSH PRN (13:00)
--- NOTE | 2016-11-27 14:46 | HHI.GIFU ---
Subjective Remarks Patient is resting in bed denies nausea, vomiting or abd pain. by bed side states she eat good lunch. According to nurse, no melena today or yesterday. had lots of questions that were answered to his satisfaction (Nery Forman) Objective Vitals I&O Vital Signs Date Time Temp Pulse Resp B/P Pulse Ox O2 Delivery O2 Flow Rate FiO2 11/27/16 12:00 97.1 82 18 133/76 96 11/27/16 08:00 83 11/27/16 07:50 96.7 79 20 175/83 96 11/27/16 04:32 98.4 80 16 138/78 96 11/27/16 00:51 146/86 11/27/16 00:00 97.4 76 18 191/86 97 11/26/16 20:25 98.5 79 16 148/82 95 11/26/16 20:00 85 11/26/16 16:00 96.4 80 20 136/82 97 I/O 11/26/16 11/26/16 11/26/16 11/27/16 11/27/16 11/27/16 07:00 15:00 23:00 07:00 15:00 23:00 Intake Total 1736 ml 420 ml 1064 ml 0 ml Balance 1736 ml 420 ml 1064 ml 0 ml Intake Oral 150 ml 420 ml 200 ml 0 ml IV Total 1586 ml 864 ml # Voids 2 2 1 2 # Bowel Movements 2 1 1 Laboratory Laboratory Tests Test 11/26/16 11/27/16 18:32 07:19 Hemoglobin 8.0 8.1 Hematocrit 23.9 24.2 White Blood Count 7.2 Red Blood Count 2.97 Mean Corpuscular Volume 81.4 Mean Corpuscular Hemoglobin 27.4 Mean Corpuscular Hemoglobin 33.7 Concent Red Cell Distribution Width 15.1 Platelet Count 175 Mean Platelet Volume 8.3 Neutrophils (%) (Auto) 69.8 Lymphocytes (%) (Auto) 20.7 Monocytes (%) (Auto) 6.9 Eosinophils (%) (Auto) 1.9 Basophils (%) (Auto) 0.7 Neutrophils # (Auto) 5.1 Lymphocytes # (Auto) 1.5 Monocytes # (Auto) 0.5 Eosinophils # (Auto) 0.1 Basophils # (Auto) 0.0 CBC Comment DIFF FINAL Differential Comment Prothrombin Time 11.3 Prothromb Time International 1.0 Ratio Sodium Level 141 Potassium Level 3.5 Chloride Level 106 Carbon Dioxide Level 25.9 Anion Gap 9 Blood Urea Nitrogen 14 Creatinine 0.75 Estimat Glomerular Filtration 80 Rate Random Glucose 90 Calcium Level 8.3 Total Bilirubin 0.3 Aspartate Amino Transf 10 (AST/SGOT) Alanine Aminotransferase 9 (ALT/SGPT) Alkaline Phosphatase 68 Total Protein 5.7 Albumin 2.4 Imaging Last Impressions Abdomen/Pelvis CT 11/27/16 0000 Signed Impressions: Service Date/Time: Sunday, November 27, 2016 07:51 - CONCLUSION: 1. The distal ileum is not well-visualized secondary to streak artifact from dense barium in the cecum. Nonspecific, nonobstructive bowel gas pattern most consistent with an ileus or gastroenteritis. There is dense barium with streak artifact leading to suboptimal visualization. 2. Stable appearing left adrenal lipoma. 3. Status post cholecystectomy. 4. Stable appearance of the liver with apparent postoperative change. Shan Cardenas MD Upper GI and Small Bowel X-Ray 11/25/16 0000 Signed Impressions: Service Date/Time: November 09:56 - CONCLUSION: 1. Findings are most typical of small and large bowel ileus. 2. Short segment narrowing of the distal ileum, estimated 20 cm proximal to the ileocecal valve. The etiology of this is uncertain. I don't see a mass or correlative inflammatory changes on the CT back in July. An up-to-date CT of the abdomen and pelvis is recommended. Bal Watkins MD Head CT 11/19/16 1156 Signed Impressions: Service Date/Time: Saturday, November 19, 2016 13:23 - CONCLUSION: 1. No acute hemorrhage or mass effect. 2. Stable small meningioma again noted along the right parietal convexities. 3. Atrophy and old lacunar infarcts. Shan Cardenas MD Chest X-Ray 11/19/16 0000 Signed Impressions: Service Date/Time: Saturday, November 19, 2016 13:28 - CONCLUSION: No acute disease. Shan Cardenas MD Physical Exam HEENT: EOMI; normocephalic; atraumatic; no jaundice. CHEST: Chest is clear to auscultation and percussion. CARDIAC: Regular rate and rhythm with no murmur gallop or rubs. ABDOMEN: Soft, nondistended, nontender; no hepatosplenomegaly; bowel sounds are present in all four quadrants. EXTREMITIES: No clubbing, cyanosis, or edema. SKIN: pale; no rash; no jaundice. DIRECTOR OPERATING ROOM: Lethargic. (Nery Forman) Assessment and Plan Plan ASSESSMENT - anemia, tarry stool/ heme (+) stools - 8.1/24.2 stable. no melena today or yesterday Ct on (11/27/16) --->The distal ileum is not well-visualized secondary to streak artifact from dense barium in the cecum. Nonspecific, nonobstructive bowel gas pattern most consistent with an ileus or gastroenteritis. There is dense barium with streak artifact leading to suboptimal visualization. 2. Stable appearing left adrenal lipoma. 3. Status post cholecystectomy. 4. Stable appearance of the liver with apparent postoperative change. SBFT 11/25/16 -->1. Findings are most typical of small and large bowel ileus. 2. Short segment narrowing of the distal ileum, estimated 20 cm proximal to the ileocecal valve. The etiology of this is uncertain. I don't see a mass or correlative inflammatory changes on the CT back in July. An up-to-date CT of the abdomen and pelvis is recommended. Pt does not appear to be having symptoms of ileus at this time and she says she is feeling better today than before. Will do f/u CT to r/o ileus. s/p EGD ---> LA class A esophagitis, moderate erythematous gastritis. Colonoscopy 08/24/16 normal, EGD 08/24/16 ---> gastric polyp, path hyperplastic polyp. Per RN vaginal bleeding has ceased. PLAN: - REINALDO - Colonoscopy Tuesday - Mg Citrate prep - clears tuesday - NPO after midnight tuesday night - obtain consents - continue to monitor HH - transfuse as necessary - supportive care - further recommendations based on results of above THis pt seen by myself and Dr Paredes and this note is written on his behalf. (Nery Forman) Physician Comments Seen and examined with [employer] TM1 DEVELOPER, No bleeding reported today. CT/SBFT reviewed. Colonoscopy planned for tuesday. (Owen Paredes MD) Nery Forman [facility] November 27, 2016 14:46 Owen Paredes MD November 27, 2016 15:34
[2016-11-27] MEDS: INSULIN NovoLIN REGULAR SUPPLEMENTAL SCALE SQ SCH ×2 (16:00→21:00)
[2016-11-27] MEDS: WARFARIN SOD 3 MG TAB PO SCH (17:28)
[2016-11-27] MEDS: PRAVASTATIN SOD 80 MG TAB PO SCH (21:38)
[2016-11-28] VITALS (8 sets, daily range): BP systolic 115–142; BP diastolic 73–89; PULSE 70–78; RESP 15–18; TEMP 96.4–98.9; O2SAT 92–98
[2016-11-28] MEDS: SODIUM CHLOR 0.9% 1000 ML INJ 1,000 ML IV SCH ×2 (03:00→12:16)
[2016-11-28] MEDS: LEVOTHYROXINE SODIUM 100 MCG TAB PO SCH (05:19)
[2016-11-28] MEDS: INSULIN NovoLIN REGULAR SUPPLEMENTAL SCALE SQ SCH ×4 (05:23→21:00)
[2016-11-28 06:35] LABS: AUTOMATED NEUTROPHIL # 3.3 TH/MM3 (1.8-7.7); BASOPHIL % 0.6 % (0.0-2.0); EOSINOPHIL # 0.2 TH/MM3 (0-0.4); EOSINOPHIL % 2.9 % (0.0-4.0); HEMATOCRIT 22.4 % (35.0-46.0); HEMO FLAGS DIFF FINAL; LYMPH % 30.8 % (9.0-44.0); LYMPHOCYTE # 1.8 TH/MM3 (1.0-4.8); MEAN CELL VOLUME 81.5 FL (80.0-100.0); MEAN CORPUSCULAR HGB CONC 33.2 % (32.0-36.0); MONO % 8.8 % (0.0-8.0); NEUT % 56.9 % (16.0-70.0); PLATELET COUNT 186 TH/MM3 (150-450); RED BLOOD COUNT 2.75 MIL/MM3 (4.00-5.30); RED CELL DISTRIBUTION WIDTH 14.5 % (11.6-17.2); WHITE BLOOD COUNT 5.8 TH/MM3 (4.0-11.0)
[2016-11-28 06:56] LABS: ALT (GPT) 10 U/L (10-53); ANION GAP 8 MEQ/L (5-15); AST (GOT) 7 U/L (15-37); BICARBONATE 25.9 MEQ/L (21.0-32.0); BLOOD UREA NITROGEN 15 MG/DL (7-18); CHLORIDE 109 MEQ/L (98-107); GLOMERULAR FILTRATION RATE 71 ML/MIN (>89); POTASSIUM 3.6 MEQ/L (3.5-5.1); SODIUM (NA) 143 MEQ/L (136-145)
[2016-11-28 06:58] LABS: ALKALINE PHOSPHATASE 61 U/L (45-117); TOTAL BILIRUBIN ADULT 0.2 MG/DL (0.2-1.0)
--- NOTE | 2016-11-28 07:23 | HHI.FPPN ---
Subjective Remarks Overnight there was a 10 minute episode of confusion and decreased arousability. Symptoms completely cleared. This morning she states that she feels well and has no complaints. She states that she wants to go home. Denies any bleeding and is tolerating a diet without issue. Objective Vitals Vital Signs Date Time Temp Pulse Resp B/P Pulse Ox O2 Delivery O2 Flow Rate FiO2 11/28/16 04:00 97.6 76 16 136/84 96 11/28/16 00:00 97.9 70 16 124/73 96 11/27/16 20:07 70 11/27/16 20:00 97.6 72 16 133/72 97 11/27/16 16:00 97.4 85 18 126/77 96 11/27/16 12:00 97.1 82 18 133/76 96 11/27/16 08:00 83 11/27/16 07:50 96.7 79 20 175/83 96 I/O 11/27/16 11/27/16 11/27/16 11/28/16 11/28/16 11/28/16 07:00 15:00 23:00 07:00 15:00 23:00 Intake Total 480 ml 60 ml 1277 ml Balance 480 ml 60 ml 1277 ml Intake Oral 480 ml 60 ml IV Total 1277 ml # Voids 6 2 # Bowel Movements 1 Result Diagram: 11/28/16 0600 11/28/16 0600 Objective Remarks GENERAL: Pleasant but chronically ill-appearing female sitting upright. In no acute distress. SKIN: Per prior EMR note Stage 1 pressure ulcer on the sacrum, skin is intact there is some erythema and tenderness CARDIOVASCULAR: Regular rate and rhythm without murmurs, gallops, or rubs. RESPIRATORY: Clear to auscultation. Breath sounds equal bilaterally. No wheezes , rales, or rhonchi. GASTROINTESTINAL: Abdomen soft, non-tender, nondistended. MUSCULOSKELETAL: Extremities without clubbing, cyanosis, or edema. NEUROLOGICAL: Awake and alert. Slow speech. No obvious focal deficits A/P Assessment and Plan 56-year-old female with previous history of abnormal vaginal bleeding returns with supratherapeutic INR at 3.4, and continued vaginal bleeding passing large clots. Previous transvaginal ultrasound revealed endometrial stripe less than 3. She will be admitted for red blood cell transfusion, gynecology consult. Palliative consulted to help with goal clarification and symptom management. GI consulted for anemia and black stools. Discharge Planning [facility] to [facility] facility vs [facility] with home health pending stable hemoglobin and continued improvement. aries Mendoza Problem List: (1) GI bleed Status: Acute Plan: Hemoccult-positive. Previously on Coumadin, then switched to xarelto, currently on Coumadin 3 mg daily at 1600 GI following. Colonoscopy for Tuesday. Recommends outpatient pill camera pending colonoscopy results. EGD 11/23: esophagitis erythematous gastritis.Gastric mucosa on biopsy shows mild chronic inflammation, negative helicobacter Cont PPI, avoid NSAIDs. History: GD 08/24/16---> gastric polyp, path hyperplastic polyp. Colonoscopy ---> normal. (2) Vaginal bleeding, abnormal Status: Resolved Plan: Resolved. Likely secondary to supratherapeutic INR of 3.4 on arrival OUTSIDE CONTRACTOR SALES consulted, appreciate evaluation and recommendations - OUTSIDE CONTRACTOR SALES reviewed previous ultrasound that showed fibroids and 3 mm endometrial stripe, does not feel the fibroids are contributing to vaginal bleeding - Provera 10 mg by mouth daily (day #9 of 14) Monitor daily CBCs and transfuse as needed Counseled importance of following with a OUTSIDE CONTRACTOR SALES as an outpatient (3) Anemia Status: Acute Plan: On admission hemoglobin was 7.0, currently stable. No active bleeding at this time History: Transfuse 2 units PRBCs on 11/19 and treatment as above for vaginal bleeding - Monitor daily CBCs and transfuse as needed (4) Acute renal failure Status: Resolved Plan: Improving. (5) Supratherapeutic INR Status: Resolved Plan: Presented with supertherapeutic INR on admission. Was switched to xarelto. Due to GI bleed, lengthy discussion with patient, will place patient back on Coumadin at lower dose 3 mg with goal INR of close to 2 -Patient will need INR ordered when discharged to retirement facility (6) Pressure ulcer Status: Acute Plan: Physical exam, and history reveals stage I/2 pressure ulcer at the sacrum , and bilateral ankle. Wound care nurse consulted. Offload areas as able. (7) History of CVA (cerebrovascular accident) Status: Chronic Plan: History of CVA 3 with persistent right-sided deficits. Resumed coumadin 11/25 at 3 mg daily Follow INR. Recheck INR as outpatient. Follows with neurology as an outpatient. -If patient has another episode of decreased arousability, or states that patient is acting different will order MRI for stroke evaluation (8) FEN/PPX Status: Acute Plan: Fluids: HLIV Electrolytes: Monitor and replace when necessary Nutrition: Regular diet as tolerated. Prophylaxis: Coumadin 3 mg daily Bilat SCDs Chronic medical problems: History of CVA: See above regarding warfarin management. Type 2 diabetes: Hold home metformin. Sliding scale insulin while inpatient. Recent femoral neck fracture: We'll provide PT while inpatient. Morphine 2 mg every 3 hours when necessary pain 6-10. Depression: Continue home citalopram 40 mg by mouth daily. Vitamin D deficiency: Continue current management as an outpatient. Hyperlipidemia: Continue simvastatin. Hypothyroidism: Continue levothyroxine 100 MCG daily Hypertension: Amlodipine 5 mg by mouth daily; she does have a history of labile blood pressures. Carefully monitor. History of adrenal insufficiency: Further workup with endocrinology was recommended as an outpatient. Continue fludrocortisone 0.1 mg by mouth daily. Problem Qualifiers (1) Anemia: Qualified Code: D64.9 - Anemia, unspecified type (2) Acute renal failure: Qualified Code: N17.9 - Acute renal failure, unspecified acute renal failure type Alexandra Gao MD R2 November 28, 2016 07:23
[2016-11-28] MEDS: LISINOPRIL 20 MG TAB PO SCH (09:02)
[2016-11-28] MEDS: amLODIPine BESYLATE 5 MG TAB PO SCH (09:02)
[2016-11-28] MEDS: FERROUS SULFATE 325 MG (65 MG ELEMENTAL IRON) TAB PO SCH ×2 (09:02→21:15)
[2016-11-28] MEDS: GABAPENTIN 400 MG CAP PO SCH ×3 (09:02→17:33)
[2016-11-28] MEDS: PANTOPRAZOLE SOD 40 MG DELAYED RELEASE TAB PO SCH (09:02)
[2016-11-28] MEDS: risperiDONE 1 MG TAB PO SCH (09:03)
[2016-11-28] MEDS: FLUDROCORTISONE ACETATE 0.1 MG TAB PO SCH (09:03)
[2016-11-28] MEDS: CITALOPRAM HYDROBROMIDE 40 MG TAB PO SCH (09:03)
[2016-11-28] MEDS: medroxyPROGESTERone ACETATE 10 MG TAB PO SCH (09:10)
[2016-11-28] MEDS: SODIUM CHLORIDE 0.9% FLUSH 10 ML FLUSH IV FLUSH SCH ×2 (12:15→21:00)
--- NOTE | 2016-11-28 15:04 | HHI.GIFU ---
Subjective Remarks Pt asleep. at bedside, reports that she has developed cough this morning after taking meds. sAys she is having some nausea. She has not had dark tarry stool for 2 days now. NO vomiting, abd pain, or melena. (Dacia Miranda) Objective Vitals I&O Vital Signs Date Time Temp Pulse Resp B/P Pulse Ox O2 Delivery O2 Flow Rate FiO2 11/28/16 12:49 96.4 77 18 140/83 97 11/28/16 08:00 98.9 77 18 142/89 92 11/28/16 04:00 97.6 76 16 136/84 96 11/28/16 00:00 97.9 70 16 124/73 96 11/27/16 20:07 70 11/27/16 20:00 97.6 72 16 133/72 97 11/27/16 16:00 97.4 85 18 126/77 96 I/O 11/27/16 11/27/16 11/27/16 11/28/16 11/28/16 11/28/16 07:00 15:00 23:00 07:00 15:00 23:00 Intake Total 480 ml 60 ml 1277 ml 600 ml Balance 480 ml 60 ml 1277 ml 600 ml Intake Oral 480 ml 60 ml IV Total 1277 ml 600 ml # Voids 6 2 # Bowel Movements 1 Laboratory Laboratory Tests Test 11/28/16 06:00 White Blood Count 5.8 Red Blood Count 2.75 Hemoglobin 7.4 Hematocrit 22.4 Mean Corpuscular Volume 81.5 Mean Corpuscular Hemoglobin 27.0 Mean Corpuscular Hemoglobin 33.2 Concent Red Cell Distribution Width 14.5 Platelet Count 186 Mean Platelet Volume 8.6 Neutrophils (%) (Auto) 56.9 Lymphocytes (%) (Auto) 30.8 Monocytes (%) (Auto) 8.8 Eosinophils (%) (Auto) 2.9 Basophils (%) (Auto) 0.6 Neutrophils # (Auto) 3.3 Lymphocytes # (Auto) 1.8 Monocytes # (Auto) 0.5 Eosinophils # (Auto) 0.2 Basophils # (Auto) 0.0 CBC Comment DIFF FINAL Differential Comment Sodium Level 143 Potassium Level 3.6 Chloride Level 109 Carbon Dioxide Level 25.9 Anion Gap 8 Blood Urea Nitrogen 15 Creatinine 0.83 Estimat Glomerular Filtration 71 Rate Random Glucose 113 Calcium Level 8.4 Total Bilirubin 0.2 Aspartate Amino Transf 7 (AST/SGOT) Alanine Aminotransferase 10 (ALT/SGPT) Alkaline Phosphatase 61 Total Protein 5.4 Albumin 2.3 Imaging Last Impressions Abdomen/Pelvis CT 11/27/16 0000 Signed Impressions: Service Date/Time: Sunday, November 27, 2016 07:51 - CONCLUSION: 1. The distal ileum is not well-visualized secondary to streak artifact from dense barium in the cecum. Nonspecific, nonobstructive bowel gas pattern most consistent with an ileus or gastroenteritis. There is dense barium with streak artifact leading to suboptimal visualization. 2. Stable appearing left adrenal lipoma. 3. Status post cholecystectomy. 4. Stable appearance of the liver with apparent postoperative change. Shan Cardenas MD Upper GI and Small Bowel X-Ray 11/25/16 0000 Signed Impressions: Service Date/Time: November 09:56 - CONCLUSION: 1. Findings are most typical of small and large bowel ileus. 2. Short segment narrowing of the distal ileum, estimated 20 cm proximal to the ileocecal valve. The etiology of this is uncertain. I don't see a mass or correlative inflammatory changes on the CT back in July. An up-to-date CT of the abdomen and pelvis is recommended. aBl Watkins MD Head CT 11/19/16 1156 Signed Impressions: Service Date/Time: Saturday, November 19, 2016 13:23 - CONCLUSION: 1. No acute hemorrhage or mass effect. 2. Stable small meningioma again noted along the right parietal convexities. 3. Atrophy and old lacunar infarcts. Shan Cardenas MD Chest X-Ray 11/19/16 0000 Signed Impressions: Service Date/Time: Saturday, November 19, 2016 13:28 - CONCLUSION: No acute disease. Shan Cardenas MD Physical Exam HEENT: EOMI; normocephalic; atraumatic; no jaundice. CHEST: Chest is clear to auscultation and percussion. CARDIAC: Regular rate and rhythm with no murmur gallop or rubs. ABDOMEN: Soft, nondistended, nontender; no hepatosplenomegaly; bowel sounds are present in all four quadrants. EXTREMITIES: No clubbing, cyanosis, or edema. SKIN: pale; no rash; no jaundice. [employer] CONSULTANT: asleep (Dacia Miranda) Assessment and Plan Plan ASSESSMENT - anemia, tarry stool/ heme (+) stools - HH decreased 7.4, 22.4. no melena today or yesterday Ct on (11/27/16) --->The distal ileum is not well-visualized secondary to streak artifact from dense barium in the cecum. Nonspecific, nonobstructive bowel gas pattern most consistent with an ileus or gastroenteritis. There is dense barium with streak artifact leading to suboptimal visualization. 2. Stable appearing left adrenal lipoma. 3. Status post cholecystectomy. 4. Stable appearance of the liver with apparent postoperative change. SBFT 11/25/16 -->1. Findings are most typical of small and large bowel ileus. 2. Short segment narrowing of the distal ileum, estimated 20 cm proximal to the ileocecal valve. The etiology of this is uncertain. I don't see a mass or correlative inflammatory changes on the CT back in July. An up-to-date CT of the abdomen and pelvis is recommended. Pt does not appear to be having symptoms of ileus at this time and she says she is feeling better today than before. Will do f/u CT to r/o ileus. s/p EGD ---> LA class A esophagitis, moderate erythematous gastritis. Colonoscopy 08/24/16 normal, EGD 08/24/16 ---> gastric polyp, path hyperplastic polyp. Per RN vaginal bleeding has ceased. PLAN: - REINALDO - Colonoscopy Tuesday - Mg Citrate prep - clears today - NPO after midnight - obtain consents - continue to monitor HH - transfuse as necessary - supportive care - further recommendations based on results of above THis pt seen by myself and Dr Paredes and this note is written on his behalf. (Dacia Miranda) Physician Comments Seen and examined with CHRIS , Hb still drifting downwards but no reported bleeding. Colonoscopy planned for tomorrow. Dr. Connell to follow. (Owen Paredes MD) Dacia Miranda November 28, 2016 15:04 Owen Paredes MD November 28, 2016 16:40
[2016-11-28] MEDS ORDERED: MAGNESIUM CITRATE SOLN 300 ML BTL PO ONE ×2 (16:00→18:00)
[2016-11-28] MEDS ORDERED: HYDR-3583 PO (18:32)
[2016-11-28] MEDS ORDERED: TRAM50TA PO (18:32)
[2016-11-28] MEDS ORDERED: SOD PHOSPHATE/SOD BIPHOSPHATE (ADULT) ENEMA 133ML RECTAL PRN (20:15)
[2016-11-28 20:22] LABS: HEMATOCRIT 23.6 % (35.0-46.0); REVIEW FLAG FINAL
[2016-11-28] MEDS: PRAVASTATIN SOD 80 MG TAB PO SCH (21:15)
[2016-11-29] VITALS: BP 110/74; PULSE 74; RESP 18; TEMP 97.3; O2SAT 94
[2016-11-29] MEDS: SODIUM CHLOR 0.9% 1000 ML INJ 1,000 ML IV SCH ×2 (01:31→14:29)
[2016-11-29 04:00] VITALS: BP 145/90; PULSE 78; RESP 19; TEMP 98.3; O2SAT 96
[2016-11-29] MEDS: LEVOTHYROXINE SODIUM 100 MCG TAB PO SCH (05:49)
[2016-11-29] MEDS: INSULIN NovoLIN REGULAR SUPPLEMENTAL SCALE SQ SCH ×4 (05:51→21:00)
[2016-11-29 06:53] LABS: HEMATOCRIT 22.8 % (35.0-46.0); MEAN CELL VOLUME 81.8 FL (80.0-100.0); MEAN CORPUSCULAR HEMOGLOBIN 27.7 PG (27.0-34.0); MEAN CORPUSCULAR HGB CONC 33.8 % (32.0-36.0); PLATELET COUNT 194 TH/MM3 (150-450); RED BLOOD COUNT 2.79 MIL/MM3 (4.00-5.30); RED CELL DISTRIBUTION WIDTH 14.7 % (11.6-17.2); REVIEW FLAG FINAL; WHITE BLOOD COUNT 7.6 TH/MM3 (4.0-11.0)
[2016-11-29 07:17] LABS: PROTHROMBIN TIME - PATIENT 11.5 SEC (9.8-11.6)
--- NOTE | 2016-11-29 07:41 | HHI.FPPN ---
Subjective Remarks Patient seen and examined this am. Vitals are stable patient is afebrile. HB stable. Colonoscopy planned for today. No overnight events. Has been NPO. Patient without any complaints this am. at bedside. Objective Vitals Vital Signs Date Time Temp Pulse Resp B/P Pulse Ox O2 Delivery O2 Flow Rate FiO2 11/29/16 04:00 98.3 78 19 145/90 96 11/29/16 00:00 97.3 74 18 110/74 94 11/28/16 20:03 75 11/28/16 20:00 97.8 72 15 138/85 98 11/28/16 16:00 98.0 78 18 115/79 95 11/28/16 12:49 96.4 77 18 140/83 97 11/28/16 08:00 98.9 77 18 142/89 92 11/28/16 07:52 74 I/O 11/28/16 11/28/16 11/28/16 11/29/16 11/29/16 11/29/16 07:00 15:00 23:00 07:00 15:00 23:00 Intake Total 1277 ml 1330 ml 1781 ml Balance 1277 ml 1330 ml 1781 ml Intake Oral 730 ml 240 ml IV Total 1277 ml 600 ml 1541 ml # Voids 2 3 2 # Bowel Movements 1 Result Diagram: 11/29/16 0555 11/29/16 0555 Imaging Last Impressions Abdomen/Pelvis CT 11/27/16 0000 Signed Impressions: Service Date/Time: Sunday, November 27, 2016 07:51 - CONCLUSION: 1. The distal ileum is not well-visualized secondary to streak artifact from dense barium in the cecum. Nonspecific, nonobstructive bowel gas pattern most consistent with an ileus or gastroenteritis. There is dense barium with streak artifact leading to suboptimal visualization. 2. Stable appearing left adrenal lipoma. 3. Status post cholecystectomy. 4. Stable appearance of the liver with apparent postoperative change. Shan Cardenas MD Upper GI and Small Bowel X-Ray 11/25/16 0000 Signed Impressions: Service Date/Time: November 09:56 - CONCLUSION: 1. Findings are most typical of small and large bowel ileus. 2. Short segment narrowing of the distal ileum, estimated 20 cm proximal to the ileocecal valve. The etiology of this is uncertain. I don't see a mass or correlative inflammatory changes on the CT back in July. An up-to-date CT of the abdomen and pelvis is recommended. Bal Watkins MD Head CT 11/19/16 1156 Signed Impressions: Service Date/Time: Saturday, November 19, 2016 13:23 - CONCLUSION: 1. No acute hemorrhage or mass effect. 2. Stable small meningioma again noted along the right parietal convexities. 3. Atrophy and old lacunar infarcts. Shan Cardenas MD Chest X-Ray 11/19/16 0000 Signed Impressions: Service Date/Time: Saturday, November 19, 2016 13:28 - CONCLUSION: No acute disease. Shan Cardenas MD Objective Remarks GENERAL: Pleasant but chronically ill-appearing female sitting upright. In no acute distress. SKIN: Per prior EMR note Stage 1 pressure ulcer on the sacrum, skin is intact there is some erythema and tenderness CARDIOVASCULAR: Regular rate and rhythm without murmurs, gallops, or rubs. RESPIRATORY: Clear to auscultation. Breath sounds equal bilaterally. No wheezes , rales, or rhonchi. GASTROINTESTINAL: Abdomen soft, non-tender, nondistended. MUSCULOSKELETAL: Extremities without clubbing, cyanosis, or edema. NEUROLOGICAL: Awake and alert. Slow speech. No obvious focal deficits A/P Assessment and Plan 56-year-old female with previous history of abnormal vaginal bleeding returns with supratherapeutic INR at 3.4, and continued vaginal bleeding passing large clots. Previous transvaginal ultrasound revealed endometrial stripe less than 3. She will be admitted for red blood cell transfusion, gynecology consult. Palliative consulted to help with goal clarification and symptom management. GI consulted for anemia and black stools. Discharge Planning DC to senior care facility vs hom2 with home health pending stable hemoglobin and further workup by GI, colonoscopy today. aries Mendoza Problem List: (1) GI bleed Status: Acute Plan: Hemoccult-positive. Previously on Coumadin, then switched to xarelto, currently on Coumadin 3 mg daily at 1600 (ON HOLD) GI following. Colonoscopy for Tuesday. Recommends outpatient pill camera pending colonoscopy results. EGD 11/23: esophagitis erythematous gastritis.Gastric mucosa on biopsy shows mild chronic inflammation, negative helicobacter Cont PPI, avoid NSAIDs. History: GD 08/24/16---> gastric polyp, path hyperplastic polyp. Colonoscopy ---> normal. (2) Vaginal bleeding, abnormal Status: Resolved Plan: Resolved. Likely secondary to supratherapeutic INR of 3.4 on arrival ERECTOR OPERATOR consulted, appreciate evaluation and recommendations - ERECTOR OPERATOR reviewed previous ultrasound that showed fibroids and 3 mm endometrial stripe, does not feel the fibroids are contributing to vaginal bleeding - Provera 10 mg by mouth daily (day #10 of 14) Monitor daily CBCs and transfuse as needed Counseled importance of following with a ERECTOR OPERATOR as an outpatient (3) Anemia Status: Acute Plan: On admission hemoglobin was 7.0, currently stable. No active bleeding at this time History: Transfused 2 units PRBCs on 11/19 and treatment as above for vaginal bleeding - Monitor daily CBCs and transfuse as needed (4) Acute renal failure Status: Resolved Plan: Improving. (5) Supratherapeutic INR Status: Resolved Plan: Presented with supertherapeutic INR on admission. Was switched to xarelto. Due to GI bleed, lengthy discussion with patient, will place patient back on Coumadin at lower dose 3 mg with goal INR of close to 2. Coumadin currently on hold, INR 1.0. -Patient will need INR ordered when discharged to senior care facility (6) Pressure ulcer Status: Acute Plan: Physical exam, and history reveals stage I/2 pressure ulcer at the sacrum , and bilateral ankle. Wound care nurse consulted. Offload areas as able. (7) History of CVA (cerebrovascular accident) Status: Chronic Plan: History of CVA 3 with persistent right-sided deficits. Resumed coumadin 5/4 at 3 mg daily (currently on HOLD) Follow INR. Recheck INR as outpatient. Follows with neurology as an outpatient. -If patient has another episode of decreased arousability, or states that patient is acting different will order MRI for stroke evaluation (8) FEN/PPX Status: Acute Plan: Fluids: HLIV Electrolytes: Monitor and replace when necessary Nutrition: Regular diet as tolerated. Prophylaxis: Coumadin 3 mg daily (Currently on HOLD) Bilat SCDs Chronic medical problems: History of CVA: See above regarding warfarin management. Type 2 diabetes: Hold home metformin. Sliding scale insulin while inpatient. Recent femoral neck fracture: We'll provide PT while inpatient. Morphine 2 mg every 3 hours when necessary pain 6-10. Depression: Continue home citalopram 40 mg by mouth daily. Vitamin D deficiency: Continue current management as an outpatient. Hyperlipidemia: Continue simvastatin. Hypothyroidism: Continue levothyroxine 100 MCG daily Hypertension: Amlodipine 5 mg by mouth daily; she does have a history of labile blood pressures. Carefully monitor. History of adrenal insufficiency: Further workup with endocrinology was recommended as an outpatient. Continue fludrocortisone 0.1 mg by mouth daily. Problem Qualifiers (1) Anemia: Qualified Code: D64.9 - Anemia, unspecified type (2) Acute renal failure: Qualified Code: N17.9 - Acute renal failure, unspecified acute renal failure type Jerrica Golden MD R3 November 29, 2016 07:40
[2016-11-29 07:59] VITALS: PULSE 79
[2016-11-29 08:00] VITALS: BP 148/88; PULSE 83; RESP 18; TEMP 98.7; O2SAT 94
[2016-11-29] MEDS: GABAPENTIN 400 MG CAP PO SCH ×3 (13:00→17:04)
[2016-11-29] MEDS ORDERED: PROPOFOL 200 MG/20 ML AMP IV ONE (13:07)
[2016-11-29] MEDS ORDERED: DO NOT ADM ANY ANTICOAGULANT DRUGS PRN (13:15)
--- NOTE | 2016-11-29 13:20 | GIPROC ---
[facility] [address] [facility]. [facility], [address] COLONOSCOPY PROCEDURE REPORT EXAM DATE: 11/29/2016 PATIENT NAME: Jennie Velasquez MR #: [id number] BIRTHDATE: 1960 ENDOSCOPIST: Lynette Connell MD ORDER #: [id number] BUSINESS SOLUTIONS ANALYST: Kunal Real Deborah STATUS: inpatient INDICATIONS: The patient is a 56 yr old female here for a colonoscopy due to anemia, gi bleeding PROCEDURE PERFORMED: Colonoscopy, incomplete MEDICATIONS: None and Per Anesthesia. PREP QUALITY: poor PREP TYPE:GoLytely ESTIMATED BLOOD LOSS: None CONSENT: The patient understands the risks and benefits of the procedure and understands that these risks include, but are not limited to: sedation, allergic reaction, infection, perforation and/or bleeding. Alternative means of evaluation and treatment include, among others: physical exam, x-rays, and/or surgical intervention. The patient elects to proceed with this endoscopic procedure. medical equipment was checked for proper function. Hand hygiene and appropriate measures for infection prevention was taken. After the risks, benefits and alternatives of the procedure were thoroughly explained, Informed consent was verified, confirmed and timeout was successfully executed by the treatment team. A digital exam revealed hemorrhoids The Pentax [id number] endoscope was introduced through the anus and advanced to the mid transverse colon. The instrument was then slowly withdrawn as the colon was fully examined. COLON FINDINGS: Solid stool in colon, procedure cancelled due to poor prep. Retroflexed views revealed internal hemorrhoids and Retroflexed views revealed small internal hemorrhoids The scope was then completely withdrawn from the patient and the procedure terminated. ADVERSE EVENTS: There were no complications. IMPRESSIONS: 1. Solid stool in colon, procedure cancelled due to poor prep 2. Retroflexed views revealed internal hemorrhoids 3. Retroflexed views revealed small internal hemorrhoids 4. Revealed hemorrhoids RECOMMENDATIONS: Colonoscopy in am better preparation clear liquid diet RECALL: Return 1 day Colonoscopy Lynette Connell MD eSigned: Lynette Connell MD 11/29/2016 1:19 PM cc:
[2016-11-29] MEDS ORDERED: MAGNESIUM CITRATE SOLN 300 ML BTL PO ONE ×2 (14:00→20:00)
[2016-11-29] MEDS: SODIUM CHLORIDE 0.9% FLUSH 10 ML FLUSH IV FLUSH SCH ×2 (14:29→21:00)
[2016-11-29] MEDS: LISINOPRIL 20 MG TAB PO SCH (14:30)
[2016-11-29] MEDS: medroxyPROGESTERone ACETATE 10 MG TAB PO SCH (14:30)
[2016-11-29] MEDS: risperiDONE 1 MG TAB PO SCH (14:30)
[2016-11-29] MEDS: PANTOPRAZOLE SOD 40 MG DELAYED RELEASE TAB PO SCH (14:30)
[2016-11-29] MEDS: FERROUS SULFATE 325 MG (65 MG ELEMENTAL IRON) TAB PO SCH ×2 (14:31→21:44)
[2016-11-29] MEDS: amLODIPine BESYLATE 5 MG TAB PO SCH (14:31)
[2016-11-29] MEDS: CITALOPRAM HYDROBROMIDE 40 MG TAB PO SCH (14:31)
[2016-11-29] MEDS: FLUDROCORTISONE ACETATE 0.1 MG TAB PO SCH (15:43)
[2016-11-29] MEDS: WARFARIN SOD 3 MG TAB PO SCH (15:59)
[2016-11-29 16:00] VITALS: BP 150/94; PULSE 82; RESP 20; TEMP 99.5; O2SAT 97
[2016-11-29 20:00] VITALS: BP 124/79; PULSE 67; PULSE 69; RESP 16; TEMP 97.3; O2SAT 95
[2016-11-29] MEDS: PRAVASTATIN SOD 80 MG TAB PO SCH (21:44)
[2016-11-30] VITALS (7 sets, daily range): BP systolic 97–157; BP diastolic 51–87; PULSE 69–86; RESP 16–20; TEMP 96.3–98.5; O2SAT 94–98
[2016-11-30] MEDS: LEVOTHYROXINE SODIUM 100 MCG TAB PO SCH (05:16)
[2016-11-30] MEDS: INSULIN NovoLIN REGULAR SUPPLEMENTAL SCALE SQ SCH ×4 (05:22→21:00)
[2016-11-30 07:10] LABS: AUTOMATED NEUTROPHIL # 4.4 TH/MM3 (1.8-7.7); BASOPHIL % 0.5 % (0.0-2.0); EOSINOPHIL # 0.1 TH/MM3 (0-0.4); EOSINOPHIL % 2.2 % (0.0-4.0); HEMATOCRIT 25.7 % (35.0-46.0); HEMO FLAGS DIFF FINAL; LYMPH % 25.7 % (9.0-44.0); LYMPHOCYTE # 1.7 TH/MM3 (1.0-4.8); MEAN CELL VOLUME 81.8 FL (80.0-100.0); MEAN CORPUSCULAR HEMOGLOBIN 26.9 PG (27.0-34.0); MEAN CORPUSCULAR HGB CONC 32.9 % (32.0-36.0); MONO % 6.7 % (0.0-8.0); NEUT % 64.9 % (16.0-70.0); PLATELET COUNT 196 TH/MM3 (150-450); RED BLOOD COUNT 3.14 MIL/MM3 (4.00-5.30); RED CELL DISTRIBUTION WIDTH 14.7 % (11.6-17.2); WHITE BLOOD COUNT 6.8 TH/MM3 (4.0-11.0)
[2016-11-30 07:18] LABS: PROTHROMBIN TIME - PATIENT 11.4 SEC (9.8-11.6)
--- NOTE | 2016-11-30 07:18 | HHI.FPPN ---
Subjective Remarks Patient seen and examined this am. Poor bowel prep yesterday, repeat attempt colonoscopy scheduled for today. Having loose stools, reports they are normal in color. Did not sleep well. Wants to go home. Objective Vitals Vital Signs Date Time Temp Pulse Resp B/P Pulse Ox O2 Delivery O2 Flow Rate FiO2 11/30/16 04:00 97.7 75 16 144/82 97 11/30/16 00:00 97.5 70 16 157/83 96 11/29/16 20:00 97.3 69 16 124/79 95 11/29/16 20:00 67 11/29/16 16:00 99.5 82 20 150/94 97 11/29/16 13:40 74 16 145/79 98 11/29/16 13:30 98.8 74 16 145/80 98 Room Air 11/29/16 13:20 98.8 74 16 130/69 98 Nasal Cannula 2 11/29/16 08:00 98.7 83 18 148/88 94 11/29/16 07:59 79 I/O 11/29/16 11/29/16 11/29/16 11/30/16 11/30/16 11/30/16 07:00 15:00 23:00 07:00 15:00 23:00 Intake Total 1781 ml 1260 ml Balance 1781 ml 1260 ml Intake Oral 240 ml 360 ml IV Total 1541 ml 200 ml Other 700 ml # Voids 2 2 1 # Bowel Movements 1 1 1 2 Result Diagram: 11/30/16 0555 11/29/16 0555 Imaging Last Impressions Abdomen/Pelvis CT 11/27/16 0000 Signed Impressions: Service Date/Time: Sunday, November 27, 2016 07:51 - CONCLUSION: 1. The distal ileum is not well-visualized secondary to streak artifact from dense barium in the cecum. Nonspecific, nonobstructive bowel gas pattern most consistent with an ileus or gastroenteritis. There is dense barium with streak artifact leading to suboptimal visualization. 2. Stable appearing left adrenal lipoma. 3. Status post cholecystectomy. 4. Stable appearance of the liver with apparent postoperative change. Shan Cardenas MD Upper GI and Small Bowel X-Ray 11/25/16 0000 Signed Impressions: Service Date/Time: November 09:56 - CONCLUSION: 1. Findings are most typical of small and large bowel ileus. 2. Short segment narrowing of the distal ileum, estimated 20 cm proximal to the ileocecal valve. The etiology of this is uncertain. I don't see a mass or correlative inflammatory changes on the CT back in July. An up-to-date CT of the abdomen and pelvis is recommended. Bal Watkins MD Head CT 11/19/16 1156 Signed Impressions: Service Date/Time: Saturday, November 19, 2016 13:23 - CONCLUSION: 1. No acute hemorrhage or mass effect. 2. Stable small meningioma again noted along the right parietal convexities. 3. Atrophy and old lacunar infarcts. Shan Cardenas MD Chest X-Ray 11/19/16 0000 Signed Impressions: Service Date/Time: Saturday, November 19, 2016 13:28 - CONCLUSION: No acute disease. Shan Cardenas MD Objective Remarks GENERAL: Pleasant but chronically ill-appearing female sitting upright. In no acute distress. SKIN: Per prior EMR note Stage 1 pressure ulcer on the sacrum, skin is intact there is some erythema and tenderness CARDIOVASCULAR: Regular rate and rhythm without murmurs, gallops, or rubs. RESPIRATORY: Clear to auscultation. Breath sounds equal bilaterally. No wheezes , rales, or rhonchi. GASTROINTESTINAL: Abdomen soft, non-tender, nondistended. MUSCULOSKELETAL: Extremities without clubbing, cyanosis, or edema. NEUROLOGICAL: Awake and alert. Slow speech. No obvious focal deficits A/P Assessment and Plan 56-year-old female with previous history of abnormal vaginal bleeding returns with supratherapeutic INR at 3.4, and continued vaginal bleeding passing large clots. Previous transvaginal ultrasound revealed endometrial stripe less than 3. She will be admitted for red blood cell transfusion, gynecology consult. Palliative consulted to help with goal clarification and symptom management. GI consulted for anemia and black stools. Discharge Planning DC to group home facility vs home with home health pending stable hemoglobin and further workup by GI, repeat colonoscopy today. aries Mendoza Problem List: (1) GI bleed Status: Acute Plan: Hemoccult-positive. Previously on Coumadin, then switched to xarelto, currently on Coumadin 3 mg daily at 1600 (ON HOLD) GI following. Repeat Colonoscopy for Tuesday. Recommends outpatient pill camera pending colonoscopy results. EGD 11/23: esophagitis erythematous gastritis.Gastric mucosa on biopsy shows mild chronic inflammation, negative helicobacter Cont PPI, avoid NSAIDs. History: GD 08/24/16---> gastric polyp, path hyperplastic polyp. Colonoscopy ---> normal. (2) Vaginal bleeding, abnormal Status: Resolved Plan: Resolved. Likely secondary to supratherapeutic INR of 3.4 on arrival INSTITUTIONAL ASSET MANAGER consulted, appreciate evaluation and recommendations - INSTITUTIONAL ASSET MANAGER reviewed previous ultrasound that showed fibroids and 3 mm endometrial stripe, does not feel the fibroids are contributing to vaginal bleeding - Provera 10 mg by mouth daily (day #11 of 14) Monitor daily CBCs and transfuse as needed Counseled importance of following with a INSTITUTIONAL ASSET MANAGER as an outpatient (3) Anemia Status: Acute Plan: On admission hemoglobin was 7.0, currently stable. No active bleeding at this time History: Transfused 2 units PRBCs on 11/19 and treatment as above for vaginal bleeding - Monitor daily CBCs and transfuse as needed (4) Acute renal failure Status: Resolved Plan: Improving. (5) Supratherapeutic INR Status: Resolved Plan: Presented with supertherapeutic INR on admission. Was switched to xarelto. Due to GI bleed, lengthy discussion with patient, will place patient back on Coumadin at lower dose 3 mg with goal INR of close to 2. Coumadin currently on hold, INR 1.0. -Patient will need INR ordered when discharged to group home facility (6) Pressure ulcer Status: Acute Plan: Physical exam, and history reveals stage I/2 pressure ulcer at the sacrum , and bilateral ankle. Wound care nurse consulted. Offload areas as able. (7) History of CVA (cerebrovascular accident) Status: Chronic Plan: History of CVA 3 with persistent right-sided deficits. Resumed coumadin 5/4 at 3 mg daily (currently on HOLD)--> Resume after colonoscopy Follow INR. Recheck INR as outpatient. Follows with neurology as an outpatient. -If patient has another episode of decreased arousability, or states that patient is acting different will order MRI for stroke evaluation (8) FEN/PPX Status: Acute Plan: Fluids: HLIV Electrolytes: Monitor and replace when necessary Nutrition: Regular diet as tolerated. Prophylaxis: Coumadin 3 mg daily (Currently on HOLD) Bilat SCDs Chronic medical problems: History of CVA: See above regarding warfarin management. Type 2 diabetes: Hold home metformin. Sliding scale insulin while inpatient. Recent femoral neck fracture: We'll provide PT while inpatient. Morphine 2 mg every 3 hours when necessary pain 6-10. Depression: Continue home citalopram 40 mg by mouth daily. Vitamin D deficiency: Continue current management as an outpatient. Hyperlipidemia: Continue simvastatin. Hypothyroidism: Continue levothyroxine 100 MCG daily Hypertension: Amlodipine 5 mg by mouth daily; she does have a history of labile blood pressures. Carefully monitor. History of adrenal insufficiency: Further workup with endocrinology was recommended as an outpatient. Continue fludrocortisone 0.1 mg by mouth daily. Problem Qualifiers (1) Anemia: Qualified Code: D64.9 - Anemia, unspecified type (2) Acute renal failure: Qualified Code: N17.9 - Acute renal failure, unspecified acute renal failure type Jerrica Golden MD R3 November 30, 2016 07:18
[2016-11-30 07:41] LABS: BICARBONATE 30.2 MEQ/L (21.0-32.0); POTASSIUM 3.3 MEQ/L (3.5-5.1)
[2016-11-30] MEDS: amLODIPine BESYLATE 5 MG TAB PO SCH (08:10)
[2016-11-30] MEDS: FERROUS SULFATE 325 MG (65 MG ELEMENTAL IRON) TAB PO SCH ×2 (08:10→21:46)
[2016-11-30] MEDS: LISINOPRIL 20 MG TAB PO SCH (08:13)
[2016-11-30] MEDS: FLUDROCORTISONE ACETATE 0.1 MG TAB PO SCH (08:14)
[2016-11-30] MEDS: CITALOPRAM HYDROBROMIDE 40 MG TAB PO SCH (08:14)
[2016-11-30] MEDS: GABAPENTIN 400 MG CAP PO SCH ×4 (08:17→16:49)
[2016-11-30] MEDS: medroxyPROGESTERone ACETATE 10 MG TAB PO SCH (08:18)
[2016-11-30] MEDS: PANTOPRAZOLE SOD 40 MG DELAYED RELEASE TAB PO SCH (08:18)
[2016-11-30] MEDS: risperiDONE 1 MG TAB PO SCH (08:21)
[2016-11-30] MEDS: SODIUM CHLORIDE 0.9% FLUSH 10 ML FLUSH IV FLUSH SCH ×2 (09:00→21:00)
[2016-11-30] MEDS ORDERED: PROPOFOL 200 MG/20 ML AMP IV ONE (10:13)
--- NOTE | 2016-11-30 10:41 | GIPROC ---
[facility] [address] [facility]. [facility], [id number] COLONOSCOPY PROCEDURE REPORT EXAM DATE: 11/30/2016 PATIENT NAME: Jennie Velasquez MR #: [id number] BIRTHDATE: 1960 ENDOSCOPIST: Lynette Connell MD ORDER #: [id number] [employer]IONAL DEDICATED TRUCK DRIVER: Moshe Almazan and Jasmeet Galvan STATUS: inpatient INDICATIONS: The patient is a 56 yr old female here for a colonoscopy due to aneami, hem positive stool PROCEDURE PERFORMED: Colonoscopy, diagnostic MEDICATIONS: None and Per Anesthesia. PREP QUALITY: poor PREP TYPE:Magnesium Citrate ESTIMATED BLOOD LOSS: None CONSENT: The patient understands the risks and benefits of the procedure and understands that these risks include, but are not limited to: sedation, allergic reaction, infection, perforation and/or bleeding. Alternative means of evaluation and treatment include, among others: physical exam, x-rays, and/or surgical intervention. The patient elects to proceed with this endoscopic procedure. medical equipment was checked for proper function. Hand hygiene and appropriate measures for infection prevention was taken. After the risks, benefits and alternatives of the procedure were thoroughly explained, Informed consent was verified, confirmed and timeout was successfully executed by the treatment team. A digital exam revealed external hemorrhoids The Pentax [id number] endoscope was introduced through the anus and advanced to the cecum, which was identified by both the appendix and ileocecal valve. The instrument was then slowly withdrawn as the colon was fully examined. COLON FINDINGS: Poor prep. Retroflexed views revealed internal hemorrhoids and Retroflexed views revealed small internal hemorrhoids The scope was then completely withdrawn from the patient and the procedure terminated. PROCEDURE WITHDRAWAL TIME:15minutes ADVERSE EVENTS: There were no complications. IMPRESSIONS: 1. Poor prep 2. Retroflexed views revealed internal hemorrhoids 3. Retroflexed views revealed small internal hemorrhoids 4. Revealed external hemorrhoids RECOMMENDATIONS: Yearly rectal exams RECALL: Return 1 year Colonoscopy Lynette Connell MD eSigned: Lynette Connell MD 11/30/2016 10:41 AM cc:
--- NOTE | 2016-11-30 14:00 | HHI.HCPN ---
Reason for visit a. To assist with evaluation and management of symptoms including: lethargy , weakness. b. To assist medical decision maker(s) with: better understanding of current medical conditions; weighing benefits/burdens of medical treatment options; making medical treatment decisions. . (Miriam Munoz) Subjective/Interval History Pt seen to follow up on goals, comfort. S/p colonoscopy yesterday, which have poor prep therefore needed to be repeated today. No active bleeding reported today. Patient went for repeat colonoscopy earlier today; findings/results pending. Labs are stable. H&H 8.5/25.7. Probable d/c to SNF if remains stable. Pt seen in room no visitors present. She is alert, partially oriented. Tells me she is trying to call her to come "pick her up and take her home". Denies pain, tells me doesnt feel well overall. Further qualifies her stomach feels "upset' but not specifically painful or nauseated. No SOB. No other pain. Explore that she is not going home today, that when medically stable she will d/ c to SNF. She does recall having a procedure earlier today, states it was "ok". She tells me she ate a hamburger for lunch. Following Exam call to patient . Updated him on current day diagnostics, colonoscopy report as per GI . Review of Discharge planning, most recent labs, review of Coumadin titration. He expresses frustration, he wants to know what other things we are testing what other workups are pending; advised that currently there is nothing else to workup, and that patient is for the most part medically stable although she does remain at risk for continued blood loss /GI bleeding issues, as well as overall general decline related to debilitated status. He informs that he will be in the hospital between 3 and 6 PM today, and requests follow-up from case management as well as medical attending in those timeframes. Advised that I was not certain of their scheduling however I would notify them of his visiting this afternoon. [Discuss with case management, call placed to attending Dr. Golden, spoke with Dr. Golden regarding.] . (Miriam Munoz) Advance Directives Living Will: Never completed Health Care Surrogate: Never completed Durable Power of Psychology Clinician: Never completed (Miriam Munoz) Advance Directive Specifics Health Care Surrogate(s): No written advance directives. If patient is incapacitated, according to [place] statutes, health care proxy decision-making falls to the patient's spouse. Spouse requests 5 wishes document, will bring to next visit. . (Miriam Munoz) Objective Vital Signs Date Time Temp Pulse Resp B/P Pulse Ox O2 Delivery O2 Flow Rate FiO2 11/30/16 13:31 96.3 81 20 154/85 96 11/30/16 10:58 80 18 162/93 98 11/30/16 10:48 80 18 150/79 99 11/30/16 10:38 99.1 79 18 150/79 99 11/30/16 09:07 97.9 75 18 157/87 97 11/30/16 07:36 97.9 75 18 157/87 97 11/30/16 04:00 97.7 75 16 144/82 97 11/30/16 00:00 97.5 70 16 157/83 96 11/29/16 20:00 97.3 69 16 124/79 95 11/29/16 20:00 67 11/29/16 16:00 99.5 82 20 150/94 97 Intake & Output 11/30/16 11/30/16 07:00 19:00 Intake Total 50 ml Balance 50 ml Other 50 ml # Voids 1 2 # Bowel Movements 3 # Sanitary Pads 1 Pads Physical Exam CONSTITUTIONAL/GENERAL: This is an thin, frail female, in no apparent distress. TUBES/LINES/DRAINS: PIV, Cardoso. SKIN: No jaundice, rashes, or lesions. Pale. Skin temperature cool. Not diaphoretic. CARDIOVASCULAR: Regular rate and rhythm , no murmur. RESPIRATORY/CHEST: Symmetric, unlabored respirations.On room air. Clear to auscultation. Diminished breath sounds bilaterally. GASTROINTESTINAL: Abdomen soft, non-tender, nondistended. No guarding. Bowel sounds present. GENITOURINARY: Without palpable bladder distension. Cardoso catheter in place. NEUROLOGICAL: Awake and alert, partially oriented. Answers some questions, delay /slow to find words. PSYCHIATRIC: No obvious anxiety/depression. . (Miriam Munoz) Diagnostic Tests Laboratory Laboratory Tests Test 11/28/16 11/28/16 11/29/16 11/30/16 06:00 20:16 05:55 05:55 White Blood Count 5.8 TH/MM3 7.6 TH/MM3 6.8 TH/MM3 (4.0-11.0) (4.0-11.0) (4.0-11.0) Red Blood Count 2.75 MIL/MM3 2.79 MIL/MM3 3.14 MIL/MM3 (4.00-5.30) (4.00-5.30) (4.00-5.30) Hemoglobin 7.4 GM/DL 7.8 GM/DL 7.7 GM/DL 8.5 GM/DL (11.6-15.3) (11.6-15.3) (11.6-15.3) (11.6-15.3) Hematocrit 22.4 % 23.6 % 22.8 % 25.7 % (35.0-46.0) (35.0-46.0) (35.0-46.0) (35.0-46.0) Mean Corpuscular Volume 81.5 FL 81.8 FL 81.8 FL (80.0-100.0) (80.0-100.0) (80.0-100.0) Mean Corpuscular Hemoglobin 27.0 PG 27.7 PG 26.9 PG (27.0-34.0) (27.0-34.0) (27.0-34.0) Mean Corpuscular Hemoglobin 33.2 % 33.8 % 32.9 % Concent (32.0-36.0) (32.0-36.0) (32.0-36.0) Red Cell Distribution Width 14.5 % 14.7 % 14.7 % (11.6-17.2) (11.6-17.2) (11.6-17.2) Platelet Count 186 TH/MM3 194 TH/MM3 196 TH/MM3 (150-450) (150-450) (150-450) Mean Platelet Volume 8.6 FL 8.4 FL 8.5 FL (7.0-11.0) (7.0-11.0) (7.0-11.0) Neutrophils (%) (Auto) 56.9 % 64.9 % (16.0-70.0) (16.0-70.0) Lymphocytes (%) (Auto) 30.8 % 25.7 % (9.0-44.0) (9.0-44.0) Monocytes (%) (Auto) 8.8 % (0.0-8.0) 6.7 % (0.0-8.0) Eosinophils (%) (Auto) 2.9 % (0.0-4.0) 2.2 % (0.0-4.0) Basophils (%) (Auto) 0.6 % (0.0-2.0) 0.5 % (0.0-2.0) Neutrophils # (Auto) 3.3 TH/MM3 4.4 TH/MM3 (1.8-7.7) (1.8-7.7) Lymphocytes # (Auto) 1.8 TH/MM3 1.7 TH/MM3 (1.0-4.8) (1.0-4.8) Monocytes # (Auto) 0.5 TH/MM3 0.5 TH/MM3 (0-0.9) (0-0.9) Eosinophils # (Auto) 0.2 TH/MM3 0.1 TH/MM3 (0-0.4) (0-0.4) Basophils # (Auto) 0.0 TH/MM3 0.0 TH/MM3 (0-0.2) (0-0.2) CBC Comment DIFF FINAL DIFF FINAL Differential Comment Sodium Level 143 MEQ/L 143 MEQ/L (136-145) (136-145) Potassium Level 3.6 MEQ/L 3.3 MEQ/L (3.5-5.1) (3.5-5.1) Chloride Level 109 MEQ/L 107 MEQ/L (98-107) (98-107) Carbon Dioxide Level 25.9 MEQ/L 30.2 MEQ/L (21.0-32.0) (21.0-32.0) Anion Gap 8 MEQ/L (5-15) 6 MEQ/L (5-15) Blood Urea Nitrogen 15 MG/DL (7-18) 11 MG/DL (7-18) Creatinine 0.83 MG/DL 0.75 MG/DL 0.69 MG/DL (0.50-1.00) (0.50-1.00) (0.50-1.00) Estimat Glomerular Filtration 71 ML/MIN (>89) 80 ML/MIN (>89) 88 ML/MIN (>89) Rate Random Glucose 113 MG/DL 80 MG/DL (74-106) (74-106) Calcium Level 8.4 MG/DL 8.6 MG/DL (8.5-10.1) (8.5-10.1) Total Bilirubin 0.2 MG/DL (0.2-1.0) Aspartate Amino Transf 7 U/L (15-37) (AST/SGOT) Alanine Aminotransferase 10 U/L (10-53) (ALT/SGPT) Alkaline Phosphatase 61 U/L (45-117) Total Protein 5.4 GM/DL (6.4-8.2) Albumin 2.3 GM/DL (3.4-5.0) Prothrombin Time 11.5 SEC 11.4 SEC (9.8-11.6) (9.8-11.6) Prothromb Time International 1.0 RATIO 1.0 RATIO Ratio (Miriam Munoz) Result Diagram: 11/30/16 0555 11/30/16 0555 Imaging Last Impressions Abdomen/Pelvis CT 11/27/16 0000 Signed Impressions: Service Date/Time: Sunday, November 27, 2016 07:51 - CONCLUSION: 1. The distal ileum is not well-visualized secondary to streak artifact from dense barium in the cecum. Nonspecific, nonobstructive bowel gas pattern most consistent with an ileus or gastroenteritis. There is dense barium with streak artifact leading to suboptimal visualization. 2. Stable appearing left adrenal lipoma. 3. Status post cholecystectomy. 4. Stable appearance of the liver with apparent postoperative change. Shan Cardenas MD Upper GI and Small Bowel X-Ray 11/25/16 0000 Signed Impressions: Service Date/Time: November 09:56 - CONCLUSION: 1. Findings are most typical of small and large bowel ileus. 2. Short segment narrowing of the distal ileum, estimated 20 cm proximal to the ileocecal valve. The etiology of this is uncertain. I don't see a mass or correlative inflammatory changes on the CT back in July. An up-to-date CT of the abdomen and pelvis is recommended. Bal Watkins MD Head CT 11/19/16 1156 Signed Impressions: Service Date/Time: Saturday, November 19, 2016 13:23 - CONCLUSION: 1. No acute hemorrhage or mass effect. 2. Stable small meningioma again noted along the right parietal convexities. 3. Atrophy and old lacunar infarcts. Shan Cardenas MD Chest X-Ray 11/19/16 0000 Signed Impressions: Service Date/Time: Saturday, November 19, 2016 13:28 - CONCLUSION: No acute disease. Shan Cardenas MD Procedures * 11/23/16 - EGD - esophagitis and gastritis, gastric biopsy done. Recommend PPI and No NSAIDS. . (Miriam Munoz) Assessment and Plan Disease Oriented Problem List: (1) Supratherapeutic INR (2) GI bleed (3) Vaginal bleeding (4) Anemia (5) Recurrent UTI (6) Acute renal failure (7) Uterine fibroid (8) Pressure ulcer Symptom Scale: (1) Weakness 0-10 Scale: Unable to quantify (2) Decreased appetite 0-10 Scale: Unable to quantify Pertinent Non-Medical Issues Psychosocial: . 2 children (son ad daughter) Spiritual: Hindu teresa. Legal: No known written advance directives. If patient is incapacitated, according to [place] statutes, health care proxy decision-making falls to the patient's spouse. Ethical issues impacting care: No known concerns at this time. . Important Contacts * Eamon Velasquez, spouse/HCP: [phone] . Prognosis Patient with ongoing delcine since stroke in 2013, she is dependent for all care , she has multiple medical comorbidities and overall poor prognosis. PPS 20. Eating bites and sips. Hospice appropriate if goals are comfort oriented. . Code Status: No Code Plan * No written advance directives. Patient appears capacitated to make her decisions at this time, supported by her . According to [place] statutes , health care proxy decision-making falls to the patient's spouse, "Nissa". Left 5 wishes document for completion, they would like to speak privately about this. * NO CODE - [place] DNR completed, patient confirms and asks her spouse to sign as HCP. * Phone update today to . Palliative previously left Living Will at bedside for pt/spouse to review. appears frustrated by pt overall general decline. Goals remain aggressive short of CPR. Wants D/c to rehab when medically able to do so. He requested f/up from CM today when he arrives to hospital around 3pm, requests update from medicine team as well, between 3-6pm today when he is here. I advised I would notify medical team though not certain of their availability. * SYMPTOMS: Weakness: patient appears to be declining post strokes, limited life expectancy. Plan for DC to rehab. Lethargy: secondary to procedure EGD/ pain medication and overall decline. Pain: no pain, reports stomach upset. No prns required. Will cont to evaluate. * Palliative care will continue to follow throughout hospital course to assist with symptom management and clarification of goals as needed. . (Miriam Munoz) Time Spent >50% Counseling/Coord of Care: Yes (d/w CM , d/w medical attending ) (Miriam Munoz) Attestation To help prompt me to consider important information that might be impacting today's encounter and assessment, information from prior notes written by myself or my colleagues may have been "brought forward" into today's note. My signature on this note, however, is an attestation that I personally performed the exam, history, and/or decision-making noted today, and, unless otherwise indicated, the interactions with patient, family, and staff as well as the review of records all occurred today. I also attest that the listed assessment and stated plan reflect my best clinical judgment today based on the combination of historical information, prior notes, and today's exam/ interactions. When time spent is documented, it refers only to time spent today by the signer, or if indicated, combined time spent today by collaborating physician/nurse practitioner. (Miriam Munoz) Collaborating MD Comments . Chart reviewed. Cased discussed with palliative care SUPERVISOR SEWER MAINTENANCE. Above SUPERVISOR SEWER MAINTENANCE note reviewed and I concur. . (Jose Carlos Palma MD) Miriam Munoz November 30, 2016 14:00 Jose Carlos Palma MD December 20, 2016 16:04
[2016-11-30] MEDS: POTASSIUM CHLORIDE 10 MEQ CONTROLLED RELEASE TAB PO ONE ×2 (15:00→16:36)
[2016-11-30] MEDS: WARFARIN SOD 3 MG TAB PO SCH (16:37)
[2016-11-30] MEDS ORDERED: POTASSIUM CHLORIDE 25 MEQ EFFERVESCENT TAB PO ONE (17:30)
[2016-11-30] MEDS: SODIUM CHLOR 0.9% 1000 ML INJ 1,000 ML IV SCH (18:09)
[2016-11-30] MEDS: PRAVASTATIN SOD 80 MG TAB PO SCH (21:46)
[2016-12-01] VITALS: BP 144/83; PULSE 65; RESP 17; TEMP 97.6; O2SAT 95
[2016-12-01] MEDS: SODIUM CHLOR 0.9% 1000 ML INJ 1,000 ML IV SCH ×2 (00:24→00:25)
[2016-12-01 04:00] VITALS: BP 165/95; PULSE 76; RESP 17; TEMP 97.6; O2SAT 94
[2016-12-01] MEDS: LEVOTHYROXINE SODIUM 100 MCG TAB PO SCH (06:07)
[2016-12-01] MEDS: INSULIN NovoLIN REGULAR SUPPLEMENTAL SCALE SQ SCH ×2 (06:10→11:00)
[2016-12-01 08:00] VITALS: BP 143/87; PULSE 73; RESP 18; TEMP 98.7; O2SAT 95
[2016-12-01 08:00] LABS: AUTOMATED NEUTROPHIL # 3.1 TH/MM3 (1.8-7.7); BASOPHIL % 0.8 % (0.0-2.0); EOSINOPHIL # 0.2 TH/MM3 (0-0.4); EOSINOPHIL % 3.1 % (0.0-4.0); HEMATOCRIT 24.1 % (35.0-46.0); HEMO FLAGS DIFF FINAL; LYMPH % 36.7 % (9.0-44.0); LYMPHOCYTE # 2.2 TH/MM3 (1.0-4.8); MEAN CORPUSCULAR HEMOGLOBIN 26.8 PG (27.0-34.0); MEAN CORPUSCULAR HGB CONC 32.7 % (32.0-36.0); MONO % 7.6 % (0.0-8.0); NEUT % 51.8 % (16.0-70.0); PLATELET COUNT 208 TH/MM3 (150-450); RED BLOOD COUNT 2.94 MIL/MM3 (4.00-5.30); RED CELL DISTRIBUTION WIDTH 14.7 % (11.6-17.2)
[2016-12-01 08:03] LABS: PROTHROMBIN TIME - PATIENT 11.4 SEC (9.8-11.6)
[2016-12-01 08:20] LABS: BICARBONATE 26.8 MEQ/L (21.0-32.0); POTASSIUM 3.9 MEQ/L (3.5-5.1)
--- NOTE | 2016-12-01 08:44 | HHI.FPPN ---
Subjective Remarks Patient seen and examined this am. at bedside. No overnight events. No dark stools, no vaginal bleeding. Anxious to get out of the hospital. Objective Vitals Vital Signs Date Time Temp Pulse Resp B/P Pulse Ox O2 Delivery O2 Flow Rate FiO2 12/01/16 08:00 98.7 73 18 143/87 95 12/01/16 04:00 97.6 76 17 165/95 94 12/01/16 00:00 97.6 65 17 144/83 95 11/30/16 20:00 69 11/30/16 20:00 98.5 69 16 97/51 94 11/30/16 16:00 97.6 86 20 117/69 98 11/30/16 13:31 96.3 81 20 154/85 96 11/30/16 10:58 80 18 162/93 98 11/30/16 10:48 80 18 150/79 99 11/30/16 10:38 99.1 79 18 150/79 99 11/30/16 09:07 97.9 75 18 157/87 97 I/O 11/30/16 11/30/16 11/30/16 12/01/16 12/01/16 12/01/16 07:00 15:00 23:00 07:00 15:00 23:00 Intake Total 50 ml 800 ml Balance 50 ml 800 ml IV Total 800 ml Other 50 ml # Voids 2 4 # Bowel Movements 2 # Sanitary Pads 1 Pads Result Diagram: 12/01/16 0742 12/01/16 0742 Imaging Last Impressions Abdomen/Pelvis CT 11/27/16 0000 Signed Impressions: Service Date/Time: Sunday, November 27, 2016 07:51 - CONCLUSION: 1. The distal ileum is not well-visualized secondary to streak artifact from dense barium in the cecum. Nonspecific, nonobstructive bowel gas pattern most consistent with an ileus or gastroenteritis. There is dense barium with streak artifact leading to suboptimal visualization. 2. Stable appearing left adrenal lipoma. 3. Status post cholecystectomy. 4. Stable appearance of the liver with apparent postoperative change. Shan Cardenas MD Upper GI and Small Bowel X-Ray 11/25/16 0000 Signed Impressions: Service Date/Time: November 09:56 - CONCLUSION: 1. Findings are most typical of small and large bowel ileus. 2. Short segment narrowing of the distal ileum, estimated 20 cm proximal to the ileocecal valve. The etiology of this is uncertain. I don't see a mass or correlative inflammatory changes on the CT back in July. An up-to-date CT of the abdomen and pelvis is recommended. Bal Watkins MD Head CT 11/19/16 1156 Signed Impressions: Service Date/Time: Saturday, November 19, 2016 13:23 - CONCLUSION: 1. No acute hemorrhage or mass effect. 2. Stable small meningioma again noted along the right parietal convexities. 3. Atrophy and old lacunar infarcts. Shan Cardenas MD Chest X-Ray 11/19/16 0000 Signed Impressions: Service Date/Time: Saturday, November 19, 2016 13:28 - CONCLUSION: No acute disease. Shan Cardenas MD Objective Remarks GENERAL: Pleasant but chronically ill-appearing female sitting upright. In no acute distress. SKIN: Per prior EMR note Stage 1 pressure ulcer on the sacrum, skin is intact there is some erythema and tenderness CARDIOVASCULAR: Regular rate and rhythm without murmurs, gallops, or rubs. RESPIRATORY: Clear to auscultation. Breath sounds equal bilaterally. No wheezes , rales, or rhonchi. GASTROINTESTINAL: Abdomen soft, non-tender, nondistended. MUSCULOSKELETAL: Extremities without clubbing, cyanosis, or edema. NEUROLOGICAL: Awake and alert. Slow speech. No obvious focal deficits A/P Assessment and Plan 56-year-old female with previous history of abnormal vaginal bleeding returns with supratherapeutic INR at 3.4, and continued vaginal bleeding passing large clots. Previous transvaginal ultrasound revealed endometrial stripe less than 3. She will be admitted for red blood cell transfusion, gynecology consult. Palliative consulted to help with goal clarification and symptom management. GI consulted for anemia and black stools. Discharge Planning DC to detention facility today. aries Mendoza Problem List: (1) GI bleed Status: Acute Plan: Hemoccult-positive. Previously on Coumadin, then switched to xarelto, currently on Coumadin 3 mg daily at 1600 GI following. Repeat Colonoscopy 11/30: poor prep, internal hemorrhoids, small internal hemorrhoids, external hemorrhoids. Yearly rectal exams. RTC 1 year colonoscopy. ?outpatient pill camera pending colonoscopy results. EGD 11/23: esophagitis erythematous gastritis.Gastric mucosa on biopsy shows mild chronic inflammation, negative helicobacter Cont PPI, avoid NSAIDs. History: GD 08/24/16---> gastric polyp, path hyperplastic polyp. Colonoscopy ---> normal. (2) Vaginal bleeding, abnormal Status: Resolved Plan: Resolved. Likely secondary to supratherapeutic INR of 3.4 on arrival CORPORATE PLANNING MANAGER consulted, appreciate evaluation and recommendations - CORPORATE PLANNING MANAGER reviewed previous ultrasound that showed fibroids and 3 mm endometrial stripe, does not feel the fibroids are contributing to vaginal bleeding - Provera 10 mg by mouth daily (day #12 of 14) Monitor daily CBCs and transfuse as needed Counseled importance of following with a CORPORATE PLANNING MANAGER as an outpatient (3) Anemia Status: Acute Plan: On admission hemoglobin was 7.0, currently stable. No active bleeding at this time History: Transfused 2 units PRBCs on 11/19 and treatment as above for vaginal bleeding - Monitor daily CBCs and transfuse as needed (4) Acute renal failure Status: Resolved Plan: Improving. (5) Supratherapeutic INR Status: Resolved Plan: Presented with supertherapeutic INR on admission. Was switched to xarelto. Due to GI bleed, lengthy discussion with patient, will place patient back on Coumadin at lower dose 3 mg with goal INR of close to 2. Coumadin resumed, INR 1.0. -Patient will need INR ordered when discharged to detention facility (6) Pressure ulcer Status: Acute Plan: Physical exam, and history reveals stage I/2 pressure ulcer at the sacrum , and bilateral ankle. Wound care nurse consulted. Offload areas as able. (7) History of CVA (cerebrovascular accident) Status: Chronic Plan: History of CVA 3 with persistent right-sided deficits. Coumadin 3 mg daily . INR subtherapeutic, explained to patient and that we would not bridge because of her tendency and increased risk of bleeding. Will adjust coumadin dose as necessary and follow INR closely. Follow INR. Recheck INR as outpatient. Follows with neurology as an outpatient. (8) FEN/PPX Status: Acute Plan: Fluids: HLIV Electrolytes: Monitor and replace when necessary Nutrition: Regular diet as tolerated. Prophylaxis: Coumadin 3 mg daily (Currently on HOLD) Bilat SCDs Chronic medical problems: History of CVA: See above regarding warfarin management. Type 2 diabetes: Hold home metformin. Sliding scale insulin while inpatient. Recent femoral neck fracture: We'll provide PT while inpatient. Morphine 2 mg every 3 hours when necessary pain 6-10. Depression: Continue home citalopram 40 mg by mouth daily. Vitamin D deficiency: Continue current management as an outpatient. Hyperlipidemia: Continue simvastatin. Hypothyroidism: Continue levothyroxine 100 MCG daily Hypertension: Amlodipine 5 mg by mouth daily; she does have a history of labile blood pressures. Carefully monitor. History of adrenal insufficiency: Further workup with endocrinology was recommended as an outpatient. Continue fludrocortisone 0.1 mg by mouth daily. Problem Qualifiers (1) Anemia: Qualified Code: D64.9 - Anemia, unspecified type (2) Acute renal failure: Qualified Code: N17.9 - Acute renal failure, unspecified acute renal failure type Jerrica Golden MD R3 December 01, 2016 08:44
[2016-12-01] MEDS ORDERED: MEDR10TA7 PO (08:50)
[2016-12-01] MEDS: amLODIPine BESYLATE 5 MG TAB PO SCH (09:20)
[2016-12-01] MEDS: FLUDROCORTISONE ACETATE 0.1 MG TAB PO SCH (09:20)
[2016-12-01] MEDS: LISINOPRIL 20 MG TAB PO SCH (09:21)
[2016-12-01] MEDS: GABAPENTIN 400 MG CAP PO SCH (09:22)
[2016-12-01] MEDS: medroxyPROGESTERone ACETATE 10 MG TAB PO SCH (09:22)
[2016-12-01] MEDS: PANTOPRAZOLE SOD 40 MG DELAYED RELEASE TAB PO SCH (09:22)
[2016-12-01] MEDS: CITALOPRAM HYDROBROMIDE 40 MG TAB PO SCH (09:22)
[2016-12-01] MEDS: FERROUS SULFATE 325 MG (65 MG ELEMENTAL IRON) TAB PO SCH (09:22)
[2016-12-01] MEDS: risperiDONE 1 MG TAB PO SCH (09:22)
[2016-12-01] MEDS: SODIUM CHLORIDE 0.9% FLUSH 10 ML FLUSH IV FLUSH SCH (09:23)
[2016-12-01 09:39] VITALS: PULSE 78
--- NOTE | 2016-12-01 10:43 | HHI.DS ---
Discharge Summary Admission Date Nov 19, 2016 at 15:19 Discharge Date: December 01, 2016 Admitting Diagnosis symptomatic anemia, acute renal failure, vaginal bleeding (1) GI bleed Diagnosis: Principal Plan: Hemoccult-positive. Previously on Coumadin, then switched to xarelto, currently on Coumadin 3 mg daily at 1600 GI following. Repeat Colonoscopy 11/30: poor prep, internal hemorrhoids, small internal hemorrhoids, external hemorrhoids. Yearly rectal exams. RTC 1 year colonoscopy. ?outpatient pill camera pending colonoscopy results. EGD 11/23: esophagitis erythematous gastritis.Gastric mucosa on biopsy shows mild chronic inflammation, negative helicobacter Cont PPI, avoid NSAIDs. History: GD 08/24/16---> gastric polyp, path hyperplastic polyp. Colonoscopy ---> normal. (2) Vaginal bleeding, abnormal Diagnosis: Principal Plan: Resolved. Likely secondary to supratherapeutic INR of 3.4 on arrival FUR EXAMINER consulted, appreciate evaluation and recommendations - FUR EXAMINER reviewed previous ultrasound that showed fibroids and 3 mm endometrial stripe, does not feel the fibroids are contributing to vaginal bleeding - Provera 10 mg by mouth daily (day #12 of 14) Monitor daily CBCs and transfuse as needed Counseled importance of following with a FUR EXAMINER as an outpatient (3) Anemia Diagnosis: Principal Plan: On admission hemoglobin was 7.0, currently stable. No active bleeding at this time History: Transfused 2 units PRBCs on 11/19 and treatment as above for vaginal bleeding - Monitor daily CBCs and transfuse as needed (4) Acute renal failure Diagnosis: Secondary Plan: Improving. (5) Supratherapeutic INR Diagnosis: Secondary Plan: Presented with supertherapeutic INR on admission. Was switched to xarelto. Due to GI bleed, lengthy discussion with patient, will place patient back on Coumadin at lower dose 3 mg with goal INR of close to 2. Coumadin resumed, INR 1.0. -Patient will need INR ordered when [facility] (6) Pressure ulcer Diagnosis: Secondary Plan: Physical exam, and history reveals stage I/2 pressure ulcer at the sacrum , and bilateral ankle. Wound care nurse consulted. Offload areas as able. (7) History of CVA (cerebrovascular accident) Diagnosis: Secondary Plan: History of CVA 3 with persistent right-sided deficits. Coumadin 3 mg daily . INR subtherapeutic, explained to patient and that we would not bridge because of her tendency and increased risk of bleeding. Will adjust coumadin dose as necessary and follow INR closely. Follow INR. Recheck INR as outpatient. Follows with neurology as an outpatient. (8) FEN/PPX Diagnosis: Secondary Plan: Fluids: HLIV Electrolytes: Monitor and replace when necessary Nutrition: Regular diet as tolerated. Prophylaxis: Coumadin 3 mg daily (Currently on HOLD) Bilat SCDs Chronic medical problems: History of CVA: See above regarding warfarin management. Type 2 diabetes: Hold home metformin. Sliding scale insulin while inpatient. Recent femoral neck fracture: We'll provide PT while inpatient. Morphine 2 mg every 3 hours when necessary pain 6-10. Depression: Continue home citalopram 40 mg by mouth daily. Vitamin D deficiency: Continue current management as an outpatient. Hyperlipidemia: Continue simvastatin. Hypothyroidism: Continue levothyroxine 100 MCG daily Hypertension: Amlodipine 5 mg by mouth daily; she does have a history of labile blood pressures. Carefully monitor. History of adrenal insufficiency: Further workup with endocrinology was recommended as an outpatient. Continue fludrocortisone 0.1 mg by mouth daily. Consultants Gastroenterology Gynecology palliative Procedures Colonoscopy 2 Brief History This is a 56-year-old female who presents with her for increasing generalized weakness. The patient has been evaluated for vaginal bleeding earlier this month. In the beginning of October, she had been passing large clots approximately 3 x 3 cm from the vagina. She is postmenopausal with her last period several years ago. She has had vaginal spotting for the past several months. She is on Coumadin and was supratherapeutic on her admission and 10/23, and is currently supratherapeutic during this admission. She has had a recent hip fracture. Her last Pap smear was June 2016 and was normal. Earlier this month, a transvaginal ultrasound showed no endometrial thickening ( endometrial stripe of 3 mm), but it did show multiple uterine fibroids. It was recommended the patient follow with a FUR EXAMINER. They have not been able to follow with FUR EXAMINER as an outpatient at this time. is at the bedside and provides much of the history. We'll start take care of her since her strokes, fall with femur fracture. He states the patient had 3 "golf ball sized blood clots" per vagina which she passed earlier this morning. Additionally, she has not been able to eat anything for the past 3 days. He thinks her symptoms may have started around Tuesday when she had an exceptionally vigorous physical therapy session. Since that time, she has been very tired and has not been getting out of bed very much. She has been very weak and fatigued. Both describe generalized weakness and nothing unilateral. He does state in her weakened condition from laying on her bottom, she has developed a small area about the size of the pea of skin breakdown on her sacrum. Additionally, her ankles have been showing signs of pressure sores. CBC/BMP: 12/01/16 0742 12/01/16 0742 Significant Findings Laboratory Tests Test 11/28/16 11/29/16 11/30/16 12/01/16 20:16 05:55 05:55 07:42 Hemoglobin 7.8 GM/DL 7.7 GM/DL 8.5 GM/DL 7.9 GM/DL (11.6-15.3) (11.6-15.3) (11.6-15.3) (11.6-15.3) Hematocrit 23.6 % 22.8 % 25.7 % 24.1 % (35.0-46.0) (35.0-46.0) (35.0-46.0) (35.0-46.0) Red Blood Count 2.79 MIL/MM3 3.14 MIL/MM3 2.94 MIL/MM3 (4.00-5.30) (4.00-5.30) (4.00-5.30) Estimat Glomerular Filtration 80 ML/MIN (>89) 88 ML/MIN (>89) 71 ML/MIN (>89) Rate Mean Corpuscular Hemoglobin 26.9 PG 26.8 PG (27.0-34.0) (27.0-34.0) Potassium Level 3.3 MEQ/L (3.5-5.1) Chloride Level 108 MEQ/L (98-107) Random Glucose 111 MG/DL (74-106) Imaging Last Impressions Abdomen/Pelvis CT 11/27/16 0000 Signed Impressions: Service Date/Time: Sunday, November 27, 2016 07:51 - CONCLUSION: 1. The distal ileum is not well-visualized secondary to streak artifact from dense barium in the cecum. Nonspecific, nonobstructive bowel gas pattern most consistent with an ileus or gastroenteritis. There is dense barium with streak artifact leading to suboptimal visualization. 2. Stable appearing left adrenal lipoma. 3. Status post cholecystectomy. 4. Stable appearance of the liver with apparent postoperative change. Shan Cardenas MD Upper GI and Small Bowel X-Ray 11/25/16 0000 Signed Impressions: Service Date/Time: November 09:56 - CONCLUSION: 1. Findings are most typical of small and large bowel ileus. 2. Short segment narrowing of the distal ileum, estimated 20 cm proximal to the ileocecal valve. The etiology of this is uncertain. I don't see a mass or correlative inflammatory changes on the CT back in July. An up-to-date CT of the abdomen and pelvis is recommended. Bal Watkins MD Head CT 11/19/16 1156 Signed Impressions: Service Date/Time: Saturday, November 19, 2016 13:23 - CONCLUSION: 1. No acute hemorrhage or mass effect. 2. Stable small meningioma again noted along the right parietal convexities. 3. Atrophy and old lacunar infarcts. Shan Cardenas MD Chest X-Ray 11/19/16 0000 Signed Impressions: Service Date/Time: Saturday, November 19, 2016 13:28 - CONCLUSION: No acute disease. Shan Cardenas MD PE at Discharge GENERAL: Pleasant but chronically ill-appearing female sitting upright. In no acute distress. SKIN: Per prior EMR note Stage 1 pressure ulcer on the sacrum, skin is intact there is some erythema and tenderness CARDIOVASCULAR: Regular rate and rhythm without murmurs, gallops, or rubs. RESPIRATORY: Clear to auscultation. Breath sounds equal bilaterally. No wheezes , rales, or rhonchi. GASTROINTESTINAL: Abdomen soft, non-tender, nondistended. MUSCULOSKELETAL: Extremities without clubbing, cyanosis, or edema. NEUROLOGICAL: Awake and alert. Slow speech. No obvious focal deficits Hospital Course Gynecology was initially consulted because of persistent vaginal bleeding. Gynecology recommended Provera 10 mg daily for 14 days. The persistent vaginal bleeding from earlier in the month was likely due to persistent elevated INR. After the patient's INR normalized, the patient had no more vaginal bleeding. She received multiple infusions of packed red blood cells. Her hemoglobin continued to decline, although slowly. GI was consulted for Hemoccult-positive stool. They performed 2 colonoscopies (because of poor prep) and an EGD. The EGD on 11/23 showed esophagitis erythematous gastritis. Gastric mucosa on biopsy shows mild chronic inflammation, negative helicobacter. GI recommended Cont PPI, avoid NSAIDs. GI recommended a pill camera follow-through as an outpatient to check for other causes of GI bleeding not found on EGD or colonoscopy. Her Coumadin dosing was continued at a lower level, 3 mg, with a goal of 2.0. [facility] facility will continue to follow the Coumadin dosing with INR checks. The patient continued to work with physical therapy from her history of femoral fracture. She'll be [facility] for continued medical management. Pt Condition on Discharge: Fair Discharge Disposition: Discharge to SNF Discharge Instructions DIET: Follow Instructions for: Heart Healthy Diet, Diabetic Diet Activities you can perform: Weight Bearing as Lakshmi Follow up Referrals: Gastroenterology - 1 Week with Owen Paredes MD PCP Follow-up - [address] Quick New Orders: HGB & HCT - 1 Week PT/INR - Next Day PT/INR - 3-5 Days New Medications: Medroxyprogesterone Acetate (Medroxyprogesterone Acetate) 10 Mg Tab 10 MG PO DAILY #2 TAB Warfarin (Coumadin) 3 Mg Tab 3 MG PO DAILY@16 #30 TAB Continued Medications: Amlodipine (Norvasc) 5 Mg Tab 5 MG PO DAILY #30 TAB Aspirin (Aspirin) 81 Mg Tabdr 81 MG PO DAILY #90 TAB Citalopram (Citalopram) 40 Mg Tab 40 MG PO DAILY hold this medication until course of antibiotics has been completed Control Depression #90 Ref 0 TAB Ergocalciferol (Drisdol) 50,000 Unit Cap 60545 UNITS PO Q7D #6 CAP Ferrous Sulfate (Ferrous Sulfate) 325 Mg Tab 325 MG PO BID #60 TAB Fludrocortisone (Fludrocortisone) 0.1 Mg Tab 0.1 MG PO DAILY #30 Ref 6 TAB Gabapentin (Gabapentin) 800 Mg Tab 800 MG PO TID #270 Ref 0 TAB Hydrocodone-Acetaminophen (Hydrocodone-Acetaminophen) 10-325 mg Tab 1 TAB PO Q6H PRN PAIN #120 Ref 0 TAB Levothyroxine (Levothyroxine) 100 Mcg Tab 100 MCG PO DAILY Thyroid #90 Ref 4 TAB Lisinopril (Lisinopril) 40 Mg Tab 40 MG PO DAILY Blood Pressure Management #30 Ref 6 TAB Metformin (Metformin) 1,000 Mg Tab 1000 MG PO BIDPC With meals Blood Sugar Management #60 Ref 6 TAB Risperidone (Risperdal) 2 Mg Tab 2 MG PO DAILY #30 Ref 0 TAB Sennosides-Docusate Sodium (Senna Plus 8.6-50 mg) 1 Tab Tab 2 TAB PO BID PRN CONSTIPATION #60 TAB Simvastatin (Simvastatin) 40 Mg Tab 40 MG PO HS Cholesterol Management #90 Ref 6 TAB Discontinued Medications: Warfarin (Coumadin) 3 Mg Tab 3 MG PO DAILY Prevent Blood Clot #30 Ref 0 TAB aRlf Trinidad MD R2 December 01, 2016 10:43
[2016-12-01 12:00] VITALS: BP 147/69; PULSE 80; RESP 16; TEMP 97.9; O2SAT 94
--- NOTE | 2016-12-01 12:13 | HHI.GIFU ---
Subjective Remarks Pt resting in bed, in no apparent distress. She denies pain, n/v, bleeding. Per RN she had scant green soft stool this AM. (Dacia Miranda) Objective Vitals I&O Vital Signs Date Time Temp Pulse Resp B/P Pulse Ox O2 Delivery O2 Flow Rate FiO2 12/01/16 12:00 97.9 80 16 147/69 94 12/01/16 09:39 78 12/01/16 08:00 98.7 73 18 143/87 95 12/01/16 04:00 97.6 76 17 165/95 94 12/01/16 00:00 97.6 65 17 144/83 95 11/30/16 20:00 69 11/30/16 20:00 98.5 69 16 97/51 94 11/30/16 16:00 97.6 86 20 117/69 98 11/30/16 13:31 96.3 81 20 154/85 96 I/O 11/30/16 11/30/16 11/30/16 12/01/16 12/01/16 12/01/16 07:00 15:00 23:00 07:00 15:00 23:00 Intake Total 50 ml 800 ml Balance 50 ml 800 ml IV Total 800 ml Other 50 ml # Voids 2 4 1 # Bowel Movements 2 # Sanitary Pads 1 Pads Laboratory Laboratory Tests Test 12/01/16 07:42 White Blood Count 6.0 Red Blood Count 2.94 Hemoglobin 7.9 Hematocrit 24.1 Mean Corpuscular Volume 82.0 Mean Corpuscular Hemoglobin 26.8 Mean Corpuscular Hemoglobin 32.7 Concent Red Cell Distribution Width 14.7 Platelet Count 208 Mean Platelet Volume 8.1 Neutrophils (%) (Auto) 51.8 Lymphocytes (%) (Auto) 36.7 Monocytes (%) (Auto) 7.6 Eosinophils (%) (Auto) 3.1 Basophils (%) (Auto) 0.8 Neutrophils # (Auto) 3.1 Lymphocytes # (Auto) 2.2 Monocytes # (Auto) 0.5 Eosinophils # (Auto) 0.2 Basophils # (Auto) 0.0 CBC Comment DIFF FINAL Differential Comment Prothrombin Time 11.4 Prothromb Time International 1.0 Ratio Sodium Level 142 Potassium Level 3.9 Chloride Level 108 Carbon Dioxide Level 26.8 Anion Gap 7 Blood Urea Nitrogen 9 Creatinine 0.83 Estimat Glomerular Filtration 71 Rate Random Glucose 111 Calcium Level 8.6 Imaging Last Impressions Abdomen/Pelvis CT 11/27/16 0000 Signed Impressions: Service Date/Time: Sunday, November 27, 2016 07:51 - CONCLUSION: 1. The distal ileum is not well-visualized secondary to streak artifact from dense barium in the cecum. Nonspecific, nonobstructive bowel gas pattern most consistent with an ileus or gastroenteritis. There is dense barium with streak artifact leading to suboptimal visualization. 2. Stable appearing left adrenal lipoma. 3. Status post cholecystectomy. 4. Stable appearance of the liver with apparent postoperative change. Shan Cardenas MD Upper GI and Small Bowel X-Ray 11/25/16 0000 Signed Impressions: Service Date/Time: November 09:56 - CONCLUSION: 1. Findings are most typical of small and large bowel ileus. 2. Short segment narrowing of the distal ileum, estimated 20 cm proximal to the ileocecal valve. The etiology of this is uncertain. I don't see a mass or correlative inflammatory changes on the CT back in July. An up-to-date CT of the abdomen and pelvis is recommended. Bal Watkins MD Head CT 11/19/16 1156 Signed Impressions: Service Date/Time: Saturday, November 19, 2016 13:23 - CONCLUSION: 1. No acute hemorrhage or mass effect. 2. Stable small meningioma again noted along the right parietal convexities. 3. Atrophy and old lacunar infarcts. Shan Cardenas MD Chest X-Ray 11/19/16 0000 Signed Impressions: Service Date/Time: Saturday, November 19, 2016 13:28 - CONCLUSION: No acute disease. Shan Cardenas MD Physical Exam HEENT: EOMI; normocephalic; atraumatic; no jaundice. CHEST: Chest is clear to auscultation and percussion. CARDIAC: Regular rate and rhythm with no murmur gallop or rubs. ABDOMEN: Soft, nondistended, nontender; no hepatosplenomegaly; bowel sounds are present in all four quadrants. EXTREMITIES: No clubbing, cyanosis, or edema. SKIN: pale; no rash; no jaundice. PROFESSOR OF LITERATURE: lethargic (Dacia Miranda MEDICAL TECHNOLOGIST GENERALIST) Assessment and Plan Plan ASSESSMENT - anemia, tarry stool/ heme (+) stools - HH stable 7.9, 24.1. no melena in last 3 days. s/p colonoscopy x 2 both with poor prep. 11-30-16 colonoscopy ---> poor prep, internal hemorrhoids, external hemorrhoids. Ct on (11/27/16) --->The distal ileum is not well-visualized secondary to streak artifact from dense barium in the cecum. Nonspecific, nonobstructive bowel gas pattern most consistent with an ileus or gastroenteritis. There is dense barium with streak artifact leading to suboptimal visualization. 2. Stable appearing left adrenal lipoma. 3. Status post cholecystectomy. 4. Stable appearance of the liver with apparent postoperative change. SBFT 11/25/16 -->1. Findings are most typical of small and large bowel ileus. 2. Short segment narrowing of the distal ileum, estimated 20 cm proximal to the ileocecal valve. The etiology of this is uncertain. I don't see a mass or correlative inflammatory changes on the CT back in July. An up-to-date CT of the abdomen and pelvis is recommended. Pt does not appear to be having symptoms of ileus at this time and she says she is feeling better today than before. s/p EGD 11-23-16 ---> LA class A esophagitis, moderate erythematous gastritis. Colonoscopy 08/24/16 normal, EGD 08/24/16 ---> gastric polyp, path hyperplastic polyp. Per RN vaginal bleeding has ceased. PLAN: - REINALDO - continue to monitor HH - transfuse as necessary - supportive care - okay to DC to SNF - f/u with GI as outpt in 1 week for capsule endoscopy THis pt seen by myself and Dr Connell and this note is written on her behalf. ( Dacia Miranda) Dacia Miranda December 01, 2016 12:13 Lynette Connell MD December 11, 2016 10:35
[2016-12-23] MEDS ORDERED: HYDR-3583 PO (09:38)
[2016-12-23] MEDS ORDERED: TRAM50TA PO (09:38)
[2016-12-24] MEDS ORDERED: WARF-20 PO (10:36)
[2016-12-29] MEDS ORDERED: LEVO88TA2 PO (19:31)
[2017-01-18] MEDS ORDERED: COUM4TAB PO (17:55)
[2017-01-24] MEDS ORDERED: TRAM50TA PO (13:33)
[2017-01-24] MEDS ORDERED: HYDR-3583 PO (13:33)
[2017-01-24] MEDS ORDERED: CIPR100T2 PO (13:48)
[2017-01-24] MEDS ORDERED: CHOL1CAP34 PO (13:51)
[2017-01-24] MEDS ORDERED: FERR300S PO (13:51)
[2017-01-24] MEDS ORDERED: MACR100C2 PO (14:14)
[2017-01-24] MEDS ORDERED: MULT-65 PO (15:00)
== END 2016-12-01 14:48 | DRG 760 ==
LOC: NEPC 11:43 → NEDA 15:19 → HOCB 18:59
PROVIDERS: ADMIT Family Medicine; ATTEND Family Medicine
PROC: 30253N1 (ICD-10-PCS; 2016-11-19)
PROC: 0DB68ZX Excision of Stomach, Via Natural or Artificial Opening Endoscopic, Diagnostic (ICD-10-PCS; 2016-11-23)
PROC: 0DJD8ZZ Inspection of Lower Intestinal Tract, Via Natural or Artificial Opening Endoscopic (ICD-10-PCS; principal; 2016-11-30 10:00)
DX: N95.0 Postmenopausal bleeding (principal); D68.9 Coagulation defect, unspecified; L89.149 Pressure ulcer of left lower back, unspecified stage; L89.139 Pressure ulcer of right lower back, unspecified stage; N17.9 Acute kidney failure, unspecified; K56.7 Ileus, unspecified; N39.0 Urinary tract infection, site not specified; D62 Acute posthemorrhagic anemia; N93.9 Abnormal uterine and vaginal bleeding, unspecified; D64.9 Anemia, unspecified; E11.9 Type 2 diabetes mellitus without complications; I10 Essential (primary) hypertension; E55.9 Vitamin D deficiency, unspecified; L89.509 Pressure ulcer of unspecified ankle, unspecified stage; D25.9 Leiomyoma of uterus, unspecified; E03.9 Hypothyroidism, unspecified; E78.5 Hyperlipidemia, unspecified; G25.81 Restless legs syndrome; G47.33 Obstructive sleep apnea (adult) (pediatric); J45.909 Unspecified asthma, uncomplicated; K20.9 Esophagitis, unspecified; K29.70 Gastritis, unspecified, without bleeding; K52.9 Noninfective gastroenteritis and colitis, unspecified; K64.4 Residual hemorrhoidal skin tags; Z51.5 Encounter for palliative care; Z66 Do not resuscitate; Z79.01 Long term (current) use of anticoagulants; Z79.899 Other long term (current) drug therapy; Z80.8 Family history of malignant neoplasm of other organs or systems; Z82.49 Family history of ischemic heart disease and other diseases of the circulatory system; D17.9 Benign lipomatous neoplasm, unspecified; D32.9 Benign neoplasm of meninges, unspecified; F03.90 Unspecified dementia, unspecified severity, without behavioral disturbance, psychotic disturbance, mood disturbance, and anxiety; F32.9 Major depressive disorder, single episode, unspecified; D50.9 Iron deficiency anemia, unspecified
CPT/HCPCS: 36430; 70450; 71010; 74177; 74245; 80048; 80053; 81001; 82272; 82550; 82565; 82948; 83605; 83735; 84484; 85014; 85018; 85025; 85027; 85610; 85730; 86850; 86900; 86901; 86920; 87040; 87077; 87086; 87186; 88305; 88312; 93005; 96360; J0696; J2270; J2405; J7030; J7050; P9016; P9612; Q9963; Q9967

== ENCOUNTER 2017-01-05 17:04 | Inpatient (IN) | payer OTHER ==
[2017-01-05] VITALS (8 sets, daily range): BP systolic 106–136; BP diastolic 62–81; PULSE 92–100; RESP 14–20; TEMP 97.9–98.9; O2SAT 93–98
[~2017-01-05] VITALS: Ht 172.7 cm; Wt 70.0 kg
[~2017-01-05 17:04] MED LIST changes: -LEVO100T5 PO; +LEVO88TA2 PO; +MEDR10TA7 PO; +WARF-20 PO
[2017-01-05] MEDS ORDERED: FERR325T2 PO (17:51)
[2017-01-05] MEDS ORDERED: CHOL1CAP34 PO (17:51)
[2017-01-05] MEDS ORDERED: ASPI1TAB91 PO (17:51)
[2017-01-05 17:54] LABS: AUTOMATED NEUTROPHIL # 7.1 TH/MM3 (1.8-7.7); BASOPHIL % 0.2 % (0.0-2.0); EOSINOPHIL % 0.4 % (0.0-4.0); HEMATOCRIT 23.5 % (35.0-46.0); HEMO FLAGS DIFF FINAL; LYMPH % 24.2 % (9.0-44.0); LYMPHOCYTE # 2.6 TH/MM3 (1.0-4.8); MEAN CELL VOLUME 82.6 FL (80.0-100.0); MEAN CORPUSCULAR HEMOGLOBIN 26.2 PG (27.0-34.0); MEAN CORPUSCULAR HGB CONC 31.7 % (32.0-36.0); MONO % 9.1 % (0.0-8.0); NEUT % 66.1 % (16.0-70.0); PLATELET COUNT 213 TH/MM3 (150-450); RED BLOOD COUNT 2.85 MIL/MM3 (4.00-5.30); RED CELL DISTRIBUTION WIDTH 15.3 % (11.6-17.2); WHITE BLOOD COUNT 10.7 TH/MM3 (4.0-11.0)
[2017-01-05 17:59] LABS: INTERNATIONAL NORMALIZED RATIO 1.3 RATIO; PROTHROMBIN TIME - PATIENT 15.1 SEC (9.8-11.6)
--- NOTE | 2017-01-05 18:04 | RADRPT ---
EXAM DATE/TIME: 01/05/2017 17:28 [facility] COMPARISON: CT ABDOMEN & PELVIS W CONTRAST, November 27, 2016, 7:51. CHEST SINGLE AP, November 19, 2016, 13:28. UGI WIT H SMALL BOWEL SERIES, November 25, 2016, 9:56. INDICATIONS : Shortness of breath. MEDICAL HISTORY : Cardiovascular disease. Hypertension Diabetes mellitus type II. SURGICAL HISTORY : None. ENCOUNTER: Initial ACUITY: 1 day PAIN SCORE: Non-responsive. LOCATION: Bilateral chest FINDINGS: There is a small area of atelectasis in the right midlung field. The lungs are otherwise clear. The h eart is normal in size. The bony structures are grossly intact. CONCLUSION: Small area of atelectasis on the right. This is new when compared to previous. Zelalem Zhou MD on January 05, 2017 at 18:00 Board Certified Radiologist. This report was verified electronically.
[2017-01-05] MEDS ORDERED: AZTREONAM INJ 2,000 MG in SODIUM CHLORIDE 0.9% INJ 100 ML IV ONE (18:30)
[2017-01-05] MEDS ORDERED: VANCOMYCIN INJ 1,000 MG in SODIUM CHLOR 0.9% 250 ML INJ 250 ML IV ONE (18:30)
[2017-01-05 18:33] LABS: BACTERIA, URINE FEW /hpf; BLOOD, URINE NEG (NEG); GLUCOSE,URINE NEG (NEG); KETONE, URINE NEG (NEG); NITRITE,URINE NEG (NEG); SQUAMOUS EPITHELIAL CELL URINE 1 /hpf (0-5); TRIPLE PHOSPHATE CRYSTAL,URINE OCC /hpf
[2017-01-05 18:36] LABS: COMMENT (UR) CATH-CULTURE IND; CULTURE IF INDICATED CATH CULTURE IND; URINE COLOR LIGHT-BROWN (YELLW/STRAW)
[2017-01-05] MEDS ORDERED: SODIUM CHLOR 0.9% 1000 ML INJ 1,000 ML IV ONE ×2 (18:45)
[2017-01-05] MEDS ORDERED: SODIUM CHLOR 0.9% 250 ML INJ 250 ML IV ONE (18:45)
--- NOTE | 2017-01-05 18:50 | PD ---
HPI Chief Complaint: Abnormal Results Time Seen by Provider: 17:07 Travel History International Travel<30 days: No Contact w/Intl Traveler<30days: No Traveled to known affect area: No History of Present Illness HPI Patient is a 56-year-old female presents emergency Department with fever and hypotension. Apparently her called 911 today because she's not been acting herself. EMS reports an axillary temperature of 102. arrives and states the patient has been chronically ill every since she had her stroke several years ago, she's also had some chronic vaginal bleeding and required repeat transfusions. He states that the home health care nurse found her febrile today with rhonchorous upper respiratory sounds but she had a pneumonia and called 911. Patient's been in and out of hospitals for some time, EMS also reported a blood pressure of 70 systolic had received a liter of bolus in route. On arrival the patient is GCS of 14 losing 1 point for some mild confusion. She denies any chest pain shortness of breath abdominal pain nausea vomiting. PFSH Past Medical History Hx Anticoagulant Therapy: Yes (WARFARIN ) Arthritis: Yes Asthma: Yes Autoimmune Disease: Yes (LUPUS) Blood Disorders: No Anxiety: Yes Depression: Yes Heart Rhythm Problems: No Cancer: No Cardiovascular Problems: Yes (HTN) High Cholesterol: Yes Chemotherapy: No Chest Pain: No Congestive Heart Failure: No COPD: No Cerebrovascular Accident: Yes Dementia: Yes Diabetes: Yes Patient Takes Glucophage: No (UNKNOWN) Diminished Hearing: No Endocrine: Yes (DM II) Gastrointestinal Disorders: Yes Glaucoma: No Genitourinary: No Headaches: Yes Hepatitis: No Hiatal Hernia: Yes Heparin Induced Thrombocytopen: No Hypertension: Yes Immune Disorder: Yes (LUPUS) Implanted Vascular Access Dvce: Yes Kidney Stones: No Musculoskeletal: Yes (Arthritis) Neurologic: Yes (CVA November 2012) Psychiatric: Yes (Depression) Reproductive: Yes (ovary removed) Respiratory: Yes (SLEEP APNEA) Immunizations Current: Yes Migraines: No Myocardial Infarction: No Radiation Therapy: No Renal Failure: No Seizures: No Sickle Cell Disease: No Sleep Apnea: Yes Thyroid Disease: Yes (hypothyroidism) Ulcer: No Influenza Vaccination: No Menopausal: Yes : 3 Para: 3 Ovarian Cysts: Yes (R) Tubal Ligation: Yes (R ) Past Surgical History Abdominal Surgery: Yes (cholycystectomy) Appendectomy: No Cardiac Surgery: No Cholecystectomy: Yes Ear Surgery: No Endocrine Surgery: No Eye Surgery: No Genitourinary Surgery: No Gynecologic Surgery: Yes (Ovary removed ) Neurologic Surgery: Yes (Dementia, TIA, CVA) Oral Surgery: No Thoracic Surgery: No Other Surgery: Yes (GALL BLADDER AND OVARY ) Social History Alcohol Use: No Tobacco Use: No Substance Use: No Allergies-Medications (Allergen,Severity, Reaction): Coded Allergies: Penicillin (Verified Allergy, Severe, Rash, 10/23/16) Reported Meds & Prescriptions Reported Meds & Active Scripts Active Levothyroxine (Levothyroxine Sodium) 88 Mcg Tab 88 Mcg PO DAILY Warfarin 4 Mg Tab 4 Mg PO DAILY Tramadol (Tramadol HCl) 50 Mg Tab 50 Mg PO Q6H PRN Hydrocodone-Acetaminophen 10-325 mg Tab 1 Tab PO Q6H PRN Fludrocortisone (Fludrocortisone Acetate) 0.1 Mg Tab 0.1 Mg PO DAILY Lisinopril 40 Mg Tab 40 Mg PO DAILY Metformin (Metformin HCl) 1,000 Mg Tab 1,000 Mg PO BIDPC With meals Simvastatin 40 Mg Tab 40 Mg PO HS Senna Plus 8.6-50 mg (Sennosides-Docusate Sodium) 1 Tab Tab 2 Tab PO BID PRN Norvasc (Amlodipine Besylate) 5 Mg Tab 5 Mg PO DAILY Citalopram (Citalopram Hydrobromide) 40 Mg Tab 40 Mg PO DAILY hold this medication until course of antibiotics has been completed Gabapentin 800 Mg Tab 800 Mg PO TID Reported Ferrous Sulfate DR (Ferrous Sulfate) 325 Mg Tabdr 325 Mg PO BID Vitamin D3 (Cholecalciferol) 50,000 Unit Cap 50,000 Units PO WEEKLY Aspirin Adult Low Strength (Aspirin) 81 Mg Tabdr 81 Mg PO DAILY Risperdal (Risperidone) 2 Mg Tab 2 Mg PO DAILY Review of Systems Except as stated in HPI: all other systems reviewed are Neg Physical Exam Narrative GENERAL: Well-developed thin, pallor, ill appearance. SKIN: Focused skin assessment warm/dry. HEAD: Atraumatic. Normocephalic. EYES: Pupils equal and round. No scleral icterus. No injection or drainage. ENT: No nasal bleeding or discharge. Mucous membranes pink and moist. NECK: Trachea midline. No JVD. CARDIOVASCULAR: Regular rhythm with mild tachycardic. No murmur appreciated. 2 + bilateral equal pulses in all 4 extremities. RESPIRATORY: No accessory muscle use. Clear to auscultation. Breath sounds equal bilaterally. GASTROINTESTINAL: Abdomen soft, non-tender, nondistended. Hepatic and splenic margins not palpable. MUSCULOSKELETAL: No obvious deformities. No clubbing. No cyanosis. No edema. NEUROLOGICAL: Awake and alert. No obvious cranial nerve deficits. Motor grossly within normal limits. Normal speech. PSYCHIATRIC: Appropriate mood and affect; insight and judgment normal. Data Data Last Documented VS Vital Signs Date Time Temp Pulse Resp B/P Pulse Ox O2 Delivery O2 Flow Rate FiO2 01/05/17 19:00 98.2 96 18 119/76 95 Room Air Orders Complete Blood Count With Diff (01/05/17 17:08) Comprehensive Metabolic Panel (01/05/17 17:08) Prothrombin Time / Inr (Pt) (01/05/17:08) Act Partial Throm Time (Ptt) (01/05/17 17:08) Lactic Acid Sepsis Protocol (01/05/17 17:08) Magnesium (Mg) (01/05/17 17:08) Phosphorus (Po4) (01/05/17 17:08) Lipase (01/05/17 17:08) Ckmb (Isoenzyme) Profile (01/05/17 17:08) Troponin I (01/05/17 17:08) Urinalysis - C+S If Indicated (01/05/17 17:08) Blood Culture (01/05/17 17:08) Chest, Single Ap (01/05/17 17:08) Blood Glucose (01/05/17 17:08) Ecg Monitoring (01/05/17 17:08) Iv Access Insert/Monitor (01/05/17 17:08) Oximetry (01/05/17 17:08) Oxygen Administration (01/05/17 17:08) Vancomycin Inj (Vancomycin Inj) (01/05/17 18:30) Aztreonam Inj (Azactam Inj) (01/05/17 18:30) Urine Culture (01/05/17 17:30) Sodium Chlor 0.9% 1000 Ml Inj (Ns 1000 M (01/05/17 18:45) Sodium Chlor 0.9% 1000 Ml Inj (Ns 1000 M (01/05/17 18:45) Type And Screen (01/05/17 18:45) Red Blood Cells (Rbc) (01/05/17 18:45) Blood Product Administration .UPON TRANSFUSION (01/05/17 18:45) Sodium Chlor 0.9% 250 Ml Inj (Ns 250 Ml (01/05/17 18:45) Cath For Specimen (01/05/17 18:49) Admit Order (Ed Use Only) (01/05/17 ) CKMB (01/05/17 23:55) CKMB% (01/05/17 23:55) Labs Laboratory Tests Test 01/05/17 01/05/17 01/05/17 17:15 17:30 19:00 Prothrombin Time 15.1 SEC Prothromb Time International 1.3 RATIO Ratio Activated Partial 33.0 SEC Thromboplast Time Lactic Acid Level 2.9 mmol/L White Blood Count 10.7 TH/MM3 Red Blood Count 2.85 MIL/MM3 Hemoglobin 7.5 GM/DL Hematocrit 23.5 % Mean Corpuscular Volume 82.6 FL Mean Corpuscular Hemoglobin 26.2 PG Mean Corpuscular Hemoglobin 31.7 % Concent Red Cell Distribution Width 15.3 % Platelet Count 213 TH/MM3 Mean Platelet Volume 9.0 FL Neutrophils (%) (Auto) 66.1 % Lymphocytes (%) (Auto) 24.2 % Monocytes (%) (Auto) 9.1 % Eosinophils (%) (Auto) 0.4 % Basophils (%) (Auto) 0.2 % Neutrophils # (Auto) 7.1 TH/MM3 Lymphocytes # (Auto) 2.6 TH/MM3 Monocytes # (Auto) 1.0 TH/MM3 Eosinophils # (Auto) 0.0 TH/MM3 Basophils # (Auto) 0.0 TH/MM3 CBC Comment DIFF FINAL Differential Comment Urine Color LIGHT-BROWN Urine Turbidity HAZY Urine pH 8.0 Urine Specific [place] 1.021 Urine Protein 30 mg/dL Urine Glucose (UA) NEG mg/dL Urine Ketones NEG mg/dL Urine Occult Blood NEG Urine Nitrite NEG Urine Bilirubin NEG Urine Urobilinogen 2.0 MG/DL Urine Leukocyte Esterase NEG Urine RBC 1 /hpf Urine WBC 10 /hpf Urine Squamous Epithelial 1 /hpf Cells Urine Triple Phosphate OCC /hpf Crystals Urine Bacteria FEW /hpf Microscopic Urinalysis Comment CATH-CULTURE IND Blood Type A POSITIVE Antibody Screen NEGATIVE Crossmatch Leukocyte-Reduced Red Blood Cells Blood Bank Comment [facility] Medical Decision Making Medical Screen Exam Complete: Yes Emergency Medical Condition: Yes Differential Diagnosis Sepsis, septic shock, severe sepsis, pneumonia, UTI, anemia. Narrative Course Patient roomed in the emergency department, initially hypotensive responded quite well to 2 L normal saline bolus, lactic acid is 2.9 after the first liter and before the second liter. Vancomycin and Azactam started given the patient' s in the hospital status consideration for hospital associated pneumonia. Patient is notably anemic prior to fluid bolus and expect some level of hemodilution and therefore transfusion is indicated, after discussion of risks benefits competitions and alternatives to transfusion patient and her are agreeable. Chest x-ray is negative however the patient's UA does show some evidence of urinary tract infection. She is therefore septic and would recommend admission. She is agreeable. She is stable for floor this time. Critical Care Narrative Aggregate critical care time was 35 minutes. Time to perform other separately billable procedures was not included in the critical care time. My time did not include minutes spent treating any other patients simultaneously or on activities that did not directly contribute to the patient's treatment. The services I provided to this patient were to treat and/or prevent clinically significant deterioration that could result in: , disability, organ failure I provided critical care services requiring my management, as noted below: Chart data review, documentation time, medication orders and management, vital sign assessments/reviewing monitor data, ordering and reviewing lab tests, ordering and interpreting/reviewing x-rays and diagnostic studies, care of the patient and discussion of the patient with the admitting physicians. Sepsis Criteria SIRS Criteria (2 or more): Temp > 100.9 or < 96.8 Sepsis Criteria (SIRS+source): Infect source susp/known Severe Sepsis (+one): Lactate >2 Diagnosis Primary Impression: Sepsis due to urinary tract infection Additional Impressions: Anemia Qualified Code: D64.9 - Anemia, unspecified type Vaginal bleeding Admitting Information Admitting Physician Requests: Admit Condition: Stable Almas Garcia MD Jan 05, 2017 18:50
[2017-01-05 19:38] LABS: LACTIC ACID GHOST NOT REPORTABLE
--- NOTE | 2017-01-05 20:03 | HHI.HP ---
HPI Service Family Medicine Primary Care Physician Shan Quick MD Admission Diagnosis Sepsis, UTI, Anemia. Diagnoses: International Travel<30 Days: No Contact w/Intl Traveler<30days: No Known Affected Area: No History of Present Illness Patient is a 56 year old female with PMH significant for CVA x3, SLE, T2DM, CKD , HTN, hypothyroidism brought to the ED by EMS after her called 911 earlier today due to the patient not acting at her baseline. Per EMS report, patient also had a fever of 102F taken axillary and hypotension as low as 70s systolic. Patient received 1L bolus en route to the ED. 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 Patient is able to answer basic questions appropriately. She denies any chest pain, difficulty breathing or SOB , headache, feeling feverish, or abdominal pain. states the patient at baseline is alert, however not always oriented to place or time. She is usually always oriented to person. states the patient at baseline has poor PO intake of solids and liquids. He states there was a 12 hour period from late last night to sometime early this afternoon where she did not have any urine production. He does not think the patient has had any fevers, chills, or night sweats over the past couple weeks. He does report the patient having a cough over the last couple weeks that has been nonproductive. He denies any report or noticing any chest pain or SOB from the patient. He denies any significant vaginal bleeding from the patient as well since being discharged from her previous hospital stay on 12/01. The patient was admitted to the hospital here from 11/19-12/01 due to GI bleed and vaginal bleeding secondary to supratherapeutic INR of 3.4 on admission. Patient had a colonoscopy on 11/30 with findings of small internal hemorrhoids, external hemorrhoids, recommending yearly rectal exams and repeat colonoscopy in one year. A TVUS from 10/23/16 performed after the patient presented on 10/23 with vaginal bleeding showed multiple uterine fibroids and 3 mm endometrial stripe; patient completed 14 days of provera 10mg po daily per obstetrician gynecologist recommendations. (Roberto Carlos Frye MD R1) Review of Systems ROS Limitations: Clinical Condition Constitutional: DENIES: Fever Respiratory: COMPLAINS OF: Cough, DENIES: Wheezing, Sputum production, Shortness of breath Cardiovascular: DENIES: Chest pain Gastrointestinal: DENIES: Abdominal pain Neurologic: DENIES: Headache (Roberto Carlos Frye MD R1) Past Family Social History Past Medical History History of CVA 3 with persistent right-sided deficits SLE T2DM CKD stage 3 Femoral neck fracture Depression Vitamin D deficiency HLD Hypothyroidism HTN H/o adrenal insufficiency Past Surgical History percutaneous pinning of L femur fx 08/2016 Cholecystectomy 1996 Right oophero salpingectomy 1996 (Roberto Carlos Frye MD R1) Allergies: Coded Allergies: Penicillin (Verified Allergy, Severe, Rash, 10/23/16) Family History Father's at 63 of throat and tongue cancer Mother is at 55 cardiac complications One sister has cardiac disease and hypertension Social History Currently living with at home Per EMR: Tobacco: Denies Alcohol: Denies Drugs: Denies (Roberto Carlos Frye MD R1) Physical Exam Vital Signs Vital Signs Date Time Temp Pulse Resp B/P Pulse Ox O2 Delivery O2 Flow Rate FiO2 01/05/17 18:30 100 20 106/72 93 Room Air 01/05/17 17:38 97.9 92 20 108/62 93 Room Air 01/05/17 17:38 93 Room Air 01/05/17 17:13 14 97 Room Air 01/05/17 17:08 96 14 108/62 93 Physical Exam GENERAL: NAD, lying comfortably in bed NEURO: Alert. Oriented to person and place. Not oriented to time, states it is sometime in the 1970s. Speech is soft, no slurring. document design specialist grossly intact. SKIN: Warm and dry. No rashes or erythema. HEAD: Normocephalic. Atraumatic. EYES: PERRL. EOMI. No scleral icterus. No injection or drainage. ENT: No nasal drainage. Moist mucous membranes. No oral ulcers or lesions. NECK: Supple, trachea midline. No JVD. CARDIOVASCULAR: Regular rate and rhythm without murmurs, rubs, or gallops. Peripheral pulses 2+. Capillary refill ~3 seconds. RESPIRATORY: Breath sounds clear to auscultation and equal bilaterally, without wheezes, rales, or rhonchi. No accessory muscle use. GASTROINTESTINAL: Abdomen soft, nontender, nondistended, normal BS. No organomegaly or masses. No rebound tenderness. No guarding. MUSCULOSKELETAL: No edema, cyanosis, or clubbing. Normal range of motion. Laboratory Laboratory Tests Test 01/05/17 01/05/17 01/05/17 17:15 17:30 19:00 White Blood Count 10.7 Red Blood Count 2.85 Hemoglobin 7.5 Hematocrit 23.5 Mean Corpuscular Volume 82.6 Mean Corpuscular Hemoglobin 26.2 Mean Corpuscular Hemoglobin 31.7 Concent Red Cell Distribution Width 15.3 Platelet Count 213 Mean Platelet Volume 9.0 Neutrophils (%) (Auto) 66.1 Lymphocytes (%) (Auto) 24.2 Monocytes (%) (Auto) 9.1 Eosinophils (%) (Auto) 0.4 Basophils (%) (Auto) 0.2 Neutrophils # (Auto) 7.1 Lymphocytes # (Auto) 2.6 Monocytes # (Auto) 1.0 Eosinophils # (Auto) 0.0 Basophils # (Auto) 0.0 CBC Comment DIFF FINAL Differential Comment Prothrombin Time 15.1 Prothromb Time International 1.3 Ratio Activated Partial 33.0 Thromboplast Time Lactic Acid Level 2.9 Urine Color LIGHT-BROWN Urine Turbidity HAZY Urine pH 8.0 Urine Specific [place] 1.021 Urine Protein 30 Urine Glucose (UA) NEG Urine Ketones NEG Urine Occult Blood NEG Urine Nitrite NEG Urine Bilirubin NEG Urine Urobilinogen 2.0 Urine Leukocyte Esterase NEG Urine RBC 1 Urine WBC 10 Urine Squamous Epithelial 1 Cells Urine Triple Phosphate OCC Crystals Urine Bacteria FEW Microscopic Urinalysis Comment CATH-CULTURE IND Blood Type A POSITIVE Antibody Screen NEGATIVE Crossmatch Leukocyte-Reduced Red Blood Cells Blood Bank Comment Date/Time Procedure Status Source Growth 01/05/17 17:30 Urine Culture Received Urine Catheterized Urine Pending 01/05/17 17:20 Aerobic Blood Culture Received Blood Peripheral Pending 01/05/17 17:20 Anaerobic Blood Culture Received Blood Peripheral Pending (Roberto Carlos Frye MD R1) Result Diagram: 01/05/17 1715 Septic Shock Reassessment Heart: Regular rate and rhythm Lungs: Clear Skin: Warm, Dry Peripheral Pulses: Bounding Right Radial Bounding Left Radial Bounding Right Dorsalis Pedis Bounding Left Dorsalis Pedis Bounding Right Posterior Tibial Bounding Left Posterior Tibial Capillary Refill: >2 seconds (Cap refill ~3 seconds) (Roberto Carlos Frye MD R1) Assessment and Plan Assessment and Plan 56 year old female with PMH significant for CVA x3, SLE, T2DM, CKD, HTN, hypothyroidism brought to the ED by EMS after her called 911 earlier today due to the patient not acting at her baseline; pt also had a fever of 102F taken axillary per EMS report and was hypotensive down to 70s systolic that is now improved and stable s/p 1L NS bolus en route to the ED and additional 2L NS in the ED. Patient meets criteria for severe sepsis with source presumably a UTI. Code Status DNR/DNI (Roberto Carlos Frye MD R1) Problem List: (1) UTI (urinary tract infection) Status: Acute Plan: Afebrile in ED, vitals now stable s/p 2L NS bolus in the ED UA negative for nitrites, negative LE, 10 WBCs, few bacteria Urine culture pending Received Vancomycin 1gm IV and aztreonam 2gm IV in the ED Continue aztreonam 2gm IV q12h for treatment of UTI and patient has a penicillin allergy Continue with IVF hydration with NS at 165 cc/hr Monitor I/Os Monitor vitals q2h (2) Sepsis Status: Acute Plan: Patient met criteria for severe sepsis Source presumed to be a UTI does report a cough for about the past 2 weeks that is nonproductive Lungs are clear on exam CXR appears normal without any finding concerning for pneumonia Lactic acid 2.9 on admission, continue to trend Follow blood and urine cultures Plan as above (3) Anemia Status: Acute Plan: Hgb 7.5 on admission, suspect this is chronic anemia; Hgb 7.9 at time of discharge from most recent hospitalization Hemoccult likely to be positive in light of patient on Coumadin No significant vaginal bleeding since discharge last month INR 1.3 Type and screen, 2 units PRBCs to be given as Hgb will become hemodiluted with IVF being administered (4) JAMAL (acute kidney injury) Status: Acute Plan: Cr elevated 1.82 on admission, likely secondary to sepsis and hypotension Baseline Cr ~0.8 IVF as above Continue to monitor (5) Anticoagulated on Coumadin Status: Chronic Plan: Trend INR Continue Coumadin 2.5mg po daily as there is no evidence of any acute bleed (6) History of CVA with residual deficit Status: Chronic Plan: Continue Coumadin at 2.5 mg po daily PT Bed rest for now Neuro checks q4h (7) History of adrenal insufficiency Status: Chronic Plan: Continue fludrocortisone 0.1 mg po daily (8) Hypothyroidism Status: Chronic Plan: Continue home Synthroid (9) DM (diabetes mellitus) Status: Chronic Plan: Accuchecks ACHS Low-dose ISS (10) FEN/PPX Status: Acute Plan: Fluids: NS at 165 cc/hr Electrolytes: WNLs, continue to monitor Nutrition: NPO for now, await bedside swallow study, resume diet if able in the AM DVT ppx: Coumadin, b/l SCDs (Roberto Carlos Frye MD R1) Physician Certification 2 Midnight Certification Type: Admission for Inpatient Services Order for Inpatient Services The services are ordered in accordance with Medicare regulations or non- Medicare payer requirements, as applicable. In the case of services not specified as inpatient-only, they are appropriately provided as inpatient services in accordance with the 2-midnight benchmark. Estimated LOS (days): 2 days is the estimated time the patient will need to remain in the hospital, assuming treatment plan goals are met and no additional complications. Post-Hospital Plan: Home (Roberto Carlos Frye MD R1) Roberto Carlos Frye MD R1 Jan 05, 2017 20:03 Danielle Trinidad MD Jan 07, 2017 08:06
[2017-01-05] MEDS ORDERED: NALOXONE HCL 0.4 MG/ML AMP IV PRN (21:15)
[2017-01-05] MEDS ORDERED: ONDANSETRON HCL 4 MG/2 ML VIAL IV PRN (21:15)
[2017-01-05] MEDS ORDERED: SODIUM CHLORIDE 0.9% FLUSH 10 ML FLUSH IV FLUSH PRN (21:15)
[2017-01-05] MEDS: SODIUM CHLOR 0.9% 1000 ML INJ 1,000 ML IV SCH (21:57)
[2017-01-05] MEDS ORDERED: ENOXAPARIN SODIUM 40 MG/0.4 ML SYRINGE SQ SCH (22:00)
[2017-01-06] VITALS (10 sets, daily range): BP systolic 103–164; BP diastolic 62–91; PULSE 76–94; RESP 15–20; TEMP 96.3–101; O2SAT 91–98
[2017-01-06 00:38] LABS: ALT (GPT) 14 U/L (10-53); ANION GAP 8 MEQ/L (5-15); AST (GOT) 15 U/L (15-37); BICARBONATE 25.8 MEQ/L (21.0-32.0); BLOOD UREA NITROGEN 51 MG/DL (7-18); CHLORIDE 106 MEQ/L (98-107); GLOMERULAR FILTRATION RATE 29 ML/MIN (>89); MAGNESIUM 1.6 MG/DL (1.5-2.5); POTASSIUM 4.8 MEQ/L (3.5-5.1); SODIUM (NA) 140 MEQ/L (136-145)
[2017-01-06 00:41] LABS: ALKALINE PHOSPHATASE 81 U/L (45-117); CREATINE KINASE 130 U/L (26-192); TOTAL BILIRUBIN ADULT 0.2 MG/DL (0.2-1.0)
[2017-01-06 00:54] LABS: CKMB 1.6 NG/ML (0.5-3.6)
[2017-01-06] MEDS ORDERED: ACETAMINOPHEN 650 MG SUPP RECTAL PRN (02:30)
[2017-01-06] MEDS ORDERED: FUROSEMIDE 20 MG/2 ML VIAL IV ONE (02:30)
[2017-01-06] MEDS: SODIUM CHLOR 0.9% 1000 ML INJ 1,000 ML IV SCH ×4 (03:11→21:19)
[2017-01-06] MEDS: LEVOTHYROXINE SODIUM 88 MCG TAB PO SCH (05:42)
[2017-01-06] MEDS: INSULIN ASPART SUPPLEMENTAL SCALE SQ SCH ×2 (07:00→11:00)
[2017-01-06] MEDS: AZTREONAM INJ 2,000 MG in SODIUM CHLORIDE 0.9% INJ 100 ML IV SCH ×2 (08:24→20:07)
[2017-01-06] MEDS: risperiDONE 1 MG TAB PO SCH (08:30)
[2017-01-06] MEDS: FERROUS SULFATE 300 MG /5ML UDC PO SCH (08:30)
[2017-01-06 08:31] LABS: AUTOMATED NEUTROPHIL # 10.7 TH/MM3 (1.8-7.7); BASOPHIL # 0.1 TH/MM3 (0-0.2); BASOPHIL % 0.4 % (0.0-2.0); EOSINOPHIL # 0.1 TH/MM3 (0-0.4); EOSINOPHIL % 0.6 % (0.0-4.0); HEMATOCRIT 34.5 % (35.0-46.0); HEMO FLAGS DIFF FINAL; LYMPH % 8.9 % (9.0-44.0); LYMPHOCYTE # 1.1 TH/MM3 (1.0-4.8); MEAN CELL VOLUME 82.9 FL (80.0-100.0); MEAN CORPUSCULAR HEMOGLOBIN 27.5 PG (27.0-34.0); MEAN CORPUSCULAR HGB CONC 33.2 % (32.0-36.0); MONO % 6.3 % (0.0-8.0); NEUT % 83.8 % (16.0-70.0); PLATELET COUNT 212 TH/MM3 (150-450); RED BLOOD COUNT 4.16 MIL/MM3 (4.00-5.30); RED CELL DISTRIBUTION WIDTH 15.5 % (11.6-17.2); WHITE BLOOD COUNT 12.8 TH/MM3 (4.0-11.0)
[2017-01-06] MEDS: ASPIRIN EC 81 MG TABEC PO SCH (08:31)
[2017-01-06] MEDS: CITALOPRAM HYDROBROMIDE 40 MG TAB PO SCH (08:31)
[2017-01-06] MEDS: FLUDROCORTISONE ACETATE 0.1 MG TAB PO SCH (08:31)
[2017-01-06] MEDS: GABAPENTIN 400 MG CAP PO SCH ×3 (08:31→17:11)
[2017-01-06 08:42] LABS: INTERNATIONAL NORMALIZED RATIO 1.3 RATIO; PROTHROMBIN TIME - PATIENT 14.5 SEC (9.8-11.6)
[2017-01-06] MEDS ORDERED: NON-FORMULARY DRUG (Lisinopril 40 MG) PO SCH (09:00)
[2017-01-06] MEDS ORDERED: CHOLECALCIFEROL (VIT D3) 5000 UNIT CAP PO SCH (09:00)
[2017-01-06 09:02] LABS: ANION GAP 12 MEQ/L (5-15); AST (GOT) 17 U/L (15-37); BICARBONATE 23.6 MEQ/L (21.0-32.0); BLOOD UREA NITROGEN 42 MG/DL (7-18); CHLORIDE 102 MEQ/L (98-107); GLOMERULAR FILTRATION RATE 44 ML/MIN (>89); POTASSIUM 4.3 MEQ/L (3.5-5.1); SODIUM (NA) 138 MEQ/L (136-145)
[2017-01-06 09:03] LABS: ALT (GPT) 18 U/L (10-53)
[2017-01-06 09:05] LABS: ALKALINE PHOSPHATASE 100 U/L (45-117); TOTAL BILIRUBIN ADULT 1.2 MG/DL (0.2-1.0)
[2017-01-06] MEDS: metFORMIN HCL 500 MG TAB PO SCH ×2 (12:15→17:11)
[2017-01-06] MEDS ORDERED: IOHEXOL 350 MG/ML 10 ML VIAL (for RAD DIAG) IV ONE (13:03)
--- NOTE | 2017-01-06 14:01 | RADRPT ---
EXAM DATE/TIME: 01/06/2017 13:01 [facility] COMPARISON: No previous studies available for comparison. INDICATIONS : Evaluate for embolism, elevated D dimer and shortness of breath. IV CONTRAST: 50 cc Omnipaque 350 (iohexol) IV RADIATION DOSE: 13.66 CTDIvol (mGy) MEDICAL HISTORY : Cardiovascular disease. Hypertension. Dementia.Lupus, Thyroid disease. SURGICAL HISTORY : Cholecystectomy. Ovary removed. ENCOUNTER: Subsequent ACUITY: 1 day PAIN SCALE: 2/10 LOCATION: chest TECHNIQUE: Volumetric scanning of the chest was performed using a pulmonary embolism protocol MIP images were re constructed. Using automated exposure control and adjustment of the mA and/or kV according to patien t size, radiation dose was kept as low as reasonably achievable to obtain optimal diagnostic quality images. FINDINGS: PULMONARY ARTERIES: No filling defects are seen in the pulmonary arteries through the segmental level. LUNGS: Consolidation subsegmental airspace disease is identified in both lower lobes. PLEURAE: There is no pleural thickening or pleural effusion. MEDIASTINUM: There is good visualization of the great vessels of the middle mediastinum. No evidence of mediastin al or hilar adenopathy/mass. MUSCULOSKELETAL: Within normal limits for patient age. MISCELLANEOUS: Upper abdominal structures are stable. Posttreatment scarring in the liver is again noted. CONCLUSION: No evidence of pulmonary embolism. Bilateral lower lobe subsegmental consolidating airspace disease. Aly Elizalde MD on January 06, 2017 at 13:55 Board Certified Radiologist. This report was verified electronically.
--- NOTE | 2017-01-06 14:42 | HHI.FPPN ---
Subjective Remarks Pt. seen and examined, discussed with the medicine team. This is a 56 yo female patient of Dr. Shan Quick who was seen at home by home health today, temp 99.5 and home health had [facility] bring pt. to the hospital. She is cared for at home by her , who works multimedia programmer. She had a stroke in June 2014, and has gradually lost more and more strength and memory. She is now total care. reports that since July of this year she has gone downhill more that she had in the prior two years. She is unable to pivot to stand any longer. has had hospice in mind for her in his head, but not in his heart. She has had 3 CVAs, lupus, hypothyroidism. Recently worse dysphagia, cough, and fairly recently had GI/vaginal bleeding due to elevated INRs. Had a femur fracture with ORIF in August 2016. Please see H&P for this admission for additional historical information including past, family, social history and ROS at the time of admission. When seen by me today, is essentially nonverbal. reports that he no longer can manage caring for her and he only wants her to be comfortable. He is not seeking a cure. Objective Vitals Vital Signs Date Time Temp Pulse Resp B/P Pulse Ox O2 Delivery O2 Flow Rate FiO2 01/06/17 12:26 96.3 84 18 148/84 93 01/06/17 10:35 95 Nasal Cannula 2.00 01/06/17 06:17 99.5 88 20 147/86 91 01/06/17 04:00 99.0 94 20 164/91 98 01/06/17 03:32 98.9 82 20 127/77 95 01/06/17 03:29 Nasal Cannula 2.00 01/06/17 03:17 99.6 85 20 136/75 91 01/06/17 02:00 101.0 01/06/17 01:00 94 15 119/81 98 Nasal Cannula 2 01/05/17 23:00 98.8 96 17 120/70 97 Nasal Cannula 2 01/05/17 21:30 98.9 92 14 113/72 93 Nasal Cannula 2 01/05/17 21:16 94 01/05/17 21:00 94 17 136/81 98 Nasal Cannula 2 01/05/17 19:00 98.2 96 18 119/76 95 Room Air 01/05/17 18:30 100 20 106/72 93 Room Air 01/05/17 17:38 97.9 92 20 108/62 93 Room Air 01/05/17 17:38 93 Room Air 01/05/17 17:13 14 97 Room Air 01/05/17 17:08 96 14 108/62 93 I/O 01/05/17 01/05/17 01/05/17 01/06/17 01/06/17 01/06/17 07:00 15:00 23:00 07:00 15:00 23:00 Intake Total 250 ml Balance 250 ml Intake Oral 0 ml Packed Cells 250 ml # Voids 0 # Bowel Movements 0 Result Diagram: 01/06/17 0810 01/06/17 0810 Other Results Laboratory Tests Test 01/05/17 01/05/17 01/05/17 01/06/17 17:15 17:30 23:55 02:10 Prothrombin Time 15.1 SEC Activated Partial 33.0 SEC Thromboplast Time Lactic Acid Level 2.9 mmol/L Red Blood Count 2.85 MIL/MM3 Hemoglobin 7.5 GM/DL Hematocrit 23.5 % Mean Corpuscular Hemoglobin 26.2 PG Mean Corpuscular Hemoglobin 31.7 % Concent Monocytes (%) (Auto) 9.1 % Monocytes # (Auto) 1.0 TH/MM3 Urine Color LIGHT-BROWN Urine Turbidity HAZY Urine Protein 30 mg/dL Urine WBC 10 /hpf Urine Triple Phosphate OCC /hpf Crystals Urine Bacteria FEW /hpf Blood Urea Nitrogen 51 MG/DL Creatinine 1.82 MG/DL Estimat Glomerular Filtration 29 ML/MIN Rate Total Protein 5.9 GM/DL Albumin 2.5 GM/DL Lipase 72 U/L D-Dimer Quantitative (PE/DVT) 0.97 MG/L FEU Test 01/06/17 08:10 White Blood Count 12.8 TH/MM3 Hemoglobin 11.4 GM/DL Hematocrit 34.5 % Neutrophils (%) (Auto) 83.8 % Lymphocytes (%) (Auto) 8.9 % Neutrophils # (Auto) 10.7 TH/MM3 Prothrombin Time 14.5 SEC Blood Urea Nitrogen 42 MG/DL Creatinine 1.25 MG/DL Estimat Glomerular Filtration 44 ML/MIN Rate Total Bilirubin 1.2 MG/DL Albumin 2.7 GM/DL Imaging Last Impressions CT Angiography 01/06/17 0000 Signed Impressions: Service Date/Time: December 13:01 - CONCLUSION: No evidence of pulmonary embolism. Bilateral lower lobe subsegmental consolidating airspace disease. Aly Elizalde MD Chest X-Ray 01/05/17 1708 Signed Impressions: Service Date/Time: Thursday, January 05, 2017 17:28 - CONCLUSION: Small area of atelectasis on the right. This is new when compared to previous. Zelalem Zhou MD Objective Remarks O. CONSTITUTIONAL/GEN: poorly nourished, takes essentially only fluids with difficulty. EYES: no scleral icterus ENT: MM dry NECK: No palpable thyromegaly LUNGS: poor respiratory effort CARDIOVASCULAR: RR without murmur or gallop. No significant edema. GI/ABD: soft without masses, without organomegaly. NEURO: essentially nonverbal, lethargic SKIN: pale PSYCH/MENTAL STATUS: Minimally responsive, slow responses if any, difficult to understand A/P Assessment and Plan 56 year old female with PMH significant for CVA x3, SLE, T2DM, CKD, HTN, hypothyroidism brought to the ED by EMS after her called 911 earlier today due to the patient not acting at her baseline; pt also had a fever of 102F taken axillary per EMS report and was hypotensive down to 70s systolic that is now improved and stable s/p 1L NS bolus en route to the ED and additional 2L NS in the ED. Patient meets criteria for severe sepsis with source presumably a UTI. Discharge Planning asks for hospice consultation with [facility]. Attending Attestation Patient seen and examined. Case reviewed and discussed with the resident team. Agree with plan of care as discussed with me and documented in the resident note. Problem List: (1) UTI (urinary tract infection) Status: Acute Plan: Afebrile in ED, vitals now stable s/p 2L NS bolus in the ED UA negative for nitrites, negative LE, 10 WBCs, few bacteria Urine culture pending Received Vancomycin 1gm IV and aztreonam 2gm IV in the ED Continue aztreonam 2gm IV q12h for treatment of UTI and patient has a penicillin allergy Continue with IVF hydration with NS at 165 cc/hr Monitor I/Os Monitor vitals q2h (2) Sepsis Status: Acute Plan: Patient met criteria for severe sepsis Source presumed to be a UTI does report a cough for about the past 2 weeks that is nonproductive Lungs are clear on exam CXR appears normal without any finding concerning for pneumonia Lactic acid 2.9 on admission, continue to trend Follow blood and urine cultures Plan as above (3) Anemia Status: Acute Plan: Hgb 7.5 on admission, suspect this is chronic anemia; Hgb 7.9 at time of discharge from most recent hospitalization Hemoccult likely to be positive in light of patient on Coumadin No significant vaginal bleeding since discharge last month INR 1.3 Type and screen, 2 units PRBCs to be given as Hgb will become hemodiluted with IVF being administered (4) JAMAL (acute kidney injury) Status: Acute Plan: Cr elevated 1.82 on admission, likely secondary to sepsis and hypotension Baseline Cr ~0.8 IVF as above Continue to monitor (5) Anticoagulated on Coumadin Status: Chronic Plan: Trend INR Continue Coumadin 2.5mg po daily as there is no evidence of any acute bleed (6) History of CVA with residual deficit Status: Chronic Plan: Continue Coumadin at 2.5 mg po daily PT Bed rest for now Neuro checks q4h (7) History of adrenal insufficiency Status: Chronic Plan: Continue fludrocortisone 0.1 mg po daily (8) Hypothyroidism Status: Chronic Plan: Continue home Synthroid (9) DM (diabetes mellitus) Status: Chronic Plan: Accuchecks ACHS Low-dose ISS (10) FEN/PPX Status: Acute Plan: Fluids: NS at 165 cc/hr Electrolytes: WNLs, continue to monitor Nutrition: NPO for now, await bedside swallow study, resume diet if able in the AM DVT ppx: Coumadin, b/l SCDs Danielle Trinidad MD Jan 06, 2017 14:42
--- NOTE | 2017-01-06 15:19 | EKG ---
Date Performed: 01/05/2017 Time Performed: 17:11:49 PTAGE: 56 years EKG: Sinus rhythm NONSPECIFIC T-WAVE ABNORMALITY BORDERLINE ECG Compared to prior tracing no significant change PREVIOUS TRACING 11/19/2016 2 12.11 DOCTOR: Shadi Mueller Interpretating Date/Time 01/06/2017 15:17:53
[2017-01-06] MEDS ORDERED: WARFARIN SOD 2.5 MG TAB PO SCH ×2 (16:00)
[2017-01-06] MEDS: WARFARIN SOD 5 MG TAB PO SCH (17:11)
[2017-01-06] MEDS: ACETAMINOPHEN/HYDROcodone 325 MG/5 MG TAB PO PRN (18:37)
[2017-01-06] MEDS: PRAVASTATIN SOD 80 MG TAB PO SCH ×2 (20:07→21:00)
--- NOTE | 2017-01-06 22:06 | HHI.FPPN ---
Subjective Remarks Patient seen and examined this morning by medical team. Patient with one fever overnight to 101 with no acute events. Her is at the bedside and provides most of the history during the interview as the patient is essentially nonverbal. However, the patient did answer some review of systems questions indicating she was not in pain or had any current complaints. Of note medical team paged by staff that her would like a hospice consult as he feels he can no longer manage her care by himself at home. (Dejuan Hunt MD R1) Objective Vitals Vital Signs Date Time Temp Pulse Resp B/P Pulse Ox O2 Delivery O2 Flow Rate FiO2 01/06/17 19:54 97.2 76 18 103/62 92 01/06/17 17:57 93 Nasal Cannula 2.00 01/06/17 12:26 96.3 84 18 148/84 93 01/06/17 10:35 95 Nasal Cannula 2.00 01/06/17 08:55 92 Nasal Cannula 2.00 01/06/17 06:17 99.5 88 20 147/86 91 01/06/17 04:00 99.0 94 20 164/91 98 01/06/17 03:32 98.9 82 20 127/77 95 01/06/17 03:29 Nasal Cannula 2.00 01/06/17 03:17 99.6 85 20 136/75 91 01/06/17 02:00 101.0 01/06/17 01:00 94 15 119/81 98 Nasal Cannula 2 01/05/17 23:00 98.8 96 17 120/70 97 Nasal Cannula 2 I/O 01/05/17 01/05/17 01/05/17 01/06/17 01/06/17 01/06/17 07:00 15:00 23:00 07:00 15:00 23:00 Intake Total 250 ml 1028 ml Balance 250 ml 1028 ml Intake Oral 0 ml IV Total 1028 ml Packed Cells 250 ml # Voids 0 # Bowel Movements 0 1 (Dejuan Hunt MD R1) Result Diagram: 01/06/17 0810 01/06/17 0810 Objective Remarks GENERAL: 56-year-old female lying in bed appearing in no acute distress, however nonverbal and appears poorly nourished. SKIN: Warm and dry. No rash. HEENT: Atraumatic, normocephalic with EOMI. No JVD or LAD appreciated. Mucous membranes dry. CARDIOVASCULAR: Regular rate and rhythm without obvious murmurs, gallops, or rubs. RESPIRATORY: Normal respiratory effort overall with faint clear lung sounds bilaterally. No CRW appreciated. GASTROINTESTINAL: Abdomen soft, non-tender, nondistended with positive bowel sounds. No masses or organomegaly. MUSCULOSKELETAL: No cyanosis or edema. NEURO/PSYCH: Afocal. Awake, alert, and oriented x3. Minimally responsive to questioning. If she does respond, she is very slow to answer and difficult to understand speech. (Dejuan Hunt MD R1) A/P Assessment and Plan 56 year old female with PMH significant for CVA x3, SLE, T2DM, CKD, HTN, hypothyroidism brought to the ED by EMS after her called 911 earlier today due to the patient not acting at her baseline; pt also had a fever of 102F taken axillary per EMS report and was hypotensive down to 70s systolic that is now improved and stable s/p 1L NS bolus en route to the ED and additional 2L NS in the ED. Patient meets criteria for severe sepsis with source presumably a UTI. Discharge Planning asks for hospice consultation with [facility]. (Dejuan Hunt MD R1) Attending Attestation Patient seen and examined. Case reviewed and discussed with the resident team. Agree with plan of care as discussed with me and documented in the resident note. (Danielle Trinidad MD) Problem List: (1) UTI (urinary tract infection) Status: Acute Plan: Afebrile in ED, vitals now stable s/p 2L NS bolus in the ED UA negative for nitrites, negative LE, 10 WBCs, few bacteria Urine culture: Group D enterococcus Received Vancomycin 1gm IV and aztreonam 2gm IV in the ED Continue aztreonam 2gm IV q12h for treatment of UTI and patient has a penicillin allergy Continue with IVF hydration with NS at 165 cc/hr Monitor I/Os Monitor vitals q2h (2) D-dimer, elevated Status: Acute Plan: Patient with elevated d-dimer on admission to 0.97. Wells score of 3. Patient anticoagulated on Coumadin, however subtherapeutic INR CTA: No evidence of PE, bilateral lower lobe segmental consolidating airspace disease. (3) Sepsis Status: Acute Plan: Patient met criteria for severe sepsis Urinary culture: Group D enterococcus Blood cultures: Negative to date does report a cough for about the past 2 weeks that is nonproductive Lungs are clear on exam CXR appears normal without any finding concerning for pneumonia Lactic acid 2.9 on admission, most recently 1.1 Plan as above (4) Anemia Status: Acute Plan: Hgb 7.5 on admission, suspect this is chronic anemia; Hgb 7.9 at time of discharge from most recent hospitalization Hemoccult likely to be positive in light of patient on Coumadin No significant vaginal bleeding since discharge last month INR 1.3, Coumadin initially held for possible bleeding risk, however patient's indicates he would like to proceed with anticoagulation to avoid possible stroke. Medical team thoroughly explained all risks associated with this decision. He voiced verbal understanding and again wishes to proceed with anticoagulation. Type and screen, 2 units PRBCs to be given as Hgb will become hemodiluted with IVF being administered (5) JAMAL (acute kidney injury) Status: Acute Plan: Cr elevated 1.82 on admission, likely secondary to sepsis and hypotension Baseline Cr ~0.8 IVF as above Continue to monitor (6) Anticoagulated on Coumadin Status: Chronic Plan: Trend INR Continue Coumadin 2.5mg po daily as there is no evidence of any acute bleed (7) History of CVA with residual deficit Status: Chronic Plan: Continue Coumadin at 2.5 mg po daily PT Bed rest for now Neuro checks q4h (8) History of adrenal insufficiency Status: Chronic Plan: Continue fludrocortisone 0.1 mg po daily (9) Hypothyroidism Status: Chronic Plan: Continue home Synthroid (10) DM (diabetes mellitus) Status: Chronic Plan: Metformin restarted per patient's wishes despite creatinine increase, contraindications explained however husbands wishes are to continue with metformin Stopped SSI (11) FEN/PPX Status: Acute Plan: Fluids: NS at 110 cc/hr Electrolytes: WNLs, continue to monitor Nutrition: Cleared by speech therapy for mechanical soft diet, orders placed DVT ppx: Coumadin, b/l SCDs (Dejuan Hunt MD R1) Dejuan Hunt MD R1 Jan 06, 2017 22:06 Danielle Trinidad MD Jan 07, 2017 08:11
[2017-01-07] VITALS (8 sets, daily range): BP systolic 128–182; BP diastolic 75–88; PULSE 63–78; RESP 16–20; TEMP 95.6–98.2; O2SAT 95–99
[2017-01-07] MEDS: LEVOTHYROXINE SODIUM 88 MCG TAB PO SCH (04:59)
[2017-01-07] MEDS: SODIUM CHLOR 0.9% 1000 ML INJ 1,000 ML IV SCH ×3 (04:59→20:56)
[2017-01-07] MEDS: AZTREONAM INJ 2,000 MG in SODIUM CHLORIDE 0.9% INJ 100 ML IV SCH (09:36)
[2017-01-07] MEDS: FERROUS SULFATE 300 MG /5ML UDC PO SCH (09:39)
[2017-01-07] MEDS: CITALOPRAM HYDROBROMIDE 40 MG TAB PO SCH (09:39)
[2017-01-07] MEDS: ACETAMINOPHEN/HYDROcodone 325 MG/5 MG TAB PO PRN (09:39)
[2017-01-07] MEDS: FLUDROCORTISONE ACETATE 0.1 MG TAB PO SCH (09:40)
[2017-01-07] MEDS: risperiDONE 1 MG TAB PO SCH (09:40)
[2017-01-07] MEDS: ASPIRIN EC 81 MG TABEC PO SCH (09:40)
[2017-01-07] MEDS: metFORMIN HCL 500 MG TAB PO SCH ×2 (09:40→17:05)
[2017-01-07] MEDS: GABAPENTIN 400 MG CAP PO SCH ×3 (09:40→17:04)
[2017-01-07 13:01] LABS: HEMATOCRIT 30.6 % (35.0-46.0); MEAN CORPUSCULAR HEMOGLOBIN 27.2 PG (27.0-34.0); MEAN CORPUSCULAR HGB CONC 32.7 % (32.0-36.0); PLATELET COUNT 170 TH/MM3 (150-450); RED BLOOD COUNT 3.68 MIL/MM3 (4.00-5.30); RED CELL DISTRIBUTION WIDTH 15.3 % (11.6-17.2); REVIEW FLAG FINAL; WHITE BLOOD COUNT 9.6 TH/MM3 (4.0-11.0)
[2017-01-07 13:21] LABS: BICARBONATE 25.1 MEQ/L (21.0-32.0); POTASSIUM 3.7 MEQ/L (3.5-5.1)
--- NOTE | 2017-01-07 16:58 | HHI.FPPN ---
Subjective Remarks Patient seen and examined this morning. No acute events overnight. BP up to 182/ 88 that appropriately responded to medication. Patient currently lying in bed with minimal interaction with examiners. She does answer questioning with very short 1-2 word sentences. She indicates she is currently not in pain and is feeling "okay." She currently endorses no complaints. Of note, medical team had long discussion with patient's discussing goals of care. reports that ate 100% of breakfast including pancakes, baking, and eggs with multiple cups of coffee. He also reports that she was speaking in full sentences, and "has looked the best she has in many months." When discussing the possibility of discharge to hospice, he states that he would not like to pursue hospice/palliative care consult at this time. He believes that he can take her home and continue care for her. He was agreeable to the plan to transition her to by mouth antibiotics overnight with evaluation for possible discharge tomorrow and further discussion of prognosis. (Dejuan Hunt MD R1) Objective Vitals Vital Signs Date Time Temp Pulse Resp B/P Pulse Ox O2 Delivery O2 Flow Rate FiO2 01/07/17 12:40 97.0 75 18 151/83 98 01/07/17 09:34 96 Nasal Cannula 2.00 01/07/17 08:00 97.5 73 18 182/88 96 01/07/17 03:58 96.1 63 16 138/75 97 01/07/17 00:00 95.6 71 20 128/84 98 01/06/17 19:54 97.2 76 18 103/62 92 01/06/17 17:57 93 Nasal Cannula 2.00 I/O 01/06/17 01/06/17 01/06/17 01/07/17 01/07/17 01/07/17 07:00 15:00 23:00 07:00 15:00 23:00 Intake Total 250 ml 1028 ml 680 ml Balance 250 ml 1028 ml 680 ml Intake Oral 0 ml IV Total 1028 ml 680 ml Packed Cells 250 ml # Voids 0 # Bowel Movements 0 1 1 (Dejuan Hunt MD R1) Result Diagram: 01/07/17 1239 01/07/17 1239 Objective Remarks GENERAL: 56-year-old frail female lying in bed appearing in no acute distress, however nonverbal and appears poorly nourished. SKIN: Warm and dry. No rash. HEENT: Atraumatic, normocephalic with EOMI. No JVD or LAD appreciated. Mucous membranes dry. CARDIOVASCULAR: Regular rate and rhythm without obvious murmurs, gallops, or rubs. RESPIRATORY: Normal respiratory effort overall with faint clear lung sounds bilaterally. No CRW appreciated. GASTROINTESTINAL: Abdomen soft, non-tender, nondistended with positive bowel sounds. No masses or organomegaly. MUSCULOSKELETAL: No cyanosis or edema. NEURO/PSYCH: Afocal. Awake, alert, and oriented x3. Minimally responsive to questioning. If she does respond, she is very slow to answer and difficult to understand speech. (Dejuan Hunt MD R1) A/P Assessment and Plan 56 year old female with PMH significant for CVA x3, SLE, T2DM, CKD, HTN, hypothyroidism brought to the ED by EMS after her called 911 earlier today due to the patient not acting at her baseline; pt also had a fever of 102F taken axillary per EMS report and was hypotensive down to 70s systolic that is now improved and stable s/p 1L NS bolus en route to the ED and additional 2L NS in the ED. Patient meets criteria for severe sepsis with source presumably a UTI. Discharge Planning Patient 7 initially asked for hospice consult. However he reports after seeing the patient this morning talking in full sentences with good by mouth intake ( he reports eating 100% of breakfast with multiple cups of coffee), he currently reports that he does not want to speak with hospice/palliative. At this point he would like to pursue full care and will likely have her discharged home. ( Dejuan Hunt MD R1) Attending Attestation Patient seen and examined. Case reviewed and discussed with the resident team. Agree with plan of care as discussed with me and documented in the resident note. (Danielle Trinidad MD) Problem List: (1) UTI (urinary tract infection) Status: Acute Plan: Afebrile in ED, vitals now stable s/p 2L NS bolus in the ED UA negative for nitrites, negative LE, 10 WBCs, few bacteria Urine culture: Enterococcus faecalis sensitive to nitrofurantoin Received Vancomycin 1gm IV and aztreonam 2gm IV in the ED Stopped aztreonam 2gm IV q12h (01/05-01/07) Started nitrofurantoin 100 mg twice a day (01/07 ), with plans to treat for a total of 7 days as she has had recurrent UTI Decrease IVF hydration with NS at 50 cc/hr to encourage PO intake Monitor I/Os Monitor vitals q2h (2) D-dimer, elevated Status: Acute Plan: Patient with elevated d-dimer on admission to 0.97. Wells score of 3. Patient anticoagulated on Coumadin, however subtherapeutic INR CTA: No evidence of PE, bilateral lower lobe segmental consolidating airspace disease. (3) Sepsis Status: Acute Plan: Patient met criteria for severe sepsis Urinary culture: Group D enterococcus Blood cultures: Negative to date does report a cough for about the past 2 weeks that is nonproductive Lungs are clear on exam CXR appears normal without any finding concerning for pneumonia Lactic acid 2.9 on admission, most recently 1.1 Plan as above (4) Anemia Status: Acute Plan: Hgb 7.5 on admission, suspect this is chronic anemia; Hgb 7.9 at time of discharge from most recent hospitalization Hemoccult likely to be positive in light of patient on Coumadin No significant vaginal bleeding since discharge last month INR 1.3, Coumadin initially held for possible bleeding risk, however patient's indicates he would like to proceed with anticoagulation to avoid possible stroke. Medical team thoroughly explained all risks associated with this decision. He voiced verbal understanding and again wishes to proceed with anticoagulation. Type and screen, 2 units PRBCs to be given as Hgb will become hemodiluted with IVF being administered (5) JAMAL (acute kidney injury) Status: Acute Plan: Cr elevated 1.82 on admission, likely secondary to sepsis and hypotension Baseline Cr ~0.8 IVF as above Continue to monitor (6) Anticoagulated on Coumadin Status: Chronic Plan: Trend INR Continue Coumadin 2.5mg po daily as there is no evidence of any acute bleed (7) History of CVA with residual deficit Status: Chronic Plan: Continue Coumadin at 2.5 mg po daily PT Bed rest for now Neuro checks q4h (8) History of adrenal insufficiency Status: Chronic Plan: Continue fludrocortisone 0.1 mg po daily (9) Hypothyroidism Status: Chronic Plan: Continue home Synthroid (10) DM (diabetes mellitus) Status: Chronic Plan: Metformin restarted per patient's wishes despite creatinine increase, contraindications explained however husbands wishes are to continue with metformin Stopped SSI (11) FEN/PPX Status: Acute Plan: Fluids: NS at 50 cc/hr Electrolytes: WNLs, continue to monitor Nutrition: Cleared by speech therapy for mechanical soft diet, orders placed DVT ppx: Coumadin, b/l SCDs (Dejuan Hunt MD R1) Dejuan Hunt MD R1 Jan 07, 2017 16:58 Danielle Trinidad MD Jan 07, 2017 18:44
[2017-01-07] MEDS: NITROFURANTOIN MONOHYD MACROCR 100 MG CAP PO SCH (17:04)
[2017-01-07] MEDS: WARFARIN SOD 5 MG TAB PO SCH (17:05)
[2017-01-07] MEDS: PRAVASTATIN SOD 80 MG TAB PO SCH (20:51)
[2017-01-08] VITALS (10 sets, daily range): BP systolic 131–187; BP diastolic 65–93; PULSE 62–91; RESP 16–20; TEMP 96.7–98.9; O2SAT 95–100
[2017-01-08] MEDS: LEVOTHYROXINE SODIUM 88 MCG TAB PO SCH (06:19)
[2017-01-08] MEDS: GABAPENTIN 400 MG CAP PO SCH ×3 (08:48→18:29)
[2017-01-08] MEDS: NITROFURANTOIN MONOHYD MACROCR 100 MG CAP PO SCH ×2 (08:48→18:29)
[2017-01-08] MEDS: risperiDONE 1 MG TAB PO SCH (08:48)
[2017-01-08] MEDS: metFORMIN HCL 500 MG TAB PO SCH ×2 (08:48→18:29)
[2017-01-08] MEDS: FERROUS SULFATE 300 MG /5ML UDC PO SCH (08:48)
[2017-01-08] MEDS: FLUDROCORTISONE ACETATE 0.1 MG TAB PO SCH (08:49)
[2017-01-08] MEDS: CITALOPRAM HYDROBROMIDE 40 MG TAB PO SCH (08:49)
[2017-01-08] MEDS: ASPIRIN EC 81 MG TABEC PO SCH (08:49)
[2017-01-08 09:35] LABS: HEMATOCRIT 30.8 % (35.0-46.0); MEAN CELL VOLUME 82.5 FL (80.0-100.0); MEAN CORPUSCULAR HEMOGLOBIN 27.5 PG (27.0-34.0); MEAN CORPUSCULAR HGB CONC 33.3 % (32.0-36.0); PLATELET COUNT 203 TH/MM3 (150-450); RED BLOOD COUNT 3.73 MIL/MM3 (4.00-5.30); RED CELL DISTRIBUTION WIDTH 15.6 % (11.6-17.2); REVIEW FLAG FINAL; WHITE BLOOD COUNT 7.7 TH/MM3 (4.0-11.0)
[2017-01-08 09:46] LABS: APTT (PATIENT) 37.3 SEC (24.3-30.1); INTERNATIONAL NORMALIZED RATIO 1.3 RATIO; PROTHROMBIN TIME - PATIENT 14.4 SEC (9.8-11.6)
[2017-01-08 10:10] LABS: BICARBONATE 23.7 MEQ/L (21.0-32.0)
[2017-01-08 10:35] LABS: POTASSIUM 3.8 MEQ/L (3.5-5.1)
--- NOTE | 2017-01-08 11:11 | HHI.DCPOC ---
Discharge Care Plan Diagnosis: (1) UTI (urinary tract infection) Goals to Promote Your Health * To prevent worsening of your condition and complications * To maintain your health at the optimal level Directions to Meet Your Goals Take your medications as prescribed Follow your dietary instruction Follow activity as directed Keep your appointments as scheduled Take your immunizations and boosters as scheduled If your symptoms worsen call your PCP, if no PCP go to Urgent Care Center or Emergency Room Smoking is Dangerous to Your Health. Avoid second hand smoke Call the 24-hour hour crisis hotline for domestic abuse at Dejuan Hunt MD R1 Jan 08, 2017 11:11
[2017-01-08] MEDS ORDERED: NITR100C4 PO (11:15)
[2017-01-08] MEDS ORDERED: COUM5TAB PO (11:15)
--- NOTE | 2017-01-08 12:17 | HHI.FPPN ---
Subjective Remarks Patient seen and evaluated this morning. No acute events overnight with VSS. Patient's , Nissa, at bedside. The patient, her , and myself had a thorough discussion about her clinical condition and the medical plan going forward. Her states that the patient is "back to 100% and is probably better than she has looked than the last few months." We discussed that her UTI is being appropriately treated by mouth and is stable for possible discharge. While the patient and her were initially evaluated by hospice for placement, currently her and the patient desire to be discharged home. He does not believe that the hospice center or rehabilitation center can offer anything for her care that he cannot provide her at home. We discussed his personal health as well as burnout. He indicated that he agreed mentally, however he has to "make this decision with his heart and cannot come to property economist with hospice care right now." He is agreeable to possible discharge home, but states he will need assistance in transporting her back to the house. CM reports that the transportation can be set up, however the payment will be out of pocket and the patient will have to ambulate from the ambulance which may not be feasible given the patient's current condition. (Dejuan Hunt MD R1) Objective Vitals Vital Signs Date Time Temp Pulse Resp B/P Pulse Ox O2 Delivery O2 Flow Rate FiO2 01/08/17 08:22 98 Nasal Cannula 2.00 01/08/17 08:00 98.9 67 16 148/73 99 01/08/17 07:55 62 01/08/17 07:00 Nasal Cannula 2.00 01/08/17 04:31 98.5 65 20 167/82 96 01/08/17 01:25 98.2 62 18 136/65 95 01/07/17 21:41 99 Nasal Cannula 2.00 01/07/17 20:57 96.3 67 20 156/84 95 01/07/17 19:39 Nasal Cannula 2.00 01/07/17 16:42 98.2 78 18 152/84 98 01/07/17 12:40 97.0 75 18 151/83 98 I/O 01/07/17 01/07/17 01/07/17 01/08/17 01/08/17 01/08/17 07:00 15:00 23:00 07:00 15:00 23:00 Intake Total 680 ml 480 ml Balance 680 ml 480 ml Intake Oral 480 ml IV Total 680 ml # Voids 3 1 3 # Bowel Movements 1 1 1 (Dejuan Hunt MD R1) Result Diagram: 01/08/1791501/08/17915 Objective Remarks GENERAL: 56-year-old frail female lying in bed appearing in no acute distress, however nonverbal and appears poorly nourished. SKIN: Warm and dry. No rash. HEENT: Atraumatic, normocephalic with EOMI. No JVD or LAD appreciated. Mucous membranes dry. CARDIOVASCULAR: Regular rate and rhythm without obvious murmurs, gallops, or rubs. RESPIRATORY: Normal respiratory effort overall with faint clear lung sounds bilaterally. No CRW appreciated. GASTROINTESTINAL: Abdomen soft, non-tender, nondistended with positive bowel sounds. No masses or organomegaly. No suprapubic tenderness. MUSCULOSKELETAL: No cyanosis or edema. NEURO/PSYCH: Afocal. Awake, alert, and oriented x3. Minimally responsive to questioning. If she does respond, she is very slow to answer and difficult to understand speech with one word answers. (Dejuan Hunt MD R1) A/P Assessment and Plan 56 year old female with PMH significant for CVA x3, SLE, T2DM, CKD, HTN, hypothyroidism brought to the ED by EMS after her called 911 earlier today due to the patient not acting at her baseline; pt also had a fever of 102F taken axillary per EMS report and was hypotensive down to 70s systolic that is now improved and stable s/p 1L NS bolus en route to the ED and additional 2L NS in the ED. Patient meets criteria for severe sepsis with source presumably a UTI. Discharge Planning Patient 7 initially asked for hospice consult. However he reports after seeing the patient this morning talking in full sentences with good by mouth intake ( he reports eating 100% of breakfast with multiple cups of coffee), he currently reports that he does not want to speak with hospice/palliative. At this point he would like to pursue full care and will likely have her discharged home. ( Dejuan Hunt MD R1) Attending Attestation Patient seen and examined. Case reviewed and discussed with the resident team. Agree with plan of care as discussed with me and documented in the resident note. also had long discussion with her who has a system of caring for his at home. He has hospital beds and does all her care himself. He goes to work and calls on the phone every hour and goes home if she does not answer. He knows her overall health is in decline. he was offered hospice at home and he has the numbers to call them if he decides to do that. He declines hhc as his 100 lb croatian crenshaw may bite. (Pauly Hemphill MD) Problem List: (1) UTI (urinary tract infection) Status: Acute Plan: Afebrile in ED, vitals now stable s/p 2L NS bolus in the ED UA negative for nitrites, negative LE, 10 WBCs, few bacteria Urine culture: Enterococcus faecalis sensitive to nitrofurantoin Received Vancomycin 1gm IV and aztreonam 2gm IV in the ED Stopped aztreonam 2gm IV q12h (01/05-01/07) Started nitrofurantoin 100 mg twice a day (01/07 ), with plans to treat for a total of 7 days as she has had recurrent UTI Stopped IVF hydration for possible discharge Monitor I/Os Monitor vitals q2h (2) D-dimer, elevated Status: Acute Plan: Patient with elevated d-dimer on admission to 0.97. Wells score of 3. Patient anticoagulated on Coumadin, however subtherapeutic INR CTA: No evidence of PE, bilateral lower lobe segmental consolidating airspace disease. (3) Sepsis Status: Acute Plan: Patient met criteria for severe sepsis Urinary culture: Group D enterococcus Blood cultures: Negative to date does report a cough for about the past 2 weeks that is nonproductive Lungs are clear on exam CXR appears normal without any finding concerning for pneumonia Lactic acid 2.9 on admission, most recently 1.1 Plan as above (4) Anemia Status: Acute Plan: Hgb 7.5 on admission, suspect this is chronic anemia; Hgb 7.9 at time of discharge from most recent hospitalization Hemoccult likely to be positive in light of patient on Coumadin No significant vaginal bleeding since discharge last month INR 1.3, Coumadin initially held for possible bleeding risk, however patient's indicates he would like to proceed with anticoagulation to avoid possible stroke. Medical team thoroughly explained all risks associated with this decision. He voiced verbal understanding and again wishes to proceed with anticoagulation. Type and screen, 2 units PRBCs to be given as Hgb will become hemodiluted with IVF being administered (5) JAMAL (acute kidney injury) Status: Resolved Plan: Cr elevated 1.82 on admission, likely secondary to sepsis and hypotension Baseline Cr ~0.8 IVF as above Continue to monitor (6) Anticoagulated on Coumadin Status: Chronic Plan: Trend INR Continue Coumadin 2.5mg po daily as there is no evidence of any acute bleed (7) History of CVA with residual deficit Status: Chronic Plan: Continue Coumadin at 2.5 mg po daily PT Bed rest for now Neuro checks q4h (8) History of adrenal insufficiency Status: Chronic Plan: Continue fludrocortisone 0.1 mg po daily (9) Hypothyroidism Status: Chronic Plan: Continue home Synthroid (10) DM (diabetes mellitus) Status: Chronic Plan: Metformin restarted per patient's wishes despite creatinine increase, contraindications explained however husbands wishes are to continue with metformin Stopped SSI (11) FEN/PPX Status: Acute Plan: Fluids: NS at 50 cc/hr, discontinued for possible discharge Electrolytes: WNLs, continue to monitor Nutrition: Cleared by speech therapy for mechanical soft diet, orders placed DVT ppx: Coumadin, b/l SCDs (Dejuan Hunt MD R1) Problem List: (1) UTI (urinary tract infection) Status: Acute Plan: Afebrile in ED, vitals now stable s/p 2L NS bolus in the ED UA negative for nitrites, negative LE, 10 WBCs, few bacteria Urine culture: Enterococcus faecalis sensitive to nitrofurantoin Received Vancomycin 1gm IV and aztreonam 2gm IV in the ED Stopped aztreonam 2gm IV q12h (01/05-01/07) Started nitrofurantoin 100 mg twice a day (01/07 ), with plans to treat for a total of 7 days as she has had recurrent UTI Stopped IVF hydration for possible discharge Monitor I/Os Monitor vitals q2h (2) D-dimer, elevated Status: Acute Plan: Patient with elevated d-dimer on admission to 0.97. Wells score of 3. Patient anticoagulated on Coumadin, however subtherapeutic INR CTA: No evidence of PE, bilateral lower lobe segmental consolidating airspace disease. (3) Sepsis Status: Acute Plan: Patient met criteria for severe sepsis Urinary culture: Group D enterococcus Blood cultures: Negative to date does report a cough for about the past 2 weeks that is nonproductive Lungs are clear on exam CXR appears normal without any finding concerning for pneumonia Lactic acid 2.9 on admission, most recently 1.1 Plan as above (4) Anemia Status: Acute Plan: Hgb 7.5 on admission, suspect this is chronic anemia; Hgb 7.9 at time of discharge from most recent hospitalization Hemoccult likely to be positive in light of patient on Coumadin No significant vaginal bleeding since discharge last month INR 1.3, Coumadin initially held for possible bleeding risk, however patient's indicates he would like to proceed with anticoagulation to avoid possible stroke. Medical team thoroughly explained all risks associated with this decision. He voiced verbal understanding and again wishes to proceed with anticoagulation. Type and screen, 2 units PRBCs to be given as Hgb will become hemodiluted with IVF being administered (5) JAMAL (acute kidney injury) Status: Resolved Plan: Cr elevated 1.82 on admission, likely secondary to sepsis and hypotension Baseline Cr ~0.8 IVF as above Continue to monitor (6) Anticoagulated on Coumadin Status: Chronic Plan: Trend INR Continue Coumadin 2.5mg po daily as there is no evidence of any acute bleed (7) History of CVA with residual deficit Status: Chronic Plan: Continue Coumadin at 2.5 mg po daily PT Bed rest for now Neuro checks q4h (8) History of adrenal insufficiency Status: Chronic Plan: Continue fludrocortisone 0.1 mg po daily (9) Hypothyroidism Status: Chronic Plan: Continue home Synthroid (10) DM (diabetes mellitus) Status: Chronic Plan: Metformin restarted per patient's wishes despite creatinine increase, contraindications explained however husbands wishes are to continue with metformin Stopped SSI (11) FEN/PPX Status: Acute Plan: Fluids: NS at 50 cc/hr, discontinued for possible discharge Electrolytes: WNLs, continue to monitor Nutrition: Cleared by speech therapy for mechanical soft diet, orders placed DVT ppx: Coumadin, b/l SCDs (Pauly Hemphill MD) Problem Qualifiers (1) UTI (urinary tract infection): Dejuan Hunt MD R1 Jan 08, 2017 12:17 Pauly Hemphill MD Jan 11, 2017 13:06
[2017-01-08] MEDS: LISINOPRIL 20 MG TAB PO SCH (13:21)
[2017-01-08] MEDS: WARFARIN SOD 5 MG TAB PO SCH (16:45)
[2017-01-08] MEDS: PRAVASTATIN SOD 80 MG TAB PO SCH (20:47)
[2017-01-09 01:47] VITALS: BP 207/113; PULSE 82; RESP 21; TEMP 97.2; O2SAT 100
[2017-01-09 03:16] VITALS: BP 152/86; PULSE 62; RESP 18; TEMP 96.8; O2SAT 100
[2017-01-09] MEDS: LEVOTHYROXINE SODIUM 88 MCG TAB PO SCH (05:11)
[2017-01-09 08:09] VITALS: BP 167/81; PULSE 68; RESP 17; TEMP 96.7; O2SAT 96
[2017-01-09] MEDS: risperiDONE 1 MG TAB PO SCH (09:00)
[2017-01-09] MEDS: metFORMIN HCL 500 MG TAB PO SCH (09:00)
[2017-01-09] MEDS: GABAPENTIN 400 MG CAP PO SCH ×2 (09:00→13:41)
[2017-01-09] MEDS: FERROUS SULFATE 300 MG /5ML UDC PO SCH (09:00)
[2017-01-09] MEDS: FLUDROCORTISONE ACETATE 0.1 MG TAB PO SCH (09:00)
[2017-01-09] MEDS: CITALOPRAM HYDROBROMIDE 40 MG TAB PO SCH (09:00)
[2017-01-09] MEDS: NITROFURANTOIN MONOHYD MACROCR 100 MG CAP PO SCH (09:00)
[2017-01-09] MEDS: ASPIRIN EC 81 MG TABEC PO SCH (09:01)
[2017-01-09] MEDS: LISINOPRIL 20 MG TAB PO SCH (09:01)
[2017-01-09 09:20] VITALS: O2SAT 99
[2017-01-09] MEDS ORDERED: COUM3TAB PO (09:46)
[2017-01-09] MEDS ORDERED: CIPR100T2 PO (09:54)
--- NOTE | 2017-01-09 11:08 | HHI.FPPN ---
Subjective Remarks Resting in bed this morning. No complaints. Eating and drinking at her baseline. No bladder pain or dysuria. No fevers overnight. at bedside ( also her caregiver) states she is back to normal. No altered mental status. She really wants to go home today. Discussed extensively plans for taking care of her at home. They refuse home healthcare for the time being. They are considering hospice in the near future if she does not markedly improve. Also discussed starting a long-term antibiotic for UTI prophylaxis as she has been hospitalized for UTI's 5 times just this year. (Shan Quick MD R2) Objective Vitals Vital Signs Date Time Temp Pulse Resp B/P Pulse Ox O2 Delivery O2 Flow Rate FiO2 01/09/17 08:09 96.7 68 17 167/81 96 01/09/17 03:16 96.8 62 18 152/86 100 01/09/17 01:47 97.2 82 21 207/113 100 01/08/17 22:02 96.7 66 18 131/88 100 01/08/17 21:13 98 Nasal Cannula 2.00 01/08/17 19:00 Nasal Cannula 2.00 01/08/17 16:00 97.6 91 18 145/78 95 01/08/17 12:00 97.0 86 16 187/93 98 I/O 01/08/17 01/08/17 01/08/17 01/09/17 01/09/17 01/09/17 07:00 15:00 23:00 07:00 15:00 23:00 Intake Total 480 ml Balance 480 ml Intake Oral 480 ml # Voids 3 4 2 # Bowel Movements 1 1 1 (Shan Quick MD R2) Result Diagram: 01/08/1716 01/08/1716 Objective Remarks GENERAL: Lying in bed, no distress, appears weak and pale SKIN: No rashes HEENT: Atraumatic, normocephalic with EOMI. No JVD or LAD. Mucous membranes moist. CARDIOVASCULAR: Regular rate and rhythm without obvious murmurs, gallops, or rubs. RESPIRATORY: Normal respiratory effort overall with faint clear lung sounds bilaterally. No CRW appreciated. GASTROINTESTINAL: Abdomen soft, non-tender, nondistended with positive bowel sounds. No masses or organomegaly. No suprapubic tenderness. MUSCULOSKELETAL: No cyanosis or edema. NEURO/PSYCH: Afocal. Awake, alert, and oriented x3. Answering questions appropriately. Oriented to person, place, situation. (Shan Quick MD R2) A/P Assessment and Plan 56 year old female with PMH significant for CVA x3, SLE, T2DM, CKD, HTN, hypothyroidism brought to the ED by EMS after her called 911 due to the patient not acting at her baseline; pt also had a fever of 102F taken axillary per EMS report and was hypotensive down to 70s systolic. Patient meets criteria for severe sepsis with source presumably a UTI. Now sepsis resolved and much improved, mental status back to baseline. Planning for discharge today. Discharge Planning Discussed plans extensively with patient and . Initially they were amenable to hospice consult, but currently would like to take her home as she is back to her baseline and doing very well. Discussed benefits of hospice and palliative care. and patient will consider hospice if she does not stay improved for a significant amount of time. Also discussed starting a prophylactic antibiotic against UTI's as she has been hospitalized 5 times in the past year for UTI's. Discussed risks of prophylactic antibiotics especially regarding antibiotic resistance, and they would like to proceed. They decline home health care at this time. (Shan Quick MD R2) Attending Attestation Patient seen and examined. Case reviewed and discussed with the resident team. Agree with plan of care as discussed with me and documented in the resident note. her is ready to go home. Ms Velasquez wants to go home. She has been to SNFs and does not like them compared to her home (Pauly Hemphill MD) Problem List: (1) UTI (urinary tract infection) Status: Acute Plan: Afebrile, no leukocytosis, maintaining blood pressures, vitals stable, sepsis resolved. No dysuria or bladder pain. UA negative for nitrites, negative LE, 10 WBCs, few bacteria Urine culture: Enterococcus faecalis sensitive to nitrofurantoin Received Vancomycin 1gm IV and aztreonam 2gm IV in the ED Stopped aztreonam 2gm IV q12h (01/05-01/07) Started nitrofurantoin 100 mg twice a day (01/07 ), with plans to treat for a total of 7 days as she has had recurrent UTI Will complete nitrofurantoin course and then start Ciprofloxacin 125 mg daily for prophylaxis against recurrent UTI's. (2) Anemia Status: Acute Plan: Hgb 7.5 on admission; on Coumadin therapy and has history of recurrent vaginal bleeding. Workup for vaginal bleeding was essentially negative. No significant vaginal bleeding since discharge last month INR 1.3, Coumadin initially held for possible bleeding risk, however patient's indicates he would like to proceed with anticoagulation to avoid possible stroke. Medical team thoroughly explained all risks associated with this decision. He voiced verbal understanding and again wishes to proceed with anticoagulation. Type and screen, 2 units PRBCs given Will be discharged on 3 mg Coumadin with INR check in 2 to 3 days. (3) JAMAL (acute kidney injury) Status: Resolved Plan: Cr elevated 1.82 on admission, likely secondary to sepsis and hypotension. Creatinine now normal. - Encourage good PO hydration (4) Anticoagulated on Coumadin Status: Chronic Plan: INR currently subtherapeutic Continue Coumadin 3 mg po daily INR in 2 to 3 days (5) Hypothyroidism Status: Chronic Plan: Continue home Synthroid (6) DM (diabetes mellitus) Status: Chronic Plan: Continue Metformin (7) FEN/PPX Status: Acute Plan: Fluids: PO Fluids Nutrition: Cleared by speech therapy for mechanical soft diet, orders placed DVT ppx: Coumadin, b/l SCDs (Shan Quick MD R2) Problem Qualifiers (1) UTI (urinary tract infection): Shan Quick MD R2 Jan 09, 2017 11:08 Pauly Hemphill MD Jan 11, 2017 13:08
--- NOTE | 2017-01-09 11:54 | HHI.DS ---
Discharge Summary Admission Date Jan 05, 2017 at 19:52 Discharge Date: Jan 09, 2017 Admitting Diagnosis Sepsis, UTI, Anemia. (1) UTI (urinary tract infection) Diagnosis: Principal Plan: Afebrile, no leukocytosis, maintaining blood pressures, vitals stable, sepsis resolved. No dysuria or bladder pain. UA negative for nitrites, negative LE, 10 WBCs, few bacteria Urine culture: Enterococcus faecalis sensitive to nitrofurantoin Received Vancomycin 1gm IV and aztreonam 2gm IV in the ED Stopped aztreonam 2gm IV q12h (01/05-01/07) Started nitrofurantoin 100 mg twice a day (01/07 ), with plans to treat for a total of 7 days as she has had recurrent UTI Will complete nitrofurantoin course and then start Ciprofloxacin 125 mg daily for prophylaxis against recurrent UTI's. (2) Anemia Diagnosis: Principal Plan: Hgb 7.5 on admission; on Coumadin therapy and has history of recurrent vaginal bleeding. Workup for vaginal bleeding was essentially negative. No significant vaginal bleeding since discharge last month INR 1.3, Coumadin initially held for possible bleeding risk, however patient's indicates he would like to proceed with anticoagulation to avoid possible stroke. Medical team thoroughly explained all risks associated with this decision. He voiced verbal understanding and again wishes to proceed with anticoagulation. Type and screen, 2 units PRBCs given Will be discharged on 3 mg Coumadin with INR check in 2 to 3 days. (3) JAMAL (acute kidney injury) Diagnosis: Principal Plan: Cr elevated 1.82 on admission, likely secondary to sepsis and hypotension. Creatinine now normal. - Encourage good PO hydration (4) Anticoagulated on Coumadin Diagnosis: Secondary Plan: INR currently subtherapeutic Continue Coumadin 3 mg po daily INR in 2 to 3 days (5) Hypothyroidism Diagnosis: Secondary Plan: Continue home Synthroid (6) DM (diabetes mellitus) Diagnosis: Secondary Plan: Continue Metformin (7) FEN/PPX Diagnosis: Secondary Plan: Fluids: PO Fluids Nutrition: Cleared by speech therapy for mechanical soft diet, orders placed DVT ppx: Coumadin, b/l SCDs Consultants none Procedures none Brief History Patient is a 56 year old female with PMH significant for CVA x3, SLE, T2DM, CKD , HTN, hypothyroidism brought to the ED by EMS after her called 911 earlier today due to the patient not acting at her baseline. Per EMS report, patient also had a fever of 102F taken axillary and hypotension as low as 70s systolic. Patient received 1L bolus en route to the ED. History provided by the patients who is her materials handler. Patient is able to answer basic questions appropriately. She denies any chest pain, difficulty breathing or SOB , headache, feeling feverish, or abdominal pain. states the patient at baseline is alert, however not always oriented to place or time. She is usually always oriented to person. states the patient at baseline has poor PO intake of solids and liquids. He states there was a 12 hour period from late last night to sometime early this afternoon where she did not have any urine production. He does not think the patient has had any fevers, chills, or night sweats over the past couple weeks. He does report the patient having a cough over the last couple weeks that has been nonproductive. He denies any report or noticing any chest pain or SOB from the patient. He denies any significant vaginal bleeding from the patient as well since being discharged from her previous hospital stay on 12/01. The patient was admitted to the hospital here from 11/19-12/01 due to GI bleed and vaginal bleeding secondary to supratherapeutic INR of 3.4 on admission. Patient had a colonoscopy on 11/30 with findings of small internal hemorrhoids, external hemorrhoids, recommending yearly rectal exams and repeat colonoscopy in one year. A TVUS from 10/23/16 performed after the patient presented on 10/23 with vaginal bleeding showed multiple uterine fibroids and 3 mm endometrial stripe; patient completed 14 days of provera 10mg po daily per polisher hand recommendations. CBC/BMP: 01/08/17 0916 01/08/17 0916 Significant Findings Laboratory Tests Test 01/07/17 01/08/17 01/09/17 12:39 09:16 08:31 Red Blood Count 3.68 MIL/MM3 3.73 MIL/MM3 (4.00-5.30) (4.00-5.30) Hemoglobin 10.0 GM/DL 10.3 GM/DL (11.6-15.3) (11.6-15.3) Hematocrit 30.6 % 30.8 % (35.0-46.0) (35.0-46.0) Blood Urea Nitrogen 33 MG/DL (7-18) 25 MG/DL (7-18) Estimat Glomerular Filtration 65 ML/MIN (>89) 85 ML/MIN (>89) Rate Calcium Level 8.4 MG/DL 8.1 MG/DL (8.5-10.1) (8.5-10.1) Prothrombin Time 14.4 SEC (9.8-11.6) Activated Partial 37.3 SEC Thromboplast Time (24.3-30.1) Erythrocyte Sedimentation Rate 54 mm/hr (0-30) PE at Discharge GENERAL: Lying in bed, no distress, appears weak and pale SKIN: No rashes HEENT: Atraumatic, normocephalic with EOMI. No JVD or LAD. Mucous membranes moist. CARDIOVASCULAR: Regular rate and rhythm without obvious murmurs, gallops, or rubs. RESPIRATORY: Normal respiratory effort overall with faint clear lung sounds bilaterally. No CRW appreciated. GASTROINTESTINAL: Abdomen soft, non-tender, nondistended with positive bowel sounds. No masses or organomegaly. No suprapubic tenderness. MUSCULOSKELETAL: No cyanosis or edema. NEURO/PSYCH: Afocal. Awake, alert, and oriented x3. Answering questions appropriately. Oriented to person, place, situation. Hospital Course 56 year old female with a history of recurrent CVA's, maintained on anticoagulation therapy, and recurrent UTI's (five hospitalizations in the past year for UTI's), presented with altered mental status, severe sepsis, and UTI. She was treated with IV hydration and IV antibiotics. Her symptoms quickly improved. She was switched to PO nitrofurantoin for sensitive enterococcus fecaelis in urine. Blood cultures are negative. Initially and patient wanted a hospice consult due to recent frequent hospitalizations and overall declining clinical status, but they changed their mind as she is back at her baseline functioning and normal mental status. They declined home health care for the time being. Instead, they would like to see how she does over the next few weeks before deciding definitively on hospice. We discussed the purposes of hospice and palliative care and their benefits. Because she has frequent UTI's, it was agreed jointly that she could benefit from Ciprofloxacin low dose given long-term for UTI prophylaxis. Discussed risks, including QT prolongation and antibiotic resistant organisms. Her INR was also subtherapeutic. Coumadin was increased to 3 mg with repeat INR in 2 to 3 days on discharge. She has follow up with me (her PCP) scheduled. Pt Condition on Discharge: Stable Discharge Disposition: Discharge Home Discharge Instructions DIET: Follow Instructions for: As Tolerated, No Restrictions Speech Therapy-Diet Recommends: Mechanical Soft, Chopped Meat w/Gravy Activities you can perform: See Additionl Instruction Other Activity Instructions: Requires assistance during ambulation Fall prevention precautions Follow up Referrals: PCP Follow-up - 1 Week New Orders: PT/INR - 2-3 Days New Medications: Ciprofloxacin (Ciprofloxacin) 100 Mg Tab 100 MG PO DAILY To be started AFTER macrobid completed, start on 01/17/17. To be taken indefinitely for prophylaxis against frequent UTI's. Infection #30 Ref 0 TAB Warfarin (Coumadin) 3 Mg Tab 3 MG PO DAILY Prevent Blood Clot #30 Ref 0 TAB Nitrofurantoin Monohydrate Macrocrystals (Nitrofurantoin Monohydrate Macrocrystals) 100 Mg Cap 100 MG PO BIDPC #7 CAP Continued Medications: Amlodipine (Norvasc) 5 Mg Tab 5 MG PO DAILY #[address] (Aspirin Adult Low Strength) 81 Mg Tabdr 81 MG PO DAILY TAB Cholecalciferol (Vitamin D3) 50,000 Unit Cap 55367 UNITS PO WEEKLY Nutritional Supplement #1 Ref 0 BOTTLE Citalopram (Citalopram) 40 Mg Tab 40 MG PO DAILY hold this medication until course of antibiotics has been completed Control Depression #90 Ref [address] (Ferrous Sulfate DR) 325 Mg Tabdr 325 MG PO BID #60 Fludrocortisone (Fludrocortisone) 0.1 Mg Tab 0.1 MG PO DAILY #30 Ref 6 TAB Gabapentin (Gabapentin) 800 Mg Tab 800 MG PO TID #270 Ref 0 TAB Hydrocodone-Acetaminophen (Hydrocodone-Acetaminophen) 10-325 mg Tab 1 TAB PO Q6H PRN PAIN #120 Ref 0 TAB Levothyroxine (Levothyroxine) 88 Mcg Tab 88 MCG PO DAILY Thyroid #90 Ref 0 TAB Lisinopril (Lisinopril) 40 Mg Tab 40 MG PO DAILY Blood Pressure Management #30 Ref 6 TAB Metformin (Metformin) 1,000 Mg Tab 1000 MG PO BIDPC With meals Blood Sugar Management #60 Ref 6 TAB Risperidone (Risperdal) 2 Mg Tab 2 MG PO DAILY #30 Ref 0 TAB Sennosides-Docusate Sodium (Senna Plus 8.6-50 mg) 1 Tab Tab 2 TAB PO BID PRN CONSTIPATION #60 TAB Simvastatin (Simvastatin) 40 Mg Tab 40 MG PO HS Cholesterol Management #90 Ref 6 TAB Tramadol (Tramadol) 50 Mg Tab 50 MG PO Q6H PRN PAIN #120 Ref 0 TAB Discontinued Medications: Warfarin (Warfarin) 4 Mg Tab 4 MG PO DAILY Blood Clot Prevention #30 Ref 6 TAB Shan Quick MD R2 Jan 09, 2017 11:54
[2017-01-09 12:00] VITALS: BP 139/88; PULSE 76; RESP 18; TEMP 97.7; O2SAT 98
[2017-01-12 12:15] LABS: C3 SERUM 126 mg/dL (()); C4 SERUM 38 mg/dL (ADULTS: 16-47); RHEUMATOID FACTOR 10 IU/mL (<14); SCL-70 AB <1.0 NEG AI (<1.0 NEGATIVE)
[2017-01-13 03:51] LABS: ACTIN AB IGG <20 U (())
[2017-01-18] MEDS ORDERED: COUM4TAB PO (17:55)
[2017-01-24] MEDS ORDERED: HYDR-3583 PO (13:33)
[2017-01-24] MEDS ORDERED: TRAM50TA PO (13:33)
[2017-01-24] MEDS ORDERED: CIPR100T2 PO (13:48)
[2017-01-24] MEDS ORDERED: CHOL1CAP34 PO (13:51)
[2017-01-24] MEDS ORDERED: FERR300S PO (13:51)
[2017-01-24] MEDS ORDERED: MACR100C2 PO (14:14)
[2017-01-24] MEDS ORDERED: MULT-65 PO (15:00)
[2017-01-27] MEDS ORDERED: RISP2TAB37 PO (13:35)
== END 2017-01-09 15:18 | disposition home or self-care (01) | DRG 872 ==
LOC: NEPE 17:04 → NEDA 19:52 → NEDH 23:45 → N05B 01-06 02:21
PROVIDERS: ADMIT Family Medicine; ATTEND Family Medicine
PROC: 30233N1 Transfusion of Nonautologous Red Blood Cells into Peripheral Vein, Percutaneous Approach (ICD-10-PCS; principal; 2017-01-05)
DX: A41.9 Sepsis, unspecified organism (principal); N39.0 Urinary tract infection, site not specified; E11.22 Type 2 diabetes mellitus with diabetic chronic kidney disease; M32.9 Systemic lupus erythematosus, unspecified; I95.9 Hypotension, unspecified; N17.9 Acute kidney failure, unspecified; F03.90 Unspecified dementia, unspecified severity, without behavioral disturbance, psychotic disturbance, mood disturbance, and anxiety; N18.3 Chronic kidney disease, stage 3 (moderate); E27.40 Unspecified adrenocortical insufficiency; E55.9 Vitamin D deficiency, unspecified; F32.9 Major depressive disorder, single episode, unspecified; F41.9 Anxiety disorder, unspecified; J45.909 Unspecified asthma, uncomplicated; N93.9 Abnormal uterine and vaginal bleeding, unspecified; Z86.73 Personal history of transient ischemic attack (TIA), and cerebral infarction without residual deficits; Z79.01 Long term (current) use of anticoagulants; M19.90 Unspecified osteoarthritis, unspecified site; E78.00 Pure hypercholesterolemia, unspecified; K44.9 Diaphragmatic hernia without obstruction or gangrene; G47.30 Sleep apnea, unspecified; Z79.84 Long term (current) use of oral hypoglycemic drugs; E03.9 Hypothyroidism, unspecified; Z88.0 Allergy status to penicillin; D64.9 Anemia, unspecified; K64.8 Other hemorrhoids; K64.4 Residual hemorrhoidal skin tags; D25.9 Leiomyoma of uterus, unspecified; E78.5 Hyperlipidemia, unspecified; Z66 Do not resuscitate; R65.20 Severe sepsis without septic shock; I12.9 Hypertensive chronic kidney disease with stage 1 through stage 4 chronic kidney disease, or unspecified chronic kidney disease; R13.10 Dysphagia, unspecified; B95.2 Enterococcus as the cause of diseases classified elsewhere; Z87.440 Personal history of urinary (tract) infections
CPT/HCPCS: 36430; 71010; 71275; 80048; 80053; 81001; 82550; 82552; 82948; 83516; 83520; 83605; 83690; 83735; 84100; 84484; 85025; 85027; 85379; 85610; 85652; 85730; 86038; 86160; 86225; 86235; 86255; 86431; 86850; 86900; 86901; 86920; 87040; 87077; 87086; 87186; 93005; 96361; 96374; J1650; J1940; J3370; J7030; J7050; P9016; P9612; Q9967

== ENCOUNTER 2017-02-03 11:21 | Inpatient (IN) | payer OTHER ==
[2017-02-03] VITALS (11 sets, daily range): BP systolic 80–132; BP diastolic 55–83; PULSE 68–87; RESP 16–20; TEMP 97.4–99.3; O2SAT 92–99
[~2017-02-03] VITALS: Ht 170.2 cm; Wt 75.6 kg
[~2017-02-03 11:21] MED LIST changes: -ASPI1TAB69 PO; +ASPI1TAB91 PO; +CHOL1CAP34 PO; -COUM3TAB PO; +COUM4TAB PO; -DRIS50002 PO; +FERR300S PO; -FERR325T PO; -FLUD.1 PO; +MACR100C2 PO; -MEDR10TA7 PO; +MULT-65 PO; -SENN1TAB PO; -WARF-20 PO
[2017-02-03] MEDS ORDERED: SODIUM CHLOR 0.9% 1000 ML INJ 1,000 ML IV SCH (11:42)
[2017-02-03] MEDS ORDERED: SODIUM CHLORIDE 0.9% FLUSH 5 ML FLUSH IV FLUSH PRN (11:45)
--- NOTE | 2017-02-03 12:21 | PD ---
HPI Chief Complaint: Abnormal Results Time Seen by Provider: 11:37 Travel History International Travel<30 days: No Contact w/Intl Traveler<30days: No Traveled to known affect area: No History of Present Illness HPI 56-year-old female came to the emergency room with history of lethargy, hypotension since yesterday. Her noticed the lethargy and says that in the past whenever this has happened she ended up having UTI. Patient was taken by him to her primary care doctor. At the doctor's office her blood pressure was very low. They asked the to bring the patient over to the emergency room. Here patient is lethargic, eyes open but not really talking. Skin is giving all the history. Blood pressure was 87/55. Patient blood sugar was 99. She is a diabetic. Rectal temperature was 99.1. says that she is on Coumadin for multiple strokes in the past. Her INR that was done 4 days ago was 1.7. He found out about the blood test result yesterday and hence no dose adjustment has been done yet. [facility] Past Medical History Narrative Medical List of her past medical, surgical, social and family history is reviewed from the nursing note. Hx Anticoagulant Therapy: Yes (WARFARIN ) Arthritis: Yes Asthma: Yes Autoimmune Disease: Yes (LUPUS) Blood Disorders: No Anxiety: Yes Depression: Yes Heart Rhythm Problems: No Cancer: No Cardiovascular Problems: Yes (HTN) High Cholesterol: Yes Chemotherapy: No Chest Pain: No Congestive Heart Failure: No COPD: No Cerebrovascular Accident: Yes Dementia: Yes Diabetes: Yes Patient Takes Glucophage: Yes Diminished Hearing: No Endocrine: Yes (DM II) Gastrointestinal Disorders: Yes Glaucoma: No Genitourinary: No Headaches: Yes Hepatitis: No Hiatal Hernia: Yes Heparin Induced Thrombocytopen: No Hypertension: Yes Immune Disorder: Yes (LUPUS) Implanted Vascular Access Dvce: Yes Kidney Stones: No Musculoskeletal: Yes (Arthritis) Neurologic: Yes (CVA November 2012) Psychiatric: Yes (Depression) Reproductive: Yes (ovary removed) Respiratory: Yes (SLEEP APNEA) Immunizations Current: Yes Migraines: No Myocardial Infarction: No Radiation Therapy: No Renal Failure: No Seizures: No Sickle Cell Disease: No Sleep Apnea: Yes Thyroid Disease: Yes (hypothyroidism) Ulcer: No Tetanus Vaccination: < 5 Years Influenza Vaccination: Yes Menopausal: Yes : 3 Para: 3 Ovarian Cysts: Yes (R) Tubal Ligation: Yes (R ) Past Surgical History Abdominal Surgery: Yes (cholycystectomy) Appendectomy: No Cardiac Surgery: No Cholecystectomy: Yes Ear Surgery: No Endocrine Surgery: No Eye Surgery: No Genitourinary Surgery: No Gynecologic Surgery: Yes (Ovary removed ) Neurologic Surgery: Yes (Dementia, TIA, CVA) Oral Surgery: No Thoracic Surgery: No Other Surgery: Yes (GALL BLADDER AND OVARY ) Social History Alcohol Use: No (pt denies) Tobacco Use: No Substance Use: No (pt denies) Allergies-Medications (Allergen,Severity, Reaction): Coded Allergies: Penicillin (Verified Allergy, Severe, Rash, 02/03/17) Comments List of her allergies reviewed from the nursing note. Reported Meds & Prescriptions Reported Meds & Active Scripts Active Risperdal (Risperidone) 2 Mg Tab 2 Mg PO HS Ferrous Sulfate Liq (Ferrous Sulfate) 300 Mg/5 Ml Soln 300 Mg PO BID Vitamin D3 (Cholecalciferol) 50,000 Unit Cap 50,000 Units PO WEEKLY Tramadol (Tramadol HCl) 50 Mg Tab 50 Mg PO Q6H PRN Hydrocodone-Acetaminophen 10-325 mg Tab 1 Tab PO Q6H PRN Coumadin (Warfarin) 4 Mg Tab 4 Mg PO DAILY Levothyroxine (Levothyroxine Sodium) 88 Mcg Tab 88 Mcg PO DAILY Lisinopril 40 Mg Tab 40 Mg PO DAILY Metformin (Metformin HCl) 1,000 Mg Tab 1,000 Mg PO BIDPC With meals Simvastatin 40 Mg Tab 40 Mg PO HS Citalopram (Citalopram Hydrobromide) 40 Mg Tab 40 Mg PO DAILY hold this medication until course of antibiotics has been completed Gabapentin 800 Mg Tab 800 Mg PO TID Reported Multi-Vitamin Daily (Multiple Vitamin) 1 Tab Tab 1 Tab PO DAILY Aspirin Adult Low Strength (Aspirin) 81 Mg Tabdr 81 Mg PO DAILY Narrative Medication List of her home medications reviewed from the nursing note. Review of Systems Except as stated in HPI: all other systems reviewed are Neg Physical Exam Narrative GENERAL: Lethargic, eyes open, nonverbal, moderate distress SKIN: Focused skin assessment warm/dry. Pale HEAD: Atraumatic. Normocephalic. EYES: Pupils equal and round. No scleral icterus. No injection or drainage. ENT: No nasal bleeding or discharge. Dry lips and mucous membranes NECK: Trachea midline. No JVD. CARDIOVASCULAR: Regular rate and rhythm. No murmur appreciated. RESPIRATORY: No accessory muscle use. Clear to auscultation. Breath sounds equal bilaterally. GASTROINTESTINAL: Abdomen soft, non-tender, nondistended. Hepatic and splenic margins not palpable. MUSCULOSKELETAL: No obvious deformities. No clubbing. No cyanosis. No edema. NEUROLOGICAL: GCS of 10. No obvious cranial nerve deficits. Motor grossly within normal limits. Nonverbal PSYCHIATRIC: Unable to assess Data Data Last Documented VS Vital Signs Date Time Temp Pulse Resp B/P Pulse Ox O2 Delivery O2 Flow Rate FiO2 02/03/17 13:29 97.4 87 18 121/82 99 Room Air Orders Ammonia (02/03/17 11:42) Complete Blood Count With Diff (02/03/17 11:42) Comprehensive Metabolic Panel (02/03/17 11:42) Creatine Kinase (Cpk) (02/03/17 11:42) Prothrombin Time / Inr (Pt) (02/03/17 11:42) Troponin I (02/03/17 11:42) Thyroid Stimulating Hormone (02/03/17 11:42) Urinalysis - C+S If Indicated (02/03/17 11:42) Lactic Acid Sepsis Protocol (02/03/17 11:42) Blood Culture (02/03/17 11:42) Chest, Single Ap (02/03/17 11:42) Ct Brain W/O Iv Contrast(Rout) (02/03/17 11:42) Blood Glucose (02/03/17 11:42) Ecg Monitoring (02/03/17 11:42) Iv Access Insert/Monitor (02/03/17 11:42) Oximetry (02/03/17 11:42) Sodium Chloride 0.9% Flush (Ns Flush) (02/03/17 11:45) Sodium Chlor 0.9% 1000 Ml Inj (Ns 1000 M (02/03/17 11:42) Drug Screen, Random Urine (02/03/17 11:42) Alcohol (Ethanol) (02/03/17 11:42) Urinary Catheter Insert/Apply (02/03/17 11:42) Sodium Chlor 0.9% 1000 Ml Inj (Ns 1000 M (02/03/17 12:30) Urine Culture (02/03/17 12:00) Sodium Chlor 0.9% 1000 Ml Inj (Ns 1000 M (02/03/17 13:00) Piperacil-Tazo 4.5 Gm Premix (Zosyn 4.5 (02/03/17 13:00) Vancomycin Inj (Vancomycin Inj) (02/03/17 13:00) Admit Order (Ed Use Only) (02/03/17 13:44) Labs Laboratory Tests Test 02/03/17 12:00 White Blood Count 8.0 TH/MM3 Red Blood Count 4.02 MIL/MM3 Hemoglobin 10.8 GM/DL Hematocrit 33.9 % Mean Corpuscular Volume 84.2 FL Mean Corpuscular Hemoglobin 26.8 PG Mean Corpuscular Hemoglobin 31.8 % Concent Red Cell Distribution Width 15.7 % Platelet Count 201 TH/MM3 Mean Platelet Volume 9.4 FL Neutrophils (%) (Auto) 57.4 % Lymphocytes (%) (Auto) 29.7 % Monocytes (%) (Auto) 8.9 % Eosinophils (%) (Auto) 3.4 % Basophils (%) (Auto) 0.6 % Neutrophils # (Auto) 4.6 TH/MM3 Lymphocytes # (Auto) 2.4 TH/MM3 Monocytes # (Auto) 0.7 TH/MM3 Eosinophils # (Auto) 0.3 TH/MM3 Basophils # (Auto) 0.0 TH/MM3 CBC Comment DIFF FINAL Differential Comment Prothrombin Time 19.8 SEC Prothromb Time International 1.7 RATIO Ratio Urine Color DARK-YELLOW Urine Turbidity CLOUDY Urine pH 5.5 Urine Specific Bandon 1.018 Urine Protein TRACE mg/dL Urine Glucose (UA) NEG mg/dL Urine Ketones NEG mg/dL Urine Occult Blood NEG Urine Nitrite NEG Urine Bilirubin NEG Urine Urobilinogen LESS THAN 2.0 MG/DL Urine Leukocyte Esterase SMALL Urine RBC 9 /hpf Urine WBC 6 /hpf Urine Squamous Epithelial 24 /hpf Cells Urine Bacteria MANY /hpf Urine Hyaline Casts 30 /lpf Urine Mucus MOD /lpf Microscopic Urinalysis Comment CATH-CULTURE IND Sodium Level 138 MEQ/L Potassium Level 4.9 MEQ/L Chloride Level 104 MEQ/L Carbon Dioxide Level 25.6 MEQ/L Anion Gap 8 MEQ/L Blood Urea Nitrogen 35 MG/DL Creatinine 1.60 MG/DL Estimat Glomerular Filtration 33 ML/MIN Rate Random Glucose 80 MG/DL Lactic Acid Level 3.1 mmol/L Calcium Level 9.3 MG/DL Total Bilirubin 0.2 MG/DL Aspartate Amino Transf 11 U/L (AST/SGOT) Alanine Aminotransferase 9 U/L (ALT/SGPT) Alkaline Phosphatase 78 U/L Ammonia 34 MCMOL/L Total Creatine Kinase 30 U/L Troponin I LESS THAN 0.02 NG/ML Total Protein 6.5 GM/DL Albumin 2.8 GM/DL Thyroid Stimulating Hormone 0.234 uIU/ML 3rd Gen Urine Opiates Screen NEG Urine Barbiturates Screen NEG Urine Amphetamines Screen NEG Urine Benzodiazepines Screen NEG Urine Cocaine Screen NEG Urine Cannabinoids Screen POS Ethyl Alcohol Level LESS THAN 3 MG/DL MDM Medical Decision Making Medical Screen Exam Complete: Yes Emergency Medical Condition: Yes Medical Record Reviewed: Yes Differential Diagnosis UTI, sepsis, electrolyte abnormality, dehydration, intracranial hemorrhage Narrative Course 12:20 PM awaiting for the blood test result and the CAT scan to be done and resulted. Patient is getting IV fluid as per the sepsis protocol. 1:17 PM the test results of back and suggestive of sepsis. Lactic acid is elevated. Patient does have a UTI. Antibiotic has been started as per sepsis protocol. Awaiting for the admitting team to call for admission. Critical Care Narrative Aggregate critical care time was 45 minutes. Time to perform other separately billable procedures was not included in the critical care time. My time did not include minutes spent treating any other patients simultaneously or on activities that did not directly contribute to the patient's treatment. The services I provided to this patient were to treat and/or prevent clinically significant deterioration that could result in: Altered mental status, sepsis, UTI, sepsis protocol I provided critical care services requiring my management, as noted below: Chart data review, documentation time, medication orders and management, vital sign assessments/reviewing monitor data, ordering and reviewing lab tests, ordering and interpreting/reviewing x-rays and diagnostic studies, care of the patient and discussion of the patient with the admitting physicians. Procedures EKG Prior to Arrival: No Diagnosis Primary Impression: Sepsis Qualified Code: A41.9 - Sepsis, due to unspecified organism Additional Impressions: Recurrent UTI Altered mental status Qualified Code: R41.82 - Altered mental status, unspecified altered mental status type Admitting Information Admitting Physician Requests: Admit Scripts Risperidone (Risperdal)2 Mg Tab2 Mg PO HS #30 TAB Ref 0 Prov:Alexandra Goa MD R2 02/03/17 Evangelist Williamson MD Feb 03, 2017 12:21
[2017-02-03 12:27] LABS: AUTOMATED NEUTROPHIL # 4.6 TH/MM3 (1.8-7.7); BASOPHIL % 0.6 % (0.0-2.0); EOSINOPHIL # 0.3 TH/MM3 (0-0.4); EOSINOPHIL % 3.4 % (0.0-4.0); HEMATOCRIT 33.9 % (35.0-46.0); HEMO FLAGS DIFF FINAL; LYMPH % 29.7 % (9.0-44.0); LYMPHOCYTE # 2.4 TH/MM3 (1.0-4.8); MEAN CELL VOLUME 84.2 FL (80.0-100.0); MEAN CORPUSCULAR HEMOGLOBIN 26.8 PG (27.0-34.0); MEAN CORPUSCULAR HGB CONC 31.8 % (32.0-36.0); MONO % 8.9 % (0.0-8.0); NEUT % 57.4 % (16.0-70.0); PLATELET COUNT 201 TH/MM3 (150-450); RED BLOOD COUNT 4.02 MIL/MM3 (4.00-5.30); RED CELL DISTRIBUTION WIDTH 15.7 % (11.6-17.2)
[2017-02-03] MEDS ORDERED: SODIUM CHLOR 0.9% 1000 ML INJ 1,000 ML IV ONE ×2 (12:30→13:00)
--- NOTE | 2017-02-03 12:37 | RADRPT ---
EXAM DATE/TIME: 02/03/2017 12:23 [facility] COMPARISON: CT BRAIN W/O CONTRAST, July 13, 2014, 10:55. CT BRAIN W/O CONTRAST, November 19, 2016, 13:23. INDICATIONS : Altered mental status. Hypotension. RADIATION DOSE: 34.50 CTDIvol (mGy) MEDICAL HISTORY : Cardiovascular disease. Hypertension. Lupus. SURGICAL HISTORY : None. ENCOUNTER: Initial ACUITY: 1 day PAIN SCALE: 0/10 LOCATION: cranial TECHNIQUE: Multiple contiguous axial images were obtained of the head. Using automated exposure control and adj ustment of the mA and/or kV according to patient size, radiation dose was kept as low as reasonably a chievable to obtain optimal diagnostic quality images. DICOM format image data is available electro nically for review and comparison. FINDINGS: Approximate 1 cm right anterior parietal meningioma has not changed since 2013. There are old lacunar infarctions in the left basal ganglia not significantly changed. The visualized bony structures appe ar intact. Slight degree of brain atrophy is seen. Slight to moderate periventricular white matter c hanges are seen nonspecific mostly consistent with chronic small vessel ischemic changes. There are no signs of acute infarction for technique. CONCLUSION: Stable meningioma on the right and chronic changes without any significant hemorrhage or mass effect. Tiesha Quinteros MD on February 03, 2017 at 12:33 Board Certified Radiologist. This report was verified electronically.
[2017-02-03 12:40] LABS: BACTERIA, URINE MANY /hpf; BLOOD, URINE NEG (NEG); GLUCOSE,URINE NEG (NEG); HYALINE CAST, URINE 30 /lpf (RARE); INTERNATIONAL NORMALIZED RATIO 1.7 RATIO; KETONE, URINE NEG (NEG); MUCUS URINE MOD /lpf (OCC); NITRITE,URINE NEG (NEG); PH, URINE 5.5 (5.0-8.5); PROTHROMBIN TIME - PATIENT 19.8 SEC (9.8-11.6); SQUAMOUS EPITHELIAL CELL URINE 24 /hpf (0-5); URINE COLOR DARK-YELLOW (YELLW/STRAW)
[2017-02-03 12:43] LABS: COMMENT (UR) CATH-CULTURE IND; CULTURE IF INDICATED CATH CULTURE IND
[2017-02-03] MEDS ORDERED: VANCOMYCIN INJ 1,000 MG in SODIUM CHLOR 0.9% 250 ML INJ 250 ML IV ONE (13:00)
[2017-02-03] MEDS ORDERED: PIPERACIL-TAZO 4.5 GM PREMIX 100 ML IV ONE (13:00)
[2017-02-03 13:14] LABS: ALKALINE PHOSPHATASE 78 U/L (45-117); ALT (GPT) 9 U/L (10-53); AST (GOT) 11 U/L (15-37); BLOOD UREA NITROGEN 35 MG/DL (7-18); GLOMERULAR FILTRATION RATE 33 ML/MIN (>89)
[2017-02-03 13:15] LABS: ANION GAP 8 MEQ/L (5-15); BICARBONATE 25.6 MEQ/L (21.0-32.0); CHLORIDE 104 MEQ/L (98-107); CREATINE KINASE 30 U/L (26-192); POTASSIUM 4.9 MEQ/L (3.5-5.1); SODIUM (NA) 138 MEQ/L (136-145); TOTAL BILIRUBIN ADULT 0.2 MG/DL (0.2-1.0)
--- NOTE | 2017-02-03 13:26 | RADRPT ---
EXAM DATE/TIME: 02/03/2017 12:51 [facility] COMPARISON: CHEST SINGLE AP, January 05, 2017, 17:28. INDICATIONS : Syncope weakness. MEDICAL HISTORY : Loop recorder SURGICAL HISTORY : None. ENCOUNTER: Initial ACUITY: 3 days PAIN SCORE: 0/10 LOCATION: Bilateral chest FINDINGS: The heart is normal in size. The lungs are clear note is made of a defibrillator. The visualized bony structures are intact. CONCLUSION: 1. No acute cardiopulmonary findings. Zelalem Zhou MD on February 03, 2017 at 13:22 Board Certified Radiologist. This report was verified electronically.
--- NOTE | 2017-02-03 13:49 | HHI.HP ---
[facility] Service Family Medicine Primary Care Physician Shan Quick MD Admission Diagnosis Diagnoses: International Travel<30 Days: No Contact w/Intl Traveler<30days: No Known Affected Area: No History of Present Illness Patient is a 56-year-old female with a PMH significant for CVA x3, SLE, T2DM, CKD, HTN. Initially presented to clinic and was seen by Dr. Dumont. She was noted to be hypotensive and endorsed fatigue, lethargy, chills. She reported that she felt like her prior UTI at which time she required a 4 day hospitalization due to urosepsis. During the hospitalization she was treated with vancomycin and aztreonam initially but then continued on aztreonam for a total of 3 days. Urine culture was positive for enterococcus faecalis which was resistant to ciprofloxacin and tetracycline but otherwise sensitive. She responded well to IV antibiotics and IV hydration. She was then discharged on Macrobid with the plan of starting Cipro for prophylaxis due to history of recurrent UTIs. There was also discussion at the prior hospitalization for possible hospice due to her declining health and recurrent UTIs. However this was ultimately declined as patient did return to her baseline. Currently, patient is able to state that she has been feeling unwell over the last week but is unable to characterize her symptoms. Remaining history was obtained from her . reports that for the last 3 days patient has been having a significant decrease in her appetite and energy level. This morning she was falling asleep eating breakfast which is very unusual. She otherwise was asymptomatic and patient denies any pain or dysuria. Of note, patient's does state she is "blah" at baseline. In regards to the prophylactic antibiotic, there appears to be in some issue in obtaining the medication and she was not on any form of antibiotics between 01/19 through 01/25. She was started on an unknown antibiotic from 01/26 until now. (Alexandra Gao MD R2) Review of Systems ROS Limitations: Clinical Condition Respiratory: DENIES: Shortness of breath Cardiovascular: DENIES: Chest pain Gastrointestinal: DENIES: Abdominal pain Genitourinary: DENIES: Dysuria (Alexandra Gao MD R2) Past Family Social History Past Medical History History of CVA 3 with persistent right-sided deficits SLE T2DM CKD stage 3 L Femoral neck fracture Depression Vitamin D deficiency HLD Hypothyroidism HTN H/o adrenal insufficiency Restless leg syndrome Sleep apnea-has not been using sleep CPAP lately Past Surgical History percutaneous pinning of L femur fx 08/2016 Cholecystectomy 1996 Right oophero salpingectomy 1996 Heart implant monitoring 2016-removed Reported Medications Reported Meds & Active Scripts Active Risperdal (Risperidone) 2 Mg Tab 2 Mg PO HS Ferrous Sulfate Liq (Ferrous Sulfate) 300 Mg/5 Ml Soln 300 Mg PO BID Vitamin D3 (Cholecalciferol) 50,000 Unit Cap 50,000 Units PO WEEKLY Tramadol (Tramadol HCl) 50 Mg Tab 50 Mg PO Q6H PRN Hydrocodone-Acetaminophen 10-325 mg Tab 1 Tab PO Q6H PRN Coumadin (Warfarin) 4 Mg Tab 4 Mg PO DAILY Levothyroxine (Levothyroxine Sodium) 88 Mcg Tab 88 Mcg PO DAILY Lisinopril 40 Mg Tab 40 Mg PO DAILY Metformin (Metformin HCl) 1,000 Mg Tab 1,000 Mg PO BIDPC With meals Simvastatin 40 Mg Tab 40 Mg PO HS Citalopram (Citalopram Hydrobromide) 40 Mg Tab 40 Mg PO DAILY hold this medication until course of antibiotics has been completed Gabapentin 800 Mg Tab 800 Mg PO TID Reported Multi-Vitamin Daily (Multiple Vitamin) 1 Tab Tab 1 Tab PO DAILY Aspirin Adult Low Strength (Aspirin) 81 Mg Tabdr 81 Mg PO DAILY (Alexandra Gao MD R2) Allergies: Coded Allergies: Penicillin (Verified Allergy, Severe, Rash, 02/03/17) Family History Father's at 63 of throat and tongue cancer, heavy smoker Mother is at 55 cardiac complications One sister has cardiac disease and hypertension Social History Currently living with at home Tobacco: Denies Alcohol: Denies Drugs: Denies (Alexandra Gao MD R2) Physical Exam Vital Signs Vital Signs Date Time Temp Pulse Resp B/P Pulse Ox O2 Delivery O2 Flow Rate FiO2 02/03/17 13:29 97.4 87 18 121/82 99 Room Air 02/03/17 12:58 68 18 98/61 98 Room Air 02/03/17 12:18 73 20 103/56 97 Room Air 02/03/17 11:44 20 97 Room Air 02/03/17 11:40 74 20 96 Room Air 02/03/17 11:40 99.3 74 20 89/61 96 Room Air 02/03/17 11:23 98.8 84 16 80/55 92 Room Air Physical Exam GENERAL: In no apparent distress. Resting comfortably in bed. SKIN: No rashes, ecchymoses or lesions. Cool and dry. No sacral ulcers but surrounding erythema. Pale face. EYES: Pupils equal round and reactive. Extraocular motions intact. No scleral icterus. No injection or drainage. ENT: Nose without bleeding, purulent drainage. Mucous membranes dry. Throat without erythema, tonsillar hypertrophy or exudate. NECK: No lymphadenopathy CARDIOVASCULAR: Regular rate and rhythm without murmurs, gallops, or rubs. RESPIRATORY: Clear to auscultation. Breath sounds equal bilaterally. No wheezes , rales, or rhonchi. GASTROINTESTINAL: Abdomen soft, non-tender, nondistended. No hepato-splenomegaly , or palpable masses. No guarding. MUSCULOSKELETAL: Extremities without clubbing, cyanosis, or edema. No calf tenderness. NEUROLOGICAL: Arousable to voice but falls asleep easily. Oriented to time when prompted. [place] to place. Right sided hemiplegia. Laboratory Laboratory Tests Test 02/03/17 12:00 White Blood Count 8.0 Red Blood Count 4.02 Hemoglobin 10.8 Hematocrit 33.9 Mean Corpuscular Volume 84.2 Mean Corpuscular Hemoglobin 26.8 Mean Corpuscular Hemoglobin 31.8 Concent Red Cell Distribution Width 15.7 Platelet Count 201 Mean Platelet Volume 9.4 Neutrophils (%) (Auto) 57.4 Lymphocytes (%) (Auto) 29.7 Monocytes (%) (Auto) 8.9 Eosinophils (%) (Auto) 3.4 Basophils (%) (Auto) 0.6 Neutrophils # (Auto) 4.6 Lymphocytes # (Auto) 2.4 Monocytes # (Auto) 0.7 Eosinophils # (Auto) 0.3 Basophils # (Auto) 0.0 CBC Comment DIFF FINAL Differential Comment Prothrombin Time 19.8 Prothromb Time International 1.7 Ratio Urine Color DARK-YELLOW Urine Turbidity CLOUDY Urine pH 5.5 Urine Specific [place] 1.018 Urine Protein TRACE Urine Glucose (UA) NEG Urine Ketones NEG Urine Occult Blood NEG Urine Nitrite NEG Urine Bilirubin NEG Urine Urobilinogen LESS THAN 2.0 Urine Leukocyte Esterase SMALL Urine RBC 9 Urine WBC 6 Urine Squamous Epithelial 24 Cells Urine Bacteria MANY Urine Hyaline Casts 30 Urine Mucus MOD Microscopic Urinalysis Comment CATH-CULTURE IND Sodium Level 138 Potassium Level 4.9 Chloride Level 104 Carbon Dioxide Level 25.6 Anion Gap 8 Blood Urea Nitrogen 35 Creatinine 1.60 Estimat Glomerular Filtration 33 Rate Random Glucose 80 Lactic Acid Level 3.1 Calcium Level 9.3 Total Bilirubin 0.2 Aspartate Amino Transf 11 (AST/SGOT) Alanine Aminotransferase 9 (ALT/SGPT) Alkaline Phosphatase 78 Ammonia 34 Total Creatine Kinase 30 Troponin I LESS THAN 0.02 Total Protein 6.5 Albumin 2.8 Thyroid Stimulating Hormone 0.234 3rd Gen Ethyl Alcohol Level LESS THAN 3 Date/Time Procedure Status Source Growth 02/03/17 12:00 Urine Culture Received Urine Catheterized Urine Pending 02/03/17 11:56 Aerobic Blood Culture Received Blood Peripheral Pending 02/03/17 11:56 Anaerobic Blood Culture Received Blood Peripheral Pending (Alexandra Gao MD R2) Result Diagram: 02/03/17 1200 02/03/17 1200 Imaging Last Impressions Head CT 02/03/17 1142 Signed Impressions: Service Date/Time: January 12:23 - CONCLUSION: Stable meningioma on the right and chronic changes without any significant hemorrhage or mass effect. Tiesha Quinteros MD Chest X-Ray 02/03/17 1142 Signed Impressions: Service Date/Time: January 12:51 - CONCLUSION: 1. No acute cardiopulmonary findings. Zelalem Zhou MD (Alexandra Gao MD R2) Assessment and Plan Assessment and Plan 56-year-old female with a PMH significant for CVA x3, SLE, T2DM, CKD, HTN. Admitted for UTI associated with lactic acidosis and hypotension Code Status DNR Did discuss hospice care but patient's still declines but understands the role. He is having a hard time making the decision to go with hospice even though logically he believes she may benefit from their care. He is open to comfort measures but without hospice involvement at this time. Discussed Condition With Discussed with Dr. Trinidad (Alexandra Gao MD R2) Attending Attestation Patient seen and examined. Case reviewed and discussed with the resident team. Agree with plan of care as discussed with me and documented in the resident note. (Danielle Trinidad MD) Problem List: (1) UTI (lower urinary tract infection) Status: Acute Plan: History of recurrent UTIs that present with hypotension. He was last hospitalized on 12/2016 for urosepsis which was treated with aztreonam. Patient does not meet sepsis criteria but did have hypotension and lactic acidosis on admission. Hypotension has now resolved while in the ED with 1L bolus x3. Elevate BUN likely contributing to drowsiness. -UA significant for WBCs, leukocyte esterase however there are significant squamous cells -No leukocytosis but lactic acid is elevated -No indication for ACS evaluation at this time -Cardiac telemetry -Monitor I&Os -CXR and Head CT unremarkable -Urine and blood culture pending Medications: * Aztreonam 1g q8 (02/03- * Vanc and Zosyn x1 in ED (2) JAMAL (acute kidney injury) Status: Acute Plan: Large fluctuations in patient's creatinine from a high of 8.3 to a low of 0.69 between 07/2016 until now. Last recorded creatinine was in the hospital was 1.3 -Creatinine on admission was 1.6, electrolytes unremarkable -Repeat BMP at 1600 (3) Hypotension Status: Resolved Plan: Hypotension on admission with a map of 63. This has since resolved after fluid resuscitation in the ED. -Hold HOME lisinopril -Discontinued home amlodipine as pt's reports not taking this medication Please see more details above (4) CVA (cerebral infarction) Status: Chronic Plan: History of CVA and is currently on Coumadin. Slightly subtherapeutic on admission at 1.7 -Continue Coumadin 4 mg daily -Monitor INR (5) Diabetes Status: Chronic Plan: Hold home metformin -Low dose sliding scale (6) Nutrition, metabolism, and development symptoms Status: Acute Plan: Diet: Regular, mechanical soft. Patient's request no restrictions on the type of food but is okay with mechanical soft foods Electrolytes: Unremarkable Fluid: NS at 115 DVT PPX: SCDs while warfarin is subtherapeutic GI PPX: not indicated at this time Chronic medications: * CAD: continued apirin 81mg, statin, * Hypothyroidism: levothyroxine 88mcg * Restless leg syndrome: Gabapentin 800mg TID, Risperdal 2mg HS (Alexandra Gao MD R2) Physician Certification 2 Midnight Certification Type: Admission for Inpatient Services Order for Inpatient Services The services are ordered in accordance with Medicare regulations or non- Medicare payer requirements, as applicable. In the case of services not specified as inpatient-only, they are appropriately provided as inpatient services in accordance with the 2-midnight benchmark. Estimated LOS (days): 3 days is the estimated time the patient will need to remain in the hospital, assuming treatment plan goals are met and no additional complications. Post-Hospital Plan: Not yet determined (Alexandra Gao MD R2) Problem Qualifiers (1) Diabetes: Alexandra Gao MD R2 Feb 03, 2017 13:49 Danielle Trinidad MD Feb 04, 2017 11:58
[2017-02-03] MEDS ORDERED: RISP2TAB37 PO (14:15)
[2017-02-03 14:18] LABS: LACTIC ACID GHOST NOT REPORTABLE
[2017-02-03] MEDS ORDERED: ONDANSETRON HCL 4 MG/2 ML VIAL IVP PRN (14:45)
[2017-02-03] MEDS ORDERED: BISACODYL 10 MG SUPP RECTAL PRN (14:45)
[2017-02-03] MEDS ORDERED: NALOXONE HCL 0.4 MG/ML AMP IV PRN ×2 (14:45→15:00)
[2017-02-03] MEDS ORDERED: SODIUM CHLORIDE 0.9% FLUSH 10 ML FLUSH IV FLUSH PRN (14:45)
[2017-02-03] MEDS ORDERED: SENNOSIDES 8.6 MG TAB PO PRN (14:45)
[2017-02-03] MEDS ORDERED: ACETAMINOPHEN 325 MG TAB PO PRN (14:45)
[2017-02-03] MEDS ORDERED: MAGNESIUM HYDROXIDE SUSP 30 ML CUP PO PRN (14:45)
[2017-02-03] MEDS ORDERED: LACTULOSE SYRUP 20 GM/30 ML CUP PO PRN (14:45)
[2017-02-03] MEDS ORDERED: ACETAMINOPHEN/HYDROcodone 325 MG/10 MG TAB PO PRN (15:00)
[2017-02-03] MEDS ORDERED: ACETAMINOPHEN/HYDROcodone 325 MG/5 MG TAB PO PRN (15:00)
--- NOTE | 2017-02-03 15:17 | HHI.FPPN ---
Subjective Remarks Pt. seen and examined; discussed withDr. Gao. This is a 56 yo chronically ill female with multiple chronic problems including history of stroke, CKD, T2 DM, and recent hospitalization for urosepsis. She was sent home from her most recent hospitalization with antibiotics (Macrobid) and was to have finished that and started Cipro prophylactically. However, they weren't able to get the Cipro until January 26. She did fairly well until approximately one week ago when she started feeling weaker, sleeping more and generally feeling unwell. Today she fell asleep while eating breakfast, so her /caregiver brought her to the [facility] where her BP was found to be very low. She was sent to the ED by Dr. Dumont. She is seen in the ED after some fluid resuscitation, and her BP has improved somewhat. Her is with her. Please see H&P for this hospitalization for additional past, family and social history and ROS. She had a BM yesterday, minimal intake. She is chronically cared for in bed by her , as has been the case for many months. She continues to be very weak and frail, but is adamant at this point that while hospice is a consideration, he is not ready for that. Objective Vitals Vital Signs Date Time Temp Pulse Resp B/P Pulse Ox O2 Delivery O2 Flow Rate FiO2 02/03/17 14:39 98 21 02/03/17 14:33 97.8 80 18 112/77 98 Room Air 02/03/17 13:29 97.4 87 18 121/82 99 Room Air 02/03/17 12:58 68 18 98/61 98 Room Air 02/03/17 12:18 73 20 103/56 97 Room Air 02/03/17 11:44 20 97 Room Air 02/03/17 11:40 74 20 96 Room Air 02/03/17 11:40 99.3 74 20 89/61 96 Room Air 02/03/17 11:23 98.8 84 16 80/55 92 Room Air I/O 02/02/17 02/02/17 02/02/17 02/03/17 02/03/17 02/03/17 07:00 15:00 23:00 07:00 15:00 23:00 Output Total 600 ml Balance -600 ml Output Urine Total 600 ml # Voids 1 Result Diagram: 02/03/17 1200 02/03/17 1200 Other Results Laboratory Tests Test 02/03/17 02/03/17 12:00 14:00 White Blood Count 8.0 TH/MM3 Red Blood Count 4.02 MIL/MM3 Hemoglobin 10.8 GM/DL Hematocrit 33.9 % Mean Corpuscular Volume 84.2 FL Mean Corpuscular Hemoglobin 26.8 PG Mean Corpuscular Hemoglobin 31.8 % Concent Red Cell Distribution Width 15.7 % Platelet Count 201 TH/MM3 Mean Platelet Volume 9.4 FL Neutrophils (%) (Auto) 57.4 % Lymphocytes (%) (Auto) 29.7 % Monocytes (%) (Auto) 8.9 % Eosinophils (%) (Auto) 3.4 % Basophils (%) (Auto) 0.6 % Neutrophils # (Auto) 4.6 TH/MM3 Lymphocytes # (Auto) 2.4 TH/MM3 Monocytes # (Auto) 0.7 TH/MM3 Eosinophils # (Auto) 0.3 TH/MM3 Basophils # (Auto) 0.0 TH/MM3 CBC Comment DIFF FINAL Differential Comment Prothrombin Time 19.8 SEC Prothromb Time International 1.7 RATIO Ratio Urine Color DARK-YELLOW Urine Turbidity CLOUDY Urine pH 5.5 Urine Specific [place] 1.018 Urine Protein TRACE mg/dL Urine Glucose (UA) NEG mg/dL Urine Ketones NEG mg/dL Urine Occult Blood NEG Urine Nitrite NEG Urine Bilirubin NEG Urine Urobilinogen LESS THAN 2.0 MG/DL Urine Leukocyte Esterase SMALL Urine RBC 9 /hpf Urine WBC 6 /hpf Urine Squamous Epithelial 24 /hpf Cells Urine Bacteria MANY /hpf Urine Hyaline Casts 30 /lpf Urine Mucus MOD /lpf Microscopic Urinalysis Comment CATH-CULTURE IND Sodium Level 138 MEQ/L Potassium Level 4.9 MEQ/L Chloride Level 104 MEQ/L Carbon Dioxide Level 25.6 MEQ/L Anion Gap 8 MEQ/L Blood Urea Nitrogen 35 MG/DL Creatinine 1.60 MG/DL Estimat Glomerular Filtration 33 ML/MIN Rate Random Glucose 80 MG/DL Lactic Acid Level 3.1 mmol/L 3.4 mmol/L Calcium Level 9.3 MG/DL Total Bilirubin 0.2 MG/DL Aspartate Amino Transf 11 U/L (AST/SGOT) Alanine Aminotransferase 9 U/L (ALT/SGPT) Alkaline Phosphatase 78 U/L Ammonia 34 MCMOL/L Total Creatine Kinase 30 U/L Troponin I LESS THAN 0.02 NG/ML Total Protein 6.5 GM/DL Albumin 2.8 GM/DL Thyroid Stimulating Hormone 0.234 uIU/ML 3rd Gen Ethyl Alcohol Level LESS THAN 3 MG/DL Imaging Last Impressions Head CT 02/03/17 1142 Signed Impressions: Service Date/Time: , February 03, 2017 12:23 - CONCLUSION: Stable meningioma on the right and chronic changes without any significant hemorrhage or mass effect. Tiesha Quinteros MD Chest X-Ray 02/03/17 1142 Signed Impressions: Service Date/Time: , February 03, 2017 12:51 - CONCLUSION: 1. No acute cardiopulmonary findings. Zelalem Zhou MD Objective Remarks O. CONSTITUTIONAL/GEN: Pale, somnolent, furrowed brow. EYES: conjunctiva pale, PERRLA, EOMI. Lids are red-rimmed. ENT: Oral MM moist (jesthad a drink of water) but lips dry and cracked. NECK: thyroid midline, carotids symmetrical. No lymphadenopathy. LUNGS: clear A-P, respiratory effort is normal. CARDIOVASCULAR: RR without murmur or gallop. No significant edema. No tachycardia. GI/ABD: soft without masses, without organomegaly. BS + SKIN: color pa;e, no rashes noted. HEME/LYMPH: no bruising, petechia or significant adenopathy MUSC: Extremities are normal in appearance. No calf tenderness. PSYCH/MENTAL STATUS: Alert and oriented x 2-3. Variable. A/P Assessment and Plan 56 yo female who is chronically ill with history of recent urosepsis in December 2016, T2DM, CKD, history of stroke here because of low BP, likely recurrent UTI , elevated lactic acid 3.4, many bacteria in urine, who was not on her prophylactic antibiotic for UTI until after a 2 wk gap antibiotic-free. See orders. Attending Attestation Patient seen and examined. Case reviewed and discussed with the resident team. Agree with plan of care as discussed with me and documented in the resident note. Danielle Trinidad MD Feb 03, 2017 15:17
[2017-02-03] MEDS ORDERED: GLUCAGON 1 MG/ML VIAL OTHER PRN (15:45)
[2017-02-03] MEDS ORDERED: DEXTROSE 50% IN WATER 50 ML VIAL(D50) IV PRN (15:45)
[2017-02-03] MEDS ORDERED: ENALAPRILAT 1.25 MG/ML VIAL IV PRN (15:45)
[2017-02-03] MEDS: SODIUM CHLOR 0.9% 1000 ML INJ 1,000 ML IV SCH (16:00)
[2017-02-03] MEDS: INSULIN ASPART SUPPLEMENTAL SCALE SQ SCH ×2 (16:00→21:00)
[2017-02-03 16:44] LABS: AMPHETAMINE, URINE NEG (NEG); BARBITURATES, URINE NEG (NEG); COCAINE, URINE NEG (NEG)
--- NOTE | 2017-02-03 17:33 | RADRPT ---
EXAM DATE/TIME: 02/03/2017 16:59 [facility] COMPARISON: US KIDNEY/RENAL/BLADDER, August 09, 2016, 23:19. INDICATIONS : Increased labs. Recurrent UTIs. MEDICAL HISTORY : Hypercholesterolemia. Hypertension. Gastroesophageal reflux disease. Hyperlipidemia. Hiatal hernia. D ementia. TIA. CVA. Sleep apnea. Ovarian cysts. Hypothyroidism. Liver disease. Diabetes type 2. Osteoa rthritis. Lupus. SURGICAL HISTORY : Cholecystectomy. Tubal ligation. Right oophrectomy. Left hip surgery. ENCOUNTER: Initial ACUITY: 1 day PAIN SCORE: Nonresponsive. LOCATION: Bilateral flank MEASUREMENTS: RIGHT KIDNEY: 12.00 x 5.2 x 4.3 cm LEFT KIDNEY: 11.00 x 4.9 x 5.9 cm FINDINGS: RIGHT KIDNEY: Renal cortex is normal in thickness and echotexture. No hydronephrosis, stone, or mass. LEFT KIDNEY: Renal cortex is normal in thickness and echotexture. No hydronephrosis, stone, or mass. BLADDER: The bladder is totally decompressed a Cardoso balloon present. CONCLUSION: Normal examination. Jordan Borges Jr., MD on February 03, 2017 at 17:24 Board Certified Radiologist. This report was verified electronically.
[2017-02-03] MEDS ORDERED: cloNIDine HCL 0.1 MG TAB PO PRN (17:45)
[2017-02-03] MEDS: GABAPENTIN 400 MG CAP PO SCH (18:38)
[2017-02-03] MEDS: WARFARIN SOD 4 MG TAB PO SCH (18:38)
[2017-02-03] MEDS: AZTREONAM INJ 1,000 MG in SODIUM CHLORIDE 0.9% INJ 100 ML IV SCH (18:38)
[2017-02-03] MEDS: DOCUSATE SODIUM 50 MG/SENNA 8.6 MG TAB PO SCH (21:00)
[2017-02-03] MEDS: SODIUM CHLORIDE 0.9% FLUSH 10 ML FLUSH IV FLUSH SCH (21:00)
[2017-02-03] MEDS ORDERED: SODIUM CHLORIDE 0.9% FLUSH 10 ML FLUSH IV FLUSH SCH (21:00)
[2017-02-03] MEDS: risperiDONE 1 MG TAB PO SCH (21:00)
[2017-02-03] MEDS: PRAVASTATIN SOD 80 MG TAB PO SCH (21:00)
[2017-02-03 23:02] LABS: BICARBONATE 23.9 MEQ/L (21.0-32.0); POTASSIUM 4.7 MEQ/L (3.5-5.1)
[2017-02-04] VITALS (10 sets, daily range): BP systolic 119–156; BP diastolic 72–81; PULSE 64–83; RESP 16–20; TEMP 97.6–98.2; O2SAT 95–99
[2017-02-04] MEDS: AZTREONAM INJ 1,000 MG in SODIUM CHLORIDE 0.9% INJ 100 ML IV SCH ×3 (01:39→16:19)
[2017-02-04] MEDS: SODIUM CHLOR 0.9% 1000 ML INJ 1,000 ML IV SCH ×2 (01:40→09:01)
[2017-02-04] MEDS: LEVOTHYROXINE SODIUM 88 MCG TAB PO SCH (05:53)
[2017-02-04] MEDS: INSULIN ASPART SUPPLEMENTAL SCALE SQ SCH ×4 (05:53→22:40)
[2017-02-04 08:00] LABS: AUTOMATED NEUTROPHIL # 3.1 TH/MM3 (1.8-7.7); BASOPHIL % 0.8 % (0.0-2.0); EOSINOPHIL # 0.3 TH/MM3 (0-0.4); EOSINOPHIL % 5.4 % (0.0-4.0); HEMATOCRIT 28.1 % (35.0-46.0); HEMO FLAGS DIFF FINAL; LYMPH % 25.4 % (9.0-44.0); LYMPHOCYTE # 1.3 TH/MM3 (1.0-4.8); MEAN CELL VOLUME 83.2 FL (80.0-100.0); MEAN CORPUSCULAR HEMOGLOBIN 27.6 PG (27.0-34.0); MEAN CORPUSCULAR HGB CONC 33.2 % (32.0-36.0); MONO % 9.3 % (0.0-8.0); NEUT % 59.1 % (16.0-70.0); PLATELET COUNT 166 TH/MM3 (150-450); RED BLOOD COUNT 3.38 MIL/MM3 (4.00-5.30); RED CELL DISTRIBUTION WIDTH 15.7 % (11.6-17.2); WHITE BLOOD COUNT 5.3 TH/MM3 (4.0-11.0)
[2017-02-04 08:16] LABS: INTERNATIONAL NORMALIZED RATIO 2.6 RATIO; PROTHROMBIN TIME - PATIENT 30.1 SEC (9.8-11.6)
[2017-02-04 08:27] LABS: BICARBONATE 24.9 MEQ/L (21.0-32.0); POTASSIUM 4.7 MEQ/L (3.5-5.1)
--- NOTE | 2017-02-04 08:54 | HHI.FPPN ---
Subjective Remarks Patient interviewed with her in the room. provides much of the history. He states the patient is much better than she was 24 hours ago. She is now awake alert and oriented 3. His main concern is that he will need to come back to the hospital at a later date. He believes she will get better from this, but is concerned he will need to come back with her. Patient denies fever, chills, nausea. She feels better. Her appetite is improved. (Ralf Trinidad MD R2) Objective Vitals Vital Signs Date Time Temp Pulse Resp B/P Pulse Ox O2 Delivery O2 Flow Rate FiO2 02/04/17 08:20 99 02/04/17 08:00 98.2 75 18 156/73 99 02/04/17 04:00 98.1 74 18 131/77 96 02/04/17 00:00 97.6 76 18 131/76 95 02/03/17 20:00 97.8 85 18 132/83 95 02/03/17 15:55 97.7 79 18 104/64 95 02/03/17 15:32 97.8 81 18 114/76 99 02/03/17 14:39 98 21 02/03/17 14:33 97.8 80 18 112/77 98 Room Air 02/03/17 13:29 97.4 87 18 121/82 99 Room Air 02/03/17 12:58 68 18 98/61 98 Room Air 02/03/17 12:18 73 20 103/56 97 Room Air 02/03/17 11:44 20 97 Room Air 02/03/17 11:40 74 20 96 Room Air 02/03/17 11:40 99.3 74 20 89/61 96 Room Air 02/03/17 11:23 98.8 84 16 80/55 92 Room Air I/O 02/03/17 02/03/17 02/03/17 02/04/17 02/04/17 02/04/17 07:00 15:00 23:00 07:00 15:00 23:00 Intake Total 320 ml 920 ml Output Total 600 ml 600 ml 600 ml Balance -600 ml -280 ml 320 ml Intake IV Total 320 ml 920 ml Output Urine Total 600 ml 600 ml 600 ml # Voids 1 (Ralf Trinidad MD R2) Result Diagram: 02/04/1735 02/04/17734 Objective Remarks O. CONSTITUTIONAL/GEN: Pale, somnolent, furrowed brow. EYES: conjunctiva pale, PERRLA, EOMI. ENT: Oral MM moist NECK: thyroid midline, carotids symmetrical. No lymphadenopathy. LUNGS: clear A-P, respiratory effort is normal. CARDIOVASCULAR: RR without murmur or gallop. No significant edema. No tachycardia. GI/ABD: soft without masses, without organomegaly. BS + SKIN: color pale, no rashes noted. HEME/LYMPH: no bruising, petechia or significant adenopathy MUSC: Extremities are normal in appearance. No calf tenderness. PSYCH/MENTAL STATUS: Alert and oriented x 2-3. Somnolent. (Ralf Trinidad MD R2) A/P Assessment and Plan 56-year-old female with a PMH significant for CVA x3, SLE, T2DM, CKD, HTN. Admitted for UTI associated with lactic acidosis and hypotension. 6 hospitalizations already in 2017. would like to wait and see how she responds to treatment before deciding on palliative/hospice consult. Discharge Planning Pending improvement in acute illness. Previously /patient has refused home health care. Physical therapy consulted (Ralf Trinidad MD R2) Attending Attestation Patient seen and examined. Case reviewed and discussed with the resident team. Agree with plan of care as discussed with me and documented in the resident note. (Danielle Trinidad MD) Problem List: (1) UTI (lower urinary tract infection) Status: Acute Plan: -Urine and blood culture pending Continue antibiotics Aztreonam 1g q8 (02/03- (2) Physical deconditioning Status: Acute Plan: Patient is a fall risk. One-to-one precautions Physical therapy to evaluate fall risk and deconditioning Fall precautions (3) JAMAL (acute kidney injury) Status: Acute Plan: Improving. Continue IV hydration. (4) Hypotension Status: Resolved Plan: -Holding home lisinopril -Discontinued home amlodipine as pt's reports not taking this medication (5) CVA (cerebral infarction) Status: Chronic Plan: History of CVA and is currently on Coumadin. Slightly subtherapeutic on admission -Continue Coumadin 4 mg daily -Monitor INR (6) Diabetes Status: Chronic Plan: Hold home metformin -Low dose sliding scale (7) Nutrition, metabolism, and development symptoms Status: Acute Plan: Diet: Regular, mechanical soft. Patient's request no restrictions on the type of food but is okay with mechanical soft foods Electrolytes: Monitor replace as needed Fluid: NS at 115 DVT PPX: Warfarin and SCDs GI PPX: not indicated at this time Chronic medications: * CAD: continued apirin 81mg, statin, * Hypothyroidism: levothyroxine 88mcg * Restless leg syndrome: Gabapentin 800mg TID, Risperdal 2mg HS (Ralf Trinidad MD R2) Problem Qualifiers (1) Diabetes: Ralf Trinidad MD R2 Feb 04, 2017 08:54 Danielle Trinidad MD Feb 04, 2017 12:00
[2017-02-04] MEDS: ASPIRIN EC 81 MG TABEC PO SCH (08:56)
[2017-02-04] MEDS: GABAPENTIN 400 MG CAP PO SCH ×3 (08:56→18:16)
[2017-02-04] MEDS: DOCUSATE SODIUM 50 MG/SENNA 8.6 MG TAB PO SCH ×2 (08:56→22:31)
[2017-02-04] MEDS: SODIUM CHLORIDE 0.9% FLUSH 10 ML FLUSH IV FLUSH SCH ×2 (08:57→22:31)
--- NOTE | 2017-02-04 09:56 | PQ ---
Physician Query Response Document PATIENT: BRITTANY TILLEY : 1960 ADMIT DATE: 02/03/2017 1:45 PM DISCH DATE: RESPONDING PROVIDER #: Fede QUERY TEXT: Sepsis Query Based on your medical judgement, can you further clarify the folowiing: CONFLICT OF SEPSIS DIAGNOSIS 1. Sepsis (SIRS due to an infection) 2. Sepsis with Organ Dysfunction 3. A localized Infection only 4. Another condition - please specify 5. Unable to determine - please explain. Depending on your selection above, please indicate one of the below if applicable: Sepsis was present on Admission Sepsis was not present The patient's Clinical Indicators include: Feb 03, 2017 13:49 Patient does not meet sepsis criteria but did have hypotension and lactic acidosis on admission. Feb 04, 2017 08:54 Sepsis due to urinary tract infection RESOLVED sepsis protocol INITIATED IN ER 3.1 and 3.4 bp 80/55 fatigue, lethargy, chills. She was started on an CIPRO from 01/26 until now for UTI chronically cared for in bed very weak and frail, ACUTE RENAL INJURY [employer] 1.6 BUN 35 AND GFR 33 TX NS boluS x3 IV vancomycin, zosyn Query created by: Riri Gutiérrez on 02/04/2017 9:24 AM RESPONSE TEXT: I dont believe she has all the criteria for sepsis; so this diagnosis should be removed. Electronically signed by: Danielle Trinidad MD 02/04/2017 9:52 AM
[2017-02-04] MEDS ORDERED: WARFARIN SOD 4 MG TAB PO SCH (16:00)
[2017-02-04] MEDS: WARFARIN SOD 4 MG TAB PO SCH (18:16)
[2017-02-04] MEDS: PRAVASTATIN SOD 80 MG TAB PO SCH (22:31)
[2017-02-04] MEDS: risperiDONE 1 MG TAB PO SCH (22:31)
[2017-02-05] VITALS (8 sets, daily range): BP systolic 118–176; BP diastolic 73–89; PULSE 74–85; RESP 16–20; TEMP 97–97.8; O2SAT 96–99
[2017-02-05] MEDS: AZTREONAM INJ 1,000 MG in SODIUM CHLORIDE 0.9% INJ 100 ML IV SCH ×3 (00:32→16:16)
[2017-02-05 06:12] LABS: AUTOMATED NEUTROPHIL # 2.8 TH/MM3 (1.8-7.7); BASOPHIL # 0.1 TH/MM3 (0-0.2); BASOPHIL % 1.1 % (0.0-2.0); EOSINOPHIL # 0.3 TH/MM3 (0-0.4); EOSINOPHIL % 5.5 % (0.0-4.0); HEMATOCRIT 30.9 % (35.0-46.0); HEMO FLAGS DIFF FINAL; LYMPH % 33.3 % (9.0-44.0); LYMPHOCYTE # 1.8 TH/MM3 (1.0-4.8); MEAN CELL VOLUME 83.8 FL (80.0-100.0); MEAN CORPUSCULAR HEMOGLOBIN 27.4 PG (27.0-34.0); MEAN CORPUSCULAR HGB CONC 32.7 % (32.0-36.0); MONO % 8.6 % (0.0-8.0); NEUT % 51.5 % (16.0-70.0); PLATELET COUNT 178 TH/MM3 (150-450); RED BLOOD COUNT 3.68 MIL/MM3 (4.00-5.30); RED CELL DISTRIBUTION WIDTH 15.3 % (11.6-17.2); WHITE BLOOD COUNT 5.5 TH/MM3 (4.0-11.0)
[2017-02-05 06:20] LABS: INTERNATIONAL NORMALIZED RATIO 2.8 RATIO; PROTHROMBIN TIME - PATIENT 32.1 SEC (9.8-11.6)
[2017-02-05 06:36] LABS: ANION GAP 6 MEQ/L (5-15); AST (GOT) 9 U/L (15-37); BICARBONATE 22.6 MEQ/L (21.0-32.0); BLOOD UREA NITROGEN 27 MG/DL (7-18); CHLORIDE 112 MEQ/L (98-107); GLOMERULAR FILTRATION RATE 50 ML/MIN (>89); POTASSIUM 4.4 MEQ/L (3.5-5.1); SODIUM (NA) 141 MEQ/L (136-145)
[2017-02-05 06:38] LABS: ALT (GPT) 7 U/L (10-53)
[2017-02-05 06:40] LABS: ALKALINE PHOSPHATASE 67 U/L (45-117); TOTAL BILIRUBIN ADULT 0.2 MG/DL (0.2-1.0)
[2017-02-05] MEDS: INSULIN ASPART SUPPLEMENTAL SCALE SQ SCH ×4 (07:00→20:46)
[2017-02-05] MEDS: LEVOTHYROXINE SODIUM 88 MCG TAB PO SCH (07:28)
[2017-02-05] MEDS ORDERED: hydrALAZINE HCL 10 MG TAB PO PRN (08:00)
[2017-02-05] MEDS ORDERED: LISINOPRIL 10 MG TAB PO SCH (09:00)
[2017-02-05] MEDS: DOCUSATE SODIUM 50 MG/SENNA 8.6 MG TAB PO SCH ×2 (09:05→20:44)
[2017-02-05] MEDS: GABAPENTIN 400 MG CAP PO SCH ×3 (09:05→18:04)
[2017-02-05] MEDS: ASPIRIN EC 81 MG TABEC PO SCH (09:06)
[2017-02-05] MEDS: MAGNESIUM SULFATE 1 GM PREMIX 100 ML IV SCH ×2 (09:07→16:17)
--- NOTE | 2017-02-05 09:44 | HHI.FPPN ---
Subjective Remarks Patient is doing well this morning. She has no complaints. She denies fever, chills, nausea, vomiting. (Ralf Trinidad MD R2) Objective Vitals Vital Signs Date Time Temp Pulse Resp B/P Pulse Ox O2 Delivery O2 Flow Rate FiO2 02/05/17 08:03 97.2 76 18 176/80 98 02/05/17 04:00 97.4 77 20 162/89 98 02/05/17 00:00 97.4 75 16 142/74 96 02/04/17 20:08 73 02/04/17 20:00 98.0 75 20 136/81 96 02/04/17 17:44 97 21 02/04/17 13:30 83 02/04/17 12:00 98.0 64 16 119/72 97 I/O 02/04/17 02/04/17 02/04/17 02/05/17 02/05/17 02/05/17 07:00 15:00 23:00 07:00 15:00 23:00 Intake Total 920 ml 720 ml Output Total 600 ml 500 ml 450 ml 900 ml Balance 320 ml 220 ml -450 ml -900 ml Intake Oral 720 ml IV Total 920 ml Output Urine Total 600 ml 500 ml 450 ml 900 ml # Bowel Movements 0 1 (Ralf Trinidad MD R2) Result Diagram: 02/05/17 0545 02/05/17 0545 Objective Remarks O. CONSTITUTIONAL/GEN: Pale, somnolent, furrowed brow. EYES: conjunctiva pale, PERRLA, EOMI. ENT: Oral MM moist NECK: thyroid midline, carotids symmetrical. No lymphadenopathy. LUNGS: clear A-P, respiratory effort is normal. CARDIOVASCULAR: RR without murmur or gallop. No significant edema. No tachycardia. GI/ABD: soft without masses, without organomegaly. BS + SKIN: color pale, no rashes noted. HEME/LYMPH: no bruising, petechia or significant adenopathy MUSC: Extremities are normal in appearance. No calf tenderness. PSYCH/MENTAL STATUS: Alert and oriented x 2-3. Somnolent. (Ralf Trinidad MD R2) A/P Assessment and Plan 56-year-old female with a PMH significant for CVA x3, SLE, T2DM, CKD, HTN. Admitted for UTI associated with lactic acidosis and hypotension. 6 hospitalizations already in 2017. would like to wait and see how she responds to treatment before deciding on palliative/hospice consult. Discharge Planning Pending improvement in acute illness. Previously /patient has refused home health care. Physical therapy consulted (Ralf Trinidad MD R2) Attending Attestation Patient seen and examined. Case reviewed and discussed with the resident team. Agree with plan of care as discussed with me and documented in the resident note. (Danielle Trinidad MD) Problem List: (1) UTI (lower urinary tract infection) Status: Acute Plan: -Urine and blood culture pending Continue antibiotics Aztreonam 1g q8 (02/03- (2) Depression Status: Chronic Plan: Psychiatry consult (3) Physical deconditioning Status: Acute Plan: Patient is a fall risk. One-to-one precautions Physical therapy to evaluate fall risk and deconditioning Fall precautions (4) JAMAL (acute kidney injury) Status: Acute Plan: Improving. Continue IV hydration. (5) Hypotension Status: Resolved Plan: -Holding home lisinopril -Discontinued home amlodipine as pt's reports not taking this medication (6) CVA (cerebral infarction) Status: Chronic Plan: History of CVA and is currently on Coumadin. Slightly subtherapeutic on admission -Continue Coumadin 4 mg daily -Monitor INR (7) Diabetes Status: Chronic Plan: Hold home metformin -Low dose sliding scale (8) Nutrition, metabolism, and development symptoms Status: Acute Plan: Diet: Regular, mechanical soft. Patient's request no restrictions on the type of food but is okay with mechanical soft foods Electrolytes: Monitor replace as needed Fluid: NS at 115 DVT PPX: Warfarin and SCDs GI PPX: not indicated at this time Chronic medications: * CAD: continued apirin 81mg, statin, * Hypothyroidism: levothyroxine 88mcg * Restless leg syndrome: Gabapentin 800mg TID, Risperdal 2mg HS (Ralf Trinidad MD R2) Problem Qualifiers (1) Depression: Qualified Code: F33.2 - Severe episode of recurrent major depressive disorder, without psychotic features (2) Diabetes: Ralf Trinidad MD R2 Feb 05, 2017 09:44 Danielle Trinidad MD Feb 05, 2017 11:44
--- NOTE | 2017-02-05 15:39 | MB ---
cc: LENA CEJA M.D., SUSAN W. M.D. DATE OF CONSULTATION: 02/05/2017 HISTORY OF PRESENT ILLNESS This 56-year-old white female with multiple medical problems was admitted with urosepsis. Psychiatric consultation is requested by Dr. Danielle Trinidad for evaluation and assistance in the management of "depression". The records indicate that she has a history of cerebrovascular accident, SLE, type 2 diabetes, chronic kidney disease, hypertension and has been managed by the [facility]. She also has a history of recurrent urinary tract infection and recently had required a four-day hospitalization due to urosepsis. SIGNIFICANT LAB WORKUP Urine drug screen positive for cannabinoid. BUN elevated at 31 on admission, repeated today 27, serum creatinine also slightly elevated at 1.13. Liver enzymes normal. Urinalysis positive for bacteria, hyaline cast, cath recommended. PT 32.1, INR 2.8. CT scan of the head, stable meningioma in the right and chronic changes without any significant hemorrhage or mass effect. Chest x-ray negative for any acute process. Renal ultrasound unremarkable. MEDICATIONS Her current medications are - 1. Lisinopril. 2. Apresoline. 3. Ecotrin. 4. Synthroid. 5. Pravachol. 6. Risperdal 2 mg q.h.s. 7. Neurontin 800 mg t.i.d. 8. Clonidine. 9. Senokot. 10. Dulcolax. 11. Lactulose. This evaluation is based on individual session with Ms. Velasqeuz and with her verbal consent I also interviewed her son Emmanuel individually. At the time of this evaluation, Ms. Velasquez talked in a very soft monotonous voice. When asked about her understanding of the reason for this hospitalization she responded "I got sick, I was having infection in my bladder". She mentioned that she has had urinary tract infection several times in the past as well. In addition she indicated that she has multiple medical problems as documented. She acknowledged experiencing "depression" several years ago for which she was started on Celexa which according to her had helped. When I inquired as to how she has been feeling over the past two months she responded "not too bad". However, later on the son indicated that she has been gradually feeling more depressed since the of her daughter three years ago. In addition, he also indicated that she has been increasingly getting forgetful. Ms. Velasquez denied any disturbance in her sleep or appetite. She denied entertaining any suicidal thoughts or any previous suicide attempts. This was also confirmed by the son. On further direct questioning, she did not give any history suggestive of bipolar affective disorder. According to the son, she has had cerebrovascular accidents and since then she has been increasingly feeling "down and demented". He lives with her and the patient's , i.e., his stepfather. The patient as well as the son denied any significant conflicts in their relationships. PAST PSYCHIATRIC HISTORY The patient denied any previous psychiatric intervention. This was also confirmed by the son. Specifically they both denied any previous psychiatric hospitalization. PAST MEDICAL HISTORY As mentioned, she has a history of cerebrovascular accident, SLE, type 2 diabetes, chronic kidney disease, left femoral neck fracture, vitamin D deficiency, hyperlipidemia, hypothyroidism, hypertension. History of adrenal insufficiency, restless leg syndrome, sleep apnea for which she has not been using a CPAP machine lately. She is status post cholecystectomy, status post left fracture repair, right salpingo-oophorectomy, heart implant. FAMILY HISTORY Her parents are . She has two sisters. She denied any family history of psychiatric illness or substance abuse. PERSONAL AND SOCIAL HISTORY She grew up in [place] and finished high school. 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 She was twice and had one son and one daughter from this marriage. She has been to her current . She denied any problems in this marriage. She denied any alcohol abuse but admitted to smoking marijuana "occasionally". CLINICAL OBSERVATION AND MENTAL STATUS EXAMINATION At the time of this evaluation, Ms. Velasquez presented as a reasonably well-groomed white female who looked her stated age. She displayed psychomotor retardation and talked in a soft monotonous voice. Responses to questions were generally brief. No overt anger or hostility was noticed. No bizarre behavior or mannerisms were noticed. Her affect was blunted, appropriate. Subjectively she described her mood as "I've been okay". Thought processes did not reveal any looseness of association or flight of ideas. No bebe delusions, auditory or visual hallucinations were noticed or reported. She denied active suicidal or homicidal ideations or intent at this time. She denied any previous suicide attempts. Cognitive functions: She was oriented to place and person, not to time. She gave the month as "January" but could not give the exact date. Memory: Immediate, she could do 4 digits forward, 3 digits backward. Recent, she could recall only 1/3 objects after 5 minutes. Remote, she could recall presidents up to President Obama only. Her attention and concentration was impaired. She could do serial 7s up to 93 only. Her fund of knowledge was adequate for example she knew the [place] of [facility] as "[place]". Her judgment and insight was felt to be fair. DIAGNOSTIC IMPRESSION 1. Major depressive disorder, mild recurrent. 2. Dementia. 3. Marijuana abuse. 4. Status post cerebrovascular accident x3. 5. Systemic lupus erythematosus, diabetes mellitus, chronic kidney disease, left femoral neck fracture, vitamin D deficiency, hyperlipidemia, hypothyroidism, hypertension, history of adrenal insufficiency, obstructive sleep apnea. FORMULATION AND RECOMMENDATIONS Based on this evaluation and the background information available to me at this time, Ms. Velasquez is exhibiting a moderate degree of depression. In addition she is also exhibiting cognitive impairment which is gradually progressing as per the history provided by the son. Her depression is compounded by several psychosocial stressors, i.e., the of her daughter, multiple medical issues. I am not sure if basic dementia workup has been done in the past but for the sake of completeness I have taken the liberty of ordering this. It appears the psychomotor retardation noticed at this time could be due to the Risperdal. I am not sure why she is taking the Risperdal. As such I feel we need to reduce the dose and eventually discontinue it. I have taken the liberty of making this change. She is on Celexa and can continue on it. We might have to make a change in regards to the antidepressant as well. I shared my diagnostic impression and recommendations with her son also and recommended that outpatient psychiatric followup and individual psychotherapy would be of help. The son was supportive of it but was not sure if she would comply with this recommendation or not. Thank you Dr. Trinidad for allowing me to participate in the care of Ms. Velasquez. I will follow her with you during this admission. MD ANGELICA Arteaga/JOSE /1:25 PM /2:55 PM
[2017-02-05] MEDS: WARFARIN SOD 4 MG TAB PO SCH (16:16)
[2017-02-05] MEDS: SODIUM CHLORIDE 0.9% FLUSH 10 ML FLUSH IV FLUSH SCH ×2 (16:17→20:46)
[2017-02-05 16:18] LABS: FREE T4 1.04 NG/DL (0.76-1.46)
[2017-02-05] MEDS: SODIUM CHLOR 0.9% 1000 ML INJ 1,000 ML IV SCH ×2 (18:10→20:12)
[2017-02-05] MEDS: risperiDONE 0.5 MG TAB PO SCH (20:44)
[2017-02-05] MEDS: PRAVASTATIN SOD 80 MG TAB PO SCH (20:44)
[2017-02-06] VITALS (9 sets, daily range): BP systolic 126–173; BP diastolic 72–85; PULSE 73–97; RESP 18–20; TEMP 97.5–98.7; O2SAT 97–99
[2017-02-06] MEDS: AZTREONAM INJ 1,000 MG in SODIUM CHLORIDE 0.9% INJ 100 ML IV SCH ×4 (00:09→23:39)
[2017-02-06] MEDS: LEVOTHYROXINE SODIUM 88 MCG TAB PO SCH (05:19)
[2017-02-06] MEDS: INSULIN ASPART SUPPLEMENTAL SCALE SQ SCH ×4 (05:21→20:35)
[2017-02-06] MEDS: SODIUM CHLOR 0.9% 1000 ML INJ 1,000 ML IV SCH ×3 (05:21→22:18)
[2017-02-06] MEDS: ASPIRIN EC 81 MG TABEC PO SCH (08:45)
[2017-02-06] MEDS: DOCUSATE SODIUM 50 MG/SENNA 8.6 MG TAB PO SCH ×3 (08:45→20:35)
[2017-02-06] MEDS: LISINOPRIL 20 MG TAB PO SCH (08:45)
[2017-02-06] MEDS: GABAPENTIN 400 MG CAP PO SCH ×3 (08:45→16:42)
[2017-02-06] MEDS: SODIUM CHLORIDE 0.9% FLUSH 10 ML FLUSH IV FLUSH SCH ×2 (09:03→20:36)
--- NOTE | 2017-02-06 09:12 | HHI.FPPN ---
Subjective Remarks Interviewed with at bedside. No complaints at this time. No fever, chills, nausea, vomiting, shortness of breath. (Ralf Trinidad MD R2) Objective Vitals Vital Signs Date Time Temp Pulse Resp B/P Pulse Ox O2 Delivery O2 Flow Rate FiO2 02/06/17 08:00 97.7 80 20 173/85 97 02/06/17 04:00 97.5 76 18 150/85 99 02/06/17 04:00 Room Air 02/06/17 00:00 97.5 73 18 126/83 98 02/06/17 00:00 Room Air 02/05/17 21:16 21 02/05/17 20:00 85 02/05/17 20:00 97.8 85 18 131/79 96 02/05/17 16:03 97.5 80 18 118/73 97 02/05/17 15:00 76 02/05/17 13:09 80 02/05/17 12:04 97.0 74 18 168/76 99 I/O 02/05/17 02/05/17 02/05/17 02/06/17 02/06/17 02/06/17 07:00 15:00 23:00 07:00 15:00 23:00 Intake Total 380 ml 120 ml 1226 ml Output Total 900 ml 380 ml 150 ml 500 ml Balance -900 ml 0 ml -30 ml 726 ml Intake Oral 380 ml 120 ml 0 ml IV Total 1226 ml Output Urine Total 900 ml 380 ml 150 ml 500 ml # Bowel Movements 0 (Ralf Trinidad MD R2) Result Diagram: 02/05/17 0545 02/05/17 0545 Objective Remarks O. CONSTITUTIONAL/GEN: Pale, somnolent, furrowed brow. EYES: conjunctiva pale, PERRLA, EOMI. ENT: Oral MM moist NECK: thyroid midline, carotids symmetrical. No lymphadenopathy. LUNGS: clear A-P, respiratory effort is normal. CARDIOVASCULAR: RR without murmur or gallop. No significant edema. No tachycardia. GI/ABD: soft without masses, without organomegaly. BS + SKIN: color pale, no rashes noted. HEME/LYMPH: no bruising, petechia or significant adenopathy MUSC: Extremities are normal in appearance. No calf tenderness. PSYCH/MENTAL STATUS: Alert and oriented x 2-3. Somnolent. (Ralf Trinidad MD R2) A/P Assessment and Plan 56-year-old female with a PMH significant for CVA x3, SLE, T2DM, CKD, HTN. Admitted for UTI associated with lactic acidosis and hypotension. 6 hospitalizations already in 2017. would like to wait and see how she responds to treatment before deciding on palliative/hospice consult. Discharge Planning Likely home with tomorrow. /patient has refused home health care. Physical therapy consulted- recommends PT at rehabilitation, /patient refused is requesting transportation help at discharge. Case management consulted to help with discharge needs (Ralf Trinidad MD R2) Discharge Planning Anticipate discharge 02-07-17. Attending Attestation Patient seen and examined. Case reviewed and discussed with the resident team. Agree with plan of care as discussed with me and documented in the resident note. (Danielle Trinidad MD) Problem List: (1) UTI (lower urinary tract infection) Status: Acute Plan: -Urine and blood culture pending Continue antibiotics Aztreonam 1g q8 (02/03- Patient will need prophylactic antibiotics at discharge (2) Depression Status: Chronic Plan: Psychiatry consult Dementia workup in progress Psychomotor retardation possibly due to Risperdal (this medication was for restless leg); decreasing Risperdal per psychiatry Follow-up with psychiatry as outpatient Continue Celexa (3) Physical deconditioning Status: Acute Plan: Patient is a fall risk. One-to-one precautions Physical therapy to evaluate fall risk and deconditioning Fall precautions (4) JAMAL (acute kidney injury) Status: Resolved Plan: Resolved. Encourage by mouth hydration. (5) Hypotension Status: Resolved Plan: Resolved (6) CVA (cerebral infarction) Status: Chronic Plan: History of CVA and is currently on Coumadin. Slightly subtherapeutic on admission -Adjust Coumadin as needed based on INR ( states best dose is 3.5 mg daily) -Monitor INR (7) Diabetes Status: Chronic Plan: Hold home metformin -Low dose sliding scale (8) Nutrition, metabolism, and development symptoms Status: Acute Plan: Diet: Regular, mechanical soft. Patient's request no restrictions on the type of food but is okay with mechanical soft foods Electrolytes: Monitor replace as needed Fluid: Tolerating by mouth DVT PPX: Warfarin and SCDs GI PPX: not indicated at this time Chronic medications: * CAD: continued apirin 81mg, statin, * Hypothyroidism: levothyroxine 88mcg * Restless leg syndrome: Gabapentin 800mg TID, Risperdal 2mg HS (Ralf Trinidad MD R2) Problem Qualifiers (1) Depression: Qualified Code: F33.2 - Severe episode of recurrent major depressive disorder, without psychotic features (2) Diabetes: Ralf Trinidad MD R2 Feb 06, 2017 09:12 Danielle Trinidad MD Feb 06, 2017 11:30
[2017-02-06 09:56] LABS: AUTOMATED NEUTROPHIL # 3.4 TH/MM3 (1.8-7.7); BASOPHIL # 0.1 TH/MM3 (0-0.2); BASOPHIL % 0.9 % (0.0-2.0); EOSINOPHIL # 0.2 TH/MM3 (0-0.4); EOSINOPHIL % 3.2 % (0.0-4.0); HEMATOCRIT 26.7 % (35.0-46.0); HEMO FLAGS DIFF FINAL; LYMPH % 30.5 % (9.0-44.0); LYMPHOCYTE # 1.8 TH/MM3 (1.0-4.8); MEAN CELL VOLUME 83.3 FL (80.0-100.0); MEAN CORPUSCULAR HEMOGLOBIN 28.2 PG (27.0-34.0); MEAN CORPUSCULAR HGB CONC 33.9 % (32.0-36.0); MONO % 7.8 % (0.0-8.0); NEUT % 57.6 % (16.0-70.0); PLATELET COUNT 156 TH/MM3 (150-450); RED BLOOD COUNT 3.21 MIL/MM3 (4.00-5.30); RED CELL DISTRIBUTION WIDTH 15.8 % (11.6-17.2); WHITE BLOOD COUNT 5.9 TH/MM3 (4.0-11.0)
[2017-02-06 10:06] LABS: INTERNATIONAL NORMALIZED RATIO 2.4 RATIO
[2017-02-06 10:21] LABS: BICARBONATE 22.1 MEQ/L (21.0-32.0); POTASSIUM 4.2 MEQ/L (3.5-5.1)
[2017-02-06] MEDS: risperiDONE 0.5 MG TAB PO SCH (20:35)
[2017-02-06] MEDS: PRAVASTATIN SOD 80 MG TAB PO SCH (20:35)
[2017-02-07] VITALS: BP 143/72; PULSE 76; RESP 18; TEMP 97.3; O2SAT 98
[2017-02-07 04:00] VITALS: BP 165/91; PULSE 78; RESP 18; TEMP 97.8; O2SAT 98
[2017-02-07] MEDS: LEVOTHYROXINE SODIUM 88 MCG TAB PO SCH (06:00)
[2017-02-07] MEDS: INSULIN ASPART SUPPLEMENTAL SCALE SQ SCH (06:18)
[2017-02-07] MEDS: SODIUM CHLOR 0.9% 1000 ML INJ 1,000 ML IV SCH (06:21)
[2017-02-07] MEDS ORDERED: CIPR250T2 PO (07:58)
[2017-02-07] MEDS ORDERED: RISP0.5T20 PO (07:58)
--- NOTE | 2017-02-07 07:59 | HHI.DCPOC ---
Discharge Care Plan Diagnosis: (1) UTI (urinary tract infection) (2) Depression with anxiety Goals to Promote Your Health * To prevent worsening of your condition and complications * To maintain your health at the optimal level Directions to Meet Your Goals Take your medications as prescribed Follow your dietary instruction Follow activity as directed Keep your appointments as scheduled Take your immunizations and boosters as scheduled If your symptoms worsen call your PCP, if no PCP go to Urgent Care Center or Emergency Room Smoking is Dangerous to Your Health. Avoid second hand smoke Call the 24-hour hour crisis hotline for domestic abuse at Ralf Trinidad MD R2 Feb 07, 2017 07:59
[2017-02-07 08:16] VITALS: BP 167/95; PULSE 76; RESP 18; TEMP 97.9; O2SAT 99
[2017-02-07 08:30] VITALS: PULSE 77
[2017-02-07 08:43] LABS: AUTOMATED NEUTROPHIL # 2.9 TH/MM3 (1.8-7.7); BASOPHIL # 0.1 TH/MM3 (0-0.2); BASOPHIL % 0.9 % (0.0-2.0); EOSINOPHIL # 0.2 TH/MM3 (0-0.4); EOSINOPHIL % 4.4 % (0.0-4.0); HEMATOCRIT 27.9 % (35.0-46.0); HEMO FLAGS DIFF FINAL; LYMPH % 36.4 % (9.0-44.0); LYMPHOCYTE # 2.1 TH/MM3 (1.0-4.8); MEAN CELL VOLUME 85.1 FL (80.0-100.0); MEAN CORPUSCULAR HEMOGLOBIN 27.6 PG (27.0-34.0); MEAN CORPUSCULAR HGB CONC 32.4 % (32.0-36.0); MONO % 7.8 % (0.0-8.0); NEUT % 50.5 % (16.0-70.0); PLATELET COUNT 162 TH/MM3 (150-450); RED BLOOD COUNT 3.28 MIL/MM3 (4.00-5.30); RED CELL DISTRIBUTION WIDTH 16.2 % (11.6-17.2); WHITE BLOOD COUNT 5.7 TH/MM3 (4.0-11.0)
[2017-02-07 08:46] LABS: INTERNATIONAL NORMALIZED RATIO 1.9 RATIO; PROTHROMBIN TIME - PATIENT 21.6 SEC (9.8-11.6)
[2017-02-07] MEDS: AZTREONAM INJ 1,000 MG in SODIUM CHLORIDE 0.9% INJ 100 ML IV SCH (08:52)
[2017-02-07] MEDS: SODIUM CHLORIDE 0.9% FLUSH 10 ML FLUSH IV FLUSH SCH (08:52)
[2017-02-07] MEDS: GABAPENTIN 400 MG CAP PO SCH (08:53)
[2017-02-07] MEDS: ASPIRIN EC 81 MG TABEC PO SCH (08:53)
[2017-02-07] MEDS: DOCUSATE SODIUM 50 MG/SENNA 8.6 MG TAB PO SCH (08:53)
[2017-02-07] MEDS: LISINOPRIL 20 MG TAB PO SCH (08:53)
[2017-02-07 08:57] LABS: BICARBONATE 21.1 MEQ/L (21.0-32.0); POTASSIUM 4.3 MEQ/L (3.5-5.1)
--- NOTE | 2017-02-07 09:59 | HHI.FPPN ---
Subjective Remarks Patient interviewed with at bedside. Patient is doing well this morning and is ready to go home. Both patient and understand she will go home with a prophylactic antibiotic, ciprofloxacin. She denies fever, chills , nausea, vomiting. /patient does not want to go home with home health. They also do not want physical therapy to be coming to her home. and patient state they will call home health for services when they need them. ( Ralf Trinidad MD R2) Objective Vitals Vital Signs Date Time Temp Pulse Resp B/P Pulse Ox O2 Delivery O2 Flow Rate FiO2 02/07/17 08:16 97.9 76 18 167/95 99 02/07/17 04:00 97.8 78 18 165/91 98 02/07/17 04:00 Room Air 02/07/17 00:00 97.3 76 18 143/72 98 02/07/17 00:00 Room Air 02/06/17 20:00 80 02/06/17 20:00 Room Air 02/06/17 20:00 97.7 85 18 133/72 97 02/06/17 17:39 98 21 02/06/17 16:00 97.5 80 20 134/79 99 02/06/17 12:00 98.7 97 20 130/81 97 02/06/17 10:05 97 21 I/O 02/06/17 02/06/17 02/06/17 02/07/17 02/07/17 02/07/17 07:00 15:00 23:00 07:00 15:00 23:00 Intake Total 1226 ml 480 ml 240 ml 2087 ml Output Total 500 ml 575 ml 650 ml 600 ml Balance 726 ml -95 ml -410 ml 1487 ml Intake Oral 0 ml 480 ml 240 ml 120 ml IV Total 1226 ml 1967 ml Output Urine Total 500 ml 575 ml 650 ml 600 ml # Bowel Movements 0 0 1 (Ralf Trinidad MD R2) Result Diagram: 02/07/17 0650 02/07/17 0650 Objective Remarks O. CONSTITUTIONAL/GEN: Pale, somnolent, furrowed brow. EYES: conjunctiva pale, PERRLA, EOMI. ENT: Oral MM moist NECK: thyroid midline, carotids symmetrical. No lymphadenopathy. LUNGS: clear A-P, respiratory effort is normal. CARDIOVASCULAR: RR without murmur or gallop. No significant edema. No tachycardia. GI/ABD: soft without masses, without organomegaly. BS + SKIN: color pale, no rashes noted. HEME/LYMPH: no bruising, petechia or significant adenopathy MUSC: Extremities are normal in appearance. No calf tenderness. PSYCH/MENTAL STATUS: Alert and oriented x 2-3. Somnolent. (Ralf Trinidad MD R2) A/P Assessment and Plan 56-year-old female with a PMH significant for CVA x3, SLE, T2DM, CKD, HTN. Admitted for UTI associated with lactic acidosis and hypotension. Now resolved. Will be discharged with prophylactic antibiotic as below. Discharge Planning Discharge today and patient refuses home health (Ralf Trinidad MD R2) Attending Attestation Patient seen and examined. Case reviewed and discussed with the resident team. Agree with plan of care as discussed with me and documented in the resident note. Had discussion with her and her about abx to prevent UTIs. She was on macrobid 100 mg qhs per clinic notes but had missed multiple days before this was renewed. Per UTD cipro is better overall though of course nothing is perfect and macrobid was an acceptable choice. However now she will go home on daily cipro 250 which should be able to be cut to a lower dose as an outpt. We discussed that if she continued to get UTIs despite abx prophylaxis that a urology appointment could be considered as it is unclear as to why she keeps getting these UTIs when she did not have them in her earlier life. Her kidneys look fine on ultrasound. (Pauly Hemphill MD) Problem List: (1) UTI (lower urinary tract infection) Status: Acute Plan: -Urine culture: Acinetobacter; pansensitive Continue antibiotics Aztreonam 1g q8 (02/03-02/07) Start prophylactic ciprofloxacin 250 mg daily because of recurrent UTI (2) Depression Status: Chronic Plan: Psychiatry consult decreasing Risperdal per psychiatry to 0.5 mg at night Follow-up with psychiatry as outpatient Continue Celexa (3) Physical deconditioning Status: Acute Plan: Patient is a fall risk. One-to-one precautions Physical therapy to evaluate fall risk and deconditioning Fall precautions (4) JAMAL (acute kidney injury) Status: Resolved Plan: Resolved. Encourage by mouth hydration. (5) Hypotension Status: Resolved Plan: Resolved (6) CVA (cerebral infarction) Status: Chronic Plan: History of CVA and is currently on Coumadin. Slightly subtherapeutic on admission -Adjust Coumadin as needed based on INR ( states best dose is 3.5 mg daily) -Monitor INR (7) Diabetes Status: Chronic Plan: Hold home metformin -Low dose sliding scale (8) Nutrition, metabolism, and development symptoms Status: Acute Plan: Diet: Regular, mechanical soft. Patient's request no restrictions on the type of food but is okay with mechanical soft foods Electrolytes: Monitor replace as needed Fluid: Tolerating by mouth DVT PPX: Warfarin and SCDs GI PPX: not indicated at this time Chronic medications: * CAD: continued apirin 81mg, statin, * Hypothyroidism: levothyroxine 88mcg * Restless leg syndrome: Gabapentin 800mg TID, Risperdal 2mg HS (Ralf Trinidad MD R2) Problem Qualifiers (1) Depression: Qualified Code: F33.2 - Severe episode of recurrent major depressive disorder, without psychotic features (2) Diabetes: Ralf Trinidad MD R2 Feb 07, 2017 09:59 Pauly Hemphill MD Feb 07, 2017 13:36
--- NOTE | 2017-02-07 10:04 | HHI.DS ---
Discharge Summary Admission Date Feb 03, 2017 at 13:45 Discharge Date: Feb 07, 2017 Admitting Diagnosis (1) UTI (lower urinary tract infection) Diagnosis: Principal Plan: -Urine culture: Acinetobacter; pansensitive Continue antibiotics Aztreonam 1g q8 (02/03-02/07) Start prophylactic ciprofloxacin 250 mg daily because of recurrent UTI (2) Depression Diagnosis: Secondary Plan: Psychiatry consult decreasing Risperdal per psychiatry to 0.5 mg at night Follow-up with psychiatry as outpatient Continue Celexa (3) Physical deconditioning Diagnosis: Secondary Plan: Patient is a fall risk. One-to-one precautions Physical therapy to evaluate fall risk and deconditioning Fall precautions (4) JAMAL (acute kidney injury) Diagnosis: Secondary Plan: Resolved. Encourage by mouth hydration. (5) Hypotension Diagnosis: Secondary Plan: Resolved (6) CVA (cerebral infarction) Diagnosis: Secondary Plan: History of CVA and is currently on Coumadin. Slightly subtherapeutic on admission -Adjust Coumadin as needed based on INR ( states best dose is 3.5 mg daily) -Monitor INR (7) Diabetes Diagnosis: Secondary Plan: Hold home metformin -Low dose sliding scale (8) Nutrition, metabolism, and development symptoms Diagnosis: Secondary Plan: Diet: Regular, mechanical soft. Patient's request no restrictions on the type of food but is okay with mechanical soft foods Electrolytes: Monitor replace as needed Fluid: Tolerating by mouth DVT PPX: Warfarin and SCDs GI PPX: not indicated at this time Chronic medications: * CAD: continued apirin 81mg, statin, * Hypothyroidism: levothyroxine 88mcg * Restless leg syndrome: Gabapentin 800mg TID, Risperdal 2mg [facility] Psych[facility] Brief History Patient is a 56-year-old female with a PMH significant for CVA x3, SLE, T2DM, CKD, HTN. Initially presented to clinic and was seen by Dr. Dumont. She was noted to be hypotensive and endorsed fatigue, lethargy, chills. She reported that she felt like her prior UTI at which time she required a 4 day hospitalization due to urosepsis. During the hospitalization she was treated with vancomycin and aztreonam initially but then continued on aztreonam for a total of 3 days. Urine culture was positive for enterococcus faecalis which was resistant to ciprofloxacin and tetracycline but otherwise sensitive. She responded well to IV antibiotics and IV hydration. She was then discharged on Macrobid with the plan of starting Cipro for prophylaxis due to history of recurrent UTIs. There was also discussion at the prior hospitalization for possible hospice due to her declining health and recurrent UTIs. However this was ultimately declined as patient did return to her baseline. Currently, patient is able to state that she has been feeling unwell over the last week but is unable to characterize her symptoms. Remaining history was obtained from her . reports that for the last 3 days patient has been having a significant decrease in her appetite and energy level. This morning she was falling asleep eating breakfast which is very unusual. She otherwise was asymptomatic and patient denies any pain or dysuria. Of note, patient's does state she is "blah" at baseline. In regards to the prophylactic antibiotic, there appears to be in some issue in obtaining the medication and she was not on any form of antibiotics between 01/19 through 01/25. She was started on an unknown antibiotic from 01/26 until now. CBC/BMP: 02/07/17 0650 02/07/17 0650 Significant Findings Laboratory Tests Test 02/05/17 02/06/17 02/07/17 05:45 09:26 06:50 Red Blood Count 3.68 MIL/MM3 3.21 MIL/MM3 3.28 MIL/MM3 (4.00-5.30) (4.00-5.30) (4.00-5.30) Hemoglobin 10.1 GM/DL 9.0 GM/DL 9.0 GM/DL (11.6-15.3) (11.6-15.3) (11.6-15.3) Hematocrit 30.9 % 26.7 % 27.9 % (35.0-46.0) (35.0-46.0) (35.0-46.0) Monocytes (%) (Auto) 8.6 % (0.0-8.0) Eosinophils (%) (Auto) 5.5 % (0.0-4.0) 4.4 % (0.0-4.0) Erythrocyte Sedimentation Rate 32 mm/hr (0-30) Prothrombin Time 32.1 SEC 27.0 SEC 21.6 SEC (9.8-11.6) (9.8-11.6) (9.8-11.6) Chloride Level 112 MEQ/L 110 MEQ/L 114 MEQ/L (98-107) (98-107) (98-107) Blood Urea Nitrogen 27 MG/DL (7-18) 21 MG/DL (7-18) Creatinine 1.13 MG/DL (0.50-1.00) Estimat Glomerular Filtration 50 ML/MIN (>89) 63 ML/MIN (>89) 68 ML/MIN (>89) Rate Calcium Level 8.0 MG/DL 7.7 MG/DL 7.9 MG/DL (8.5-10.1) (8.5-10.1) (8.5-10.1) Magnesium Level 1.0 MG/DL (1.5-2.5) Aspartate Amino Transf 9 U/L (15-37) (AST/SGOT) Alanine Aminotransferase 7 U/L (10-53) (ALT/SGPT) Total Protein 5.2 GM/DL (6.4-8.2) Albumin 2.0 GM/DL (3.4-5.0) Thyroid Stimulating Hormone 0.288 uIU/ML 3rd Gen (0.358-3.740) Random Glucose 138 MG/DL 69 MG/DL (74-106) (74-106) Imaging Last Impressions Head CT 02/03/17 1142 Signed Impressions: Service Date/Time: January 12:23 - CONCLUSION: Stable meningioma on the right and chronic changes without any significant hemorrhage or mass effect. K. Anmol Quinteros MD Chest X-Ray 02/03/17 1142 Signed Impressions: Service Date/Time: January 12:51 - CONCLUSION: 1. No acute cardiopulmonary findings. Zelalem Zhou MD Renal Ultrasound 02/03/17 0000 Signed Impressions: Service Date/Time: January 16:59 - CONCLUSION: Normal examination. Jordan Borges Jr., MD PE at Discharge O. CONSTITUTIONAL/GEN: Pale, somnolent, furrowed brow. EYES: conjunctiva pale, PERRLA, EOMI. ENT: Oral MM moist NECK: thyroid midline, carotids symmetrical. No lymphadenopathy. LUNGS: clear A-P, respiratory effort is normal. CARDIOVASCULAR: RR without murmur or gallop. No significant edema. No tachycardia. GI/ABD: soft without masses, without organomegaly. BS + SKIN: color pale, no rashes noted. HEME/LYMPH: no bruising, petechia or significant adenopathy MUSC: Extremities are normal in appearance. No calf tenderness. PSYCH/MENTAL STATUS: Alert and oriented x 2-3. Somnolent. Hospital Course Patient has frequent UTIs. She was started on IV aztreonam and IV fluid. By the next day, she was feeling much better. Her hypotension had resolved. She was awake alert and oriented 3 and back to her baseline. Her urine culture grew Acetobacter which was pansensitive. Physical therapy was consulted and recommended home health with PT. The patient and refused home health care. The patient needs to be on prophylactic ciprofloxacin to prevent UTIs in the future. This will be followed by her PCP. Psychiatry was consulted for severe depression. They recommended following with psychiatry as an outpatient , decreasing the Risperdal to 0.5 mg at night, and continuing the Celexa. The patient's INR was 1.9 at discharge. She will be continued on Coumadin 4 mg daily. INR to be checked in 3-5 days and adjusted as needed. Pt Condition on Discharge: Stable Discharge Disposition: Discharge Home Discharge Instructions DIET: Follow Instructions for: As Tolerated, No Restrictions Activities you can perform: See Additionl Instruction Other Activity Instructions: Per PT recs Follow up Referrals: PCP Follow-up - 1 Week Psychiatry Adult - 2 Weeks New Orders: PT/INR - 3-5 Days New Medications: Ciprofloxacin (Ciprofloxacin) 250 Mg Tab 250 MG PO DAILY Infection #30 Ref 0 TAB Risperidone (Risperdal) 0.5 Mg Tab 0.5 MG PO HS #30 TAB Continued Medications: Aspirin DR (Aspirin Adult Low Strength) 81 Mg Tabdr 81 MG PO DAILY TAB Cholecalciferol (Vitamin D3) 50,000 Unit Cap 60696 UNITS PO WEEKLY Nutritional Supplement #1 Ref 0 BOTTLE Citalopram (Citalopram) 40 Mg Tab 40 MG PO DAILY hold this medication until course of antibiotics has been completed Control Depression #90 Ref 0 TAB Ferrous Sulfate Liq (Ferrous Sulfate Liq) 300 Mg/5 Ml Soln 300 MG PO BID Nutritional Supplement #300 Ref 0 ML Gabapentin (Gabapentin) 800 Mg Tab 800 MG PO TID #270 Ref 0 TAB Hydrocodone-Acetaminophen (Hydrocodone-Acetaminophen) 10-325 mg Tab 1 TAB PO Q6H PRN PAIN #120 Ref 0 TAB Levothyroxine (Levothyroxine) 88 Mcg Tab 88 MCG PO DAILY Thyroid #90 Ref 0 TAB Lisinopril (Lisinopril) 40 Mg Tab 40 MG PO DAILY Blood Pressure Management #30 Ref 6 TAB Metformin (Metformin) 1,000 Mg Tab 1000 MG PO BIDPC With meals Blood Sugar Management #60 Ref 6 TAB Multiple Vitamin (Multi-Vitamin Daily) 1 Tab Tab 1 TAB PO DAILY Nutritional Supplement Ref 0 TAB Simvastatin (Simvastatin) 40 Mg Tab 40 MG PO HS Cholesterol Management #90 Ref 6 TAB Tramadol (Tramadol) 50 Mg Tab 50 MG PO Q6H PRN PAIN #120 Ref 0 TAB Warfarin (Coumadin) 4 Mg Tab 4 MG PO DAILY Prevent Blood Clot #30 Ref 0 TAB Discontinued Medications: Risperidone (Risperdal) 2 Mg Tab 2 MG PO HS #30 Ref 0 TAB Ralf Trinidad MD R2 Feb 07, 2017 10:04
[2017-02-07 11:26] LABS: RAPID PLASMA REAGIN SCREEN NON-REACTIVE (NON-REACTVE)
[2017-02-07 12:11] VITALS: BP 164/98; PULSE 90; RESP 18; TEMP 98.5; O2SAT 95
[2017-02-07 14:45] LABS: ANA SCREEN NEG (NEG)
== END 2017-02-07 12:36 | disposition home or self-care (01) | DRG 690 ==
LOC: NEPE 11:21 → NEDH 13:45 → N04B 15:43
PROVIDERS: ADMIT Family Medicine; ATTEND Family Medicine
PROC: 0T9B70Z Drainage of Bladder with Drainage Device, Via Natural or Artificial Opening (ICD-10-PCS; principal; 2017-02-03)
DX: N39.0 Urinary tract infection, site not specified (principal); E87.2 Acidosis; E11.22 Type 2 diabetes mellitus with diabetic chronic kidney disease; I95.9 Hypotension, unspecified; N17.9 Acute kidney failure, unspecified; F33.2 Major depressive disorder, recurrent severe without psychotic features; F03.90 Unspecified dementia, unspecified severity, without behavioral disturbance, psychotic disturbance, mood disturbance, and anxiety; E27.40 Unspecified adrenocortical insufficiency; N18.3 Chronic kidney disease, stage 3 (moderate); M32.9 Systemic lupus erythematosus, unspecified; M19.90 Unspecified osteoarthritis, unspecified site; J45.909 Unspecified asthma, uncomplicated; F41.9 Anxiety disorder, unspecified; E78.00 Pure hypercholesterolemia, unspecified; K44.9 Diaphragmatic hernia without obstruction or gangrene; G47.33 Obstructive sleep apnea (adult) (pediatric); E03.9 Hypothyroidism, unspecified; I12.9 Hypertensive chronic kidney disease with stage 1 through stage 4 chronic kidney disease, or unspecified chronic kidney disease; E55.9 Vitamin D deficiency, unspecified; G25.81 Restless legs syndrome; I25.10 Atherosclerotic heart disease of native coronary artery without angina pectoris; E78.5 Hyperlipidemia, unspecified; F12.10 Cannabis abuse, uncomplicated; D32.9 Benign neoplasm of meninges, unspecified; Z91.81 History of falling; B95.2 Enterococcus as the cause of diseases classified elsewhere; Z16.23 Resistance to quinolones and fluoroquinolones; Z86.73 Personal history of transient ischemic attack (TIA), and cerebral infarction without residual deficits; Z87.440 Personal history of urinary (tract) infections; Z79.01 Long term (current) use of anticoagulants
CPT/HCPCS: 51702; 70450; 71010; 76775; 80048; 80053; 80307; 81001; 82140; 82550; 82607; 82746; 82948; 83605; 83735; 84439; 84443; 84484; 85025; 85610; 85652; 86038; 86592; 87040; 87077; 87086; 87186; 96361; 96365; J1815; J2543; J3370; J3475; J7030; J7050

== ENCOUNTER → 2017-07-16 | Outpatient (CLI) | payer OTHER ==
[~2017-07-16] MED LIST changes: -AMLO5 PO; -ASPI1TAB91 PO; +ASPI81TA16 PO; -CHOL1CAP34 PO; +CIPR250T2 PO; +COUM2TAB PO; +ESTR42.5V VAGINAL; +GABA600T PO; -GABA800T PO; +LEVO75TA3 PO; -LEVO88TA2 PO; -MACR100C2 PO; +NYST100084 TOPICAL; -SIMV40TA PO; +WARF-18 PO
[2017-07-16 12:05] LABS: BACTERIA, URINE FEW /hpf; BLOOD, URINE NEG (NEG); COMMENT (UR) CULTURE INDICATED; CULTURE IF INDICATED CULTURE INDICATED; GLUCOSE,URINE NEG (NEG); HYALINE CAST, URINE 1 /lpf (RARE); KETONE, URINE NEG (NEG); MUCUS URINE FEW /lpf (OCC); NITRITE,URINE NEG (NEG); PH, URINE 5.5 (5.0-8.5); SQUAMOUS EPITHELIAL CELL URINE <1 /hpf (0-5); URINE COLOR YELLOW (YELLW/STRAW)
== END ==
LOC: HLAB 10:30
PROVIDERS: ATTEND Emergency Medicine Emergency Medical Services
DX: N39.0 Urinary tract infection, site not specified (principal)
CPT/HCPCS: 81001; 87086